=== PATIENT | male | born 1960 | race Caucasian/White ===

== ENCOUNTER 2016-05-31 10:38 | Emergency (ER) | payer MEDICARE, OTHER ==
--- NOTE | 2016-05-31 11:45 | ED ---
General Adult HPI - General Chief complaint: Recheck/Abnormal Lab/Rx Stated complaint: chills for 3 months, autoimmune Time Seen by Provider: 05/31/16 11:15 Source: patient, RN notes reviewed, old records reviewed Mode of arrival: ambulatory Limitations: physical limitation - History of Present Illness Initial comments: This is a 55-year-old male here for evaluation. Patient coming in for evaluation of chronic chills. Not very well. Patient's states he's been feeling cold for about 3 months now. States he just has periods of chills, cold sweats. Patient does have complex medical history related to HIV and it's comorbidities. Patient has not followed up with his infectious disease doctor in about 6 months. Unsure of CD4 counts. Denies recent fevers. He has concern for possible pneumonia. Patient does take multiple medications and hasn 't taken all medications as prescribed - Related Data Home Medications Medication Instructions Recorded Confirmed Baclofen [Lioresal] 20 mg PO TID 05/31/16 05/31/16 Diltiazem HCl [Cardizem LA] 360 mg PO DAILY 05/31/16 05/31/16 Divalproex ER [Depakote ER] 500 mg PO DAILY 05/31/16 05/31/16 Docusate [Colace] 100 mg PO DAILY PRN 05/31/16 05/31/16 Dolutegravir Sodium [Tivicay] 50 mg PO DAILY 05/31/16 05/31/16 Emtricitabine/Tenofovir [Truvada 1 each PO DAILY 05/31/16 05/31/16 200 mg-300 mg Tablet] Loperamide [Imodium] 2 mg PO DIRECTED PRN 05/31/16 05/31/16 Loratadine [Claritin] 10 mg PO DAILY 05/31/16 05/31/16 Meloxicam [Mobic] 7.5 mg PO DAILY 05/31/16 05/31/16 Morphine Sulfate ER [Ms Contin 15 mg PO Q12HR 05/31/16 05/31/16 15Mg] [place]-3/Dha/Epa/Fish Oil [Fish Oil 1 each PO DAILY 05/31/16 05/31/16 500 mg Softgel] Polyethylene Glycol 3350 [Miralax] 17 gm PO DAILY 05/31/16 05/31/16 Quinapril HCl [Accupril] 10 mg PO DAILY 05/31/16 05/31/16 Ranitidine HCl [Zantac] 150 mg PO BID 05/31/16 05/31/16 buPROPion HCL [Wellbutrin SR] 100 mg PO BID 05/31/16 05/31/16 Allergies Allergy/AdvReac Type Severity Reaction Status Date / Time azithromycin Allergy Rash/Hives Verified 05/31/16 10:56 [From Zithromax Z-Simone] Sulfa (Sulfonamide Allergy Rash/Hives Verified 05/31/16 10:55 Antibiotics) Review of Systems ROS Statement: Those systems with pertinent positive or pertinent negative responses have been documented in the HPI. ROS Other: All systems not noted in ROS Statement are negative. Past Medical History Past Medical History: COPD, GERD/Reflux, Hypertension, Osteoarthritis (OA) Additional Past Medical History / Comment(s): HIV/AIDS(1990) back pain, neuropathy,sleep apnea History of Any Multi-Drug Resistant Organisms: None Reported Additional Past Surgical History / Comment(s): neck surgery, throat surgery Past Psychological History: Bipolar, Depression, Panic Disorder Smoking Status: Current every day smoker Past Alcohol Use History: None Reported Past Drug Use History: None Reported General Exam Limitations: physical limitation General appearance: alert, in no apparent distress Head exam: Present: atraumatic, normocephalic, normal inspection Eye exam: Present: normal appearance, PERRL, EOMI. Absent: scleral icterus, conjunctival injection, periorbital swelling ENT exam: Present: normal exam, mucous membranes moist Neck exam: Present: normal inspection. Absent: tenderness, meningismus, lymphadenopathy Respiratory exam: Present: normal lung sounds bilaterally. Absent: respiratory distress, wheezes, rales, rhonchi, stridor Cardiovascular Exam: Present: regular rate, normal rhythm, normal heart sounds. Absent: systolic murmur, diastolic murmur, rubs, gallop, clicks GI/Abdominal exam: Present: soft, normal bowel sounds. Absent: distended, tenderness, guarding, rebound, rigid Extremities exam: Present: normal inspection, full ROM, normal capillary refill. Absent: tenderness, pedal edema, joint swelling, calf tenderness Back exam: Present: normal inspection Neurological exam: Present: alert, oriented X3, CN II-XII intact Psychiatric exam: Present: normal affect, normal mood Skin exam: Present: warm, dry, intact, normal color. Absent: rash Course Vital Signs 05/31/16 10:47 Temperature 97.9 F Pulse Rate 100 Respiratory 18 Rate Blood Pressure 117/92 O2 Sat by Pulse 96 Oximetry - Reevaluation(s) Reevaluation #1: 05/31/16 11:44 Patient's in no acute distress. Medical Decision Making - Medical Decision Making 52 female here with episodic chills, no specific findings frailness on physical exam, x-rays negative for pneumonia. Patient given suggestion to follow up with infectious disease Disposition Clinical Impression: Chills (without fever), Weakness Disposition: HOME SELF-CARE Condition: Good Instructions: Weakness (ED) Referrals: Osmin Morrison MD [Primary Care Provider] - 1-2 days
--- NOTE | 2016-05-31 11:55 | XR ---
EXAMINATION TYPE: XR chest 2V DATE OF EXAM: 05/31/2016 11:50 AM COMPARISON: NONE HISTORY: Cough congestion and chills for 3 months. TECHNIQUE: Frontal and lateral views of the chest are obtained. FINDINGS: Underlying emphysematous change is present. There is no focal air space opacity, pleural ef fusion, or pneumothorax seen. The cardiac silhouette size is within normal limits. The osseous str uctures are somewhat demineralized. Anterior fusion plate lower cervical spine is noted. IMPRESSION: Chronic emphysematous change without acute pulmonary process.
[2016-05-31 12:26] VITALS: BP 120/77; PULSE 72; RESP 16; TEMP 97.5
== END 2016-05-31 12:25 | disposition home or self-care (01) ==
LOC: EC 10:38
DX: R68.83 Chills (without fever) (principal); R53.1 Weakness; B20 Human immunodeficiency virus [HIV] disease; I10 Essential (primary) hypertension; K21.9 Gastro-esophageal reflux disease without esophagitis; Z88.1 Allergy status to other antibiotic agents; Z88.2 Allergy status to sulfonamides; M19.90 Unspecified osteoarthritis, unspecified site; F17.200 Nicotine dependence, unspecified, uncomplicated; F31.9 Bipolar disorder, unspecified; F41.0 Panic disorder [episodic paroxysmal anxiety]
CPT/HCPCS: 71020; 99283

== ENCOUNTER → 2016-06-27 | Outpatient (CLI) | payer MEDICARE, OTHER ==
--- NOTE | 2016-06-27 16:08 | CT ---
EXAMINATION TYPE: CT facial bones w con, CT soft tissue neck w con DATE OF EXAM: 06/27/2016 3:53 PM COMPARISON: NONE HISTORY: PT states of lump to left side of cheek area x1 year. CT DLP: 479.8 mGycm Automated exposure control for dose reduction was used. CONTRAST: CT scan of the facial bones is performed with IV Contrast, patient injected with 100 mL of Omnipaque 300. TECHNIQUE: CT scan of the sinuses is performed without contrast, axial images are obtained, coronal r eformatted images are also reviewed. FINDINGS: The paranasal sinuses including the frontal, ethmoid, sphenoid, and maxillary sinuses bila terally are well-aerated without abnormal opacification. Small mucous retention cyst at the base of the right maxillary sinus. The ostiomeatal complex is patent bilaterally on the coronal images. Visualized portion of mastoid air cells show no abnormal opacification. The globes are intact bilate rally. IMPRESSION: Small mucous retention cyst at the base of the right maxillary sinus. No additional abnor mality identified related to the sinuses. EXAMINATION TYPE: CT facial bones w con, CT soft tissue neck w con DATE OF EXAM: 06/27/2016 3:53 PM COMPARISON: NONE HISTORY: PT states of lump to left side of cheek area x1 year. CT DLP: 479.8 mGycm CONTRAST: CT scan of the neck is performed with IV Contrast, patient injected with 100 mL of Omnipaque 300. Contrast enhanced CT of the neck was performed from the skull base through the lung apices. AIRWAY: The supraglottic, glottic, and subglottic portions of the airway appear patent and free of mass. SALIVARY GLANDS: The left parotid gland is slightly atrophic relative to its right-sided counterpart. There is marked dilatation of the parotid Stensen's duct measuring up to 8.5 mm. Dilatation extends from intraglandular branches to the buccal opening. Definite radiopaque calculus is not identified wi th certainty. No obvious mass seen however clinical correlation advised. Right parotid gland is of no rmal size. Submandibular glands are unremarkable. THYROID GLAND: No nodules or masses seen. LYMPH NODES: No adenopathy seen greater than 1cm. LUNG APICES: No nodule or mass is seen. OTHER: Vascular structures are patent. No significant degenerative change of the cervical spine. N o abscess seen. Fluid within the left-sided mastoid air cells. IMPRESSION: There is marked dilatation of the parotid Stensen's duct measuring up to 8.5 mm. Dilatation extends from intraglandular branches to the buccal opening. Definite radiopaque calculus is not identified wi th certainty.
== END | disposition home or self-care (01) ==
LOC: RADCTMAIN 14:48
DX: M27.40 Unspecified cyst of jaw (principal)
CPT/HCPCS: 70487; 70491; Q9967

== ENCOUNTER 2017-04-19 11:57 | Emergency (ER) | payer MEDICARE, OTHER ==
[2017-04-19 12:11] VITALS: BP 137/75; PULSE 91; RESP 18; TEMP 97.8
--- NOTE | 2017-04-19 12:45 | ED ---
ENT HPI - General Chief complaint: Dental/Oral Stated complaint: mouth pain Time Seen by Provider: 04/19/17 12:11 Source: patient, RN notes reviewed Mode of arrival: ambulatory Limitations: no limitations - History of Present Illness Initial comments: This is a 56-year-old male who presents to the emergency department with chief complaint of mouth pain. Patient states that he has been experiencing right lower gum-line pain since yesterday. This morning he awoke and noticed some swelling of the left cheek. Patient states that he has had dental infections in the past has been treated with penicillin. He requests a prescription for antibiotics at this time. Denies abscess or drainage. Denies fever, chills, chest pain, shortness of breath, abdominal pain, nausea or vomiting, constipation or diarrhea, dysuria or hematuria, numbness or tingling, headache or vision changes. - Related Data Home Medications Medication Instructions Recorded Confirmed Baclofen [Lioresal] 20 mg PO TID 05/31/16 05/31/16 Diltiazem HCl [Cardizem LA] 360 mg PO DAILY 05/31/16 05/31/16 Divalproex ER [Depakote ER] 500 mg PO DAILY 05/31/16 05/31/16 Docusate [Colace] 100 mg PO DAILY PRN 05/31/16 05/31/16 Dolutegravir Sodium [Tivicay] 50 mg PO DAILY 05/31/16 05/31/16 Emtricitabine/Tenofovir (Tdf) 1 each PO DAILY 05/31/16 05/31/16 [Truvada 200 mg-300 mg Tablet] Loperamide [Imodium] 2 mg PO DIRECTED PRN 05/31/16 05/31/16 Loratadine [Claritin] 10 mg PO DAILY 05/31/16 05/31/16 Meloxicam [Mobic] 7.5 mg PO DAILY 05/31/16 05/31/16 Morphine Sulfate ER [Ms Contin 15 mg PO Q12HR 05/31/16 05/31/16 15Mg] [place]-3/Dha/Epa/Fish Oil [Fish Oil 1 each PO DAILY 05/31/16 05/31/16 500 mg Softgel] Polyethylene Glycol 3350 [Miralax] 17 gm PO DAILY 05/31/16 05/31/16 Quinapril HCl [Accupril] 10 mg PO DAILY 05/31/16 05/31/16 Ranitidine HCl [Zantac] 150 mg PO BID 05/31/16 05/31/16 buPROPion HCL [Wellbutrin SR] 100 mg PO BID 05/31/16 05/31/16 Previous Rx's Medication Instructions Recorded Amoxicillin 500 mg PO Q8H #30 capsule 05/31/16 Azithromycin [Zithromax] 0 mg PO DIRECTED #6 tab 05/31/16 Penicillin V Potassium [Pen Vee K] 500 mg PO QID 10 Days tab 04/19/17 Allergies Allergy/AdvReac Type Severity Reaction Status Date / Time azithromycin Allergy Rash/Hives Verified 04/19/17 12:11 [From Zithromax Z-Simone] Sulfa (Sulfonamide Allergy Rash/Hives Verified 04/19/17 12:11 Antibiotics) Review of Systems ROS Statement: Those systems with pertinent positive or pertinent negative responses have been documented in the HPI. ROS Other: All systems not noted in ROS Statement are negative. Past Medical History Past Medical History: COPD, GERD/Reflux, Hypertension, Osteoarthritis (OA) Additional Past Medical History / Comment(s): HIV/AIDS(1990) back pain, neuropathy,sleep apnea History of Any Multi-Drug Resistant Organisms: None Reported Additional Past Surgical History / Comment(s): neck surgery, throat surgery Past Psychological History: Bipolar, Depression, Panic Disorder Smoking Status: Current every day smoker Past Alcohol Use History: None Reported Past Drug Use History: None Reported General Exam - General Exam Comments Initial Comments: General: Awake and alert, well-developed; in no apparent distress. HEENT: Head atraumatic, normocephalic. Pupils are equal, round and reactive to light. Extraocular movements intact. Oropharynx moist without erythema or exudate. Very poor dentition with multiple missing and cracked teeth. Right lower gumline tenderness on palpation. Teeth #29 -#32 are missing. Mild swelling noted to right cheek. Neck: Supple. Normal ROM. Cardiovascular: Regular rate and rhythm. No murmurs, rubs or gallops. Chest symmetrical. Respiratory: Lungs clear to auscultation bilaterally. No wheezes, rales or rhonchi. Normal respiratory effort with no use of accessory muscles. Skin: [place], warm and dry without rashes or lesions. Neurological: Alert and oriented x3. CN II-XII grossly intact. Speech is fluent and answers are appropriate. No focal neuro deficits. Psychiatric: Normal mood and affect. No overt signs of depression or anxiety noted. Limitations: no limitations Course Vital Signs 04/19/17 12:09 Temperature 97.8 F Pulse Rate 91 Respiratory 18 Rate Blood Pressure 137/75 O2 Sat by Pulse 96 Oximetry Medical Decision Making - Medical Decision Making This is a 56-year-old male presents emergency Department with chief complaint of dental pain. States that there is tenderness on right lower gumline since yesterday. Patient states a history of dental infections which he has been treated for with penicillin. Requests antibiotics at this time. Patient has poor dentition and missing multiple teeth. No masses or areas of fluctuance noted. Patient will be discharged home with a prescription for penicillin VK. He is strongly advised to follow-up with the dentist. Patient is in agreement voices understanding. All questions were answered. Disposition Clinical Impression: Dental infection Disposition: HOME SELF-CARE Condition: Good Instructions: Dental Abscess (ED) Additional Instructions: Please take medications as prescribed. Please follow up with a dentist as soon as possible. Please follow up with primary care provider within 1-2 days. Return to emergency department if symptoms should worsen or any concerns arise. Prescriptions: Penicillin V Potassium [Pen Vee K] 500 mg PO QID 10 Days tab Referrals: Sweetie Sin MD [Primary Care Provider] - 1-2 days Time of Disposition: 12:54
== END 2017-04-19 13:03 | disposition home or self-care (01) ==
LOC: EC 11:57
DX: K04.7 Periapical abscess without sinus (principal); K21.9 Gastro-esophageal reflux disease without esophagitis; I10 Essential (primary) hypertension; F31.9 Bipolar disorder, unspecified; F17.200 Nicotine dependence, unspecified, uncomplicated; Z21 Asymptomatic human immunodeficiency virus [HIV] infection status; Z88.1 Allergy status to other antibiotic agents; Z88.2 Allergy status to sulfonamides; Z79.891 Long term (current) use of opiate analgesic; Z79.1 Long term (current) use of non-steroidal anti-inflammatories (NSAID); Z79.899 Other long term (current) drug therapy
CPT/HCPCS: 99282

== ENCOUNTER → 2017-12-22 | Outpatient (CLI) | payer MEDICARE, OTHER ==
--- NOTE | 2017-12-22 17:40 | US ---
EXAMINATION TYPE: US venous doppler duplex LE DATE OF EXAM: 12/22/2017 5:06 PM COMPARISON: NONE CLINICAL HISTORY: M79.661 Pain right leg, M79.662 Pain left leg. SIDE PERFORMED: Bilateral TECHNIQUE: The lower extremity deep venous system is examined utilizing real time linear array sonog bridget with graded compression, doppler sonography and color-flow sonography. VESSELS IMAGED: External Iliac Vein (EIV)-not seen on left Common Femoral Vein Deep Femoral Vein Greater Saphenous Vein * Femoral Vein Popliteal Vein Small Saphenous Vein * Proximal Calf Veins (* superficial vessels) Technically difficult study, extensive swelling, patient unable to move legs to help examiner. Patien t moving left leg involuntary during exam. Right Leg: Negative for DVT Left Leg: Negative for DVT Grayscale, color doppler, spectral doppler imaging performed of the deep veins of the lower extremiti es. There is normal flow, compressibility, vascular waveforms. IMPRESSION: Exam is slightly limited due to patient positioning, however no sonographic evidence of deep venous thrombosis of either lower extremity is identified.
== END | disposition home or self-care (01) ==
LOC: RADUSMAIN 16:11
PROVIDERS: ATTEND Internal Medicine
DX: R22.43 Localized swelling, mass and lump, lower limb, bilateral (principal)
CPT/HCPCS: 93970

== ENCOUNTER 2018-09-01 14:54 | Inpatient (IN) | payer MEDICARE, OTHER ==
[2018-09-01] MEDS ORDERED: IPRATROPIUM-ALBUTEROL 3 ML NEB INHALATION STA (15:45)
--- NOTE | 2018-09-01 15:48 | ED ---
General Adult HPI - General Chief complaint: Shortness of Breath Stated complaint: SHEEBA Time Seen by Provider: 09/01/18 15:24 Source: patient, RN notes reviewed Mode of arrival: ambulatory Limitations: physical limitation - History of Present Illness Initial comments: Patient is a pleasant 37-year-old male presenting to the emergency Department with complaints of difficulty breathing. Patient was trying to exert himself to get his taxes done. Patient became short of breath. Patient states he had to stop so he wasn't short of breath. Patient does have a history of similar symptoms previously associated with COPD. Patient states it took around 20 minutes for him to start feeling better. Patient states his breathing is mostly better at this time. Patient states he does still smoke. Patient denies any chest discomfort. No leg pain or leg swelling. - Related Data Home Medications Medication Instructions Recorded Confirmed Baclofen [Lioresal] 20 mg PO TID 05/31/16 05/31/16 Diltiazem HCl [Cardizem LA] 360 mg PO DAILY 05/31/16 05/31/16 Divalproex ER [Depakote ER] 500 mg PO DAILY 05/31/16 05/31/16 Docusate [Colace] 100 mg PO DAILY PRN 05/31/16 05/31/16 Dolutegravir Sodium [Tivicay] 50 mg PO DAILY 05/31/16 05/31/16 Emtricitabine/Tenofovir (Tdf) 1 each PO DAILY 05/31/16 05/31/16 [Truvada 200 mg-300 mg Tablet] Loperamide [Imodium] 2 mg PO DIRECTED PRN 05/31/16 05/31/16 Loratadine [Claritin] 10 mg PO DAILY 05/31/16 05/31/16 Meloxicam [Mobic] 7.5 mg PO DAILY 05/31/16 05/31/16 Morphine Sulfate ER [Ms Contin 15 mg PO Q12HR 05/31/16 05/31/16 15Mg] [place]-3/Dha/Epa/Fish Oil [Fish Oil 1 each PO DAILY 05/31/16 05/31/16 500 mg Softgel] Polyethylene Glycol 3350 [Miralax] 17 gm PO DAILY 05/31/16 05/31/16 Quinapril HCl [Accupril] 10 mg PO DAILY 05/31/16 05/31/16 Ranitidine HCl [Zantac] 150 mg PO BID 05/31/16 05/31/16 buPROPion HCL [Wellbutrin SR] 100 mg PO BID 05/31/16 05/31/16 Previous Rx's Medication Instructions Recorded Amoxicillin 500 mg PO Q8H #30 capsule 05/31/16 Azithromycin [Zithromax] 0 mg PO DIRECTED #6 tab 05/31/16 Penicillin V Potassium [Pen Vee K] 500 mg PO QID 10 Days tab 04/19/17 Allergies Allergy/AdvReac Type Severity Reaction Status Date / Time azithromycin Allergy Rash/Hives Verified 04/19/17 12:11 [From Zithromax Z-Simone] Sulfa (Sulfonamide Allergy Rash/Hives Verified 04/19/17 12:11 Antibiotics) Review of Systems ROS Statement: Those systems with pertinent positive or pertinent negative responses have been documented in the HPI. ROS Other: All systems not noted in ROS Statement are negative. Constitutional: Denies: fever Eyes: Denies: eye pain ENT: Denies: ear pain Respiratory: Reports: cough, dyspnea Cardiovascular: Denies: chest pain Endocrine: Denies: fatigue Gastrointestinal: Denies: abdominal pain Genitourinary: Denies: dysuria Musculoskeletal: Denies: back pain Skin: Denies: rash Neurological: Denies: weakness Past Medical History Past Medical History: COPD, GERD/Reflux, Hypertension, Osteoarthritis (OA) Additional Past Medical History / Comment(s): HIV/AIDS(1990) back pain, neuropathy,sleep apnea History of Any Multi-Drug Resistant Organisms: None Reported Additional Past Surgical History / Comment(s): neck surgery, throat surgery Past Psychological History: Bipolar, Depression, Panic Disorder Smoking Status: Current every day smoker Past Alcohol Use History: None Reported Past Drug Use History: None Reported General Exam Limitations: physical limitation General appearance: alert, in no apparent distress Head exam: Present: atraumatic Eye exam: Present: normal appearance ENT exam: Present: mucous membranes dry (Patient states this is chronic) Neck exam: Present: normal inspection Respiratory exam: Present: wheezes, decreased breath sounds, prolonged expira tory Cardiovascular Exam: Present: regular rate, normal rhythm GI/Abdominal exam: Present: soft. Absent: tenderness Extremities exam: Present: normal inspection. Absent: calf tenderness Neurological exam: Present: alert Psychiatric exam: Present: normal affect, normal mood Skin exam: Present: normal color Course Vital Signs 09/01/18 09/01/18 09/01/18 15:03 15:21 15:30 Temperature 98.2 F Pulse Rate 96 89 Respiratory 22 11 L Rate Blood Pressure 129/75 121/78 O2 Sat by Pulse 90 L 91 L 91 L Oximetry 09/01/18 09/01/18 09/01/18 15:40 15:50 16:00 Temperature Pulse Rate 90 93 Respiratory 17 19 Rate Blood Pressure 128/81 128/81 128/81 O2 Sat by Pulse 92 L Oximetry 09/01/18 09/01/18 09/01/18 16:20 16:23 16:30 Temperature Pulse Rate 80 84 84 Respiratory 23 16 Rate Blood Pressure O2 Sat by Pulse 96 Oximetry 09/01/18 09/01/18 16:32 16:40 Temperature Pulse Rate 82 73 Respiratory 10 L Rate Blood Pressure 116/85 O2 Sat by Pulse 91 L Oximetry - Reevaluation(s) Reevaluation #1: 09/01/18 15:46 I discussed smoking cessation for greater than 3 minutes. The risks of smoking were discussed with the patient including but not limited to wrist of cancer, stroke, coronary artery disease, and COPD. Also discussed with the patient were multiple methods of quitting smoking. Lastly, we discussed the financial cost of smoking. 09/01/18 17:08 There is concern for possible sepsis diagnosed at 1708. Blood culture and lactic acid and IV antibiotics have all been ordered. EKG Findings - EKG Comments: EKG Findings:: Appearance of sinus rhythm with a rate of 74. There also appears to be some A-V block. QRS 94. QT 388. QTC 4:30. Normal axis. Normal QRS. No acute ST change. Medical Decision Making - Medical Decision Making Patient reevaluated and resting comfortably in bed. Patient slightly improved. updated on results and plan. Case was discussed in detail with Dr. Courtney broderick, who will admit his patient with consult with Dr. Choe. - Lab Data Result diagrams: 09/01/18 15:33 09/01/18 15:33 Lab Results 09/01/18 09/01/18 09/01/18 Range/Units 15:33 15:33 15:33 WBC 10.9 H (3.8-10.6) k/uL RBC 5.19 (4.30-5.90) m/uL Hgb 16.0 (13.0-17.5) gm/dL Hct 46.8 (39.0-53.0) % MCV 90.2 (80.0-100.0) fL MCH 30.9 (25.0-35.0) pg MCHC 34.2 (31.0-37.0) g/dL RDW 14.2 (11.5-15.5) % Plt Count 312 (150-450) k/uL Neutrophils % 79 % Lymphocytes % 11 % Monocytes % 6 % Eosinophils % 3 % Basophils % 0 % Neutrophils # 8.6 H (1.3-7.7) k/uL Lymphocytes # 1.2 (1.0-4.8) k/uL Monocytes # 0.7 (0-1.0) k/uL Eosinophils # 0.3 (0-0.7) k/uL Basophils # 0.0 (0-0.2) k/uL PT (9.0-12.0) sec INR (<1.2) APTT (22.0-30.0) sec Sodium 137 (137-145) mmol/L Potassium 3.7 (3.5-5.1) mmol/L Chloride 99 (98-107) mmol/L Carbon Dioxide 27 (22-30) mmol/L Anion Gap 11 mmol/L BUN 14 (9-20) mg/dL Creatinine 1.05 (0.66-1.25) mg/dL Est GFR (CKD-EPI)AfAm >90 (>60 ml/min/1.73 sqM) Est GFR (CKD-EPI)NonAf 80 (>60 ml/min/1.73 sqM) Glucose 101 H (74-99) mg/dL Calcium 9.9 (8.4-10.2) mg/dL Total Bilirubin 0.5 (0.2-1.3) mg/dL AST 52 (17-59) U/L ALT 79 H (21-72) U/L Alkaline Phosphatase 59 (38-126) U/L Creatine Kinase 220 H (55-170) U/L Troponin I (0.000-0.034) ng/mL NT-Pro-B Natriuret Pep 103 pg/mL Total Protein 7.2 (6.3-8.2) g/dL Albumin 4.2 (3.5-5.0) g/dL 09/01/18 09/01/18 Range/Units 15:33 15:33 WBC (3.8-10.6) k/uL RBC (4.30-5.90) m/uL Hgb (13.0-17.5) gm/dL Hct (39.0-53.0) % MCV (80.0-100.0) fL MCH (25.0-35.0) pg MCHC (31.0-37.0) g/dL RDW (11.5-15.5) % Plt Count (150-450) k/uL Neutrophils % % Lymphocytes % % Monocytes % % Eosinophils % % Basophils % % Neutrophils # (1.3-7.7) k/uL Lymphocytes # (1.0-4.8) k/uL Monocytes # (0-1.0) k/uL Eosinophils # (0-0.7) k/uL Basophils # (0-0.2) k/uL PT 10.2 (9.0-12.0) sec INR 0.9 (<1.2) APTT 22.8 (22.0-30.0) sec Sodium (137-145) mmol/L Potassium (3.5-5.1) mmol/L Chloride (98-107) mmol/L Carbon Dioxide (22-30) mmol/L Anion Gap mmol/L BUN (9-20) mg/dL Creatinine (0.66-1.25) mg/dL Est GFR (CKD-EPI)AfAm (>60 ml/min/1.73 sqM) Est GFR (CKD-EPI)NonAf (>60 ml/min/1.73 sqM) Glucose (74-99) mg/dL Calcium (8.4-10.2) mg/dL Total Bilirubin (0.2-1.3) mg/dL AST (17-59) U/L ALT (21-72) U/L Alkaline Phosphatase (38-126) U/L Creatine Kinase (55-170) U/L Troponin I <0.012 (0.000-0.034) ng/mL NT-Pro-B Natriuret Pep pg/mL Total Protein (6.3-8.2) g/dL Albumin (3.5-5.0) g/dL - Radiology Data Radiology results: image reviewed (Chest x-ray does show some interstitial changes. Possible new infiltrate left base.) Critical Care Time Critical Care Time: Yes Total Critical Care Time: 32 Disposition Clinical Impression: Acute exacerbation of chronic obstructive pulmonary disease (COPD), Pneumonia, Sepsis Disposition: ADMITTED IP TO THIS HOSP Is patient prescribed a controlled substance at d/c from ED?: No Referrals: Daniela Rojo MD [Primary Care Provider] - 1-2 days Decision Time: 17:09
[2018-09-01 15:56] LABS: Basophils % (A) 0 %; Eosinophils # (A) 0.3 k/uL (0-0.7); Eosinophils % (A) 3 %; HCT 46.8 % (39.0-53.0); Lymphocytes # (A) 1.2 k/uL (1.0-4.8); Lymphocytes % (A) 11 %; MCH 30.9 pg (25.0-35.0); MCHC 34.2 g/dL (31.0-37.0); MCV 90.2 fL (80.0-100.0); Monocytes # (A) 0.7 k/uL (0-1.0); Monocytes % (A) 6 %; Neutrophils # (A) 8.6 k/uL (1.3-7.7); Neutrophils % (A) 79 %; Platelet Count 312 k/uL (150-450); RBC 5.19 m/uL (4.30-5.90); RDW 14.2 % (11.5-15.5); WBC 10.9 k/uL (3.8-10.6)
--- NOTE | 2018-09-01 16:17 | XR ---
EXAMINATION TYPE: XR chest 2V DATE OF EXAM: 09/01/2018 COMPARISON: Chest x-ray May 31, 2016. HISTORY: Dyspnea. TECHNIQUE: Frontal and lateral views of the chest are obtained. FINDINGS: There is chronic emphysematous change with new central vascular congestion. There is new l ateral focal left basilar opacity. The cardiac silhouette size is more prominent and now mildly enlar ged. No pleural effusion or pneumothorax is evident bilaterally. Anterior fusion plate lower cervic al spine is noted. IMPRESSION: Suspect CHF exacerbation as there is new mild cardiomegaly with mild to moderate central vascular congestion. Correlate for developing acute infiltrate lateral left lung base. Consider prog ress study
[2018-09-01 16:20] LABS: INR 0.9 (<1.2); Partial Thromboplastin Time 22.8 sec (22.0-30.0); Prothrombin Time 10.2 sec (9.0-12.0)
[2018-09-01 16:22] LABS: ALT 79 U/L (21-72); AST 52 U/L (17-59); Albumin 4.2 g/dL (3.5-5.0); Alkaline Phosphatase 59 U/L (38-126); Anion Gap 11 mmol/L; Blood Urea Nitrogen 14 mg/dL (9-20); Calcium 9.9 mg/dL (8.4-10.2); Carbon Dioxide 27 mmol/L (22-30); Chloride 99 mmol/L (98-107); Creatine Kinase 220 U/L (55-170); Glucose 101 mg/dL (74-99); Potassium 3.7 mmol/L (3.5-5.1); Sodium 137 mmol/L (137-145); Total Bilirubin 0.5 mg/dL (0.2-1.3); Total Protein 7.2 g/dL (6.3-8.2)
[2018-09-01] MEDS ORDERED: LEVOFLOXACIN 750MG-D5W PMX 750 MG in DEXTROSE/WATER 1 150ML.BAG IVPB STA (17:05)
[2018-09-01] MEDS ORDERED: PNEUMONIA PROTOCOL UTILIZED 1 EACH MISC PO PRN (17:05)
[2018-09-01] MEDS ORDERED: IPRATROPIUM-ALBUTEROL 3 ML NEB INHALATION PRN (17:05)
[2018-09-01] MEDS ORDERED: methylPREDNISolone SOD SUCCI 125 MG/2 ML VIAL IV STA (17:05)
[2018-09-01] MEDS ORDERED: HYDROcodone/APAP 5-325MG 1 EACH TAB PO STA (17:09)
[2018-09-01] MEDS: SODIUM CHLORIDE 0.9% 1,000 ML IV SCH (18:00)
[2018-09-01 20:00] LABS: Glucose,Whole Blood 156 mg/dL (75-99)
[2018-09-01] MEDS: IPRATROPIUM-ALBUTEROL 3 ML NEB INHALATION SCH (20:07)
[2018-09-01] MEDS: BACLOFEN 10 MG TAB PO SCH (22:24)
[2018-09-01] MEDS: GABAPENTIN 300 MG CAP PO SCH (22:24)
[2018-09-01] MEDS: traZODone HCL 50 MG TAB PO SCH (22:24)
[2018-09-02] MEDS: HYDROcodone/APAP 7.5-325MG 1 EACH TAB PO SCH ×4 (00:36→21:46)
[2018-09-02] MEDS: methylPREDNISolone SOD SUCCI 125 MG/2 ML VIAL IV SCH ×4 (01:55→17:39)
[2018-09-02] MEDS: LEVOTHYROXINE 25 MCG TAB PO SCH (06:09)
[2018-09-02 06:55] LABS: Glucose,Whole Blood 151 mg/dL (75-99)
[2018-09-02] MEDS ORDERED: DILTIAZEM CD 180 MG CAP.ER.24H PO SCH (09:00)
[2018-09-02] MEDS: IPRATROPIUM-ALBUTEROL 3 ML NEB INHALATION SCH ×4 (09:34→20:01)
[2018-09-02] MEDS: buPROPion XL 300 MG TAB.ER.24H PO SCH (09:36)
[2018-09-02] MEDS: CITALOPRAM HYDROBROMIDE 20 MG TAB PO SCH (09:36)
[2018-09-02] MEDS: LISINOPRIL 10 MG TAB PO SCH (09:36)
[2018-09-02] MEDS: BACLOFEN 10 MG TAB PO SCH ×3 (09:38→17:42)
[2018-09-02] MEDS: TIVICAY 50 MG PO SCH (09:47)
[2018-09-02] MEDS: DESCOVY (Emtricitabine/Tenofov Alafenam) 200-25 Mg Tablet PO SCH (09:47)
[2018-09-02] MEDS: INTELENCE 200 MG PO SCH ×2 (09:47→21:56)
[2018-09-02 10:02] LABS: Basophils % (A) 0 %; Eosinophils % (A) 0 %; HCT 48.4 % (39.0-53.0); HGB 15.8 gm/dL (13.0-17.5); Lymphocytes # (A) 0.6 k/uL (1.0-4.8); Lymphocytes % (A) 5 %; MCH 30.5 pg (25.0-35.0); MCHC 32.6 g/dL (31.0-37.0); MCV 93.6 fL (80.0-100.0); Mean Platelet Volume 6.5; Monocytes # (A) 0.2 k/uL (0-1.0); Monocytes % (A) 2 %; Neutrophils # (A) 10.9 k/uL (1.3-7.7); Neutrophils % (A) 93 %; Platelet Count 306 k/uL (150-450); RBC 5.17 m/uL (4.30-5.90); WBC 11.7 k/uL (3.8-10.6)
--- NOTE | 2018-09-02 10:03 | P.CONS ---
History of Present Illness - Reason for Consult Consult date: 09/02/18 HIV - History of Present Illness This is a 57-year-old male patient follows with Dr. Morrison for HIV. He is currently on Descovy, Intelence, Tivicay. Patient states that he takes his medication faithfully and has not missed any doses. He recently had a drop and is waiting for results. He states for the past week he has had trouble with cold and a sinus infection but yesterday when he was getting his taxes done he had a hard time getting to the vehicle and was having difficulty catching his breath which made it much worse. He also had a cough nonproductive. He came into [facility] emergency center for evaluation. He was found be afebrile, white count 10.9, creatinine 1.05. CK was 2020, ALT 79, influenza testing negative. Sputum culture obtained. Chest x-ray reveals CHF exacerbation, developing acute infiltrate lateral left lung. A repeat chest x- ray has been obtained this morning and pending. Cardiology is on consult for regular heartbeat and Dr. Choe for dyspnea. Patient has been started on Levaquin. Review of Systems All systems: negative Constitutional: Reports fatigue, Denies chills, Denies fever, Denies poor appetite Eyes: denies blurred vision, denies pain Ears, nose, mouth and throat: Reports nasal congestion, Reports nasal discharge, Reports post-nasal drip, Reports vertigo, Denies dysphagia, Denies headache, Denies mouth pain, Denies sore throat Cardiovascular: Reports dyspnea on exertion, Reports lightheadedness, Denies chest pain, Denies shortness of breath, Denies syncope Respiratory: Reports cough, Reports dyspnea, Denies cough with sputum, Denies excessive sputum, Denies hemoptysis, Denies home oxygen, Denies wheezing Gastrointestinal: Denies abdominal pain, Denies diarrhea, Denies loss of appetite, Denies nausea, Denies vomiting Genitourinary: Denies dysuria Musculoskeletal: Denies frequent falls, Denies gait dysfunction, Denies myalgias Integumentary: Denies pruritus, Denies rash, Denies wounds Neurological: Denies aphasia, Denies change in mentation, Denies gait dysfunction, Denies numbness, Denies seizures, Denies weakness Psychiatric: Denies anxiety, Denies depression Endocrine: Denies fatigue, Denies weight change Past Medical History Past Medical History: COPD, GERD/Reflux, Hypertension, Osteoarthritis (OA) Additional Past Medical History / Comment(s): HIV/AIDS(1990) back pain, neuropathy,sleep apnea History of Any Multi-Drug Resistant Organisms: None Reported Additional Past Surgical History / Comment(s): neck surgery, throat surgery Past Anesthesia/Blood Transfusion Reactions: No Reported Reaction Past Psychological History: Bipolar, Depression, Panic Disorder Smoking Status: Current every day smoker Past Alcohol Use History: None Reported Additional Past Alcohol Use History / Comment(s): Patient is a smoker of one half to one pack per day for 40 years. He denies any marijuana or street drug use. He drink alcohol very rarely. He is currently on disabilities. Hobbies include going to [employer]. Past Drug Use History: None Reported Medications and Allergies Home Medications Medication Instructions Recorded Confirmed Type Baclofen [Lioresal] 20 mg PO TID 05/31/16 09/01/18 History Diltiazem HCl [Cardizem LA] 360 mg PO DAILY 05/31/16 09/01/18 History Loratadine [Claritin] 10 mg PO DAILY 05/31/16 09/01/18 History Polyethylene Glycol 3350 [Miralax] 17 gm PO DAILY 05/31/16 09/01/18 History Quinapril HCl [Accupril] 10 mg PO DAILY 05/31/16 09/01/18 History Citalopram Hydrobromide [CeleXA] 40 mg PO DAILY 09/01/18 09/01/18 History Dolutegravir Sodium [Tivicay] 50 mg PO DAILY 09/01/18 09/01/18 History Emtricitabine/Tenofov Alafenam 1 tab PO DAILY 09/01/18 09/01/18 History [Descovy 200-25 mg Tablet] Gabapentin [Neurontin] 300 mg PO TID 09/01/18 09/01/18 History HYDROcodone/APAP 7.5-325MG [[place] 1 tab PO TID 09/01/18 09/01/18 History 7.5-325] Hydrochlorothiazide [Hydrodiuril] 25 mg PO DAILY 09/01/18 09/01/18 History Intelence 200mg 200 mg PO PC-BID 09/01/18 09/01/18 History Levothyroxine Sodium [Synthroid] 25 mcg PO DAILY 09/01/18 09/01/18 History buPROPion HCL [Wellbutrin XL] 300 mg PO DAILY 09/01/18 09/01/18 History traZODone HCL 150 mg PO HS 09/01/18 09/01/18 History Allergies Allergy/AdvReac Type Severity Reaction Status Date / Time azithromycin Allergy Rash/Hives Verified 09/01/18 17:14 [From Zithromax Z-Simone] Sulfa (Sulfonamide Allergy Rash/Hives Verified 09/01/18 17:14 Antibiotics) Physical Exam Vitals: Vital Signs Temp Pulse Pulse Resp BP BP Pulse Ox 09/02/18 05:10 97.6 F 81 20 127/76 92 L 09/01/18 22:30 22 09/01/18 20:56 98.4 F 79 20 142/91 93 L 09/01/18 20:16 88 09/01/18 20:09 88 09/01/18 18:07 88 L 09/01/18 18:00 89 15 133/82 09/01/18 17:50 77 28 H 133/82 94 L 09/01/18 17:40 85 18 133/82 95 09/01/18 17:30 87 17 114/85 92 L 09/01/18 17:20 100 18 114/85 09/01/18 17:10 114/85 09/01/18 17:00 70 39 H 116/85 93 L 09/01/18 16:50 77 18 116/85 93 L 09/01/18 16:40 73 10 L 116/85 91 L 09/01/18 16:32 82 09/01/18 16:30 84 16 96 09/01/18 16:23 84 09/01/18 16:20 80 23 09/01/18 16:00 128/81 09/01/18 15:50 93 19 128/81 09/01/18 15:40 90 17 128/81 92 L 09/01/18 15:30 89 11 L 121/78 91 L 09/01/18 15:21 91 L 09/01/18 15:03 98.2 F 96 22 129/75 90 L Intake and Output 09/01/18 09/02/18 09/02/18 22:59 06:59 14:59 Intake Total 190 Output Total 850 600 Balance -660 -600 Intake: Intake, IV Titration 190 Amount Levofloxacin 750Mg-D5w 150 Pmx 750 mg In Dextrose/ Water 1 150ml.bag @ 100 mls/hr IVPB ONCE STA Rx#: [id number] Sodium Chloride 0.9% 1, 40 000 ml @ 20 mls/hr IV . Q24H [facility] Rx#:[id number] Output: Urine 850 600 Other: Voiding Method Toilet # Voids 2 2 Weight 113.398 kg 109.3 kg Gen: This is a morbidly obese 57-year-old male. His resting bed and appears to be comfortable. HEENT: Head is atraumatic, normocephalic. Pupils equal, round. Sclerae is anicteric. NECK: Supple. No JVD. No lymphadenopathy. No thyromegaly. LUNGS: Decreased breath sounds, few scattered wheezes and rhonchi. No intercostal retractions. HEART: Irregular rate and rhythm. No murmur. ABDOMEN: Soft. Bowel sounds are present. No masses. No tenderness. EXTREMITIES: No pedal edema. No calf tenderness. Dorsalis pedis +2 bilaterally. NEUROLOGICAL: Patient is awake, alert and oriented x3. Cranial nerves 2 through 12 are grossly intact. Results Results: Laboratory Results WBC 10.9 k/uL (3.8-10.6) H 09/01/18 15:33 RBC 5.19 m/uL (4.30-5.90) 09/01/18 15:33 Hgb 16.0 gm/dL (13.0-17.5) 09/01/18 15:33 Hct 46.8 % (39.0-53.0) 09/01/18 15:33 MCV 90.2 fL (80.0-100.0) 09/01/18 15:33 MCH 30.9 pg (25.0-35.0) 09/01/18 15:33 MCHC 34.2 g/dL (31.0-37.0) 09/01/18 15:33 RDW 14.2 % (11.5-15.5) 09/01/18 15:33 Plt Count 312 k/uL (150-450) 09/01/18 15:33 Neutrophils % 79 % 09/01/18 15:33 Lymphocytes % 11 % 09/01/18 15:33 Monocytes % 6 % 09/01/18 15:33 Eosinophils % 3 % 09/01/18 15:33 Basophils % 0 % 09/01/18 15:33 Neutrophils # 8.6 k/uL (1.3-7.7) H 09/01/18 15:33 Lymphocytes # 1.2 k/uL (1.0-4.8) 09/01/18 15:33 Monocytes # 0.7 k/uL (0-1.0) 09/01/18 15:33 Eosinophils # 0.3 k/uL (0-0.7) 09/01/18 15:33 Basophils # 0.0 k/uL (0-0.2) 09/01/18 15:33 PT 10.2 sec (9.0-12.0) 09/01/18 15:33 INR 0.9 (<1.2) 09/01/18 15:33 APTT 22.8 sec (22.0-30.0) 09/01/18 15:33 Sodium 137 mmol/L (137-145) 09/01/18 15:33 Potassium 3.7 mmol/L (3.5-5.1) 09/01/18 15:33 Chloride 99 mmol/L (98-107) 09/01/18 15:33 Carbon Dioxide 27 mmol/L (22-30) 09/01/18 15:33 Anion Gap 11 mmol/L 09/01/18 15:33 BUN 14 mg/dL (9-20) 09/01/18 15:33 Creatinine 1.05 mg/dL (0.66-1.25) 09/01/18 15:33 Est GFR (CKD-EPI)AfAm >90 (>60 ml/min/1.73 sqM) 09/01/18 15:33 Est GFR (CKD-EPI)NonAf 80 (>60 ml/min/1.73 sqM) 09/01/18 15:33 Glucose 101 mg/dL (74-99) H 09/01/18 15:33 POC Glucose (mg/dL) 151 mg/dL (75-99) H 09/02/18 06:53 POC Glu Inseamer ID Dominique Miner 09/02/18 06:53 Plasma Lactic Acid Aniceto 1.2 mmol/L (0.7-2.0) 09/01/18 17:41 Calcium 9.9 mg/dL (8.4-10.2) 09/01/18 15:33 Total Bilirubin 0.5 mg/dL (0.2-1.3) 09/01/18 15:33 AST 52 U/L (17-59) 09/01/18 15:33 ALT 79 U/L (21-72) H 09/01/18 15:33 Alkaline Phosphatase 59 U/L (38-126) 09/01/18 15:33 Creatine Kinase 220 U/L (55-170) H 09/01/18 15:33 Troponin I <0.012 ng/mL (0.000-0.034) 09/01/18 15:33 NT-Pro-B Natriuret Pep 103 pg/mL 09/01/18 15:33 Total Protein 7.2 g/dL (6.3-8.2) 09/01/18 15:33 Albumin 4.2 g/dL (3.5-5.0) 09/01/18 15:33 Influenza Type A RNA Not Detected (Not Detectd) 09/01/18 17:41 Influenza Type B (PCR) Not Detected (Not Detectd) 09/01/18 17:41 CBC & Chem 7: 09/01/18 15:33 09/01/18 15:33 Labs: Abnormal Lab Results - Last 24 Hours (Table) 09/01/18 09/01/18 09/01/18 Range/Units 15:33 15:33 19:58 WBC 10.9 H (3.8-10.6) k/uL Neutrophils # 8.6 H (1.3-7.7) k/uL Glucose 101 H (74-99) mg/dL POC Glucose (mg/dL) 156 H (75-99) mg/dL ALT 79 H (21-72) U/L Creatine Kinase 220 H (55-170) U/L 09/02/18 Range/Units 06:53 WBC (3.8-10.6) k/uL Neutrophils # (1.3-7.7) k/uL Glucose (74-99) mg/dL POC Glucose (mg/dL) 151 H (75-99) mg/dL ALT (21-72) U/L Creatine Kinase (55-170) U/L Microbiology - Last 24 Hours (Table) 09/01/18 18:15 Gram Stain - Preliminary Sputum Sputum Culture - Preliminary Assessment and Plan Plan: This is a 57-year-old male patient presented to the hospital with difficulty breathing with 1 week long concern for cold and sinus symptoms. Influenza testing has been negative. Chest x-ray shows possible heart failure or developing infiltrate. Repeat chest x-ray has been obtained. Patient has history of HIV and continues on his medication. Unfortunately, patient does not have anyone to black pickler his medications from home. Patient is managed by Dr. Morrison and recommend follow-up after discharge. Further recommendations as patient progresses. The above dictated assessment and findings were discussed with Dr. Bentley. The impression and plan of care have been directed as dictated. Katalina Brown nurse practitioner acting as scribe for Dr. Bentley.
[2018-09-02] MEDS: GABAPENTIN 300 MG CAP PO SCH ×3 (10:07→21:46)
[2018-09-02] MEDS: LORATADINE 10 MG TAB PO SCH (10:07)
[2018-09-02] MEDS: POLYETHYLENE GLYCOL 3350 17 GM POWD.PACK PO SCH (10:08)
[2018-09-02] MEDS: HYDROCHLOROTHIAZIDE 25 MG TAB PO SCH (10:30)
[2018-09-02 10:32] LABS: ALT 68 U/L (21-72); AST 48 U/L (17-59); Albumin 4.1 g/dL (3.5-5.0); Alkaline Phosphatase 55 U/L (38-126); Blood Urea Nitrogen 15 mg/dL (9-20); Calcium 9.7 mg/dL (8.4-10.2); Chloride 100 mmol/L (98-107); Glucose 184 mg/dL (74-99); Magnesium 1.8 mg/dL (1.6-2.3); Potassium 4.1 mmol/L (3.5-5.1); Sodium 138 mmol/L (137-145); Total Bilirubin 0.4 mg/dL (0.2-1.3); Total Protein 6.9 g/dL (6.3-8.2)
--- NOTE | 2018-09-02 10:39 | P.HPIM ---
History of Present Illness H&P Date: 09/02/18 This is a 57-year-old male patient presented to the hospital with complaints of shortness of breath. Patient reports that he became increasingly short of breath over the past few days. Patient does have a known past medical history of COPD. Additional medical history includes HIV positive diagnosed in 1990, GERD, hypertension, osteoarthritis, bipolar, depression and panic disorder. Patient is also a current every day smoker. Patient reports he smokes 1 pack per day. Chest x-ray completed in ER showing suspect CHF exacerbation as there is new mild cardiomegaly with mild to moderate central vascular congestion correlate for developing acute infiltrate lateral left lung base. EKG showing sinus rhythm with second-degree AV block Mobitz type I. She started on Levaquin IV antibiotic. Patient also started on Solu-Medrol and DuoNeb breathing treatments. Pulmonary services have been consulted. Infectious disease also consulted. Sputum culture ordered. Cardiology services also consulted for irregular heart rhythm. 2-D echo has been ordered. At this time patient is on 5 L nasal cannula. Expiratory wheezing noted on auscultation. Short of breath with activity. Patient denies chest pain. Patient denies nausea vomiting or diarrhea. Patient denies any urinary burning or frequency. Review of Systems Please refer to HPI otherwise unremarkable Past Medical History Past Medical History: COPD, GERD/Reflux, Hypertension, Osteoarthritis (OA) Additional Past Medical History / Comment(s): HIV/AIDS(1990) back pain, neuropathy,sleep apnea History of Any Multi-Drug Resistant Organisms: None Reported Additional Past Surgical History / Comment(s): neck surgery, throat surgery Past Anesthesia/Blood Transfusion Reactions: No Reported Reaction Past Psychological History: Bipolar, Depression, Panic Disorder Smoking Status: Current every day smoker Past Alcohol Use History: None Reported Additional Past Alcohol Use History / Comment(s): Patient is a smoker of one half to one pack per day for 40 years. He denies any marijuana or street drug use. He drink alcohol very rarely. He is currently on disabilities. 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 Past Drug Use History: None Reported Medications and Allergies Home Medications Medication Instructions Recorded Confirmed Type Baclofen [Lioresal] 20 mg PO TID 05/31/16 09/01/18 History Diltiazem HCl [Cardizem LA] 360 mg PO DAILY 05/31/16 09/01/18 History Loratadine [Claritin] 10 mg PO DAILY 05/31/16 09/01/18 History Polyethylene Glycol 3350 [Miralax] 17 gm PO DAILY 05/31/16 09/01/18 History Quinapril HCl [Accupril] 10 mg PO DAILY 05/31/16 09/01/18 History Citalopram Hydrobromide [CeleXA] 40 mg PO DAILY 09/01/18 09/01/18 History Dolutegravir Sodium [Tivicay] 50 mg PO DAILY 09/01/18 09/01/18 History Emtricitabine/Tenofov Alafenam 1 tab PO DAILY 09/01/18 09/01/18 History [Descovy 200-25 mg Tablet] Gabapentin [Neurontin] 300 mg PO TID 09/01/18 09/01/18 History HYDROcodone/APAP 7.5-325MG [[place] 1 tab PO TID 09/01/18 09/01/18 History 7.5-325] Hydrochlorothiazide [Hydrodiuril] 25 mg PO DAILY 09/01/18 09/01/18 History Intelence 200mg 200 mg PO PC-BID 09/01/18 09/01/18 History Levothyroxine Sodium [Synthroid] 25 mcg PO DAILY 09/01/18 09/01/18 History buPROPion HCL [Wellbutrin XL] 300 mg PO DAILY 09/01/18 09/01/18 History traZODone HCL 150 mg PO HS 09/01/18 09/01/18 History Allergies Allergy/AdvReac Type Severity Reaction Status Date / Time azithromycin Allergy Rash/Hives Verified 09/01/18 17:14 [From Zithromax Z-Simone] Sulfa (Sulfonamide Allergy Rash/Hives Verified 09/01/18 17:14 Antibiotics) Physical Exam Vitals: Vital Signs Temp Pulse Pulse Resp BP BP Pulse Ox 09/02/18 09:44 92 09/02/18 09:34 92 09/02/18 05:10 97.6 F 81 20 127/76 92 L 09/01/18 22:30 22 09/01/18 20:56 98.4 F 79 20 142/91 93 L 09/01/18 20:16 88 09/01/18 20:09 88 09/01/18 18:07 88 L 09/01/18 18:00 89 15 133/82 09/01/18 17:50 77 28 H 133/82 94 L 09/01/18 17:40 85 18 133/82 95 09/01/18 17:30 87 17 114/85 92 L 09/01/18 17:20 100 18 114/85 09/01/18 17:10 114/85 09/01/18 17:00 70 39 H 116/85 93 L 09/01/18 16:50 77 18 116/85 93 L 09/01/18 16:40 73 10 L 116/85 91 L 09/01/18 16:32 82 09/01/18 16:30 84 16 96 09/01/18 16:23 84 09/01/18 16:20 80 23 09/01/18 16:00 128/81 09/01/18 15:50 93 19 128/81 09/01/18 15:40 90 17 128/81 92 L 09/01/18 15:30 89 11 L 121/78 91 L 09/01/18 15:21 91 L 09/01/18 15:03 98.2 F 96 22 129/75 90 L Intake and Output 09/01/18 09/02/18 09/02/18 22:59 06:59 14:59 Intake Total 190 Output Total 850 600 Balance -660 -600 Intake: Intake, IV Titration 190 Amount Levofloxacin 750Mg-D5w 150 Pmx 750 mg In Dextrose/ Water 1 150ml.bag @ 100 mls/hr IVPB ONCE STA Rx#: [id number] Sodium Chloride 0.9% 1, 40 000 ml @ 20 mls/hr IV . Q24H [facility] Rx#:[id number] Output: Urine 850 600 Other: Voiding Method Toilet Toilet # Voids 2 2 Weight 113.398 kg 109.3 kg Head normocephalic Neck supple Lungs diminished bilaterally with expiratory wheezing Heart regular rate and rhythm S1-S2, no rub or gallop Abdomen is soft nontender nondistended positive bowel sounds no hepatosplenomegaly Extremities no edema Neuro alert and orientated to 3 Results CBC & Chem 7: 09/02/18 09:18 09/01/18 15:33 Labs: Abnormal Lab Results - Last 24 Hours (Table) 09/01/18 09/01/18 09/01/18 Range/Units 15:33 15:33 19:58 WBC 10.9 H (3.8-10.6) k/uL Neutrophils # 8.6 H (1.3-7.7) k/uL Lymphocytes # (1.0-4.8) k/uL Glucose 101 H (74-99) mg/dL POC Glucose (mg/dL) 156 H (75-99) mg/dL ALT 79 H (21-72) U/L Creatine Kinase 220 H (55-170) U/L 09/02/18 09/02/18 Range/Units 06:53 09:18 WBC 11.7 H (3.8-10.6) k/uL Neutrophils # 10.9 H (1.3-7.7) k/uL Lymphocytes # 0.6 L (1.0-4.8) k/uL Glucose (74-99) mg/dL POC Glucose (mg/dL) 151 H (75-99) mg/dL ALT (21-72) U/L Creatine Kinase (55-170) U/L Microbiology - Last 24 Hours (Table) 09/01/18 18:15 Gram Stain - Preliminary Sputum Sputum Culture - Preliminary Thrombosis Risk Factor Assmnt - Choose All That Apply Each Factor Represents 1 point: Abnormal pulmonary function (COPD), Age 41-60 years, Heart failure (<1month), Obesity (BMI >25), Serious lung disease incl. pneumonia (< 1month) Other Risk Factors: No Other congenital or acquired thrombophilia - If yes, enter type in comment: No Thrombosis Risk Factor Assessment Total Risk Factor Score: 5 Thrombosis Risk Factor Assessment Level: High Risk Assessment and Plan Assessment: 1. Increased shortness breath related to COPD exacerbation and pneumonia. Pulmonary services have been consulted. Chest x-ray completed showing suspect CHF exacerbation as there is new mild cardiomegaly with mild to moderate central vascular congestion. Correlate for developing acute infiltrate left lung base. Pulmonary services have been consulted. Patient started on IV Solu-Medrol and Levaquin. Patient also on DuoNeb breathing treatments. Sputum culture has been ordered. 2. HIV positive. Patient diagnosed in 1990. Infectious disease has been consulted 3. Irregular heart rate. EKG completed showing sinus rhythm with second-degree AV block with orbits type I. Patient currently on cardiac monitoring. Cardiac services have been consulted. 2-D echo ordered 4. Nicotine dependence. Patient educated rate in 3 minutes on smoking cessation. Nicotine patch has been ordered 5. History of COPD. Pulmonary services have been consulted. 6. History of GERD 7. History of essential hypertension 8. History of osteoarthritis 9. History of bipolar depression 10. History of panic disorder DVT prophylaxis heparin. GI prophylaxis Protonix Pulmonary, cardiac and infectious disease consulted Time with Patient: Greater than 30 (Greater than 60% of the total time spent in counseling and coordination of care. I performed an examination of the patient and discussed their management with the Nurse Practitioner. I have reviewed the Nurse Practitioner's notes and agree with the documented findings and plan of care)
--- NOTE | 2018-09-02 10:49 | XR ---
EXAMINATION TYPE: XR chest 2V DATE OF EXAM: 09/02/2018 COMPARISON: Prior chest x-ray 09/01/2018 HISTORY: Pneumonia TECHNIQUE: Frontal and lateral views of the chest are obtained. FINDINGS: Prominent lung volumes, increased retrosternal airspace, flattening the hemidiaphragms agai n noted. There is patchy increased density present in the left lung base. Minimal posterior pleural t hickening noted on the lateral exam. Suspect apical bullous disease on the right. Postop changes are noted in the cervical spine. There is no pleural effusion or pneumothorax seen. The cardiac silhouet te size is within normal limits. The osseous structures are intact. IMPRESSION: Left lower lobe atelectasis versus pneumonia. There may be a small associated effusion.
[2018-09-02 11:13] LABS: Glucose,Whole Blood 138 mg/dL (75-99)
[2018-09-02] MEDS: NICOTINE 14MG/24HR PATCH TRANSDERM SCH (12:03)
[2018-09-02 12:14] LABS: Anion Gap 15 mmol/L; Carbon Dioxide 23 mmol/L (22-30)
--- NOTE | 2018-09-02 14:17 | P.CRDCN ---
History of Present Illness History of present illness: This is a pleasant 57-year-old male past medical history significant for COPD, chronic nicotine dependence, hypertension, HIV, osteoarthritis, bipolar, depression and panic disorder. He denies history of coronary artery disease. Patient is to see him in consultation secondary to an abnormal EKG on admission. He presented to the hospital yesterday with symptoms of shortness of breath and been progressively getting worse over the previous few days. He states about 1-week ago he started taking over the counter medications for sinus congestion and they have not been helping but seem to be making his symptoms worse. He is currently being treated for pneumonia as well as acute exacerbation of COPD. He denies any symptoms of chest discomfort, dizziness or palpitations. He is seen and examined sitting up at the edge of the bed. He is rather dyspneic with conversation. EKG reveals sinus mechanism prolonged [place] interval with blocked APCs suggestive of underlying AV abdoulaye disease. There is no old EKG for comparison. Chest x-ray on admission is suggestive of an exacerbation of heart failure with new mild cardiomegaly and mild to moderate central vascular congestion with a developing acute infiltrate at the left lateral lung base. Repeat this morning reveals left lower lobe atelectasis versus pneumonia with a small associated effusion. Laboratory data reviewed, WBC 11.7, hemoglobin 15.8, platelets 306, sodium 138, potassium 4.1, creatinine 0.94, magnesium 1.8, cardiac enzymes negative 2, and T proBNP 103, TSH 1.0. Current cardiac medications include diltiazem 360 mg daily, hydrochlorothiazide 25 mg daily and Accupril 10 mg daily. At the time of my exam: CONSTITUTIONAL: Denies fever. Denies chills. EYES: Denies blurred vision. Denies vision changes. Denies eye pain. EARS, NOSE, MOUTH & THROAT: Denies headache. Denies sore throat. Denies ear pain. CARDIOVASCULAR: Denies chest pain. Complains of shortness of breath. Denies orthopnea. Denies PND. Denies palpitations. RESPIRATORY: Denies cough. GASTROINTESTINAL: Denies abdominal pain. Denies diarrhea. Denies constipation. Denies nausea. Denies vomiting. MUSCULOSKELETAL: Denies myalgias. INTEGUMENTARY: Denies pruitis. Denies rash. NEUROLOGIC: Denies numbness. Denies tingling. Denies weakness. PSYCHIATRIC: Denies anxiety. Denies depression. ENDOCRINE: Denies fatigue. Denies weight change. Denies polydipsia. Denies polyurina. GENITOURINARY: Denies burning, hematuria or urgency with micturation. HEMATOLOGIC: Denies history of anemia. Denies bleeding. Blood pressure 120/77 heart rate 109 afebrile maintaining oxygen saturation on room air GENERAL: This is a 57-year-old male in no apparent distress at the time of my examination. Morbidly obese. HEENT: Head is atraumatic, normocephalic. Pupils are equal, round. Sclerae anicteric. Conjunctivae are clear. Mucous membranes of the mouth are moist. Neck is supple. There is no jugular venous distention. No carotid bruit is heard. LUNGS: Coarse rhonchi noted throughout with faint expiratory wheezes noted. No rales. No chest wall tenderness is noted on palpation or with deep breathing. HEART: Regular rate and rhythm without murmurs, rubs or gallops. S1 and S2 heard. ABDOMEN: Soft, nontender. Bowel sounds are heard. No organomegaly noted. EXTREMITIES: No evidence of peripheral edema and no calf tenderness noted. VASCULAR: Radial and dorsalis pedis pulses palpated, no evidence of clubbing. NEUROLOGIC: Patient is awake, alert and oriented x3. ASSESSMENT Acute exacerbation of chronic COPD Acute hypoxic respiratory failure Hypertension History of HIV diagnosed in 1990 Chronic nicotine dependence Morbid obesity, BMI 42 PLAN Overall clinically the patient is euvolemic and his shortness of breath is not seem to be related to an acute exacerbation of heart failure. We will obtain a 2-D echocardiogram and Doppler study to assess for possible pulmonary hypertension secondary to his lengthy history of nicotine dependence. TSH is requested and is normal. EKG reveals prolonged. However with blocked APCs suggestive of underlying AV abdoulaye disease. There is no immediate treatment for this abnormality other than monitoring. Recommend discontinuation of diltiazem. Can go up on lisinopril if needed for blood pressure control. Upon discharge follow up with Dr. Pineda. Ongoing medical management of acute exacerbation of COPD and pneumonia. No further cardiac testing required. Smoking cessation recommended. Thank you kindly for this consultation. Nurse Practitioner note has been reviewed, I agree with a documented findings and plan of care. Patient was seen and examined. Past Medical History Past Medical History: COPD, GERD/Reflux, Hypertension, Osteoarthritis (OA) Additional Past Medical History / Comment(s): HIV/AIDS(1990) back pain, n europathy,sleep apnea History of Any Multi-Drug Resistant Organisms: None Reported Additional Past Surgical History / Comment(s): neck surgery, throat surgery Past Anesthesia/Blood Transfusion Reactions: No Reported Reaction Past Psychological History: Bipolar, Depression, Panic Disorder Smoking Status: Current every day smoker Past Alcohol Use History: None Reported Additional Past Alcohol Use History / Comment(s): Patient is a smoker of one half to one pack per day for 40 years. He denies any marijuana or street drug use. He drink alcohol very rarely. He is currently on disabilities. Hobbies include going to [employer]. Past Drug Use History: None Reported Medications and Allergies Home Medications Medication Instructions Recorded Confirmed Type Baclofen [Lioresal] 20 mg PO TID 05/31/16 09/01/18 History Diltiazem HCl [Cardizem LA] 360 mg PO DAILY 05/31/16 09/01/18 History Loratadine [Claritin] 10 mg PO DAILY 05/31/16 09/01/18 History Polyethylene Glycol 3350 [Miralax] 17 gm PO DAILY 05/31/16 09/01/18 History Quinapril HCl [Accupril] 10 mg PO DAILY 05/31/16 09/01/18 History Citalopram Hydrobromide [CeleXA] 40 mg PO DAILY 09/01/18 09/01/18 History Dolutegravir Sodium [Tivicay] 50 mg PO DAILY 09/01/18 09/01/18 History Emtricitabine/Tenofov Alafenam 1 tab PO DAILY 09/01/18 09/01/18 History [Descovy 200-25 mg Tablet] Gabapentin [Neurontin] 300 mg PO TID 09/01/18 09/01/18 History HYDROcodone/APAP 7.5-325MG [Gazelle 1 tab PO TID 09/01/18 09/01/18 History 7.5-325] Hydrochlorothiazide [Hydrodiuril] 25 mg PO DAILY 09/01/18 09/01/18 History Intelence 200mg 200 mg PO PC-BID 09/01/18 09/01/18 History Levothyroxine Sodium [Synthroid] 25 mcg PO DAILY 09/01/18 09/01/18 History buPROPion HCL [Wellbutrin XL] 300 mg PO DAILY 09/01/18 09/01/18 History traZODone HCL 150 mg PO HS 09/01/18 09/01/18 History Allergies Allergy/AdvReac Type Severity Reaction Status Date / Time azithromycin Allergy Rash/Hives Verified 09/01/18 17:14 [From Zithromax Z-Simone] Sulfa (Sulfonamide Allergy Rash/Hives Verified 09/01/18 17:14 Antibiotics) Physical Exam Vitals: Vital Signs Temp Pulse Pulse Resp BP BP Pulse Ox 09/02/18 13:20 104 H 09/02/18 13:08 100 09/02/18 12:01 97.8 F 109 H 20 120/77 90 L 09/02/18 11:01 16 09/02/18 09:44 92 09/02/18 09:34 92 09/02/18 05:10 97.6 F 81 20 127/76 92 L 09/01/18 22:30 22 09/01/18 20:56 98.4 F 79 20 142/91 93 L 09/01/18 20:16 88 09/01/18 20:09 88 09/01/18 18:07 88 L 09/01/18 18:00 89 15 133/82 09/01/18 17:50 77 28 H 133/82 94 L 09/01/18 17:40 85 18 133/82 95 09/01/18 17:30 87 17 114/85 92 L 09/01/18 17:20 100 18 114/85 09/01/18 17:10 114/85 09/01/18 17:00 70 39 H 116/85 93 L 09/01/18 16:50 77 18 116/85 93 L 09/01/18 16:40 73 10 L 116/85 91 L 09/01/18 16:32 82 09/01/18 16:30 84 16 96 09/01/18 16:23 84 09/01/18 16:20 80 23 09/01/18 16:00 128/81 09/01/18 15:50 93 19 128/81 09/01/18 15:40 90 17 128/81 92 L 09/01/18 15:30 89 11 L 121/78 91 L 09/01/18 15:21 91 L 09/01/18 15:03 98.2 F 96 22 129/75 90 L Intake and Output 09/01/18 09/02/18 09/02/18 22:59 06:59 14:59 Intake Total 190 Output Total 850 600 Balance -660 -600 Intake: Intake, IV Titration 190 Amount Levofloxacin 750Mg-D5w 150 Pmx 750 mg In Dextrose/ Water 1 150ml.bag @ 100 mls/hr IVPB ONCE STA Rx#: [id number] Sodium Chloride 0.9% 1, 40 000 ml @ 20 mls/hr IV . Q24H [facility] Rx#:[id number] Output: Urine 850 600 Other: Voiding Method Toilet Toilet # Voids 2 2 Weight 113.398 kg 109.3 kg Results 09/02/18 09:18 09/02/18 09:18 Cardiac Enzymes 09/01/18 09/01/18 09/02/18 Range/Units 15:33 15:33 09:18 AST 52 48 (17-59) U/L Troponin I <0.012 (0.000-0.034) ng/mL 09/02/18 Range/Units 09:18 AST (17-59) U/L Troponin I <0.012 (0.000-0.034) ng/mL Coagulation 09/01/18 Range/Units 15:33 PT 10.2 (9.0-12.0) sec APTT 22.8 (22.0-30.0) sec CBC 09/01/18 09/02/18 Range/Units 15:33 09:18 WBC 10.9 H 11.7 H (3.8-10.6) k/uL RBC 5.19 5.17 (4.30-5.90) m/uL Hgb 16.0 15.8 (13.0-17.5) gm/dL Hct 46.8 48.4 (39.0-53.0) % Plt Count 312 306 (150-450) k/uL Comprehensive Metabolic Panel 09/01/18 09/02/18 Range/Units 15:33 09:18 Sodium 137 138 (137-145) mmol/L Potassium 3.7 4.1 (3.5-5.1) mmol/L Chloride 99 100 (98-107) mmol/L Carbon Dioxide 27 23 (22-30) mmol/L BUN 14 15 (9-20) mg/dL Creatinine 1.05 0.94 (0.66-1.25) mg/dL Glucose 101 H 184 H (74-99) mg/dL Calcium 9.9 9.7 (8.4-10.2) mg/dL AST 52 48 (17-59) U/L ALT 79 H 68 (21-72) U/L Alkaline Phosphatase 59 55 (38-126) U/L Total Protein 7.2 6.9 (6.3-8.2) g/dL Albumin 4.2 4.1 (3.5-5.0) g/dL Current Medications Generic Name Dose Route Start Last Admin Trade Name Freq PRN Reason Stop Dose Admin Hydrocodone Bitart/Acetaminophen 1 each 09/01/18 22:00 09/02/18 09:30 Gazelle 7.5-325 PO 1 each TID IMCHELLE Administration Albuterol/Ipratropium 3 ml 09/01/18 20:00 09/02/18 13:07 Duoneb 0.5 Mg-3 Mg/3 Ml Soln INHALATION 3 ml RT-QID MICHELLE Administration Albuterol/Ipratropium 3 ml 09/01/18 17:05 Duoneb 0.5 Mg-3 Mg/3 Ml Soln INHALATION RT-Q4H PRN shortness of breath Baclofen 20 mg 09/01/18 22:00 09/02/18 10:07 Lioresal PO 10 mg TID MICHELLE Administration Bupropion HCl 300 mg 09/02/18 09:00 09/02/18 09:36 Wellbutrin Xl PO 300 mg DAILY MICHELLE Administration Citalopram Hydrobromide 40 mg 09/02/18 09:00 09/02/18 09:36 Celexa PO 40 mg DAILY MICHELLE Administration Diltiazem HCl 360 mg 09/02/18 09:00 09/02/18 09:36 Cardizem Cd PO 360 mg DAILY MICHELLE Administration Gabapentin 300 mg 09/01/18 22:00 09/02/18 10:07 Neurontin PO 300 mg TID MICHELLE Administration Heparin Sodium (Porcine) 5,000 unit 09/02/18 21:00 Heparin SQ Q12HR MICHELLE Hydrochlorothiazide 25 mg 09/02/18 09:00 09/02/18 10:30 Hydrodiuril PO 25 mg DAILY MICHELLE Administration Sodium Chloride 1,000 mls @ 20 mls/hr 09/01/18 17:15 09/01/18 18:00 Saline 0.9% IV 20 mls/hr .Q24H MICHELLE Administration Levofloxacin 750 mg 09/02/18 18:00 Levaquin PO 09/07/18 18:01 DAILY@1800 MICHELLE Levothyroxine Sodium 25 mcg 09/02/18 06:30 09/02/18 06:09 Synthroid PO 25 mcg 0630 MICHELLE Administration Lisinopril 10 mg 09/02/18 09:00 09/02/18 09:36 Zestril PO 10 mg DAILY MICHELLE Administration Loratadine 10 mg 09/02/18 09:00 09/02/18 10:07 Claritin PO 10 mg DAILY MICHELLE Administration Methylprednisolone Sodium Succinate 60 mg 09/02/18 00:00 09/02/18 12:03 Solu-Medrol IV 60 mg Q6HR MICHELLE Administration Miscellaneous Information 1 each 09/01/18 17:05 Pneumonia Protocol Utilized PO ONCE PRN Per Protocol Nicotine 1 patch 09/02/18 10:27 09/02/18 12:03 Habitrol 14mg/24hr Patch TRANSDERM Not Given DAILY MICHELLE Tivicay ( 50 mg 09/02/18 09:00 09/02/18 09:47 Dolutegravir Sodium) PO Not Given 50 Mg DAILY MICHELLE Descovy ( 1 tab 09/02/18 09:00 09/02/18 09:47 Emtricitabine/ PO Not Given Tenofov Alafenam) DAILY MICHELLE 200-25 Mg Tablet Intelence ( 200 mg 09/02/18 08:30 09/02/18 09:47 Etravirine) 200mg PO Not Given PC-BID MICHELLE Pantoprazole Sodium 40 mg 09/03/18 07:30 Protonix PO AC-BRKFST MICHELLE Polyethylene Glycol 17 gm 09/02/18 09:00 09/02/18 10:08 Miralax PO 17 gm DAILY MICHELLE Administration Trazodone HCl 150 mg 09/01/18 21:45 09/01/18 22:24 Desyrel PO 150 mg HS MICHELLE Administration Intake and Output 09/01/18 09/02/18 09/02/18 22:59 06:59 14:59 Intake Total 190 Output Total 850 600 Balance -660 -600 Intake: Intake, IV Titration 190 Amount Levofloxacin 750Mg-D5w 150 Pmx 750 mg In Dextrose/ Water 1 150ml.bag @ 100 mls/hr IVPB ONCE STA Rx#: [id number] Sodium Chloride 0.9% 1, 40 000 ml @ 20 mls/hr IV . Q24H [facility] Rx#:[id number] Output: Urine 850 600 Other: Voiding Method Toilet Toilet # Voids 2 2 Weight 113.398 kg 109.3 kg 09/02/18 09:18 09/02/18 09:18
--- NOTE | 2018-09-02 15:09 | P.CNPUL ---
History of Present Illness Consult date: 09/02/18 Reason for consult: pneumonia History of present illness: 57-year-old male patient known history of HIV currently on antibiotics active treatment with adequate counts including CD4 count and undetectable viral load based on his most recent evaluation was done with his infectious disease and [place]. The patient is coming in for some increased shortness of breath. He started up by symptoms of upper respiratory tract infection and sinus congestion and drainage and subsequently started having increased dyspnea cough and chest that is so wheezing. His cough was nonproductive. He came into the emergency department and he was found to be afebrile with a white cell count of 10.9. His sputum cultures were obtained. Blood culture obtained. Chest x-ray showed questionable developing infiltrate and left lung base. [facility] that [facility] and the patient was started on broad-spectrum antibiotics. The patient is currently on Levaquin. The patient was also started on IV Solu-Medrol. Clinically the patient is doing much better compared to yesterday. He follow-up chest x-ray from today done earlier this morning shows a left lower lobe atelectasis/pneumonia. There may be a small left-sided pleural effusion. The influenza screen was negative. Vessel blood work and electrodes are all within normal limits. In terms of his previous history, the patient has had only 2 bouts of pneumonias in the past back in the year 1999 and 2011. He also has had previous history of complicated oropharyngeal candidiasis requiring prolonged treatment and ultimately recovers. No history of malignancies. The patient also has history of obstructive sleep apnea and is undergone UPPP. He is not utilizing any form of CPAP therapy at this point in time. Review of Systems Constitutional: Reports chronic pain, Reports weight gain, Denies chills, Denies fever Eyes: denies as per HPI, denies blurred vision, denies bulging eye, denies decreased vision, denies diplopia, denies discharge, denies dry eye, denies irritation, denies itching, denies pain, denies photophobia, denies loss of peripheral vision, denies loss of vision, denies tunnel vision/blind spots Ears: deny: decreased hearing, ear discharge, earache, tinnitus Ears, nose, mouth and throat: Denies headache, Denies sore throat Cardiovascular: Reports decreased exercise tolerance, Reports dyspnea on exertio n Respiratory: Reports cough, Reports dyspnea, Reports wheezing Gastrointestinal: Reports as per HPI Genitourinary: Reports as per HPI Musculoskeletal: Reports gait dysfunction, Reports limitation of motion, Reports low back pain Musculoskeletal: absent: ankle pain, ankle stiffness, ankle swelling Integumentary: Reports as per HPI Neurological: Reports as per HPI Psychiatric: Reports as per HPI Endocrine: Reports as per HPI Hematologic/Lymphatic: Reports as per HPI Allergic/Immunologic: Reports as per HPI Past Medical History Past Medical History: COPD, GERD/Reflux, Hypertension, Osteoarthritis (OA) Additional Past Medical History / Comment(s): HIV/AIDS(1990) back pain, neuropathy,sleep apnea History of Any Multi-Drug Resistant Organisms: None Reported Additional Past Surgical History / Comment(s): neck surgery, throat surgery Past Anesthesia/Blood Transfusion Reactions: No Reported Reaction Past Psychological History: Bipolar, Depression, Panic Disorder Smoking Status: Current every day smoker Past Alcohol Use History: None Reported Additional Past Alcohol Use History / Comment(s): Patient is a smoker of one half to one pack per day for 40 years. He denies any marijuana or street drug use. He drink alcohol very rarely. He is currently on disabilities. Hobbies include going to [employer]. Past Drug Use History: None Reported Medications and Allergies Home Medications Medication Instructions Recorded Confirmed Type Baclofen [Lioresal] 20 mg PO TID 05/31/16 09/01/18 History Diltiazem HCl [Cardizem LA] 360 mg PO DAILY 05/31/16 09/01/18 History Loratadine [Claritin] 10 mg PO DAILY 05/31/16 09/01/18 History Polyethylene Glycol 3350 [Miralax] 17 gm PO DAILY 05/31/16 09/01/18 History Quinapril HCl [Accupril] 10 mg PO DAILY 05/31/16 09/01/18 History Citalopram Hydrobromide [CeleXA] 40 mg PO DAILY 09/01/18 09/01/18 History Dolutegravir Sodium [Tivicay] 50 mg PO DAILY 09/01/18 09/01/18 History Emtricitabine/Tenofov Alafenam 1 tab PO DAILY 09/01/18 09/01/18 History [Descovy 200-25 mg Tablet] Gabapentin [Neurontin] 300 mg PO TID 09/01/18 09/01/18 History HYDROcodone/APAP 7.5-325MG [Hemet 1 tab PO TID 09/01/18 09/01/18 History 7.5-325] Hydrochlorothiazide [Hydrodiuril] 25 mg PO DAILY 09/01/18 09/01/18 History Intelence 200mg 200 mg PO PC-BID 09/01/18 09/01/18 History Levothyroxine Sodium [Synthroid] 25 mcg PO DAILY 09/01/18 09/01/18 History buPROPion HCL [Wellbutrin XL] 300 mg PO DAILY 09/01/18 09/01/18 History traZODone HCL 150 mg PO HS 09/01/18 09/01/18 History Allergies Allergy/AdvReac Type Severity Reaction Status Date / Time azithromycin Allergy Rash/Hives Verified 09/01/18 17:14 [From Zithromax Z-Simone] Sulfa (Sulfonamide Allergy Rash/Hives Verified 09/01/18 17:14 Antibiotics) Physical Exam Vitals: Vital Signs Temp Pulse Pulse Resp BP BP Pulse Ox 09/02/18 13:20 104 H 09/02/18 13:08 100 09/02/18 12:01 97.8 F 109 H 20 120/77 90 L 09/02/18 11:01 16 09/02/18 09:44 92 09/02/18 09:34 92 09/02/18 05:10 97.6 F 81 20 127/76 92 L 09/01/18 22:30 22 09/01/18 20:56 98.4 F 79 20 142/91 93 L 09/01/18 20:16 88 09/01/18 20:09 88 09/01/18 18:07 88 L 09/01/18 18:00 89 15 133/82 09/01/18 17:50 77 28 H 133/82 94 L 09/01/18 17:40 85 18 133/82 95 09/01/18 17:30 87 17 114/85 92 L 09/01/18 17:20 100 18 114/85 09/01/18 17:10 114/85 09/01/18 17:00 70 39 H 116/85 93 L 09/01/18 16:50 77 18 116/85 93 L 09/01/18 16:40 73 10 L 116/85 91 L 09/01/18 16:32 82 04/10/19 16:30 84 16 96 09/01/18 16:23 84 09/01/18 16:20 80 23 09/01/18 16:00 128/81 09/01/18 15:50 93 19 128/81 09/01/18 15:40 90 17 128/81 92 L 09/01/18 15:30 89 11 L 121/78 91 L 09/01/18 15:21 91 L 09/01/18 15:03 98.2 F 96 22 129/75 90 L Intake and Output 09/02/18 09/02/18 09/02/18 06:59 14:59 22:59 Intake Total 600 Output Total 600 Balance 0 Intake: Oral 600 Output: Urine 600 Other: Voiding Method Toilet # Voids 2 3 Weight 109.3 kg Gen. appearance, comfortable likely distress on room air oxygen Head exam was generally normal. There was no scleral icterus or corneal arcus. Mucous membranes were moist. Neck was supple and without jugular venous distension, thyromegaly, or carotid bruits. Carotids were easily palpable bilaterally. There was no adenopathy. The patient is edentulous. He has evidence of previous UPPP in his posterior oropharynx. Lungs sounds are diminished bilaterally along with some few scattered expiratory wheezes. Cardiac exam revealed the PMI to be normally situated and sized. The rhythm was regular and no extrasystoles were noted during several minutes of auscultation. The first and second heart sounds were normal and physiologic splitting of the second heart sound was noted. There were no murmurs, rubs, clicks, or gallops. Abdominal exam revealed normal bowel sounds. The abdomen was soft, non-tender, and without masses, organomegaly, or appreciable enlargement of the abdominal aorta. Patient is obese and the organs cannot be accurately palpated. Extremities revealed pedal edema place and there is no cyanosis or clubbing. The patient has this. See in the length of the legs and has chronic arthritis in lower extremities bilaterally and his difficulties with mobility and movement. Neurologically the patient is awake and alert and there is no focal neurological deficit and the creatinine nerves are intact. Examination of the skin revealed no evidence of significant rashes, suspicious appearing nevi or other concerning lesions. Results - Laboratory Findings CBC and BMP: 09/02/18 09:18 09/02/18 09:18 PT/INR, D-dimer PT 10.2 sec (9.0-12.0) 09/01/18 15:33 INR 0.9 (<1.2) 09/01/18 15:33 Abnormal lab findings: Abnormal Labs 09/01/18 09/01/18 09/01/18 15:33 15:33 19:58 WBC 10.9 H Neutrophils # 8.6 H Lymphocytes # Glucose 101 H POC Glucose (mg/dL) 156 H ALT 79 H Creatine Kinase 220 H 09/02/18 09/02/18 09/02/18 06:53 09:18 09:18 WBC 11.7 H Neutrophils # 10.9 H Lymphocytes # 0.6 L Glucose 184 H POC Glucose (mg/dL) 151 H ALT Creatine Kinase 09/02/18 11:10 WBC Neutrophils # Lymphocytes # Glucose POC Glucose (mg/dL) 138 H ALT Creatine Kinase - Diagnostic Findings Chest x-ray: image reviewed Assessment and Plan Plan: 1 acute shortness of breath secondary to acute left lower lobe pneumonia and COPD exacerbation 2 COPD exacerbation with secondary shortness of breath, improving 3 HIV well treated with adequate CD4 counts 4 COPD 5 hypertension 6 bipolar disorder 7 panic disorder 8 osteoarthritis with difficulty motivating gait due to extensive arthritis involving the hips bilaterally 9 obstructive sleep apnea post UPPP and currently not utilizing any form of CPAP therapy for ELISABETH. Plan Continue Levaquin. Continue IV Solu-Medrol. Continue the DuoNeb about treatm ents around the clock. Clinically improving. Currently on room air oxygen. Echocardiogram is to follow. We'll continue to follow.
[2018-09-02 15:18] LABS: Cholesterol 143 mg/dL (<200); HDL Cholesterol 34 mg/dL (40-60); LDL Cholesterol,Calculated 90 mg/dL (0-99); Triglycerides 94 mg/dL (<150)
[2018-09-02 16:54] LABS: Glucose,Whole Blood 160 mg/dL (75-99)
[2018-09-02] MEDS ORDERED: LEVOFLOXACIN 750 MG TAB PO SCH (18:00)
--- NOTE | 2018-09-02 18:57 | ECHOF ---
Referral Reason:sob MEASUREMENTS -------- HEIGHT: 160.0 cm WEIGHT: 108.9 kg BP: IVSd: 1.3 cm (0.6 - 1.1) LVIDd: 4.5 cm (3.9 - 5.3) LVPWd: 1.4 cm (0.6 - 1.1) IVSs: 1.9 cm LVIDs: 2.8 cm LVPWs: 2.1 cm Ao Diam: 3.5 cm (2.0 - 3.7) MV E Randall: 0.61 m/s MV DecT: 214 ms MV A Randall: 0.90 m/s MV E/A Ratio: 0.68 FINDINGS -------- Sinus rhythm. This was a techncally difficult study with suboptimal views, , Lumason utilized for enhancement of im ages. The left ventricular size is normal. There is mild concentric left ventricular hypertrophy. Overa ll left ventricular systolic function is normal with, an EF between 60 - 65 %. The right ventricle is normal in size. The aortic valve was not well visualized. The mitral valve was not well visualized. The tricuspid valve was not well visualized. Unable to estimate RVSP due to inadequate TR jet spect ral doppler profile. The pulmonic valve was not well visualized. There is no pericardial effusion. CONCLUSIONS -------- 1. This was a techncally difficult study with suboptimal views, , Lumason utilized for enhancement of images. 2. The left ventricular size is normal. 3. There is mild concentric left ventricular hypertrophy. 4. Overall left ventricular systolic function is normal with, an EF between 60 - 65 %. 5. The right ventricle is normal in size. 6. The aortic valve was not well visualized. 7. The mitral valve was not well visualized. 8. The tricuspid valve was not well visualized. 9. Unable to estimate RVSP due to inadequate TR jet spectral doppler profile. 10. The pulmonic valve was not well visualized. 11. There is no pericardial effusion. TOOLROOM CHECKER: Martha Edouard RDCS
[2018-09-02 20:35] LABS: Glucose,Whole Blood 158 mg/dL (75-99)
[2018-09-02] MEDS: SODIUM CHLORIDE 0.9% 1,000 ML IV SCH (21:42)
[2018-09-02] MEDS: HEPARIN SODIUM,PORCINE 5,000 UNIT/ML 1 ML VIAL SQ SCH ×2 (21:47→21:52)
[2018-09-02] MEDS: traZODone HCL 50 MG TAB PO SCH (21:47)
--- NOTE | 2018-09-02 23:24 | P.CON ---
Consult Note - . Consult date: 09/02/18 Assessment/Plan:: This is a 57-year-old male patient follows with Dr. Morrison for HIV. He is currently on Descovy, Intelence, Tivicay. Patient states that he takes his medication faithfully and has not missed any doses. He recently had a drop and is waiting for results. He states for the past week he has had trouble with cold and a sinus infection but yesterday when he was getting his taxes done he had a hard time getting to the vehicle and was having difficulty catching his breath which made it much worse. He also had a cough nonproductive. He came into [facility] emergency center for evaluation. He was found be afebrile, white count 10.9, creatinine 1.05. CK was 2020, ALT 79, influenza testing negative. Sputum culture obtained. Chest x-ray reveals CHF exacerbation, developing acute infiltrate lateral left lung. A repeat chest x- ray has been obtained this morning and pending. Cardiology is on consult for regular heartbeat and Dr. Choe for dyspnea. Patient has been started on Levaquin. Please see the consult note as dictated by nurse practitioner Mrs. Katalina Brown. Patient relates that his been doing well from his HIV. Last CD4 was 648 with undetectable viral load. He will maintain his current regimen of antiviral therapy hopefully somebody from his family can bring it to the hospital by his completing his treatment for his underlying pneumonia and exacerbation of COPD. He started to have some mild improvement of his symptoms with the respiratory treatments and antibiotic therapy. We'll need to have some input from the discharge planners as to the ability to obtain a nebulizer for home speaking complete some nebulized treatments upon his discharge responding well to antibiotic therapy with Levaquin with complete a 5 day course at this time. Also responded to some diuresis for likely some volume overload. I agree with the evaluation, assessment and plan this dictated by nurse practitioner Mrs. Katalina Brown.
[2018-09-03] MEDS: BACLOFEN 10 MG TAB PO SCH ×3 (00:07→15:43)
[2018-09-03] MEDS: methylPREDNISolone SOD SUCCI 125 MG/2 ML VIAL IV SCH ×3 (00:08→12:24)
[2018-09-03] MEDS: LEVOTHYROXINE 25 MCG TAB PO SCH (05:51)
[2018-09-03] MEDS ORDERED: PANTOPRAZOLE 40 MG TABLET PO SCH (07:30)
[2018-09-03] MEDS: HYDROcodone/APAP 7.5-325MG 1 EACH TAB PO SCH ×2 (08:05→15:42)
[2018-09-03] MEDS: GABAPENTIN 300 MG CAP PO SCH ×2 (08:05→15:43)
[2018-09-03] MEDS: LISINOPRIL 10 MG TAB PO SCH (08:07)
[2018-09-03] MEDS: LORATADINE 10 MG TAB PO SCH (08:07)
[2018-09-03] MEDS: HYDROCHLOROTHIAZIDE 25 MG TAB PO SCH (08:10)
[2018-09-03] MEDS: NICOTINE 14MG/24HR PATCH TRANSDERM SCH ×2 (08:11→10:19)
[2018-09-03] MEDS: POLYETHYLENE GLYCOL 3350 17 GM POWD.PACK PO SCH (08:11)
[2018-09-03] MEDS: buPROPion XL 300 MG TAB.ER.24H PO SCH (08:16)
[2018-09-03] MEDS: CITALOPRAM HYDROBROMIDE 20 MG TAB PO SCH (08:47)
[2018-09-03 09:39] LABS: ALT 114 U/L (21-72); AST 209 U/L (17-59); Albumin 4.4 g/dL (3.5-5.0); Alkaline Phosphatase 52 U/L (38-126); Anion Gap 11 mmol/L; Blood Urea Nitrogen 23 mg/dL (9-20); Calcium 9.8 mg/dL (8.4-10.2); Carbon Dioxide 25 mmol/L (22-30); Chloride 100 mmol/L (98-107); Glucose 182 mg/dL (74-99); Potassium 4.3 mmol/L (3.5-5.1); Sodium 136 mmol/L (137-145); Total Bilirubin 0.5 mg/dL (0.2-1.3); Total Protein 7.1 g/dL (6.3-8.2)
[2018-09-03 09:50] LABS: Basophils % (A) 0 %; Eosinophils % (A) 0 %; HCT 47.3 % (39.0-53.0); HGB 15.5 gm/dL (13.0-17.5); Lymphocytes # (A) 0.6 k/uL (1.0-4.8); Lymphocytes % (A) 3 %; MCH 30.2 pg (25.0-35.0); MCHC 32.7 g/dL (31.0-37.0); MCV 92.5 fL (80.0-100.0); Mean Platelet Volume 6.9; Monocytes # (A) 0.7 k/uL (0-1.0); Monocytes % (A) 3 %; Neutrophils # (A) 23.1 k/uL (1.3-7.7); Neutrophils % (A) 94 %; Platelet Count 373 k/uL (150-450); RBC 5.11 m/uL (4.30-5.90); RDW 13.1 % (11.5-15.5); WBC 24.5 k/uL (3.8-10.6)
[2018-09-03] MEDS: TIVICAY 50 MG PO SCH (10:18)
[2018-09-03] MEDS: INTELENCE 200 MG PO SCH (10:18)
[2018-09-03] MEDS: DESCOVY (Emtricitabine/Tenofov Alafenam) 200-25 Mg Tablet PO SCH (10:18)
[2018-09-03] MEDS: HEPARIN SODIUM,PORCINE 5,000 UNIT/ML 1 ML VIAL SQ SCH (10:18)
[2018-09-03] MEDS: IPRATROPIUM-ALBUTEROL 3 ML NEB INHALATION SCH ×3 (10:35→16:42)
--- NOTE | 2018-09-03 14:08 | P.PN ---
Subjective Progress Note Date: 09/03/18 Principal diagnosis: Acute shortness of breath, secondary to acute left lower lobe pneumonia and COPD exacerbation 57-year-old male patient known history of HIV currently on antibiotics active treatment with adequate counts including CD4 count and undetectable viral load based on his most recent evaluation was done with his infectious disease and [place]. The patient is coming in for some increased shortness of breath. He started up by symptoms of upper respiratory tract infection and sinus congestion and drainage and subsequently started having increased dyspnea cough and chest that is so wheezing. His cough was nonproductive. He came into the emergency department and he was found to be afebrile with a white cell count of 10.9. His sputum cultures were obtained. Blood culture obtained. Chest x-ray showed questionable developing infiltrate and left lung base. For that reason, the patient was moved to the hospital and the patient was started on broad-spectrum antibiotics. The patient is currently on Levaquin. The patient was also started on IV Solu-Medrol. Clinically the patient is doing much better compared to yesterday. He follow-up chest x-ray from today done earlier this morning shows a left lower lobe atelectasis/pneumonia. There may be a small left-sided pleural effusion. The influenza screen was negative. Vessel blood work and electrodes are all within normal limits. In terms of his previous history, the patient has had only 2 bouts of pneumonias in the past back in the year 1999 and 2011. He also has had previous history of complicated oropharyngeal candidiasis requiring prolonged treatment and ultimately recovers. No history of malignancies. The patient also has history of obstructive sleep apnea and is undergone UPPP. He is not utilizing any form of CPAP therapy at this point in time. On 09/03/2018 patient seen in follow-up on medical surgical floor. He is up ambulating with his walker in the hallway, tolerating activity quite well, room air pulse ox is 94%, no fever or chills, hemodynamically patient is stable, p atient's meds bronchospastic and dyspneic on today's exam, no significant cough or congestion. Blood and urine culture showed no growth. Patient is on Levaquin abiotic coverage, ID service is following, and patient is on his usual antiviral medications. No acute events overnight, and platelets of chest pain, no hemoptysis. Objective - Vital Signs Vital signs: Vital Signs Temp 97.5 F L 04/12/19 11:42 Pulse 98 09/03/18 11:42 Resp 22 09/03/18 11:42 BP 122/70 09/03/18 11:42 Pulse Ox 94 L 09/03/18 11:42 Intake & Output 09/02/18 09/03/18 09/03/18 18:59 06:59 18:59 Intake Total 600 Output Total 600 0 Balance 0 0 Intake: Oral 600 Output: Urine 600 0 Other: Voiding Method Toilet Toilet Toilet # Voids 3 2 0 - Exam GENERAL EXAM: Alert, active, comfortable in no apparent distress. HEAD: Normocephalic/atraumatic. EYES: Normal reaction of pupils, equal size. Conjunctiva pink, sclera white. NOSE: Clear with pink turbinates. THROAT: No erythema or exudates. NECK: No masses, no JVD, no thyroid enlargement, no adenopathy. CHEST: No chest wall deformity. Symmetrical expansion. LUNGS: Equal air entry with minimal wheezing CVS: Regular rate and rhythm, normal S1 and S2, no gallops, no murmurs, no rubs ABDOMEN: Soft, nontender. No hepatosplenomegaly, normal bowel sounds, no guarding or rigidity. EXTREMITIES: No clubbing, no edema, no cyanosis, 2+ pulses and upper and lower extremities. MUSCULOSKELETAL: Muscle strength and tone normal. SPINE: No scoliosis or deformity SKIN: No rashes CENTRAL NERVOUS SYSTEM: Alert and oriented -3. No focal deficits, tone is normal in all 4 extremities. PSYCHIATRIC: Alert and oriented -3. Appropriate affect. Intact judgment and insight. - Labs CBC & Chem 7: 09/03/18 08:40 09/03/18 08:40 Labs: Abnormal Lab Results - Last 24 Hours (Table) 09/02/18 09/02/18 09/02/18 Range/Units 08:31 16:52 20:33 WBC (3.8-10.6) k/uL Neutrophils # (1.3-7.7) k/uL Lymphocytes # (1.0-4.8) k/uL Sodium (137-145) mmol/L BUN (9-20) mg/dL Glucose (74-99) mg/dL POC Glucose (mg/dL) 160 H 158 H (75-99) mg/dL AST (17-59) U/L ALT (21-72) U/L HDL Cholesterol 34 L (40-60) mg/dL 09/03/18 09/03/18 Range/Units 08:40 08:40 WBC 24.5 H (3.8-10.6) k/uL Neutrophils # 23.1 H (1.3-7.7) k/uL Lymphocytes # 0.6 L (1.0-4.8) k/uL Sodium 136 L (137-145) mmol/L BUN 23 H (9-20) mg/dL Glucose 182 H (74-99) mg/dL POC Glucose (mg/dL) (75-99) mg/dL AST 209 H (17-59) U/L ALT 114 H (21-72) U/L HDL Cholesterol (40-60) mg/dL Microbiology - Last 24 Hours (Table) 09/01/18 18:15 Gram Stain - Final Sputum Sputum Culture - Final 09/01/18 17:41 Blood Culture - Preliminary Blood No Growth after 24 hours Assessment and Plan Plan: 1 acute shortness of breath secondary to acute left lower lobe pneumonia and COPD exacerbation 2 COPD exacerbation with secondary shortness of breath, improving 3 HIV well treated with adequate CD4 counts 4 COPD 5 hypertension 6 bipolar disorder 7 panic disorder 8 osteoarthritis with difficulty motivating gait due to extensive arthritis involving the hips bilaterally 9 obstructive sleep apnea post UPPP and currently not utilizing any form of CPAP therapy for ELISABETH. Plan: Patient is stable for discharge home with antibiotics per ID service recommendation. Doing well, tolerating ambulation, he is on room air, no worsening dyspnea, no cough or congestion. Patient can continue on albuterol inhalers on an as-needed basis, we will see the patient in the office in follow-up. I performed a history & physical examination of the patient and discussed their management with my nurse practitioner, Angela Barksdale. I reviewed the nurse practitioner's note and agree with the documented findings and plan of care. Lung sounds are positive for a few scattered wheezes. The findings and the impression was discussed with the patient. I attest to the documentation by the nurse practitioner. Time with Patient: Less than 30
--- NOTE | 2018-09-03 14:19 | P.DS ---
Providers Date of admission: 09/01/18 17:05 Expected date of discharge: 09/03/18 Attending physician: Daniela Rojo Consults: 09/01/18 17:05 Consult Physician Routine Consulting Provider: Janelle Choe Consult Reason/Comments: dyspnea Do you want consulting provider notified?: Yes 09/01/18 21:40 Consult Physician Routine Consulting Provider: Shade Bentley Consult Reason/Comments: HIV Do you want consulting provider notified?: Yes, Notify in am Consult Physician Urgent Consulting Provider: [facility] Consult Reason/Comments: irregular heart rhythm Do you want consulting provider notified?: Yes Primary care physician: [facility] Course: Discharge diagnosis 1. Increased shortness breath related to COPD exacerbation and acute community-acquired left lower lobe pneumonia. Continue prednisone taper and Levaquin for 7 more days. Patient also will be given a prescription for albuterol inhaler to use as needed. Patient to follow-up with pulmonary service in 1 week. 2. HIV positive. Patient diagnosed in 1990. 3. Irregular heart rate. EKG completed showing sinus rhythm with second-degree AV block with Mobitz type I. patient evaluated by cardiology. They have discontinued the Cardizem. 4. Nicotine dependence. Counseled patient on smoking cessation for greater than 3 minutes 5. History of COPD. 6. History of GERD 7. History of essential hypertension 8. History of osteoarthritis 9. History of bipolar depression 10. History of panic disorder 11. Acute hypoxic respiratory failure secondary to COPD and pneumonia 12. No evidence of CHF exacerbation per cardiology service. Echo shows an EF of 60-65% with mild LVH no evidence of pulmonary hypertension 13. Elevated LFTs at discharge ALT 114 and AST 209. Check hepatitis panel. Agents liver enzymes will be monitored while he does continue his Bernard. We'll have him follow-up in the office in 3 days to have repeat lab work and follow-up on the hepatitis panel results. Hospital course This is a 57-year-old male patient presented to the hospital with complaints of shortness of breath. Patient reports that he became increasingly short of breath over the past few days. Patient does have a known past medical history of COPD. Additional medical history includes HIV positive diagnosed in 1990, GERD, hypertension, osteoarthritis, bipolar, depression and panic disorder. Patient is also a current every day smoker. Patient reports he smokes 1 pack per day. Chest x-ray completed in ER showing suspect CHF exacerbation as there is new mild cardiomegaly with mild to moderate central vascular congestion correlate for developing acute infiltrate lateral left lung base. EKG showing sinus rhythm with second-degree AV block Mobitz type I. She started on Levaquin IV antibiotic. Patient also started on Solu-Medrol and DuoNeb breathing treatments. Pulmonary services have been consulted. Infectious disease also consulted. Sputum culture ordered. Cardiology services also consulted for irregular heart rhythm. 2-D echo has been ordered. At this time patient is on 5 L nasal cannula. Expiratory wheezing noted on auscultation. Short of breath with activity. Patient denies chest pain. Patient denies nausea vomiting or diarrhea. Patient denies any urinary burning or frequency. 09/03/2018 patient treated for pneumonia and COPD exacerbation. Initially started on IV steroids and IV antibiotics. He was switched over to oral antibiotics Levaquin. And will be placed on prednisone taper. Patient is to follow-up with pulmonary service outpatient in 1 week. Patient also be given a prescription for albuterol inhaler as needed. Infectious diseases recommending Levaquin for 7 more days to complete treatment for his pneumonia. Patient also seen evaluated by cardiology during this admission they discontinued the Cardizem. Blood pressures are stable. Patient will follow-up with cardiology in the office in 2 weeks. Patient's breathing has improved he is no longer requiring oxygen. He is medically stable for discharge. Also note that he did have elevated LFTs at discharge. Hepatitis panel has been ordered and follow-up with results in the office in 3 days and also will repeat LFTs at that time. I performed an examination of the patient and discussed their management with the physician Server Software Engineer. I have reviewed the Physician Server Software Engineer's notes and agree with the documented findings and plan of care Patient Condition at Discharge: Stable Plan - Discharge Summary Discharge Rx Participant: No New Discharge Prescriptions: New Levofloxacin [Levaquin] 500 mg PO DAILY #7 tab predniSONE 10 mg PO DIRECTED #30 tab Albuterol Inhaler [Ventolin Hfa Inhaler] 2 puff INHALATION Q6H PRN #1 inhaler PRN Reason: Shortness Of Breath Continue Polyethylene Glycol 3350 [Miralax] 17 gm PO DAILY Loratadine [Claritin] 10 mg PO DAILY Baclofen [Lioresal] 20 mg PO TID Quinapril HCl [Accupril] 10 mg PO DAILY Dolutegravir Sodium [Tivicay] 50 mg PO DAILY Levothyroxine Sodium [Synthroid] 25 mcg PO DAILY HYDROcodone/APAP 7.5-325MG [Bernard 7.5-325] 1 tab PO TID Hydrochlorothiazide [Hydrodiuril] 25 mg PO DAILY Gabapentin [Neurontin] 300 mg PO TID Emtricitabine/Tenofov Alafenam [Descovy 200-25 mg Tablet] 1 tab PO DAILY traZODone HCL 150 mg PO HS Intelence 200mg 200 mg PO PC-BID buPROPion HCL [Wellbutrin XL] 300 mg PO DAILY Discontinued Diltiazem HCl [Cardizem LA] 360 mg PO DAILY Citalopram Hydrobromide [CeleXA] 40 mg PO DAILY Discharge Medication List Baclofen [Lioresal] 20 mg PO TID 05/31/16 [History] Loratadine [Claritin] 10 mg PO DAILY 05/31/16 [History] Polyethylene Glycol 3350 [Miralax] 17 gm PO DAILY 05/31/16 [History] Quinapril HCl [Accupril] 10 mg PO DAILY 05/31/16 [History] Dolutegravir Sodium [Tivicay] 50 mg PO DAILY 09/01/18 [History] Emtricitabine/Tenofov Alafenam [Descovy 200-25 mg Tablet] 1 tab PO DAILY 09/01/18 [History] Gabapentin [Neurontin] 300 mg PO TID 09/01/18 [History] HYDROcodone/APAP 7.5-325MG [Bernard 7.5-325] 1 tab PO TID 09/01/18 [History] Hydrochlorothiazide [Hydrodiuril] 25 mg PO DAILY 09/01/18 [History] Intelence 200mg 200 mg PO PC-BID 09/01/18 [History] Levothyroxine Sodium [Synthroid] 25 mcg PO DAILY 09/01/18 [History] buPROPion HCL [Wellbutrin XL] 300 mg PO DAILY 09/01/18 [History] traZODone HCL 150 mg PO HS 09/01/18 [History] Albuterol Inhaler [Ventolin Hfa Inhaler] 2 puff INHALATION Q6H PRN #1 inhaler 09/03/18 [Rx] Levofloxacin [Levaquin] 500 mg PO DAILY #7 tab 09/03/18 [Rx] predniSONE 10 mg PO DIRECTED #30 tab 09/03/18 [Rx] Follow up Appointment(s)/Referral(s): [facility], [NON-STAFF] - 1 Week Daniela Rojo MD [Primary Care Provider] - 3 Days Marielena Pineda MD [STAFF PHYSICIAN] - 2 Weeks Janelle Choe MD [STAFF PHYSICIAN] - 1 Week Activity/Diet/Wound Care/Special Instructions: Diet: cardiac Activity: as tolerated restart celexa after completing Levaquin Discharge Disposition: HOME SELF-CARE
[2018-09-03 15:57] VITALS: BP 124/79; PULSE 150; RESP 16; TEMP 97.9
[2018-09-03 18:37] LABS: Hepatitis A Antibody IgM Non-Reactive (Non-Reactive); Hepatitis B Core IgM Non-Reactive (Non-Reactive)
--- NOTE | 2018-09-07 09:17 | CDI ---
Documentation Clarification Form Date: 09/03/18 From: Mandy Jackson Phone: If you have a question regarding this query, please contact Barbara Cavanaugh at [phone] between 8am and 5pm. Admit Date: 09/01/2018 5:05:00 PM Patient Name: Jack Luna Visit Number: [id number] Discharge Date: 09/03/2018 5:00:00 PM ATTENTION: The Clinical Documentation Specialists (CDI) and [facility] Coding Staff appreciate your assistance in clarifying documentation. Please respond to the clarification below the line at the bottom and electronically sign. The CDI & [facility] Coding staff will review the response and follow-up if needed. Please note: Queries are made part of the Legal Health Record. If you have any questions, please contact the author of this message via ITS. Honey Lowe PA-C/Dr. Daniela Rojo The patient presented with acute exacerbation of COPD, pneumonia and sepsis per documentation in the ED note. History/Risk Factors: Patient also had some acute respiratory failure and has HIV. Clinical Indicators: Elevated WBC but no fever or chills. WBC: 10.9 Lactic acid: 1.2 Blood cultures: No growth. Vitals signs on admission: T. 98.2, P. 96, R. 22, BP 129/75 Treatment: Antibiotics: IV Levaquin IV Bolus: No bolus given In your professional opinion, please clarify if these findings signify one of the following conditions, whether the condition is POA, and cause, if known: Condition Sepsis ruled out SIRS, without underlying infectious process Sepsis Severe Sepsis Septic Shock Other, please specify Unable to determine sepsis ruled out MTDD
== END 2018-09-03 17:00 | disposition home health service (06) | DRG 974 ==
LOC: EC 14:54 → 3NMEDONC 17:05
PROVIDERS: ADMIT Internal Medicine; ATTEND Internal Medicine
DX: J18.9 Pneumonia, unspecified organism (principal); J96.01 Acute respiratory failure with hypoxia; B20 Human immunodeficiency virus [HIV] disease; J44.1 Chronic obstructive pulmonary disease with (acute) exacerbation; J98.11 Atelectasis; Z68.41 Body mass index [BMI] 40.0-44.9, adult; J44.0 Chronic obstructive pulmonary disease with (acute) lower respiratory infection; E66.01 Morbid (severe) obesity due to excess calories; I44.1 Atrioventricular block, second degree; E87.70 Fluid overload, unspecified; I11.9 Hypertensive heart disease without heart failure; F17.210 Nicotine dependence, cigarettes, uncomplicated; F41.0 Panic disorder [episodic paroxysmal anxiety]; G47.33 Obstructive sleep apnea (adult) (pediatric); K21.9 Gastro-esophageal reflux disease without esophagitis; G62.9 Polyneuropathy, unspecified; M19.90 Unspecified osteoarthritis, unspecified site; F32.9 Major depressive disorder, single episode, unspecified; R74.8 Abnormal levels of other serum enzymes; Z79.890 Hormone replacement therapy; Z88.1 Allergy status to other antibiotic agents; Z88.2 Allergy status to sulfonamides
CPT/HCPCS: 36415; 71046; 80053; 80061; 80074; 82550; 83605; 83735; 83880; 84443; 84484; 85025; 85610; 85730; 87040; 87070; 87205; 87502; 93005; 93306; 94640; 96365; 96366; 96375; 99291

== ENCOUNTER → 2018-09-10 | Outpatient (CLI) | payer MEDICARE, OTHER ==
--- NOTE | 2018-09-11 08:41 | XR ---
EXAMINATION TYPE: XR knee 4V LT DATE OF EXAM: 09/10/2018 COMPARISON: NONE HISTORY: 57-year-old male with chronic left knee pain after multiple falls TECHNIQUE: 4 views FINDINGS: Moderate to severe loss of cartilage and joint space in the lateral compartment with subchondral scle rosis, mild bony remodeling, and marginal spurring. Slight focal 3 mm of articular surface depression of the posterior aspect of the lateral tibial plateau. Additional degenerative spurring in the media l and patellofemoral compartments. Small knee joint effusion. Extensor mechanism appears intact. Figueroa lla remains appropriate situated along the trochlear groove. IMPRESSION: 1. Tricompartmental osteoarthrosis, moderate to severe in the lateral compartment. 2. 3 mm of articular surface depression along the posterior aspect of the lateral tibial plateau may be secondary to chronic degenerative bony remodeling. Subtle insufficiency fracture difficult to excl ude.
== END | disposition home or self-care (01) ==
LOC: RADMRIMAIN 14:53
PROVIDERS: ATTEND Physical Medicine & Rehabilitation
DX: M16.11 Unilateral primary osteoarthritis, right hip (principal)

== ENCOUNTER 2019-03-31 08:51 | Emergency (ER) | payer MEDICARE, OTHER ==
[2019-03-31] MEDS ORDERED: SODIUM CHLORIDE 0.9% 500 ML 500 ML IV STA (09:12)
[2019-03-31] MEDS ORDERED: KETOROLAC 30 MG/ML 1 ML VIAL IVP STA (09:12)
--- NOTE | 2019-03-31 09:39 | ED ---
Allergic Reaction HPI - General Chief complaint: Allergic Reaction Stated complaint: Med reaction Time Seen by Provider: 03/31/19 09:01 Source: patient, RN notes reviewed Mode of arrival: ambulatory Limitations: no limitations - History of Present Illness Initial Comments: This is a 58-year-old male history of COPD who is being treated for a respiratory infection and started Levaquin this morning who states that he had neck tightness which is worse in his usual. He states he is normally a baclofen but has run out. He denies any rash a new shortness of breath likely with speech or any difficulty swallowing no chest tightness. No other modifying factors and doesn't fact that he feels a little bit better and he did earlier. He states he also was on some cough medication and he did not like last night is a koi feel out of it. He does state he has chest x-ray done this morning at this facility. MD Complaint: allergic reaction - Related Data Home Medications Medication Instructions Recorded Confirmed Baclofen [Lioresal] 20 mg PO TID 05/31/16 09/01/18 Loratadine [Claritin] 10 mg PO DAILY 05/31/16 09/01/18 Polyethylene Glycol 3350 [Miralax] 17 gm PO DAILY 05/31/16 09/01/18 Quinapril HCl [Accupril] 10 mg PO DAILY 05/31/16 09/01/18 Dolutegravir Sodium [Tivicay] 50 mg PO DAILY 09/01/18 09/01/18 Emtricitabine/Tenofov Alafenam 1 tab PO DAILY 09/01/18 09/01/18 [Descovy 200-25 mg Tablet] Gabapentin [Neurontin] 300 mg PO TID 09/01/18 09/01/18 HYDROcodone/APAP 7.5-325MG [[place] 1 tab PO TID 09/01/18 09/01/18 7.5-325] Hydrochlorothiazide [Hydrodiuril] 25 mg PO DAILY 09/01/18 09/01/18 Intelence 200mg 200 mg PO PC-BID 09/01/18 09/01/18 Levothyroxine Sodium [Synthroid] 25 mcg PO DAILY 09/01/18 09/01/18 buPROPion HCL [Wellbutrin XL] 300 mg PO DAILY 09/01/18 09/01/18 traZODone HCL 150 mg PO HS 09/01/18 09/01/18 Previous Rx's Medication Instructions Recorded Albuterol Inhaler [Ventolin Hfa 2 puff INHALATION Q6H PRN #1 09/03/18 Inhaler] inhaler Levofloxacin [Levaquin] 500 mg PO DAILY #7 tab 09/03/18 predniSONE 10 mg PO DIRECTED #30 tab 09/03/18 Allergies Allergy/AdvReac Type Severity Reaction Status Date / Time azithromycin Allergy Rash/Hives Verified 03/31/19 08:57 [From Zithromax Z-Simone] Sulfa (Sulfonamide Allergy Rash/Hives Verified 03/31/19 08:57 Antibiotics) Review of Systems ROS Statement: Those systems with pertinent positive or pertinent negative responses have been documented in the HPI. ROS Other: All systems not noted in ROS Statement are negative. Past Medical History Past Medical History: COPD, GERD/Reflux, Hypertension, Osteoarthritis (OA) Additional Past Medical History / Comment(s): HIV/AIDS(1990) back pain, neuropathy,sleep apnea History of Any Multi-Drug Resistant Organisms: None Reported Additional Past Surgical History / Comment(s): neck surgery, throat surgery Past Anesthesia/Blood Transfusion Reactions: No Reported Reaction Past Psychological History: Bipolar, Depression, Panic Disorder Smoking Status: Current every day smoker Past Alcohol Use History: None Reported Past Drug Use History: None Reported General Exam - General Exam Comments Initial Comments: This is a well-developed well-nourished awake alert oriented times 3 male Limitations: no limitations General appearance: alert, anxious Head exam: Present: atraumatic, normocephalic, normal inspection Eye exam: Present: normal appearance, PERRL, EOMI. Absent: scleral icterus, conjunctival injection, periorbital swelling ENT exam: Present: normal exam, mucous membranes moist Neck exam: Present: normal inspection, tenderness (Some mild tenderness palpation over the paraspinous muscles as well as the trapezius muscles. No midline tenderness somewhat restricted range of motion secondary to the discomfort.). Absent: meningismus, lymphadenopathy Respiratory exam: Present: normal lung sounds bilaterally. Absent: respiratory distress, wheezes, rales, rhonchi, stridor Cardiovascular Exam: Present: regular rate, normal rhythm, normal heart sounds. Absent: systolic murmur, diastolic murmur, rubs, gallop, clicks GI/Abdominal exam: Absent: distended, tenderness, guarding, rebound, rigid Extremities exam: Present: normal inspection, full ROM, normal capillary refill. Absent: tenderness, pedal edema, joint swelling, calf tenderness Back exam: Present: normal inspection Neurological exam: Present: alert, oriented X3, CN II-XII intact Psychiatric exam: Present: normal affect, normal mood Skin exam: Present: warm, dry, intact, normal color. Absent: rash Course Vital Signs 03/31/19 03/31/19 08:54 10:57 Temperature 98.1 F Pulse Rate 98 79 Respiratory 20 16 Rate Blood Pressure 140/90 110/84 O2 Sat by Pulse 98 94 L Oximetry - Reevaluation(s) Reevaluation #1: 03/31/19 09:40 I did review the imaging done outpatient this morning shows evidence of bronchitis and emphysema. Medical Decision Making - Medical Decision Making Patient is feeling much improved at this time. His lab work is within normal limits we did discuss changing antibiotics or cough medication he states he did read a continue on with the medication he currently has. The presentation is consistent with muscle spasm. She'll be discharged is follow-up with his doctor and return when necessary - Lab Data Result diagrams: 03/31/19 09:32 Lab Results 03/31/19 Range/Units 09:32 Sodium 138 (137-145) mmol/L Potassium 4.4 (3.5-5.1) mmol/L Chloride 103 (98-107) mmol/L Carbon Dioxide 25 (22-30) mmol/L Anion Gap 10 mmol/L BUN 16 (9-20) mg/dL Creatinine 1.09 (0.66-1.25) mg/dL Est GFR (CKD-EPI)AfAm 87 (>60 ml/min/1.73 sqM) Est GFR (CKD-EPI)NonAf 76 (>60 ml/min/1.73 sqM) Glucose 98 (74-99) mg/dL Calcium 10.1 (8.4-10.2) mg/dL Magnesium 1.8 (1.6-2.3) mg/dL Total Bilirubin 0.3 (0.2-1.3) mg/dL AST 32 (17-59) U/L ALT 43 (21-72) U/L Alkaline Phosphatase 55 (38-126) U/L Total Protein 7.4 (6.3-8.2) g/dL Albumin 4.4 (3.5-5.0) g/dL Disposition Clinical Impression: Myofascial pain, Neck pain Disposition: HOME SELF-CARE Condition: Good Instructions (If sedation given, give patient instructions): Neck Pain (ED), Musculoskeletal Pain (ED) Additional Instructions: Continue with your current medications as we discussed Is patient prescribed a controlled substance at d/c from ED?: No Referrals: Daniela Rojo MD [Primary Care Provider] - 1-2 days
[2019-03-31 09:59] LABS: Albumin 4.4 g/dL (3.5-5.0); Calcium 10.1 mg/dL (8.4-10.2); Magnesium 1.8 mg/dL (1.6-2.3); Potassium 4.4 mmol/L (3.5-5.1); Total Bilirubin 0.3 mg/dL (0.2-1.3); Total Protein 7.4 g/dL (6.3-8.2)
[2019-03-31 12:13] VITALS: BP 140/74; PULSE 78; RESP 19; TEMP 97.9
== END 2019-03-31 12:10 | disposition home or self-care (01) ==
LOC: EC 08:51
DX: M54.2 Cervicalgia (principal); M79.18 Myalgia, other site; I10 Essential (primary) hypertension; F31.9 Bipolar disorder, unspecified; F41.0 Panic disorder [episodic paroxysmal anxiety]; B20 Human immunodeficiency virus [HIV] disease; F17.200 Nicotine dependence, unspecified, uncomplicated; Z79.890 Hormone replacement therapy; Z79.899 Other long term (current) drug therapy; Z88.1 Allergy status to other antibiotic agents; Z88.2 Allergy status to sulfonamides
CPT/HCPCS: 36415; 80053; 83735; 99283; 96374; 96361; J1885

== ENCOUNTER → 2019-03-31 | Outpatient (CLI) | payer MEDICARE, OTHER ==
--- NOTE | 2019-03-31 08:09 | XR ---
EXAMINATION TYPE: XR chest 2V DATE OF EXAM: 03/31/2019 COMPARISON: Prior chest x-ray 09/02/2018, 10/15/2018, CT 06/27/2016 HISTORY: Cough and congestion TECHNIQUE: Frontal and lateral views of the chest are obtained. FINDINGS: Hyperinflation is present, postop changes to the cervical spine are noted. There is increa sed AP diameter of the chest, flattening the hemidiaphragms, retrosternal airspace is prominent. No e vident pneumothorax or pleural effusion. Cardiac mediastinal silhouette, pulmonary vascularity and hi la are stable. Strand-like densities at the lung bases likely reflect scarring. There is bronchial wa ll thickening. IMPRESSION: Correlate for bronchitis, emphysema
== END | disposition home or self-care (01) ==
LOC: RADXRMAIN 07:10
PROVIDERS: ATTEND Internal Medicine
DX: R05 Cough (principal)
CPT/HCPCS: 71046

== ENCOUNTER 2019-06-05 09:58 | Emergency (ER) | payer MEDICARE, OTHER ==
[2019-06-05 10:05] VITALS: TEMP 97.7
[2019-06-05] MEDS ORDERED: SODIUM CHLORIDE 0.9% 500 ML 500 ML IV STA (10:17)
[2019-06-05] MEDS ORDERED: IPRATROPIUM-ALBUTEROL 3 ML NEB INHALATION STA (10:23)
--- NOTE | 2019-06-05 10:23 | ED ---
General Adult HPI - General Chief complaint: Shortness of Breath Stated complaint: Cough Time Seen by Provider: 06/05/19 10:12 Source: patient, RN notes reviewed Mode of arrival: ambulatory Limitations: no limitations - History of Present Illness Initial comments: Social 58-year-old male presents emergency Department chief complaint of cough congestion shortness of breath. Patient states his been sick for last 1 week did see his PCP this week and was not placed any medication. Patient states that he coughed the the other day getting out of shower and he has left lower rib pain. Patient states her stated deep breath. He denies any significant c ardiac history is a daily smoker and admits that he is HIV positive. Patient is on current antivirals. Patient denies any nausea vomiting diarrhea constipation. Patient denies any current headache or dizziness - Related Data Home Medications Medication Instructions Recorded Confirmed Loratadine [Claritin] 10 mg PO DAILY 05/31/16 03/31/19 Polyethylene Glycol 3350 [Miralax] 17 gm PO DAILY 05/31/16 03/31/19 Quinapril HCl [Accupril] 10 mg PO DAILY 05/31/16 03/31/19 Dolutegravir Sodium [Tivicay] 50 mg PO DAILY 09/01/18 03/31/19 Emtricitabine/Tenofov Alafenam 1 tab PO DAILY 09/01/18 03/31/19 [Descovy 200-25 mg Tablet] Gabapentin [Neurontin] 300 mg PO TID 09/01/18 03/31/19 Hydrochlorothiazide [Hydrodiuril] 25 mg PO DAILY 09/01/18 03/31/19 Levothyroxine Sodium [Synthroid] 25 mcg PO DAILY 09/01/18 03/31/19 buPROPion HCL [Wellbutrin XL] 300 mg PO DAILY 09/01/18 03/31/19 traZODone HCL 150 mg PO HS 09/01/18 03/31/19 Albuterol Inhaler [Ventolin Hfa 2 puff INHALATION RT-Q6H PRN 03/31/19 03/31/19 Inhaler] Baclofen [Lioresal] 10 mg PO HS 03/31/19 03/31/19 Citalopram Hydrobromide [CeleXA] 40 mg PO DAILY 03/31/19 03/31/19 Diltiazem HCl [Diltiazem ER] 360 mg PO DAILY 03/31/19 03/31/19 Docusate [Colace] 100 mg PO DAILY 03/31/19 03/31/19 HYDROcodone/APAP 10-325MG [[place] 1 tab PO TID PRN 03/31/19 03/31/19 10-325] Intelence 200mg 200 mg PO BID 03/31/19 03/31/19 Levofloxacin [Levaquin] 500 mg PO DIRECTED 03/31/19 03/31/19 Mupirocin 2% Oint [Bactroban 2% 1 applic TOPICAL DAILY 03/31/19 03/31/19 Oint] Umeclidinium [place] [Incruse 1 puff INHALATION RT-DAILY 03/31/19 03/31/19 Ellipta] Previous Rx's Medication Instructions Recorded Doxycycline Monohydrate [Monodox] 100 mg PO Q12HR #20 cap 06/05/19 predniSONE 50 mg PO DAILY #5 tab 06/05/19 Allergies Allergy/AdvReac Type Severity Reaction Status Date / Time azithromycin Allergy Rash/Hives Verified 06/05/19 10:05 [From Zithromax Z-Simone] Sulfa (Sulfonamide Allergy Rash/Hives Verified 06/05/19 10:05 Antibiotics) Review of Systems ROS Statement: Those systems with pertinent positive or pertinent negative responses have been documented in the HPI. ROS Other: All systems not noted in ROS Statement are negative. Past Medical History Past Medical History: COPD, GERD/Reflux, Hypertension, Osteoarthritis (OA) Additional Past Medical History / Comment(s): HIV/AIDS(1990) back pain, neuropathy,sleep apnea History of Any Multi-Drug Resistant Organisms: None Reported Additional Past Surgical History / Comment(s): neck surgery, throat surgery Past Anesthesia/Blood Transfusion Reactions: No Reported Reaction Past Psychological History: Bipolar, Depression, Panic Disorder Smoking Status: Current every day smoker Past Alcohol Use History: Occasional Past Drug Use History: None Reported General Exam Limitations: no limitations General appearance: alert, in no apparent distress Head exam: Present: atraumatic, normocephalic, normal inspection Eye exam: Present: normal appearance, PERRL, EOMI. Absent: scleral icterus, conjunctival injection, periorbital swelling ENT exam: Present: normal exam, mucous membranes moist Neck exam: Present: normal inspection. Absent: tenderness, meningismus, lymphadenopathy Respiratory exam: Present: decreased breath sounds. Absent: normal lung sounds bilaterally, respiratory distress, wheezes, rales, rhonchi, stridor Cardiovascular Exam: Present: regular rate, normal rhythm, normal heart sounds. Absent: systolic murmur, diastolic murmur, rubs, gallop, clicks GI/Abdominal exam: Present: soft, normal bowel sounds. Absent: distended, tenderness, guarding, rebound, rigid Course Vital Signs 06/05/19 06/05/19 06/05/19 10:00 10:32 10:38 Temperature 97.7 F Pulse Rate 89 76 Respiratory 18 22 22 Rate Blood Pressure 151/79 133/86 O2 Sat by Pulse 94 L 92 L Oximetry 06/05/19 06/05/19 06/05/19 10:53 11:02 11:12 Temperature Pulse Rate 82 82 Respiratory 18 Rate Blood Pressure O2 Sat by Pulse Oximetry 06/05/19 11:47 Temperature Pulse Rate 72 Respiratory 16 Rate Blood Pressure 114/67 O2 Sat by Pulse 94 L Oximetry EKG Findings - EKG Comments: EKG Findings:: EKG performed at 10:38 sinus rhythm with first-degree AV block, rate of 76 HI 224 QRS 84 QT/QTC 382/429 Medical Decision Making - Medical Decision Making Chest x-ray shows no significant abnormality there is mild atelectasis, COPD changes. Lab work is essentially unremarkable this is reproducible chest wall pain. Patient's symptoms are not cardiac in nature. He will be discharged with follow-up with Dr. moncada return parameters were discussed. - Lab Data Result diagrams: 06/05/19 10:53 06/05/19 10:53 Lab Results 06/05/19 06/05/19 06/05/19 Range/Units 10:53 10:53 10:53 WBC 10.1 (3.8-10.6) k/uL RBC 5.19 (4.30-5.90) m/uL Hgb 15.8 (13.0-17.5) gm/dL Hct 46.7 (39.0-53.0) % MCV 90.0 (80.0-100.0) fL MCH 30.5 (25.0-35.0) pg MCHC 33.9 (31.0-37.0) g/dL RDW 13.2 (11.5-15.5) % Plt Count 222 (150-450) k/uL Neutrophils % 77 % Lymphocytes % 14 % Monocytes % 5 % Eosinophils % 2 % Basophils % 1 % Neutrophils # 7.8 H (1.3-7.7) k/uL Lymphocytes # 1.4 (1.0-4.8) k/uL Monocytes # 0.5 (0-1.0) k/uL Eosinophils # 0.2 (0-0.7) k/uL Basophils # 0.1 (0-0.2) k/uL PT 10.4 (9.0-12.0) sec INR 1.0 (<1.2) APTT 25.8 (22.0-30.0) sec D-Dimer 0.28 (<0.60) mg/L FEU Sodium 135 L (137-145) mmol/L Potassium 4.2 (3.5-5.1) mmol/L Chloride 101 (98-107) mmol/L Carbon Dioxide 25 (22-30) mmol/L Anion Gap 9 mmol/L BUN 18 (9-20) mg/dL Creatinine 1.07 (0.66-1.25) mg/dL Est GFR (CKD-EPI)AfAm >90 (>60 ml/min/1.73 sqM) Est GFR (CKD-EPI)NonAf 78 (>60 ml/min/1.73 sqM) Glucose 171 H (74-99) mg/dL Calcium 9.4 (8.4-10.2) mg/dL Total Bilirubin 0.4 (0.2-1.3) mg/dL AST 36 (17-59) U/L ALT 34 (4-49) U/L Alkaline Phosphatase 50 (38-126) U/L Troponin I (0.000-0.034) ng/mL NT-Pro-B Natriuret Pep pg/mL Total Protein 6.8 (6.3-8.2) g/dL Albumin 4.1 (3.5-5.0) g/dL 06/05/19 06/05/19 Range/Units 10:53 10:53 WBC (3.8-10.6) k/uL RBC (4.30-5.90) m/uL Hgb (13.0-17.5) gm/dL Hct (39.0-53.0) % MCV (80.0-100.0) fL MCH (25.0-35.0) pg MCHC (31.0-37.0) g/dL RDW (11.5-15.5) % Plt Count (150-450) k/uL Neutrophils % % Lymphocytes % % Monocytes % % Eosinophils % % Basophils % % Neutrophils # (1.3-7.7) k/uL Lymphocytes # (1.0-4.8) k/uL Monocytes # (0-1.0) k/uL Eosinophils # (0-0.7) k/uL Basophils # (0-0.2) k/uL PT (9.0-12.0) sec INR (<1.2) APTT (22.0-30.0) sec D-Dimer (<0.60) mg/L FEU Sodium (137-145) mmol/L Potassium (3.5-5.1) mmol/L Chloride (98-107) mmol/L Carbon Dioxide (22-30) mmol/L Anion Gap mmol/L BUN (9-20) mg/dL Creatinine (0.66-1.25) mg/dL Est GFR (CKD-EPI)AfAm (>60 ml/min/1.73 sqM) Est GFR (CKD-EPI)NonAf (>60 ml/min/1.73 sqM) Glucose (74-99) mg/dL Calcium (8.4-10.2) mg/dL Total Bilirubin (0.2-1.3) mg/dL AST (17-59) U/L ALT (4-49) U/L Alkaline Phosphatase (38-126) U/L Troponin I <0.012 (0.000-0.034) ng/mL NT-Pro-B Natriuret Pep 60 pg/mL Total Protein (6.3-8.2) g/dL Albumin (3.5-5.0) g/dL Disposition Clinical Impression: Chest wall pain, Acute exacerbation of chronic obstructive pulmonary disease (COPD) Disposition: HOME SELF-CARE Condition: Stable Instructions (If sedation given, give patient instructions): Chronic Bronchitis (ED) Additional Instructions: Please return to the Emergency Department if symptoms worsen or any other concerns. Prescriptions: Doxycycline Monohydrate [Monodox] 100 mg PO Q12HR #20 cap predniSONE 50 mg PO DAILY #5 tab Is patient prescribed a controlled substance at d/c from ED?: No Referrals: Daniela Rojo MD [Primary Care Provider] - 1-2 days Time of Disposition: 12:14
[2019-06-05 11:11] LABS: Basophils # (A) 0.1 k/uL (0-0.2); Basophils % (A) 1 %; Eosinophils # (A) 0.2 k/uL (0-0.7); Eosinophils % (A) 2 %; HCT 46.7 % (39.0-53.0); HGB 15.8 gm/dL (13.0-17.5); Lymphocytes # (A) 1.4 k/uL (1.0-4.8); Lymphocytes % (A) 14 %; MCH 30.5 pg (25.0-35.0); MCHC 33.9 g/dL (31.0-37.0); Mean Platelet Volume 6.7; Monocytes # (A) 0.5 k/uL (0-1.0); Monocytes % (A) 5 %; Neutrophils # (A) 7.8 k/uL (1.3-7.7); Neutrophils % (A) 77 %; Platelet Count 222 k/uL (150-450); RBC 5.19 m/uL (4.30-5.90); RDW 13.2 % (11.5-15.5); WBC 10.1 k/uL (3.8-10.6)
[2019-06-05 11:20] LABS: ALT 34 U/L (4-49); AST 36 U/L (17-59); African American GFR (CKD) >90 (>60 ml/min/1.73 sqM); Albumin 4.1 g/dL (3.5-5.0); Alkaline Phosphatase 50 U/L (38-126); Anion Gap 9 mmol/L; Blood Urea Nitrogen 18 mg/dL (9-20); Calcium 9.4 mg/dL (8.4-10.2); Carbon Dioxide 25 mmol/L (22-30); Chloride 101 mmol/L (98-107); Glucose 171 mg/dL (74-99); Non-African American GFR(CKD) 78 (>60 ml/min/1.73 sqM); Potassium 4.2 mmol/L (3.5-5.1); Sodium 135 mmol/L (137-145); Total Bilirubin 0.4 mg/dL (0.2-1.3); Total Protein 6.8 g/dL (6.3-8.2)
--- NOTE | 2019-06-05 11:31 | XR ---
EXAMINATION TYPE: XR chest 2V DATE OF EXAM: 06/05/2019 HISTORY: difficulty breathing. REFERENCE: Previous study dated 03/31/2019. FINDINGS: There is been a previous ACDF of the lower cervical spine. There is scarring or atelectasis at both lung bases. Lungs otherwise clear. Pleural spaces are clear. The heart is not enlarged. IMPRESSION: BIBASILAR ATELECTASIS VERSUS SCARRING.
[2019-06-05 11:42] LABS: D-Dimer 0.28 mg/L FEU (<0.60); Partial Thromboplastin Time 25.8 sec (22.0-30.0); Prothrombin Time 10.4 sec (9.0-12.0)
[2019-06-05] MEDS ORDERED: ACET/COD 300 MG/30 MG STARTER PACK 6 TAB BTL PO STA (12:14)
[2019-06-05 12:38] VITALS: BP 106/59; PULSE 74; RESP 18
== END 2019-06-05 12:38 | disposition home or self-care (01) ==
LOC: EC 09:58
DX: J44.1 Chronic obstructive pulmonary disease with (acute) exacerbation (principal); J98.11 Atelectasis; I10 Essential (primary) hypertension; B20 Human immunodeficiency virus [HIV] disease; F32.9 Major depressive disorder, single episode, unspecified; F41.0 Panic disorder [episodic paroxysmal anxiety]; F17.200 Nicotine dependence, unspecified, uncomplicated; Z79.890 Hormone replacement therapy; Z79.899 Other long term (current) drug therapy; Z88.1 Allergy status to other antibiotic agents; Z88.2 Allergy status to sulfonamides
CPT/HCPCS: 36415; 71046; 80053; 83880; 84484; 85025; 85379; 85610; 85730; 87040; 93005; 94640; 96360; 99285

== ENCOUNTER 2019-06-09 07:40 | Inpatient (IN) | payer MEDICARE, OTHER ==
[2019-06-09] MEDS ORDERED: IPRATROPIUM-ALBUTEROL 3 ML NEB INHALATION STA (07:59)
[2019-06-09] MEDS ORDERED: methylPREDNISolone SOD SUCCI 125 MG/2 ML VIAL IV STA (07:59)
[2019-06-09] MEDS ORDERED: KETOROLAC 30 MG/ML 1 ML VIAL IVP STA (08:00)
--- NOTE | 2019-06-09 08:03 | ED ---
SOB HPI - General Chief Complaint: Shortness of Breath Stated Complaint: COPD Time Seen by Provider: 06/09/19 07:48 Source: patient, RN notes reviewed Mode of arrival: ambulatory Limitations: no limitations - History of Present Illness Initial Comments: This is a 58-year-old male history of COPD who presents today with complaints of shortness of breath is gotten bad since last night exertional dyspnea and also some left-sided sharp chest pain. He states the pain is worse with movement and deep breathing. He points to his left lateral lower ribs. He is not coughing up any phlegm he denies any overt fevers chills or sweats at this time. No abdominal pain no other modifying factors other than he states it hurts to try to lay down. MD Complaint: shortness of breath, cough, chest pain - Related Data Home Medications Medication Instructions Recorded Confirmed Quinapril HCl [Accupril] 10 mg PO DAILY 05/31/16 06/09/19 Dolutegravir Sodium [Tivicay] 50 mg PO DAILY 09/01/18 06/09/19 Emtricitabine/Tenofov Alafenam 1 tab PO DAILY 09/01/18 06/09/19 [Descovy 200-25 mg Tablet] Gabapentin [Neurontin] 300 mg PO TID 09/01/18 06/09/19 Hydrochlorothiazide [Hydrodiuril] 25 mg PO DAILY 09/01/18 06/09/19 Levothyroxine Sodium [Synthroid] 25 mcg PO DAILY 09/01/18 06/09/19 buPROPion HCL [Wellbutrin XL] 300 mg PO DAILY 09/01/18 06/09/19 traZODone HCL 150 mg PO HS 09/01/18 06/09/19 Albuterol Inhaler [Ventolin Hfa 2 puff INHALATION RT-Q4H PRN 03/31/19 06/09/19 Inhaler] Baclofen [Lioresal] 10 mg PO HS 03/31/19 06/09/19 Citalopram Hydrobromide [CeleXA] 40 mg PO DAILY 03/31/19 06/09/19 Diltiazem HCl [Diltiazem ER] 360 mg PO DAILY 03/31/19 06/09/19 Intelence 200mg 200 mg PO BID 11/07/19 01/16/20 Mupirocin 2% Oint [Bactroban 2% 1 applic TOPICAL DAILY 03/31/19 06/09/19 Oint] Umeclidinium [place] [Incruse 1 puff INHALATION RT-DAILY 03/31/19 06/09/19 Ellipta] Acetaminophen-Codeine 300-30mg 1 tab PO Q6H PRN 06/09/19 06/09/19 [Tylenol w/codeine #3] Ipratropium [place] 0.06%Nasal 1 spray EA NOSTRIL BID 06/09/19 06/09/19 [Atrovent Nasal 0.06%] Previous Rx's Medication Instructions Recorded Doxycycline Monohydrate [Monodox] 100 mg PO Q12HR #20 cap 06/05/19 predniSONE 50 mg PO DAILY #5 tab 06/05/19 Allergies Allergy/AdvReac Type Severity Reaction Status Date / Time azithromycin Allergy Rash/Hives Verified 06/09/19 08:34 [From Zithromax Z-Simone] Sulfa (Sulfonamide Allergy Rash/Hives Verified 06/09/19 08:34 Antibiotics) Review of Systems ROS Statement: Those systems with pertinent positive or pertinent negative responses have been documented in the HPI. ROS Other: All systems not noted in ROS Statement are negative. Past Medical History Past Medical History: COPD, GERD/Reflux, Hypertension, Osteoarthritis (OA) Additional Past Medical History / Comment(s): HIV/AIDS(1990) back pain, neuropathy,sleep apnea History of Any Multi-Drug Resistant Organisms: None Reported Additional Past Surgical History / Comment(s): neck surgery, throat surgery Past Anesthesia/Blood Transfusion Reactions: No Reported Reaction Past Psychological History: Bipolar, Depression, Panic Disorder Smoking Status: Current every day smoker Past Alcohol Use History: Occasional Past Drug Use History: None Reported General Exam - General Exam Comments Initial Comments: This is a well-developed well-nourished awake alert oriented 3 male Limitations: no limitations General appearance: alert, anxious Head exam: Present: atraumatic, normocephalic, normal inspection Eye exam: Present: normal appearance, PERRL, EOMI. Absent: scleral icterus, conjunctival injection, periorbital swelling ENT exam: Present: mucous membranes dry Neck exam: Present: normal inspection. Absent: tenderness, meningismus, lymphadenopathy Respiratory exam: Present: wheezes (Occasional wheeze), chest wall tenderness (Some reproducibility to the pain in the left lateral ribs appears be intercostal muscle. No step-off or crepitation), decreased breath sounds. Absent: respiratory distress, rales, rhonchi, stridor Cardiovascular Exam: Present: normal rhythm, tachycardia, normal heart sounds. Absent: systolic murmur, diastolic murmur, rubs, gallop, clicks GI/Abdominal exam: Present: soft, normal bowel sounds. Absent: distended, tenderness, guarding, rebound, rigid Extremities exam: Present: normal inspection, full ROM, normal capillary refill. Absent: tenderness, pedal edema, joint swelling, calf tenderness Back exam: Present: normal inspection Neurological exam: Present: alert, oriented X3, CN II-XII intact Psychiatric exam: Present: normal affect, normal mood Skin exam: Present: warm, dry, intact, normal color. Absent: rash Course Vital Signs 06/09/19 06/09/19 06/09/19 07:44 08:02 08:18 Temperature 97.8 F Pulse Rate 104 H 101 H Respiratory 20 24 20 Rate Blood Pressure 137/92 O2 Sat by Pulse 91 L Oximetry Medical Decision Making - Medical Decision Making Patient persisted having exertional dyspnea and desaturation with exertion patient be admitted I discuss case with Dr. Rojo. - Lab Data Result diagrams: 06/09/19 08:00 06/09/19 08:00 Lab Results 06/09/19 06/09/19 06/09/19 Range/Units 08:00 08:00 08:00 WBC 20.1 H (3.8-10.6) k/uL RBC 5.45 (4.30-5.90) m/uL Hgb 16.7 (13.0-17.5) gm/dL Hct 49.3 (39.0-53.0) % MCV 90.4 (80.0-100.0) fL MCH 30.7 (25.0-35.0) pg MCHC 34.0 (31.0-37.0) g/dL RDW 13.3 (11.5-15.5) % Plt Count 287 (150-450) k/uL Neutrophils % 76 % Lymphocytes % 13 % Monocytes % 7 % Eosinophils % 2 % Basophils % 1 % Neutrophils # 15.2 H (1.3-7.7) k/uL Lymphocytes # 2.7 (1.0-4.8) k/uL Monocytes # 1.3 H (0-1.0) k/uL Eosinophils # 0.4 (0-0.7) k/uL Basophils # 0.2 (0-0.2) k/uL PT 10.1 (9.0-12.0) sec INR 1.0 (<1.2) APTT 23.7 (22.0-30.0) sec Sodium 136 L (137-145) mmol/L Potassium 4.1 (3.5-5.1) mmol/L Chloride 101 (98-107) mmol/L Carbon Dioxide 26 (22-30) mmol/L Anion Gap 9 mmol/L BUN 22 H (9-20) mg/dL Creatinine 0.93 (0.66-1.25) mg/dL Est GFR (CKD-EPI)AfAm >90 (>60 ml/min/1.73 sqM) Est GFR (CKD-EPI)NonAf >90 (>60 ml/min/1.73 sqM) Glucose 155 H (74-99) mg/dL Calcium 10.0 (8.4-10.2) mg/dL Magnesium 1.8 (1.6-2.3) mg/dL Total Bilirubin 0.5 (0.2-1.3) mg/dL AST 46 (17-59) U/L ALT 53 H (4-49) U/L Alkaline Phosphatase 49 (38-126) U/L Creatine Kinase 483 H (55-170) U/L Troponin I (0.000-0.034) ng/mL NT-Pro-B Natriuret Pep pg/mL Total Protein 7.5 (6.3-8.2) g/dL Albumin 4.5 (3.5-5.0) g/dL 06/09/19 06/09/19 Range/Units 08:00 08:00 WBC (3.8-10.6) k/uL RBC (4.30-5.90) m/uL Hgb (13.0-17.5) gm/dL Hct (39.0-53.0) % MCV (80.0-100.0) fL MCH (25.0-35.0) pg MCHC (31.0-37.0) g/dL RDW (11.5-15.5) % Plt Count (150-450) k/uL Neutrophils % % Lymphocytes % % Monocytes % % Eosinophils % % Basophils % % Neutrophils # (1.3-7.7) k/uL Lymphocytes # (1.0-4.8) k/uL Monocytes # (0-1.0) k/uL Eosinophils # (0-0.7) k/uL Basophils # (0-0.2) k/uL PT (9.0-12.0) sec INR (<1.2) APTT (22.0-30.0) sec Sodium (137-145) mmol/L Potassium (3.5-5.1) mmol/L Chloride (98-107) mmol/L Carbon Dioxide (22-30) mmol/L Anion Gap mmol/L BUN (9-20) mg/dL Creatinine (0.66-1.25) mg/dL Est GFR (CKD-EPI)AfAm (>60 ml/min/1.73 sqM) Est GFR (CKD-EPI)NonAf (>60 ml/min/1.73 sqM) Glucose (74-99) mg/dL Calcium (8.4-10.2) mg/dL Magnesium (1.6-2.3) mg/dL Total Bilirubin (0.2-1.3) mg/dL AST (17-59) U/L ALT (4-49) U/L Alkaline Phosphatase (38-126) U/L Creatine Kinase (55-170) U/L Troponin I <0.012 (0.000-0.034) ng/mL NT-Pro-B Natriuret Pep 102 pg/mL Total Protein (6.3-8.2) g/dL Albumin (3.5-5.0) g/dL - EKG Data -: EKG Interpreted by [facility] EKG shows normal: sinus rhythm (Sinus rhythm of 89. Interval 184 QRS 84 QT since QTC 336/[address]-T wave changes) - Radiology Data Radiology results: report reviewed (Imaging shows evidence of atelectasis no definitive infiltrate however.), image reviewed Disposition Clinical Impression: Acute exacerbation of chronic obstructive pulmonary disease (COPD) Disposition: ADMITTED IP TO THIS HOSP Condition: Fair Referrals: Daniela Rojo MD [Primary Care Provider] - 1-2 days
[2019-06-09 08:20] LABS: Basophils # (A) 0.2 k/uL (0-0.2); Basophils % (A) 1 %; Eosinophils # (A) 0.4 k/uL (0-0.7); Eosinophils % (A) 2 %; HCT 49.3 % (39.0-53.0); HGB 16.7 gm/dL (13.0-17.5); Lymphocytes # (A) 2.7 k/uL (1.0-4.8); Lymphocytes % (A) 13 %; MCH 30.7 pg (25.0-35.0); MCV 90.4 fL (80.0-100.0); Mean Platelet Volume 6.9; Monocytes # (A) 1.3 k/uL (0-1.0); Monocytes % (A) 7 %; Neutrophils # (A) 15.2 k/uL (1.3-7.7); Neutrophils % (A) 76 %; Platelet Count 287 k/uL (150-450); RBC 5.45 m/uL (4.30-5.90); RDW 13.3 % (11.5-15.5); WBC 20.1 k/uL (3.8-10.6)
[2019-06-09 08:23] LABS: ALT 53 U/L (4-49); AST 46 U/L (17-59); African American GFR (CKD) >90 (>60 ml/min/1.73 sqM); Albumin 4.5 g/dL (3.5-5.0); Alkaline Phosphatase 49 U/L (38-126); Anion Gap 9 mmol/L; Blood Urea Nitrogen 22 mg/dL (9-20); Carbon Dioxide 26 mmol/L (22-30); Chloride 101 mmol/L (98-107); Creatine Kinase 483 U/L (55-170); Glucose 155 mg/dL (74-99); Magnesium 1.8 mg/dL (1.6-2.3); Non-African American GFR(CKD) >90 (>60 ml/min/1.73 sqM); Potassium 4.1 mmol/L (3.5-5.1); Sodium 136 mmol/L (137-145); Total Bilirubin 0.5 mg/dL (0.2-1.3); Total Protein 7.5 g/dL (6.3-8.2)
[2019-06-09 08:39] LABS: Partial Thromboplastin Time 23.7 sec (22.0-30.0); Prothrombin Time 10.1 sec (9.0-12.0)
--- NOTE | 2019-06-09 09:09 | XR ---
EXAMINATION TYPE: XR chest 2V DATE OF EXAM: 06/09/2019 COMPARISON: 06/05/2019 HISTORY: Difficulty breathing and left-sided rib pain TECHNIQUE: Frontal and lateral views of the chest are obtained. FINDINGS: Linear bibasilar horizontally oriented platelike subsegmental atelectasis. Pulmonary hyperi nflation and biapical lucency of underlying COPD. With flattening of the diaphragms on the lateral vi ew and increased retrosternal airspace are also seen. There is no focal air space opacity, pleural e ffusion, or pneumothorax seen. The cardiac silhouette size is within normal limits. The osseous st ructures are grossly intact. Cervical fusion and mild multilevel degenerative change of the thoracic spine. IMPRESSION: Bibasilar subsegmental dependent atelectasis is noted on the prior. Underlying COPD. Rib series could be considered for focal left rib pain.
[2019-06-09] MEDS: IPRATROPIUM-ALBUTEROL 3 ML NEB INHALATION SCH ×4 (11:52→20:13)
[2019-06-09] MEDS: SODIUM CHLORIDE 0.9% 1,000 ML IV SCH (12:02)
[2019-06-09] MEDS: methylPREDNISolone SOD SUCCI 125 MG/2 ML VIAL IV SCH ×2 (12:23→17:38)
[2019-06-09] MEDS: INSULIN ASPART (NovoLOG) 100 UNIT/ML VIAL SQ SCH ×3 (13:29→21:21)
--- NOTE | 2019-06-09 14:03 | P.HPIM ---
History of Present Illness H&P Date: 06/09/19 Chief Complaint: Shortness of breath Patient is seen in the emergency department on 06/09/2019 for complaints of shortness of breath and left-sided chest pain. Patient states he was feeling well over the past week and was seen on Thursday [facility] emergency department and released home same day with prescriptions for doxycycline and prednisone. Patient states he has been coughing frequently over the last few days. Patient denies any fever or chills, patient denies nausea vomiting diarrhea. Patient describes chest pain at the left lateral lower chest wall. P atient states he is unable to sleep lying down due to chest pain and shortness of breath. Patient describes pain as occurring with coughing, increased pain with laying on left side, states pain does not radiate anywhere. Patient denies any substernal chest pain, denies any pain radiating to either arm. Patient states he has not tried any other remedies at home for symptom relief. Patient is seen to have an elevated WBC count at 20.1. Patient has a known history of HIV and states that his most recent CD4 levels are greater than 800. Patient has history of COPD, GERD, hypertension, OA, HIV, neuropathy, sleep apnea. Patient is currently on 2 L nasal cannula in the emergency department, w ith oxygen saturation 90-91%. Chest x-ray completed revealing bibasilar subsegmental Dependent Atelectasis with Underlying COPD. Will consult pulmonology, will consult infectious disease for HIV management. Plans will be ordered. Sputum culture ordered. At this time patient is having some shortness of breath intermittent chest pain when laying on left side or with coughing. Patient denies any nausea vomiting or diarrhea. Patient denies any urinary burning or frequency. Review of Systems Please see HPI otherwise unremarkable Past Medical History Past Medical History: COPD, GERD/Reflux, Hypertension, Osteoarthritis (OA) Additional Past Medical History / Comment(s): HIV/AIDS(1990) back pain, ne uropathy,sleep apnea History of Any Multi-Drug Resistant Organisms: None Reported Additional Past Surgical History / Comment(s): neck surgery, throat surgery Past Anesthesia/Blood Transfusion Reactions: No Reported Reaction Past Psychological History: Bipolar, Depression, Panic Disorder Smoking Status: Current every day smoker Past Alcohol Use History: Occasional Past Drug Use History: None Reported - Past Family History Brother(s) Family Medical History: Diabetes Mellitus Father Family Medical History: Cancer Additional Family Medical History / Comment(s): Father of throat cancer. Mother Additional Family Medical History / Comment(s): Mother of a ruptured brain aneurysm. Medications and Allergies Home Medications Medication Instructions Recorded Confirmed Type Quinapril HCl [Accupril] 10 mg PO DAILY 05/31/16 06/09/19 History Dolutegravir Sodium [Tivicay] 50 mg PO DAILY 09/01/18 06/09/19 History Emtricitabine/Tenofov Alafenam 1 tab PO DAILY 09/01/18 06/09/19 History [Descovy 200-25 mg Tablet] Gabapentin [Neurontin] 300 mg PO TID 09/01/18 06/09/19 History Hydrochlorothiazide [Hydrodiuril] 25 mg PO DAILY 09/01/18 06/09/19 History Levothyroxine Sodium [Synthroid] 25 mcg PO DAILY 09/01/18 06/09/19 History buPROPion HCL [Wellbutrin XL] 300 mg PO DAILY 09/01/18 06/09/19 History traZODone HCL 150 mg PO HS 09/01/18 06/09/19 History Albuterol Inhaler [Ventolin Hfa 2 puff INHALATION RT-Q4H PRN 03/31/19 06/09/19 History Inhaler] Baclofen [Lioresal] 10 mg PO HS 03/31/19 06/09/19 History Citalopram Hydrobromide [CeleXA] 40 mg PO DAILY 03/31/19 06/09/19 History Diltiazem HCl [Diltiazem ER] 360 mg PO DAILY 03/31/19 06/09/19 History Intelence 200mg 200 mg PO BID 03/31/19 06/09/19 History Mupirocin 2% Oint [Bactroban 2% 1 applic TOPICAL DAILY 03/31/19 06/09/19 History Oint] Umeclidinium [place] [Incruse 1 puff INHALATION RT-DAILY 03/31/19 06/09/19 History Ellipta] Doxycycline Monohydrate [Monodox] 100 mg PO Q12HR #20 cap 06/05/19 06/09/19 Rx predniSONE 50 mg PO DAILY #5 tab 06/05/19 06/09/19 Rx Acetaminophen-Codeine 300-30mg 1 tab PO Q6H PRN 06/09/19 06/09/19 History [Tylenol w/codeine #3] Ipratropium [place] 0.06%Nasal 1 spray EA NOSTRIL BID 06/09/19 06/09/19 History [Atrovent Nasal 0.06%] Allergies Allergy/AdvReac Type Severity Reaction Status Date / Time azithromycin Allergy Rash/Hives Verified 06/09/19 08:34 [From Zithromax Z-Simone] Sulfa (Sulfonamide Allergy Rash/Hives Verified 06/09/19 08:34 Antibiotics) Physical Exam Vitals: Vital Signs Temp Pulse Resp BP Pulse Ox 06/09/19 08:18 101 H 20 06/09/19 08:02 24 06/09/19 07:44 97.8 F 104 H 20 137/92 91 L Intake and Output 06/08/19 06/09/19 06/09/19 22:59 06:59 14:59 Other: Weight 113.398 kg Head normocephalic Neck supple Lungs diminished in bilateral bases, no wheezing or rales Heart regular rate and rhythm S1-S2, no rub or gallop Abdomen is soft nontender nondistended positive bowel sounds no hepato splenomegaly Extremities no edema Neuro alert and orientated to 3 Results CBC & Chem 7: 06/09/19 08:00 06/09/19 08:00 Labs: Abnormal Lab Results - Last 24 Hours (Table) 06/09/19 06/09/19 Range/Units 08:00 08:00 WBC 20.1 H (3.8-10.6) k/uL Neutrophils # 15.2 H (1.3-7.7) k/uL Monocytes # 1.3 H (0-1.0) k/uL Sodium 136 L (137-145) mmol/L BUN 22 H (9-20) mg/dL Glucose 155 H (74-99) mg/dL ALT 53 H (4-49) U/L Creatine Kinase 483 H (55-170) U/L Assessment and Plan Assessment: 1. Dyspnea related to COPD exacerbation. We'll continue with IV steroids and antibiotics. Pulmonology consultation. We'll rule out influenza. 2. Acute purulent tracheobronchitis. Patient maintained on doxycycline infectious disease will be consulted sputum culture has been ordered 3. History of HIV. Patient taking antivirals, will continue home medication. Will consult infectious disease for management. Patient states most recent CD4 level greater than 800. 4. Chest discomfort likely pleuritic. Serial troponins ordered. D-dimer order ed. Cardiology consult placed cardiac telemetry monitoring 5. History of GERD 6. History of hypertension. Will continue home medications 7. History of nicotine dependence. Patient declined nicotine patch. 8. History of sleep apnea DVT prophylaxis heparin. GI prophylaxis pepcid. Pulmonary, cardiology and infectious disease consulted Continue Solu-Medrol and doxycycline D-dimer, serial troponins and sputum culture ordered
[2019-06-09] MEDS ORDERED: HYDROCHLOROTHIAZIDE 25 MG TAB PO ONE (14:15)
[2019-06-09] MEDS: Acetaminophen-Codeine 300-30mg TAB PO PRN ×2 (14:18→21:20)
[2019-06-09] MEDS: GABAPENTIN 300 MG CAP PO SCH ×2 (14:18→21:22)
[2019-06-09] MEDS ORDERED: RX INFO: IV CONTRAST WAS GIVEN 1 EACH MISC MISCELLANE PRN (15:19)
[2019-06-09 17:08] LABS: Glucose,Whole Blood 214 mg/dL (75-99)
--- NOTE | 2019-06-09 17:31 | CT ---
EXAMINATION TYPE: CT angio chest with contrast and with 3-D reconstruction renderings DATE OF EXAM: 06/09/2019 4:51 PM COMPARISON: Chest radiograph 06/09/2019 HISTORY: Difficulty breathing especially laying down. CT DLP: 836.9 mGycm Automated exposure control for dose reduction was used. CONTRAST: CTA scan of the thorax is performed with IV Contrast, patient injected with 100 mL of Isovu e 370, pulmonary embolism protocol. Three-D reconstructions. FINDINGS: Limitation: There is moderate breathing motion artifact, obscuring detail to a moderate degree. LUNGS AND PLEURAL SPACES: Airways are patent and there is no bronchiectasis. There are widespread prominent emphysematous changes. The bibasilar segmental atelectasis pattern seen on the radiographs is demonstrated on the present st udy as well. There is no pulmonary edema. No pneumothorax or pleural effusion. MEDIASTINUM: There is only mild-moderate enhancement of the pulmonary artery and its branches, and th e breathing motion artifact also limits evaluation. While the study is negative for central or lobar pulmonary emboli, there is a candidate for tiny filling defect within the anterior lobar branch of th e right lower lobe pulmonary artery, seen on axial image 87-90 of 165. The finding is suspicious for tiny nonocclusive pulmonary embolism, but the motion artifact severely limits specificity of this fin ding. The remainder of the segmental branches cannot be well-visualized at all and, therefore, exclusion of segmental pulmonary emboli is not possible at this time. Suggest correlation with pretest clinical probability. There are moderate-marked multifocal coronary calcifications. There is no cardiomegaly or pericardial effusion. No mediastinal or hilar adenopathy. SKELETAL STRUCTURES: No focal findings. Specifically, no CT correlate for focal left rib pain. OTHER: No additional significant abnormality is seen. IMPRESSION: NEGATIVE FOR CENTRAL PULMONARY EMBOLI - BUT PULMONARY ARTERIAL FINDINGS DETAILED ABOVE. Results called to the floor by certified ophthalmic technologist at 5:27 PM.
[2019-06-09] MEDS ORDERED: HEPARIN SODIUM,PORCINE 5,000 UNIT/ML 1 ML VIAL IV PRN (18:13)
--- NOTE | 2019-06-09 18:46 | P.CNPUL ---
History of Present Illness Consult date: 06/09/19 Reason for consult: dyspnea Chief complaint: Dyspnea, left sided sharp chest pain History of present illness: 58-year-old white male patient with history of COPD normally oxygen dependent, hypertension, current smoker, bipolar, depression, HIV well treated, neuropathy and sleep apnea. Patient presented to the emergency department on 06/09/2019 complaints of worsening shortness of breath and sharp left-sided chest pain. Patient was seen in the emergency department over the weekend on Thursday where he was seen for complaints of cough, congestion and shortness of breath. He had been sick for a period of over 1 week, he did see his PCP last week and was not given any medication, patient was also complaining of left lower rib pain which was worse with deep inspiration, patient was placed on doxycycline and predn isone, and discharged home, however his left-sided chest pain Getting worse and patient came into the emergency department for reevaluation 06/09/2019. Chest x-ray showed bibasilar subsegmental dependent atelectasis, underlying COPD. admission blood work showed a white blood cell count of 20.1, hemoglobin of 16.7, electrolytes were unremarkable, B1 is 22 creatinine was 0.93, troponins were negative 2 at less than 0.012, proBNP was 102, influenza screen was negative. D-dimer was 0.34. Patient is short of breath, and his pulse ox is 89-91%, afebrile. His lungs are diminished, but not significantly bronchospastic or congested, patient was continued on doxycycline, breathing treatments, Mucinex, and IV steroids and admitted for further management. He is receiving pain medications for pain control Review of Systems All systems: negative Constitutional: Denies chills, Denies fever Eyes: denies blurred vision, denies pain Ears, nose, mouth and throat: Denies headache, Denies sore throat Cardiovascular: Reports chest pain, Reports edema, Denies shortness of breath Respiratory: Reports dyspnea, Denies cough Gastrointestinal: Denies abdominal pain, Denies diarrhea, Denies nausea, Denies vomiting Musculoskeletal: Denies myalgias Integumentary: Denies pruritus, Denies rash Neurological: Denies numbness, Denies weakness Psychiatric: Denies anxiety, Denies depression Endocrine: Denies fatigue, Denies weight change Past Medical History Past Medical History: COPD, GERD/Reflux, Hypertension, Osteoarthritis (OA) Additional Past Medical History / Comment(s): HIV/AIDS(1990) back pain, neuropathy,sleep apnea History of Any Multi-Drug Resistant Organisms: None Reported Additional Past Surgical History / Comment(s): neck surgery, throat surgery Past Anesthesia/Blood Transfusion Reactions: No Reported Reaction Past Psychological History: Bipolar, Depression, Panic Disorder Smoking Status: Current every day smoker Past Alcohol Use History: Occasional Past Drug Use History: None Reported - Past Family History Brother(s) Family Medical History: Diabetes Mellitus Father Family Medical History: Cancer Additional Family Medical History / Comment(s): Father of throat cancer. Mother Additional Family Medical History / Comment(s): Mother of a ruptured brain aneurysm. Medications and Allergies Home Medications Medication Instructions Recorded Confirmed Type Quinapril HCl [Accupril] 10 mg PO DAILY 05/31/16 06/09/19 History Dolutegravir Sodium [Tivicay] 50 mg PO DAILY 09/01/18 06/09/19 History Emtricitabine/Tenofov Alafenam 1 tab PO DAILY 09/01/18 06/09/19 History [Descovy 200-25 mg Tablet] Gabapentin [Neurontin] 300 mg PO TID 09/01/18 06/09/19 History Hydrochlorothiazide [Hydrodiuril] 25 mg PO DAILY 09/01/18 06/09/19 History Levothyroxine Sodium [Synthroid] 25 mcg PO DAILY 09/01/18 06/09/19 History buPROPion HCL [Wellbutrin XL] 300 mg PO DAILY 09/01/18 06/09/19 History traZODone HCL 150 mg PO HS 09/01/18 06/09/19 History Albuterol Inhaler [Ventolin Hfa 2 puff INHALATION RT-Q4H PRN 03/31/19 06/09/19 History Inhaler] Baclofen [Lioresal] 10 mg PO HS 03/31/19 06/09/19 History Citalopram Hydrobromide [CeleXA] 40 mg PO DAILY 03/31/19 06/09/19 History Diltiazem HCl [Diltiazem ER] 360 mg PO DAILY 03/31/19 06/09/19 History Intelence 200mg 200 mg PO BID 03/31/19 06/09/19 History Mupirocin 2% Oint [Bactroban 2% 1 applic TOPICAL DAILY 03/31/19 06/09/19 History Oint] Umeclidinium [place] [Incruse 1 puff INHALATION RT-DAILY 03/31/19 06/09/19 History Ellipta] Doxycycline Monohydrate [Monodox] 100 mg PO Q12HR #20 cap 06/05/19 06/09/19 Rx predniSONE 50 mg PO DAILY #5 tab 06/05/19 06/09/19 Rx Acetaminophen-Codeine 300-30mg 1 tab PO Q6H PRN 06/09/19 06/09/19 History [Tylenol w/codeine #3] Ipratropium [place] 0.06%Nasal 1 spray EA NOSTRIL BID 06/09/19 06/09/19 History [Atrovent Nasal 0.06%] Allergies Allergy/AdvReac Type Severity Reaction Status Date / Time azithromycin Allergy Rash/Hives Verified 06/09/19 08:34 [From Zithromax Z-Simone] Sulfa (Sulfonamide Allergy Rash/Hives Verified 06/09/19 08:34 Antibiotics) Physical Exam Vitals: Vital Signs Temp Pulse Pulse Resp BP BP Pulse Ox 06/09/19 13:53 94 L 06/09/19 12:35 98.0 F 86 20 139/78 89 L 06/09/19 12:21 76 16 132/74 99 06/09/19 08:18 101 H 20 06/09/19 08:02 24 06/09/19 07:44 97.8 F 104 H 20 137/92 91 L Intake and Output 06/09/19 06/09/19 06/09/19 06:59 14:59 22:59 Intake Total 580 Balance 580 Intake: Oral 580 Other: Voiding Method Toilet # Voids 1 Weight 113.398 kg GENERAL EXAM: Alert, very pleasant, 58-year-old short statured white male on 2 L of oxygen with a pulse ox of 89-91%, tachypneic, but no apparent distress. HEAD: Normocephalic/atraumatic. EYES: Normal reaction of pupils, equal size. Conjunctiva pink, sclera white. NOSE: Clear with pink turbinates. THROAT: No erythema or exudates. NECK: No masses, no JVD, no thyroid enlargement, no adenopathy. CHEST: No chest wall deformity. Symmetrical expansion. LUNGS: diminished air entry with no crackles, wheeze, rhonchi or dullness. CVS: Regular rate and rhythm, normal S1 and S2, no gallops, no murmurs, no rubs ABDOMEN: Soft, nontender. No hepatosplenomegaly, normal bowel sounds, no guar ding or rigidity. EXTREMITIES: No clubbing, mild pretibial and ankle edema, no cyanosis, 2+ pulses and upper and lower extremities. MUSCULOSKELETAL: Muscle strength and tone normal. SPINE: No scoliosis or deformity SKIN: No rashes CENTRAL NERVOUS SYSTEM: Alert and oriented -3. No focal deficits, tone is normal in all 4 extremities. PSYCHIATRIC: Alert and oriented -3. Appropriate affect. Intact judgment and insight. Results - Laboratory Findings CBC and BMP: 06/09/19 08:00 06/09/19 08:00 PT/INR, D-dimer PT 10.1 sec (9.0-12.0) 06/09/19 08:00 INR 1.0 (<1.2) 06/09/19 08:00 D-Dimer 0.34 mg/L FEU (<0.60) 06/09/19 15:08 Abnormal lab findings: Abnormal Labs 06/09/19 06/09/19 06/09/19 08:00 08:00 17:02 WBC 20.1 H Neutrophils # 15.2 H Monocytes # 1.3 H Sodium 136 L BUN 22 H Glucose 155 H POC Glucose (mg/dL) 214 H ALT 53 H Creatine Kinase 483 H - Diagnostic Findings Chest x-ray: report reviewed, image reviewed CT scan - chest: report reviewed, image reviewed Assessment and Plan Plan: Assessment: #1. Acute dyspnea and acute hypoxemic respiratory failure related to acute COPD exacerbation complicated by purulent tracheobronchitis and bibasilar subsegmental dependent atelectasis #2. History of HIV, on anti-viral with adequate CD4 counts #3. Pleuritic chest pain in the left side, d-dimer is negative, 2 sets of cardiac troponins are negative at less than 0.012 #4. History of GERD #5. History of hypertension #6. COPD not oxygen dependent at baseline #7. History of chronic and ongoing nicotine dependence #8. History of sleep apnea #9. Bipolar disorder Plan: CTA chest has been reviewed, no central pulmonary embolisms, however tiny filling defects within the segmental branches could not be excluded but given the negative d-dimer possibility of pulmonary embolism is unlikely. We'll treat the patient for acute COPD exacerbation, continue current antibiotics, IV steroids and nebulized bronchodilators. Treat patient's pleuritic chest pain, 2 sets of troponins have been negative. Chest x-ray has been reviewed showing bibasilar subsegmental dependent atelectasis. We'll continue to follow I performed a history & physical examination of the patient and discussed their management with my nurse practitioner, Angela Barksdale. I reviewed the nurse practitioner's note and agree with the documented findings and plan of care. Lung sounds are positive for diminished breath sounds. The findings and the impression was discussed with the patient. I attest to the documentation by the nurse practitioner. Time with Patient: Greater than 30
[2019-06-09 19:25] LABS: Basophils % (A) 0 %; Eosinophils # (A) 0.1 k/uL (0-0.7); Eosinophils % (A) 0 %; HCT 49.2 % (39.0-53.0); HGB 16.7 gm/dL (13.0-17.5); Lymphocytes # (A) 0.6 k/uL (1.0-4.8); Lymphocytes % (A) 4 %; MCH 31.1 pg (25.0-35.0); MCV 91.4 fL (80.0-100.0); Mean Platelet Volume 6.6; Monocytes # (A) 0.2 k/uL (0-1.0); Monocytes % (A) 2 %; Neutrophils # (A) 13.6 k/uL (1.3-7.7); Neutrophils % (A) 94 %; Platelet Count 287 k/uL (150-450); RBC 5.38 m/uL (4.30-5.90); RDW 13.1 % (11.5-15.5); WBC 14.5 k/uL (3.8-10.6)
[2019-06-09] MEDS: SYMBICORT 160-4.5 MCG INHALER INHALATION SCH (20:13)
[2019-06-09] MEDS: HEPARIN SODIUM,PORCINE 5,000 UNIT/ML 1 ML VIAL SQ SCH (21:02)
[2019-06-09] MEDS: INTELENCE 200 MG PO SCH (21:03)
[2019-06-09 21:05] LABS: Glucose,Whole Blood 226 mg/dL (75-99)
[2019-06-09 21:15] LABS: Partial Thromboplastin Time 23.9 sec (22.0-30.0); Prothrombin Time 10.3 sec (9.0-12.0)
[2019-06-09] MEDS: DOXYCYCLINE 100 MG CAP PO SCH (21:21)
[2019-06-09] MEDS: BACLOFEN 10 MG TAB PO SCH (21:22)
[2019-06-09] MEDS: traZODone HCL 50 MG TAB PO SCH (21:22)
[2019-06-09] MEDS: HEPARIN SOD,PORK IN 0.45% NACL 25,000 UNIT in 0.45% NACL 1 250ML.BAG IV SCH (21:38)
--- NOTE | 2019-06-09 22:56 | P.CONS ---
History of Present Illness - Reason for Consult Consult date: 06/09/19 HIV Requesting physician: Daniela Rojo - Chief Complaint left sided chest pain x few days - History of Present Illness Patient is a 58-year male past medical history significant for COPD also with a history of HIV for the patient follow-up with an ID physician [facility] and is currently on combination of antiretroviral therapy patient mentioned that his HIV viral load is nondetectable and his CD4 count around 850, patient presenting to [facility] ER with chief complaints of left-sided chest pain, apparently the patient presented to the ER on Thursday with complaints of cough congestion and left-sided chest pain patient at that time was told po ssibly blood per muscle and subsequently discharged home however the patient now presented with worsening pain to the left side of the chest described the pain to be sharp almost 10 of 10 in severity with no radiation with associated nausea no vomiting with the symptom had the patient was evaluated by the ER physician on arrival to the ER patient has been afebrile patient did have elevated white c ount 20,000 her repeat is [address] patient did [address] a [address] angiogram suspicious for PE patient has been started on Heparin pulmonary is on the case infectious disease has been consulted for management of his HIV while he is admitted to the hospital. Review of Systems Positive point has been mentioned in HPI rest of the systems are negative Past Medical History Past Medical History: COPD, GERD/Reflux, Hypertension, Osteoarthritis (OA) Additional Past Medical History / Comment(s): HIV/AIDS(1990) back pain, art ropathy,sleep apnea History of Any Multi-Drug Resistant Organisms: None Reported Additional Past Surgical History / Comment(s): neck surgery, throat surgery Past Anesthesia/Blood Transfusion Reactions: No Reported Reaction Past Psychological History: Bipolar, Depression, Panic Disorder Smoking Status: Current every day smoker Past Alcohol Use History: Occasional Past Drug Use History: None Reported - Past Family History Brother(s) Family Medical History: Diabetes Mellitus Father Family Medical History: Cancer Additional Family Medical History / Comment(s): Father of throat cancer. Mother Additional Family Medical History / Comment(s): Mother of a ruptured brain aneurysm. Medications and Allergies Home Medications Medication Instructions Recorded Confirmed Type Quinapril HCl [Accupril] 10 mg PO DAILY 05/31/16 06/09/19 History Dolutegravir Sodium [Tivicay] 50 mg PO DAILY 09/01/18 06/09/19 History Emtricitabine/Tenofov Alafenam 1 tab PO DAILY 09/01/18 06/09/19 History [Descovy 200-25 mg Tablet] Gabapentin [Neurontin] 300 mg PO TID 09/01/18 06/09/19 History Hydrochlorothiazide [Hydrodiuril] 25 mg PO DAILY 09/01/18 06/09/19 History Levothyroxine Sodium [Synthroid] 25 mcg PO DAILY 09/01/18 06/09/19 History buPROPion HCL [Wellbutrin XL] 300 mg PO DAILY 09/01/18 06/09/19 History traZODone HCL 150 mg PO HS 09/01/18 06/09/19 History Albuterol Inhaler [Ventolin Hfa 2 puff INHALATION RT-Q4H PRN 03/31/19 06/09/19 History Inhaler] Baclofen [Lioresal] 10 mg PO HS 03/31/19 06/09/19 History Citalopram Hydrobromide [CeleXA] 40 mg PO DAILY 03/31/19 06/09/19 History Diltiazem HCl [Diltiazem ER] 360 mg PO DAILY 03/31/19 06/09/19 History Intelence 200mg 200 mg PO BID 03/31/19 06/09/19 History Mupirocin 2% Oint [Bactroban 2% 1 applic TOPICAL DAILY 03/31/19 06/09/19 History Oint] Umeclidinium Kerens [Incruse 1 puff INHALATION RT-DAILY 03/31/19 06/09/19 History Ellipta] Doxycycline Monohydrate [Monodox] 100 mg PO Q12HR #20 cap 06/05/19 06/09/19 Rx predniSONE 50 mg PO DAILY #5 tab 06/05/19 06/09/19 Rx Acetaminophen-Codeine 300-30mg 1 tab PO Q6H PRN 06/09/19 06/09/19 History [Tylenol w/codeine #3] Ipratropium Kerens 0.06%Nasal 1 spray EA NOSTRIL BID 06/09/19 06/09/19 History [Atrovent Nasal 0.06%] Allergies Allergy/AdvReac Type Severity Reaction Status Date / Time azithromycin Allergy Rash/Hives Verified 06/09/19 08:34 [From Zithromax Z-Simone] Sulfa (Sulfonamide Allergy Rash/Hives Verified 06/09/19 08:34 Antibiotics) Physical Exam Vitals: Vital Signs Temp Pulse Pulse Resp BP BP Pulse Ox 06/09/19 20:24 80 06/09/19 20:13 82 06/09/19 20:00 85 18 06/09/19 13:53 94 L 06/09/19 12:35 98.0 F 86 20 139/78 89 L 06/09/19 12:21 76 16 132/74 99 06/09/19 08:18 101 H 20 06/09/19 08:02 24 06/09/19 07:44 97.8 F 104 H 20 137/92 91 L Intake and Output 06/09/19 06/09/19 06/09/19 06:59 14:59 22:59 Intake Total 820 Balance 820 Intake: Oral 820 Other: Voiding Method Toilet # Voids 1 Weight 113.398 kg 114 kg GENERAL DESCRIPTION: Middle-aged male lying in bed, no distress. No tachypnea or accessory muscle of respiration use. HEENT: Shows Pallor , no scleral icterus. Oral mucous membrane is dry. NECK: Trachea central, no thyromegaly. LUNGS: Unlabored breathing. Decreased breath sounds at the base. No wheeze or crackle. HEART: S1, S2, regular rate and rhythm. ABDOMEN: Soft, no tenderness , guarding or rigidity EXTREMITIES: No edema of feet. SKIN: No rash, no masses palpable. NEUROLOGICAL: The patient is awake, alert, oriented x3, mood and affect normal. Results CBC & Chem 7: 06/09/19 19:05 06/09/19 08:00 Labs: Abnormal Lab Results - Last 24 Hours (Table) 06/09/19 06/09/19 06/09/19 Range/Units 08:00 08:00 17:02 WBC 20.1 H (3.8-10.6) k/uL Neutrophils # 15.2 H (1.3-7.7) k/uL Lymphocytes # (1.0-4.8) k/uL Monocytes # 1.3 H (0-1.0) k/uL Sodium 136 L (137-145) mmol/L BUN 22 H (9-20) mg/dL Glucose 155 H (74-99) mg/dL POC Glucose (mg/dL) 214 H (75-99) mg/dL ALT 53 H (4-49) U/L Creatine Kinase 483 H (55-170) U/L 06/09/19 06/09/19 Range/Units 19:05 21:04 WBC 14.5 H (3.8-10.6) k/uL Neutrophils # 13.6 H (1.3-7.7) k/uL Lymphocytes # 0.6 L (1.0-4.8) k/uL Monocytes # (0-1.0) k/uL Sodium (137-145) mmol/L BUN (9-20) mg/dL Glucose (74-99) mg/dL POC Glucose (mg/dL) 226 H (75-99) mg/dL ALT (4-49) U/L Creatine Kinase (55-170) U/L Assessment and Plan Assessment: 1-patient with HIV in this patient according to history very well controlled as the patient HIV is undetectable and CD4 count is around 850 patient is currently on combination of Descovy ,Tivicay and Intelence 2-patient with acute left-sided chest pain likely secondary PE clinically not behaving as pneumonia 3-elevated white count possibly pulmonary infarct/PE (1) HIV (human immunodeficiency virus infection) Current Visit: Yes Status: Acute Code(s): B20 - HUMAN IMMUNODEFICIENCY VIRUS [HIV] DISEASE SNOMED Code(s): 86321092 (2) Pulmonary emboli Current Visit: Yes Status: Acute Code(s): I26.99 - OTHER PULMONARY EMBOLISM WITHOUT ACUTE COR PULMONALE SNOMED Code(s): 33432282 Plan: 1-we will continue the patient on his antiretroviral medication in the form of Descovy, Tivicay and Intelence 2-management of underlying PE per pulmonary 3-no evidence of secondary bacterial infection hold on any systemic antibiotic therapy We will follow on clinical condition and cultures to further adjust medication if needed Thank you for this consultation we will follow the patient along with you Time with Patient: Greater than 30
[2019-06-10] MEDS: methylPREDNISolone SOD SUCCI 125 MG/2 ML VIAL IV SCH ×3 (00:18→11:48)
[2019-06-10] MEDS: IPRATROPIUM-ALBUTEROL 3 ML NEB INHALATION SCH ×6 (00:28→19:47)
[2019-06-10] MEDS: Acetaminophen-Codeine 300-30mg TAB PO PRN ×3 (03:48→15:27)
[2019-06-10] MEDS: HEPARIN SOD,PORK IN 0.45% NACL 25,000 UNIT in 0.45% NACL 1 250ML.BAG IV SCH ×2 (05:45→08:31)
[2019-06-10] MEDS: LEVOTHYROXINE 25 MCG TAB PO SCH (05:46)
[2019-06-10 06:22] LABS: Basophils # (A) 0.1 k/uL (0-0.2); Basophils % (A) 0 %; Eosinophils % (A) 0 %; HCT 50.2 % (39.0-53.0); HGB 16.5 gm/dL (13.0-17.5); Lymphocytes # (A) 0.9 k/uL (1.0-4.8); Lymphocytes % (A) 4 %; MCHC 32.9 g/dL (31.0-37.0); MCV 91.4 fL (80.0-100.0); Mean Platelet Volume 6.9; Monocytes # (A) 0.6 k/uL (0-1.0); Monocytes % (A) 3 %; Neutrophils # (A) 20.8 k/uL (1.3-7.7); Neutrophils % (A) 93 %; Platelet Count 303 k/uL (150-450); RBC 5.49 m/uL (4.30-5.90); RDW 13.3 % (11.5-15.5); WBC 22.4 k/uL (3.8-10.6)
[2019-06-10 06:57] LABS: ALT 48 U/L (4-49); AST 44 U/L (17-59); African American GFR (CKD) >90 (>60 ml/min/1.73 sqM); Albumin 4.5 g/dL (3.5-5.0); Alkaline Phosphatase 58 U/L (38-126); Anion Gap 15 mmol/L; Blood Urea Nitrogen 25 mg/dL (9-20); Calcium 9.7 mg/dL (8.4-10.2); Carbon Dioxide 22 mmol/L (22-30); Chloride 99 mmol/L (98-107); Glucose 180 mg/dL (74-99); Non-African American GFR(CKD) >90 (>60 ml/min/1.73 sqM); Potassium 4.2 mmol/L (3.5-5.1); Sodium 136 mmol/L (137-145); Total Bilirubin 0.6 mg/dL (0.2-1.3); Total Protein 7.4 g/dL (6.3-8.2)
[2019-06-10 07:24] LABS: Glucose,Whole Blood 169 mg/dL (75-99)
[2019-06-10] MEDS: INSULIN ASPART (NovoLOG) 100 UNIT/ML VIAL SQ SCH ×4 (07:34→21:26)
[2019-06-10] MEDS: DOXYCYCLINE 100 MG CAP PO SCH ×2 (07:35→21:36)
[2019-06-10] MEDS: buPROPion XL 300 MG TAB.ER.24H PO SCH (07:36)
[2019-06-10] MEDS: GABAPENTIN 300 MG CAP PO SCH ×3 (07:36→21:24)
[2019-06-10] MEDS: CITALOPRAM HYDROBROMIDE 20 MG TAB PO SCH (07:36)
[2019-06-10] MEDS: DILTIAZEM CD 180 MG CAP.ER.24H PO SCH (07:36)
[2019-06-10] MEDS: FAMOTIDINE 20 MG TAB PO SCH (07:36)
[2019-06-10] MEDS: HYDROCHLOROTHIAZIDE 25 MG TAB PO SCH (07:36)
[2019-06-10] MEDS: HEPARIN SODIUM,PORCINE 5,000 UNIT/ML 1 ML VIAL SQ SCH ×2 (07:36→21:26)
[2019-06-10] MEDS: LISINOPRIL 10 MG TAB PO SCH (07:36)
[2019-06-10] MEDS: INTELENCE 200 MG PO SCH ×2 (07:37→21:25)
[2019-06-10] MEDS: TENOFOV ALAFENAM PO SCH (07:37)
[2019-06-10] MEDS: EMTRICITABINE PO SCH (07:37)
[2019-06-10] MEDS: DOLUTEGRAVIR SODIUM 50 MG PO SCH (07:37)
[2019-06-10] MEDS: MUPIROCIN 2% OINT 22 GM TUBE TOPICAL SCH (07:38)
[2019-06-10] MEDS: SODIUM CHLORIDE 0.9% 1,000 ML IV SCH (07:38)
[2019-06-10] MEDS: MORPHINE SULFATE 2 MG/ML SYRINGE IVP PRN ×2 (08:30→21:26)
[2019-06-10] MEDS: SYMBICORT 160-4.5 MCG INHALER INHALATION SCH ×3 (08:41→19:48)
[2019-06-10] MEDS: guaiFENesin 600 MG TABLET.ER PO PRN (09:08)
--- NOTE | 2019-06-10 09:46 | CDI ---
Documentation Clarification Form Date: 06/10/2019 09:21:24 AM From: Laura Enamorado RN, CCDS Admit Date: 06/09/2019 11:35:00 AM Patient Name: Jack Luna Visit Number: [id number] Discharge Date: ATTENTION: The Clinical Documentation Specialists (CDI) and [facility] Coding Staff appreciate your assistance in clarifying documentation. Please respond to the clarification below the line at the bottom and electronically sign. The CDI & [facility] Coding staff will review the response and follow-up if needed. Please note: Queries are made part of the Legal Health Record. If you have any questions, please contact the author of this message via ITS. Dr. Daniela Rojo Conflicting documentation has been found in the medical record: 06/09/19 Pulmonary consult (Dr. Onofre) CTA chest reviewed, no central pulmonary embolism, however tiny filling defects within the segmental branches could not be excluded but given the negative d-dimer possibility of pulmonary embolism is unlikely. Well treat the patient for acute COPD exacerbation. 06/09/19 ID consult (Dr. Agudelo) CT angiogram suspicious for Pulmonary embolism started on heparin. Impression: Pulmonary embolism. History/Risk Factors: COPD, HIV/AIDS, Current every day smoker Clinical Indicators: 58-year-old male present for shortness of breath. CT angiogram notes tiny filling defect within the anterior lobar branch of the right lower lobe pulmonary artery. The findings is suspicious for tiny nonocclusive pulmonary embolism, but the motion artifact severely limits specificity of this finding. Treatment: Monitor O2 Sat's titrate Heparin IV Nebulized bronchodilators Monitor PT/INR In your opinion, what is the most clinically appropriate diagnosis for this patient? Acute Pulmonary embolism ruled out Acute Pulmonary embolism ruled in Other explanation of clinical findings Unable to determine (no explanation for clinical findings) (Last Revision: August 2017) MTDD
[2019-06-10] MEDS ORDERED: MORPHINE SULFATE 4 MG/ML SYRINGE IVP STA (09:51)
--- NOTE | 2019-06-10 10:20 | P.PN ---
Subjective Progress Note Date: 06/10/19 Patient is seen in the emergency department on 06/09/2019 for complaints of shortness of breath and left-sided chest pain. Patient states he was feeling well over the past week and was seen on Thursday [facility] emergency department and released home same day with prescriptions for doxycycline and prednisone. Patient states he has been coughing frequently over the last few days. Patient denies any fever or chills, patient denies nausea vomiting diarrhea. Patient describes chest pain at the left lateral lower chest wall. Patient states he is unable to sleep lying down due to chest pain and shortness of breath. Patient describes pain as occurring with coughing, increased pain with laying on left side, states pain does not radiate anywhere. Patient denies any substernal chest pain, denies any pain radiating to either arm. Patient states he has not tried any other remedies at home for symptom relief. Patient is seen to have an elevated WBC count at 20.1. Patient has a known hist ory of HIV and states that his most recent CD4 levels are greater than 800. Patient has history of COPD, GERD, hypertension, OA, HIV, neuropathy, sleep apnea. Patient is currently on 2 L nasal cannula in the emergency department, with oxygen saturation 90-91%. Chest x-ray completed revealing bibasilar subsegmental Dependent Atelectasis with Underlying COPD. Will consult pulmonology, will consult infectious disease for HIV management. Plans will be ordered. Sputum culture ordered. At this time patient is having some shortness of breath intermittent chest pain when laying on left side or w ith coughing. Patient denies any nausea vomiting or diarrhea. Patient denies any urinary burning or frequency. On 06/10/2019 patient is alert and oriented 3. Patient still complaining of left sided chest pain. CTA was completed and reviewed per pulmonary no signs of pulmonary embolism for pulmonary. Patient also evaluated by cardiology services per cardiology likely pleuritic in nature. D-dimer was negative. Troponins negative. Discussed case with pulmonary nurse practitioner. Will add Toradol for pain control. Continue Solu-Medrol for COPD exacerbation. Objective - Vital Signs Vital signs: Vital Signs Temp 98.2 F 06/10/19 07:00 Pulse 100 06/10/19 08:57 Resp 15 06/10/19 07:00 BP 124/86 01/17/20 07:00 Pulse Ox 90 L 06/10/19 07:00 Intake & Output 06/09/19 06/10/19 06/10/19 18:59 06:59 18:59 Intake Total 580 618.802 111.198 Balance 580 618.802 111.198 Weight 113.398 kg 114 kg Intake: Intake, IV Titration 378.802 111.198 Amount Heparin Sod,Pork in 0.45% 138.802 111.198 NaCl 25,000 unit In 0.45 % NaCl 1 250ml.bag @ 18 UNITS/KG/HR 20.412 mls/hr IV .[id number] MICHELLE Rx#: [id number] Sodium Chloride 0.9% 1, 240 000 ml @ 20 mls/hr IV . Q24H MICHELLE Rx#:[id number] Oral 580 240 Other: Voiding Method Toilet Toilet Toilet # Voids 1 1 - Exam Head normocephalic Neck supple Lungs diminished in bilateral bases, no wheezing or rales Heart regular rate and rhythm S1-S2, no rub or gallop Abdomen is soft nontender nondistended positive bowel sounds no hepatosplenomegaly Extremities no edema Neuro alert and orientated to 3 - Labs CBC & Chem 7: 06/10/19 05:42 06/10/19 05:42 Labs: Abnormal Lab Results - Last 24 Hours (Table) 06/09/19 06/09/19 06/09/19 Range/Units 17:02 19:05 21:04 WBC 14.5 H (3.8-10.6) k/uL Neutrophils # 13.6 H (1.3-7.7) k/uL Lymphocytes # 0.6 L (1.0-4.8) k/uL APTT (22.0-30.0) sec Sodium (137-145) mmol/L BUN (9-20) mg/dL Glucose (74-99) mg/dL POC Glucose (mg/dL) 214 H 226 H (75-99) mg/dL 06/10/19 06/10/19 06/10/19 Range/Units 03:35 05:42 05:42 WBC 22.4 H (3.8-10.6) k/uL Neutrophils # 20.8 H (1.3-7.7) k/uL Lymphocytes # 0.9 L (1.0-4.8) k/uL APTT 64.8 H (22.0-30.0) sec Sodium 136 L (137-145) mmol/L BUN 25 H (9-20) mg/dL Glucose 180 H (74-99) mg/dL POC Glucose (mg/dL) (75-99) mg/dL 06/10/19 06/10/19 Range/Units 05:42 07:09 WBC (3.8-10.6) k/uL Neutrophils # (1.3-7.7) k/uL Lymphocytes # (1.0-4.8) k/uL APTT 69.2 H (22.0-30.0) sec Sodium (137-145) mmol/L BUN (9-20) mg/dL Glucose (74-99) mg/dL POC Glucose (mg/dL) 169 H (75-99) mg/dL Assessment and Plan Assessment: 1. Dyspnea related to COPD exacerbation. We'll continue with IV steroids and antibiotics. pulmonary services are following 2. Acute purulent tracheobronchitis. Patient maintained on doxycycline. Sputum culture has been ordered Mucinex added 3. History of HIV. Patient taking antivirals, will continue home medication. Patient states most recent CD4 level greater than 800. Infectious disease is following 4. Left-sided Chest discomfort likely pleuritic. Troponins negative, d-dimer 0.34. Chest CTA was performed and reviewed per pulmonary. Patient was started on heparin drip per pulmonary pulmonary embolism is unlikely continue treatment for COPD exacerbation. Toradol and morphine per pulmonary and pain control 5. History of GERD 6. History of hypertension. Will continue home medications 7. History of nicotine dependence. Patient declined nicotine patch. 8. History of sleep apnea DVT prophylaxis heparin. GI prophylaxis pepcid. Pulmonary, cardiology and infectious disease consulted Continue Solu-Medrol and doxycycline I performed an examination of the patient and discussed their management with the Nurse Practitioner. I have reviewed the Nurse Practitioner's notes and agree with the documented findings and plan of care
[2019-06-10] MEDS: KETOROLAC 30 MG/ML 1 ML VIAL IVP SCH ×2 (11:49→18:31)
[2019-06-10 11:54] LABS: Glucose,Whole Blood 147 mg/dL (75-99)
--- NOTE | 2019-06-10 13:18 | P.CRDCN ---
History of Present Illness History of present illness: HISTORY OF PRESENTING ILLNESS This is a pleasant 58-year-old male past medical history significant for COPD, hypertension, HIV, chronic nicotine dependence and morbid obesity. 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 We have been asked to see in consultation for chest pain. He states for the last few days he has been experiencing increased shortness of breath and significant coughing. While he was coughing yesterday he felt what he describes as a "pop" on the left side of his chest/trunk region causing significant pain. The pain is exacerbated by coughing and when he tries to take a deep deep breath. No radiation to the arm, back, neck or jaw. He underwent a CTA of his chest that was inconclusive for possible small nonocclusive embolism. He has been seen in consultation by pulmonary and thought to be related to artifact. DIAGNOSTICS EKG reveals sinus mechanism with no acute ST or T-wave abnormalities. Chest xray bibasilar subsegmental dependent atelectasis and underlying COPD. CTA is negative for central large pulmonary embolism however inconclusive with a noted filling defect within the anterior lower branch of the right lower lobe. Laboratory reviewed, to be VC 22.4, hemoglobin 16.5, platelets 303, d-dimer 0.34, sodium 136, potassium 4.2, creatinine 0.92, magnesium 1.8, cardiac enzymes negative 3, and T proBNP 102. Current cardiac medications include hydrochlorothiazide 25 mg daily, diltiazem 360 mg daily and Accupril 10 mg daily. Most recent echocardiogram obtained August 2018 reveals preserved LV systolic function with ejection fraction 60-65%. REVIEW OF SYSTEMS At the time of my exam: CONSTITUTIONAL: Denies fever or chills. CARDIOVASCULAR: Complains of left trunk pleuritic pain and shortness of breath. Denies orthopnea, PND or palpitations. RESPIRATORY: Complains of cough. GASTROINTESTINAL: Denies abdominal pain, diarrhea, constipation, nausea or vomiting. MUSCULOSKELETAL: Denies myalgias. NEUROLOGIC: Denies numbness, tingling or weakness. ENDOCRINE: Denies fatigue, weight change, polydipsia or polyurina. GENITOURINARY: Denies burning, hematuria or urgency with micturation. HEMATOLOGIC: Denies history of anemia or bleeding. PHYSICAL EXAMINATION Blood pressure 124/86 heart rate 100 afebrile and maintaining oxygen saturation on . C nasal cannulaONSTITUTIONAL: No apparent distress. Morbidly obese. HEENT: Head is normocephalic. Pupils are equal, round. Sclerae anicteric. Mucous membranes of the mouth are moist. No JVD. No carotid bruit. CHEST EXAMINATION: scattered rhonchi and faint expiratory wheeze. No rales. No chest wall tenderness is noted on palpation or with deep breathing. HEART EXAMINATION: Regular rate and rhythm. S1, S2 heard. No murmurs, gallops or rub. ABDOMEN: Soft, nontender. Positive bowel sounds. EXTREMITIES: 2+ peripheral pulses, no lower extremity edema and no calf tenderness. NEUROLOGIC EXAMINATION: Patient is awake, alert and oriented x3. ASSESSMENT Chest pain, pleuritic. Secondary to significant coughing and shortness of breath. Acute exacerbation of COPD Tracheobronchitis Hypertension HIV PLAN Pain is atypical for angina, pleuritic in nature secondary to cough. An acute event has been ruled out. Clinically he is euvolemic. Ongoing medical management and evaluation. Repeat EKG requested, no acute changes noted. Thank you kindly for this consultation. Nurse Practitioner note has been reviewed, I agree with a documented findings and plan of care. Patient was seen and examined. Past Medical History Past Medical History: COPD, GERD/Reflux, Hypertension, Osteoarthritis (OA) Additional Past Medical History / Comment(s): HIV/AIDS(1990) back pain, neuropathy,sleep apnea History of Any Multi-Drug Resistant Organisms: None Reported Additional Past Surgical History / Comment(s): neck surgery, throat surgery Past Anesthesia/Blood Transfusion Reactions: No Reported Reaction Past Psychological History: Bipolar, Depression, Panic Disorder Smoking Status: Current every day smoker Past Alcohol Use History: Occasional Past Drug Use History: None Reported - Past Family History Brother(s) Family Medical History: Diabetes Mellitus Father Family Medical History: Cancer Additional Family Medical History / Comment(s): Father of throat cancer. Mother Additional Family Medical History / Comment(s): Mother of a ruptured brain aneurysm. Medications and Allergies Home Medications Medication Instructions Recorded Confirmed Type Quinapril HCl [Accupril] 10 mg PO DAILY 05/31/16 06/09/19 History Dolutegravir Sodium [Tivicay] 50 mg PO DAILY 09/01/18 06/09/19 History Emtricitabine/Tenofov Alafenam 1 tab PO DAILY 09/01/18 06/09/19 History [Descovy 200-25 mg Tablet] Gabapentin [Neurontin] 300 mg PO TID 09/01/18 06/09/19 History Hydrochlorothiazide [Hydrodiuril] 25 mg PO DAILY 09/01/18 06/09/19 History Levothyroxine Sodium [Synthroid] 25 mcg PO DAILY 09/01/18 06/09/19 History buPROPion HCL [Wellbutrin XL] 300 mg PO DAILY 09/01/18 06/09/19 History traZODone HCL 150 mg PO HS 09/01/18 06/09/19 History Albuterol Inhaler [Ventolin Hfa 2 puff INHALATION RT-Q4H PRN 03/31/19 06/09/19 History Inhaler] Baclofen [Lioresal] 10 mg PO HS 03/31/19 06/09/19 History Citalopram Hydrobromide [CeleXA] 40 mg PO DAILY 03/31/19 06/09/19 History Diltiazem HCl [Diltiazem ER] 360 mg PO DAILY 03/31/19 06/09/19 History Intelence 200mg 200 mg PO BID 03/31/19 06/09/19 History Mupirocin 2% Oint [Bactroban 2% 1 applic TOPICAL DAILY 03/31/19 06/09/19 History Oint] Umeclidinium [place] [Incruse 1 puff INHALATION RT-DAILY 03/31/19 06/09/19 His tory Ellipta] Doxycycline Monohydrate [Monodox] 100 mg PO Q12HR #20 cap 06/05/19 06/09/19 Rx predniSONE 50 mg PO DAILY #5 tab 06/05/19 06/09/19 Rx Acetaminophen-Codeine 300-30mg 1 tab PO Q6H PRN 06/09/19 06/09/19 History [Tylenol w/codeine #3] Ipratropium [place] 0.06%Nasal 1 spray EA NOSTRIL BID 06/09/19 06/09/19 History [Atrovent Nasal 0.06%] Allergies Allergy/AdvReac Type Severity Reaction Status Date / Time azithromycin Allergy Rash/Hives Verified 06/09/19 08:34 [From Zithromax Z-Simone] Sulfa (Sulfonamide Allergy Rash/Hives Verified 06/09/19 08:34 Antibiotics) Physical Exam Vitals: Vital Signs Temp Pulse Pulse Resp BP Pulse Ox 06/10/19 08:57 100 06/10/19 08:42 94 06/10/19 07:00 98.2 F 98 15 124/86 90 L 06/10/19 04:24 88 06/10/19 04:14 84 06/10/19 03:58 19 06/10/19 02:21 98.0 F 86 16 162/81 94 L 06/10/19 00:37 80 06/10/19 00:28 94 92 L 06/10/19 00:00 18 06/09/19 20:24 80 06/09/19 20:13 82 06/09/19 20:00 98.4 F 85 18 126/77 91 L 06/09/19 13:53 94 L Intake and Output 06/09/19 06/10/19 06/10/19 22:59 06:59 14:59 Intake Total 820 378.802 111.198 Balance 820 378.802 111.198 Intake: Intake, IV Titration 378.802 111.198 Amount Heparin Sod,Pork in 0.45% 138.802 111.198 NaCl 25,000 unit In 0.45 % NaCl 1 250ml.bag @ 18 UNITS/KG/HR 20.412 mls/hr IV .[id number] [facility] Rx#: [id number] Sodium Chloride 0.9% 1, 240 000 ml @ 20 mls/hr IV . Q24H [facility] Rx#:[id number] Oral 820 Other: Voiding Method Toilet Toilet Toilet # Voids 1 1 Weight 114 kg Results 06/10/19 05:42 06/10/19 05:42 Cardiac Enzymes 06/09/19 06/09/19 06/10/19 Range/Units 15:08 19:05 05:42 AST (17-59) U/L Troponin I <0.012 <0.012 <0.012 (0.000-0.034) ng/mL 06/10/19 Range/Units 05:42 AST 44 (17-59) U/L Troponin I (0.000-0.034) ng/mL Coagulation 06/09/19 06/10/19 06/10/19 Range/Units 19:05 03:35 05:42 PT 10.3 (9.0-12.0) sec APTT 23.9 64.8 H 69.2 H (22.0-30.0) sec CBC 06/09/19 06/10/19 Range/Units 19:05 05:42 WBC 14.5 H 22.4 H (3.8-10.6) k/uL RBC 5.38 5.49 (4.30-5.90) m/uL Hgb 16.7 16.5 (13.0-17.5) gm/dL Hct 49.2 50.2 (39.0-53.0) % Plt Count 287 303 (150-450) k/uL Comprehensive Metabolic Panel 06/10/19 Range/Units 05:42 Sodium 136 L (137-145) mmol/L Potassium 4.2 (3.5-5.1) mmol/L Chloride 99 (98-107) mmol/L Carbon Dioxide 22 (22-30) mmol/L BUN 25 H (9-20) mg/dL Creatinine 0.92 (0.66-1.25) mg/dL Glucose 180 H (74-99) mg/dL Calcium 9.7 (8.4-10.2) mg/dL AST 44 (17-59) U/L ALT 48 (4-49) U/L Alkaline Phosphatase 58 (38-126) U/L Total Protein 7.4 (6.3-8.2) g/dL Albumin 4.5 (3.5-5.0) g/dL Current Medications Generic Name Dose Route Start Last Admin Trade Name Freq PRN Reason Stop Dose Admin Acetaminophen/Codeine Phosphate 1 each 06/09/19 11:36 06/10/19 09:08 Tylenol #3 PO 1 each Q6H PRN Administration MODERATE Pain Albuterol/Ipratropium 3 ml 06/09/19 12:00 06/10/19 08:40 Duoneb 0.5 Mg-3 Mg/3 Ml Soln INHALATION 3 ml RT-Q4H [facility] Administration Baclofen 10 mg 06/09/19 21:00 06/09/19 21:22 Lioresal PO 10 mg HS [facility] Administration Budesonide/Formoterol Fumarate 2 puff 06/09/19 20:00 06/10/19 09:06 Symbicort 160-4.5 Mcg Inhaler INHALATION Not Given RT-BID [facility] Bupropion HCl 300 mg 06/10/19 09:00 06/10/19 07:36 Wellbutrin Xl PO 300 mg DAILY [facility] Administration Citalopram Hydrobromide 40 mg 06/10/19 09:00 06/10/19 07:36 Celexa PO 40 mg DAILY [facility] Administration Diltiazem HCl 360 mg 06/10/19 09:00 06/10/19 07:36 Cardizem Cd PO 360 mg DAILY [facility] Administration Doxycycline Monohydrate 100 mg 06/09/19 21:00 06/10/19 07:35 Vibramycin PO 100 mg Q12HR [facility] Administration Famotidine 20 mg 06/10/19 09:00 06/10/19 07:36 Pepcid PO 20 mg DAILY [facility] Administration Gabapentin 300 mg 06/09/19 16:00 06/10/19 07:36 Neurontin PO 300 mg TID [facility] Administration Guaifenesin 600 mg 06/09/19 12:16 06/10/19 09:08 Mucinex PO 600 mg Q12HR PRN Administration Cough Heparin Sodium (Porcine) 5,000 unit 06/09/19 21:00 06/10/19 07:36 Heparin SQ Not Given Q12HR [facility] Hydrochlorothiazide 25 mg 06/10/19 09:00 06/10/19 07:36 Hydrodiuril PO 25 mg DAILY [facility] Administration Sodium Chloride 1,000 mls @ 20 mls/hr 06/09/19 11:45 06/10/19 07:38 Saline 0.9% IV Not Given .Q24H [facility] Insulin Aspart 0 unit 06/09/19 12:30 06/10/19 11:51 Novolog SQ Not Given ACHS [facility] Protocol Ketorolac Tromethamine 30 mg 06/10/19 12:00 06/10/19 11:49 Toradol IVP 06/14/19 09:47 30 mg Q6HR [facility] Administration Levothyroxine Sodium 25 mcg 06/10/19 06:30 06/10/19 05:46 Synthroid PO 25 mcg DAILY@0630 [facility] Administration Lisinopril 10 mg 06/10/19 09:00 06/10/19 07:36 Zestril PO 10 mg DAILY [facility] Administration Methylprednisolone Sodium Succinate 60 mg 06/09/19 12:00 06/10/19 11:48 Solu-Medrol IV 60 mg Q6HR [facility] Administration Miscellaneous Information 1 each 06/09/19 15:19 Rx Info: Iv Contrast Was Given MISCELLANE 06/11/19 15:19 DAILY PRN Per Protocol Morphine Sulfate 2 mg 06/09/19 14:00 06/10/19 08:30 Morphine Sulfate (Inj) IVP 2 mg Q4H PRN Administration SEVERE Pain/Discomfort Mupirocin 1 applic 06/10/19 09:00 06/10/19 07:38 Bactroban Oint TOPICAL Not Given DAILY [facility] Non-Formulary Medication 200 mg 06/09/19 21:00 06/10/19 07:37 Intelence 200mg PO 200 mg BID [facility] Administration Non-Formulary Medication 1 tab 06/10/19 09:00 06/10/19 07:37 Emtricitabine/Tenofov Alafenam [Descovy 200-25 Mg Tablet] PO 1 tab DAILY [facility] Administration Non-Formulary Medication 50 mg 06/10/19 09:00 06/10/19 07:37 Dolutegravir Sodium [Tivicay] PO 50 mg DAILY [facility] Administration Trazodone HCl 150 mg 06/09/19 21:00 06/09/19 21:22 Desyrel PO 150 mg HS [facility] Administration Intake and Output 06/09/19 06/10/19 06/10/19 22:59 06:59 14:59 Intake Total 820 378.802 111.198 Balance 820 378.802 111.198 Intake: Intake, IV Titration 378.802 111.198 Amount Heparin Sod,Pork in 0.45% 138.802 111.198 NaCl 25,000 unit In 0.45 % NaCl 1 250ml.bag @ 18 UNITS/KG/HR 20.412 mls/hr IV .[id number] [facility] Rx#: [id number] Sodium Chloride 0.9% 1, 240 000 ml @ 20 mls/hr IV . Q24H [facility] Rx#:[id number] Oral 820 Other: Voiding Method Toilet Toilet Toilet # Voids 1 1 Weight 114 kg 06/10/19 05:42 06/10/19 05:42
--- NOTE | 2019-06-10 13:44 | P.PN ---
Subjective Progress Note Date: 06/10/19 Principal diagnosis: 58-year-old white male patient with history of COPD normally oxygen dependent, hypertension, current smoker, bipolar, depression, HIV well treated, neuropathy and sleep apnea. Patient presented to the emergency department on 06/09/2019 complaints of worsening shortness of breath and sharp left-sided chest pain. Patient was seen in the emergency department over the weekend on Thursday where he was seen for complaints of cough, congestion and shortness of breath. He had been sick for a period of over 1 week, he did see his PCP last week and was not given any medication, patient was also complaining of left lower rib pain which was worse with deep inspiration, patient was placed on doxycycline and prednisone, and discharged home, however his left-sided chest pain Getting worse and patient came into the emergency department for reevaluation 06/09/2019. Chest x-ray showed bibasilar subsegmental dependent atelectasis, underlying COPD. admission blood work showed a white blood cell count of 20.1, hemoglobin of 16.7, electrolytes were unremarkable, B1 is 22 creatinine was 0.93, troponins were negative 2 at less than 0.012, proBNP was 102, influenza screen was negative. D-dimer was 0.34. Patient is short of breath, and his pulse ox is 89-91%, afebrile. His lungs are diminished, but not significantly bronchospastic or congested, patient was continued on doxycycline, breathing treatments, Mucinex, and IV steroids and admitted for further management. He is receiving pain medications for pain control On 06/10/2019 patient seen in follow-up on a general medical floor. He is complaining of severe pain in the left chest and he is anxious and short of breath. But lung sounds are not significantly bronchospastic or congested, today's labs have been reviewed showing white blood cell count of 22.4, hemoglobin is 16.5, sodium of 136, the rest of the electrolytes were within normal limits, B1 is 25, creatinine 0.92, troponins were less than 0.012. Patient is on 4 L of oxygen with a pulse ox of 90, afebrile, hemodynamically stable, respirations are shallow related to his left pleuritic chest pain, patient is receiving Tylenol 3 and morphine for breakthrough pain however it appears that his current pain control is ineffective. In addition patient remains on IV steroids, antibiotics and breathing treatments Objective - Vital Signs Vital signs: Vital Signs Temp 98.2 F 06/10/19 07:00 Pulse 106 H 06/10/19 13:29 Resp 15 06/10/19 07:00 BP 124/86 06/10/19 07:00 Pulse Ox 90 L 06/10/19 07:00 Intake & Output 06/09/19 06/10/19 06/10/19 18:59 06:59 18:59 Intake Total 580 618.802 111.198 Balance 580 618.802 111.198 Weight 113.398 kg 114 kg Intake: Intake, IV Titration 378.802 111.198 Amount Heparin Sod,Pork in 0.45% 138.802 111.198 NaCl 25,000 unit In 0.45 % NaCl 1 250ml.bag @ 18 UNITS/KG/HR 20.412 mls/hr IV .[id number] [facility] Rx#: [id number] Sodium Chloride 0.9% 1, 240 000 ml @ 20 mls/hr IV . Q24H [facility] Rx#:[id number] Oral 580 240 Other: Voiding Method Toilet Toilet Toilet # Voids 1 1 - Exam GENERAL EXAM: Alert, very pleasant, 58-year-old short statured white male on 4 L of oxygen with a pulse ox of 89-91%, tachypneic, in moderate to severe distress from left pleuritic chest pain HEAD: Normocephalic/atraumatic. EYES: Normal reaction of pupils, equal size. Conjunctiva pink, sclera white. NOSE: Clear with pink turbinates. THROAT: No erythema or exudates. NECK: No masses, no JVD, no thyroid enlargement, no adenopathy. CHEST: No chest wall deformity. Symmetrical expansion. LUNGS: diminished air entry with no crackles, wheeze, rhonchi or dullness. CVS: Regular rate and rhythm, normal S1 and S2, no gallops, no murmurs, no rubs ABDOMEN: Soft, nontender. No hepatosplenomegaly, normal bowel sounds, no guarding or rigidity. EXTREMITIES: No clubbing, mild pretibial and ankle edema, no cyanosis, 2+ pulses and upper and lower extremities. MUSCULOSKELETAL: Muscle strength and tone normal. SPINE: No scoliosis or deformity SKIN: No rashes CENTRAL NERVOUS SYSTEM: Alert and oriented -3. No focal deficits, tone is normal in all 4 extremities. PSYCHIATRIC: Alert and oriented -3. Appropriate affect. Intact judgment and insight. - Labs CBC & Chem 7: 06/10/19 05:42 06/10/19 05:42 Labs: Abnormal Lab Results - Last 24 Hours (Table) 06/09/19 06/09/19 06/09/19 Range/Units 17:02 19:05 21:04 WBC 14.5 H (3.8-10.6) k/uL Neutrophils # 13.6 H (1.3-7.7) k/uL Lymphocytes # 0.6 L (1.0-4.8) k/uL APTT (22.0-30.0) sec Sodium (137-145) mmol/L BUN (9-20) mg/dL Glucose (74-99) mg/dL POC Glucose (mg/dL) 214 H 226 H (75-99) mg/dL 06/10/19 06/10/19 06/10/19 Range/Units 03:35 05:42 05:42 WBC 22.4 H (3.8-10.6) k/uL Neutrophils # 20.8 H (1.3-7.7) k/uL Lymphocytes # 0.9 L (1.0-4.8) k/uL APTT 64.8 H (22.0-30.0) sec Sodium 136 L (137-145) mmol/L BUN 25 H (9-20) mg/dL Glucose 180 H (74-99) mg/dL POC Glucose (mg/dL) (75-99) mg/dL 06/10/19 06/10/19 06/10/19 Range/Units 05:42 07:09 11:51 WBC (3.8-10.6) k/uL Neutrophils # (1.3-7.7) k/uL Lymphocytes # (1.0-4.8) k/uL APTT 69.2 H (22.0-30.0) sec Sodium (137-145) mmol/L BUN (9-20) mg/dL Glucose (74-99) mg/dL POC Glucose (mg/dL) 169 H 147 H (75-99) mg/dL Assessment and Plan Plan: Assessment: #1. Acute dyspnea and acute hypoxemic respiratory failure related to acute COPD exacerbation and pleuritic chest pain in the left side, chest x-ray showed bibasilar subsegmental dependent atelectasis #2. History of HIV, on anti-viral with adequate CD4 counts #3. Pleuritic chest pain in the left side, d-dimer is negative, 4 sets of cardiac troponins are negative at less than 0.012, acute pulmonary embolism ruled out #4. History of GERD #5. History of hypertension #6. COPD not oxygen dependent at baseline #7. History of chronic and ongoing nicotine dependence #8. History of sleep apnea #9. Bipolar disorder Plan: Pulmonary embolism has been ruled out, heparin drip had can be discontinued, patient however still having severe pleuritic left side chest pain which is exacerbating his dyspnea. We will continue with IV steroids, will add IV Toradol, we'll give the patient one-time dose of 4 mg of morphine and continue with 2 mg of morphine every 4 as needed for breakthrough pain, continue empiric antibiotics, breathing treatments. Will continue to follow I performed a history & physical examination of the patient and discussed their management with my nurse practitioner, Angela Barksdale. I reviewed the nurse practitioner's note and agree with the documented findings and plan of care. Lung sounds are positive for diminished breath sounds. The findings and the impression was discussed with the patient. I attest to the documentation by the nurse practitioner. Time with Patient: Less than 30
--- NOTE | 2019-06-10 16:33 | XR ---
EXAMINATION TYPE: XR ribs LT DATE OF EXAM: 06/10/2019 COMPARISON: Chest x-ray 06/09/2019 HISTORY: Difficulty breathing. Chest pain TECHNIQUE: 5 views. FINDINGS: There is mild blunting left costophrenic angle. There is linear density at the left lung base. I see no displaced rib fracture. IMPRESSION: There are some pleural reaction and atelectasis left lung base increased compared to yest erday. No rib fracture seen.
[2019-06-10 16:47] LABS: Glucose,Whole Blood 168 mg/dL (75-99)
--- NOTE | 2019-06-10 16:49 | P.PN ---
Progress Note - Text Progress Note Date: 06/10/19 For documentation verification, pulmonary embolism was basically practically ruled out based on the fact that the patient had nondiagnostic CT angiogram of the chest, and a negative d-dimer. Again clinically there is no evidence of pulmonary embolism
--- NOTE | 2019-06-10 17:20 | PN ---
PROGRESS NOTE DATE OF SERVICE: 06/10/2019. REASON FOR FOLLOWUP: HIV. INTERVAL HISTORY: The patient is currently afebrile. The patient is still complaining of pain to the left side of his chest, though no worsening. He did have a cough which has been mild with occasional sputum. No nausea, no vomiting. No abdominal pain or diarrhea. PHYSICAL EXAMINATION: Blood pressure 124/86, pulse of 98, temperature 98.2. He is 90% on 4 L nasal cannula. General description is a middle-aged male up in the chair in no distress. RESPIRATORY SYSTEM: Unlabored breathing with decreased breath sounds at the base. No wheeze. HEART: S1, S2. Regular rate and rhythm. ABDOMEN: Soft. No tenderness. LABS: Hemoglobin is 16.5, white count 22.4 with a BUN of 25, creatinine 0.92. DIAGNOSTIC IMPRESSION AND PLAN: 1. Patient admitted to hospital with left-sided chest pain and a question of PE. The patient is being monitored by Pulmonary. Clinical suspicion is low for pneumonia in this patient with no fever and no evidence of any consolidation on the CT angiogram. The patient did have a jump in white count, more likely steroid effect, and he will be monitored closely. 2. Patient with HIV. To continue with his anti-retroviral medication and continue with supportive care. MMODL / IJN: [id number] /
[2019-06-10] MEDS ORDERED: IPRATROPIUM-ALBUTEROL 3 ML NEB INHALATION PRN (20:18)
[2019-06-10 21:19] LABS: Glucose,Whole Blood 102 mg/dL (75-99)
[2019-06-10] MEDS: traZODone HCL 50 MG TAB PO SCH (21:24)
[2019-06-10] MEDS: DIAZEPAM 5 MG TAB PO SCH (21:24)
[2019-06-10] MEDS: BACLOFEN 10 MG TAB PO SCH (21:24)
[2019-06-11] MEDS: methylPREDNISolone SOD SUCCI 40 MG/ML 1 ML VIAL IV SCH ×2 (02:13→07:44)
[2019-06-11] MEDS: KETOROLAC 30 MG/ML 1 ML VIAL IVP SCH ×4 (02:14→17:44)
[2019-06-11] MEDS: Acetaminophen-Codeine 300-30mg TAB PO PRN ×4 (02:17→21:56)
[2019-06-11] MEDS: LEVOTHYROXINE 25 MCG TAB PO SCH (05:59)
[2019-06-11 07:03] LABS: Glucose,Whole Blood 146 mg/dL (75-99)
[2019-06-11] MEDS: IPRATROPIUM-ALBUTEROL 3 ML NEB INHALATION SCH ×4 (07:22→20:48)
[2019-06-11] MEDS: SYMBICORT 160-4.5 MCG INHALER INHALATION SCH ×2 (07:23→20:48)
[2019-06-11 07:25] LABS: Basophils # (A) 0.1 k/uL (0-0.2); Basophils % (A) 0 %; Eosinophils # (A) 0.1 k/uL (0-0.7); Eosinophils % (A) 0 %; HCT 45.6 % (39.0-53.0); HGB 15.4 gm/dL (13.0-17.5); Lymphocytes # (A) 0.6 k/uL (1.0-4.8); Lymphocytes % (A) 2 %; MCH 30.7 pg (25.0-35.0); MCHC 33.7 g/dL (31.0-37.0); Mean Platelet Volume 6.9; Monocytes # (A) 1.2 k/uL (0-1.0); Monocytes % (A) 4 %; Neutrophils # (A) 26.1 k/uL (1.3-7.7); Neutrophils % (A) 92 %; Platelet Count 297 k/uL (150-450); RBC 5.01 m/uL (4.30-5.90); RDW 13.4 % (11.5-15.5); WBC 28.3 k/uL (3.8-10.6)
[2019-06-11 07:28] LABS: Albumin 4.4 g/dL (3.5-5.0); Calcium 9.4 mg/dL (8.4-10.2); Potassium 4.6 mmol/L (3.5-5.1); Total Bilirubin 0.8 mg/dL (0.2-1.3); Total Protein 7.2 g/dL (6.3-8.2)
[2019-06-11] MEDS: INSULIN ASPART (NovoLOG) 100 UNIT/ML VIAL SQ SCH ×4 (07:43→21:29)
[2019-06-11] MEDS: HEPARIN SODIUM,PORCINE 5,000 UNIT/ML 1 ML VIAL SQ SCH ×3 (07:43→21:30)
[2019-06-11] MEDS: CITALOPRAM HYDROBROMIDE 20 MG TAB PO SCH (07:44)
[2019-06-11] MEDS: LISINOPRIL 10 MG TAB PO SCH (07:44)
[2019-06-11] MEDS: GABAPENTIN 300 MG CAP PO SCH ×3 (07:44→20:48)
[2019-06-11] MEDS: buPROPion XL 300 MG TAB.ER.24H PO SCH (07:44)
[2019-06-11] MEDS: FAMOTIDINE 20 MG TAB PO SCH (07:44)
[2019-06-11] MEDS: INTELENCE 200 MG PO SCH ×2 (07:44→21:18)
[2019-06-11] MEDS: HYDROCHLOROTHIAZIDE 25 MG TAB PO SCH (07:44)
[2019-06-11] MEDS: DOXYCYCLINE 100 MG CAP PO SCH ×2 (07:45→21:19)
[2019-06-11] MEDS: DOLUTEGRAVIR SODIUM 50 MG PO SCH (07:45)
[2019-06-11] MEDS: DILTIAZEM CD 180 MG CAP.ER.24H PO SCH (07:45)
[2019-06-11] MEDS: MUPIROCIN 2% OINT 22 GM TUBE TOPICAL SCH (07:56)
[2019-06-11] MEDS: EMTRICITABINE PO SCH (07:58)
[2019-06-11] MEDS: TENOFOV ALAFENAM PO SCH (07:58)
--- NOTE | 2019-06-11 10:40 | P.PN ---
Subjective Progress Note Date: 06/11/19 Patient is seen in the emergency department on 06/09/2019 for complaints of shortness of breath and left-sided chest pain. Patient states he was feeling well over the past week and was seen on Thursday [facility] emergency department and released home same day with prescriptions for doxycycline and prednisone. Patient states he has been coughing frequently over the last few days. Patient denies any fever or chills, patient denies nausea vomiting diarrhea. Patient describes chest pain at the left lateral lower chest wall. Patient states he is unable to sleep lying down due to chest pain and shortness of breath. Patient describes pain as occurring with coughing, increased pain with laying on left side, states pain does not radiate anywhere. Patient denies any substernal chest pain, denies any pain radiating to either arm. Patient states he has not tried any other remedies at home for symptom relief. Patient is seen to have an elevated WBC count at 20.1. Patient has a known hist ory of HIV and states that his most recent CD4 levels are greater than 800. Patient has history of COPD, GERD, hypertension, OA, HIV, neuropathy, sleep apnea. Patient is currently on 2 L nasal cannula in the emergency department, with oxygen saturation 90-91%. Chest x-ray completed revealing bibasilar subsegmental Dependent Atelectasis with Underlying COPD. Will consult pulmonology, will consult infectious disease for HIV management. Plans will be ordered. Sputum culture ordered. At this time patient is having some shortness of breath intermittent chest pain when laying on left side or w ith coughing. Patient denies any nausea vomiting or diarrhea. Patient denies any urinary burning or frequency. On 06/10/2019 patient is alert and oriented 3. Patient still complaining of left sided chest pain. CTA was completed and reviewed per pulmonary no signs of pulmonary embolism for pulmonary. Patient also evaluated by cardiology services per cardiology likely pleuritic in nature. D-dimer was negative. Troponins negative. Discussed case with pulmonary nurse practitioner. Will add Toradol for pain control. Continue Solu-Medrol for COPD exacerbation. On 06/11/2019 patient is alert and oriented X3. Heparin gtt has been d/c per pulmonary. Per nursing staff patient has been refusing heparin sq for DVT prophylaxsis. patient was educated that this is for prevention and important to prevent blood clots while in the hospital. patient verbalized understanding. Patient reports he is still having some shortness of breath. Left sided rib pain with coughing. rib xray negative for fracture. pulmonary, cardiology and ID following.+ Objective - Vital Signs Vital signs: Vital Signs Temp 98.2 F 06/11/19 07:00 Pulse 92 06/11/19 07:38 Resp 18 06/11/19 07:00 BP 125/75 06/11/19 07:00 Pulse Ox 91 L 06/11/19 07:00 Intake & Output 06/10/19 06/11/19 06/11/19 18:59 06:59 18:59 Intake Total 591.198 980 Balance 591.198 980 Intake: Intake, IV Titration 111.198 Amount Heparin Sod,Pork in 0.45% 111.198 NaCl 25,000 unit In 0.45 % NaCl 1 250ml.bag @ 18 UNITS/KG/HR 20.412 mls/hr IV .[id number] [facility] Rx#: [id number] Oral 480 980 Other: Voiding Method Toilet Toilet # Voids 1 2 - Exam Head normocephalic Neck supple Lungs diminished in bilateral bases, no wheezing or rales Heart regular rate and rhythm S1-S2, no rub or gallop Abdomen is soft nontender nondistended positive bowel sounds no hepatosplenomegaly Extremities no edema Neuro alert and orientated to 3 - Labs CBC & Chem 7: 06/11/19 06:42 06/11/19 06:42 Labs: Abnormal Lab Results - Last 24 Hours (Table) 06/10/19 06/10/19 06/10/19 Range/Units 11:51 16:42 21:17 WBC (3.8-10.6) k/uL Neutrophils # (1.3-7.7) k/uL Lymphocytes # (1.0-4.8) k/uL Monocytes # (0-1.0) k/uL Sodium (137-145) mmol/L Chloride (98-107) mmol/L BUN (9-20) mg/dL Creatinine (0.66-1.25) mg/dL Glucose (74-99) mg/dL POC Glucose (mg/dL) 147 H 168 H 102 H (75-99) mg/dL 01/18/20 01/18/20 01/18/20 Range/Units 06:42 06:42 07:01 WBC 28.3 H (3.8-10.6) k/uL Neutrophils # 26.1 H (1.3-7.7) k/uL Lymphocytes # 0.6 L (1.0-4.8) k/uL Monocytes # 1.2 H (0-1.0) k/uL Sodium 134 L (137-145) mmol/L Chloride 97 L (98-107) mmol/L BUN 48 H (9-20) mg/dL Creatinine 1.30 H (0.66-1.25) mg/dL Glucose 150 H (74-99) mg/dL POC Glucose (mg/dL) 146 H (75-99) mg/dL Assessment and Plan Assessment: 1. Dyspnea related to COPD exacerbation. We'll continue with IV steroids and antibiotics. pulmonary services are following 2. Acute purulent tracheobronchitis. Patient maintained on doxycycline. Sputum culture has been ordered Mucinex added 3. History of HIV. Patient taking antivirals, will continue home medication. Patient states most recent CD4 level greater than 800. Infectious disease is following 4. Left-sided Chest discomfort likely pleuritic. Troponins negative, d-dimer 0.34. Chest CTA was performed and reviewed per pulmonary. Patient was started on heparin drip per pulmonary pulmonary embolism is unlikely continue treatment for COPD exacerbation. Toradol and morphine per pulmonary and pain control. heparin gtt d/c per pulmonary. Per cardiology discomfort atypical for chest pain. tele has been d/c troponins negative. 2decho has been ordered. 5. History of GERD 6. History of hypertension. Will continue home medications 7. History of nicotine dependence. Patient declined nicotine patch. 8. History of sleep apnea 9. Acute Kidney Injury. creatinine 1.30. continue to monitor closely. Hydrochlorithiazide currently on hold. NS at 50 DVT prophylaxis heparin. GI prophylaxis pepcid. Pulmonary, cardiology and infectious disease consulted Continue Solu-Medrol and doxycycline I performed an examination of the patient and discussed their management with the Nurse Practitioner. I have reviewed the Nurse Practitioner's notes and agree with the documented findings and plan of care
[2019-06-11 11:29] LABS: ABG Base Excess 1.4 mmol/L; ABG HCO3 26 mmol/L (21-25); ABG Oxygen Saturation 92.7 % (94-97); ABG PCO2 39 mmHg (35-45); ABG PH 7.43 (7.35-7.45); ABG PO2 64 mmHg (83-108); ABG TCO2 27 mmol/L (19-24); Allen Test Performed? Yes
[2019-06-11] MEDS: SODIUM CHLORIDE 0.9% 1,000 ML IV SCH (11:42)
[2019-06-11 11:58] LABS: Glucose,Whole Blood 111 mg/dL (75-99)
--- NOTE | 2019-06-11 13:13 | P.PN ---
Subjective Progress Note Date: 06/11/19 Principal diagnosis: Acute hypoxemic respiratory failure secondary to an acute exacerbation of COPD 58-year-old white male patient with history of COPD normally oxygen dependent, hypertension, current smoker, bipolar, depression, HIV well treated, neuropathy and sleep apnea. Patient presented to the emergency department on 06/09/2019 complaints of worsening shortness of breath and sharp left-sided chest pain. Patient was seen in the emergency department over the weekend on Thursday where he was seen for complaints of cough, congestion and shortness of breath. He had been sick for a period of over 1 week, he did see his PCP last week and was not given any medication, patient was also complaining of left lower rib pain which was worse with deep inspiration, patient was placed on doxycycline and prednisone, and discharged home, however his left-sided chest pain Getting worse and patient came into the emergency department for reevaluation 06/09/2019. Chest x-ray showed bibasilar subsegmental dependent atelectasis, underlying COPD. admission blood work showed a white blood cell count of 20.1, hemoglobin of 16.7, electrolytes were unremarkable, B1 is 22 creatinine was 0.93, troponins were negative 2 at less than 0.012, proBNP was 102, influenza screen was negat hodan. D-dimer was 0.34. Patient is short of breath, and his pulse ox is 89-91%, afebrile. His lungs are diminished, but not significantly bronchospastic or congested, patient was continued on doxycycline, breathing treatments, Mucinex, and IV steroids and admitted for further management. He is receiving pain medications for pain control On 06/10/2019 patient seen in follow-up on a general medical floor. He is complaining of severe pain in the left chest and he is anxious and short of breath. But lung sounds are not significantly bronchospastic or congested, today's labs have been reviewed showing white blood cell count of 22.4, hemoglobin is 16.5, sodium of 136, the rest of the electrolytes were within normal limits, B1 is 25, creatinine 0.92, troponins were less than 0.012. Patient is on 4 L of oxygen with a pulse ox of 90, afebrile, hemodynamically stable, respirations are shallow related to his left pleuritic chest pain, patient is receiving Tylenol 3 and morphine for breakthrough pain however it appears that his current pain control is ineffective. In addition patient rem ains on IV steroids, antibiotics and breathing treatments The patient is seen today 06/11/2019 in follow-up on the regular medical floor. He is currently sitting up at the bedside. Awake and alert in no acute distress. Still having significant shortness of breath with minimal exertion. Still having some ongoing left-sided chest discomfort. Rib series revealed no acute fracture. There is some pleural reaction and atelectasis left lung base. White count 28.3. Hemoglobin 15.4. Sodium 134. Potassium 4.6. Bicarb 24. Creatinine 1.30. Arterial blood gases on 32% FiO2 revealed a pO2 of 64, pCO2 39, pH 7.43. Currently maintaining O2 saturations in the low 90s on 4 L/m per nasal cannula. He's been afebrile. Hemodynamically stable. He is continued on DuoNeb inhalations, Symbicort, doxycycline. Objective - Vital Signs Vital signs: Vital Signs Temp 98.2 F 06/11/19 07:00 Pulse 96 06/11/19 11:44 Resp 18 06/11/19 07:00 BP 125/75 06/11/19 07:00 Pulse Ox 91 L 06/11/19 07:00 Intake & Output 06/10/19 06/11/19 06/11/19 18:59 06:59 18:59 Intake Total 591.198 980 Balance 591.198 980 Intake: Intake, IV Titration 111.198 Amount Heparin Sod,Pork in 0.45% 111.198 NaCl 25,000 unit In 0.45 % NaCl 1 250ml.bag @ 18 UNITS/KG/HR 20.412 mls/hr IV .[id number] [facility] Rx#: [id number] Oral 480 980 Other: Voiding Method Toilet Toilet # Voids 1 2 - Exam GENERAL EXAM: Alert, very pleasant, 58-year-old male patient on 4 L of oxygen with a pulse ox of 91%, left pleuritic chest pain HEAD: Normocephalic/atraumatic. EYES: Normal reaction of pupils, equal size. Conjunctiva pink, sclera white. NOSE: Clear with pink turbinates. THROAT: No erythema or exudates. NECK: No masses, no JVD, no thyroid enlargement, no adenopathy. CHEST: No chest wall deformity. Symmetrical expansion. LUNGS: diminished air entry with crackles in the left base CVS: Regular rate and rhythm, normal S1 and S2, no gallops, no murmurs, no rubs ABDOMEN: Soft, nontender. No hepatosplenomegaly, normal bowel sounds, no guarding or rigidity. EXTREMITIES: No clubbing, mild pretibial and ankle edema, no cyanosis, 2+ pulses and upper and lower extremities. MUSCULOSKELETAL: Muscle strength and tone normal. SPINE: No scoliosis or deformity SKIN: No rashes CENTRAL NERVOUS SYSTEM: No focal deficits, tone is normal in all 4 extremities. PSYCHIATRIC: Alert and oriented -3. Appropriate affect. Intact judgment and insight. - Labs CBC & Chem 7: 06/11/19 06:42 06/11/19 06:42 Labs: Abnormal Lab Results - Last 24 Hours (Table) 06/10/19 06/10/19 06/11/19 Range/Units 16:42 21:17 06:42 WBC 28.3 H (3.8-10.6) k/uL Neutrophils # 26.1 H (1.3-7.7) k/uL Lymphocytes # 0.6 L (1.0-4.8) k/uL Monocytes # 1.2 H (0-1.0) k/uL ABG pO2 (83-108) mmHg ABG HCO3 (21-25) mmol/L ABG Total CO2 (19-24) mmol/L ABG O2 Saturation (94-97) % Sodium (137-145) mmol/L Chloride (98-107) mmol/L BUN (9-20) mg/dL Creatinine (0.66-1.25) mg/dL Glucose (74-99) mg/dL POC Glucose (mg/dL) 168 H 102 H (75-99) mg/dL 06/11/19 06/11/19 06/11/19 Range/Units 06:42 07:01 11:20 WBC (3.8-10.6) k/uL Neutrophils # (1.3-7.7) k/uL Lymphocytes # (1.0-4.8) k/uL Monocytes # (0-1.0) k/uL ABG pO2 64 L (83-108) mmHg ABG HCO3 26 H (21-25) mmol/L ABG Total CO2 27 H (19-24) mmol/L ABG O2 Saturation 92.7 L (94-97) % Sodium 134 L (137-145) mmol/L Chloride 97 L (98-107) mmol/L BUN 48 H (9-20) mg/dL Creatinine 1.30 H (0.66-1.25) mg/dL Glucose 150 H (74-99) mg/dL POC Glucose (mg/dL) 146 H (75-99) mg/dL 06/11/19 Range/Units 11:56 WBC (3.8-10.6) k/uL Neutrophils # (1.3-7.7) k/uL Lymphocytes # (1.0-4.8) k/uL Monocytes # (0-1.0) k/uL ABG pO2 (83-108) mmHg ABG HCO3 (21-25) mmol/L ABG Total CO2 (19-24) mmol/L ABG O2 Saturation (94-97) % Sodium (137-145) mmol/L Chloride (98-107) mmol/L BUN (9-20) mg/dL Creatinine (0.66-1.25) mg/dL Glucose (74-99) mg/dL POC Glucose (mg/dL) 111 H (75-99) mg/dL Assessment and Plan Assessment: #1. Acute dyspnea and acute hypoxemic respiratory failure related to acute COPD exacerbation and pleuritic chest pain in the left side, chest x-ray showed bibasilar subsegmental dependent atelectasis, rib series revealed no acute fracture #2. History of HIV, on anti-viral with adequate CD4 counts #3. Pleuritic chest pain in the left side, d-dimer is negative, 4 sets of cardiac troponins are negative at less than 0.012, acute pulmonary embolism ruled out #4. History of GERD #5. History of hypertension #6. COPD not oxygen dependent at baseline #7. History of chronic and ongoing nicotine dependence #8. History of sleep apnea #9. Bipolar disorder Plan: The patient was seen and evaluated by Dr. Onofre. He is improved today compared to yesterday. We'll continue the current treatment plan. Increase his activity as tolerated. We'll continue to follow. I, the cosigning physician, performed a history & physical examination of the patient. Lungs sounds with crackles in left lung base. Maintaining good O2 saturations in the 90s on 4 L/m per nasal cannula. I discussed the assessment and plan of care with my nurse practitioner, Clementina Márquez. I attest to the above note as dictated by her.
[2019-06-11 16:45] LABS: Glucose,Whole Blood 205 mg/dL (75-99)
[2019-06-11 20:35] LABS: Glucose,Whole Blood 134 mg/dL (75-99)
[2019-06-11] MEDS: DIAZEPAM 5 MG TAB PO SCH (21:20)
[2019-06-11] MEDS: traZODone HCL 50 MG TAB PO SCH (21:20)
[2019-06-11] MEDS: BACLOFEN 10 MG TAB PO SCH (21:20)
--- NOTE | 2019-06-11 23:50 | PN ---
PROGRESS NOTE DATE OF SERVICE: 06/11/2019. REASON FOR FOLLOW UP: HIV. INTERVAL HISTORY: The patient is currently afebrile. The patient's pain to the left lower chest is slightly decreased intensity. He is unable to walk with less shortness of breath. Denies any worsening cough or sputum production. No nausea or vomiting. No abdominal pain. No diarrhea. PHYSICAL EXAMINATION: On examination, blood pressure is 107/48 with a pulse of 89. Temperature 97.6. He is 92% on 2 L nasal cannula. General description is a middle-aged male up in the bed in no distress. Respiratory system: Unlabored breathing. Decreased breath sounds in the bases. No wheeze. Heart S1, S2. Regular rate and rhythm. Abdomen soft, no tenderness. LABS: BUN of 14, creatinine 0.30, white count up to 28,000. DIAGNOSTIC IMPRESSION AND PLAN: 1. Patient admitted to the hospital with left-sided chest pain in this patient who did show concern for PE that has been ruled out. The patient is currently covered with bronchodilator, steroids and doxepin. To continue. 2. Elevated white count more likely due to steroid effect. Hopefully should trend down as steroid has been cut back. 3. Patient with HIV. The patient to continue with his HIV medication. Monitor his clinical course closely. MMODL / IJN: [id number] / JENNIFER
[2019-06-12] MEDS: KETOROLAC 30 MG/ML 1 ML VIAL IVP SCH ×5 (01:27→23:57)
[2019-06-12] MEDS: LEVOTHYROXINE 25 MCG TAB PO SCH (05:51)
[2019-06-12 07:11] LABS: Glucose,Whole Blood 117 mg/dL (75-99)
[2019-06-12 07:29] LABS: Basophils # (A) 0.1 k/uL (0-0.2); Basophils % (A) 1 %; Eosinophils % (A) 0 %; HCT 45.6 % (39.0-53.0); HGB 15.2 gm/dL (13.0-17.5); Lymphocytes # (A) 1.5 k/uL (1.0-4.8); Lymphocytes % (A) 7 %; MCH 30.7 pg (25.0-35.0); MCHC 33.3 g/dL (31.0-37.0); MCV 92.1 fL (80.0-100.0); Mean Platelet Volume 6.8; Monocytes # (A) 1.7 k/uL (0-1.0); Monocytes % (A) 8 %; Neutrophils # (A) 18.4 k/uL (1.3-7.7); Neutrophils % (A) 84 %; Platelet Count 265 k/uL (150-450); RBC 4.95 m/uL (4.30-5.90); RDW 13.4 % (11.5-15.5)
[2019-06-12] MEDS: Acetaminophen-Codeine 300-30mg TAB PO PRN (07:29)
[2019-06-12] MEDS: INSULIN ASPART (NovoLOG) 100 UNIT/ML VIAL SQ SCH ×4 (07:29→20:28)
[2019-06-12] MEDS: buPROPion XL 300 MG TAB.ER.24H PO SCH (07:30)
[2019-06-12] MEDS: FAMOTIDINE 20 MG TAB PO SCH (07:30)
[2019-06-12] MEDS: LISINOPRIL 10 MG TAB PO SCH (07:30)
[2019-06-12] MEDS: GABAPENTIN 300 MG CAP PO SCH ×3 (07:30→20:52)
[2019-06-12] MEDS: DOLUTEGRAVIR SODIUM 50 MG PO SCH (07:30)
[2019-06-12] MEDS: INTELENCE 200 MG PO SCH ×2 (07:30→20:52)
[2019-06-12] MEDS: CITALOPRAM HYDROBROMIDE 20 MG TAB PO SCH (07:30)
[2019-06-12] MEDS: DOXYCYCLINE 100 MG CAP PO SCH ×2 (07:31→20:58)
[2019-06-12] MEDS: EMTRICITABINE PO SCH (07:31)
[2019-06-12] MEDS: DILTIAZEM CD 180 MG CAP.ER.24H PO SCH (07:31)
[2019-06-12] MEDS: TENOFOV ALAFENAM PO SCH (07:31)
[2019-06-12] MEDS: HEPARIN SODIUM,PORCINE 5,000 UNIT/ML 1 ML VIAL SQ SCH ×2 (07:32→20:04)
[2019-06-12 07:47] LABS: Albumin 3.8 g/dL (3.5-5.0); Calcium 9.1 mg/dL (8.4-10.2); Potassium 4.5 mmol/L (3.5-5.1); Total Bilirubin 0.6 mg/dL (0.2-1.3); Total Protein 6.5 g/dL (6.3-8.2)
[2019-06-12] MEDS: MUPIROCIN 2% OINT 22 GM TUBE TOPICAL SCH (08:33)
[2019-06-12] MEDS: IPRATROPIUM-ALBUTEROL 3 ML NEB INHALATION SCH ×4 (08:48→19:08)
[2019-06-12] MEDS: SYMBICORT 160-4.5 MCG INHALER INHALATION SCH ×2 (08:49→19:08)
[2019-06-12 11:40] LABS: Glucose,Whole Blood 110 mg/dL (75-99)
[2019-06-12] MEDS: SODIUM CHLORIDE 0.9% 1,000 ML IV SCH (12:25)
[2019-06-12] MEDS: guaiFENesin 600 MG TABLET.ER PO PRN (12:39)
--- NOTE | 2019-06-12 13:58 | P.PN ---
Subjective Progress Note Date: 06/12/19 Patient is seen in the emergency department on 06/09/2019 for complaints of shortness of breath and left-sided chest pain. Patient states he was feeling well over the past week and was seen on Thursday [facility] emergency department and released home same day with prescriptions for doxycycline and prednisone. Patient states he has been coughing frequently over the last few days. Patient denies any fever or chills, patient denies nausea vomiting diarrhea. Patient describes chest pain at the left lateral lower chest wall. Patient states he is unable to sleep lying down due to chest pain and shortness of breath. Patient describes pain as occurring with coughing, increased pain with laying on left side, states pain does not radiate anywhere. Patient denies any substernal chest pain, denies any pain radiating to either arm. Patient states he has not tried any other remedies at home for symptom relief. Patient is seen to have an elevated WBC count at 20.1. Patient has a known his tory of HIV and states that his most recent CD4 levels are greater than 800. Patient has history of COPD, GERD, hypertension, OA, HIV, neuropathy, sleep apnea. Patient is currently on 2 L nasal cannula in the emergency department, with oxygen saturation 90-91%. Chest x-ray completed revealing bibasilar subsegmental Dependent Atelectasis with Underlying COPD. Will consult pulmonology, will consult infectious disease for HIV management. Plans will be ordered. Sputum culture ordered. At this time patient is having some shortness of breath intermittent chest pain when laying on left side or with coughing. Patient denies any nausea vomiting or diarrhea. Patient denies any urinary burning or frequency. On 06/10/2019 patient is alert and oriented 3. Patient still complaining of left sided chest pain. CTA was completed and reviewed per pulmonary no signs of pulmonary embolism for pulmonary. Patient also evaluated by cardiology services per cardiology likely pleuritic in nature. D-dimer was negative. Troponins negative. Discussed case with pulmonary nurse practitioner. Will add Toradol for pain control. Continue Solu-Medrol for COPD exacerbation. On 06/11/2019 patient is alert and oriented X3. Heparin gtt has been d/c per pulmonary. Per nursing staff patient has been refusing heparin sq for DVT prophylaxsis. patient was educated that this is for prevention and important to prevent blood clots while in the hospital. patient verbalized understanding. Patient reports he is still having some shortness of breath. Left sided rib pain with coughing. rib xray negative for fracture. pulmonary, cardiology and ID following.+ On 06/12/2019 patient was seen and examined on the medical floor he is alert and oriented 3 in no apparent distress he is still complaining of cough and shortness of breath his oxygen is desaturating into the 80 s after walking a few steps otherwise he denies any complaints there is no fever or chills no headache or dizziness no chest pain no nausea or vomiting no abdominal pain no diarrhea no burning with urination no frequency or urgency and no hematuria Objective - Vital Signs Vital signs: Vital Signs Temp 98.3 F 06/12/19 07:00 Pulse 73 06/12/19 08:59 Resp 18 06/12/19 07:00 BP 123/73 06/12/19 07:00 Pulse Ox 89 L 06/12/19 07:00 Intake & Output 06/11/19 06/12/19 06/12/19 18:59 06:59 18:59 Intake Total 1665 Balance 1665 Intake: Oral 1665 Other: # Voids 1 3 # Bowel Movements 0 - Exam In general patient is alert and oriented 3 in no apparent distress Head normocephalic and atraumatic Neck supple no JVD no goiter Lungs diminished in bilateral bases, no wheezing or rales Heart regular rate and rhythm S1-S2, no rub or gallop Abdomen is soft nontender nondistended positive bowel sounds no hepatosplenomegaly Extremities no edema Neuro no gross focal neurological deficit - Labs CBC & Chem 7: 06/12/19 06:43 06/12/19 06:43 Labs: Abnormal Lab Results - Last 24 Hours (Table) 06/11/19 06/11/19 06/12/19 Range/Units 16:41 20:31 06:43 WBC 22.0 H (3.8-10.6) k/uL Neutrophils # 18.4 H (1.3-7.7) k/uL Monocytes # 1.7 H (0-1.0) k/uL Sodium (137-145) mmol/L BUN (9-20) mg/dL Glucose (74-99) mg/dL POC Glucose (mg/dL) 205 H 134 H (75-99) mg/dL 0106/12/19 06/12/19 Range/Units 06:43 07:09 11:37 WBC (3.8-10.6) k/uL Neutrophils # (1.3-7.7) k/uL Monocytes # (0-1.0) k/uL Sodium 134 L (137-145) mmol/L BUN 43 H (9-20) mg/dL Glucose 110 H (74-99) mg/dL POC Glucose (mg/dL) 117 H 110 H (75-99) mg/dL Microbiology - Last 24 Hours (Table) 06/11/19 16:45 Gram Stain - Preliminary Sputum Sputum Culture - Preliminary Assessment and Plan Plan: 1. Dyspnea related to COPD exacerbation. We'll continue with IV steroids and antibiotics. pulmonary services are following 2. Acute purulent tracheobronchitis. Patient maintained on doxycycline. Sputum culture has been ordered Mucinex added 3. History of HIV. Patient taking antivirals, will continue home medication. Patient states most recent CD4 level greater than 800. Infectious disease is following 4. Left-sided Chest discomfort likely pleuritic. Troponins negative, d-dimer 0.34. Chest CTA was performed and reviewed per pulmonary. Patient was started on heparin drip per pulmonary pulmonary embolism is unlikely continue treatment for COPD exacerbation. Toradol and morphine per pulmonary and pain control. heparin gtt d/c per pulmonary. Per cardiology discomfort atypical for chest pain. tele has been d/c troponins negative. 2decho has been ordered. 5. History of GERD 6. History of hypertension. Will continue home medications 7. History of nicotine dependence. Patient declined nicotine patch. 8. History of sleep apnea 9. Acute Kidney Injury. creatinine 1.30. continue to monitor closely. Hydrochlo rithiazide currently on hold. NS at 50 DVT prophylaxis heparin. GI prophylaxis pepcid. Pulmonary, cardiology and infectious disease consulted Continue Solu-Medrol and doxycycline
--- NOTE | 2019-06-12 14:32 | P.PN ---
Subjective Progress Note Date: 06/12/19 Principal diagnosis: Acute hypoxemic respiratory failure secondary to an acute exacerbation of COPD 58-year-old white male patient with history of COPD normally oxygen dependent, hypertension, current smoker, bipolar, depression, HIV well treated, neuropathy and sleep apnea. Patient presented to the emergency department on 06/09/2019 complaints of worsening shortness of breath and sharp left-sided chest pain. Patient was seen in the emergency department over the weekend on Thursday where he was seen for complaints of cough, congestion and shortness of breath. He had been sick for a period of over 1 week, he did see his PCP last week and was not given any medication, patient was also complaining of left lower rib pain which was worse with deep inspiration, patient was placed on doxycycline and prednisone, and discharged home, however his left-sided chest pain Getting worse and patient came into the emergency department for reevaluation 06/09/2019. Chest x-ray showed bibasilar subsegmental dependent atelectasis, underlying COPD. admission blood work showed a white blood cell count of 20.1, hemoglobin of 16.7, electrolytes were unremarkable, B1 is 22 creatinine was 0.93, troponins were negative 2 at less than 0.012, proBNP was 102, influenza screen was negat hodan. D-dimer was 0.34. Patient is short of breath, and his pulse ox is 89-91%, afebrile. His lungs are diminished, but not significantly bronchospastic or congested, patient was continued on doxycycline, breathing treatments, Mucinex, and IV steroids and admitted for further management. He is receiving pain medications for pain control On 06/10/2019 patient seen in follow-up on a general medical floor. He is complaining of severe pain in the left chest and he is anxious and short of breath. But lung sounds are not significantly bronchospastic or congested, today's labs have been reviewed showing white blood cell count of 22.4, hemoglobin is 16.5, sodium of 136, the rest of the electrolytes were within normal limits, B1 is 25, creatinine 0.92, troponins were less than 0.012. Patient is on 4 L of oxygen with a pulse ox of 90, afebrile, hemodynamically stable, respirations are shallow related to his left pleuritic chest pain, patient is receiving Tylenol 3 and morphine for breakthrough pain however it appears that his current pain control is ineffective. In addition patient rem ains on IV steroids, antibiotics and breathing treatments The patient is seen today 06/11/2019 in follow-up on the regular medical floor. He is currently sitting up at the bedside. Awake and alert in no acute distress. Still having significant shortness of breath with minimal exertion. Still having some ongoing left-sided chest discomfort. Rib series revealed no acute fracture. There is some pleural reaction and atelectasis left lung base. White count 28.3. Hemoglobin 15.4. Sodium 134. Potassium 4.6. Bicarb 24. Creatinine 1.30. Arterial blood gases on 32% FiO2 revealed a pO2 of 64, pCO2 39, pH 7.43. Currently maintaining O2 saturations in the low 90s on 4 L/m per nasal cannula. He's been afebrile. Hemodynamically stable. He is continued on DuoNeb inhalations, Symbicort, doxycycline. The patient is seen today 06/12/2019 in follow-up on the regular medical floor. He is currently sitting up in a chair at the bedside. Awake and alert in no acute distress. He's been up ambulating in the hallway, tolerating that well. Maintaining O2 saturations in the 90s on 3 L/m per nasal cannula. 89% on room air today. Afebrile. Hemodynamically stable. Sputum culture pending. White count 22.0. Hemoglobin 15.2. Creatinine 1.21. He is continued on DuoNeb inhalations, Symbicort, doxycycline. Objective - Vital Signs Vital signs: Vital Signs Temp 98.3 F 06/12/19 07:00 Pulse 73 06/12/19 08:59 Resp 18 06/12/19 07:00 BP 123/73 06/12/19 07:00 Pulse Ox 89 L 06/12/19 07:00 Intake & Output 06/11/19 06/12/19 06/12/19 18:59 06:59 18:59 Intake Total 1665 Balance 1665 Intake: Oral 1665 Other: # Voids 1 3 # Bowel Movements 0 - Exam GENERAL EXAM: Alert, very pleasant, 58-year-old male patient on 3 L of oxygen w ith a pulse ox of 92%, left pleuritic chest pain HEAD: Normocephalic/atraumatic. EYES: Normal reaction of pupils, equal size. Conjunctiva pink, sclera white. NOSE: Clear with pink turbinates. THROAT: No erythema or exudates. NECK: No masses, no JVD, no thyroid enlargement, no adenopathy. CHEST: No chest wall deformity. Symmetrical expansion. LUNGS: Diminished air entry with crackles in the left base CVS: Regular rate and rhythm, normal S1 and S2, no gallops, no murmurs, no rubs ABDOMEN: Soft, nontender. No hepatosplenomegaly, normal bowel sounds, no guarding or rigidity. EXTREMITIES: No clubbing, mild pretibial and ankle edema, no cyanosis, 2+ pulses and upper and lower extremities. MUSCULOSKELETAL: Muscle strength and tone normal. SPINE: No scoliosis or deformity SKIN: No rashes CENTRAL NERVOUS SYSTEM: No focal deficits, tone is normal in all 4 extremities. PSYCHIATRIC: Alert and oriented -3. Appropriate affect. Intact judgment and insight. - Labs CBC & Chem 7: 06/12/19 06:43 06/12/19 06:43 Labs: Abnormal Lab Results - Last 24 Hours (Table) 06/11/19 06/11/19 06/12/19 Range/Units 16:41 20:31 06:43 WBC 22.0 H (3.8-10.6) k/uL Neutrophils # 18.4 H (1.3-7.7) k/uL Monocytes # 1.7 H (0-1.0) k/uL Sodium (137-145) mmol/L BUN (9-20) mg/dL Glucose (74-99) mg/dL POC Glucose (mg/dL) 205 H 134 H (75-99) mg/dL 06/12/19 06/12/19 06/12/19 Range/Units 06:43 07:09 11:37 WBC (3.8-10.6) k/uL Neutrophils # (1.3-7.7) k/uL Monocytes # (0-1.0) k/uL Sodium 134 L (137-145) mmol/L BUN 43 H (9-20) mg/dL Glucose 110 H (74-99) mg/dL POC Glucose (mg/dL) 117 H 110 H (75-99) mg/dL Microbiology - Last 24 Hours (Table) 06/11/19 16:45 Gram Stain - Preliminary Sputum Sputum Culture - Preliminary Assessment and Plan Assessment: #1. Acute dyspnea and acute hypoxemic respiratory failure related to acute COPD exacerbation and pleuritic chest pain in the left side, chest x-ray showed bibasilar subsegmental dependent atelectasis, rib series revealed no acute fracture #2. History of HIV, on anti-viral with adequate CD4 counts #3. Pleuritic chest pain in the left side, d-dimer is negative, 4 sets of cardiac troponins are negative at less than 0.012, acute pulmonary embolism ruled out #4. History of GERD #5. History of hypertension #6. COPD not oxygen dependent at baseline #7. History of chronic and ongoing nicotine dependence #8. History of sleep apnea #9. Bipolar disorder Plan: The patient was seen and evaluated by Dr. Onofre. We'll continue the current treatment plan. Probable discharge in the next 24 hours. I, the cosigning physician, performed a history & physical examination of the patient. Lungs sounds with crackles in left lung base. Maintaining good O2 saturations in the 90s on 3 L/m per nasal cannula. I discussed the assessment and plan of care with my nurse practitioner, Clementina Márquez. I attest to the above note as dictated by her.
--- NOTE | 2019-06-12 16:38 | ECHOF ---
Referral Reason:sob/pulm htn MEASUREMENTS -------- HEIGHT: 160.0 cm WEIGHT: 113.9 kg BP: IVSd: 1.2 cm (0.6 - 1.1) LVIDd: 4.2 cm (3.9 - 5.3) LVPWd: 1.3 cm (0.6 - 1.1) IVSs: 1.6 cm LVIDs: 3.5 cm LVPWs: 1.8 cm LA Diam: 4.0 cm (2.7 - 3.8) Ao Diam: 3.6 cm (2.0 - 3.7) MV E Randall: 0.64 m/s MV DecT: 217 ms MV A Randall: 0.92 m/s MV E/A Ratio: 0.70 AV maxP.28 mmHg AV meanP.86 mmHg FINDINGS -------- Sinus rhythm. Morbid Obesity This was a techncally difficult study with suboptimal views, , Lumason utilized for enhancement of im ages. The left ventricular size is normal. There is mild concentric left ventricular hypertrophy. Overa ll left ventricular systolic function is normal with, an EF between 55 - 60 %. The diastolic fillin g pattern is normal for the age of the patient 10.26. The right ventricle is normal in size. The left atrial size is normal. The right atrial size is normal. 5.0mg OF Lumason UTLIZED: 2 OR MORE WALL SEGMENTS NOT VISUALIZED. The aortic valve was not well visualized. There is mild aortic stenosis present. Peak/mean gradie nt across the Aortic Valve is 21.28mmHg / 12.86mmHg. The mitral valve was not well visualized. The tricuspid valve was not well visualized. Unable to estimate RVSP due to inadequate TR jet spect ral doppler profile. The pulmonic valve was not well visualized. The aortic root size is normal. Echo free space represents a pericardial fat pad. CONCLUSIONS -------- 1. Sinus rhythm. 2. Morbid Obesity 3. This was a techncally difficult study with suboptimal views, , Lumason utilized for enhancement of images. 4. The left ventricular size is normal. 5. There is mild concentric left ventricular hypertrophy. 6. Overall left ventricular systolic function is normal with, an EF between 55 - 60 %. 7. The diastolic filling pattern is normal for the age of the patient 10.26 8. The right ventricle is normal in size. 9. The left atrial size is normal. 10. The right atrial size is normal. 11. 5.0mg OF Lumason UTLIZED: 2 OR MORE WALL SEGMENTS NOT VISUALIZED. 12. The aortic valve was not well visualized. 13. There is mild aortic stenosis present. 14. Peak/mean gradient across the Aortic Valve is 21.28mmHg / 12.86mmHg. 15. The mitral valve was not well visualized. 16. The tricuspid valve was not well visualized. 17. Unable to estimate RVSP due to inadequate TR jet spectral doppler profile. 18. The pulmonic valve was not well visualized. 19. The aortic root size is normal. 20. Echo free space represents a pericardial fat pad. ASSET PROTECTION SPECIALIST: Martha Edouard RDCS
[2019-06-12 16:52] LABS: Glucose,Whole Blood 133 mg/dL (75-99)
[2019-06-12 20:23] LABS: Glucose,Whole Blood 90 mg/dL (75-99)
[2019-06-12] MEDS: DIAZEPAM 5 MG TAB PO SCH (20:52)
[2019-06-12] MEDS: BACLOFEN 10 MG TAB PO SCH (20:52)
[2019-06-12] MEDS: traZODone HCL 50 MG TAB PO SCH (20:52)
--- NOTE | 2019-06-12 22:40 | PN ---
PROGRESS NOTE DATE OF SERVICE: 06/12/2019 REASON FOR FOLLOWUP: 1. HIV. 2. Possible tracheobronchitis. INTERVAL HISTORY: The patient is currently afebrile, has been breathing more comfortably. The patient's left sided chest pain has improved. The patient did have a cough and bringing up some sputum but no hemoptysis. No nausea, no vomiting. No abdominal pain. No diarrhea. PHYSICAL EXAMINATION: Blood pressure 119/72 with a pulse of 73. Temperature 97.6. He is 94% on 2 L nasal cannula. General description is a middle-aged male up in the chair in no distress. Respiratory system: Unlabored breathing. Decreased breath sounds at the bases. No wheeze. Heart S1, S2. Regular rate and rhythm. Abdomen soft, no tenderness. LABS: Hemoglobin is 15, white count 22,000. BUN of 43, creatinine is 1.1. Sputum culture currently pending. DIAGNOSTIC IMPRESSION AND PLAN: 1. Patient admitted to the hospital with left-sided chest pain with concern for possible chronic obstructive pulmonary disease exacerbation, tracheobronchitis. X- rays were negative for any pneumonia. The patient with no fever, white count elevated more likely steroid effect currently covered with bronchodilators and steroids. 2. The patient with HIV. Patient is currently covered with [employer], [employer] and [employer] that will be continued. CD4 count was requested. Waiting results. MMODL / IJN: [id number] /
[2019-06-13] MEDS: guaiFENesin 600 MG TABLET.ER PO PRN (03:58)
[2019-06-13] MEDS: Acetaminophen-Codeine 300-30mg TAB PO PRN ×3 (04:01→17:03)
[2019-06-13] MEDS: LEVOTHYROXINE 25 MCG TAB PO SCH (05:26)
[2019-06-13] MEDS: KETOROLAC 30 MG/ML 1 ML VIAL IVP SCH ×2 (05:28→11:35)
[2019-06-13 07:04] LABS: Glucose,Whole Blood 107 mg/dL (75-99)
[2019-06-13] MEDS: INSULIN ASPART (NovoLOG) 100 UNIT/ML VIAL SQ SCH ×4 (07:17→21:12)
[2019-06-13] MEDS: TENOFOV ALAFENAM PO SCH (07:49)
[2019-06-13] MEDS: buPROPion XL 300 MG TAB.ER.24H PO SCH (07:49)
[2019-06-13] MEDS: DOXYCYCLINE 100 MG CAP PO SCH (07:49)
[2019-06-13] MEDS: GABAPENTIN 300 MG CAP PO SCH ×3 (07:49→21:10)
[2019-06-13] MEDS: LISINOPRIL 10 MG TAB PO SCH (07:49)
[2019-06-13] MEDS: DOLUTEGRAVIR SODIUM 50 MG PO SCH (07:49)
[2019-06-13] MEDS: EMTRICITABINE PO SCH (07:49)
[2019-06-13] MEDS: DILTIAZEM CD 180 MG CAP.ER.24H PO SCH (07:49)
[2019-06-13] MEDS: INTELENCE 200 MG PO SCH ×2 (07:49→21:10)
[2019-06-13] MEDS: CITALOPRAM HYDROBROMIDE 20 MG TAB PO SCH (07:50)
[2019-06-13] MEDS: MUPIROCIN 2% OINT 22 GM TUBE TOPICAL SCH (07:50)
[2019-06-13] MEDS: HEPARIN SODIUM,PORCINE 5,000 UNIT/ML 1 ML VIAL SQ SCH ×2 (07:50→21:12)
[2019-06-13] MEDS: FAMOTIDINE 20 MG TAB PO SCH (07:50)
[2019-06-13] MEDS: IPRATROPIUM-ALBUTEROL 3 ML NEB INHALATION SCH ×4 (09:19→20:44)
[2019-06-13] MEDS: SYMBICORT 160-4.5 MCG INHALER INHALATION SCH ×2 (09:19→20:44)
[2019-06-13 09:31] LABS: Basophils # (A) 0.1 k/uL (0-0.2); Basophils % (A) 1 %; Eosinophils # (A) 0.3 k/uL (0-0.7); Eosinophils % (A) 2 %; HCT 50.9 % (39.0-53.0); HGB 16.1 gm/dL (13.0-17.5); Lymphocytes # (A) 2.1 k/uL (1.0-4.8); Lymphocytes % (A) 16 %; MCH 29.9 pg (25.0-35.0); MCHC 31.7 g/dL (31.0-37.0); MCV 94.1 fL (80.0-100.0); Mean Platelet Volume 7.3; Monocytes # (A) 1.2 k/uL (0-1.0); Monocytes % (A) 9 %; Neutrophils % (A) 70 %; Platelet Count 285 k/uL (150-450); RDW 13.5 % (11.5-15.5)
--- NOTE | 2019-06-13 09:34 | P.PN ---
Subjective Progress Note Date: 06/13/19 Patient is seen in the emergency department on 06/09/2019 for complaints of shortness of breath and left-sided chest pain. Patient states he was feeling well over the past week and was seen on Thursday [facility] emergency department and released home same day with prescriptions for doxycycline and prednisone. Patient states he has been coughing frequently over the last few days. Patient denies any fever or chills, patient denies nausea vomiting diarrhea. Patient describes chest pain at the left lateral lower chest wall. Patient states he is unable to sleep lying down due to chest pain and shortness of breath. Patient describes pain as occurring with coughing, increased pain with laying on left side, states pain does not radiate anywhere. Patient denies any substernal chest pain, denies any pain radiating to either arm. Patient states he has not tried any other remedies at home for symptom relief. Patient is seen to have an elevated WBC count at 20.1. Patient has a known hist ory of HIV and states that his most recent CD4 levels are greater than 800. Patient has history of COPD, GERD, hypertension, OA, HIV, neuropathy, sleep apnea. Patient is currently on 2 L nasal cannula in the emergency department, with oxygen saturation 90-91%. Chest x-ray completed revealing bibasilar subsegmental Dependent Atelectasis with Underlying COPD. Will consult pulmonology, will consult infectious disease for HIV management. Plans will be ordered. Sputum culture ordered. At this time patient is having some shortness of breath intermittent chest pain when laying on left side or w ith coughing. Patient denies any nausea vomiting or diarrhea. Patient denies any urinary burning or frequency. On 06/10/2019 patient is alert and oriented 3. Patient still complaining of left sided chest pain. CTA was completed and reviewed per pulmonary no signs of pulmonary embolism for pulmonary. Patient also evaluated by cardiology services per cardiology likely pleuritic in nature. D-dimer was negative. Troponins negative. Discussed case with pulmonary nurse practitioner. Will add Toradol for pain control. Continue Solu-Medrol for COPD exacerbation. On 06/11/2019 patient is alert and oriented X3. Heparin gtt has been d/c per pulmonary. Per nursing staff patient has been refusing heparin sq for DVT prophylaxsis. patient was educated that this is for prevention and important to prevent blood clots while in the hospital. patient verbalized understanding. Patient reports he is still having some shortness of breath. Left sided rib pain with coughing. rib xray negative for fracture. pulmonary, cardiology and ID following. On 06/12/2019 patient was seen and examined on the medical floor he is alert and oriented 3 in no apparent distress he is still complaining of cough and shortness of breath his oxygen is desaturating into the 80 s after walking a few steps otherwise he denies any complaints there is no fever or chills no headache or dizziness no chest pain no nausea or vomiting no abdominal pain no diarrhea no burning with urination no frequency or urgency and no hematuria 06/13/2019 patient is alert and oriented 3. Patient reports slight improvement in regards to shortness of breath. Patient remains on 3 L nasal cannula. Recommend attempting to wean per nursing staff. Patient ambulating encourage increased activity. Patient requesting nicotine patch that he had been declining. Patient educated on the importance of complete smoking cessation up on discharge. IV steroids have been DC'd per pulmonary. We'll continue to monitor patient for an additional 24 hours and attempt to wean oxygen anticipate possible discharge home tomorrow Objective - Vital Signs Vital signs: Vital Signs Temp 97.7 F 06/13/19 07:00 Pulse 82 06/13/19 09:22 Resp 20 06/13/19 07:00 BP 126/87 06/13/19 07:00 Pulse Ox 93 L 06/13/19 09:22 Intake & Output 06/12/19 06/13/19 06/13/19 18:59 06:59 18:59 Other: Voiding Method Toilet Toilet # Voids 2 1 - Exam Head normocephalic Neck supple Lungs diminished in bilateral bases, no wheezing or rales Heart regular rate and rhythm S1-S2, no rub or gallop Abdomen is soft nontender nondistended positive bowel sounds no hepatosplenomegaly Extremities no edema Neuro alert and orientated to 3 - Labs CBC & Chem 7: 06/12/19 06:43 06/12/19 06:43 Labs: Abnormal Lab Results - Last 24 Hours (Table) 06/12/19 06/12/19 06/13/19 Range/Units 11:37 16:50 07:00 POC Glucose (mg/dL) 110 H 133 H 107 H (75-99) mg/dL Microbiology - Last 24 Hours (Table) 06/11/19 16:45 Gram Stain - Final Sputum Sputum Culture - Final Strep agalactiae - (group b) Assessment and Plan Assessment: 1. Dyspnea related to COPD exacerbation. We'll continue with IV steroids and antibiotics. pulmonary services are following 2. Acute purulent tracheobronchitis. Patient maintained on doxycycline. Sputum culture has been ordered Mucinex added 3. History of HIV. Patient taking antivirals, will continue home medication. Patient states most recent CD4 level greater than 800. Infectious disease is following 4. Left-sided Chest discomfort likely pleuritic. Troponins negative, d-dimer 0.34. Chest CTA was performed and reviewed per pulmonary. Patient was started on heparin drip per pulmonary pulmonary embolism is unlikely continue treatment for COPD exacerbation. Toradol and morphine per pulmonary and pain control. heparin gtt d/c per pulmonary. Per cardiology discomfort atypical for chest pain. tele has been d/c troponins negative. 2decho completed showing an EF of 55-60%. Coronary embolism ruled out per pulmonary. Cardiac etiology also ruled out per cardiology services. 5. History of GERD 6. History of hypertension. Will continue home medications 7. History of nicotine dependence. Nicotine patch has been ordered. Patient educated on the importance of complete smoking cessation upon discharge. 8. History of sleep apnea 9. Acute Kidney Injury. creatinine 1.30. continue to monitor closely. Hydrochlorithiazide currently on hold. NS at 50. Creatinine is improving. DVT prophylaxis heparin. GI prophylaxis pepcid. Pulmonary, cardiology and infectious disease consulted Anticipate discharge in the next 24-48 hours Continue to wean oxygen over the next 24 hours I performed an examination of the patient and discussed their management with the Nurse Practitioner. I have reviewed the Nurse Practitioner's notes and agree with the documented findings and plan of care
[2019-06-13 09:51] LABS: Albumin 3.8 g/dL (3.5-5.0); Calcium 8.8 mg/dL (8.4-10.2); Potassium 4.6 mmol/L (3.5-5.1); Total Bilirubin 0.8 mg/dL (0.2-1.3); Total Protein 6.3 g/dL (6.3-8.2)
[2019-06-13] MEDS: SODIUM CHLORIDE 0.9% 1,000 ML IV SCH (10:48)
[2019-06-13] MEDS: NICOTINE 14MG/24HR PATCH TRANSDERM SCH (11:36)
[2019-06-13 11:50] LABS: Glucose,Whole Blood 133 mg/dL (75-99)
--- NOTE | 2019-06-13 15:21 | P.PN ---
Subjective Progress Note Date: 06/13/19 Principal diagnosis: 58-year-old white male patient with history of COPD normally oxygen dependent, hypertension, current smoker, bipolar, depression, HIV well treated, neuropathy and sleep apnea. Patient presented to the emergency department on 06/09/2019 complaints of worsening shortness of breath and sharp left-sided chest pain. Patient was seen in the emergency department over the weekend on Thursday where he was seen for complaints of cough, congestion and shortness of breath. He had been sick for a period of over 1 week, he did see his PCP last week and was not given any medication, patient was also complaining of left lower rib pain which was worse with deep inspiration, patient was placed on doxycycline and prednisone, and discharged home, however his left-sided chest pain Getting worse and patient came into the emergency department for reevaluation 06/09/2019. Chest x-ray showed bibasilar subsegmental dependent atelectasis, underlying COPD. admission blood work showed a white blood cell count of 20.1, hemoglobin of 16.7, electrolytes were unremarkable, B1 is 22 creatinine was 0.93, troponins were negative 2 at less than 0.012, proBNP was 102, influenza screen was negative. D-dimer was 0.34. Patient is short of breath, and his pulse ox is 89-91%, afebrile. His lungs are diminished, but not significantly bronchospastic or congested, patient was continued on doxycycline, breathing treatments, Mucinex, and IV steroids and admitted for further management. He is receiving pain medications for pain control On 06/10/2019 patient seen in follow-up on a general medical floor. He is complaining of severe pain in the left chest and he is anxious and short of breath. But lung sounds are not significantly bronchospastic or congested, today's labs have been reviewed showing white blood cell count of 22.4, hemoglobin is 16.5, sodium of 136, the rest of the electrolytes were within normal limits, B1 is 25, creatinine 0.92, troponins were less than 0.012. Patient is on 4 L of oxygen with a pulse ox of 90, afebrile, hemodynamically stable, respirations are shallow related to his left pleuritic chest pain, patient is receiving Tylenol 3 and morphine for breakthrough pain however it appears that his current pain control is ineffective. In addition patient remains on IV steroids, antibiotics and breathing treatments 58-year-old white male patient with history of COPD normally oxygen dependent, hypertension, current smoker, bipolar, depression, HIV well treated, neuropathy and sleep apnea. Patient presented to the emergency department on 06/09/2019 complaints of worsening shortness of breath and sharp left-sided chest pain. Patient was seen in the emergency department over the weekend on Thursday where he was seen for complaints of cough, congestion and shortness of breath. He had been sick for a period of over 1 week, he did see his PCP last week and was not given any medication, patient was also complaining of left lower rib pain which was worse with deep inspiration, patient was placed on doxycycline and prednisone, and discharged home, however his left-sided chest pain Getting worse and patient came into the emergency department for reevaluation 06/09/2019. Chest x-ray showed bibasilar subsegmental dependent atelectasis, underlying COPD. admission blood work showed a white blood cell count of 20.1, hemoglobin of 16.7, electrolytes were unremarkable, B1 is 22 creatinine was 0.93, troponins were negative 2 at less than 0.012, proBNP was 102, influenza screen was negative. D-dimer was 0.34. Patient is short of breath, and his pulse ox is 89-91%, afebrile. His lungs are diminished, but not significantly bro nchospastic or congested, patient was continued on doxycycline, breathing treatments, Mucinex, and IV steroids and admitted for further management. He is receiving pain medications for pain control On 06/10/2019 patient seen in follow-up on a general medical floor. He is complaining of severe pain in the left chest and he is anxious and short of breath. But lung sounds are not significantly bronchospastic or congested, today's labs have been reviewed showing white blood cell count of 22.4, h emoglobin is 16.5, sodium of 136, the rest of the electrolytes were within normal limits, B1 is 25, creatinine 0.92, troponins were less than 0.012. Patient is on 4 L of oxygen with a pulse ox of 90, afebrile, hemodynamically stable, respirations are shallow related to his left pleuritic chest pain, patient is receiving Tylenol 3 and morphine for breakthrough pain however it appears that his current pain control is ineffective. In addition patient remains on IV steroids, antibiotics and breathing treatments The patient is seen today 06/11/2019 in follow-up on the regular medical floor. He is currently sitting up at the bedside. Awake and alert in no acute distress. Still having significant shortness of breath with minimal exertion. Still having some ongoing left-sided chest discomfort. Rib series revealed no acute fracture. There is some pleural reaction and atelectasis left lung base. White count 28.3. Hemoglobin 15.4. Sodium 134. Potassium 4.6. Bicarb 24. Creatinine 1.30. Arterial blood gases on 32% FiO2 revealed a pO2 of 64, pCO2 39, pH 7.43. Currently maintaining O2 saturations in the low 90s on 4 L/m per nasal cannula. He's been afebrile. Hemodynamically stable. He is continued on DuoNeb inhalations, Symbicort, doxycycline. The patient is seen today 06/12/2019 in follow-up on the regular medical floor. He is currently sitting up in a chair at the bedside. Awake and alert in no acute distress. He's been up ambulating in the hallway, tolerating that well. Maintaining O2 saturations in the 90s on 3 L/m per nasal cannula. 89% on room air today. Afebrile. Hemodynamically stable. Sputum culture pending. White count 22.0. Hemoglobin 15.2. Creatinine 1.21. He is continued on DuoNeb inhalations, Symbicort, doxycycline. On 06/13/2019 patient and in follow-up on general medical floor, he is breathing easier, his left-sided chest pain subsided, although still there especially with episodes of coughing. his pain is much better controlled, he remains on steroids, antibiotics and bronchodilators, is sounding clear on today's exam. Objective - Vital Signs Vital signs: Vital Signs Temp 98.0 F 06/13/19 14:43 Pulse 91 06/13/19 14:43 Resp 15 06/13/19 14:43 BP 127/89 06/13/19 14:43 Pulse Ox 93 L 06/13/19 14:43 Intake & Output 06/12/19 06/13/19 06/13/19 18:59 06:59 18:59 Intake Total 780 Balance 780 Intake: Oral 780 Other: Voiding Method Toilet Toilet # Voids 2 1 2 # Bowel Movements 0 - Exam GENERAL EXAM: Alert, very pleasant, 58-year-old short statured white male on 2 L of oxygen with a pulse ox of 89-91%, in no acute distress from left pleuritic chest pain HEAD: Normocephalic/atraumatic. EYES: Normal reaction of pupils, equal size. Conjunctiva pink, sclera white. NOSE: Clear with pink turbinates. THROAT: No erythema or exudates. NECK: No masses, no JVD, no thyroid enlargement, no adenopathy. CHEST: No chest wall deformity. Symmetrical expansion. LUNGS: diminished air entry with no crackles, wheeze, rhonchi or dullness. CVS: Regular rate and rhythm, normal S1 and S2, no gallops, no murmurs, no rubs ABDOMEN: Soft, nontender. No hepatosplenomegaly, normal bowel sounds, no guarding or rigidity. EXTREMITIES: No clubbing, mild pretibial and ankle edema, no cyanosis, 2+ pulses and upper and lower extremities. MUSCULOSKELETAL: Muscle strength and tone normal. SPINE: No scoliosis or deformity SKIN: No rashes CENTRAL NERVOUS SYSTEM: Alert and oriented -3. No focal deficits, tone is normal in all 4 extremities. PSYCHIATRIC: Alert and oriented -3. Appropriate affect. Intact judgment and insight. - Labs CBC & Chem 7: 06/13/19 06:07 06/13/19 06:07 Labs: Abnormal Lab Results - Last 24 Hours (Table) 06/12/19 06/13/19 06/13/19 Range/Units 16:50 06:07 06:07 WBC 13.0 H (3.8-10.6) k/uL Neutrophils # 9.0 H (1.3-7.7) k/uL Monocytes # 1.2 H (0-1.0) k/uL BUN 36 H (9-20) mg/dL POC Glucose (mg/dL) 133 H (75-99) mg/dL ALT 50 H (4-49) U/L 06/13/19 06/13/19 Range/Units 07:00 11:38 WBC (3.8-10.6) k/uL Neutrophils # (1.3-7.7) k/uL Monocytes # (0-1.0) k/uL BUN (9-20) mg/dL POC Glucose (mg/dL) 107 H 133 H (75-99) mg/dL ALT (4-49) U/L Microbiology - Last 24 Hours (Table) 06/11/19 16:45 Gram Stain - Final Sputum Sputum Culture - Final Strep agalactiae - (group b) Assessment and Plan Plan: Assessment: #1. Acute dyspnea and acute hypoxemic respiratory failure related to acute COPD exacerbation and pleuritic chest pain in the left side, chest x-ray showed bibasilar subsegmental dependent atelectasis #2. History of HIV, on anti-viral with adequate CD4 counts #3. Pleuritic chest pain in the left side, d-dimer is negative, 4 sets of cardiac troponins are negative at less than 0.012, acute pulmonary embolism ruled out #4. History of GERD #5. History of hypertension #6. COPD not oxygen dependent at baseline #7. History of chronic and ongoing nicotine dependence #8. History of sleep apnea #9. Bipolar disorder Plan: from pulmonary perspective patient is much improved, and can be considered for discharge home once cleared by primary care service. Breathing much easier, no rhonchi, no wheezing, wean FiO2, increase activity as tolerated, anticipate further improvement and didn't spend discharge home next 24 hours. I performed a history & physical examination of the patient and discussed their management with my nurse practitioner, Angela Barksdale. I reviewed the nurse practitioner's note and agree with the documented findings and plan of care. Lung sounds are positive for diminished breath sounds. The findings and the impression was discussed with the patient. I attest to the documentation by the nurse practitioner. Time with Patient: Less than 30
--- NOTE | 2019-06-13 16:04 | XR ---
EXAMINATION TYPE: XR chest 2V DATE OF EXAM: 06/13/2019 COMPARISON: Chest x-ray 06/09/2019 HISTORY: Difficulty breathing TECHNIQUE: Frontal and lateral views of the chest are obtained. FINDINGS: There is patchy subsegmental basilar atelectatic change or scarring. No pneumothorax or ev ident effusion. Increased AP diameter chest and flattening of hemidiaphragms. The cardiac silhouette size is within normal limits. The osseous structures are intact. Postop changes in the cervical spi ne. Prominent lung volumes are again seen. IMPRESSION: Probable basilar atelectasis. Emphysema.
[2019-06-13 16:51] LABS: Glucose,Whole Blood 101 mg/dL (75-99)
--- NOTE | 2019-06-13 17:32 | PN ---
PROGRESS NOTE DATE OF SERVICE: 06/13/2019 REASON FOR FOLLOWUP: 1. HIV. 2. Positive sputum culture. INTERVAL HISTORY: The patient is currently afebrile, has been breathing comfortably. Pain to the left- sided chest has decreased in intensity. No nausea, vomiting, abdominal pain or diarrhea. PHYSICAL EXAMINATION: Blood pressure 127/87 with a pulse of 91. Temperature of 98. He is 93% on 3 L nasal cannula. General description is a middle-aged male up in the chair in no distress. RESPIRATORY SYSTEM: Unlabored breathing with decreased breath sounds at the base. No wheeze. HEART: S1, S2. Regular rate and rhythm. ABDOMEN: Soft. No tenderness. LABS: Hemoglobin 16.1, white count 13, BUN of 36, creatinine 1.20. Sputum Streptococcus agalactiae. DIAGNOSTIC IMPRESSION AND PLAN: 1. Patient admitted to hospital with left-sided chest pain. Patient has been ruled out for PE. Rib x-ray was negative for any fracture, either. Patient's culture now positive for Streptococcus agalactiae. Will give a dose of Rocephin 2 grams x1 and check a chest x-ray to see if there is need for any further antibiotic therapy. 2. Human immunodeficiency virus. To continue with his antiretroviral and monitor his clinical course closely. MMODL / IJN: [id number] / MTDD
[2019-06-13 21:09] LABS: Glucose,Whole Blood 124 mg/dL (75-99)
[2019-06-13] MEDS: DIAZEPAM 5 MG TAB PO SCH (21:10)
[2019-06-13] MEDS: BACLOFEN 10 MG TAB PO SCH (21:10)
[2019-06-13] MEDS: traZODone HCL 50 MG TAB PO SCH (21:10)
[2019-06-14] MEDS: LEVOTHYROXINE 25 MCG TAB PO SCH (03:14)
[2019-06-14] MEDS: Acetaminophen-Codeine 300-30mg TAB PO PRN ×2 (03:14→09:14)
[2019-06-14 07:00] LABS: Glucose,Whole Blood 97 mg/dL (75-99)
[2019-06-14] MEDS: INSULIN ASPART (NovoLOG) 100 UNIT/ML VIAL SQ SCH (07:10)
[2019-06-14 07:35] LABS: Basophils # (A) 0.1 k/uL (0-0.2); Basophils % (A) 1 %; Eosinophils # (A) 0.6 k/uL (0-0.7); Eosinophils % (A) 5 %; HCT 47.6 % (39.0-53.0); HGB 15.8 gm/dL (13.0-17.5); Lymphocytes # (A) 1.3 k/uL (1.0-4.8); Lymphocytes % (A) 10 %; MCH 30.9 pg (25.0-35.0); MCHC 33.2 g/dL (31.0-37.0); Mean Platelet Volume 6.6; Monocytes # (A) 0.9 k/uL (0-1.0); Monocytes % (A) 7 %; Neutrophils # (A) 9.8 k/uL (1.3-7.7); Neutrophils % (A) 75 %; Platelet Count 275 k/uL (150-450); RBC 5.12 m/uL (4.30-5.90); RDW 13.3 % (11.5-15.5)
[2019-06-14 07:49] LABS: Albumin 3.6 g/dL (3.5-5.0); Calcium 8.9 mg/dL (8.4-10.2); Potassium 4.8 mmol/L (3.5-5.1); Total Bilirubin 0.7 mg/dL (0.2-1.3); Total Protein 6.3 g/dL (6.3-8.2)
[2019-06-14] MEDS: DOLUTEGRAVIR SODIUM 50 MG PO SCH (07:55)
[2019-06-14] MEDS: EMTRICITABINE PO SCH (07:55)
[2019-06-14] MEDS: GABAPENTIN 300 MG CAP PO SCH (07:55)
[2019-06-14] MEDS: buPROPion XL 300 MG TAB.ER.24H PO SCH (07:55)
[2019-06-14] MEDS: LISINOPRIL 10 MG TAB PO SCH (07:55)
[2019-06-14] MEDS: FAMOTIDINE 20 MG TAB PO SCH (07:55)
[2019-06-14] MEDS: NICOTINE 14MG/24HR PATCH TRANSDERM SCH (07:55)
[2019-06-14] MEDS: TENOFOV ALAFENAM PO SCH (07:55)
[2019-06-14] MEDS: CITALOPRAM HYDROBROMIDE 20 MG TAB PO SCH (07:55)
[2019-06-14] MEDS: MUPIROCIN 2% OINT 22 GM TUBE TOPICAL SCH (07:56)
[2019-06-14] MEDS: INTELENCE 200 MG PO SCH (07:56)
[2019-06-14] MEDS: DILTIAZEM CD 180 MG CAP.ER.24H PO SCH (07:56)
[2019-06-14] MEDS: HEPARIN SODIUM,PORCINE 5,000 UNIT/ML 1 ML VIAL SQ SCH (07:56)
[2019-06-14] MEDS: IPRATROPIUM-ALBUTEROL 3 ML NEB INHALATION SCH (09:38)
[2019-06-14] MEDS: SYMBICORT 160-4.5 MCG INHALER INHALATION SCH (09:38)
[2019-06-14 09:40] VITALS: BP 129/80; RESP 17; TEMP 97.9
[2019-06-14 09:54] VITALS: PULSE 80
--- NOTE | 2019-06-14 10:38 | P.DS ---
Providers Date of admission: 06/09/19 11:35 Expected date of discharge: 06/14/19 Attending physician: Daniela Rojo Consults: 06/09/19 11:49 Consult Physician Routine Consulting Provider: Janelle Choe Consult Reason/Comments: established patient, copd Do you want consulting provider notified?: Yes 06/09/19 13:56 Consult Physician Routine Consulting Provider: Hoda Agudelo Consult Reason/Comments: HIV on anitvirals Do you want consulting provider notified?: Yes 06/09/19 13:57 Consult Physician Routine Consulting Provider: Mina Wallace Consult Reason/Comments: chest pain Do you want consulting provider notified?: Yes Primary care physician: Daniela Alia [facility] Course: discharge diagnosis 1. Dyspnea related to COPD exacerbation. We'll continue with IV steroids and antibiotics. IV steroids have been DC'd. Patient has been cleared for discharge from pulmonary standpoint. Patient will be DC'd home on prednisone taper 2. Acute purulent tracheobronchitis. Patient maintained on doxycycline. Sputum culture has been ordered Mucinex added. Urine culture positive for strep Agalactiae. Repeat chest x-ray completed showing probable basal atelectasis. Emphysema. Discussed case with infectious disease Dr. Agudelo recommend patient be discharged on Ceftin 500 twice a day for 5 days 3. History of HIV. Patient taking antivirals, will continue home medication. Patient states most recent CD4 level greater than 800. Infectious disease is following 4. Left-sided Chest discomfort likely pleuritic. Troponins negative, d-dimer 0.34. Chest CTA was performed and reviewed per pulmonary. Patient was started on heparin drip per pulmonary pulmonary embolism is unlikely continue treatment for COPD exacerbation. Toradol and morphine per pulmonary and pain control. heparin gtt d/c per pulmonary. Per cardiology discomfort atypical for chest pain. tele has been d/c troponins negative. 2decho completed showing an EF of 55-60%. Coronary embolism ruled out per pulmonary. Cardiac etiology also ruled out per cardiology services. 5. History of GERD 6. History of hypertension. Will continue home medications 7. History of nicotine dependence. Nicotine patch has been ordered. Patient educated on the importance of complete smoking cessation upon discharge. Nicotine patch ordered upon discharge 8. History of sleep apnea 9. Acute Kidney Injury. creatinine 1.30. continue to monitor closely. Hydrochlorithiazide currently on hold. NS at 50. Creatinine is improving. Resolved. Hydrochlorothiazide resumed hospital course Patient is seen in the emergency department on 06/09/2019 for complaints of shortness of breath and left-sided chest pain. Patient states he was feeling well over the past week and was seen on Thursday [facility] emergency department and released home same day with prescriptions for doxycycline and prednisone. Patient states he has been coughing frequently over the last few days. Patient denies any fever or chills, patient denies nausea vomiting diarrhea. Patient describes chest pain at the left lateral lower chest wall. Patient states he is unable to sleep lying down due to chest pain and shortness of breath. Patient describes pain as occurring with coughing, increased pain with laying on left side, states pain does not radiate anywhere. Patient denies any substernal chest pain, denies any pain radiating to either arm. Patient states he has not tried any other remedies at home for symptom relief. Patient is seen to have an elevated WBC count at 20.1. Patient has a known history of HIV and states that his most recent CD4 levels are greater than 800. Patient has history of COPD, GERD, hypertension, OA, HIV, neuropathy, sleep apnea. Patient is currently on 2 L nasal cannula in the emergency department, with oxygen saturation 90-91%. Chest x-ray completed revealing bibasilar subsegmental Dependent Atelectasis with Underlying COPD. Will consult pulmonology, will consult infectious disease for HIV management. Plans will be ordered. Sputum culture ordered. At this time patient is having some shortness of breath intermittent chest pain when laying on left side or with coughing. Patient denies any nausea vomiting or diarrhea. Patient denies any urinary burning or frequency. On 06/10/2019 patient is alert and oriented 3. Patient still complaining of left sided chest pain. CTA was completed and reviewed per pulmonary no signs of pulmonary embolism for pulmonary. Patient also evaluated by cardiology services per cardiology likely pleuritic in nature. D-dimer was negative. Troponins negative. Discussed case with pulmonary nurse practitioner. Will add Toradol for pain control. Continue Solu-Medrol for COPD exacerbation. On 06/11/2019 patient is alert and oriented X3. Heparin gtt has been d/c per pulmonary. Per nursing staff patient has been refusing heparin sq for DVT prophylaxsis. patient was educated that this is for prevention and important to prevent blood clots while in the hospital. patient verbalized understanding. Patient reports he is still having some shortness of breath. Left sided rib pain with coughing. rib xray negative for fracture. pulmonary, cardiology and ID following. On 06/12/2019 patient was seen and examined on the medical floor he is alert and oriented 3 in no apparent distress he is still complaining of cough and shortness of breath his oxygen is desaturating into the 80 s after walking a few steps otherwise he denies any complaints there is no fever or chills no headache or dizziness no chest pain no nausea or vomiting no abdominal pain no diarrhea no burning with urination no frequency or urgency and no hematuria 06/13/2019 patient is alert and oriented 3. Patient reports slight improvement in regards to shortness of breath. Patient remains on 3 L nasal cannula. Recommend attempting to wean per nursing staff. Patient ambulating encourage increased activity. Patient requesting nicotine patch that he had been declining. Patient educated on the importance of complete smoking cessation upon discharge. IV steroids have been DC'd per pulmonary. We'll continue to monitor patient for an additional 24 hours and attempt to wean oxygen anticipate possible discharge home tomorrow On 06/14/2019 patient is alert and oriented 3 patient feels much improved and eager to go home. Patient has been on room air ambulating maintaining oxygen saturation. Patient has been cleared for discharge from pulmonary standpoint. Sputum culture reviewed per infectious disease chest x-ray also reviewed. Patient to be DC'd home on Ceftin 500 twice a day for 5 days per ID recommendation. At this time patient denies chest pain or shortness breath. Patient denies nausea vomiting or diarrhea. Patient denies any urinary burning or frequency I performed an examination of the patient and discussed their management with the Nurse Practitioner. I have reviewed the Nurse Practitioner's notes and agree with the documented findings and plan of care Patient Condition at Discharge: Stable Plan - Discharge Summary Discharge Rx Participant: No New Discharge Prescriptions: New Nicotine 14Mg/24Hr Patch [Habitrol] 1 patch TRANSDERM DAILY 30 Days #30 patch guaiFENesin [Mucinex] 600 mg PO Q12HR PRN 7 Days #14 tablet.er PRN Reason: Cough predniSONE 10 mg PO DIRECTED 10 Days #15 tab Cefuroxime Axetil [Ceftin] 500 mg PO BID 5 Days #10 tab predniSONE 10 mg PO DIRECTED 10 Days #15 tab Continue Quinapril HCl [Accupril] 10 mg PO DAILY Dolutegravir Sodium [Tivicay] 50 mg PO DAILY Levothyroxine Sodium [Synthroid] 25 mcg PO DAILY Hydrochlorothiazide [Hydrodiuril] 25 mg PO DAILY Gabapentin [Neurontin] 300 mg PO TID Emtricitabine/Tenofov Alafenam [Descovy 200-25 mg Tablet] 1 tab PO DAILY traZODone HCL 150 mg PO HS buPROPion HCL [Wellbutrin XL] 300 mg PO DAILY Mupirocin 2% Oint [Bactroban 2% Oint] 1 applic TOPICAL DAILY Umeclidinium [place] [Incruse Ellipta] 1 puff INHALATION RT-DAILY Citalopram Hydrobromide [CeleXA] 40 mg PO DAILY Baclofen [Lioresal] 10 mg PO HS Intelence 200mg 200 mg PO BID Diltiazem HCl [Diltiazem 24Hr ER] 360 mg PO DAILY Albuterol Inhaler [Ventolin Hfa Inhaler] 2 puff INHALATION RT-Q4H PRN PRN Reason: Shortness Of Breath Acetaminophen-Codeine 300-30mg [Tylenol w/codeine #3] 1 tab PO Q6H PRN PRN Reason: Pain Ipratropium [place] 0.06%Nasal [Atrovent Nasal 0.06%] 1 spray EA NOSTRIL BID Discontinued Doxycycline Monohydrate [Monodox] 100 mg PO Q12HR #20 cap predniSONE 50 mg PO DAILY #5 tab Discharge Medication List Quinapril HCl [Accupril] 10 mg PO DAILY 05/31/16 [History] Dolutegravir Sodium [Tivicay] 50 mg PO DAILY 09/01/18 [History] Emtricitabine/Tenofov Alafenam [Descovy 200-25 mg Tablet] 1 tab PO DAILY 09/01/18 [History] Gabapentin [Neurontin] 300 mg PO TID 09/01/18 [History] Hydrochlorothiazide [Hydrodiuril] 25 mg PO DAILY 09/01/18 [History] Levothyroxine Sodium [Synthroid] 25 mcg PO DAILY 09/01/18 [History] buPROPion HCL [Wellbutrin XL] 300 mg PO DAILY 09/01/18 [History] traZODone HCL 150 mg PO HS 09/01/18 [History] Albuterol Inhaler [Ventolin Hfa Inhaler] 2 puff INHALATION RT-Q4H PRN 03/31/19 [History] Baclofen [Lioresal] 10 mg PO HS 03/31/19 [History] Citalopram Hydrobromide [CeleXA] 40 mg PO DAILY 03/31/19 [History] Diltiazem HCl [Diltiazem 24Hr ER] 360 mg PO DAILY 03/31/19 [History] Intelence 200mg 200 mg PO BID 03/31/19 [History] Mupirocin 2% Oint [Bactroban 2% Oint] 1 applic TOPICAL DAILY 03/31/19 [History] Umeclidinium [place] [Incruse Ellipta] 1 puff INHALATION RT-DAILY 03/31/19 [History] Acetaminophen-Codeine 300-30mg [Tylenol w/codeine #3] 1 tab PO Q6H PRN 06/09/19 [History] Ipratropium [place] 0.06%Nasal [Atrovent Nasal 0.06%] 1 spray EA NOSTRIL BID 06/09/19 [History] Cefuroxime Axetil [Ceftin] 500 mg PO BID 5 Days #10 tab 06/14/19 [Rx] Nicotine 14Mg/24Hr Patch [Habitrol] 1 patch TRANSDERM DAILY 30 Days #30 patch 06/14/19 [Rx] guaiFENesin [Mucinex] 600 mg PO Q12HR PRN 7 Days #14 tablet.er 06/14/19 [Rx] predniSONE 10 mg PO DIRECTED 10 Days #15 tab 06/14/19 [Rx] predniSONE 10 mg PO DIRECTED 10 Days #15 tab 06/14/19 [Rx] Follow up Appointment(s)/Referral(s): Roni Onofre MD [STAFF PHYSICIAN] - 06/22/19 1:15 pm Daniela Rojo MD [Primary Care Provider] - 06/17/19 10:15 am [facility] Visiting Nurse, [NON-STAFF] - Patient Instructions/Handouts: COPD (Chronic Obstructive Pulmonary Disease) (DC), Chest Wall Pain (ED) Activity/Diet/Wound Care/Special Instructions: activity as tolerated diet heart healthy Discharge Disposition: HOME WITH HOME HEALTH SERVICES
--- NOTE | 2019-06-14 11:43 | P.PN ---
Subjective Progress Note Date: 06/14/19 Principal diagnosis: 58-year-old white male patient with history of COPD normally oxygen dependent, hypertension, current smoker, bipolar, depression, HIV well treated, neuropathy and sleep apnea. Patient presented to the emergency department on 06/09/2019 complaints of worsening shortness of breath and sharp left-sided chest pain. Patient was seen in the emergency department over the weekend on Thursday where he was seen for complaints of cough, congestion and shortness of breath. He had been sick for a period of over 1 week, he did see his PCP last week and was not given any medication, patient was also complaining of left lower rib pain which was worse with deep inspiration, patient was placed on doxycycline and prednisone, and discharged home, however his left-sided chest pain Getting worse and patient came into the emergency department for reevaluation 06/09/2019. Chest x-ray showed bibasilar subsegmental dependent atelectasis, underlying COPD. admission blood work showed a white blood cell count of 20.1, hemoglobin of 16.7, electrolytes were unremarkable, B1 is 22 creatinine was 0.93, troponins were negative 2 at less than 0.012, proBNP was 102, influenza screen was negative. D-dimer was 0.34. Patient is short of breath, and his pulse ox is 89-91%, afebrile. His lungs are diminished, but not significantly bronchospastic or congested, patient was continued on doxycycline, breathing treatments, Mucinex, and IV steroids and admitted for further management. He is receiving pain medications for pain control On 06/10/2019 patient seen in follow-up on a general medical floor. He is complaining of severe pain in the left chest and he is anxious and short of breath. But lung sounds are not significantly bronchospastic or congested, today's labs have been reviewed showing white blood cell count of 22.4, hemoglobin is 16.5, sodium of 136, the rest of the electrolytes were within normal limits, B1 is 25, creatinine 0.92, troponins were less than 0.012. Patient is on 4 L of oxygen with a pulse ox of 90, afebrile, hemodynamically stable, respirations are shallow related to his left pleuritic chest pain, patient is receiving Tylenol 3 and morphine for breakthrough pain however it appears that his current pain control is ineffective. In addition patient remains on IV steroids, antibiotics and breathing treatments 58-year-old white male patient with history of COPD normally oxygen dependent, hypertension, current smoker, bipolar, depression, HIV well treated, neuropathy and sleep apnea. Patient presented to the emergency department on 06/09/2019 complaints of worsening shortness of breath and sharp left-sided chest pain. Patient was seen in the emergency department over the weekend on Thursday where he was seen for complaints of cough, congestion and shortness of breath. He had been sick for a period of over 1 week, he did see his PCP last week and was not given any medication, patient was also complaining of left lower rib pain which was worse with deep inspiration, patient was placed on doxycycline and prednisone, and discharged home, however his left-sided chest pain Getting worse and patient came into the emergency department for reevaluation 06/09/2019. Chest x-ray showed bibasilar subsegmental dependent atelectasis, underlying COPD. admission blood work showed a white blood cell count of 20.1, hemoglobin of 16.7, electrolytes were unremarkable, B1 is 22 creatinine was 0.93, troponins were negative 2 at less than 0.012, proBNP was 102, influenza screen was negative. D-dimer was 0.34. Patient is short of breath, and his pulse ox is 89-91%, afebrile. His lungs are diminished, but not significantly bro nchospastic or congested, patient was continued on doxycycline, breathing treatments, Mucinex, and IV steroids and admitted for further management. He is receiving pain medications for pain control On 06/10/2019 patient seen in follow-up on a general medical floor. He is complaining of severe pain in the left chest and he is anxious and short of breath. But lung sounds are not significantly bronchospastic or congested, today's labs have been reviewed showing white blood cell count of 22.4, h emoglobin is 16.5, sodium of 136, the rest of the electrolytes were within normal limits, B1 is 25, creatinine 0.92, troponins were less than 0.012. Patient is on 4 L of oxygen with a pulse ox of 90, afebrile, hemodynamically stable, respirations are shallow related to his left pleuritic chest pain, patient is receiving Tylenol 3 and morphine for breakthrough pain however it appears that his current pain control is ineffective. In addition patient remains on IV steroids, antibiotics and breathing treatments The patient is seen today 06/11/2019 in follow-up on the regular medical floor. He is currently sitting up at the bedside. Awake and alert in no acute distress. Still having significant shortness of breath with minimal exertion. Still having some ongoing left-sided chest discomfort. Rib series revealed no acute fracture. There is some pleural reaction and atelectasis left lung base. White count 28.3. Hemoglobin 15.4. Sodium 134. Potassium 4.6. Bicarb 24. Creatinine 1.30. Arterial blood gases on 32% FiO2 revealed a pO2 of 64, pCO2 39, pH 7.43. Currently maintaining O2 saturations in the low 90s on 4 L/m per nasal cannula. He's been afebrile. Hemodynamically stable. He is continued on DuoNeb inhalations, Symbicort, doxycycline. The patient is seen today 06/12/2019 in follow-up on the regular medical floor. He is currently sitting up in a chair at the bedside. Awake and alert in no acute distress. He's been up ambulating in the hallway, tolerating that well. Maintaining O2 saturations in the 90s on 3 L/m per nasal cannula. 89% on room air today. Afebrile. Hemodynamically stable. Sputum culture pending. White count 22.0. Hemoglobin 15.2. Creatinine 1.21. He is continued on DuoNeb inhalations, Symbicort, doxycycline. On 06/13/2019 patient and in follow-up on general medical floor, he is breathing easier, his left-sided chest pain subsided, although still there especially with episodes of coughing. his pain is much better controlled, he remains on steroids, antibiotics and bronchodilators, is sounding clear on today's exam. On 06/14/2019 patient seen in follow-up on the general medical floor, she sits up in the chair, in no acute distress, FiO2 is room air, and his pulse ox is 91- 95%, he is tolerating ambulation, his breathing much improved, his left-sided chest pain has significantly subsided, and patient's breathing is very comfortable, lung sounds are clear, diminished, no rhonchi, no wheezing, patient has been treated with Rocephin, IV steroids, nebulized bronchodilators, improved, sputum culture was positive for group B Streptococcus, and patient is being sent home on oral Ceftin. Discharge planning in progress for discharge home today. Objective - Vital Signs Vital signs: Vital Signs Temp 97.9 F 06/14/19 08:25 Pulse 80 06/14/19 09:53 Resp 17 06/14/19 08:25 BP 129/80 06/14/19 08:25 Pulse Ox 95 06/14/19 09:41 Intake & Output 06/13/19 06/14/19 06/14/19 18:59 06:59 18:59 Intake Total 780 Balance 780 Intake: Oral 780 Other: Voiding Method Toilet Toilet # Voids 2 1 # Bowel Movements 0 - Exam GENERAL EXAM: Alert, very pleasant, 58-year-old short statured white male on 2 L of oxygen with a pulse ox of 89-91%, in no acute distress from left pleuritic chest pain HEAD: Normocephalic/atraumatic. EYES: Normal reaction of pupils, equal size. Conjunctiva pink, sclera white. NOSE: Clear with pink turbinates. THROAT: No erythema or exudates. NECK: No masses, no JVD, no thyroid enlargement, no adenopathy. CHEST: No chest wall deformity. Symmetrical expansion. LUNGS: diminished air entry with no crackles, wheeze, rhonchi or dullness. CVS: Regular rate and rhythm, normal S1 and S2, no gallops, no murmurs, no rubs ABDOMEN: Soft, nontender. No hepatosplenomegaly, normal bowel sounds, no guarding or rigidity. EXTREMITIES: No clubbing, mild pretibial and ankle edema, no cyanosis, 2+ pulses and upper and lower extremities. MUSCULOSKELETAL: Muscle strength and tone normal. SPINE: No scoliosis or deformity SKIN: No rashes CENTRAL NERVOUS SYSTEM: Alert and oriented -3. No focal deficits, tone is normal in all 4 extremities. PSYCHIATRIC: Alert and oriented -3. Appropriate affect. Intact judgment and insight. - Labs CBC & Chem 7: 06/14/19 07:02 06/14/19 07:02 Labs: Abnormal Lab Results - Last 24 Hours (Table) 06/13/19 06/13/19 06/13/19 Range/Units 11:38 16:39 20:58 WBC (3.8-10.6) k/uL Neutrophils # (1.3-7.7) k/uL Sodium (137-145) mmol/L BUN (9-20) mg/dL POC Glucose (mg/dL) 133 H 101 H 124 H (75-99) mg/dL 06/14/19 06/14/19 Range/Units 07:02 07:02 WBC 13.0 H (3.8-10.6) k/uL Neutrophils # 9.8 H (1.3-7.7) k/uL Sodium 136 L (137-145) mmol/L BUN 27 H (9-20) mg/dL POC Glucose (mg/dL) (75-99) mg/dL Microbiology - Last 24 Hours (Table) 06/11/19 16:45 Gram Stain - Final Sputum Sputum Culture - Final Strep agalactiae - (group b) Assessment and Plan Plan: Assessment: #1. Acute dyspnea and acute hypoxemic respiratory failure related to acute COPD exacerbation and pleuritic chest pain in the left side, chest x-ray showed bibasilar subsegmental dependent atelectasis #2. History of HIV, on anti-viral with adequate CD4 counts #3. Pleuritic chest pain in the left side, d-dimer is negative, 4 sets of cardiac troponins are negative at less than 0.012, acute pulmonary embolism ruled out #4. History of GERD #5. History of hypertension #6. COPD not oxygen dependent at baseline #7. History of chronic and ongoing nicotine dependence #8. History of sleep apnea #9. Bipolar disorder Plan: Patient continues to improve, he is now on room air, supplemental oxygen has been weaned off, he is tolerating ambulation, vital signs are stable, remains comfortable, patient is being discharge home today on oral Ceftin, prednisone taper, and he can resume his nebulized treatments and maintenance inhalers, follow up with Dr. Choe in the office in one week I performed a history & physical examination of the patient and discussed their management with my nurse practitioner, Angela Barksdale. I reviewed the nurse practitioner's note and agree with the documented findings and plan of care. Lung sounds are positive for diminished breath sounds. The findings and the impression was discussed with the patient. I attest to the documentation by the nurse practitioner. Time with Patient: Less than 30
--- NOTE | 2019-06-14 12:02 | PN ---
PROGRESS NOTE DATE OF SERVICE: 06/14/2019 REASON FOR FOLLOWUP: 1. HIV. 2. Possible pneumonia. INTERVAL HISTORY: The patient is currently afebrile. He was seen on rounds this morning. He has been breathing more comfortably. Left-sided chest pain has decreased. No nausea or vomiting. No Abdominal pain. No diarrhea. PHYSICAL EXAMINATION: Blood pressure 129/80 with a pulse of 80, temperature 97.9. He is 95% on room air. General description is a middle-aged male up in the chair in no distress. RESPIRATORY SYSTEM: Unlabored breathing. Some decreased breath sounds at the bases. No wheeze. HEART: S1, S2. Regular rate and rhythm. ABDOMEN: Soft, no tenderness. LABS: Hemoglobin 16.1 with white count 13. BUN of 27, creatinine 1.08. The patient did have a chest x-ray completed with basal atelectasis and emphysema. DIAGNOSTIC IMPRESSION AND PLAN: 1. Patient admitted to the hospital with left-sided chest pain, possible atelectasis. However, the sputum did grow Streptococcus agalactiae, underlying pneumonia not entirely excluded. He did receive a dose of Rocephin yesterday. Will give a 5-day course of oral Ceftin. 2. HIV. To continue with his antiretroviral regimen in the form of Tivicay and Descovy and Intelence and follow with his ID physician at [facility]. MMODL / IJN: [id number] /
--- NOTE | 2019-06-20 09:29 | CDI ---
Documentation Clarification Form Date: 06/20/19 From: Ileana Mcclellan Phone: If you have a question about this query, please contact Barbara Cavanaugh, Zoning Assistant at [phone] between 8am and 5pm. Admit Date: 06/09/19 Discharge Date: 06/14/19 Patient Name: Jack Luna Visit Number: [id number] ATTENTION: The Clinical Documentation Specialists (CDI) and [facility] Coding Staff appreciate your assistance in clarifying documentation. Please respond to the clarification below the line at the bottom and electronically sign. The CDI & [facility] Coding staff will review the response and follow-up if needed. Please note: Queries are made part of the Legal Health Record. If you have any questions, please contact the author of this message via ITS. Dear Dr. Daniela Rojo, Per DS - Repeat chest x-ray completed showing probable basal atelectasis. Emphysema. Emphysema. COPD exacerbation. History/Risk Factors: AIDS, morbid obesity, HTN, OA, GERD, neuropathy, sleep apnea Significant history of respiratory disorders/disease: COPD Present or past smoker/PPD: smokes Home O2: yes Clinical Indicators: SOB and left sided chest pain. 06/13 CXR: Probable basilar atelectasis. Emphysema. Vital Signs/Pulse Oximetry: T-97.8, P-104, R-24, BP-137/92, O2 Sat-91 Lung and Respiratory Assessment Treatment: Oxygen, IV steroids, nebulizer, antibotics Nebulizers-Duoneb Steroids-IV Solu-MEDROL O2 @ 2 to 4 liters Antibiotics-Vibramycin 10 mg PO Q12HR, IV Rocephin 2 gm IVPB In your professional opinion, can you please clarify if the above findings and treatment signify any of the following? Acute Exacerbation of Chronic Obstructive Pulmonary Disease (COPD) Chronic obstructive pulmonary disease with acute lower respiratory infection Emphysema Other condition, please specify Unable to determine Acute exacerbation of chronic obstructive pulmonary disease MTDD
== END 2019-06-14 11:15 | disposition home health service (06) | DRG 190 ==
LOC: EC 07:40 → 4SSUR 11:35
PROVIDERS: ADMIT Internal Medicine; ATTEND Internal Medicine
DX: J44.0 Chronic obstructive pulmonary disease with (acute) lower respiratory infection (principal); J96.01 Acute respiratory failure with hypoxia; B20 Human immunodeficiency virus [HIV] disease; J98.11 Atelectasis; Z68.41 Body mass index [BMI] 40.0-44.9, adult; N17.9 Acute kidney failure, unspecified; E66.01 Morbid (severe) obesity due to excess calories; J20.9 Acute bronchitis, unspecified; I10 Essential (primary) hypertension; M19.90 Unspecified osteoarthritis, unspecified site; K21.9 Gastro-esophageal reflux disease without esophagitis; G62.9 Polyneuropathy, unspecified; G47.30 Sleep apnea, unspecified; D72.829 Elevated white blood cell count, unspecified; T38.0X5A Adverse effect of glucocorticoids and synthetic analogues, initial encounter; F41.0 Panic disorder [episodic paroxysmal anxiety]; F31.9 Bipolar disorder, unspecified; M54.9 Dorsalgia, unspecified; R26.2 Difficulty in walking, not elsewhere classified; F17.200 Nicotine dependence, unspecified, uncomplicated; Z71.6 Tobacco abuse counseling; Z99.81 Dependence on supplemental oxygen; Z79.890 Hormone replacement therapy; Z79.899 Other long term (current) drug therapy; Z88.1 Allergy status to other antibiotic agents; Z88.2 Allergy status to sulfonamides; Z83.3 Family history of diabetes mellitus; Z80.8 Family history of malignant neoplasm of other organs or systems; Z82.49 Family history of ischemic heart disease and other diseases of the circulatory system
CPT/HCPCS: 36415; 36600; 71046; 71275; 80053; 82550; 82805; 83735; 83880; 84484; 85025; 85379; 85610; 85730; 87070; 87205; 87502; 93005; 93306; 94640; 94760; 96374; 96375; 99285

== ENCOUNTER → 2019-11-01 | Outpatient (CLI) | payer MEDICARE, OTHER ==
--- NOTE | 2019-11-01 15:25 | US ---
EXAMINATION TYPE: US kidneys/renal and bladder DATE OF EXAM: 11/01/2019 COMPARISON: NONE CLINICAL HISTORY: R10.9 Unspecified abdominal pain. Left flank pain EXAM MEASUREMENTS: Right Kidney: 9.0 x 3.6 x 5.2 cm Left Kidney: 11.3 x 4.6 x 4.1 cm Right Kidney: measures small in size when compared to left kidney, no hydronephrosis or masses seen Left Kidney: no hydronephrosis or masses seen Bladder: not fully distended Bilateral Jets seen: no There is no evidence for hydronephrosis at this point in time. No nephrolithiasis is seen. No marlo s are identified. The urinary bladder is anechoic. Bilateral ureteral jets are not seen. IMPRESSION: Asymmetric size of the kidneys incidentally seen with the left kidney larger than the rig ht. No hydronephrosis or nephrolithiasis.
== END | disposition home or self-care (01) ==
LOC: RADUSWWP 14:50
PROVIDERS: ATTEND Internal Medicine
DX: R10.9 Unspecified abdominal pain (principal)
CPT/HCPCS: 76770

== ENCOUNTER → 2020-05-04 | Outpatient (CLI) | payer MEDICARE, OTHER | END | disposition home or self-care (01) | LOC: LABWHC1 16:04 | PROVIDERS: ATTEND Internal Medicine | DX: Z20.828 Contact with and (suspected) exposure to other viral communicable diseases (principal) | CPT/HCPCS: U0003; C9803 ==

== ENCOUNTER 2020-07-17 16:27 | Emergency (ER) | payer MEDICARE, OTHER ==
[2020-07-17 16:33] VITALS: BP 144/88; PULSE 97; RESP 18; TEMP 98.5
[2020-07-17] MEDS ORDERED: HYDROcodone/APAP 10-325MG 1 EACH TAB PO ONE (17:15)
--- NOTE | 2020-07-17 17:20 | ED ---
General Adult HPI - General Chief complaint: Skin/Abscess/Foreign Body Stated complaint: abscess on arm Time Seen by Provider: 07/17/20 17:01 Source: patient, RN notes reviewed, old records reviewed Mode of arrival: ambulatory Limitations: no limitations - History of Present Illness Initial comments: 59-year-old male presenting for evaluation of a chronic cyst and abscess on his left forearm. Patient states he does lean on his walker and has developed is chronic issue over many years. From time to time it becomes inflamed he was started on antibiotics approximately one week ago, Keflex by his primary care physician. He's had no fevers. He is HIV positive. He states this is well controlled and he's had this for 30 years. He states that he did have some drainage and the skin had sloughed off several times over the abscess. - Related Data Home Medications Medication Instructions Recorded Confirmed Quinapril HCl [Accupril] 10 mg PO DAILY 05/31/16 06/09/19 Dolutegravir Sodium [Tivicay] 50 mg PO DAILY 09/01/18 06/09/19 Emtricitabine/Tenofov Alafenam 1 tab PO DAILY 09/01/18 06/09/19 [Descovy 200-25 mg Tablet] Gabapentin [Neurontin] 300 mg PO TID 09/01/18 06/09/19 Levothyroxine Sodium [Synthroid] 25 mcg PO DAILY 09/01/18 06/09/19 buPROPion HCL [Wellbutrin XL] 300 mg PO DAILY 09/01/18 06/09/19 hydroCHLOROthiazide [Hydrodiuril] 25 mg PO DAILY 09/01/18 06/09/19 traZODone HCL 150 mg PO HS 09/01/18 06/09/19 Albuterol Inhaler (Mhu) [Ventolin 2 puff INHALATION RT-Q4H PRN 03/31/19 06/09/19 Hfa Inhaler (Mhu)] Baclofen [Lioresal] 10 mg PO HS 03/31/19 06/09/19 Citalopram Hydrobromide [CeleXA] 40 mg PO DAILY 03/31/19 06/09/19 Diltiazem HCl [Diltiazem HCl 24Hr 360 mg PO DAILY 03/31/19 06/09/19 ER] Intelence 200mg 200 mg PO BID 03/31/19 06/09/19 Mupirocin 2% Oint [Bactroban 2% 1 applic TOPICAL DAILY 03/31/19 06/09/19 Oint] Umeclidinium [place] [Incruse 1 puff INHALATION RT-DAILY 03/31/19 06/09/19 Ellipta] Acetaminophen-Codeine 300-30mg 1 tab PO Q6H PRN 06/09/19 06/09/19 [Tylenol w/codeine #3] Ipratropium [place] 0.06%Nasal 1 spray EA NOSTRIL BID 06/09/19 06/09/19 [Atrovent Nasal 0.06%] Previous Rx's Medication Instructions Recorded Cefuroxime Axetil [Ceftin] 500 mg PO BID 5 Days #10 tab 06/14/19 Nicotine 14Mg/24Hr Patch [Habitrol] 1 patch TRANSDERM DAILY 30 Days 06/14/19 #30 patch guaiFENesin [Mucinex] 600 mg PO Q12HR PRN 7 Days #14 06/14/19 tablet.er predniSONE 10 mg PO DIRECTED 10 Days #15 06/14/19 tab predniSONE 10 mg PO DIRECTED 10 Days #15 06/14/19 tab Doxycycline [Vibramycin] 100 mg PO BID 7 Days #14 capsule 07/17/20 Allergies Allergy/AdvReac Type Severity Reaction Status Date / Time azithromycin Allergy Rash/Hives Verified 07/17/20 16:32 [From Zithromax Z-Simone] Sulfa (Sulfonamide Allergy Rash/Hives Verified 07/17/20 16:32 Antibiotics) Review of Systems ROS Statement: Those systems with pertinent positive or pertinent negative responses have been documented in the HPI. ROS Other: All systems not noted in ROS Statement are negative. Past Medical History Past Medical History: COPD, GERD/Reflux, Hypertension, Osteoarthritis (OA) Additional Past Medical History / Comment(s): HIV/AIDS(1990) back pain, neuropathy,sleep apnea History of Any Multi-Drug Resistant Organisms: None Reported Additional Past Surgical History / Comment(s): neck surgery, throat surgery Past Anesthesia/Blood Transfusion Reactions: No Reported Reaction Past Psychological History: Bipolar, Depression, Panic Disorder Smoking Status: Current every day smoker Past Alcohol Use History: Occasional Past Drug Use History: None Reported - Past Family History Brother(s) Family Medical History: Diabetes Mellitus Father Family Medical History: Cancer Additional Family Medical History / Comment(s): Father of throat cancer. Mother Additional Family Medical History / Comment(s): Mother of a ruptured brain aneurysm. General Exam Limitations: no limitations General appearance: alert, in no apparent distress Head exam: Present: atraumatic, normocephalic Eye exam: Present: normal appearance, PERRL ENT exam: Present: normal exam Neck exam: Present: normal inspection. Absent: tenderness, meningismus Respiratory exam: Present: normal lung sounds bilaterally. Absent: respiratory distress, wheezes Cardiovascular Exam: Present: regular rate, normal rhythm GI/Abdominal exam: Present: soft, distended Extremities exam: Present: other (There is an area of erythema and desquamation on the medial aspect of the forearm with some animal induration and a central fluctuance about 1 cm x 1 cm.) Neurological exam: Present: alert, oriented X3, motor sensory deficit Psychiatric exam: Present: normal affect, normal mood Skin exam: Present: warm, other (Small abscess with surrounding induration) Course Vital Signs 07/17/20 16:29 Temperature 98.5 F Pulse Rate 97 Respiratory 18 Rate Blood Pressure 144/88 O2 Sat by Pulse 95 Oximetry Procedures - [place] Protocol (Time Out) Procedure Performed:: Incision and drainage. Performing Provider: Dennis Briggs Nurse: Jewel Maddox Patient/Legal Cradle Placer has Confirmed: Identity, Site Site Marked: Yes Site Verified With Patient/Guardian: Yes - Incision & Drainage Consent Obtained: verbal consent Indication: Abscess Site: upper extremity Size (cm): 1 I&D Cleaning Method: Chloroprep Sterile Field Used?: Yes Scalpel Used: #11 Needle Aspiration Performed?: No Irrigation Performed?: No I&D Drainage Obtained: Blood Culture Obtained?: No Patient Tolerated Procedure: well Medical Decision Making - Medical Decision Making 59 -year-old male presenting with acute on chronic infection in the left forearm, there is a small area of fluctuance with surrounding induration. Patient is otherwise well-appearing currently on Keflex. He has possibility of a central abscess which is incised with only blood return, no purulent material. Doxycycline will be added as this patient currently has a sulfa ALLERGY and is on Keflex. He will follow with his primary care physician. Disposition Clinical Impression: Cellulitis and abscess of upper arm and forearm Disposition: HOME SELF-CARE Condition: Good Instructions (If sedation given, give patient instructions): Abscess Incision and Drainage (ED), Abscess (ED) Prescriptions: Doxycycline [Vibramycin] 100 mg PO BID 7 Days #14 capsule Is patient prescribed a controlled substance at d/c from ED?: No Referrals: Daniela Rojo MD [Primary Care Provider] - 1-2 days Time of Disposition: 17:20
== END 2020-07-17 17:43 | disposition home or self-care (01) ==
LOC: EC 16:27
DX: L02.414 Cutaneous abscess of left upper limb (principal); L03.114 Cellulitis of left upper limb; F31.9 Bipolar disorder, unspecified; F41.0 Panic disorder [episodic paroxysmal anxiety]; K21.9 Gastro-esophageal reflux disease without esophagitis; I10 Essential (primary) hypertension; M19.90 Unspecified osteoarthritis, unspecified site; J44.9 Chronic obstructive pulmonary disease, unspecified; F17.200 Nicotine dependence, unspecified, uncomplicated; Z79.899 Other long term (current) drug therapy; Z79.51 Long term (current) use of inhaled steroids; Z21 Asymptomatic human immunodeficiency virus [HIV] infection status; Z88.0 Allergy status to penicillin; Z88.2 Allergy status to sulfonamides
CPT/HCPCS: 10060; 99283

== ENCOUNTER 2020-07-21 13:28 | Emergency (ER) | payer MEDICARE, OTHER ==
[2020-07-21 13:41] VITALS: PULSE 85; RESP 18; TEMP 98.5
[2020-07-21] MEDS ORDERED: LIDOCAINE 1% INJ 10MG/ML (20 ML MDV) SQ ONE (13:50)
--- NOTE | 2020-07-21 14:40 | US ---
EXAMINATION TYPE: US extremity nonvasc mass LT DATE OF EXAM: 07/21/2020 COMPARISON: NONE CLINICAL HISTORY: abscess v cyst. Patient has red raised area on left inside forearm from resting on a walker. Drainage was attempted in ER with only blood coming out per patient. A sterile probe cover was used as there is an open inci antwan where drainage was attempted. Scanning was performed over red raised area, there is a 4.6 x 1.3 cm heterogeneous hypervascular area felt to be consistent with abscess. IMPRESSION: Complex area measures 4.6 x 1.3 cm with vascularity. This could be a phlegmon.
[2020-07-21] MEDS ORDERED: HYDROcodone/APAP 5-325MG 1 EACH TAB PO STA (15:06)
--- NOTE | 2020-07-21 15:08 | ED ---
General Adult HPI - General Chief complaint: Skin/Abscess/Foreign Body Stated complaint: abscess on arm Time Seen by Provider: 07/21/20 13:46 Source: patient Mode of arrival: ambulatory Limitations: no limitations - History of Present Illness Initial comments: 59-year-old male with a past medical history of HIV, COPD, hypertension to room 4 possible abscess of the left forearm. Patient states this started about a week ago which point he was put on Keflex by his primary care provider. Patient states he has a cyst here with a callus from using his walker. It states this has been ongoing for years and he did see a surgeon for this who wanted to leave it alone in monitor. Patient states sometimes it will get infected. Patient states he came here 4 days ago and had doxycycline added. Incision and drainage was attempted at that time with only blood return. No purulent drainage. Patient states that if this is improving but he had 2 layers of skin peel off the top of it and wants to make sure the pink skin underneath is normal. He denies fevers. Denies joint pain. He reports his HIV is very controlled with a CD4 greater than 800 and almost undetectable viral load.Patient has no other complaints at this time including shortness of breath, chest pain, abdominal pain, nausea or vomiting, headache, or visual changes. - Related Data Home Medications Medication Instructions Recorded Confirmed Quinapril HCl [Accupril] 10 mg PO DAILY 05/31/16 06/09/19 Dolutegravir Sodium [Tivicay] 50 mg PO DAILY 09/01/18 06/09/19 Emtricitabine/Tenofov Alafenam 1 tab PO DAILY 09/01/18 06/09/19 [Descovy 200-25 mg Tablet] Gabapentin [Neurontin] 300 mg PO TID 09/01/18 06/09/19 Levothyroxine Sodium [Synthroid] 25 mcg PO DAILY 09/01/18 06/09/19 buPROPion HCL [Wellbutrin XL] 300 mg PO DAILY 09/01/18 06/09/19 hydroCHLOROthiazide [Hydrodiuril] 25 mg PO DAILY 09/01/18 06/09/19 traZODone HCL 150 mg PO HS 09/01/18 06/09/19 Albuterol Inhaler (Mhu) [Ventolin 2 puff INHALATION RT-Q4H PRN 03/31/19 06/09/19 Hfa Inhaler (Mhu)] Baclofen [Lioresal] 10 mg PO HS 03/31/19 06/09/19 Citalopram Hydrobromide [CeleXA] 40 mg PO DAILY 03/31/19 06/09/19 Diltiazem HCl [Diltiazem HCl 24Hr 360 mg PO DAILY 03/31/19 06/09/19 ER] Intelence 200mg 200 mg PO BID 03/31/19 06/09/19 Mupirocin 2% Oint [Bactroban 2% 1 applic TOPICAL DAILY 03/31/19 06/09/19 Oint] Umeclidinium [place] [Incruse 1 puff INHALATION RT-DAILY 03/31/19 06/09/19 Ellipta] Acetaminophen-Codeine 300-30mg 1 tab PO Q6H PRN 06/09/19 06/09/19 [Tylenol w/codeine #3] Ipratropium [place] 0.06%Nasal 1 spray EA NOSTRIL BID 06/09/19 06/09/19 [Atrovent Nasal 0.06%] Previous Rx's Medication Instructions Recorded Cefuroxime Axetil [Ceftin] 500 mg PO BID 5 Days #10 tab 06/14/19 Nicotine 14Mg/24Hr Patch [Habitrol] 1 patch TRANSDERM DAILY 30 Days 06/14/19 #30 patch guaiFENesin [Mucinex] 600 mg PO Q12HR PRN 7 Days #14 06/14/19 tablet.er predniSONE 10 mg PO DIRECTED 10 Days #15 06/14/19 tab predniSONE 10 mg PO DIRECTED 10 Days #15 06/14/19 tab Doxycycline [Vibramycin] 100 mg PO BID 7 Days #14 capsule 07/17/20 Allergies Allergy/AdvReac Type Severity Reaction Status Date / Time azithromycin Allergy Rash/Hives Verified 07/21/20 13:41 [From Zithromax Z-Simone] Sulfa (Sulfonamide Allergy Rash/Hives Verified 07/21/20 13:41 Antibiotics) Review of Systems ROS Statement: Those systems with pertinent positive or pertinent negative responses have been documented in the HPI. ROS Other: All systems not noted in ROS Statement are negative. Past Medical History Past Medical History: COPD, GERD/Reflux, Hypertension, Osteoarthritis (OA) Additional Past Medical History / Comment(s): HIV/AIDS(1990) back pain, neuropathy,sleep apnea History of Any Multi-Drug Resistant Organisms: None Reported Additional Past Surgical History / Comment(s): neck surgery, throat surgery Past Anesthesia/Blood Transfusion Reactions: No Reported Reaction Past Psychological History: Bipolar, Depression, Panic Disorder Smoking Status: Current every day smoker Past Alcohol Use History: Occasional Past Drug Use History: None Reported - Past Family History Brother(s) Family Medical History: Diabetes Mellitus Father Family Medical History: Cancer Additional Family Medical History / Comment(s): Father of throat cancer. Mother Additional Family Medical History / Comment(s): Mother of a ruptured brain aneurysm. General Exam Limitations: no limitations General appearance: alert, in no apparent distress Head exam: Present: atraumatic, normocephalic, normal inspection Eye exam: Present: normal appearance, PERRL, EOMI. Absent: scleral icterus, conjunctival injection, periorbital swelling ENT exam: Present: normal exam, mucous membranes moist Neck exam: Present: normal inspection. Absent: tenderness, meningismus, lymphadenopathy Respiratory exam: Present: normal lung sounds bilaterally. Absent: respiratory distress, wheezes, rales, rhonchi, stridor Cardiovascular Exam: Present: regular rate, normal rhythm, normal heart sounds GI/Abdominal exam: Present: soft, normal bowel sounds. Absent: distended, tenderness, guarding, rebound, rigid Extremities exam: Present: other (Patient has a large 7 x 6 cm) Course Vital Signs 07/21/20 07/21/20 13:39 14:41 Temperature 98.5 F Pulse Rate 85 Respiratory 18 18 Rate Blood Pressure 128/79 O2 Sat by Pulse 93 L Oximetry Procedures - Incision & Drainage Consent Obtained: verbal consent Indication: abscess v mass Site: upper extremity Size (cm): 6 Anesthetic Used: lidocaine 1% Amount (mLs): 2 I&D Cleaning Method: Chloroprep Sterile Field Used?: Yes Scalpel Used: #11 I&D Drainage Obtained: Blood Patient Tolerated Procedure: well, no complications Medical Decision Making - Medical Decision Making There is a 5 cm x 4 cm raised area on the left forearm that is fluctuant. There is no streaking or spreading redness. There is some slight erythema overlying this area where the skin had peeled which does appear to be consistent with new growing skin. I did attempt to incise and drain the area without purulent discharge. Formal Ultrasound shows a complex area measuring 4.6 x 1.3 cm with vascularity that could be a phlegmon. As stated patient has had this mass for years. Bedside ultrasound was performed by Dr. Jewell. There was no area pus collection. At this point patient states he does believe it is improving and just wanted to make sure that the new skin was normal looking. Giving improving area, no fevers, well controlled HIV patient we discharged home to continue his antibiotic therapy. He has an appointment with his doctor in 2 days and he will follow-up. If he notices any worsening signs of infection which were discussed he will return to the emergency room. Disposition Clinical Impression: Soft tissue mass Disposition: HOME SELF-CARE Condition: Good Additional Instructions: Continue antibiotics. If you start to have spreading or streaking redness, fevers, or worsening symptoms return to the emergency room. Otherwise follow-up with your doctor at your appointment on Thursday. Is patient prescribed a controlled substance at d/c from ED?: No Referrals: Daniela Rojo MD [Primary Care Provider] - 1-2 days Time of Disposition: 15:12
[2020-07-21 15:23] VITALS: BP 143/81
== END 2020-07-21 15:22 | disposition home or self-care (01) ==
LOC: EC 13:28
DX: R22.32 Localized swelling, mass and lump, left upper limb (principal); J44.9 Chronic obstructive pulmonary disease, unspecified; K21.9 Gastro-esophageal reflux disease without esophagitis; I10 Essential (primary) hypertension; M19.90 Unspecified osteoarthritis, unspecified site; G62.9 Polyneuropathy, unspecified; G47.30 Sleep apnea, unspecified; F31.9 Bipolar disorder, unspecified; F41.0 Panic disorder [episodic paroxysmal anxiety]; F17.200 Nicotine dependence, unspecified, uncomplicated; Z88.0 Allergy status to penicillin; Z88.2 Allergy status to sulfonamides; Z99.89 Dependence on other enabling machines and devices; Z79.890 Hormone replacement therapy; Z79.51 Long term (current) use of inhaled steroids; Z79.899 Other long term (current) drug therapy; Z21 Asymptomatic human immunodeficiency virus [HIV] infection status
CPT/HCPCS: 76882; 99283; 10060; J2001

== ENCOUNTER → 2020-10-23 | Outpatient (CLI) | payer MEDICARE, OTHER ==
--- NOTE | 2020-10-24 07:37 | US ---
EXAMINATION TYPE: US venous doppler duplex LE LT DATE OF EXAM: 10/23/2020 4:58 PM COMPARISON: US 12/04/2017 CLINICAL HISTORY: R22.42 Localized swelling, mass and lump, left low. SIDE PERFORMED: Left TECHNIQUE: The lower extremity deep venous system is examined utilizing real time linear array sonog bridget with graded compression, doppler sonography and color-flow sonography. VESSELS IMAGED: Common Femoral Vein Deep Femoral Vein Greater Saphenous Vein * Femoral Vein Popliteal Vein Small Saphenous Vein * Proximal Calf Veins (* superficial vessels) Left Leg: Negative for DVT IMPRESSION: 1. No evidence of deep venous thrombosis in the left lower extremity veins.
== END | disposition home or self-care (01) ==
LOC: RADUSWWP 16:41
PROVIDERS: ATTEND Internal Medicine
DX: R22.42 Localized swelling, mass and lump, left lower limb (principal)

== ENCOUNTER 2020-11-02 22:13 | Emergency (ER) | payer MEDICARE, OTHER ==
[2020-11-02 22:20] VITALS: RESP 22; TEMP 98
[2020-11-02] MEDS ORDERED: FUROSEMIDE 10 MG/ML 4 ML VIAL IV STA (23:08)
[2020-11-02 23:59] LABS: Basophils # (A) 0.1 k/uL (0-0.2); Basophils % (A) 1 %; Eosinophils # (A) 0.4 k/uL (0-0.7); Eosinophils % (A) 4 %; HCT 45.7 % (39.0-53.0); HGB 14.6 gm/dL (13.0-17.5); Lymphocytes # (A) 1.7 k/uL (1.0-4.8); Lymphocytes % (A) 16 %; MCH 27.6 pg (25.0-35.0); MCHC 32.1 g/dL (31.0-37.0); MCV 86.1 fL (80.0-100.0); Mean Platelet Volume 6.3; Monocytes # (A) 0.7 k/uL (0-1.0); Monocytes % (A) 7 %; Neutrophils # (A) 7.4 k/uL (1.3-7.7); Neutrophils % (A) 71 %; Platelet Count 263 k/uL (150-450); RBC 5.31 m/uL (4.30-5.90); RDW 14.1 % (11.5-15.5); WBC 10.4 k/uL (3.8-10.6)
--- NOTE | 2020-11-03 | XR ---
EXAMINATION TYPE: XR chest 1V DATE OF EXAM: 11/02/2020 COMPARISON: 06/22/2019 HISTORY: Hypoxemia TECHNIQUE: FINDINGS: Heart and mediastinum are normal. There is some linear density at the lung bases. There is no heart failure. There are no hilar masses. The bony thorax appears intact. IMPRESSION: There is some mild subsegmental atelectasis at the lung bases that is increased compared to old exam. No heart failure.
[2020-11-03 00:07] LABS: ALT 32 U/L (4-49); AST 42 U/L (17-59); African American GFR (CKD) >90 (>60 ml/min/1.73 sqM); Alkaline Phosphatase 57 U/L (38-126); Anion Gap 8 mmol/L; Blood Urea Nitrogen 14 mg/dL (9-20); Calcium 9.7 mg/dL (8.4-10.2); Carbon Dioxide 28 mmol/L (22-30); Chloride 98 mmol/L (98-107); Glucose 90 mg/dL (74-99); Non-African American GFR(CKD) >90 (>60 ml/min/1.73 sqM); Potassium 4.4 mmol/L (3.5-5.1); Sodium 134 mmol/L (137-145); Total Bilirubin 0.3 mg/dL (0.2-1.3); Total Protein 6.4 g/dL (6.3-8.2)
--- NOTE | 2020-11-03 00:49 | ED ---
General Adult HPI - General Chief complaint: Extremity Problem,Nontraumatic Stated complaint: Bilateral Leg Swelling Time Seen by Provider: 11/02/20 22:27 Source: patient Mode of arrival: wheelchair Limitations: no limitations - History of Present Illness Initial comments: 60 year-old male patient presents to the emergency department for evaluation of lower extremity edema. Patient states his legs have been swollen for quite some time. Did see his physician at the beginning of this week and was changed from Lasix to another "water pill" he does not recall the name. Also ordered him some compression stocking. States that his calves are tight and painful. Denies any increased shortness of breath or cough. Denies orthopnea. Denies fever or chills. Patient denies any recent rash, cough, chest pain, abdominal pain, nausea, vomiting, diarrhea, constipation, back pain, numbness, tingling, dizziness, weakness, hematuria, dysuria, urinary urgency, urinary frequency, headache, visual changes, or any other complaints. - Related Data Home Medications Medication Instructions Recorded Confirmed Quinapril HCl [Accupril] 10 mg PO DAILY 05/31/16 06/09/19 Dolutegravir Sodium [Tivicay] 50 mg PO DAILY 09/01/18 06/09/19 Emtricitabine/Tenofov Alafenam 1 tab PO DAILY 09/01/18 06/09/19 [Descovy 200-25 mg Tablet] Gabapentin [Neurontin] 300 mg PO TID 09/01/18 06/09/19 Levothyroxine Sodium [Synthroid] 25 mcg PO DAILY 09/01/18 06/09/19 buPROPion HCL [Wellbutrin XL] 300 mg PO DAILY 09/01/18 06/09/19 hydroCHLOROthiazide [Hydrodiuril] 25 mg PO DAILY 09/01/18 06/09/19 traZODone HCL 150 mg PO HS 09/01/18 06/09/19 Albuterol Inhaler (Mhu) [Ventolin 2 puff INHALATION RT-Q4H PRN 03/31/19 06/09/19 Hfa Inhaler (Mhu)] Baclofen [Lioresal] 10 mg PO HS 03/31/19 06/09/19 Citalopram Hydrobromide [CeleXA] 40 mg PO DAILY 03/31/19 06/09/19 Diltiazem HCl [Diltiazem HCl 24Hr 360 mg PO DAILY 03/31/19 06/09/19 ER] Intelence 200mg 200 mg PO BID 03/31/19 06/09/19 Mupirocin 2% Oint [Bactroban 2% 1 applic TOPICAL DAILY 03/31/19 06/09/19 Oint] Umeclidinium [place] [Incruse 1 puff INHALATION RT-DAILY 03/31/19 06/09/19 Ellipta] Acetaminophen-Codeine 300-30mg 1 tab PO Q6H PRN 06/09/19 06/09/19 [Tylenol w/codeine #3] Ipratropium [place] 0.06%Nasal 1 spray EA NOSTRIL BID 06/09/19 06/09/19 [Atrovent Nasal 0.06%] Previous Rx's Medication Instructions Recorded Cefuroxime Axetil [Ceftin] 500 mg PO BID 5 Days #10 tab 06/14/19 Nicotine 14Mg/24Hr Patch [Habitrol] 1 patch TRANSDERM DAILY 30 Days 06/14/19 #30 patch guaiFENesin [Mucinex] 600 mg PO Q12HR PRN 7 Days #14 06/14/19 tablet.er predniSONE 10 mg PO DIRECTED 10 Days #15 06/14/19 tab predniSONE 10 mg PO DIRECTED 10 Days #15 06/14/19 tab Doxycycline [Vibramycin] 100 mg PO BID 7 Days #14 capsule 07/17/20 Allergies Allergy/AdvReac Type Severity Reaction Status Date / Time azithromycin Allergy Rash/Hives Verified 07/21/20 13:41 [From Zithromax Z-Simone] Sulfa (Sulfonamide Allergy Rash/Hives Verified 07/21/20 13:41 Antibiotics) Review of Systems ROS Statement: Those systems with pertinent positive or pertinent negative responses have been documented in the HPI. ROS Other: All systems not noted in ROS Statement are negative. Past Medical History Past Medical History: COPD, GERD/Reflux, Hypertension, Osteoarthritis (OA) Additional Past Medical History / Comment(s): HIV/AIDS(1990) back pain, neuropathy,sleep apnea History of Any Multi-Drug Resistant Organisms: None Reported Additional Past Surgical History / Comment(s): neck surgery, throat surgery Past Anesthesia/Blood Transfusion Reactions: No Reported Reaction Past Psychological History: Bipolar, Depression, Panic Disorder Smoking Status: Current every day smoker Past Alcohol Use History: Occasional Past Drug Use History: None Reported - Past Family History Brother(s) Family Medical History: Diabetes Mellitus Father Family Medical History: Cancer Additional Family Medical History / Comment(s): Father of throat cancer. Mother Additional Family Medical History / Comment(s): Mother of a ruptured brain aneurysm. General Exam Limitations: no limitations General appearance: alert, in no apparent distress, other (This is a well- developed, well-nourished adult male patient in no acute distress. Vital signs upon presentation temperature 98.0 degrees Fahrenheit, pulse 86, respirations 22, blood pressure 135/76, pulse ox 92% on room air.) Eye exam: Present: normal appearance, PERRL, EOMI. Absent: scleral icterus, conjunctival injection, periorbital swelling ENT exam: Present: normal exam, normal oropharynx, mucous membranes moist Respiratory exam: Present: normal lung sounds bilaterally. Absent: respiratory distress, wheezes, rales, rhonchi, stridor Cardiovascular Exam: Present: regular rate, normal rhythm, normal heart sounds. Absent: systolic murmur, diastolic murmur, rubs, gallop, clicks GI/Abdominal exam: Present: soft, normal bowel sounds. Absent: distended, tenderness, guarding, rebound, rigid Extremities exam: Present: full ROM, normal capillary refill, other (Lower extremity edema, pedal edema. Nonpitting. Skin is warm and dry. Cap refill less than 3 seconds. Pedal pulses 2+.). Absent: tenderness, pedal edema, joint swelling, calf tenderness Neurological exam: Present: alert, oriented X3, CN II-XII intact Psychiatric exam: Present: normal affect, normal mood Skin exam: Present: warm, dry, intact, normal color. Absent: rash Course Vital Signs 11/02/20 11/03/20 22:15 01:31 Temperature 98.0 F Pulse Rate 86 72 Respiratory 22 22 Rate Blood Pressure 135/76 117/76 O2 Sat by Pulse 92 L 92 L Oximetry Medical Decision Making - Medical Decision Making 60-year-old male patient presents to the emergency department today for evaluation of lower extremity edema. Physical examination did reveal nonpitting edema to the lower legs and feet. Chest x-ray showed no evidence for heart failure. Labs reviewed and were unremarkable. BNP negative. He is given DELL hose. Given a dose of Lasix here. He'll be discharged from his primary care p [facility] for recheck in 1-2 days. Return parameters were discussed in detail. He verbalizes understanding and agrees with this plan. My attending is Dr. Desai. - Lab Data Result diagrams: 11/02/20 23:43 11/02/20 23:43 Lab Results 11/02/20 11/02/20 11/02/20 Range/Units 23:43 23:43 23:43 WBC 10.4 (3.8-10.6) k/uL RBC 5.31 (4.30-5.90) m/uL Hgb 14.6 (13.0-17.5) gm/dL Hct 45.7 (39.0-53.0) % MCV 86.1 (80.0-100.0) fL MCH 27.6 (25.0-35.0) pg MCHC 32.1 (31.0-37.0) g/dL RDW 14.1 (11.5-15.5) % Plt Count 263 (150-450) k/uL MPV 6.3 Neutrophils % 71 % Lymphocytes % 16 % Monocytes % 7 % Eosinophils % 4 % Basophils % 1 % Neutrophils # 7.4 (1.3-7.7) k/uL Lymphocytes # 1.7 (1.0-4.8) k/uL Monocytes # 0.7 (0-1.0) k/uL Eosinophils # 0.4 (0-0.7) k/uL Basophils # 0.1 (0-0.2) k/uL Sodium 134 L (137-145) mmol/L Potassium 4.4 (3.5-5.1) mmol/L Chloride 98 (98-107) mmol/L Carbon Dioxide 28 (22-30) mmol/L Anion Gap 8 mmol/L BUN 14 (9-20) mg/dL Creatinine 0.92 (0.66-1.25) mg/dL Est GFR (CKD-EPI)AfAm >90 (>60 ml/min/1.73 sqM) Est GFR (CKD-EPI)NonAf >90 (>60 ml/min/1.73 sqM) Glucose 90 (74-99) mg/dL Calcium 9.7 (8.4-10.2) mg/dL Total Bilirubin 0.3 (0.2-1.3) mg/dL AST 42 (17-59) U/L ALT 32 (4-49) U/L Alkaline Phosphatase 57 (38-126) U/L NT-Pro-B Natriuret Pep 277 pg/mL Total Protein 6.4 (6.3-8.2) g/dL Albumin 4.0 (3.5-5.0) g/dL - Radiology Data Radiology results: report reviewed, image reviewed 1 year x-ray of the chest is obtained. Report is reviewed in its entirety. Impression by Dr. Shaffer shows mild subsegmental atelectasis at the lung bases that is increased compared to old exam. No heart failure. Disposition Clinical Impression: Lower leg edema Disposition: HOME SELF-CARE Condition: Good Instructions (If sedation given, give patient instructions): Leg Edema (ED) Additional Instructions: Use Dell hose until your new compression stockings come in. Take off while sleeping. Follow up with your primary care physician for recheck in 1-2 days. Return for any new, worsening, or concerning symptoms. Is patient prescribed a controlled substance at d/c from ED?: No Referrals: Daniela Rojo MD [Primary Care Provider] - 1-2 days Time of Disposition: 00:48
[2020-11-03 01:38] VITALS: BP 117/76; PULSE 72
== END 2020-11-03 01:40 | disposition home or self-care (01) ==
LOC: EC 22:13
DX: R60.0 Localized edema (principal); I10 Essential (primary) hypertension; J44.9 Chronic obstructive pulmonary disease, unspecified; K21.9 Gastro-esophageal reflux disease without esophagitis; F17.200 Nicotine dependence, unspecified, uncomplicated; Z88.2 Allergy status to sulfonamides; Z88.1 Allergy status to other antibiotic agents; Z79.51 Long term (current) use of inhaled steroids; Z79.899 Other long term (current) drug therapy
CPT/HCPCS: 99283; 96374; 36415; 83880; 80053; 85025; 71045; J1940; 99284

== ENCOUNTER 2020-11-22 12:49 | Inpatient (IN) | payer MEDICARE, OTHER ==
[2020-11-22] MEDS ORDERED: SODIUM CHLORIDE 0.9% 1,000 ML IV STA (16:14)
[2020-11-22] MEDS: ENOXAPARIN 40 MG/0.4 ML SYRINGE SQ SCH (16:53)
[2020-11-22 17:20] LABS: Basophils # (A) 0.1 k/uL (0-0.2); Basophils % (A) 1 %; Eosinophils # (A) 0.4 k/uL (0-0.7); Eosinophils % (A) 3 %; HCT 50.7 % (39.0-53.0); HGB 16.1 gm/dL (13.0-17.5); Lymphocytes # (A) 1.9 k/uL (1.0-4.8); Lymphocytes % (A) 15 %; MCH 26.6 pg (25.0-35.0); MCHC 31.8 g/dL (31.0-37.0); MCV 83.7 fL (80.0-100.0); Mean Platelet Volume 6.2; Monocytes # (A) 0.8 k/uL (0-1.0); Monocytes % (A) 6 %; Neutrophils # (A) 9.1 k/uL (1.3-7.7); Neutrophils % (A) 72 %; Platelet Count 272 k/uL (150-450); RBC 6.05 m/uL (4.30-5.90); RDW 13.8 % (11.5-15.5); WBC 12.6 k/uL (3.8-10.6)
[2020-11-22 17:27] LABS: ALT 29 U/L (4-49); AST 37 U/L (17-59); African American GFR (CKD) >90 (>60 ml/min/1.73 sqM); Albumin 4.4 g/dL (3.5-5.0); Albumin/Globulin Ratio 1.6; Alkaline Phosphatase 67 U/L (38-126); Anion Gap 10 mmol/L; Blood Urea Nitrogen 15 mg/dL (9-20); Carbon Dioxide 27 mmol/L (22-30); Chloride 99 mmol/L (98-107); Globulin 2.8 g/dL; Glucose 89 mg/dL (74-99); Non-African American GFR(CKD) 89 (>60 ml/min/1.73 sqM); Potassium 4.5 mmol/L (3.5-5.1); Sodium 136 mmol/L (137-145); Total Bilirubin 0.3 mg/dL (0.2-1.3); Total Protein 7.2 g/dL (6.3-8.2)
[2020-11-22] MEDS: HYDROcodone/APAP 10-325MG 1 EACH TAB PO PRN (18:49)
[2020-11-22] MEDS ORDERED: ALBUTEROL NEBULIZED 2.5 MG/3 ML INHALATION PRN (21:06)
[2020-11-22] MEDS: NICOTINE 14MG/24HR PATCH TRANSDERM SCH (21:34)
[2020-11-22] MEDS: BACLOFEN 10 MG TAB PO SCH (21:34)
[2020-11-22] MEDS: traZODone HCL 50 MG TAB PO SCH (21:34)
[2020-11-22] MEDS: GABAPENTIN 400 MG CAP PO SCH (21:35)
[2020-11-22] MEDS: INTELENCE 200 MG PO SCH (23:33)
[2020-11-22] MEDS: IPRATROPIUM BROMIDE 0.06% NASAL SPRAY (15 ML) EA NOSTRIL SCH (23:33)
[2020-11-22 23:36] LABS: Glucose,Whole Blood 87 mg/dL (75-99)
[2020-11-22 23:59] LABS: Hemoglobin A1C 6.4 % (4.0-6.0)
[2020-11-23] MEDS: IPRATROPIUM BROMIDE 0.06% NASAL SPRAY (15 ML) EA NOSTRIL SCH ×6 (01:31→21:26)
[2020-11-23] MEDS: HYDROcodone/APAP 10-325MG 1 EACH TAB PO PRN ×4 (02:37→20:19)
[2020-11-23 05:48] LABS: Basophils # (A) 0.1 k/uL (0-0.2); Basophils % (A) 1 %; Eosinophils # (A) 0.4 k/uL (0-0.7); Eosinophils % (A) 4 %; HCT 43.5 % (39.0-53.0); HGB 14.9 gm/dL (13.0-17.5); Hypochromasia Slight; Lymphocytes # (A) 1.2 k/uL (1.0-4.8); Lymphocytes % (A) 12 %; MCH 29.2 pg (25.0-35.0); MCHC 34.2 g/dL (31.0-37.0); MCV 85.6 fL (80.0-100.0); Mean Platelet Volume 6.3; Monocytes # (A) 0.7 k/uL (0-1.0); Monocytes % (A) 7 %; Neutrophils # (A) 7.3 k/uL (1.3-7.7); Neutrophils % (A) 74 %; Platelet Count 249 k/uL (150-450); RBC 5.08 m/uL (4.30-5.90); WBC 9.9 k/uL (3.8-10.6)
[2020-11-23] MEDS: LEVOTHYROXINE 25 MCG TAB PO SCH (06:21)
[2020-11-23] MEDS: LORATADINE 10 MG TAB PO SCH (08:02)
[2020-11-23] MEDS: lisinopriL 10 MG TAB PO SCH (08:02)
[2020-11-23] MEDS: BACLOFEN 10 MG TAB PO SCH ×3 (08:02→21:28)
[2020-11-23] MEDS: CITALOPRAM HYDROBROMIDE 20 MG TAB PO SCH (08:03)
[2020-11-23] MEDS: DILTIAZEM CD 180 MG CAP.ER.24H PO SCH (08:03)
[2020-11-23] MEDS: GABAPENTIN 400 MG CAP PO SCH ×3 (08:03→21:29)
[2020-11-23] MEDS: ENOXAPARIN 40 MG/0.4 ML SYRINGE SQ SCH ×2 (08:03→08:21)
[2020-11-23] MEDS: TRIAMTERENE-HCTZ 37.5-25MG 1 EACH TAB PO SCH (08:03)
[2020-11-23] MEDS: DOLUTEGRAVIR SODIUM 50 MG PO SCH (08:04)
[2020-11-23] MEDS: INTELENCE 200 MG PO SCH ×2 (08:04→20:22)
[2020-11-23] MEDS: NON FORMULARY DRUG (Emtricitabine/Tenofov Alafenam [Descovy 200-25 Mg Tablet] 1 EACH Table PO SCH (08:05)
[2020-11-23] MEDS: buPROPion XL 300 MG TAB.ER.24H PO SCH (08:05)
[2020-11-23] MEDS: MUPIROCIN 2% OINT 22 GM TUBE TOPICAL SCH (08:05)
[2020-11-23] MEDS: PANTOPRAZOLE 40 MG TABLET PO SCH (08:09)
[2020-11-23] MEDS: IPRATROPIUM 0.5 MG/2.5 ML NEBU INHALATION SCH ×4 (08:13→19:38)
[2020-11-23] MEDS: NICOTINE 14MG/24HR PATCH TRANSDERM SCH (08:19)
[2020-11-23] MEDS ORDERED: PANTOPRAZOLE 40 MG TABLET PO SCH (09:00)
[2020-11-23 10:48] LABS: African American GFR (CKD) 95.7 (60.0-200.0); Albumin/Globulin Ratio 1.82 (1.60-3.17); Anion Gap 4.8 mmol/L (4.00-12.00); Carbon Dioxide 28.2 mmol/L (21.6-31.8); Globulin 2.2 g/dL (1.6-3.3); Non-African American GFR(CKD) 82.6 (60.0-200.0); Potassium 4.5 mmol/L (3.5-5.5); Total Bilirubin 0.4 mg/dL (0.3-1.2); Total Protein 6.2 g/dL (6.2-8.2)
--- NOTE | 2020-11-23 11:07 | P.HPIM ---
History of Present Illness H&P Date: 11/23/20 Jack Luna, is a 60-year-old male who presented to the office with bilateral lower extremity swelling erythema and tenderness right lower extremity worse than the left, he was treated as outpatient with oral Keflex 500 mg every 6 hours for 10 days he returned to the office with minimal improvement he was then admitted directly to [facility] medical floor he was started on IV antibiotics, infectious disease consultation was requested. On presentation to the hospital vital examination reveals a temperature of 98.1 pulse 98 respiration 21 blood pressure 109/72 pulse ox 94% on room air, laboratory data revealed a white blood count of 12.6 hemoglobin 16.1 platelet count 272 sodium 136 potassium 4.5 chloride 99 CO2 27 BUN 15 creatinine 0.94 A1c was 6.4 AST and ALT are within normal limits. On review of systems Patient is alert and oriented x 3 in no distress, he is complaining of back pain and complaining of bilateral lower extremity pain otherwise he denies any complaints there is no fever or chills no headache or dizziness no chest pain no shortness of breath no palpitation no cough no nausea or vomiting no abdominal pain no diarrhea no blood in the stools no burning with urination no frequency or urgency and no hematuria, there is no weakness or numbness in any of the extremities no change in vision speech or gait. His past medical history is significant for history of hypertension, history of hyperlipidemia, history of hypothyroidism, history of COPD, history of HIV AIDS positive, history of depression with anxiety disorder, history of borderline diabetes mellitus, and history of tobacco abuse. Past Medical History Past Medical History: COPD, GERD/Reflux, Hypertension, Osteoarthritis (OA) Additional Past Medical History / Comment(s): HIV/AIDS(1990) back pain, neuropathy,sleep apnea History of Any Multi-Drug Resistant Organisms: None Reported Additional Past Surgical History / Comment(s): neck surgery, throat surgery Past Anesthesia/Blood Transfusion Reactions: No Reported Reaction Past Psychological History: Bipolar, Depression, Panic Disorder Additional Psychological History / Comment(s): Pt resides alone in an apartment. He uses a walker to ambulate. He is disabled. He drives. Smoking Status: Current every day smoker Past Alcohol Use History: Occasional Additional Past Alcohol Use History / Comment(s): Pt started smoking in 1976 and is about a ppd smoker. He occasionally drinks alcohol-black Tugende radha. Past Drug Use History: None Reported - Past Family History Brother(s) Family Medical History: Diabetes Mellitus Father Family Medical History: Cancer Additional Family Medical History / Comment(s): Father of throat cancer. Mother Additional Family Medical History / Comment(s): Mother of a ruptured brain aneurysm. Medications and Allergies Home Medications Medication Instructions Recorded Confirmed Type Quinapril HCl [Accupril] 10 mg PO DAILY 05/31/16 11/22/20 History Dolutegravir Sodium [Tivicay] 50 mg PO DAILY 09/01/18 11/22/20 History Emtricitabine/Tenofov Alafenam 1 tab PO DAILY 09/01/18 11/22/20 History [Descovy 200-25 mg Tablet] Levothyroxine Sodium [Synthroid] 25 mcg PO DAILY 09/01/18 11/22/20 History buPROPion HCL [Wellbutrin XL] 300 mg PO DAILY 09/01/18 11/22/20 History traZODone HCL 150 mg PO HS 09/01/18 11/22/20 History Citalopram Hydrobromide [CeleXA] 40 mg PO DAILY 03/31/19 11/22/20 History Diltiazem HCl [Diltiazem HCl 24Hr 360 mg PO DAILY 03/31/19 11/22/20 History ER] Intelence 200mg 200 mg PO BID 03/31/19 11/22/20 History Mupirocin 2% Oint [Bactroban 2% 1 applic TOPICAL DAILY 03/31/19 11/22/20 History Oint] Umeclidinium [place] [Incruse 1 puff INHALATION RT-DAILY 03/31/19 11/22/20 History Ellipta] Ipratropium [place] 0.06%Nasal 1 spray EA NOSTRIL Q4H 06/09/19 11/22/20 History [Atrovent Nasal 0.06%] Albuterol Inhaler [Ventolin Hfa 2 puff INHALATION RT-QID PRN 11/22/20 11/22/20 History Inhaler] Baclofen [Lioresal] 20 mg PO TID 11/22/20 11/22/20 History Cephalexin [Keflex] 500 mg PO Q6H 11/22/20 11/22/20 History Cetirizine HCl [Zyrtec] 10 mg PO DAILY 11/22/20 11/22/20 History Gabapentin 800 mg PO TID 11/22/20 11/22/20 History HYDROcodone/APAP 10-325MG [[place] 1 tab PO QID PRN 11/22/20 11/22/20 History 10-325] Pantoprazole Sodium [Protonix] 40 mg PO DAILY 11/22/20 11/22/20 History Triamterene/Hydrochlorothiazid 1 tab PO DAILY 11/22/20 11/22/20 History [Triamterene-Hctz 37.5-25 mg Tb] Allergies Allergy/AdvReac Type Severity Reaction Status Date / Time azithromycin Allergy Rash/Hives Verified 11/22/20 18:13 [From Zithromax Z-Simone] Sulfa (Sulfonamide Allergy Rash/Hives Verified 11/22/20 18:13 Antibiotics) Physical Exam Vitals: Vital Signs Temp Pulse Resp BP Pulse Ox 11/23/20 04:50 97.7 F 59 L 20 120/74 89 L 11/22/20 20:00 97.4 F L 88 16 136/76 92 L 11/22/20 16:41 98 21 11/22/20 14:56 98.1 F 98 21 109/72 94 L Intake and Output 11/22/20 11/23/20 11/23/20 22:59 06:59 14:59 Intake Total 240 Balance 240 Intake: Oral 240 Other: Voiding Method Toilet # Voids 3 In general patient is alert and oriented x 3 in no distress HEENT head normocephalic and atraumatic Neck is supple no JVD no goiter no lymphadenopathy no carotid bruit Chest examination is clear to auscultation no crackles no wheezing Cardiac exam reveals regular heart sounds S1 and S2 no gallops no murmurs Abdomen is soft nontender no organomegaly with normal bowel sounds Extremity exam reveals bilateral lower extremity pretibial edema with erythema and tenderness right worse than left extending from the ankle all the way to below the knee Neurological examination reveals no gross focal deficits Results CBC & Chem 7: 11/23/20 04:56 11/23/20 04:56 Labs: Abnormal Lab Results - Last 24 Hours (Table) 11/22/20 11/22/20 11/22/20 Range/Units 17:05 17:05 17:05 WBC 12.6 H (3.8-10.6) k/uL RBC 6.05 H (4.30-5.90) m/uL Neutrophils # 9.1 H (1.3-7.7) k/uL Sodium 136 L (137-145) mmol/L Glucose (70-110) mg/dL Hemoglobin A1c 6.4 H (4.0-6.0) % 11/23/20 Range/Units 04:56 WBC (3.8-10.6) k/uL RBC (4.30-5.90) m/uL Neutrophils # (1.3-7.7) k/uL Sodium (137-145) mmol/L Glucose 144 H (70-110) mg/dL Hemoglobin A1c (4.0-6.0) % Thrombosis Risk Factor Assmnt - Choose All That Apply Each Factor Represents 1 point: Age 41-60 years Thrombosis Risk Factor Assessment Total Risk Factor Score: 1 Thrombosis Risk Factor Assessment Level: Low Risk Assessment and Plan Plan: 1. Bilateral lower extremity cellulitis, failed outpatient therapy with oral antibiotics 2. Underlying history of positive HIV 3. Underlying history of borderline diabetes mellitus, hemoglobin A1c on presentation 6.4 4. Underlying history of COPD 5. Underlying history of hypertension 6. Underlying history of hypothyroidism 7. Underlying history of hyperlipidemia 8. Continued history of tobacco abuse At this time patient is admitted to medical floor, he was started on IV antibiotics cefazolin 1 g every 8 hours Infectious disease consultation was requested Home medications reviewed and reordered. Patient was counseled in length in regards to smoking cessation he was started on nicotine patch Will follow closely
--- NOTE | 2020-11-23 11:48 | XR ---
EXAMINATION TYPE: XR chest 1V portable DATE OF EXAM: 11/23/2020 COMPARISON: Shortness of breath HISTORY: 11/02/2020 TECHNIQUE: Single frontal view of the chest is obtained. FINDINGS: Hyperinflation compatible COPD and there is postoperative change Cervical line. Heart size is prominent there is bibasilar subsegmental consolidation. Technique limit s the exam. Biapical pleural thickening with no obvious pneumothorax. No sizable pleural effusion. IMPRESSION: 1. COPD with bibasilar atelectasis versus infiltrate.
--- NOTE | 2020-11-23 13:07 | US ---
EXAMINATION TYPE: US venous doppler duplex LE BI DATE OF EXAM: 11/23/2020 11:43 AM COMPARISON: 10/23/2020 CLINICAL HISTORY: LE Swelling . Exam done portable. SIDE PERFORMED: Bilateral TECHNIQUE: The lower extremity deep venous system is examined utilizing real time linear array sonog bridget with graded compression, doppler sonography and color-flow sonography. VESSELS IMAGED: Common Femoral Vein Deep Femoral Vein Greater Saphenous Vein * Femoral Vein Popliteal Vein Small Saphenous Vein * Proximal Calf Veins (* superficial vessels) Right Leg: Appears negative for DVT Left Leg: Appears negative for DVT IMPRESSION: Grayscale, color doppler, spectral doppler imaging performed of the deep veins of the lo wer extremities. There is normal flow, compressibility, vascular waveforms.
[2020-11-23] MEDS ORDERED: CALCIUM CARBONATE 500 MG CHEWABLE PO PRN (16:10)
--- NOTE | 2020-11-23 17:15 | CONS ---
CONSULTATION DATE OF SERVICE: 11/23/2020 REASON FOR CONSULTATION: Bilateral lower extremity cellulitis. HISTORY OF PRESENT ILLNESS: The patient is a 60-year-old male with a past medical history significant for bilateral lower extremity venostasis dermatitis and history of recurrent cellulitis. The patient has been apparently treated in outpatient setting for right lower extremity cellulitis with oral Keflex without any improvement. The patient seemed to have increasing swelling and redness to the right leg, more than left leg. He has been complaining of pain to the right leg to be more of a burning in nature, intensity about 5 to 6/10 no radiation. The patient is currently does not have any open wound or any drainage. With these symptoms, the patient was evaluated by his primary care physician and the patient was admitted to the hospital. On admission to the hospital, the patient was afebrile. The patient did have white count of 12.6, creatinine was normal. The patient has been started on cefazolin 1 g every 8 hours and admitted to the hospital. Infectious Disease was consulted for further management of antibiotic therapy. The patient did have chest x-ray with COPD with bibasilar atelectasis versus infiltrate and the patient did have a lower extremity Doppler that has been negative for DVT. REVIEW OF SYSTEMS: Positive points have been mentioned in HPI. Rest of systems are negative. PAST MEDICAL HISTORY: COPD, gastroesophageal reflux disease, hypertension, osteoarthritis, HIV/AIDS, bipolar depression, panic disorder. PAST SURGICAL HISTORY: Neck surgery. SOCIAL HISTORY: Positive for smoking. Occasionally drinks. No drug use. FAMILY HISTORY: Father with history of throat cancer. Mother from ruptured brain aneurysm. ALLERGIES TO: SULFA AND AZITHROMYCIN. MEDICATIONS: The patient is currently on Mos[place], Ventolin, baclofen, Wellbutrin, cefazolin 1 g q.8 hours and Celexa, Cardizem, Lovenox, Neurontin, Zestril, Claritin, the patient is Descovy TVK. PHYSICAL EXAMINATION: On examination blood pressure 115/72 with a pulse of 73, temperature 98. He is 98% on room air. GENERAL DESCRIPTION: The patient is a middle-aged male up in the chair in no distress. No tachypnea or accessory muscles of respiration use. HEENT: Examination shows no pallor or scleral icterus. Oral mucous membranes dry. NECK: Trachea central. No thyromegaly. LUNGS unlabored breathing. Clear to auscultation with no wheeze or crackles. HEART: S1, S2. Regular rate and rhythm. ABDOMEN: Soft, no tenderness. Right lower extremity did have diffuse swelling and redness. Slightly warm to touch. No open wound or any drainage. NEUROLOGICAL: Patient is awake, alert, and oriented times three. Mood and affect normal. LABS: Hemoglobin is 14.8, white count 12.6 with left shift. BUN of 15, creatinine 0.94. Liver enzymes are normal. Electrolytes are normal. DIAGNOSTIC IMPRESSION AND PLAN: 1. Patient with acute right lower extremity cellulitis and some component of cellulitis of the left leg failing outpatient oral Keflex therapy with diffuse swelling and redness likely source is streptococcal disease. Clinically doubt MRSA or any gram-negative infection. 2. Patient with HIV/AIDS. PLAN: 1. We will increase the dose of cefazolin 2 grams q.8 hours. 2. We will continue the patient on his Descovy and TVK and check a CD4 count. 3. We will follow on clinical condition and further adjust medication if needed. Thank you for this consultation. Will follow this patient along with you. MMODL / IJN: [id number] /
[2020-11-23] MEDS: traZODone HCL 50 MG TAB PO SCH (22:45)
[2020-11-24] MEDS: IPRATROPIUM BROMIDE 0.06% NASAL SPRAY (15 ML) EA NOSTRIL SCH ×6 (03:40→23:52)
[2020-11-24] MEDS: HYDROcodone/APAP 10-325MG 1 EACH TAB PO PRN ×4 (03:44→21:34)
[2020-11-24 04:01] LABS: Basophils # (A) 0.1 k/uL (0-0.2); Basophils % (A) 1 %; Eosinophils # (A) 0.5 k/uL (0-0.7); Eosinophils % (A) 5 %; HCT 45.6 % (39.0-53.0); Lymphocytes # (A) 1.4 k/uL (1.0-4.8); Lymphocytes % (A) 15 %; MCH 28.1 pg (25.0-35.0); Mean Platelet Volume 6.2; Monocytes # (A) 0.8 k/uL (0-1.0); Monocytes % (A) 9 %; Neutrophils # (A) 6.2 k/uL (1.3-7.7); Neutrophils % (A) 67 %; Platelet Count 260 k/uL (150-450); RBC 5.36 m/uL (4.30-5.90); RDW 13.7 % (11.5-15.5); WBC 9.2 k/uL (3.8-10.6)
[2020-11-24] MEDS: LEVOTHYROXINE 25 MCG TAB PO SCH (05:44)
[2020-11-24] MEDS: IPRATROPIUM 0.5 MG/2.5 ML NEBU INHALATION SCH ×4 (07:26→20:25)
[2020-11-24] MEDS: ENOXAPARIN 40 MG/0.4 ML SYRINGE SQ SCH (07:43)
[2020-11-24] MEDS: GABAPENTIN 400 MG CAP PO SCH ×3 (07:44→21:34)
[2020-11-24] MEDS: CITALOPRAM HYDROBROMIDE 20 MG TAB PO SCH ×2 (07:44→07:49)
[2020-11-24] MEDS: DILTIAZEM CD 180 MG CAP.ER.24H PO SCH (07:44)
[2020-11-24] MEDS: PANTOPRAZOLE 40 MG TABLET PO SCH (07:45)
[2020-11-24] MEDS: TRIAMTERENE-HCTZ 37.5-25MG 1 EACH TAB PO SCH (07:45)
[2020-11-24] MEDS: lisinopriL 10 MG TAB PO SCH (07:45)
[2020-11-24] MEDS: buPROPion XL 300 MG TAB.ER.24H PO SCH (07:45)
[2020-11-24] MEDS: BACLOFEN 10 MG TAB PO SCH ×3 (07:45→21:34)
[2020-11-24] MEDS: NICOTINE 14MG/24HR PATCH TRANSDERM SCH (07:45)
[2020-11-24] MEDS: LORATADINE 10 MG TAB PO SCH (07:45)
[2020-11-24] MEDS: DOLUTEGRAVIR SODIUM 50 MG PO SCH (07:46)
[2020-11-24] MEDS: MUPIROCIN 2% OINT 22 GM TUBE TOPICAL SCH (07:46)
[2020-11-24] MEDS: NON FORMULARY DRUG (Emtricitabine/Tenofov Alafenam [Descovy 200-25 Mg Tablet] 1 EACH Table PO SCH (07:46)
[2020-11-24] MEDS: INTELENCE 200 MG PO SCH ×2 (07:47→21:35)
[2020-11-24 10:13] LABS: African American GFR (CKD) 85.3 (60.0-200.0); Albumin/Globulin Ratio 1.74 (1.60-3.17); Anion Gap 7.3 mmol/L (4.00-12.00); BUN/Creat Ratio 14.55 Ratio (12.00-20.00); Calcium 9.5 mg/dL (8.7-10.3); Carbon Dioxide 28.7 mmol/L (21.6-31.8); Globulin 2.3 g/dL (1.6-3.3); Non-African American GFR(CKD) 73.6 (60.0-200.0); Potassium 4.7 mmol/L (3.5-5.5); Total Bilirubin 0.3 mg/dL (0.3-1.2); Total Protein 6.3 g/dL (6.2-8.2)
--- NOTE | 2020-11-24 13:51 | P.PN ---
Subjective Progress Note Date: 11/24/20 Jack Luna, is a 60-year-old male who presented to the office with bilateral lower extremity swelling erythema and tenderness right lower extremity worse than the left, he was treated as outpatient with oral Keflex 500 mg every 6 hours for 10 days he returned to the office with minimal improvement he was then admitted directly to [facility] medical floor he was started on IV antibiotics, infectious disease consultation was requested. On presentation to the hospital vital examination reveals a temperature of 98.1 pulse 98 respiration 21 blood pressure 109/72 pulse ox 94% on room air, laboratory data revealed a white blood count of 12.6 hemoglobin 16.1 platelet count 272 sodium 136 potassium 4.5 chloride 99 CO2 27 BUN 15 creatinine 0.94 A1c was 6.4 AST and ALT are within normal limits. On review of systems Patient is alert and oriented x 3 in no distress, he is complaining of back pain and complaining of bilateral lower extremity pain otherwise he denies any complaints there is no fever or chills no headache or dizziness no chest pain no shortness of breath no palpitation no cough no nausea or vomiting no abdominal pain no diarrhea no blood in the stools no burning with urination no frequency or urgency and no hematuria, there is no weakness or numbness in any of the extremities no change in vision speech or gait. His past medical history is significant for history of hypertension, history of hyperlipidemia, history of hypothyroidism, history of COPD, history of HIV AIDS positive, history of depression with anxiety disorder, history of borderline diabetes mellitus, and history of tobacco abuse. On 11/24/2020 Patient was seen and examined on the medical floor, he is alert and oriented x 3 in no distress, he denies any complaints there is no fever or chills no headache or dizziness no chest pain no shortness of breath no palpitation no cough no nausea or vomiting no abdominal pain no diarrhea no blood in the stools no burning with urination no frequency or urgency and no hematuria, there is no weakness or numbness in any of the extremities no change in vision speech or gait. Bilateral lower extremity erythema and swelling improving, bilateral lower extremity Doppler was negative for DVT. Patient was evaluated by infectious disease Dr. Agudelo and he increased dose of cefazolin to 2 g IV every 8 hours will continue with same regimen will recheck in a.m., patient is improving gradually Objective - Vital Signs Vital signs: Vital Signs Temp 98.2 F 11/24/20 05:00 Pulse 68 11/24/20 10:50 Resp 16 11/24/20 05:00 BP 118/62 11/24/20 05:00 Pulse Ox 92 L 11/24/20 05:00 Intake & Output 11/23/20 11/24/20 11/24/20 18:59 06:59 18:59 Intake Total 640 240 Balance 640 240 Intake: Intake, IV Titration 50 Amount ceFAZolin 2 gm In Sodium 50 Chloride 0.9% 50 ml @ 100 mls/hr IVPB Q8HR [facility] Rx# :[id number] Oral 590 240 Other: Voiding Method Toilet # Voids 2 2 - Exam In general patient is alert and oriented x 3 in no distress HEENT head normocephalic and atraumatic Neck is supple no JVD no goiter no lymphadenopathy no carotid bruit Chest examination is clear to auscultation no crackles no wheezing Cardiac exam reveals regular heart sounds S1 and S2 no gallops no murmurs Abdomen is soft nontender no organomegaly with normal bowel sounds Extremity exam reveals bilateral lower extremity pretibial edema with erythema and tenderness right worse than left extending from the ankle all the way to below the knee Neurological examination reveals no gross focal deficits - Labs CBC & Chem 7: 11/24/20 03:20 11/24/20 03:20 Labs: Abnormal Lab Results - Last 24 Hours (Table) 11/24/20 Range/Units 03:20 Glucose 127 H (70-110) mg/dL Microbiology - Last 24 Hours (Table) 11/22/20 17:05 Blood Culture - Preliminary Blood No Growth after 24 hours Assessment and Plan Plan: 1. Bilateral lower extremity cellulitis, failed outpatient therapy with oral antibiotics 2. Underlying history of positive HIV 3. Underlying history of borderline diabetes mellitus, hemoglobin A1c on presentation 6.4 4. Underlying history of COPD 5. Underlying history of hypertension 6. Underlying history of hypothyroidism 7. Underlying history of hyperlipidemia 8. Continued history of tobacco abuse At this time patient is admitted to medical floor, he was started on IV antibiotics cefazolin 1 g every 8 hours Infectious disease consultation was requested Home medications reviewed and reordered. Patient was counseled in length in regards to smoking cessation he was started on nicotine patch Will follow closely
[2020-11-24] MEDS: polyethylene glycoL 3350 17 GM POWD.PACK PO SCH (21:34)
[2020-11-24] MEDS: traZODone HCL 50 MG TAB PO SCH (22:52)
[2020-11-25] MEDS: IPRATROPIUM BROMIDE 0.06% NASAL SPRAY (15 ML) EA NOSTRIL SCH ×5 (03:20→20:45)
[2020-11-25] MEDS: LEVOTHYROXINE 25 MCG TAB PO SCH (05:47)
[2020-11-25 06:07] LABS: Basophils # (A) 0.1 k/uL (0-0.2); Basophils % (A) 1 %; Eosinophils # (A) 0.3 k/uL (0-0.7); Eosinophils % (A) 3 %; HCT 44.6 % (39.0-53.0); Lymphocytes # (A) 1.2 k/uL (1.0-4.8); Lymphocytes % (A) 12 %; MCH 28.1 pg (25.0-35.0); MCHC 33.6 g/dL (31.0-37.0); MCV 83.6 fL (80.0-100.0); Mean Platelet Volume 6.2; Monocytes # (A) 0.8 k/uL (0-1.0); Monocytes % (A) 8 %; Neutrophils # (A) 7.7 k/uL (1.3-7.7); Neutrophils % (A) 74 %; Platelet Count 265 k/uL (150-450); RBC 5.34 m/uL (4.30-5.90); RDW 13.5 % (11.5-15.5); WBC 10.4 k/uL (3.8-10.6)
[2020-11-25] MEDS: IPRATROPIUM 0.5 MG/2.5 ML NEBU INHALATION SCH ×5 (07:22→19:23)
[2020-11-25] MEDS: GABAPENTIN 400 MG CAP PO SCH ×3 (07:26→21:08)
[2020-11-25] MEDS: polyethylene glycoL 3350 17 GM POWD.PACK PO SCH (07:26)
[2020-11-25] MEDS: ENOXAPARIN 40 MG/0.4 ML SYRINGE SQ SCH (07:26)
[2020-11-25] MEDS: buPROPion XL 300 MG TAB.ER.24H PO SCH (07:27)
[2020-11-25] MEDS: lisinopriL 10 MG TAB PO SCH (07:27)
[2020-11-25] MEDS: TRIAMTERENE-HCTZ 37.5-25MG 1 EACH TAB PO SCH (07:27)
[2020-11-25] MEDS: PANTOPRAZOLE 40 MG TABLET PO SCH (07:27)
[2020-11-25] MEDS: DILTIAZEM CD 180 MG CAP.ER.24H PO SCH (07:27)
[2020-11-25] MEDS: CITALOPRAM HYDROBROMIDE 20 MG TAB PO SCH (07:27)
[2020-11-25] MEDS: BACLOFEN 10 MG TAB PO SCH ×3 (07:27→21:08)
[2020-11-25] MEDS: NON FORMULARY DRUG (Emtricitabine/Tenofov Alafenam [Descovy 200-25 Mg Tablet] 1 EACH Table PO SCH (07:28)
[2020-11-25] MEDS: LORATADINE 10 MG TAB PO SCH (07:28)
[2020-11-25] MEDS: INTELENCE 200 MG PO SCH ×2 (07:28→21:09)
[2020-11-25] MEDS: DOLUTEGRAVIR SODIUM 50 MG PO SCH (07:29)
[2020-11-25] MEDS: NICOTINE 14MG/24HR PATCH TRANSDERM SCH (07:29)
[2020-11-25] MEDS: MUPIROCIN 2% OINT 22 GM TUBE TOPICAL SCH (07:29)
[2020-11-25] MEDS: HYDROcodone/APAP 10-325MG 1 EACH TAB PO PRN ×3 (07:29→21:09)
--- NOTE | 2020-11-25 07:58 | PN ---
PROGRESS NOTE DATE OF SERVICE: 11/24/2020 REASON FOR FOLLOWUP: 1. Bilateral lower extremity cellulitis, right greater than left. 2. HIV. INTERVAL HISTORY: Patient is afebrile. The patient is breathing comfortably. Denies any chest pain, cough, abdominal pain, or any worsening pain to the lower extremity. PHYSICAL EXAMINATION: Blood pressure 126/78 with a pulse of 77, temperature 97.9. He is 91% on room air. General description is a middle-aged male lying in in no distress. Respiratory system: Unlabored breathing, clear to auscultation anteriorly. Heart S1, S2. Regular rate and rhythm. Abdomen is soft, no tenderness. Right lower extremity swelling has decreased. LABS: Hemoglobin is 15, white count 9.2, BUN of 16, creatinine is 1.1. Blood culture has been negative. DIAGNOSTIC IMPRESSION AND PLAN: 1. Patient with bilateral lower extremity cellulitis, right greater than left. Overall responding to Zosyn to continue to finish therapy with oral Keflex. 2. Patient with HIV, however, the patient is currently on Tivicay, Descovy and Intelence to continue. The patient will need a CD4 count, viral load in outpatient setting and close outpatient followup. MMODL / IJN: [id number] /
--- NOTE | 2020-11-25 09:12 | P.PN ---
Subjective Progress Note Date: 11/25/20 Jack Luna, is a 60-year-old male who presented to the office with bilateral lower extremity swelling erythema and tenderness right lower extremity worse than the left, he was treated as outpatient with oral Keflex 500 mg every 6 hours for 10 days he returned to the office with minimal improvement he was then admitted directly to [facility] medical floor he was started on IV antibiotics, infectious disease consultation was requested. On presentation to the hospital vital examination reveals a temperature of 98.1 pulse 98 respiration 21 blood pressure 109/72 pulse ox 94% on room air, laboratory data revealed a white blood count of 12.6 hemoglobin 16.1 platelet count 272 sodium 136 potassium 4.5 chloride 99 CO2 27 BUN 15 creatinine 0.94 A1c was 6.4 AST and ALT are within normal limits. On review of systems Patient is alert and oriented x 3 in no distress, he is complaining of back pain and complaining of bilateral lower extremity pain otherwise he denies any complaints there is no fever or chills no headache or dizziness no chest pain no shortness of breath no palpitation no cough no nausea or vomiting no abdominal pain no diarrhea no blood in the stools no burning with urination no frequency or urgency and no hematuria, there is no weakness or numbness in any of the extremities no change in vision speech or gait. His past medical history is significant for history of hypertension, history of hyperlipidemia, history of hypothyroidism, history of COPD, history of HIV AIDS positive, history of depression with anxiety disorder, history of borderline diabetes mellitus, and history of tobacco abuse. On 11/24/2020 Patient was seen and examined on the medical floor, he is alert and oriented x 3 in no distress, he denies any complaints there is no fever or chills no headache or dizziness no chest pain no shortness of breath no palpitation no cough no nausea or vomiting no abdominal pain no diarrhea no blood in the stools no burning with urination no frequency or urgency and no hematuria, there is no weakness or numbness in any of the extremities no change in vision speech or gait. Bilateral lower extremity erythema and swelling improving, bilateral lower extremity Doppler was negative for DVT. Patient was evaluated by infectious disease Dr. Agudelo and he increased dose of cefazolin to 2 g IV every 8 hours will continue with same regimen will recheck in a.m., patient is improving gradually On 11/25/2020 patient is alert and oriented times. Patient remains on Cefazolin 2 g every 8 hours. Left leg improving. Right leg slightly improved. Temp 98.7 blood pressure 134/90 heart rate 93. At this time patient denies chest pain or shortness of breath. Patient denies nausea vomiting or diarrhea. Patient denies any urinary burning or frequency Objective - Vital Signs Vital signs: Vital Signs Temp 98.7 F 11/25/20 05:00 Pulse 93 11/25/20 07:25 Resp 20 11/25/20 05:00 BP 134/90 11/25/20 07:25 Pulse Ox 91 L 11/25/20 05:00 Intake & Output 11/24/20 11/25/20 11/25/20 18:59 06:59 18:59 Intake Total 1780 640 Output Total 400 Balance 1380 640 Intake: Intake, IV Titration 100 50 Amount ceFAZolin 2 gm In Sodium 100 50 Chloride 0.9% 50 ml @ 100 mls/hr IVPB Q8HR [facility] Rx# :[id number] Oral 1680 590 Output: Urine 400 Other: Voiding Method Toilet # Voids 3 - Exam In general patient is alert and oriented x 3 in no distress HEENT head normocephalic and atraumatic Neck is supple no JVD no goiter no lymphadenopathy no carotid bruit Chest examination is clear to auscultation no crackles no wheezing Cardiac exam reveals regular heart sounds S1 and S2 no gallops no murmurs Abdomen is soft nontender no organomegaly with normal bowel sounds Extremity exam reveals bilateral lower extremity pretibial edema with erythema and tenderness right worse than left extending from the ankle all the way to below the knee Neurological examination reveals no gross focal deficits - Labs CBC & Chem 7: 11/25/20 05:45 11/24/20 03:20 Labs: Abnormal Lab Results - Last 24 Hours (Table) 11/24/20 Range/Units 03:20 Glucose 127 H (70-110) mg/dL Microbiology - Last 24 Hours (Table) 11/22/20 17:05 Blood Culture - Preliminary Blood No Growth after 48 hours Assessment and Plan Plan: 1. Bilateral lower extremity cellulitis, failed outpatient therapy with oral antibiotics 2. Underlying history of positive HIV 3. Underlying history of borderline diabetes mellitus, hemoglobin A1c on pr esentation 6.4 4. Underlying history of COPD 5. Underlying history of hypertension 6. Underlying history of hypothyroidism 7. Underlying history of hyperlipidemia 8. Continued history of tobacco abuse At this time patient is admitted to medical floor, he was started on IV antibiotics cefazolin 1 g every 8 hours Infectious disease service following Home medications reviewed and reordered. Patient was counseled in length in regards to smoking cessation he was started on nicotine patch Will follow closely
[2020-11-25 09:44] LABS: African American GFR (CKD) 95.7 (60.0-200.0); Albumin 4.1 g/dL (3.80-4.90); Albumin/Globulin Ratio 1.86 (1.60-3.17); Anion Gap 7.5 mmol/L (4.00-12.00); Calcium 9.2 mg/dL (8.7-10.3); Carbon Dioxide 28.5 mmol/L (21.6-31.8); Globulin 2.2 g/dL (1.6-3.3); Non-African American GFR(CKD) 82.6 (60.0-200.0); Potassium 4.4 mmol/L (3.5-5.5); Total Bilirubin 0.4 mg/dL (0.3-1.2); Total Protein 6.3 g/dL (6.2-8.2)
--- NOTE | 2020-11-25 18:47 | PN ---
PROGRESS NOTE DATE OF SERVICE: 11/25/2020 REASON FOR FOLLOWUP: 1. Right lower extremity cellulitis. 2. HIV. INTERVAL HISTORY: The patient is afebrile. The patient is breathing comfortably. Denies having any chest pain, shortness of breath or cough. No abdominal pain or any worsening pain to the lower extremity. PHYSICAL EXAMINATION: Blood pressure is 115/70 with a pulse of 84, temperature 98.3, he is 92% on room air. General description is a middle-aged male lying in in no distress. Respiratory system: Unlabored breathing, clear to auscultation anteriorly. Heart S1, S2. Regular rate and rhythm. Abdomen is soft, no tenderness. Lower extremity swelling and redness has improved. No drainage. LABS: Hemoglobin is 15, white count 10.4, BUN of 14, creatinine 1.0. DIAGNOSTIC IMPRESSION AND PLAN: 1. Patient with bilateral lower extremity cellulitis, right greater than left. Overall improvement on cefazolin. Change to oral Keflex. 2. Patient with HIV for with the patient is currently covered Timax, Truvada and Intelence to continue. Further workup in outpatient setting. MMODL / IJN: [id number] /
[2020-11-25] MEDS: traZODone HCL 50 MG TAB PO SCH (22:23)
[2020-11-26] MEDS: IPRATROPIUM BROMIDE 0.06% NASAL SPRAY (15 ML) EA NOSTRIL SCH ×3 (03:01→07:46)
[2020-11-26 06:08] LABS: Basophils % (A) 0 %; Eosinophils # (A) 0.3 k/uL (0-0.7); Eosinophils % (A) 3 %; HCT 45.6 % (39.0-53.0); Lymphocytes # (A) 1.4 k/uL (1.0-4.8); Lymphocytes % (A) 15 %; MCH 27.7 pg (25.0-35.0); MCHC 32.8 g/dL (31.0-37.0); MCV 84.5 fL (80.0-100.0); Mean Platelet Volume 6.7; Monocytes # (A) 0.8 k/uL (0-1.0); Monocytes % (A) 9 %; Neutrophils # (A) 6.6 k/uL (1.3-7.7); Neutrophils % (A) 71 %; Platelet Count 242 k/uL (150-450); RDW 13.7 % (11.5-15.5); WBC 9.3 k/uL (3.8-10.6)
[2020-11-26] MEDS: LEVOTHYROXINE 25 MCG TAB PO SCH (06:13)
[2020-11-26] MEDS: HYDROcodone/APAP 10-325MG 1 EACH TAB PO PRN ×2 (06:24→12:37)
[2020-11-26] MEDS: IPRATROPIUM 0.5 MG/2.5 ML NEBU INHALATION SCH ×2 (07:28→11:14)
[2020-11-26] MEDS: PANTOPRAZOLE 40 MG TABLET PO SCH (07:38)
[2020-11-26] MEDS: lisinopriL 10 MG TAB PO SCH (07:38)
[2020-11-26] MEDS: buPROPion XL 300 MG TAB.ER.24H PO SCH (07:38)
[2020-11-26] MEDS: GABAPENTIN 400 MG CAP PO SCH (07:38)
[2020-11-26] MEDS: DILTIAZEM CD 180 MG CAP.ER.24H PO SCH (07:39)
[2020-11-26] MEDS: TRIAMTERENE-HCTZ 37.5-25MG 1 EACH TAB PO SCH (07:39)
[2020-11-26] MEDS: polyethylene glycoL 3350 17 GM POWD.PACK PO SCH (07:39)
[2020-11-26] MEDS: LORATADINE 10 MG TAB PO SCH (07:39)
[2020-11-26] MEDS: BACLOFEN 10 MG TAB PO SCH (07:39)
[2020-11-26] MEDS: DOLUTEGRAVIR SODIUM 50 MG PO SCH (07:42)
[2020-11-26] MEDS: INTELENCE 200 MG PO SCH (07:43)
[2020-11-26] MEDS: NON FORMULARY DRUG (Emtricitabine/Tenofov Alafenam [Descovy 200-25 Mg Tablet] 1 EACH Table PO SCH (07:44)
[2020-11-26] MEDS: NICOTINE 14MG/24HR PATCH TRANSDERM SCH (07:45)
[2020-11-26] MEDS: ENOXAPARIN 40 MG/0.4 ML SYRINGE SQ SCH (07:45)
[2020-11-26] MEDS: MUPIROCIN 2% OINT 22 GM TUBE TOPICAL SCH (07:45)
[2020-11-26] MEDS ORDERED: guaiFENesin 600 MG TABLET.ER PO SCH (09:00)
[2020-11-26 09:23] LABS: African American GFR (CKD) 76.8 (60.0-200.0); Albumin 4.2 g/dL (3.80-4.90); Albumin/Globulin Ratio 1.75 (1.60-3.17); Anion Gap 7.8 mmol/L (4.00-12.00); BUN/Creat Ratio 12.5 Ratio (12.00-20.00); Calcium 9.6 mg/dL (8.7-10.3); Carbon Dioxide 27.2 mmol/L (21.6-31.8); Globulin 2.4 g/dL (1.6-3.3); Non-African American GFR(CKD) 66.3 (60.0-200.0); Potassium 4.4 mmol/L (3.5-5.5); Total Bilirubin 0.3 mg/dL (0.3-1.2); Total Protein 6.6 g/dL (6.2-8.2)
[2020-11-26] MEDS ORDERED: HYDROcodone/APAP 10-325MG 1 EACH TAB PO PRN (13:06)
[2020-11-26] MEDS ORDERED: CEPHALEXIN 500 MG CAP PO SCH (13:15)
[2020-11-26 13:46] VITALS: BP 98/64; PULSE 79; RESP 18; TEMP 97.7
--- NOTE | 2020-11-26 13:49 | P.DS ---
Providers Date of admission: 11/22/20 14:16 Expected date of discharge: 11/26/20 Attending physician: Daniela Rojo Consults: 11/22/20 16:15 Consult Physician Routine Consulting Provider: Hoda Agudelo Consult Reason/Comments: bilateral LE cellulitis failed outpatient therapy Do you want consulting provider notified?: Yes Primary care physician: Daniela Rojo [facility] Course: Diagnosis on discharge: 1. Bilateral lower extremity cellulitis, failed outpatient therapy with oral antibiotics 2. Underlying history of positive HIV 3. Underlying history of borderline diabetes mellitus, hemoglobin A1c on presentation 6.4 4. Underlying history of COPD 5. Underlying history of hypertension 6. Underlying history of hypothyroidism 7. Underlying history of hyperlipidemia 8. Continued history of tobacco abuse Hospital course: Jack Luna, is a 60-year-old male who presented to the office with bilateral lower extremity swelling erythema and tenderness right lower extremity worse than the left, he was treated as outpatient with oral Keflex 500 mg every 6 hours for 10 days he returned to the office with minimal improvement he was then admitted directly to [facility] medical floor he was started on IV antibiotics, infectious disease consultation was requested. On presentation to the hospital vital examination reveals a temperature of 98.1 pulse 98 respiration 21 blood pressure 109/72 pulse ox 94% on room air, laboratory data revealed a white blood count of 12.6 hemoglobin 16.1 platelet count 272 sodium 136 potassium 4.5 chloride 99 CO2 27 BUN 15 creatinine 0.94 A1c was 6.4 AST and ALT are within normal limits. On review of systems Patient is alert and oriented x 3 in no distress, he is complaining of back pain and complaining of bilateral lower extremity pain otherwise he denies any complaints there is no fever or chills no headache or dizziness no chest pain no shortness of breath no palpitation no cough no nausea or vomiting no abdominal pain no diarrhea no blood in the stools no burning with urination no frequency or urgency and no hematuria, there is no weakness or numbness in any of the extremities no change in vision speech or gait. His past medical history is significant for history of hypertension, history of hyperlipidemia, history of hypothyroidism, history of COPD, history of HIV AIDS positive, history of depression with anxiety disorder, history of borderline diabetes mellitus, and history of tobacco abuse. On 11/24/2020 Patient was seen and examined on the medical floor, he is alert and oriented x 3 in no distress, he denies any complaints there is no fever or chills no headache or dizziness no chest pain no shortness of breath no palpitation no cough no nausea or vomiting no abdominal pain no diarrhea no blood in the stools no burning with urination no frequency or urgency and no hematuria, there is no weakness or numbness in any of the extremities no change in vision speech or gait. Bilateral lower extremity erythema and swelling improving, bilateral lower extremity Doppler was negative for DVT. Patient was evaluated by infectious disease Dr. Agudelo and he increased dose of cefazolin to 2 g IV every 8 hours will continue with same regimen will recheck in a.m., patient is improving gradually On 11/25/2020 patient is alert and oriented times. Patient remains on Cefazolin 2 g every 8 hours. Left leg improving. Right leg slightly improved. Temp 98.7 blood pressure 134/90 heart rate 93. At this time patient denies chest pain or shortness of breath. Patient denies nausea vomiting or diarrhea. Patient denies any urinary burning or frequency On 11/26/2020 Patient was seen and examined on the medical floor, he is alert an d oriented x 3 in no distress, he denies any complaints there is no fever or chills no headache or dizziness no chest pain no shortness of breath no palpitation no cough no nausea or vomiting no abdominal pain no diarrhea no blood in the stools no burning with urination no frequency or urgency and no hematuria, there is no weakness or numbness in any of the extremities no change in vision speech or gait. Lower extremity erythema and swelling improved significantly. At this time will discharge patient to home today Will resume oral Keflex 500 mg every 6 hours will follow up in the office in 2-3 days Plan - Discharge Summary New Discharge Prescriptions: New polyethylene glycoL 3350 [Miralax] 17 gm PO DAILY powd.pack Nicotine 14Mg/24Hr Patch [Habitrol] 1 patch TRANSDERM DAILY patch guaiFENesin [Mucinex] 600 mg PO DAILY tablet.er Continue Quinapril HCl [Accupril] 10 mg PO DAILY Dolutegravir Sodium [Tivicay] 50 mg PO DAILY Levothyroxine Sodium [Synthroid] 25 mcg PO DAILY Emtricitabine/Tenofov Alafenam [Descovy 200-25 mg Tablet] 1 tab PO DAILY traZODone HCL 150 mg PO HS buPROPion HCL [Wellbutrin XL] 300 mg PO DAILY Mupirocin 2% Oint [Bactroban 2% Oint] 1 applic TOPICAL DAILY Umeclidinium [place] [Incruse Ellipta] 1 puff INHALATION RT-DAILY Citalopram Hydrobromide [CeleXA] 40 mg PO DAILY Intelence 200mg 200 mg PO BID Diltiazem HCl [Diltiazem HCl 24Hr ER] 360 mg PO DAILY Ipratropium [place] 0.06%Nasal [Atrovent Nasal 0.06%] 1 spray EA NOSTRIL Q4H Pantoprazole Sodium [Protonix] 40 mg PO DAILY HYDROcodone/APAP 10-325MG [[place] 10-325] 1 tab PO QID PRN PRN Reason: Pain Gabapentin 800 mg PO TID Cetirizine HCl [Zyrtec] 10 mg PO DAILY Baclofen [Lioresal] 20 mg PO TID Triamterene/Hydrochlorothiazid [Triamterene-Hctz 37.5-25 mg Tb] 1 tab PO DAILY Albuterol Inhaler [Ventolin Hfa Inhaler] 2 puff INHALATION RT-QID PRN PRN Reason: Shortness Of Breath Cephalexin [Keflex] 500 mg PO Q6H Discharge Medication List Quinapril HCl [Accupril] 10 mg PO DAILY 05/31/16 [History] Dolutegravir Sodium [Tivicay] 50 mg PO DAILY 09/01/18 [History] Emtricitabine/Tenofov Alafenam [Descovy 200-25 mg Tablet] 1 tab PO DAILY 09/01/18 [History] Levothyroxine Sodium [Synthroid] 25 mcg PO DAILY 09/01/18 [History] buPROPion HCL [Wellbutrin XL] 300 mg PO DAILY 09/01/18 [History] traZODone HCL 150 mg PO HS 09/01/18 [History] Citalopram Hydrobromide [CeleXA] 40 mg PO DAILY 03/31/19 [History] Diltiazem HCl [Diltiazem HCl 24Hr ER] 360 mg PO DAILY 03/31/19 [History] Intelence 200mg 200 mg PO BID 03/31/19 [History] Mupirocin 2% Oint [Bactroban 2% Oint] 1 applic TOPICAL DAILY 03/31/19 [History] Umeclidinium [place] [Incruse Ellipta] 1 puff INHALATION RT-DAILY 03/31/19 [History] Ipratropium [place] 0.06%Nasal [Atrovent Nasal 0.06%] 1 spray EA NOSTRIL Q4H 06/09/19 [History] Albuterol Inhaler [Ventolin Hfa Inhaler] 2 puff INHALATION RT-QID PRN 11/22/20 [History] Baclofen [Lioresal] 20 mg PO TID 11/22/20 [History] Cephalexin [Keflex] 500 mg PO Q6H 11/22/20 [History] Cetirizine HCl [Zyrtec] 10 mg PO DAILY 11/22/20 [History] Gabapentin 800 mg PO TID 11/22/20 [History] HYDROcodone/APAP 10-325MG [[place] 10-325] 1 tab PO QID PRN 11/22/20 [History] Pantoprazole Sodium [Protonix] 40 mg PO DAILY 11/22/20 [History] Triamterene/Hydrochlorothiazid [Triamterene-Hctz 37.5-25 mg Tb] 1 tab PO DAILY 11/22/20 [History] Nicotine 14Mg/24Hr Patch [Habitrol] 1 patch TRANSDERM DAILY patch 11/26/20 [Rx] guaiFENesin [Mucinex] 600 mg PO DAILY tablet.er 11/26/20 [Rx] polyethylene glycoL 3350 [Miralax] 17 gm PO DAILY powd.pack 11/26/20 [Rx] Patient Instructions/Handouts: Cellulitis (DC), HIV Infection (DC)
--- NOTE | 2020-11-26 15:37 | PN ---
PROGRESS NOTE DATE OF SERVICE: 11/26/2020. REASON FOR FOLLOWUP: Bilateral lower extremity cellulitis. INTERVAL HISTORY: The patient is afebrile. The patient is breathing comfortably, denies any chest pain or cough. No pain in the lower extremity. PHYSICAL EXAMINATION: Blood pressure 98/64, pulse of 79, temperature is 97.75, pulse 90 percent on room air. DESCRIPTION: Patient is a middle-aged male up in the chair in no distress. RESPIRATORY SYSTEM: Unlabored breathing, decreased BS, no wheeze. HEART: S1, S2. ABDOMEN: Regular abdomen. LEGS: Legs are currently no significant swelling, redness or drainage. LABS: Hemoglobin is 15.4, white count 9.2, BUN of 15, creatinine 1.2. DIAGNOSTIC IMPRESSION AND PLAN: 1. Patient with bilateral lower extremity cellulitis, right greater than left. Overall improvement with cefazolin, finish therapy with oral Keflex. 2. Patient HIV. Continue with Natalia Beckman. Will have going CD4 count and follow as an outpatient. Close outpatient followup. MMODL / IJN: [id number] /
== END 2020-11-26 15:03 | disposition home or self-care (01) | DRG 603 ==
LOC: 5NMEDONC 14:16
PROVIDERS: ADMIT Internal Medicine; ATTEND Internal Medicine
DX: L03.116 Cellulitis of left lower limb (principal); B20 Human immunodeficiency virus [HIV] disease; L03.115 Cellulitis of right lower limb; E03.9 Hypothyroidism, unspecified; E78.5 Hyperlipidemia, unspecified; J44.9 Chronic obstructive pulmonary disease, unspecified; F17.210 Nicotine dependence, cigarettes, uncomplicated; F32.9 Major depressive disorder, single episode, unspecified; F41.0 Panic disorder [episodic paroxysmal anxiety]; I10 Essential (primary) hypertension; Z20.822 Contact with and (suspected) exposure to COVID-19; Z79.890 Hormone replacement therapy; Z79.899 Other long term (current) drug therapy; Z88.1 Allergy status to other antibiotic agents; Z88.2 Allergy status to sulfonamides
CPT/HCPCS: 71045; 80053; 83036; 85025; 87040; 93005; 93970; 94640

== ENCOUNTER 2021-01-07 11:12 | Emergency (ER) | payer MEDICARE, OTHER ==
[2021-01-07 11:19] VITALS: BP 127/83; PULSE 95; RESP 20; TEMP 98
--- NOTE | 2021-01-07 12:04 | CT ---
EXAMINATION TYPE: CT brain wo con DATE OF EXAM: 01/07/2021 COMPARISON: None HISTORY: fall, hit head CT DLP: 1070.[address] of the brain was performed. The ventricles, basal cisterns and sulci overlying the cerebral convexities demonstrate mild enlargem ent. There is no evidence for intracranial hemorrhage or sulcal effacement. There is decreased attenuation about the periventricular white matter and deep white matter of both c erebral hemispheres, compatible with chronic small vessel ischemia. Differential diagnosis does inclu de demyelination. No mass effects are seen.No midline shift. Osseous calvarium is intact. Small occipital scalp hematoma. If symptoms persist consider MRI. IMPRESSION: 1. Age related atrophic and chronic small vessel ischemic change without acute intracranial process s een at this time.
--- NOTE | 2021-01-07 12:14 | ED ---
Fall HPI - General Chief Complaint: Fall Stated Complaint: Fall, head injury Time Seen by Provider: 01/07/21 11:20 Source: patient Mode of arrival: wheelchair Limitations: no limitations - History of Present Illness Initial Comments: This is a 52-year-old male presents emergency Department with chief complaint of a head injury. Patient states he was sitting on a bench states he fell over striking his forehead. Patient states he did not stop his fall with his hands. Patient states she felt dazed no loss conscious. Denies any neck pain no back pain. Patient states it is not taking any blood thinners including aspirin and Plavix. Patient offers no other complaints. - Related Data Home Medications Medication Instructions Recorded Confirmed Quinapril HCl [Accupril] 10 mg PO DAILY 05/31/16 11/22/20 Dolutegravir Sodium [Tivicay] 50 mg PO DAILY 09/01/18 11/22/20 Emtricitabine/Tenofov Alafenam 1 tab PO DAILY 09/01/18 11/22/20 [Descovy 200-25 mg Tablet] Levothyroxine Sodium [Synthroid] 25 mcg PO DAILY 09/01/18 11/22/20 buPROPion HCL [Wellbutrin XL] 300 mg PO DAILY 09/01/18 11/22/20 traZODone HCL 150 mg PO HS 09/01/18 11/22/20 Citalopram Hydrobromide [CeleXA] 40 mg PO DAILY 03/31/19 11/22/20 Diltiazem HCl [Diltiazem HCl 24Hr 360 mg PO DAILY 03/31/19 11/22/20 ER] Intelence 200mg 200 mg PO BID 03/31/19 11/22/20 Mupirocin 2% Oint [Bactroban 2% 1 applic TOPICAL DAILY 03/31/19 11/22/20 Oint] Umeclidinium [place] [Incruse 1 puff INHALATION RT-DAILY 03/31/19 11/22/20 Ellipta] Ipratropium [place] 0.06%Nasal 1 spray EA NOSTRIL Q4H 06/09/19 11/22/20 [Atrovent Nasal 0.06%] Albuterol Inhaler [Ventolin Hfa 2 puff INHALATION RT-QID PRN 11/22/20 11/22/20 Inhaler] Baclofen [Lioresal] 20 mg PO TID 11/22/20 11/22/20 Cephalexin [Keflex] 500 mg PO Q6H 11/22/20 11/22/20 Cetirizine HCl [Zyrtec] 10 mg PO DAILY 11/22/20 11/22/20 Gabapentin 800 mg PO TID 11/22/20 11/22/20 HYDROcodone/APAP 10-325MG [[place] 1 tab PO QID PRN 11/22/20 11/22/20 10-325] Pantoprazole Sodium [Protonix] 40 mg PO DAILY 11/22/20 11/22/20 Triamterene/Hydrochlorothiazid 1 tab PO DAILY 11/22/20 11/22/20 [Triamterene-Hctz 37.5-25 mg Tb] Previous Rx's Medication Instructions Recorded Nicotine 14Mg/24Hr Patch [Habitrol] 1 patch TRANSDERM DAILY patch 11/26/20 guaiFENesin [Mucinex] 600 mg PO DAILY tablet.er 11/26/20 polyethylene glycoL 3350 [Miralax] 17 gm PO DAILY powd.pack 11/26/20 Allergies Allergy/AdvReac Type Severity Reaction Status Date / Time azithromycin Allergy Rash/Hives Verified 11/22/20 18:13 [From Zithromax Z-Simone] Sulfa (Sulfonamide Allergy Rash/Hives Verified 11/22/20 18:13 Antibiotics) Review of Systems ROS Statement: Those systems with pertinent positive or pertinent negative responses have been documented in the HPI. ROS Other: All systems not noted in ROS Statement are negative. Past Medical History Past Medical History: COPD, GERD/Reflux, Hypertension, Osteoarthritis (OA) Additional Past Medical History / Comment(s): HIV/AIDS(1990) back pain, neuropathy,sleep apnea History of Any Multi-Drug Resistant Organisms: None Reported Additional Past Surgical History / Comment(s): neck surgery, throat surgery Past Anesthesia/Blood Transfusion Reactions: No Reported Reaction Past Psychological History: Bipolar, Depression, Panic Disorder Smoking Status: Current every day smoker Past Alcohol Use History: Occasional Past Drug Use History: None Reported - Past Family History Brother(s) Family Medical History: Diabetes Mellitus Father Family Medical History: Cancer Additional Family Medical History / Comment(s): Father of throat cancer. Mother Additional Family Medical History / Comment(s): Mother of a ruptured brain aneurysm. General Exam Limitations: physical limitation General appearance: alert, in no apparent distress Head exam: Present: atraumatic, normocephalic, normal inspection Eye exam: Present: normal appearance, PERRL, EOMI. Absent: scleral icterus, conjunctival injection, periorbital swelling ENT exam: Present: normal exam, mucous membranes moist Neck exam: Present: normal inspection, full ROM. Absent: tenderness, meningismus, lymphadenopathy Respiratory exam: Present: normal lung sounds bilaterally. Absent: respiratory distress, wheezes, rales, rhonchi, stridor Cardiovascular Exam: Present: regular rate, normal rhythm, normal heart sounds. Absent: systolic murmur, diastolic murmur, rubs, gallop, clicks Neurological exam: Present: alert, oriented X3, CN II-XII intact, reflexes normal. Absent: motor sensory deficit Course Vital Signs 01/07/21 11:17 Temperature 98 F Pulse Rate 95 Respiratory 20 Rate Blood Pressure 127/83 O2 Sat by Pulse 93 L Oximetry Medical Decision Making - Medical Decision Making CT is unremarkable. Patient has a contusion discharged in stable condition. Re turn parameters discussed. Disposition Clinical Impression: Fall, Contusion of head Disposition: HOME SELF-CARE Condition: Stable Instructions (If sedation given, give patient instructions): Head Injury (ED) Additional Instructions: Please return to the Emergency Department if symptoms worsen or any other concerns. Is patient prescribed a controlled substance at d/c from ED?: No Referrals: Daniela Rojo MD [Primary Care Provider] - 1-2 days Time of Disposition: 12:14
== END 2021-01-07 12:36 | disposition home or self-care (01) ==
LOC: EC 11:12
DX: S00.93XA Contusion of unspecified part of head, initial encounter (principal); J44.9 Chronic obstructive pulmonary disease, unspecified; I10 Essential (primary) hypertension; K21.9 Gastro-esophageal reflux disease without esophagitis; F17.200 Nicotine dependence, unspecified, uncomplicated; Z21 Asymptomatic human immunodeficiency virus [HIV] infection status; Z88.2 Allergy status to sulfonamides; Z88.1 Allergy status to other antibiotic agents; Z79.899 Other long term (current) drug therapy; W08.XXXA Fall from other furniture, initial encounter
CPT/HCPCS: 70450; 99283

== ENCOUNTER 2021-02-11 18:09 | Emergency (ER) | payer MEDICARE, OTHER ==
[2021-02-11 19:18] VITALS: BP 155/84; PULSE 85; RESP 18; TEMP 97.9
--- NOTE | 2021-02-11 20:36 | XR ---
EXAMINATION TYPE: XR Hip Bilateral and AP pelvis DATE OF EXAM: 02/11/2021 COMPARISON: NONE HISTORY: Pain status post fall. TECHNIQUE: A single AP view of the pelvis is obtained. Two views of the bilateral hip are obtained. FINDINGS: There is no acute fracture or dislocation of the bilateral hips. There is end-stage osteoar thritis of the right hip with superimposed osteonecrosis and moderate femoral head collapse. There is mild facet arthritis of the left hip. IMPRESSION: No acute fracture of the pelvis/hips. End-stage osteoarthritis of the right hip with superimposed osteonecrosis.
--- NOTE | 2021-02-11 20:38 | XR ---
RESULT: HISTORY: pain TECHNIQUE: 3 views of the lumbar spine were obtained. COMPARISON: None. FINDINGS: There is no acute fracture or subluxation. The vertebral body heights are grossly maintained. There i s moderate L3-S1 spondylosis. No significant spondylolisthesis. IMPRESSION: Degenerative changes without acute osseous abnormality.
--- NOTE | 2021-02-11 20:59 | ED ---
Extremity Problem HPI - General Chief complaint: Extremity Problem,Nontraumatic Stated complaint: R hip pain Source: patient, RN notes reviewed Mode of arrival: ambulatory Limitations: no limitations - History of Present Illness Initial comments: Patient is a 60-year-old male that presents to emergency department complaining of right hip pain. He notes that he did seen with dog trainer surgeon on Thursday and was told to his right hip his heart rhythmic and needs it replaced. He was told that he needs to lose weight and quit smoking in ordered to the surgery. He notes that he is under pain contract and cannot take any prescriptions out of the ER. He just wanted symptom medic control at this time. Patient was otherwise a well-appearing 60-year-old male. He denied any chest pain shortness breath headache nausea vomiting diarrhea comes patient fever fatigue chills. - Related Data Home Medications Medication Instructions Recorded Confirmed Quinapril HCl [Accupril] 10 mg PO DAILY 05/31/16 01/07/21 Dolutegravir Sodium [Tivicay] 50 mg PO DAILY 09/01/18 01/07/21 Emtricitabine/Tenofov Alafenam 1 tab PO DAILY 09/01/18 01/07/21 [Descovy 200-25 mg Tablet] Levothyroxine Sodium [Synthroid] 25 mcg PO DAILY 09/01/18 01/07/21 buPROPion HCL [Wellbutrin XL] 300 mg PO DAILY 09/01/18 01/07/21 traZODone HCL 150 mg PO HS 09/01/18 01/07/21 Citalopram Hydrobromide [CeleXA] 40 mg PO DAILY 03/31/19 01/07/21 Diltiazem HCl [Diltiazem HCl 24Hr 360 mg PO DAILY 03/31/19 01/07/21 ER] Intelence 200mg 200 mg PO BID 03/31/19 01/07/21 Mupirocin 2% Oint [Bactroban 2% 1 applic TOPICAL DAILY 03/31/19 01/07/21 Oint] Umeclidinium [place] [Incruse 1 puff INHALATION RT-DAILY 03/31/19 01/07/21 Ellipta] Ipratropium [place] 0.06%Nasal 1 spray EA NOSTRIL Q4H 06/09/19 01/07/21 [Atrovent Nasal 0.06%] Albuterol Inhaler [Ventolin Hfa 2 puff INHALATION RT-QID PRN 11/22/20 01/07/21 Inhaler] Baclofen [Lioresal] 20 mg PO TID 11/22/20 01/07/21 Cephalexin [Keflex] 500 mg PO Q6H 11/22/20 01/07/21 Cetirizine HCl [Zyrtec] 10 mg PO DAILY 11/22/20 01/07/21 Gabapentin 800 mg PO TID 11/22/20 01/07/21 HYDROcodone/APAP 10-325MG [Page 1 tab PO QID PRN 11/22/20 01/07/21 10-325] Pantoprazole Sodium [Protonix] 40 mg PO DAILY 11/22/20 01/07/21 Triamterene/Hydrochlorothiazid 1 tab PO DAILY 11/22/20 01/07/21 [Triamterene-Hctz 37.5-25 mg Tb] Previous Rx's Medication Instructions Recorded Nicotine 14Mg/24Hr Patch [Habitrol] 1 patch TRANSDERM DAILY patch 11/26/20 guaiFENesin [Mucinex] 600 mg PO DAILY tablet.er 11/26/20 polyethylene glycoL 3350 [Miralax] 17 gm PO DAILY powd.pack 11/26/20 Allergies Allergy/AdvReac Type Severity Reaction Status Date / Time azithromycin Allergy Rash/Hives Verified 01/07/21 12:24 [From Zithromax Z-Simone] Sulfa (Sulfonamide Allergy Rash/Hives Verified 01/07/21 12:24 Antibiotics) Review of Systems ROS Statement: Those systems with pertinent positive or pertinent negative responses have been documented in the HPI. ROS Other: All systems not noted in ROS Statement are negative. Past Medical History Past Medical History: COPD, GERD/Reflux, Hypertension, Osteoarthritis (OA) Additional Past Medical History / Comment(s): HIV/AIDS(1990) back pain, neuropathy,sleep apnea History of Any Multi-Drug Resistant Organisms: None Reported Additional Past Surgical History / Comment(s): neck surgery, throat surgery Past Anesthesia/Blood Transfusion Reactions: No Reported Reaction Past Psychological History: Bipolar, Depression, Panic Disorder Smoking Status: Current every day smoker Past Alcohol Use History: Occasional Past Drug Use History: None Reported - Past Family History Brother(s) Family Medical History: Diabetes Mellitus Father Family Medical History: Cancer Additional Family Medical History / Comment(s): Father of throat cancer. Mother Additional Family Medical History / Comment(s): Mother of a ruptured brain aneurysm. General Exam Limitations: no limitations, physical limitation (Patient uses a wheeled walker) General appearance: alert, in no apparent distress, obese Head exam: Present: atraumatic, normocephalic, normal inspection Eye exam: Present: normal appearance, PERRL, EOMI. Absent: scleral icterus, conjunctival injection, periorbital swelling Neck exam: Present: normal inspection Respiratory exam: Present: normal lung sounds bilaterally. Absent: respiratory distress, wheezes, rales, rhonchi, stridor Cardiovascular Exam: Present: regular rate, normal rhythm, normal heart sounds. Absent: systolic murmur, diastolic murmur, rubs, gallop, clicks Extremities exam: Present: normal inspection, full ROM, normal capillary refill. Absent: tenderness, pedal edema, joint swelling, calf tenderness Neurological exam: Present: alert, oriented X3 Psychiatric exam: Present: normal affect, normal mood Skin exam: Present: warm, dry, intact, normal color. Absent: rash Course Vital Signs 02/11/21 19:13 Temperature 97.9 F Pulse Rate 85 Respiratory 18 Rate Blood Pressure 155/84 O2 Sat by Pulse 96 Oximetry Medical Decision Making - Medical Decision Making 60-year-old male complaining of right hip and lower back pain. X-ray of the low back in bilateral hips and pelvis ordered. 1 mg of Dilaudid ordered for pain control. X-ray lumbar spine negative for any acute process. X-ray the right hip shows end-stage osteoarthritis with osteonecrosis. Patient does follow-up with orthopedic surgeon was informed he needs to quit smoking ordered to hip placement. Case discussed with Dr. Chow, patient can discharge home. - Radiology Data Radiology results: report reviewed, image reviewed X-ray lumbar spine: Degenerative changes without acute osseous abnormality. X-ray of bilateral hips and pelvis: No acute fracture of the pelvis hips. End-stage osteoarthritis the right hip with superimposed osteonecrosis. Disposition Clinical Impression: Right hip pain, Osteoarthritis of right hip, Osteonecrosis of right hip Disposition: HOME SELF-CARE Condition: Stable Instructions (If sedation given, give patient instructions): Osteoarthritis (ED) Additional Instructions: Please return to the Emergency Department if symptoms worsen or any other concerns. Follow-up with orthopedic surgeon as planned. Take at home pain medications as prescribed. Is patient prescribed a controlled substance at d/c from ED?: No Referrals: Daniela Rojo MD [Primary Care Provider] - 1-2 days Time of Disposition: 21:09
[2021-02-11] MEDS ORDERED: HYDROmorphone 1 MG/ML 1 ML SYRINGE IM STA (21:05)
== END 2021-02-11 21:28 | disposition home or self-care (01) ==
LOC: EC 18:09
DX: M16.11 Unilateral primary osteoarthritis, right hip (principal); M87.9 Osteonecrosis, unspecified; J44.9 Chronic obstructive pulmonary disease, unspecified; I10 Essential (primary) hypertension; K21.9 Gastro-esophageal reflux disease without esophagitis; F17.200 Nicotine dependence, unspecified, uncomplicated; Z88.1 Allergy status to other antibiotic agents; Z88.2 Allergy status to sulfonamides; Z21 Asymptomatic human immunodeficiency virus [HIV] infection status; Z79.899 Other long term (current) drug therapy; Z79.51 Long term (current) use of inhaled steroids
CPT/HCPCS: 72100; 73521; 99284; 96372; J1170

== ENCOUNTER 2021-05-10 12:31 | Emergency (ER) | payer MEDICARE, OTHER ==
--- NOTE | 2021-05-10 17:31 | ED ---
General Adult HPI - General Chief complaint: Extremity Problem,Nontraumatic Stated complaint: Pain in Lt arm Time Seen by Provider: 05/10/21 16:13 Source: patient Mode of arrival: ambulatory Limitations: no limitations - History of Present Illness Initial comments: 60-year-old male with a past medical history of COPD, GERD, hypertension presents to the emergency room for a chief complaint of left arm pain. Patient states yesterday he started to have left arm pain. Patient states that sometimes it is a sharp pain and sometimes it is a burning pain. States it seems to come from his shoulder. He states that it does feel tight when lifting his arm above his head. However patient is concerned it is his heart. States he has a family history of heart attacks. He does not have any chest pain or shortness of breath nausea or diaphoresis. However he would like to be checked for his heart.Patient has no other complaints at this time including shortness of breath, chest pain, abdominal pain, nausea or vomiting, headache, or visual changes. - Related Data Home Medications Medication Instructions Recorded Confirmed Quinapril HCl [Accupril] 10 mg PO DAILY 05/31/16 05/10/21 Dolutegravir Sodium [Tivicay] 50 mg PO DAILY 09/01/18 05/10/21 Emtricitabine/Tenofov Alafenam 1 tab PO DAILY 09/01/18 05/10/21 [Descovy 200-25 mg Tablet] Levothyroxine Sodium [Synthroid] 25 mcg PO DAILY 09/01/18 05/10/21 traZODone HCL 150 mg PO HS 09/01/18 05/10/21 Citalopram Hydrobromide [CeleXA] 40 mg PO DAILY 03/31/19 05/10/21 Diltiazem HCl [Diltiazem HCl 24Hr 360 mg PO DAILY 03/31/19 05/10/21 ER] Intelence 200mg 200 mg PO BID 03/31/19 05/10/21 Umeclidinium [place] [Incruse 1 puff INHALATION RT-DAILY 03/31/19 05/10/21 Ellipta] Ipratropium [place] 0.06%Nasal 1 spray EA NOSTRIL BID PRN 06/09/19 05/10/21 [Atrovent Nasal 0.06%] Albuterol Inhaler [Ventolin Hfa 2 puff INHALATION RT-QID PRN 11/22/20 05/10/21 Inhaler] Baclofen [Lioresal] 20 mg PO TID 11/22/20 05/10/21 Cephalexin [Keflex] 500 mg PO BID 11/22/20 05/10/21 Cetirizine HCl [Zyrtec] 10 mg PO DAILY 11/22/20 05/10/21 Gabapentin 800 mg PO TID 11/22/20 05/10/21 Triamterene/Hydrochlorothiazid 1 tab PO DAILY 11/22/20 05/10/21 [Triamterene-Hctz 37.5-25 mg Tb] Morphine Sulfate Ir [MSIR] 15 mg PO QID 05/10/21 05/10/21 Allergies Allergy/AdvReac Type Severity Reaction Status Date / Time azithromycin Allergy Rash/Hives Verified 05/10/21 18:23 [From Zithromax Z-Simone] Sulfa (Sulfonamide Allergy Rash/Hives Verified 05/10/21 18:23 Antibiotics) Review of Systems ROS Statement: Those systems with pertinent positive or pertinent negative responses have been documented in the HPI. ROS Other: All systems not noted in ROS Statement are negative. Past Medical History Past Medical History: COPD, GERD/Reflux, Hypertension, Osteoarthritis (OA) Additional Past Medical History / Comment(s): HIV/AIDS(1990) back pain, neuropathy,sleep apnea History of Any Multi-Drug Resistant Organisms: None Reported Additional Past Surgical History / Comment(s): neck surgery, throat surgery Past Anesthesia/Blood Transfusion Reactions: No Reported Reaction Past Psychological History: Bipolar, Depression, Panic Disorder Smoking Status: Current every day smoker Past Alcohol Use History: Occasional Past Drug Use History: None Reported - Past Family History Brother(s) Family Medical History: Diabetes Mellitus Father Family Medical History: Cancer Additional Family Medical History / Comment(s): Father of throat cancer. Mother Additional Family Medical History / Comment(s): Mother of a ruptured brain aneurysm. General Exam Limitations: no limitations General appearance: alert, in no apparent distress Head exam: Present: atraumatic Eye exam: Present: normal appearance, PERRL, EOMI. Absent: scleral icterus, conjunctival injection ENT exam: Present: normal exam, mucous membranes moist Neck exam: Present: normal inspection, full ROM. Absent: tenderness Respiratory exam: Present: normal lung sounds bilaterally. Absent: respiratory distress, wheezes Cardiovascular Exam: Present: regular rate, normal rhythm, normal heart sounds GI/Abdominal exam: Present: soft, normal bowel sounds. Absent: distended, tenderness Extremities exam: Present: full ROM (Full range of motion of the arm however patient does have some tightness with full abduction of the left arm.), normal capillary refill (Capillary refill less than 2 seconds left upper extremity. Ra dial pulse 2+.), other (Sensation intact left arm. Program Planner strength 5 out of 5.). Absent: tenderness, joint swelling Neurological exam: Present: alert Course Vital Signs 05/10/21 13:53 Temperature 98.1 F Pulse Rate 82 Respiratory 16 Rate Blood Pressure 116/76 O2 Sat by Pulse 95 Oximetry EKG Findings - EKG Comments: EKG Findings:: Normal sinus rhythm, ventricular rate 77, MO interval 204, QTC 420 Medical Decision Making - Medical Decision Making vitals are stable. Patient presents for left arm pain that does sound radicular in nature with shooting pain and burning pain extending down the arm from the shoulder. Neurovascular status intact. EKG nonischemic. Patient is concerned it could be his heart. He does not have any other associated symptoms such as chest pain, shortness of breath, nausea, diaphoresis. However we did do some blood work. CBC CMP unremarkable. Troponin is negative. His pain has been ongoing for over 24 hours we would expect this to be accurate. X-ray was obtained which did show some persistent streaky opacities in the lung bases that may represent pulmonary vascular congestion. Patient does not have any other symptoms of heart failure such as shortness of breath or peripheral edema. I reviewed his chest x-ray from previous and is unremarkable. Patient can be discharged to follow-up with primary care. - Lab Data Result diagrams: 05/10/21 18:32 05/10/21 18:32 Lab Results 05/10/21 05/10/21 05/10/21 Range/Units 18:32 18:32 18:32 WBC 12.2 H (3.8-10.6) k/uL RBC 5.54 (4.30-5.90) m/uL Hgb 17.0 (13.0-17.5) gm/dL Hct 51.0 (39.0-53.0) % MCV 92.0 (80.0-100.0) fL MCH 30.6 (25.0-35.0) pg MCHC 33.3 (31.0-37.0) g/dL RDW 15.1 (11.5-15.5) % Plt Count 218 (150-450) k/uL MPV 6.9 Neutrophils % 77 % Lymphocytes % 13 % Monocytes % 8 % Eosinophils % 1 % Basophils % 0 % Neutrophils # 9.4 H (1.3-7.7) k/uL Lymphocytes # 1.6 (1.0-4.8) k/uL Monocytes # 0.9 (0-1.0) k/uL Eosinophils # 0.1 (0-0.7) k/uL Basophils # 0.0 (0-0.2) k/uL PT 10.4 (9.0-12.0) sec INR 1.0 (<1.2) APTT 24.4 (22.0-30.0) sec Sodium 133 L (137-145) mmol/L Potassium 4.5 (3.5-5.1) mmol/L Chloride 97 L (98-107) mmol/L Carbon Dioxide 27 (22-30) mmol/L Anion Gap 9 mmol/L BUN 18 (9-20) mg/dL Creatinine 0.97 (0.66-1.25) mg/dL Est GFR (CKD-EPI)AfAm >90 (>60 ml/min/1.73 sqM) Est GFR (CKD-EPI)NonAf 86 (>60 ml/min/1.73 sqM) Glucose 100 H (74-99) mg/dL Calcium 9.6 (8.4-10.2) mg/dL Magnesium 2.0 (1.6-2.3) mg/dL Total Bilirubin 0.3 (0.2-1.3) mg/dL AST 32 (17-59) U/L ALT 34 (4-49) U/L Alkaline Phosphatase 68 (38-126) U/L Troponin I (0.000-0.034) ng/mL Total Protein 6.9 (6.3-8.2) g/dL Albumin 4.2 (3.5-5.0) g/dL 05/10/ Range/Units 18:32 WBC (3.8-10.6) k/uL RBC (4.30-5.90) m/uL Hgb (13.0-17.5) gm/dL Hct (39.0-53.0) % MCV (80.0-100.0) fL MCH (25.0-35.0) pg MCHC (31.0-37.0) g/dL RDW (11.5-15.5) % Plt Count (150-450) k/uL MPV Neutrophils % % Lymphocytes % % Monocytes % % Eosinophils % % Basophils % % Neutrophils # (1.3-7.7) k/uL Lymphocytes # (1.0-4.8) k/uL Monocytes # (0-1.0) k/uL Eosinophils # (0-0.7) k/uL Basophils # (0-0.2) k/uL PT (9.0-12.0) sec INR (<1.2) APTT (22.0-30.0) sec Sodium (137-145) mmol/L Potassium (3.5-5.1) mmol/L Chloride (98-107) mmol/L Carbon Dioxide (22-30) mmol/L Anion Gap mmol/L BUN (9-20) mg/dL Creatinine (0.66-1.25) mg/dL Est GFR (CKD-EPI)AfAm (>60 ml/min/1.73 sqM) Est GFR (CKD-EPI)NonAf (>60 ml/min/1.73 sqM) Glucose (74-99) mg/dL Calcium (8.4-10.2) mg/dL Magnesium (1.6-2.3) mg/dL Total Bilirubin (0.2-1.3) mg/dL AST (17-59) U/L ALT (4-49) U/L Alkaline Phosphatase (38-126) U/L Troponin I <0.012 (0.000-0.034) ng/mL Total Protein (6.3-8.2) g/dL Albumin (3.5-5.0) g/dL Disposition Clinical Impression: Arm pain, left Disposition: HOME SELF-CARE Condition: Good Instructions (If sedation given, give patient instructions): Arm Pain (ED) Additional Instructions: Please follow-up with your doctor in one to 2 days. Return to the emergency room for any worsening symptoms. Is patient prescribed a controlled substance at d/c from ED?: No Referrals: Daniela Rojo MD [Primary Care Provider] - 1-2 days Time of Disposition: 19:22
--- NOTE | 2021-05-10 18:24 | XR ---
EXAMINATION TYPE: XR chest 2V DATE OF EXAM: 05/10/2021 5:30 PM COMPARISON:Chest radiographs from 11/23/2020 CLINICAL INDICATION:Male, 60 years old with history of Chest Pain; TECHNIQUE: Frontal and lateral views of the chest. FINDINGS: Lungs/Pleura: Basilar streaky atelectasis changes are noted. There is no evidence of pleural effusion , focal consolidation, or pneumothorax. Pulmonary vascularity: Pulmonary vascular congestion. Heart/mediastinum: Cardiomediastinal silhouette is prominent in size. Visualized fixation hardware i n the lower cervical spine. Musculoskeletal: No acute osseous pathology. IMPRESSION: Persistent streaky easy opacities in the lung bases a represent pulmonary vascular congestion from co ngestive heart failure correlate with some BNP.
[2021-05-10 18:49] LABS: ALT 34 U/L (4-49); AST 32 U/L (17-59); African American GFR (CKD) >90 (>60 ml/min/1.73 sqM); Albumin 4.2 g/dL (3.5-5.0); Alkaline Phosphatase 68 U/L (38-126); Anion Gap 9 mmol/L; Blood Urea Nitrogen 18 mg/dL (9-20); Calcium 9.6 mg/dL (8.4-10.2); Carbon Dioxide 27 mmol/L (22-30); Chloride 97 mmol/L (98-107); Glucose 100 mg/dL (74-99); Non-African American GFR(CKD) 86 (>60 ml/min/1.73 sqM); Potassium 4.5 mmol/L (3.5-5.1); Sodium 133 mmol/L (137-145); Total Bilirubin 0.3 mg/dL (0.2-1.3); Total Protein 6.9 g/dL (6.3-8.2)
[2021-05-10 18:50] LABS: Partial Thromboplastin Time 24.4 sec (22.0-30.0); Prothrombin Time 10.4 sec (9.0-12.0)
[2021-05-10 18:54] LABS: Basophils % (A) 0 %; Eosinophils # (A) 0.1 k/uL (0-0.7); Eosinophils % (A) 1 %; Lymphocytes # (A) 1.6 k/uL (1.0-4.8); Lymphocytes % (A) 13 %; MCH 30.6 pg (25.0-35.0); MCHC 33.3 g/dL (31.0-37.0); Mean Platelet Volume 6.9; Monocytes # (A) 0.9 k/uL (0-1.0); Monocytes % (A) 8 %; Neutrophils # (A) 9.4 k/uL (1.3-7.7); Neutrophils % (A) 77 %; Platelet Count 218 k/uL (150-450); RBC 5.54 m/uL (4.30-5.90); RDW 15.1 % (11.5-15.5); WBC 12.2 k/uL (3.8-10.6)
[2021-05-10 19:35] VITALS: BP 117/80; PULSE 80; RESP 18; TEMP 98.2
== END 2021-05-10 19:35 | disposition home or self-care (01) ==
LOC: EC 12:31
DX: M79.602 Pain in left arm (principal); F17.200 Nicotine dependence, unspecified, uncomplicated; J44.9 Chronic obstructive pulmonary disease, unspecified; I10 Essential (primary) hypertension; B20 Human immunodeficiency virus [HIV] disease; K21.9 Gastro-esophageal reflux disease without esophagitis; M19.90 Unspecified osteoarthritis, unspecified site; Z88.1 Allergy status to other antibiotic agents; Z88.2 Allergy status to sulfonamides; Z79.899 Other long term (current) drug therapy; Z79.51 Long term (current) use of inhaled steroids
CPT/HCPCS: 36415; 71046; 80053; 83735; 84484; 85025; 85610; 85730; 93005; 99284

== ENCOUNTER 2021-10-23 19:05 | Inpatient (IN) | payer MEDICARE, OTHER ==
[2021-10-23 19:43] LABS: Basophils # (A) 0.1 k/uL (0-0.2); Basophils % (A) 0 %; Eosinophils # (A) 0.5 k/uL (0-0.7); Eosinophils % (A) 4 %; HCT 52.4 % (39.0-53.0); HGB 16.5 gm/dL (13.0-17.5); Lymphocytes # (A) 2.2 k/uL (1.0-4.8); Lymphocytes % (A) 17 %; MCH 28.1 pg (25.0-35.0); MCHC 31.4 g/dL (31.0-37.0); MCV 89.4 fL (80.0-100.0); Mean Platelet Volume 6.7; Monocytes # (A) 0.9 k/uL (0-1.0); Monocytes % (A) 7 %; Neutrophils # (A) 9.4 k/uL (1.3-7.7); Neutrophils % (A) 71 %; Platelet Count 258 k/uL (150-450); RBC 5.86 m/uL (4.30-5.90); WBC 13.3 k/uL (3.8-10.6)
[2021-10-23 19:50] LABS: Partial Thromboplastin Time 26.5 sec (22.0-30.0); Prothrombin Time 10.5 sec (9.0-12.0)
[2021-10-23 19:54] LABS: ALT 27 U/L (4-49); AST 34 U/L (17-59); African American GFR (CKD) >90 (>60 ml/min/1.73 sqM); Albumin 4.4 g/dL (3.5-5.0); Alkaline Phosphatase 64 U/L (38-126); Anion Gap 7 mmol/L; Blood Urea Nitrogen 17 mg/dL (9-20); Calcium 9.8 mg/dL (8.4-10.2); Carbon Dioxide 28 mmol/L (22-30); Chloride 96 mmol/L (98-107); Glucose 101 mg/dL (74-99); Magnesium 1.8 mg/dL (1.6-2.3); Non-African American GFR(CKD) 85 (>60 ml/min/1.73 sqM); Potassium 4.2 mmol/L (3.5-5.1); Sodium 131 mmol/L (137-145); Total Bilirubin 0.3 mg/dL (0.2-1.3); Total Protein 7.2 g/dL (6.3-8.2)
--- NOTE | 2021-10-23 22:17 | ED ---
Chest Pain HPI - General Chief Complaint: Chest Pain Stated Complaint: Chest pain Time Seen by Provider: 10/23/21 20:12 Source: patient, RN notes reviewed Mode of arrival: wheelchair Limitations: no limitations - History of Present Illness Initial Comments: (-year-old male presents with complaints of retrosternal chest pain earlier today. It did last for a period of time. He states it was pressure-like in lasted somewhere between 5 and 6 PM tonight. It somewhat different than previous presentations he does state he did have a stress test recently which apparently was unremarkable. He is a smoker however he also has a strong family history of cardiac disease he currently is pain-free denies any other complaints at this time MD Complaint: chest pain - Related Data Home Medications Medication Instructions Recorded Confirmed Quinapril HCl [Accupril] 10 mg PO DAILY 05/31/16 10/23/21 Emtricitabine/Tenofov Alafenam 1 tab PO HS 09/01/18 10/23/21 [Descovy 200-25 mg Tablet] Levothyroxine Sodium [Synthroid] 25 mcg PO DAILY 09/01/18 10/23/21 traZODone HCL 150 mg PO HS 09/01/18 10/23/21 Citalopram Hydrobromide [CeleXA] 40 mg PO DAILY 03/31/19 10/23/21 Diltiazem HCl [Diltiazem HCl 24Hr 360 mg PO DAILY 03/31/19 10/23/21 ER] Intelence 200mg 200 mg PO BID 03/31/19 10/23/21 Baclofen [Lioresal] 20 mg PO QID 11/22/20 10/23/21 Cetirizine HCl [Zyrtec] 10 mg PO DAILY 11/22/20 10/23/21 Gabapentin 800 mg PO TID 11/22/20 10/23/21 Triamterene/Hydrochlorothiazid 1 tab PO DAILY 11/22/20 10/23/21 [Triamterene-Hctz 37.5-25 mg Tb] Morphine Sulfate Ir [MSIR] 15 mg PO QID 05/10/21 10/23/21 Dolutegravir Sodium [Tivicay] 50 mg PO HS 08/14/21 10/23/21 Ipratropium [place] 0.06%Nasal 2 spray EA NOSTRIL BID 08/14/21 10/23/21 [Atrovent Nasal 0.06%] Mupirocin 2% Oint [Bactroban 2% 1 applic TOPICAL BID PRN 08/14/21 10/23/21 Oint] Cephalexin [Keflex] 500 mg PO Q6H 10/23/21 10/23/21 Docusate Sodium [Dok] 100 mg PO DAILY 10/23/21 10/23/21 Phentermine HCl [Adipex-P] 37.5 mg PO DAILY 10/23/21 10/23/21 buPROPion XL [Wellbutrin XL] 300 mg PO DAILY 10/23/21 10/23/21 Allergies Allergy/AdvReac Type Severity Reaction Status Date / Time azithromycin Allergy Rash/Hives Verified 10/23/21 19:15 [From Zithromax Z-Simone] Sulfa (Sulfonamide Allergy Rash/Hives Verified 10/23/21 19:15 Antibiotics) Review of Systems ROS Statement: Those systems with pertinent positive or pertinent negative responses have been documented in the HPI. ROS Other: All systems not noted in ROS Statement are negative. EKG Findings - EKG Results: EKG: interpreted by ERMD, sinus rhythm (Sinus rhythm first-degree AV block rate 89. Interval to 12 QRS duration 92 QT since QTC 341/387 and complete right bundle-branch block pattern) Past Medical History Past Medical History: COPD, GERD/Reflux, Hypertension, Osteoarthritis (OA) Additional Past Medical History / Comment(s): HIV/AIDS(1990) back pain, neuropathy,sleep apnea History of Any Multi-Drug Resistant Organisms: None Reported Additional Past Surgical History / Comment(s): neck surgery, throat surgery Past Anesthesia/Blood Transfusion Reactions: No Reported Reaction Past Psychological History: Bipolar, Depression, Panic Disorder Smoking Status: Current every day smoker Past Alcohol Use History: Occasional Past Drug Use History: None Reported - Past Family History Brother(s) Family Medical History: Diabetes Mellitus Father Family Medical History: Cancer Additional Family Medical History / Comment(s): Father of throat cancer. Mother Additional Family Medical History / Comment(s): Mother of a ruptured brain aneurysm. General Exam - General Exam Comments Initial Comments: Well-developed well-nourished awake alert oriented 6 male Limitations: no limitations General appearance: alert, in no apparent distress Head exam: Present: atraumatic, normocephalic, normal inspection Eye exam: Present: normal appearance, PERRL, EOMI. Absent: scleral icterus, conjunctival injection, periorbital swelling ENT exam: Present: normal exam, mucous membranes moist Neck exam: Present: normal inspection, full ROM, other ([place]its). Absent: tenderness, meningismus, lymphadenopathy Respiratory exam: Present: normal lung sounds bilaterally. Absent: respiratory distress, wheezes, rales, rhonchi, stridor Cardiovascular Exam: Present: regular rate, normal rhythm, normal heart sounds. Absent: systolic murmur, diastolic murmur, rubs, gallop, clicks GI/Abdominal exam: Present: soft, normal bowel sounds. Absent: distended, tenderness, guarding, rebound, rigid Extremities exam: Present: normal inspection, full ROM, normal capillary refill. Absent: tenderness, pedal edema, joint swelling, calf tenderness Back exam: Present: normal inspection Neurological exam: Present: alert, oriented X3, CN II-XII intact Psychiatric exam: Present: normal affect, normal mood Skin exam: Present: warm, dry, intact, normal color. Absent: rash Course Vital Signs 10/23/21 10/23/21 19:10 20:36 Temperature 98 F 97.9 F Pulse Rate 94 90 Respiratory 20 20 Rate Blood Pressure 143/91 144/105 O2 Sat by Pulse 94 L 93 L Oximetry Chest Pain MDM - MDM Imaging reviewed no definitive acute findings. I did discuss findings the p atient and with Dr. Rojo. Patient will be admitted with cardiology consultation. Disposition Clinical Impression: Unstable angina pectoris, Chest pain, Smoker Disposition: ADMITTED IP TO THIS [facility] Condition: Fair Referrals: Daniela Rojo MD [Primary Care Provider] - 1-2 days Decision Date: 10/23/21 Decision Time: 22:00
[2021-10-23] MEDS ORDERED: NITROGLYCERIN SL TABS 0.4 MG TAB SUBLINGUAL PRN (22:20)
[2021-10-23] MEDS ORDERED: HEPARIN SODIUM 1,000 UN/ML (10ML VL) IV ONE (22:20)
--- NOTE | 2021-10-23 22:31 | XR ---
EXAMINATION TYPE: XR chest 2V DATE OF EXAM: 10/23/2021 9:27 PM COMPARISON: Multiple radiographs, with the most recent on 08/14/2021. TECHNIQUE: XR chest 2V Frontal and lateral views of the chest. CLINICAL INDICATION:Male, 61 years old with history of Chest Pain; FINDINGS: Lungs/Pleura: Bibasilar atelectasis not significantly changed from prior.. No evidence for pneumothor ax pleural effusion or focal consolidation. Pulmonary vascularity: Unremarkable. Heart/mediastinum: Cardiomediastinal silhouette is enlarged and stable. Musculoskeletal: No acute osseous pathology. There is fixation hardware in the lower cervical spine. IMPRESSION: No change from priors most recent 08/14/2021.
[2021-10-23] MEDS: HEPARIN SOD,PORK IN 0.45% NACL 25,000 UNIT in 0.45% NACL 1 250ML.BAG IV SCH (23:06)
[2021-10-23] MEDS: SODIUM CHLORIDE 0.9% 1,000 ML IV SCH (23:14)
[2021-10-23] MEDS ORDERED: MORPHINE SULFATE 4 MG/ML SYRINGE IVP STA (23:21)
[2021-10-24] MEDS: NITROGLYCERIN OINT 1 INCH/GM PACKET TOPICAL SCH ×2 (00:12→05:36)
[2021-10-24] MEDS: traZODone HCL 50 MG TAB PO SCH ×2 (00:37→21:05)
[2021-10-24] MEDS: LEVOTHYROXINE 25 MCG TAB PO SCH (05:36)
[2021-10-24] MEDS: DOCUSATE 100 MG CAP PO SCH (07:36)
[2021-10-24] MEDS: TRIAMTERENE-HCTZ 37.5-25MG 1 EACH TAB PO SCH (07:37)
[2021-10-24] MEDS: LORATADINE 10 MG TAB PO SCH (07:37)
[2021-10-24] MEDS: GABAPENTIN 400 MG CAP PO SCH ×3 (07:37→21:06)
[2021-10-24] MEDS: CITALOPRAM HYDROBROMIDE 20 MG TAB PO SCH (07:37)
[2021-10-24] MEDS: buPROPion XL 300 MG TAB.ER.24H PO SCH (07:38)
[2021-10-24] MEDS: lisinopriL 10 MG TAB PO SCH (07:38)
[2021-10-24] MEDS: BACLOFEN 10 MG TAB PO SCH ×4 (07:38→21:06)
[2021-10-24] MEDS: MORPHINE SULFATE IR 15 MG TABLET PO SCH ×4 (07:40→21:06)
[2021-10-24] MEDS: NON FORMULARY DRUG (Phentermine Hcl [Adipex-P] 37.5 MG Tablet) PO SCH (07:44)
[2021-10-24] MEDS ORDERED: HEPARIN SODIUM 1,000 UN/ML (10ML VL) IVP STA (07:50)
[2021-10-24] MEDS: DILTIAZEM CD 180 MG CAP.ER.24H PO SCH (08:12)
[2021-10-24] MEDS ORDERED: ASPIRIN 325 MG TAB PO STA (08:18)
[2021-10-24] MEDS ORDERED: NITROGLYCERIN SL TABS 0.4 MG TAB SUBLINGUAL PRN (08:18)
[2021-10-24] MEDS ORDERED: ATORVASTATIN 80 MG TAB PO STA (08:18)
[2021-10-24] MEDS: IPRATROPIUM BROMIDE 0.06% NASAL SPRAY (15 ML) EA NOSTRIL SCH ×2 (08:59→21:19)
[2021-10-24] MEDS ORDERED: INTELENCE 200 MG PO SCH (09:00)
[2021-10-24] MEDS ORDERED: ASPIRIN 325 MG TAB PO SCH (09:00)
[2021-10-24] MEDS ORDERED: VERAPAMIL 2.5 MG/ML 2 ML AMP ONE (09:04)
[2021-10-24 09:10] LABS: Chol/HDL Ratio 3.08 Ratio; LDL Cholesterol,Calculated 67.5 mg/dL (0.0-131.0)
[2021-10-24] MEDS ORDERED: IV FLUID CONTINUATION 1,000 ML IV ONE (09:15)
[2021-10-24] MEDS ORDERED: fentaNYL (PF) 50 MCG/ML 2 ML AMP ONE (09:16)
[2021-10-24] MEDS ORDERED: fentaNYL (PF) 50 MCG/ML 2 ML AMP IV ONE (09:31)
[2021-10-24] MEDS ORDERED: MIDAZOLAM 2 MG/2 ML VIAL IV ONE (09:32)
[2021-10-24] MEDS ORDERED: LIDOCAINE 1% PF 10 MG/ML (5 ML AMP) SQ ONE (09:32)
[2021-10-24] MEDS ORDERED: VERAPAMIL SYRINGE (5 MG/10 ML) INTRAARTER ONE (09:33)
[2021-10-24] MEDS ORDERED: IOPAMIDOL-370 125ML BTL INJ ONE (09:43)
--- NOTE | 2021-10-24 09:58 | P.CRDCN ---
History of Present Illness History of present illness: HISTORY OF PRESENT ILLNESS: This is a 61-year-old male with a past medical history significant for hypertension, HIV, anxiety, depression, and hypothyroidism. Patient follows in the office with Dr. Pineda. We have been asked to see the patient in consultation for chest pain. Patient examined at the bedside. Patient states yesterday he was sitting down eating when he began having a burning sensation in his chest. He states the pain radiated into his left arm. He reports it felt like a heavy pressure on his chest which she states is improved this morning. He denied having any shortness of breath. He reports feeling diaphoretic. He denies any nausea or vomiting. The patient does report worsening pain with chest wall palpation. He has a current smoker and smokes 1 pack per day. The patient reports a family history of coronary artery disease and states his dad had a heart attack in his 50s. He also reports his brother has suffered a heart attack. * EKG reveals sinus mechanism with no signs of acute ischemia * Chest xray bibasilar atelectasis not significant changed from prior. No evidence of pneumothorax, pleural effusion, or focal consolidation. * Laboratory data: WBC 13.3. Hemoglobin 16.5. Platelet count 258. Sodium 131. Potassium 4.2. BUN 17. Creatinine 0.98. Magnesium 1.9. Troponin negative 3. * Current home cardiac medications include Trimterene-hctz 37.5-25mg daily, quinapril 10 mg daily, Cardizem 360 mg daily * Most recent echocardiogram obtained in July 2021 revealed ejection fraction 50-55% with moderate LVH * Patient underwent dobutamine stress test and July 2021 which was negative for ischemia REVIEW OF SYSTEMS: At the time of my exam: CONSTITUTIONAL: Denies fever or chills. HEENT: Denies blurred vision, vision changes, or eye pain. Denies hemoptysis CARDIOVASCULAR: Denies chest pain. Denies orthopnea. Denies PND. Denies palpitations RESPIRATORY: Denies shortness of breath. GASTROINTESTINAL: Denies abdominal pain. Denies nausea or vomiting. HEMATOLOGIC: Denies bleeding disorders. GENITOURINARY: Denies any blood in urine. SKIN: Denies pruitis. Denies rash. PHYSICAL EXAM: VITAL SIGNS: Reviewed. GENERAL: Well-developed in no acute distress. HEENT: Head is normocephalic. Pupils are equal, round. Sclerae anicteric. Mucous membranes of the mouth are moist. Neck supple. No JVD or thyromegaly LUNGS: Respirations even and unlabored. Lungs essentially clear to auscultation bilaterally. HEART: Regular rate and rhythm. S1 and S2 heard. ABDOMEN: Soft. Nondistended. Nontender. EXTREMITIES: Normal range of motion. No clubbing or cyanosis. Peripheral pulses intact. 1+ bilateral lower extremity edema NEUROLOGIC: Awake and alert. Oriented x 3. ASSESSMENT: Chest pain Hypertension HIV Anxiety Depression Nicotine dependence Family history of premature coronary artery disease PLAN: Obtain 2D echo to assess cardiac structure and function Continue IV heparin Resume home cardiac medications Patient to undergo cardiac cath today with Dr. Solomon Further recommendations pending patient course Nurse practitioner note has been reviewed by physician. Signing provider agrees with the documented findings, assessment, and plan of care. Past Medical History Past Medical History: COPD, GERD/Reflux, Hypertension, Osteoarthritis (OA) Additional Past Medical History / Comment(s): HIV/AIDS(1990) back pain, ne uropathy,sleep apnea History of Any Multi-Drug Resistant Organisms: None Reported Additional Past Surgical History / Comment(s): neck surgery, throat surgery Past Anesthesia/Blood Transfusion Reactions: No Reported Reaction Past Psychological History: Bipolar, Depression, Panic Disorder Additional Psychological History / Comment(s): Pt resides alone in an apartment. He uses a walker to ambulate. He is disabled. He drives. Smoking Status: Current every day smoker Past Alcohol Use History: Occasional Additional Past Alcohol Use History / Comment(s): Pt started smoking in 1976 and is about a ppd smoker. He occasionally drinks alcohol-black Sojeansy. Past Drug Use History: None Reported - Past Family History Brother(s) Family Medical History: Diabetes Mellitus Father Family Medical History: Cancer Additional Family Medical History / Comment(s): Father of throat cancer. Mother Additional Family Medical History / Comment(s): Mother of a ruptured brain aneurysm. Medications and Allergies Home Medications Medication Instructions Recorded Confirmed Type Quinapril HCl [Accupril] 10 mg PO DAILY 05/31/16 10/23/21 History Emtricitabine/Tenofov Alafenam 1 tab PO HS 09/01/18 10/23/21 History [Descovy 200-25 mg Tablet] Levothyroxine Sodium [Synthroid] 25 mcg PO DAILY 09/01/18 10/23/21 History traZODone HCL 150 mg PO HS 09/01/18 10/23/21 History Citalopram Hydrobromide [CeleXA] 40 mg PO DAILY 03/31/19 10/23/21 History Diltiazem HCl [Diltiazem HCl 24Hr 360 mg PO DAILY 03/31/19 10/23/21 History ER] Intelence 200mg 200 mg PO BID 03/31/19 10/23/21 History Baclofen [Lioresal] 20 mg PO QID 11/22/20 10/23/21 History Cetirizine HCl [Zyrtec] 10 mg PO DAILY 11/22/20 10/23/21 History Gabapentin 800 mg PO TID 11/22/20 10/23/21 History Triamterene/Hydrochlorothiazid 1 tab PO DAILY 11/22/20 10/23/21 History [Triamterene-Hctz 37.5-25 mg Tb] Morphine Sulfate Ir [MSIR] 15 mg PO QID 05/10/21 10/23/21 History Dolutegravir Sodium [Tivicay] 50 mg PO HS 08/14/21 10/23/21 History Ipratropium [place] 0.06%Nasal 2 spray EA NOSTRIL BID 08/14/21 10/23/21 History [Atrovent Nasal 0.06%] Mupirocin 2% Oint [Bactroban 2% 1 applic TOPICAL BID PRN 08/14/21 10/23/21 History Oint] Cephalexin [Keflex] 500 mg PO Q6H 10/23/21 10/23/21 History Docusate Sodium [Dok] 100 mg PO DAILY 10/23/21 10/23/21 History Phentermine HCl [Adipex-P] 37.5 mg PO DAILY 10/23/21 10/23/21 History buPROPion XL [Wellbutrin XL] 300 mg PO DAILY 10/23/21 10/23/21 History Allergies Allergy/AdvReac Type Severity Reaction Status Date / Time azithromycin Allergy Rash/Hives Verified 10/23/21 19:15 [From Zithromax Z-Simone] Sulfa (Sulfonamide Allergy Rash/Hives Verified 10/23/21 19:15 Antibiotics) Physical Exam Vitals: Vital Signs Temp Pulse Pulse Resp BP BP Pulse Ox 10/24/21 07:32 97.6 F 90 18 118/74 94 L 10/24/21 00:06 97.6 F 87 21 148/92 93 L 10/23/21 23:02 75 14 114/81 90 L 10/23/21 20:36 97.9 F 90 20 144/105 93 L 10/23/21 19:10 98 F 94 20 143/91 94 L Intake and Output 10/23/21 10/24/21 10/24/21 22:59 06:59 14:59 Intake Total 203.898 Balance 203.898 Intake: IV 100 Intake, IV Titration 103.898 Amount Heparin Sod,Pork in 0.45% 103.898 NaCl 25,000 unit In 0.45 % NaCl 1 250ml.bag @ 8. 8185 UNITS/KG/HR 10 mls/ hr IV .Q24H [facility] Rx#: [id number] Other: Voiding Method Toilet # Voids 2 Weight 113.398 kg Results 10/23/21 19:18 10/23/21 19:18 Cardiac Enzymes 10/23/21 10/23/21 10/23/21 Range/Units 19:18 19:18 23:11 AST 34 (17-59) U/L Troponin I 0.016 0.024 (0.000-0.034) ng/mL 10/24/21 Range/Units 01:25 AST (17-59) U/L Troponin I 0.015 (0.000-0.034) ng/mL Coagulation 10/23/21 10/24/21 Range/Units 19:18 06:18 PT 10.5 (9.0-12.0) sec APTT 26.5 28.8 (22.0-30.0) sec Lipids 10/24/21 Range/Units 06:18 Triglycerides 135.00 (0.00-149.00) mg/dL Cholesterol 140.00 (0.00-200.00) mg/dL HDL Cholesterol 45.50 (40.00-60.00) mg/dL Cholesterol/HDL Ratio 3.08 Ratio CBC 10/23/21 Range/Units 19:18 WBC 13.3 H (3.8-10.6) k/uL RBC 5.86 (4.30-5.90) m/uL Hgb 16.5 (13.0-17.5) gm/dL Hct 52.4 (39.0-53.0) % Plt Count 258 (150-450) k/uL Comprehensive Metabolic Panel 10/23/21 Range/Units 19:18 Sodium 131 L (137-145) mmol/L Potassium 4.2 (3.5-5.1) mmol/L Chloride 96 L (98-107) mmol/L Carbon Dioxide 28 (22-30) mmol/L BUN 17 (9-20) mg/dL Creatinine 0.98 (0.66-1.25) mg/dL Glucose 101 H (74-99) mg/dL Calcium 9.8 (8.4-10.2) mg/dL AST 34 (17-59) U/L ALT 27 (4-49) U/L Alkaline Phosphatase 64 (38-126) U/L Total Protein 7.2 (6.3-8.2) g/dL Albumin 4.4 (3.5-5.0) g/dL Current Medications Generic Name Dose Route Start Last Admin Trade Name Freq PRN Reason Stop Dose Admin Alprazolam 0.25 mg 10/24/21 08:18 Alprazolam 0.25 Mg Tab PO Q6HR PRN Mild Anxiety Alprazolam 0.5 mg 10/24/21 08:18 Alprazolam 0.5 Mg Tab PO Q6HR PRN Moderate Anxiety Aspirin 81 mg 10/25/21 09:00 Aspirin 81 Mg PO DAILY MICHELLE Baclofen 20 mg 10/24/21 09:00 10/24/21 07:38 Baclofen 10 Mg Tab PO 20 mg QID MICHELLE Administration Bupropion HCl 300 mg 10/24/21 09:00 10/24/21 07:38 Bupropion Xl 300 Mg Tab.Er.24h PO 300 mg DAILY MICHELLE Administration Citalopram Hydrobromide 40 mg 10/24/21 09:00 10/24/21 07:37 Citalopram Hydrobromide 20 Mg Tab PO 40 mg DAILY MICHELLE Administration Diltiazem HCl 360 mg 10/24/21 09:00 10/24/21 08:12 Diltiazem Cd 180 Mg Cap.Er.24h PO 360 mg DAILY MICHELLE Administration Docusate Sodium 100 mg 10/24/21 09:00 10/24/21 07:36 Docusate 100 Mg Cap PO 100 mg DAILY MICHELLE Administration Gabapentin 800 mg 10/24/21 09:00 10/24/21 07:37 Gabapentin 400 Mg Cap PO 800 mg TID MICHELLE Administration Sodium Chloride 1,000 mls @ 20 mls/hr 10/23/21 22:30 10/23/21 23:14 Saline 0.9% IV 20 mls/hr .Q24H MICHELLE Administration Heparin Sodium/Sodium Chloride 250 mls @ 10 mls/hr 10/23/21 22:30 10/24/21 09:10 25,000 unit/ Sodium Chloride IV 0 units/kg/hr .Q24H MICHELLE 0 mls/hr Titration Protocol 8.8185 UNITS/KG/HR Heparin Sodium (Porcine) 10, 1,001 mls @ 999 mls/hr 10/25/21 07:00 000 unit/ Sodium Chloride IRRIGATION 10/25/21 23:00 ONCE PRN INTRA-OP Heparin Sodium (Porcine) 2,500 250.5 mls @ 250 mls/hr 10/25/21 07:00 unit/ Sodium Chloride IRRIGATION 10/25/21 23:00 ONCE PRN INTRA-OP Ipratropium [place] 2 spray 10/24/21 09:00 10/24/21 08:59 Ipratropium [place] 0.06% Nasal [place] (15 Ml) EA NOSTRIL Not Given BID [facility] Levothyroxine Sodium 25 mcg 10/24/21 06:30 10/24/21 05:36 Levothyroxine 25 Mcg Tab PO 25 mcg DAILY@0630 MICHELLE Administration Lisinopril 10 mg 10/24/21 09:00 10/24/21 07:38 Lisinopril 10 Mg Tab PO 10 mg DAILY MICHELLE Administration Loratadine 10 mg 10/24/21 09:00 10/24/21 07:37 Loratadine 10 Mg Tab PO 10 mg DAILY MICHELLE Administration Morphine Sulfate 15 mg 10/24/21 09:00 10/24/21 07:40 Morphine Sulfate Ir 15 Mg Tablet PO 15 mg QID MICHELLE Administration Nitroglycerin 1 inch 10/24/21 00:00 10/24/21 05:36 Nitroglycerin Oint 1 Inch/Gm Packet TOPICAL Not Given Q6HR MICHELLE Nitroglycerin 0.4 mg 10/24/21 08:18 Nitroglycerin Sl Tabs 0.4 Mg Tab SUBLINGUAL Q5M PRN Chest Pain Non-Formulary Medication 50 mg 10/24/21 21:00 Dolutegravir Sodium [Tivicay] PO HS MICHELLE Non-Formulary Medication 37.5 mg 10/24/21 09:00 10/24/21 07:44 Phentermine Hcl [Adipex-P] PO Not Given DAILY MICHELLE Non-Formulary Medication 1 tab 10/24/21 21:00 Emtricitabine/Tenofov Alafenam [Descovy 200-25 Mg Tablet] PO HS MICHELLE Non-Formulary Medication 200 mg 10/24/21 09:00 10/24/21 07:44 Intelence 200mg PO Not Given BID MICHELLE Trazodone HCl 150 mg 10/24/21 00:29 10/24/21 00:37 Trazodone Hcl 50 Mg Tab PO 150 mg HS MICHELLE Administration Triamterene/Hydrochlorothiazide 1 each 10/24/21 09:00 10/24/21 07:37 Triamterene-Hctz 37.5-25mg 1 Each Tab PO 1 each DAILY MICHELLE Administration Intake and Output 10/23/21 10/24/21 10/24/21 22:59 06:59 14:59 Intake Total 203.898 Balance 203.898 Intake: IV 100 Intake, IV Titration 103.898 Amount Heparin Sod,Pork in 0.45% 103.898 NaCl 25,000 unit In 0.45 % NaCl 1 250ml.bag @ 8. 8185 UNITS/KG/HR 10 mls/ hr IV .Q24H [facility] Rx#: [id number] Other: Voiding Method Toilet # Voids 2 Weight 113.398 kg 10/23/21 19:18 10/23/21 19:18
--- NOTE | 2021-10-24 10:26 | P.CARDCATH ---
Description of Procedure: PROCEDURES PERFORMED: Left heart catheterization, bilateral coronary angiography INDICATION: Unstable angina CONSENT:I have discussed the risks, benefits and alternative therapies for the above-mentioned procedure and for both sedation/analgesia as well as necessary blood product administration, if indicated, as they pertain to this patient. The patient has indicated understanding and acceptance of the risks and procedures discussed. PROCEDURE: After the risks, benefits and alternatives of the above mentioned procedure explained in detail with the patient, informed consent was obtained. Patient was taken to the catheterization lab and prepped and draped in usual fashion. 1% lidocaine was used to anesthetize the right radial artery. A 6- Uzbek sheath was placed in the right radial artery using modified Seldinger technique. Left coronary angiography was performed with a 5-Uzbek JL 3.5 catheter and right coronary angiography was performed with a 5-Uzbek JR5 catheter in various views. A 5-Uzbek FR5 catheter was inserted into the left ventricle and pressure measurements were obtained. The right radial sheath was removed and a TR band was placed with hemostasis achieved. The patient tolerated the procedure well. Patient was transported back to the post catheterization holding area in stable condition. Conscious Sedation: Patient was monitored under the direct supervision of vision of myself for conscious sedation using Versed and fentanyl for a total duration of 13 minutes HEMODYNAMICS: Ao: 122/97 LV: 118/7, LVEDP 26mmHg SELECTIVE CORONARY ARTERIOGRAPHY: LEFT MAIN: The left main is a large caliber vessel which bifurcates into the LAD and circumflex. There is a distal left main 85% stenosis. LEFT ANTERIOR DESCENDING CORONARY ARTERY: LAD is a large caliber vessel which wraps around to the apex. There is proximal LAD 20-30% stenosis and otherwise mild luminal irregularities. There are [id number] collaterals. LEFT CIRCUMFLEX CORONARY ARTERY: Left circumflex is a moderate caliber vessel. The circumflex gives off a high OM 1 without significant stenosis and then the circumflex gives off a small to moderate caliber OM 2 with more proximal circumflex 40-50% stenosis just after OM1. RIGHT CORONARY ARTERY: The right coronary artery is a large caliber vessel which gives off a PDA and PLV branch and is the dominant vessel. There is 100% proximal RCA stenosis. FINAL IMPRESSION: 1. CAD as described above including 85% distal left main stenosis, proximal LAD 20-30% stenosis, proximal circumflex 40-50% stenosisand 100% RCA stenosis with [id number] collaterals 2. Elevated left sided filling pressures PLAN: 1. Aggressive risk factor modification per most recent ACC/AHA guidelines. 2. Optimize heart failure regimen as able, diuresis patient. 3. CABG evaluation. Patient currently appears stable however if has any signs of decompensation may need support device.
[2021-10-24] MEDS: MORPHINE SULFATE 4 MG/ML SYRINGE IVP PRN (10:47)
[2021-10-24] MEDS: FUROSEMIDE 10 MG/ML 4 ML VIAL IV SCH ×2 (10:55→21:14)
[2021-10-24] MEDS: NITROGLYCERIN-D5W PMX 50 MG in DEXTROSE/WATER 1 250ML.BAG IV SCH (11:03)
[2021-10-24 13:11] LABS: ALT 29 U/L (4-49); AST 35 U/L (17-59); African American GFR (CKD) >90 (>60 ml/min/1.73 sqM); Albumin 4.4 g/dL (3.5-5.0); Alkaline Phosphatase 69 U/L (38-126); Anion Gap 9 mmol/L; Blood Urea Nitrogen 15 mg/dL (9-20); Calcium 9.5 mg/dL (8.4-10.2); Carbon Dioxide 27 mmol/L (22-30); Chloride 99 mmol/L (98-107); Glucose 100 mg/dL (74-99); Magnesium 1.9 mg/dL (1.6-2.3); Non-African American GFR(CKD) >90 (>60 ml/min/1.73 sqM); Potassium 4.1 mmol/L (3.5-5.1); Sodium 135 mmol/L (137-145); Total Bilirubin 0.5 mg/dL (0.2-1.3); Total Protein 7.4 g/dL (6.3-8.2)
[2021-10-24 13:24] LABS: Basophils # (A) 0.2 k/uL (0-0.2); Basophils % (A) 2 %; Eosinophils # (A) 0.3 k/uL (0-0.7); Eosinophils % (A) 3 %; HGB 17.6 gm/dL (13.0-17.5); Lymphocytes % (A) 18 %; MCH 28.8 pg (25.0-35.0); MCHC 31.7 g/dL (31.0-37.0); MCV 90.8 fL (80.0-100.0); Mean Platelet Volume 7.2; Monocytes # (A) 0.9 k/uL (0-1.0); Monocytes % (A) 8 %; Neutrophils # (A) 7.4 k/uL (1.3-7.7); Neutrophils % (A) 68 %; Platelet Count 269 k/uL (150-450); RBC 6.13 m/uL (4.30-5.90); RDW 13.1 % (11.5-15.5); WBC 10.9 k/uL (3.8-10.6)
[2021-10-24 13:35] LABS: HCT 55.6 % (39.0-53.0)
--- NOTE | 2021-10-24 15:00 | P.GSCN ---
History of Present Illness Consult date: 10/24/21 Reason for Consult: Coronary artery disease with left main disease Requesting physician: Richard Solomon History of present illness: This is a 61-year-old gentleman who follows on an outpatient basis with Dr. Rojo for primary care. He has a previous medical history of hypertension, hypothyroid, HIV positive, anxiety/depression, current tobacco dependence, and significant family history of premature coronary artery disease. He presented to [facility] emergency room yesterday with complaints of retrosternal chest pain which radiated down his left arm associated with some diaphoresis. Denied any shortness of breath. Troponins were negative 3. EKG showed sinus rhythm with no ischemic changes. Chest x-ray demonstrated no acute process. The patient did recently have a dobutamine stress test in July 2021 which was negative for ischemia. Due to the patient's presenting symptoms and his history he was admitted for evaluation and treatment with recommendations made for heart catheterization. Heart catheterization was completed today and demonstrated distal left main stenosis 85%, proximal RCA stenosis 100%, proximal LAD 20-30% stenosis, proximal circumflex stenosis 40-50% with elevated left sided filling pressures. Consultation was placed to Dr. Chance from cardiothoracic surgery for surgical revascularization recommendations. Review of Systems Review of systems was completed and was negative except as noted - Cardiovascular Reports as per HPI, Reports chest pain Past Medical History Past Medical History: COPD, GERD/Reflux, Hypertension, Osteoarthritis (OA) Additional Past Medical History / Comment(s): HIV/AIDS(1990) back pain, neuropathy,sleep apnea History of Any Multi-Drug Resistant Organisms: None Reported Additional Past Surgical History / Comment(s): neck surgery, throat surgery Past Anesthesia/Blood Transfusion Reactions: No Reported Reaction Past Psychological History: Bipolar, Depression, Panic Disorder Additional Psychological History / Comment(s): Pt resides alone in an apartment. He uses a walker to ambulate. He is disabled. He drives. Smoking Status: Current every day smoker Past Alcohol Use History: Occasional Additional Past Alcohol Use History / Comment(s): Pt started smoking in 1976 and is about a ppd smoker. He occasionally drinks alcohol-black carver radha. Past Drug Use History: None Reported - Past Family History Brother(s) Family Medical History: Diabetes Mellitus, Myocardial Infarction (ID) Father Family Medical History: Cancer, Myocardial Infarction (ID) Additional Family Medical History / Comment(s): Father of throat cancer. Father had myocardial infarction in his 50s Mother Additional Family Medical History / Comment(s): Mother of a ruptured brain aneurysm. Medications and Allergies Home Medications Medication Instructions Recorded Confirmed Type Quinapril HCl [Accupril] 10 mg PO DAILY 05/31/16 10/23/21 History Emtricitabine/Tenofov Alafenam 1 tab PO HS 09/01/18 10/23/21 History [Descovy 200-25 mg Tablet] Levothyroxine Sodium [Synthroid] 25 mcg PO DAILY 09/01/18 10/23/21 History traZODone HCL 150 mg PO HS 09/01/18 10/23/21 History Citalopram Hydrobromide [CeleXA] 40 mg PO DAILY 03/31/19 10/23/21 History Diltiazem HCl [Diltiazem HCl 24Hr 360 mg PO DAILY 03/31/19 10/23/21 History ER] Intelence 200mg 200 mg PO BID 03/31/19 10/23/21 History Baclofen [Lioresal] 20 mg PO QID 11/22/20 10/23/21 History Cetirizine HCl [Zyrtec] 10 mg PO DAILY 11/22/20 10/23/21 History Gabapentin 800 mg PO TID 11/22/20 10/23/21 History Triamterene/Hydrochlorothiazid 1 tab PO DAILY 11/22/20 10/23/21 History [Triamterene-Hctz 37.5-25 mg Tb] Morphine Sulfate Ir [MSIR] 15 mg PO QID 05/10/21 10/23/21 History Dolutegravir Sodium [Tivicay] 50 mg PO HS 08/14/21 10/23/21 History Ipratropium [place] 0.06%Nasal 2 spray EA NOSTRIL BID 08/14/21 10/23/21 History [Atrovent Nasal 0.06%] Mupirocin 2% Oint [Bactroban 2% 1 applic TOPICAL BID PRN 08/14/21 10/23/21 History Oint] Cephalexin [Keflex] 500 mg PO Q6H 10/23/21 10/23/21 History Docusate Sodium [Dok] 100 mg PO DAILY 10/23/21 10/23/21 History Phentermine HCl [Adipex-P] 37.5 mg PO DAILY 10/23/21 10/23/21 History buPROPion XL [Wellbutrin XL] 300 mg PO DAILY 10/23/21 10/23/21 History Allergies Allergy/AdvReac Type Severity Reaction Status Date / Time azithromycin Allergy Rash/Hives Verified 10/23/21 19:15 [From Zithromax Z-Simone] Sulfa (Sulfonamide Allergy Rash/Hives Verified 10/23/21 19:15 Antibiotics) Surgical - Exam Vital Signs Temp Pulse Resp BP Pulse Ox 98 F 94 20 143/91 94 L 10/23/21 19:10 10/23/21 19:10 10/23/21 19:10 10/23/21 19:10 10/23/21 19:10 CONSTITUTIONAL: Awake and alert, appears comfortable, cooperative, well- developed, well-nourished, no pain, no acute distress EYES: Pupils equal, round, reactive to light, normal ocular movement ENT: Moist mucous membranes without oral lesions present NECK: No masses, no bruits, trachea midline RESPIRATORY: Lungs sounds clear to auscultation bilaterally. Respirations even, nonlabored. Currently on 3 L nasal cannula with oxygen saturation 92%. Strong cough. CARDIOVASCULAR: S1, S2 present. Regular rate and rhythm, sinus rhythm on telemetry. Palpable peripheral pulses bilaterally. Trace bilateral lower extremity edema present. No calf pain or tenderness noted. GASTROINTESTINAL: Abdomen soft, nontender, nondistended without masses or organomegaly noted. There is no rebound or guarding present. Active bowel sounds present 4 quadrants. GENITOURINARY: Deferred INTEGUMENTARY: Skin is warm and dry with evidence of good perfusion. NEUROLOGIC: Cranial nerves II through XII intact, normal coordination, no obvious motor or sensory deficits, speech is normal MUSKULOSKELETAL: Able to move all extremities, strength equal bilaterally, normal posture PSYCHIATRIC: Alert and oriented to person place and time, appropriate affect, intact judgment and insight Results - Labs 10/28/21 07:59 10/28/21 07:59 Abnormal Lab Results - Last 24 Hours (Table) 10/23/21 10/23/21 10/24/21 Range/Units 19:18 19:18 12:25 WBC 13.3 H 10.9 H (3.8-10.6) k/uL RBC 6.13 H (4.30-5.90) m/uL Hgb 17.6 H (13.0-17.5) gm/dL Hct 55.6 H (39.0-53.0) % Neutrophils # 9.4 H (1.3-7.7) k/uL Sodium 131 L (137-145) mmol/L Chloride 96 L (98-107) mmol/L Glucose 101 H (74-99) mg/dL 10/24/21 Range/Units 12:25 WBC (3.8-10.6) k/uL RBC (4.30-5.90) m/uL Hgb (13.0-17.5) gm/dL Hct (39.0-53.0) % Neutrophils # (1.3-7.7) k/uL Sodium 135 L (137-145) mmol/L Chloride (98-107) mmol/L Glucose 100 H (74-99) mg/dL Diabetes panel 10/23/21 10/24/21 10/24/21 Range/Units 19:18 06:18 12:25 Sodium 131 L 135 L (137-145) mmol/L Potassium 4.2 4.1 (3.5-5.1) mmol/L Chloride 96 L 99 (98-107) mmol/L Carbon Dioxide 28 27 (22-30) mmol/L BUN 17 15 (9-20) mg/dL Creatinine 0.98 0.91 (0.66-1.25) mg/dL Glucose 101 H 100 H (74-99) mg/dL Calcium 9.8 9.5 (8.4-10.2) mg/dL AST 34 35 (17-59) U/L ALT 27 29 (4-49) U/L Alkaline Phosphatase 64 69 (38-126) U/L Total Protein 7.2 7.4 (6.3-8.2) g/dL Albumin 4.4 4.4 (3.5-5.0) g/dL Triglycerides 135.00 (0.00-149.00) mg/dL HDL Cholesterol 45.50 (40.00-60.00) mg/dL Thyroid panel 10/24/21 Range/Units 12:25 TSH 2.060 (0.465-4.680) mIU/L Calcium panel 10/23/21 10/24/21 Range/Units 19:18 12:25 Calcium 9.8 9.5 (8.4-10.2) mg/dL Albumin 4.4 4.4 (3.5-5.0) g/dL Pituitary panel 10/23/21 10/24/21 Range/Units 19:18 12:25 Sodium 131 L 135 L (137-145) mmol/L Potassium 4.2 4.1 (3.5-5.1) mmol/L Chloride 96 L 99 (98-107) mmol/L Carbon Dioxide 28 27 (22-30) mmol/L BUN 17 15 (9-20) mg/dL Creatinine 0.98 0.91 (0.66-1.25) mg/dL Glucose 101 H 100 H (74-99) mg/dL Calcium 9.8 9.5 (8.4-10.2) mg/dL TSH 2.060 (0.465-4.680) mIU/L Adrenal panel 10/23/21 10/24/21 Range/Units 19:18 12:25 Sodium 131 L 135 L (137-145) mmol/L Potassium 4.2 4.1 (3.5-5.1) mmol/L Chloride 96 L 99 (98-107) mmol/L Carbon Dioxide 28 27 (22-30) mmol/L BUN 17 15 (9-20) mg/dL Creatinine 0.98 0.91 (0.66-1.25) mg/dL Glucose 101 H 100 H (74-99) mg/dL Calcium 9.8 9.5 (8.4-10.2) mg/dL Total Bilirubin 0.3 0.5 (0.2-1.3) mg/dL AST 34 35 (17-59) U/L ALT 27 29 (4-49) U/L Alkaline Phosphatase 64 69 (38-126) U/L Total Protein 7.2 7.4 (6.3-8.2) g/dL Albumin 4.4 4.4 (3.5-5.0) g/dL - Imaging Chest x-ray: image reviewed EKG: image reviewed Additional studies: Heart catheterization films were reviewed with Dr. Chance Assessment and Plan Assessment: 1. Coronary artery disease with left main disease 2. History of hypertension 3. Hypothyroid 4. HIV positive 5. Anxiety/depression 6. Current tobacco dependence 7. Significant family history of premature coronary artery disease Plan: The patient was seen and examined on the cardiac stepdown unit with Dr. Chance. Chart/diagnostics were reviewed. Preoperative testing was initiated. The p radha's pulmonary function test revealed severe obstructive lung disease. The patient would be considered very high risk for surgical revascularization. This was discussed between Dr. Chance and Dr. Solomon. At this time we would recommend continuing current medical treatment. The patient may be better suited for left main stenting and this will be discussed with the patient by Dr. Solomon. Patient is encouraged to quit smoking. More recommendations to follow. Thank you Dr. Solomon for this consult. We will follow along with you. I have personally seen and examined the patient, performed the documentation and the assessment and plan as written. Number of minutes spent on the visit: 30. TOSHIA Eid
--- NOTE | 2021-10-24 18:33 | P.HPIM ---
History of Present Illness H&P Date: 10/24/21 Chief Complaint: Chest pain Jack Luna, is a 61-year-old male who presented to [facility] emergency room with a chief complaint of chest pain He was evaluated in the emergency room vital examination on presentation revealed a temperature of 98 pulse 94 respiration 20 blood pressure 143/91 pulse ox 94% on room air Laboratory data revealed a white blood count of 13.3 IMO globin 16.5 platelet count 258 sodium 131 potassium 4.2 chloride 96 CO2 28 BUN 17 creatinine 0.98 troponin level was 0.0-4 Testing in the emergency room revealed EKG done in the emergency room revealed sinus rhythm with first-degree AV block and incomplete right bundle branch block, chest x-ray done in the emergency room revealed evidence of cardiomegaly otherwise no abnormality seen. Patient was admitted to medical floor for further evaluation and treatment, cardiology consultation was requested. Past medical history is significant for history of hypertension, history of COPD, history of osteoarthritis, history of HIV AIDS syndrome diagnosed in 1990 maintained on medications through infectious disease in [place], history of peripheral neuropathy, history of obstructive sleep apnea, history of degenerative disc disease, history of bipolar disorder, history of recurrent bi lateral lower extremity cellulitis and history of tobacco use Past Medical History Past Medical History: COPD, GERD/Reflux, Hypertension, Osteoarthritis (OA) Additional Past Medical History / Comment(s): HIV/AIDS(1990) back pain, neur opathy,sleep apnea History of Any Multi-Drug Resistant Organisms: None Reported Additional Past Surgical History / Comment(s): neck surgery, throat surgery Past Anesthesia/Blood Transfusion Reactions: No Reported Reaction Past Psychological History: Bipolar, Depression, Panic Disorder Additional Psychological History / Comment(s): Pt resides alone in an apartment. He uses a walker to ambulate. He is disabled. He drives. Smoking Status: Current every day smoker Past Alcohol Use History: Occasional Additional Past Alcohol Use History / Comment(s): Pt started smoking in 1976 and is about a ppd smoker. He occasionally drinks alcohol-black carver radha. Past Drug Use History: None Reported - Past Family History Brother(s) Family Medical History: Diabetes Mellitus Father Family Medical History: Cancer Additional Family Medical History / Comment(s): Father of throat cancer. Mother Additional Family Medical History / Comment(s): Mother of a ruptured brain aneurysm. Medications and Allergies Home Medications Medication Instructions Recorded Confirmed Type Quinapril HCl [Accupril] 10 mg PO DAILY 05/31/16 10/23/21 History Emtricitabine/Tenofov Alafenam 1 tab PO HS 09/01/18 10/23/21 History [Descovy 200-25 mg Tablet] Levothyroxine Sodium [Synthroid] 25 mcg PO DAILY 09/01/18 10/23/21 History traZODone HCL 150 mg PO HS 09/01/18 10/23/21 History Citalopram Hydrobromide [CeleXA] 40 mg PO DAILY 03/31/19 10/23/21 History Diltiazem HCl [Diltiazem HCl 24Hr 360 mg PO DAILY 03/31/19 10/23/21 History ER] Intelence 200mg 200 mg PO BID 03/31/19 10/23/21 History Baclofen [Lioresal] 20 mg PO QID 11/22/20 10/23/21 History Cetirizine HCl [Zyrtec] 10 mg PO DAILY 11/22/20 10/23/21 History Gabapentin 800 mg PO TID 11/22/20 10/23/21 History Triamterene/Hydrochlorothiazid 1 tab PO DAILY 11/22/20 10/23/21 History [Triamterene-Hctz 37.5-25 mg Tb] Morphine Sulfate Ir [MSIR] 15 mg PO QID 05/10/21 10/23/21 History Dolutegravir Sodium [Tivicay] 50 mg PO HS 08/14/21 10/23/21 History Ipratropium [place] 0.06%Nasal 2 spray EA NOSTRIL BID 08/14/21 10/23/21 History [Atrovent Nasal 0.06%] Mupirocin 2% Oint [Bactroban 2% 1 applic TOPICAL BID PRN 08/14/21 10/23/21 History Oint] Cephalexin [Keflex] 500 mg PO Q6H 10/23/21 10/23/21 History Docusate Sodium [Dok] 100 mg PO DAILY 10/23/21 10/23/21 History Phentermine HCl [Adipex-P] 37.5 mg PO DAILY 10/23/21 10/23/21 History buPROPion XL [Wellbutrin XL] 300 mg PO DAILY 10/23/21 10/23/21 History Allergies Allergy/AdvReac Type Severity Reaction Status Date / Time azithromycin Allergy Rash/Hives Verified 10/23/21 19:15 [From Zithromax Z-Simone] Sulfa (Sulfonamide Allergy Rash/Hives Verified 10/23/21 19:15 Antibiotics) Physical Exam Vitals: Vital Signs Temp Pulse Pulse Resp BP BP Pulse Ox 10/24/21 07:32 97.6 F 90 18 118/74 94 L 10/24/21 00:06 97.6 F 87 21 148/92 93 L 10/23/21 23:02 75 14 114/81 90 L 10/23/21 20:36 97.9 F 90 20 144/105 93 L 10/23/21 19:10 98 F 94 20 143/91 94 L Intake and Output 10/23/21 10/24/21 10/24/21 22:59 06:59 14:59 Intake Total 203.898 Balance 203.898 Intake: IV 100 Intake, IV Titration 103.898 Amount Heparin Sod,Pork in 0.45% 103.898 NaCl 25,000 unit In 0.45 % NaCl 1 250ml.bag @ 8. 8185 UNITS/KG/HR 10 mls/ hr IV .Q24H [facility] Rx#: [id number] Other: Voiding Method Toilet # Voids 2 Weight 113.398 kg In general patient is alert and oriented x 3 in no distress HEENT head normocephalic and atraumatic Neck is supple no JVD no goiter no lymphadenopathy no carotid bruit Chest examination is clear to auscultation no crackles no wheezing Cardiac exam reveals regular heart sounds S1 and S2 no gallops no murmurs Abdomen is soft nontender no organomegaly with normal bowel sounds Extremity exam reveals no edema no cyanosis or clubbing Neurological examination reveals no gross focal deficits Results CBC & Chem 7: 10/24/21 12:25 10/24/21 12:25 Labs: Abnormal Lab Results - Last 24 Hours (Table) 10/23/21 10/23/21 Range/Units 19:18 19:18 WBC 13.3 H (3.8-10.6) k/uL Neutrophils # 9.4 H (1.3-7.7) k/uL Sodium 131 L (137-145) mmol/L Chloride 96 L (98-107) mmol/L Glucose 101 H (74-99) mg/dL Thrombosis Risk Factor Assmnt - Choose All That Apply Each Factor Represents 1 point: Age 41-60 years, Obesity (BMI >25) Thrombosis Risk Factor Assessment Total Risk Factor Score: 2 Thrombosis Risk Factor Assessment Level: Low Risk Assessment and Plan Plan: Episode of chest pain patient is admitted to telemetry floor cardiology consultation requested serial EKG and cardiac enzymes ordered Underlying history of hypertension Underlying history of COPD Underlying history of HIV AIDS syndrome Underlying history of osteoarthritis Underlying history of degenerative disc disease Underlying history of bipolar disorder Underlying history of anxiety with panic disorder Underlying history of continued tobacco use At this time patient is admitted to telemetry floor Home medications reviewed and reordered Cardiology consultation requested Patient was counseled in length in regard to smoking cessation
[2021-10-24 18:34] LABS: Hepatitis A Antibody IgM Nonreactive (Nonreactive); Hepatitis B Core IgM Nonreactive (Nonreactive); Hepatitis B Surface Antigen Nonreactive (Nonreactive); Hepatitis C IgG Antibody Nonreactive (Nonreactive)
[2021-10-24 18:42] LABS: Appearance,Urine Clear (Clear); Bilirubin,Urine Negative (Negative); Blood,Urine Negative (Negative); Color,Urine Yellow; Glucose,Urine (UA) Negative (Negative); Ketones,Urine Negative (Negative); Leukocyte Esterase,Urine Negative (Negative); Nitrite,Urine Negative (Negative); PH, Urine 6.5 (5.0-8.0); Protein,Urine Negative (Negative); Specific Gravity,Urine 1.018 (1.001-1.035); Urobilinogen,Urine <2.0 mg/dL (<2.0)
[2021-10-24] MEDS ORDERED: DOLUTEGRAVIR SODIUM 50 MG PO SCH (21:00)
[2021-10-24] MEDS ORDERED: NON FORMULARY DRUG (Emtricitabine/Tenofov Alafenam [Descovy 200-25 Mg Tablet] 1 EACH Table PO SCH (21:00)
[2021-10-24] MEDS ORDERED: traZODone HCL 50 MG TAB PO SCH (21:00)
[2021-10-24] MEDS: HEPARIN SOD,PORK IN 0.45% NACL 25,000 UNIT in 0.45% NACL 1 250ML.BAG IV SCH (21:07)
[2021-10-24] MEDS: Emtricitabine/Tenofov Alafenam [Descovy 200-25 Mg Tablet] PO SCH (21:09)
[2021-10-24] MEDS: INTELENCE 200 MG PO SCH (21:09)
[2021-10-24] MEDS: ACETAMINOPHEN TAB 325 MG TAB PO PRN (21:11)
[2021-10-24] MEDS: SODIUM CHLORIDE 0.9% 1,000 ML IV SCH (22:51)
[2021-10-25] MEDS: ALPRAZolam 0.25 MG TAB PO PRN (00:52)
[2021-10-25] MEDS: LEVOTHYROXINE 25 MCG TAB PO SCH (05:57)
[2021-10-25] MEDS ORDERED: HEPARIN SODIUM,PORCINE 2,500 UNIT in SODIUM CHLORIDE 0.9% 250 ML IRRIGATION PRN (07:00)
[2021-10-25] MEDS ORDERED: HEPARIN SODIUM,PORCINE 10,000 UNIT in SODIUM CHLORIDE 0.9% 1,000 ML IRRIGATION PRN (07:00)
[2021-10-25] MEDS: MORPHINE SULFATE 4 MG/ML SYRINGE IVP PRN ×2 (08:30→16:41)
[2021-10-25] MEDS: BACLOFEN 10 MG TAB PO SCH ×4 (09:21→20:48)
[2021-10-25] MEDS: TRIAMTERENE-HCTZ 37.5-25MG 1 EACH TAB PO SCH (09:22)
[2021-10-25] MEDS: buPROPion XL 300 MG TAB.ER.24H PO SCH (09:22)
[2021-10-25] MEDS: DOCUSATE 100 MG CAP PO SCH (09:22)
[2021-10-25] MEDS: ASPIRIN 81 MG PO SCH (09:22)
[2021-10-25] MEDS: DILTIAZEM CD 180 MG CAP.ER.24H PO SCH (09:22)
[2021-10-25] MEDS: MORPHINE SULFATE IR 15 MG TABLET PO SCH ×3 (09:22→17:27)
[2021-10-25] MEDS: GABAPENTIN 400 MG CAP PO SCH ×3 (09:23→20:48)
[2021-10-25] MEDS: LORATADINE 10 MG TAB PO SCH (09:23)
[2021-10-25] MEDS: FUROSEMIDE 10 MG/ML 4 ML VIAL IV SCH ×2 (09:23→20:48)
[2021-10-25] MEDS: lisinopriL 10 MG TAB PO SCH (09:23)
[2021-10-25] MEDS: CITALOPRAM HYDROBROMIDE 20 MG TAB PO SCH (09:23)
[2021-10-25] MEDS: INTELENCE 200 MG PO SCH ×2 (09:24→20:49)
[2021-10-25] MEDS: IPRATROPIUM BROMIDE 0.06% NASAL SPRAY (15 ML) EA NOSTRIL SCH ×2 (09:26→20:49)
[2021-10-25 09:39] LABS: Basophils % (A) 0 %; Eosinophils # (A) 0.2 k/uL (0-0.7); Eosinophils % (A) 2 %; HCT 51.2 % (39.0-53.0); HGB 16.3 gm/dL (13.0-17.5); Lymphocytes # (A) 1.2 k/uL (1.0-4.8); Lymphocytes % (A) 11 %; MCH 28.8 pg (25.0-35.0); MCHC 31.9 g/dL (31.0-37.0); MCV 90.5 fL (80.0-100.0); Mean Platelet Volume 6.7; Monocytes # (A) 0.6 k/uL (0-1.0); Monocytes % (A) 6 %; Neutrophils % (A) 78 %; Platelet Count 254 k/uL (150-450); RBC 5.66 m/uL (4.30-5.90); RDW 13.6 % (11.5-15.5); WBC 10.2 k/uL (3.8-10.6)
[2021-10-25 09:58] LABS: ALT 26 U/L (4-49); AST 29 U/L (17-59); African American GFR (CKD) >90 (>60 ml/min/1.73 sqM); Albumin 4.1 g/dL (3.5-5.0); Alkaline Phosphatase 69 U/L (38-126); Anion Gap 7 mmol/L; Blood Urea Nitrogen 15 mg/dL (9-20); Carbon Dioxide 28 mmol/L (22-30); Chloride 102 mmol/L (98-107); Glucose 104 mg/dL (74-99); Non-African American GFR(CKD) 86 (>60 ml/min/1.73 sqM); Potassium 4.3 mmol/L (3.5-5.1); Sodium 137 mmol/L (137-145); Total Bilirubin 0.5 mg/dL (0.2-1.3); Total Protein 6.8 g/dL (6.3-8.2)
--- NOTE | 2021-10-25 10:00 | P.PN ---
Subjective Progress Note Date: 10/25/21 Jack Luna, is a 61-year-old male who presented to [facility] emergency room with a chief complaint of chest pain He was evaluated in the emergency room vital examination on presentation r evealed a temperature of 98 pulse 94 respiration 20 blood pressure 143/91 pulse ox 94% on room air Laboratory data revealed a white blood count of 13.3 IMO globin 16.5 platelet count 258 sodium 131 potassium 4.2 chloride 96 CO2 28 BUN 17 creatinine 0.98 troponin level was 0.0-4 Testing in the emergency room revealed EKG done in the emergency room revealed sinus rhythm with first-degree AV block and incomplete right bundle branch block, chest x-ray done in the emergency room revealed evidence of cardiomegaly otherwise no abnormality seen. Patient was admitted to medical floor for further evaluation and treatment, cardiology consultation was requested. Past medical history is significant for history of hypertension, history of COPD, history of osteoarthritis, history of HIV AIDS syndrome diagnosed in 1990 maintained on medications through infectious disease in [place], history of peripheral neuropathy, history of obstructive sleep apnea, history of degenerative disc disease, history of bipolar disorder, history of recurrent bilateral lower extremity cellulitis and history of tobacco use On 10/25/2021 patient is alert and oriented 3. Patient is status post cardiac catheterization which patient was found to have multivessel disease including 85% distal left main stenosis, proximal LAD 20-30% stenosis proximal circumflex 40-55% stenosis and 100% RCA stenosis with [id number] collaterals. Patient was evaluated by cardiothoracic surgery but appears that the plan at this time is to proceed with catheterization and stent. Patient remains on IV heparin drip. At this time patient denies chest pain or shortness of breath. Patient denies nausea vomiting or diarrhea. Patient denies any urinary burning or frequency Objective - Vital Signs Vital signs: Vital Signs Temp 98.4 F 10/25/21 04:00 Pulse 71 10/25/21 04:00 Resp 18 10/25/21 04:00 BP 112/56 10/25/21 04:00 Pulse Ox 91 L 10/25/21 04:00 FiO2 Intake & Output 10/24/21 10/25/21 10/25/21 18:59 06:59 18:59 Intake Total 203.898 77.167 Output Total 750 1925 Balance -546.102 -1847.833 Weight 110.2 kg Intake: IV 100 Intake, IV Titration 103.898 77.167 Amount Heparin Sod,Pork in 0.45% 103.898 77.167 NaCl 25,000 unit In 0.45 % NaCl 1 250ml.bag @ 8. 8185 UNITS/KG/HR 10 mls/ hr IV .Q24H [facility] Rx#: [id number] Output: Urine 750 1925 Other: Voiding Method Urinal Urinal # Voids 1 1 - Exam In general patient is alert and oriented x 3 in no distress HEENT head normocephalic and atraumatic Neck is supple no JVD no goiter no lymphadenopathy no carotid bruit Chest examination is clear to auscultation no crackles no wheezing Cardiac exam reveals regular heart sounds S1 and S2 no gallops no murmurs Abdomen is soft nontender no organomegaly with normal bowel sounds Extremity exam reveals no edema no cyanosis or clubbing Neurological examination reveals no gross focal deficits - Labs CBC & Chem 7: 10/25/21 09:24 10/24/21 12:25 Labs: Abnormal Lab Results - Last 24 Hours (Table) 10/24/21 10/24/21 10/24/21 Range/Units 12:25 12:25 12:25 WBC 10.9 H (3.8-10.6) k/uL RBC 6.13 H (4.30-5.90) m/uL Hgb 17.6 H (13.0-17.5) gm/dL Hct 55.6 H (39.0-53.0) % Neutrophils # (1.3-7.7) k/uL APTT (22.0-30.0) sec Sodium 135 L (137-145) mmol/L Glucose 100 H (74-99) mg/dL Hemoglobin A1c 6.2 H (0.0-6.0) % 10/24/21 10/25/21 10/25/21 Range/Units 15:01 09:24 09:24 WBC (3.8-10.6) k/uL RBC (4.30-5.90) m/uL Hgb (13.0-17.5) gm/dL Hct (39.0-53.0) % Neutrophils # 8.0 H (1.3-7.7) k/uL APTT 20.3 L 30.1 H (22.0-30.0) sec Sodium (137-145) mmol/L Glucose (74-99) mg/dL Hemoglobin A1c (0.0-6.0) % Assessment and Plan Plan: Coronary artery disease with multivessel involvement. Post catheterization which was found to have left main stenosis of 85%, proximal RCA stenosis 100%, proximal LAD 20-30% stenosis patient was evaluated cardiothoracic surgery. Tentative plans for cardiac catheterization with stent placement Underlying history of hypertension Underlying history of COPD Underlying history of HIV AIDS syndrome Underlying history of osteoarthritis Underlying history of degenerative disc disease Underlying history of bipolar disorder Underlying history of anxiety with panic disorder Underlying history of continued tobacco use Patient remains on IV heparin drip Patient remains on IV Lasix Cardiology and cardiothoracic surgery are following Tentative plans for repeat cardiac catheterization with stent placement Labs have been ordered
[2021-10-25] MEDS: NON FORMULARY DRUG (Phentermine Hcl [Adipex-P] 37.5 MG Tablet) PO SCH (10:44)
[2021-10-25] MEDS ORDERED: HEPARIN SODIUM 1,000 UN/ML (10ML VL) IV ONE (10:56)
[2021-10-25] MEDS ORDERED: CLOPIDOGREL 75 MG TAB PO STA (12:12)
--- NOTE | 2021-10-25 13:18 | P.PN ---
Subjective This is a 61-year-old male with a past medical history significant for hypertension, HIV, anxiety, depression, and hypothyroidism. Patient follows in the office with Dr. Pineda. We have been asked to see the patient in consultation for chest pain. Patient presented to the ER with chest pain with radiation down his left arm and associated diaphoresis concerning for unstable angina. Most recent echocardiogram obtained in July 2021 revealed ejection fraction 50- 55% with moderate LVH Patient underwent cardiac catheterization with Dr. Solomon in 10/24/2021 which revealed Coronary artery disease including 85% distal left main stenosis, pr oximal LAD 20-30% stenosis, proximal circumflex 40-50% stenosis and 100% RCA stenosis with [id number] collaterals. Elevated Left sided filling pressures. Patient was evaluated by cardiothoracic surgery. Per CT surgery patient will be considered very high risk for surgical revascularization. This was discussed between Dr. Chance and Dr. Solomon. At this time they recommend continuing current medical treatment and better suited for left main stenting. 10/25/2021 Patient seen and examined at bedside, no acute distress. This chest pain is resolved. He denies any shortness of breath. However, was hypoxic overnight 86% on room air, oxygen increased to 4L nasal cannula. She is currently maintained on IV Lasix 40 mg twice a day. Patient with 2.6L urine output over the past 24 hours. Decrease in weight noted. Vital signs are stable. He is also maintained on aspirin 81 mg daily, atorvastatin 40 mg nightly, Plavix 75 mg daily, IV heparin, IV nitroglycerin PHYSICAL EXAM: VITAL SIGNS: Reviewed. GENERAL: In no acute distress HEENT: Head is normocephalic. Pupils are equal, round. Sclerae anicteric. Mucous membranes of the mouth are moist. Neck supple. No JVD LUNGS: Respirations even and unlabored. Lungs diminished bilaterally to auscultation bilaterally. HEART: Regular rate and rhythm. S1 and S2 heard. ABDOMEN: Soft. Nondistended. Nontender. EXTREMITIES: Normal range of motion. No clubbing or cyanosis. Peripheral pulses intact. 1+ bilateral lower extremity edema NEUROLOGIC: Awake and alert. Oriented x 3. ASSESSMENT: Unstable angina Coronary artery disease 85% distal left main stenosis, proximal LAD 20-30% stenosis, proximal circumflex 40-50% stenosis and 100% RCA stenosis with [id number] collaterals Elevated Left sided filling pressures Hypertension HIV Anxiety Depression Nicotine dependence Family history of premature coronary artery disease PLAN: Continue IV heparin Continue IV Nitro Obtain 2D echocardiogram Continue IV Lasix 40mg BID for additional 24 hours Continue dual antiplatelet therapy with aspirin and plavix Continue statin and lisinopril Monitor I/Os, daily weights Monitor renal function and electrolytes NPO after midnight for possible PCI tomorrow with Dr. Solomon. Further recommendations pending patient course Nurse practitioner note has been reviewed by physician. Signing provider agrees with the documented findings, assessment, and plan of care. Objective - Vital Signs Vital signs: Vital Signs Temp 98.4 F 10/25/21 04:00 Pulse 71 10/25/21 04:00 Resp 18 10/25/21 04:00 BP 112/56 10/25/21 04:00 Pulse Ox 91 L 10/25/21 04:00 FiO2 Intake & Output 10/24/21 10/25/21 10/25/21 18:59 06:59 18:59 Intake Total 203.898 77.167 83.105 Output Total 750 1925 Balance -546.102 -1847.833 83.105 Weight 110.2 kg Intake: IV 100 Intake, IV Titration 103.898 77.167 83.105 Amount Heparin Sod,Pork in 0.45% 103.898 77.167 83.105 NaCl 25,000 unit In 0.45 % NaCl 1 250ml.bag @ 8. 8185 UNITS/KG/HR 10 mls/ hr IV .Q24H [facility] Rx#: [id number] Output: Urine 750 1925 Other: Voiding Method Urinal Urinal # Voids 1 1 - Labs CBC & Chem 7: 10/25/21 09:24 10/25/21 09:24 Labs: Abnormal Lab Results - Last 24 Hours (Table) 10/24/21 10/24/21 10/24/21 Range/Units 12:25 12:25 12:25 WBC 10.9 H (3.8-10.6) k/uL RBC 6.13 H (4.30-5.90) m/uL Hgb 17.6 H (13.0-17.5) gm/dL Hct 55.6 H (39.0-53.0) % Neutrophils # (1.3-7.7) k/uL APTT (22.0-30.0) sec Sodium 135 L (137-145) mmol/L Glucose 100 H (74-99) mg/dL Hemoglobin A1c 6.2 H (0.0-6.0) % 10/24/21 10/25/21 10/25/21 Range/Units 15:01 09:24 09:24 WBC (3.8-10.6) k/uL RBC (4.30-5.90) m/uL Hgb (13.0-17.5) gm/dL Hct (39.0-53.0) % Neutrophils # 8.0 H (1.3-7.7) k/uL APTT 20.3 L 30.1 H (22.0-30.0) sec Sodium (137-145) mmol/L Glucose (74-99) mg/dL Hemoglobin A1c (0.0-6.0) % 10/25/21 Range/Units 09:24 WBC (3.8-10.6) k/uL RBC (4.30-5.90) m/uL Hgb (13.0-17.5) gm/dL Hct (39.0-53.0) % Neutrophils # (1.3-7.7) k/uL APTT (22.0-30.0) sec Sodium (137-145) mmol/L Glucose 104 H (74-99) mg/dL Hemoglobin A1c (0.0-6.0) %
--- NOTE | 2021-10-25 13:28 | P.PN ---
Subjective Progress Note Date: 10/25/21 Principal diagnosis: Coronary artery disease with left main disease. Past medical history significant for hypertension, hypothyroid, HIV positive, anxiety/depression, current tobacco dependence, and significant family history of premature coronary artery disease. The patient was seen and examined in follow-up today 10/25/2021 at his bedside on the cardiac stepdown unit. Currently he is lying in bed, is awake, alert, oriented 3 and is in no acute apparent distress. Currently denies any complaints of chest pain or shortness of breath. He remains on a heparin drip managed by cardiology. The heart catheterization was reviewed by Dr. Jack Chance from cardiothoracic surgery yesterday, treatment options were discussed between Dr. Chance and Dr. Solomon from cardiology. It was decided that the patient would be considered a very high risk for surgical revascularization candidate and will be scheduled for a high-risk PCI to the left main coronary artery. Objective - Vital Signs Vital signs: Vital Signs Temp 98.4 F 10/25/21 04:00 Pulse 71 10/25/21 04:00 Resp 18 10/25/21 04:00 BP 112/56 10/25/21 04:00 Pulse Ox 91 L 10/25/21 04:00 FiO2 Intake & Output 10/24/21 10/25/21 10/25/21 18:59 06:59 18:59 Intake Total 203.898 77.167 83.105 Output Total 750 1925 Balance -546.102 -1847.833 83.105 Weight 110.2 kg Intake: IV 100 Intake, IV Titration 103.898 77.167 83.105 Amount Heparin Sod,Pork in 0.45% 103.898 77.167 83.105 NaCl 25,000 unit In 0.45 % NaCl 1 250ml.bag @ 8. 8185 UNITS/KG/HR 10 mls/ hr IV .Q24H [facility] Rx#: [id number] Output: Urine 750 1925 Other: Voiding Method Urinal Urinal # Voids 1 1 - Exam CONSTITUTIONAL: Awake and alert, appears comfortable, cooperative, well- developed, well-nourished, no pain, no acute distress EYES: Pupils equal, round, reactive to light, normal ocular movement ENT: Moist mucous membranes without oral lesions present NECK: No masses, no bruits, trachea midline RESPIRATORY: Lungs sounds clear to auscultation bilaterally. Respirations even, nonlabored. Currently on 2 L nasal cannula with oxygen saturation 92%. Strong cough. CARDIOVASCULAR: S1, S2 present. Regular rate and rhythm, sinus rhythm on telemetry. Palpable peripheral pulses bilaterally. Trace bilateral lower extremity edema present. No calf pain or tenderness noted. GASTROINTESTINAL: Abdomen soft, nontender, nondistended without masses or organomegaly noted. There is no rebound or guarding present. Active bowel sounds present 4 quadrants. GENITOURINARY: Deferred INTEGUMENTARY: Skin is warm and dry with evidence of good perfusion. NEUROLOGIC: Cranial nerves II through XII intact, normal coordination, no obvious motor or sensory deficits, speech is normal MUSKULOSKELETAL: Able to move all extremities, strength equal bilaterally, normal posture PSYCHIATRIC: Alert and oriented to person place and time, appropriate affect, intact judgment and insight - Allied health notes Allied health notes reviewed: nursing - Labs CBC & Chem 7: 10/25/21 09:24 10/25/21 09:24 Labs: Abnormal Lab Results - Last 24 Hours (Table) 10/24/21 10/24/21 10/24/21 Range/Units 12:25 12:25 12:25 WBC 10.9 H (3.8-10.6) k/uL RBC 6.13 H (4.30-5.90) m/uL Hgb 17.6 H (13.0-17.5) gm/dL Hct 55.6 H (39.0-53.0) % Neutrophils # (1.3-7.7) k/uL APTT (22.0-30.0) sec Sodium 135 L (137-145) mmol/L Glucose 100 H (74-99) mg/dL Hemoglobin A1c 6.2 H (0.0-6.0) % 10/24/21 10/25/21 10/25/21 Range/Units 15:01 09:24 09:24 WBC (3.8-10.6) k/uL RBC (4.30-5.90) m/uL Hgb (13.0-17.5) gm/dL Hct (39.0-53.0) % Neutrophils # 8.0 H (1.3-7.7) k/uL APTT 20.3 L 30.1 H (22.0-30.0) sec Sodium (137-145) mmol/L Glucose (74-99) mg/dL Hemoglobin A1c (0.0-6.0) % 10/25/21 Range/Units 09:24 WBC (3.8-10.6) k/uL RBC (4.30-5.90) m/uL Hgb (13.0-17.5) gm/dL Hct (39.0-53.0) % Neutrophils # (1.3-7.7) k/uL APTT (22.0-30.0) sec Sodium (137-145) mmol/L Glucose 104 H (74-99) mg/dL Hemoglobin A1c (0.0-6.0) % Assessment and Plan Assessment: 1. Coronary artery disease with left main disease 2. History of hypertension 3. Hypothyroid 4. HIV positive 5. Anxiety/depression 6. Current tobacco dependence 7. Significant family history of premature coronary artery disease Plan: 1. Continue to encourage use of his incentive spirometry 10 times every hour while awake. 2. Counseling was completed with the patient on the importance of smoking ce ssation. 3. Continue current medical therapy with aspirin, statin and beta agustín. 4. The patient will be scheduled for PCI of the left main to completed by Dr. Solomon. 5. We will continue to follow the patient on a as needed basis. Please feel free to call for any further questions. Time with Patient: Greater than 30
[2021-10-25] MEDS: HEPARIN SOD,PORK IN 0.45% NACL 25,000 UNIT in 0.45% NACL 1 250ML.BAG IV SCH (16:39)
[2021-10-25] MEDS: NITROGLYCERIN-D5W PMX 50 MG in DEXTROSE/WATER 1 250ML.BAG IV SCH (16:40)
--- NOTE | 2021-10-25 18:24 | CA ---
Transthoracic Echo Report Name: Jack Luna Age: 61 Gender: M : 1960 Exam Date: 10/24/2021 14:04 Exam Location: [facility] Ht (in): 63 Wt (lb): 250 Ordering Physician: Shu Salamanca Attending/Referring Phys: Chemistry Quality Control Technician Irina Cordova RDCS Procedure CPT: Indications: unstable angina Cardiac Hx: Technical Quality: Technically difficult study Contrast 1: Lumason Total Dose (mL): 4 Contrast 2: Total Dose (mL): MEASUREMENTS (Male / Female) Normal Values 2D ECHO LA Volume 42.6 cm??? 18 - 58 / 22 - 52 cm??? DOPPLER LVOT Peak Velocity 119.9 cm/s LVOT Peak Gradient 5.7 mmHg MV Area PHT 3.1 cm??? Mitral E Point Velocity 77.8 cm/s Mitral A Point Velocity 103.6 cm/s Mitral E to A Ratio 0.8 MV Deceleration Time 243.6 ms TR Peak Velocity 123.6 cm/s TR Peak Gradient 6.1 mmHg Right Ventricular Systolic Press 11.1 mmHg FINDINGS Left Ventricle Limited views. Normal left ventricular systolic function with no obvious regional wall motion abnormalities. Left ventricular ejection fraction is estimated at 55 %. Right Ventricle Normal right ventricular size and function. Right ventricular systolic pressure within normal limits. Right Atrium Normal right atrial size. Left Atrium Normal left atrial size. Mitral Valve Mitral valve not well visualized. No mitral stenosis. Mild mitral regurgitation. Aortic Valve No aortic valve stenosis or regurgitation. Tricuspid Valve Tricuspid valve not well visualized. Mild tricuspid regurgitation. Pulmonic Valve Pulmonic valve not well visualized. Pericardium No pericardial effusion. Aorta Aortic root and proximal ascending aorta not well visualized. CONCLUSIONS Normal left ventricular ejection fraction 55% Mild mitral regurgitation Mild tricuspid regurgitation No pericardial effusion Previewed by: Dr. Richard Solomon DO (Electronically Signed) Final Date: 25 October 2021 18:23
[2021-10-25] MEDS: traZODone HCL 50 MG TAB PO SCH (20:48)
[2021-10-25] MEDS: ATORVASTATIN 40 MG TAB PO SCH (20:49)
[2021-10-25] MEDS: Emtricitabine/Tenofov Alafenam [Descovy 200-25 Mg Tablet] PO SCH (21:00)
--- NOTE | 2021-10-25 22:40 | P.CONS ---
History of Present Illness - Reason for Consult Consult date: 10/25/21 - History of Present Illness Patient is a 61-year male with a past medical history significant for HIV for the patient follow-up with ID physician in [place] however the patient mention he has not seen the physician in almost a year and a half, patient has been taking his medication that is descovery and Tivicay however did mention he do occasionally misses medication, patient presenting to the ER on 10/23/2021 for evaluation of chest pain which has been mostly in the left side of the chest and some radiation to the left arm describing to be more of a sharp in nature almost 7 out of 10 no radiation did have some shortness of breath with it patient on presentation to the hospital was afebrile he did have elevated white count of 13.3 which has subsequently normalized kidney function has been normal liver en zymes are normal urine has been negative patient is status post cardiac cath with evidence of multivessel disease and CT surgery has been consulted, infectious disease was consulted because of his HIV status and management Past Medical History Past Medical History: COPD, GERD/Reflux, Hypertension, Osteoarthritis (OA) Additional Past Medical History / Comment(s): HIV/AIDS(1990) back pain, neuropathy,sleep apnea History of Any Multi-Drug Resistant Organisms: None Reported Additional Past Surgical History / Comment(s): neck surgery, throat surgery Past Anesthesia/Blood Transfusion Reactions: No Reported Reaction Past Psychological History: Bipolar, Depression, Panic Disorder Additional Psychological History / Comment(s): Pt resides alone in an apartment. He uses a walker to ambulate. He is disabled. He drives. Smoking Status: Current every day smoker Past Alcohol Use History: Occasional Additional Past Alcohol Use History / Comment(s): Pt started smoking in 1976 and is about a ppd smoker. He occasionally drinks alcohol-black [employer] radha. Past Drug Use History: None Reported - Past Family History Brother(s) Family Medical History: Diabetes Mellitus Father Family Medical History: Cancer Additional Family Medical History / Comment(s): Father of throat cancer. Mother Additional Family Medical History / Comment(s): Mother of a ruptured brain aneurysm. Medications and Allergies Home Medications Medication Instructions Recorded Confirmed Type Quinapril HCl [Accupril] 10 mg PO DAILY 05/31/16 10/23/21 History Emtricitabine/Tenofov Alafenam 1 tab PO HS 09/01/18 10/23/21 History [Descovy 200-25 mg Tablet] Levothyroxine Sodium [Synthroid] 25 mcg PO DAILY 09/01/18 10/23/21 History traZODone HCL 150 mg PO HS 09/01/18 10/23/21 History Citalopram Hydrobromide [CeleXA] 40 mg PO DAILY 03/31/19 10/23/21 History Diltiazem HCl [Diltiazem HCl 24Hr 360 mg PO DAILY 03/31/19 10/23/21 History ER] Intelence 200mg 200 mg PO BID 03/31/19 10/23/21 History Baclofen [Lioresal] 20 mg PO QID 11/22/20 10/23/21 History Cetirizine HCl [Zyrtec] 10 mg PO DAILY 11/22/20 10/23/21 History Gabapentin 800 mg PO TID 11/22/20 10/23/21 History Triamterene/Hydrochlorothiazid 1 tab PO DAILY 11/22/20 10/23/21 History [Triamterene-Hctz 37.5-25 mg Tb] Morphine Sulfate Ir [MSIR] 15 mg PO QID 05/10/21 10/23/21 History Dolutegravir Sodium [Tivicay] 50 mg PO HS 08/14/21 10/23/21 History Ipratropium [place] 0.06%Nasal 2 spray EA NOSTRIL BID 08/14/21 10/23/21 History [Atrovent Nasal 0.06%] Mupirocin 2% Oint [Bactroban 2% 1 applic TOPICAL BID PRN 08/14/21 10/23/21 Hist ory Oint] Cephalexin [Keflex] 500 mg PO Q6H 10/23/21 10/23/21 History Docusate Sodium [Dok] 100 mg PO DAILY 10/23/21 10/23/21 History Phentermine HCl [Adipex-P] 37.5 mg PO DAILY 10/23/21 10/23/21 History buPROPion XL [Wellbutrin XL] 300 mg PO DAILY 10/23/21 10/23/21 History Allergies Allergy/AdvReac Type Severity Reaction Status Date / Time azithromycin Allergy Rash/Hives Verified 10/23/21 19:15 [From Zithromax Z-Simone] Sulfa (Sulfonamide Allergy Rash/Hives Verified 10/23/21 19:15 Antibiotics) Physical Exam Vitals: Vital Signs Temp Pulse Pulse Resp BP Pulse Ox 10/25/21 04:00 98.4 F 71 18 112/56 91 L 10/25/21 00:00 98.1 F 79 18 97/52 86 L 10/24/21 23:00 92 L 10/24/21 20:00 97.8 F 92 92 18 110/66 93 L 10/24/21 16:00 97.6 F 90 18 107/68 92 L 10/24/21 13:58 72 16 Intake and Output 10/24/21 10/25/21 10/25/21 22:59 06:59 14:59 Intake Total 0 77.167 83.105 Output Total 500 1425 Balance -500 -1347.833 83.105 Intake: Intake, IV Titration 0 77.167 83.105 Amount Heparin Sod,Pork in 0.45% 0 77.167 83.105 NaCl 25,000 unit In 0.45 % NaCl 1 250ml.bag @ 8. 8185 UNITS/KG/HR 10 mls/ hr IV .Q24H [facility] Rx#: [id number] Output: Urine 500 1425 Other: Voiding Method Urinal # Voids 1 1 Weight 110.2 kg Results CBC & Chem 7: 10/25/21 09:24 10/25/21 09:24 Labs: Abnormal Lab Results - Last 24 Hours (Table) 10/24/21 10/24/21 10/24/21 Range/Units 12:25 12:25 12:25 WBC 10.9 H (3.8-10.6) k/uL RBC 6.13 H (4.30-5.90) m/uL Hgb 17.6 H (13.0-17.5) gm/dL Hct 55.6 H (39.0-53.0) % Neutrophils # (1.3-7.7) k/uL APTT (22.0-30.0) sec Sodium 135 L (137-145) mmol/L Glucose 100 H (74-99) mg/dL Hemoglobin A1c 6.2 H (0.0-6.0) % 10/24/21 10/25/21 10/25/21 Range/Units 15:01 09:24 09:24 WBC (3.8-10.6) k/uL RBC (4.30-5.90) m/uL Hgb (13.0-17.5) gm/dL Hct (39.0-53.0) % Neutrophils # 8.0 H (1.3-7.7) k/uL APTT 20.3 L 30.1 H (22.0-30.0) sec Sodium (137-145) mmol/L Glucose (74-99) mg/dL Hemoglobin A1c (0.0-6.0) % 10/25/21 Range/Units 09:24 WBC (3.8-10.6) k/uL RBC (4.30-5.90) m/uL Hgb (13.0-17.5) gm/dL Hct (39.0-53.0) % Neutrophils # (1.3-7.7) k/uL APTT (22.0-30.0) sec Sodium (137-145) mmol/L Glucose 104 H (74-99) mg/dL Hemoglobin A1c (0.0-6.0) % Assessment and Plan Plan: 1patient with HIV for many years for the patient has been following in [facility] with an ID physician however has not seen a physician in more than 18 months now and the patient mention did not have any blood work done, patient a dmitted to hospital with chest pain and has been diagnosed with multivessel disease. 2we will try to obtain his genotype and will check CD4 count and viral load. 3follow-up continue with the [facility]. We will follow on clinical condition and cultures to further adjust medication if needed Thank you for this consultation will follow this patient along with you Time with Patient: Greater than 30
[2021-10-26] MEDS: MORPHINE SULFATE IR 15 MG TABLET PO SCH ×5 (03:54→21:07)
[2021-10-26 04:57] LABS: Glucose,Whole Blood 114 mg/dL (75-99)
[2021-10-26] MEDS: LEVOTHYROXINE 25 MCG TAB PO SCH (05:44)
[2021-10-26] MEDS ORDERED: ATORVASTATIN 80 MG TAB PO STA (08:51)
[2021-10-26] MEDS ORDERED: ASPIRIN 325 MG TAB PO STA (08:51)
[2021-10-26] MEDS: ASPIRIN 81 MG PO SCH (08:57)
[2021-10-26] MEDS: CLOPIDOGREL 75 MG TAB PO SCH (09:03)
[2021-10-26] MEDS ORDERED: IV FLUID CONTINUATION 700 ML IV ONE (09:43)
[2021-10-26] MEDS ORDERED: fentaNYL (PF) 50 MCG/ML 2 ML AMP ONE ×2 (09:45→10:54)
[2021-10-26] MEDS ORDERED: MIDAZOLAM 2 MG/2 ML VIAL IV ONE ×2 (09:48)
[2021-10-26] MEDS: fentaNYL (PF) 50 MCG/ML 2 ML AMP IV ONE ×2 (09:48→10:40)
--- NOTE | 2021-10-26 10:03 | P.PN ---
Progress Note - Text Patient's case discussed with surgeons. Patient was felt to be very high surgical risk given multiple medical morbidities as well as pulmonary function status. Discussed findings with patient and options including high risk PCI with Impella protected PCI of the left main. Risks and benefits discussed and patient is agreeable to PCI. PCI to be performed today. Further recommendations to follow.
[2021-10-26] MEDS ORDERED: LIDOCAINE 1% INJ 10MG/ML (30 ML VIAL-PF) SQ ONE ×3 (10:16→10:31)
[2021-10-26] MEDS: NITROGLYCERIN-D5W PMX 50 MG in DEXTROSE/WATER 1 250ML.BAG IV SCH (10:32)
[2021-10-26] MEDS ORDERED: KETAMINE 10 MG/ML 20 ML VIAL ONE (10:54)
[2021-10-26] MEDS ORDERED: MIDAZOLAM 2 MG/2 ML VIAL ONE (10:54)
[2021-10-26] MEDS ORDERED: HYDROmorphone (PF) 1 MG/ML ONE (10:54)
[2021-10-26] MEDS ORDERED: PROTAMINE SULFATE 10 MG/ML 5 ML VIAL IV ONE (10:54)
[2021-10-26] MEDS ORDERED: SODIUM CHLORIDE 0.9% 1,000 ML IV ONE (11:00)
[2021-10-26] MEDS ORDERED: HEPARIN SODIUM 1,000 UN/ML (10ML VL) ONE (11:12)
[2021-10-26] MEDS: HEPARIN SODIUM 1,000 UN/ML (10ML VL) IV ONE ×4 (11:13→11:56)
[2021-10-26] MEDS ORDERED: IOPAMIDOL-370 125ML BTL INJ ONE (12:36)
[2021-10-26] MEDS ORDERED: VERAPAMIL 2.5 MG/ML 2 ML AMP ONE (13:35)
[2021-10-26] MEDS ORDERED: VERAPAMIL SYRINGE (5 MG/10 ML) INTRAARTER ONE (13:37)
--- NOTE | 2021-10-26 13:56 | P.PN ---
Subjective Progress Note Date: 10/26/21 Jack Luna, is a 61-year-old male who presented to [facility] emergency room with a chief complaint of chest pain He was evaluated in the emergency room vital examination on presentation r evealed a temperature of 98 pulse 94 respiration 20 blood pressure 143/91 pulse ox 94% on room air Laboratory data revealed a white blood count of 13.3 IMO globin 16.5 platelet count 258 sodium 131 potassium 4.2 chloride 96 CO2 28 BUN 17 creatinine 0.98 troponin level was 0.0-4 Testing in the emergency room revealed EKG done in the emergency room revealed sinus rhythm with first-degree AV block and incomplete right bundle branch block, chest x-ray done in the emergency room revealed evidence of cardiomegaly otherwise no abnormality seen. Patient was admitted to medical floor for further evaluation and treatment, cardiology consultation was requested. Past medical history is significant for history of hypertension, history of COPD, history of osteoarthritis, history of HIV AIDS syndrome diagnosed in 1990 maintained on medications through infectious disease in [place], history of peripheral neuropathy, history of obstructive sleep apnea, history of degenerative disc disease, history of bipolar disorder, history of recurrent bilateral lower extremity cellulitis and history of tobacco use On 10/25/2021 patient is alert and oriented 3. Patient is status post cardiac catheterization which patient was found to have multivessel disease including 85% distal left main stenosis, proximal LAD 20-30% stenosis proximal circumflex 40-55% stenosis and 100% RCA stenosis with uidf-ax-duokn collaterals. Patient was evaluated by cardiothoracic surgery but appears that the plan at this time i s to proceed with catheterization and stent. Patient remains on IV heparin drip. At this time patient denies chest pain or shortness of breath. Patient denies nausea vomiting or diarrhea. Patient denies any urinary burning or frequency. On 10/26/2021 patient was seen and examined in the ICU he is alert and oriented in no apparent distress, last night he had episodes of worsening shortness of breath, he was transferred to intensive care unit, pulmonary consultation was requested, this morning he was evaluated by cardiology, and decision was made to proceed with high risk PCI Impella protected, input from Dr. Agudelo infectious disease reviewed will continue to follow closely Objective - Vital Signs Vital signs: Vital Signs Temp 98.7 F 10/26/21 03:14 Pulse 77 10/26/21 08:19 Resp 15 10/26/21 08:30 BP 119/68 10/26/21 08:19 Pulse Ox 94 L 10/26/21 08:30 FiO2 Intake & Output 10/25/21 10/26/21 10/26/21 18:59 06:59 18:59 Intake Total 957.425 650 Balance 957.425 650 Weight 110.2 kg Intake: IV 650 Intake, IV Titration 237.425 Amount Heparin Sod,Pork in 0.45% 193.000 NaCl 25,000 unit In 0.45 % NaCl 1 250ml.bag @ 8. 8185 UNITS/KG/HR 10 mls/ hr IV .Q24H [facility] Rx#: [id number] Nitroglycerin-D5w Pmx 50 44.425 mg In Dextrose/Water 1 250ml.bag @ 5 MCG/MIN 1.5 mls/hr IV .Q24H [facility] Rx#: [id number] Oral 720 Other: Voiding Method Urinal Toilet Urinal Urinal - Exam In general patient is alert and oriented x 3 in no distress HEENT head normocephalic and atraumatic Neck is supple no JVD no goiter no lymphadenopathy no carotid bruit Chest examination is clear to auscultation no crackles no wheezing Cardiac exam reveals regular heart sounds S1 and S2 no gallops no murmurs Abdomen is soft nontender no organomegaly with normal bowel sounds Extremity exam reveals no edema no cyanosis or clubbing Neurological examination reveals no gross focal deficits - Labs CBC & Chem 7: 10/25/21 09:24 10/25/21 09:24 Labs: Abnormal Lab Results - Last 24 Hours (Table) 10/25/21 10/26/21 Range/Units 17:05 04:53 APTT 53.5 H (22.0-30.0) sec POC Glucose (mg/dL) 114 H (75-99) mg/dL Assessment and Plan Plan: Coronary artery disease with multivessel involvement. Post catheterization which was found to have left main stenosis of 85%, proximal RCA stenosis 100%, proximal LAD 20-30% stenosis patient was evaluated cardiothoracic surgery. Tentative plans for cardiac catheterization with stent placement Underlying history of hypertension Underlying history of COPD Underlying history of HIV AIDS syndrome Underlying history of osteoarthritis Underlying history of degenerative disc disease Underlying history of bipolar disorder Underlying history of anxiety with panic disorder Underlying history of continued tobacco use Patient remains on IV heparin drip Patient remains on IV Lasix Cardiology and cardiothoracic surgery are following Tentative plans for repeat cardiac catheterization with stent placement Labs have been ordered
[2021-10-26] MEDS ORDERED: IOPAMIDOL-370 100ML BTL INJ ONE (14:00)
[2021-10-26 15:13] LABS: Glucose,Whole Blood 88 mg/dL (75-99)
[2021-10-26] MEDS: BACLOFEN 10 MG TAB PO SCH ×4 (15:31→21:06)
[2021-10-26] MEDS: SODIUM CHLORIDE 0.9% 1,000 ML IV SCH (15:31)
[2021-10-26] MEDS: CITALOPRAM HYDROBROMIDE 20 MG TAB PO SCH (15:31)
[2021-10-26] MEDS: buPROPion XL 300 MG TAB.ER.24H PO SCH (15:31)
[2021-10-26] MEDS: DOCUSATE 100 MG CAP PO SCH (15:32)
[2021-10-26] MEDS: DILTIAZEM CD 180 MG CAP.ER.24H PO SCH (15:32)
[2021-10-26] MEDS: GABAPENTIN 400 MG CAP PO SCH ×3 (15:32→21:06)
[2021-10-26] MEDS: INTELENCE 200 MG PO SCH ×2 (15:32→22:29)
[2021-10-26] MEDS: IPRATROPIUM BROMIDE 0.06% NASAL SPRAY (15 ML) EA NOSTRIL SCH ×2 (15:32→22:28)
[2021-10-26] MEDS: lisinopriL 10 MG TAB PO SCH (15:32)
[2021-10-26] MEDS: LORATADINE 10 MG TAB PO SCH (15:32)
[2021-10-26] MEDS: FUROSEMIDE 10 MG/ML 4 ML VIAL IV SCH (15:32)
[2021-10-26] MEDS: NON FORMULARY DRUG (Phentermine Hcl [Adipex-P] 37.5 MG Tablet) PO SCH (15:32)
[2021-10-26] MEDS: TRIAMTERENE-HCTZ 37.5-25MG 1 EACH TAB PO SCH (15:33)
[2021-10-26] MEDS: SODIUM CHLORIDE 0.9% 1,000 ML in EMPTY BAG 1 BAG IV SCH ×2 (15:33→17:50)
--- NOTE | 2021-10-26 15:38 | P.CNPUL ---
History of Present Illness Consult date: 10/26/21 Requesting physician: Daniela Rojo Reason for consult: other (Critical care management) Chief complaint: chest pain History of present illness: This is a 61-year-old male patient with a history of hypertension, anxiety/depression, gastroesophageal reflux disease, hypothyroidism, chronic obstructive pulmonary disease with chronic and ongoing tobacco dependence and HIV diagnosed in 1990. he presented here to the emergency room on 10/23/2021 with complaints of chest pain. On October 24 he had undergone cardiac catheterization that revealed 85% distal left main stenosis, proximal LAD 20-37% stenosis, proximal circumflex 40-50% stenosis and 100% RCA stenosis with left to right collaterals. Echocardiogram revealed preserved left ventricular systolic function with ejection fraction of 55%. Mild mitral regurgitation. FEV1 value 1.33 L or 48% of predicted. He was seen and evaluated by cardiothoracic surgery who considered the patient very high risk for surgical revascularization. Today the patient was taken back to the [facility] to undergo Impella protected PCI of the left main. He is seen in consultation in the ICU shortly upon return from the [facility]. He is somewhat sedated. Maintaining O2 saturations in the 90s on 6L simple mask. He does have a FemStop to the left groin, peripheral pulses are palpable. Currently in sinus rhythm. Review of Systems REVIEW OF SYSTEMS: CONSTITUTIONAL: Denies any recent significant weight loss or weight gain. EYES: Denies change in vision. EARS, NOSE, MOUTH, THROAT: Denies headaches, denies sore throat. CARDIOVASCULAR: Positive for chest pain, no palpitations or syncopal episodes. RESPIRATORY: Denies shortness of breath, cough, congestion or hemoptysis. GASTROINTESTINAL: Denies change in appetite, denies abdominal pain GENITOURINARY: Denies hematuria, denies infections. MUSKULOSKELETAL: Denies pain, denies swelling. INTEGUMENTARY: Denies rash, denies eczema. NEUROLOGICAL: Denies recent memory loss, no recent seizure activity. PSYCHIATRIC: Denies anxiety, denies depression. HEMATOLOGIC/LYMPHATIC: Denies anemia, denies enlarged lymph nodes. Past Medical History Past Medical History: COPD, GERD/Reflux, Hypertension, Osteoarthritis (OA) Additional Past Medical History / Comment(s): HIV/AIDS(1990) back pain, neuropathy,sleep apnea History of Any Multi-Drug Resistant Organisms: None Reported Additional Past Surgical History / Comment(s): neck surgery, throat surgery Past Anesthesia/Blood Transfusion Reactions: No Reported Reaction Past Psychological History: Bipolar, Depression, Panic Disorder Additional Psychological History / Comment(s): Pt resides alone in an apartment. He uses a walker to ambulate. He is disabled. He drives. Smoking Status: Current every day smoker Past Alcohol Use History: Occasional Additional Past Alcohol Use History / Comment(s): Pt started smoking in 1976 and is about a ppd smoker. He occasionally drinks alcohol-[place]. Past Drug Use History: None Reported - Past Family History Brother(s) Family Medical History: Diabetes Mellitus Father Family Medical History: Cancer Additional Family Medical History / Comment(s): Father of throat cancer. Mother Additional Family Medical History / Comment(s): Mother of a ruptured brain aneurysm. Medications and Allergies Home Medications Medication Instructions Recorded Confirmed Type Quinapril HCl [Accupril] 10 mg PO DAILY 05/31/16 10/23/21 History Emtricitabine/Tenofov Alafenam 1 tab PO HS 09/01/18 10/23/21 History [Descovy 200-25 mg Tablet] Levothyroxine Sodium [Synthroid] 25 mcg PO DAILY 09/01/18 10/23/21 History traZODone HCL 150 mg PO HS 09/01/18 10/23/21 History Citalopram Hydrobromide [CeleXA] 40 mg PO DAILY 03/31/19 10/23/21 History Diltiazem HCl [Diltiazem HCl 24Hr 360 mg PO DAILY 03/31/19 10/23/21 History ER] Intelence 200mg 200 mg PO BID 03/31/19 10/23/21 History Baclofen [Lioresal] 20 mg PO QID 11/22/20 10/23/21 History Cetirizine HCl [Zyrtec] 10 mg PO DAILY 11/22/20 10/23/21 History Gabapentin 800 mg PO TID 11/22/20 10/23/21 History Triamterene/Hydrochlorothiazid 1 tab PO DAILY 11/22/20 10/23/21 History [Triamterene-Hctz 37.5-25 mg Tb] Morphine Sulfate Ir [MSIR] 15 mg PO QID 05/10/21 10/23/21 History Dolutegravir Sodium [Tivicay] 50 mg PO HS 08/14/21 10/23/21 History Ipratropium [place] 0.06%Nasal 2 spray EA NOSTRIL BID 08/14/21 10/23/21 History [Atrovent Nasal 0.06%] Mupirocin 2% Oint [Bactroban 2% 1 applic TOPICAL BID PRN 08/14/21 10/23/21 History Oint] Cephalexin [Keflex] 500 mg PO Q6H 10/23/21 10/23/21 History Docusate Sodium [Dok] 100 mg PO DAILY 10/23/21 10/23/21 History Phentermine HCl [Adipex-P] 37.5 mg PO DAILY 10/23/21 10/23/21 History buPROPion XL [Wellbutrin XL] 300 mg PO DAILY 10/23/21 10/23/21 History Allergies Allergy/AdvReac Type Severity Reaction Status Date / Time azithromycin Allergy Rash/Hives Verified 10/23/21 19:15 [From Zithromax Z-Simone] Sulfa (Sulfonamide Allergy Rash/Hives Verified 10/23/21 19:15 Antibiotics) Physical Exam Vitals: Vital Signs Temp Pulse Pulse Resp BP Pulse Ox 10/26/21 08:30 15 94 L 10/26/21 08:19 77 119/68 94 L 10/26/21 08:00 77 24 10/26/21 03:14 98.7 F 83 18 101/62 93 L 10/26/21 02:00 98.7 F 83 18 101/62 93 L 10/26/21 00:00 98.1 F 87 18 95/54 90 L 10/25/21 23:00 89 L 10/25/21 20:00 97.8 F 82 82 20 101/68 89 L 10/25/21 16:00 97.6 F 88 18 113/70 92 L Intake and Output 10/26/21 10/26/21 10/26/21 06:59 14:59 22:59 Intake Total 650 Balance 650 Intake: IV 650 Other: Voiding Method Urinal Weight 110.2 kg GENERAL EXAM: Sedate, 61-year-old male patient, comfortable in no apparent distress. HEAD: Normocephalic. EYES: Normal reaction of pupils, equal size. NOSE: Clear with pink turbinates. THROAT: No erythema or exudates. NECK: No masses, no JVD. CHEST: No chest wall deformity. LUNGS: Equal air entry with no crackles, wheeze, rhonchi or dullness. CVS: S1 and S2 normal with no audible murmur, regular rhythm. ABDOMEN: No hepatosplenomegaly, normal bowel sounds, no guarding or rigidity. SPINE: No scoliosis or deformity SKIN: No rashes CENTRAL NERVOUS SYSTEM: No focal deficits, tone is normal in all 4 extremities. EXTREMITIES: Left FemoStop in place.There is no peripheral edema. No clubbing, no cyanosis. Peripheral pulses are intact. Results - Laboratory Findings CBC and BMP: 10/25/21 09:24 10/25/21 09:24 PT/INR, D-dimer PT 10.5 sec (9.0-12.0) 10/23/21 19:18 INR 1.0 (<1.2) 10/23/21 19:18 Abnormal lab findings: Abnormal Labs 10/23/21 10/23/21 10/24/21 19:18 19:18 12:25 WBC 13.3 H 10.9 H RBC 6.13 H Hgb 17.6 H Hct 55.6 H Neutrophils # 9.4 H APTT Sodium 131 L Chloride 96 L Glucose 101 H POC Glucose (mg/dL) Hemoglobin A1c 10/24/21 10/24/21 10/24/21 12:25 12:25 15:01 WBC RBC Hgb Hct Neutrophils # APTT 20.3 L Sodium 135 L Chloride Glucose 100 H POC Glucose (mg/dL) Hemoglobin A1c 6.2 H 10/25/21 10/25/21 10/25/21 09:24 09:24 09:24 WBC RBC Hgb Hct Neutrophils # 8.0 H APTT 30.1 H Sodium Chloride Glucose 104 H POC Glucose (mg/dL) Hemoglobin A1c 10/25/21 10/26/21 17:05 04:53 WBC RBC Hgb Hct Neutrophils # APTT 53.5 H Sodium Chloride Glucose POC Glucose (mg/dL) 114 H Hemoglobin A1c - Diagnostic Findings Chest x-ray: image reviewed Assessment and Plan Assessment: Coronary artery disease including left main stenosis. Status post Impella protected PCI. Detailed report pending. Chronic and ongoing tobacco dependence Chronic obstructive pulmonary disease with an FEV1 value 1.33 L or 48% of predicted History of HIV History of anxiety/depression History of hypertension Hypothyroidism Obesity Plan: The patient was seen and evaluated Chest x-ray, labs and medications reviewed Titrate the FiO2 as tolerated Educate regarding the importance of complete smoking cessation Continue to monitor closely in the ICU We will continue to follow and make further recommendations based on his clinical status I have personally seen and examined the patient, performed the documentation and the assessment and plan as written. Number of minutes spent on the visit: 20.
[2021-10-26] MEDS: MORPHINE SULFATE 4 MG/ML SYRINGE IVP PRN ×2 (15:46→20:31)
[2021-10-26 16:45] LABS: Basophils # (A) 0.1 k/uL (0-0.2); Basophils % (A) 1 %; Eosinophils # (A) 0.2 k/uL (0-0.7); Eosinophils % (A) 2 %; HCT 48.4 % (39.0-53.0); HGB 14.9 gm/dL (13.0-17.5); Lymphocytes # (A) 1.6 k/uL (1.0-4.8); Lymphocytes % (A) 12 %; MCH 28.2 pg (25.0-35.0); MCHC 30.8 g/dL (31.0-37.0); MCV 91.5 fL (80.0-100.0); Monocytes # (A) 0.8 k/uL (0-1.0); Monocytes % (A) 6 %; Neutrophils # (A) 10.4 k/uL (1.3-7.7); Neutrophils % (A) 78 %; Platelet Count 211 k/uL (150-450); RBC 5.29 m/uL (4.30-5.90); RDW 13.1 % (11.5-15.5); WBC 13.4 k/uL (3.8-10.6)
[2021-10-26 16:55] LABS: ALT 27 U/L (4-49); African American GFR (CKD) >90 (>60 ml/min/1.73 sqM); Albumin 3.7 g/dL (3.5-5.0); Anion Gap 5 mmol/L; Blood Urea Nitrogen 17 mg/dL (9-20); Calcium 8.8 mg/dL (8.4-10.2); Carbon Dioxide 26 mmol/L (22-30); Chloride 102 mmol/L (98-107); Glucose 87 mg/dL (74-99); Non-African American GFR(CKD) 81 (>60 ml/min/1.73 sqM); Sodium 133 mmol/L (137-145); Total Bilirubin 0.9 mg/dL (0.2-1.3); Total Protein 6.4 g/dL (6.3-8.2)
[2021-10-26 16:58] LABS: AST 53 U/L (17-59); Potassium 4.1 mmol/L (3.5-5.1)
[2021-10-26 16:59] LABS: Alkaline Phosphatase 54 U/L (38-126)
[2021-10-26] MEDS ORDERED: ATROPINE SULFATE 0.1 MG/ML 10ML SYRINGE IV PRN (19:15)
[2021-10-26] MEDS ORDERED: NITROGLYCERIN SL TABS 0.4 MG TAB SUBLINGUAL PRN (19:15)
[2021-10-26] MEDS ORDERED: RX INFO: IV CONTRAST WAS GIVEN 1 EACH MISC MISCELLANE PRN (19:15)
[2021-10-26] MEDS ORDERED: MAG HYDROX/AL HYDROX/SIMETH 30 ML CUP PO PRN (19:15)
[2021-10-26] MEDS ORDERED: ZOLPIDEM 5 MG TAB PO PRN (19:15)
[2021-10-26] MEDS: METOPROLOL SUCCINATE (ER) 25 MG TAB.ER.24H PO SCH (21:06)
[2021-10-26] MEDS: ATORVASTATIN 40 MG TAB PO SCH (21:07)
--- NOTE | 2021-10-26 21:35 | P.PRCINT ---
Percutaneous Coronary Int. - Percutaneous Coronary Intervention Percutaneous Coronary Intervention: PROCEDURES PERFORMED: Left coronary angiography, PCI distal left main with a 5.0 x 12mm Xience KAYLIN with Impella CP support, balloon angioplasty circumflex with a 2.5 x 12mm balloon, rotational atherectomy left main, balloon tamponade of left femoral access site secondary to failed Perclose, IVUS left main INDICATION: Unstable angina, left main 85% stenosis felt to be very high risk for CABG CONSENT:I have discussed the risks, benefits and alternative therapies for the above-mentioned procedure and for both sedation/analgesia as well as necessary blood product administration, if indicated, as they pertain to this patient. The patient has indicated understanding and acceptance of the risks and procedures discussed. PROCEDURE: After the risks, benefits and alternatives of the above mentioned procedure explained in detail with the patient, informed consent was obtained. Patient was deemed to be high risk for surgery and therefore discussed options of complex high risk PCI with Impella support and patient was agreeable. Patient was taken to the catheterization lab and prepped and draped in usual fashion. 1% lidocaine was used to anesthetize the right femoral area. Patient had severe issues extending his hips despite anesthesia helping with sedation and high degrees of sedation with fluoroscopy showing severe arthritis. This created difficulty obtaining access in the right femoral artery. The right femoral artery appeared to dive somewhat deeper at the level of the common femoral artery under ultrasound. We accessed the right femoral artery using ultrasound guidance and micropuncture however angiography was micropuncture showed access in the SFA and therefore the micropuncture was removed and pressure was held. The right femoral artery did not appear to be ideal and therefore changed to left femoral approach. Using ultrasound guidance and micropuncture, a 6FR sheath was placed. 2 preclose Percloses were placed at the 10 Oclock and 2 Oclock position. Next, an 8Fr sheath was placed and the stiff 0.035 Impella wire was advanced. Over this wire, a 14Fr long Impella sheath was placed. Next a 6Fr pigtail catheter was advanced into the LV and the pigtail was exchanged for the Impella CP device over a 0.018 wire. Heparin had been given for ACT > 250. The Impella CP was turned on. Single access was performed by puncturing the Impella sheath with a micropuncture and exchanging for a 6Fr sheath. Next a 6Fr CLS 3.5 guide was used to engage the left main. A 0.014 Viper wire was advanced into the distal LAD. Rotational atherectomy was performed of the left main into the LAD with the CSI device for 3 runs at low speed and 3 runs at high speed. Next balloon angioplasty was performed of the left main with a 4.0 x 12mm NC balloon. Next IVUS of the left main into the LAD was performed which showed a reference proximal left main of 5.0 x 5.5mm. There was diffuse mild to moderate proximal LAD 30-40% stenosis noted on IVUS however decision was made to perform T mitzy nting of the left main. Therefore a 5.0 x 12mm Xience KAYLIN was placed in the left main in T stenting fashion. There was increased radiation noted secondary to extreme angles noted to open up bifurcation, body habitus. Repeat IVUS was performed which showed excellent stent apposition, at 5.0 mm, no dissection. There was some plaque shifting into the ostium of the circumflex producing a 80% stenosis however on IVUS it did not appear the stent struts covered any of the circumflex ostium. Therefore a 90 degree microcatheter and a Filder XT wire were used to wire into the circumflex with some difficulty given extreme angulation. Next balloon angioplasty was performed of the ostium of the circumflex with a 2.5 x 12mm balloon. Preintervention there was 85-90% left main stenosis with HORACE 3 flow. Post intervention there was HORACE 3 flow, 0% stenosis and no dissection. Pre balloon angioplasty of the left circumflex, there was HORACE 3 flow and 80% stenosis and post intervention there was < 30% stenosis and HORACE 3 flow. The wires were removed and final angiograms were performed. The Impella was decreased and removed from the LV then turned off and removed from the sheath. Next the 6Fr sheath was removed from the Impella sheath. The Impella sheath was removed with manual pressure while Perclose was deployed. One of the 2 percloses was not able to be advanced onto the arteriotomy despite a number of attempts, and when cutting the second Perclose, this became dislodged. We attempted to advance an 8Fr Angioseal however this did not provide adequate seal with still significant bleeding and therefore this was not deployed. Instead a 3rd Perclose was attempted to be advanced and deployed while keeping a second 0.035 wire in position. This also failed with vessel appearing to have calcified plaque preventing adequate Perclose. Therefore the 14Fr sheath was reinserted temporarily and the decision was made to perform a balloon tamponade. Therefore the right radial site was prepped and 1% Lidocaine was injected in the right radial site. A 6Fr sheath was placed in the right radial artery. A stiff glide wire in a FR 4 was advanced into the right iliac artery. The iliac artery was occlusive with the [address] and therefore required briefly removing the 14Fr sheath and advancing the 0.035 stiff glide into the distal SFA. Next balloon tamponade of the left femoral artery was performed with a 8.0 x 80mm balloon after the 14Fr sheath was performed for approximately 20 mins. Angiography was performed through the balloon showing hemostatsis achieved and uninhibited flow with no dissection. The balloon was removed. The right radial sheath was removed and a TR band was placed with hemostasis achieved. The patient tolerated the procedure well. Approximately 300cc of blood loss throughout the procedure. Patient was transported back to the post catheterization holding area in stable condition. Conscious Sedation: was supplied by anesthesia secondary to patient being unable to be positioned appropriately during diagnsotic procedure. HEMODYNAMICS: Ao: 123/105 SELECTIVE CORONARY ARTERIOGRAPHY: LEFT MAIN: The left main is a large caliber vessel which bifurcates into the LAD and circumflex. There is a distal left main 85-90% stenosis. LEFT ANTERIOR DESCENDING CORONARY ARTERY: LAD is a large caliber vessel which wraps around to the apex. There is proximal LAD 30% stenosis and otherwise mild luminal irregularities. There are [id number] collaterals. LEFT CIRCUMFLEX CORONARY ARTERY: Left circumflex is a moderate caliber vessel. There is proximal circumflex 40-50% stenosis. The circumflex gives off a high OM 1 without significant stenosis and then the circumflex gives off a small to moderate caliber OM 2 with more proximal circumflex 40-50% stenosis just after OM1. RIGHT CORONARY ARTERY: The right coronary artery was not imaged however known to be 100% proximal RCA stenosis. FINAL IMPRESSION: 1. CAD as described above including 85-90% distal left main stenosis, s/p complex high risk, Impella CP protected, rotational atherectomy, PCI of left main with 5.0 x 12mm Xience KAYLIN with balloon angioplasty circumflex with 2.5 x 12mm balloon 2. Known residual 100% RCA stenosis PLAN: 1. Aggressive risk factor modification per most recent ACC/AHA guidelines. 2. Continue dual antiplatelets for 12 months with aspirin and Plavix. 3. May consider TOP LIFT COMPRESSOR PCI RCA pending patient's clinical course.
[2021-10-26] MEDS: Emtricitabine/Tenofov Alafenam [Descovy 200-25 Mg Tablet] PO SCH (22:27)
[2021-10-26] MEDS: traZODone HCL 50 MG TAB PO SCH (22:27)
[2021-10-27] MEDS: MORPHINE SULFATE 4 MG/ML SYRINGE IVP PRN ×2 (04:21→11:24)
[2021-10-27] MEDS: SODIUM CHLORIDE 0.9% 1,000 ML IV SCH (04:21)
[2021-10-27] MEDS: LEVOTHYROXINE 25 MCG TAB PO SCH (06:03)
[2021-10-27] MEDS: ACETAMINOPHEN TAB 325 MG TAB PO PRN (06:33)
--- NOTE | 2021-10-27 06:45 | XR ---
EXAMINATION TYPE: XR chest 1V portable DATE OF EXAM: 10/27/2021 COMPARISON: 11/11/2021 HISTORY: Chest pain TECHNIQUE: Single frontal view of the chest is obtained. FINDINGS: There is been interval development of small right pleural effusion and a small focal opaci ty in the left costophrenic angle. There are diffuse mild interstitial densities which appear to be likely chronic in nature. The heart size is normal. There is no pneumothorax. The osseous structures are intact. IMPRESSION: Findings consistent with interval development of acute cardiopulmonary disease with a small right ple ural effusion and left lower lobe infiltrate. IMPRESSION: No acute process.
[2021-10-27 06:48] LABS: Basophils % (A) 0 %; Eosinophils # (A) 0.2 k/uL (0-0.7); Eosinophils % (A) 1 %; HCT 44.5 % (39.0-53.0); HGB 14.4 gm/dL (13.0-17.5); Lymphocytes # (A) 1.1 k/uL (1.0-4.8); Lymphocytes % (A) 9 %; MCH 29.3 pg (25.0-35.0); MCHC 32.3 g/dL (31.0-37.0); MCV 90.8 fL (80.0-100.0); Mean Platelet Volume 6.8; Monocytes # (A) 0.9 k/uL (0-1.0); Monocytes % (A) 7 %; Neutrophils # (A) 9.7 k/uL (1.3-7.7); Neutrophils % (A) 80 %; Platelet Count 229 k/uL (150-450); RDW 13.7 % (11.5-15.5); WBC 12.2 k/uL (3.8-10.6)
[2021-10-27 06:56] LABS: ALT 34 U/L (4-49); AST 89 U/L (17-59); African American GFR (CKD) >90 (>60 ml/min/1.73 sqM); Albumin 3.4 g/dL (3.5-5.0); Alkaline Phosphatase 51 U/L (38-126); Anion Gap 2 mmol/L; Blood Urea Nitrogen 13 mg/dL (9-20); Calcium 8.7 mg/dL (8.4-10.2); Carbon Dioxide 29 mmol/L (22-30); Chloride 102 mmol/L (98-107); Glucose 131 mg/dL (74-99); Non-African American GFR(CKD) 78 (>60 ml/min/1.73 sqM); Potassium 4.5 mmol/L (3.5-5.1); Sodium 133 mmol/L (137-145); Total Bilirubin 0.6 mg/dL (0.2-1.3); Total Protein 5.9 g/dL (6.3-8.2)
[2021-10-27] MEDS ORDERED: HEPARIN SODIUM,PORCINE 10,000 UNIT in SODIUM CHLORIDE 0.9% 1,000 ML IRRIGATION PRN (07:00)
[2021-10-27] MEDS ORDERED: HEPARIN SODIUM,PORCINE 2,500 UNIT in SODIUM CHLORIDE 0.9% 250 ML IRRIGATION PRN (07:00)
[2021-10-27] MEDS: TRIAMTERENE-HCTZ 37.5-25MG 1 EACH TAB PO SCH (08:17)
[2021-10-27] MEDS: METOPROLOL SUCCINATE (ER) 25 MG TAB.ER.24H PO SCH (08:17)
[2021-10-27] MEDS: LORATADINE 10 MG TAB PO SCH (08:17)
[2021-10-27] MEDS: ASPIRIN 81 MG PO SCH (08:17)
[2021-10-27] MEDS: CLOPIDOGREL 75 MG TAB PO SCH (08:17)
[2021-10-27] MEDS: DOCUSATE 100 MG CAP PO SCH (08:17)
[2021-10-27] MEDS: lisinopriL 10 MG TAB PO SCH (08:17)
[2021-10-27] MEDS: CITALOPRAM HYDROBROMIDE 20 MG TAB PO SCH (08:17)
[2021-10-27] MEDS: buPROPion XL 300 MG TAB.ER.24H PO SCH (08:18)
[2021-10-27] MEDS: GABAPENTIN 400 MG CAP PO SCH ×3 (08:18→20:57)
[2021-10-27] MEDS: FUROSEMIDE 10 MG/ML 4 ML VIAL IV SCH (08:18)
[2021-10-27] MEDS: BACLOFEN 10 MG TAB PO SCH ×4 (08:18→20:57)
[2021-10-27] MEDS: DILTIAZEM CD 180 MG CAP.ER.24H PO SCH (08:18)
[2021-10-27] MEDS: MORPHINE SULFATE IR 15 MG TABLET PO SCH ×4 (08:19→20:57)
[2021-10-27] MEDS: IPRATROPIUM BROMIDE 0.06% NASAL SPRAY (15 ML) EA NOSTRIL SCH ×2 (08:19→20:57)
[2021-10-27] MEDS: NON FORMULARY DRUG (Phentermine Hcl [Adipex-P] 37.5 MG Tablet) PO SCH (08:20)
[2021-10-27] MEDS: INTELENCE 200 MG PO SCH ×2 (08:39→20:58)
[2021-10-27] MEDS ORDERED: DEXTROSE 5% IN WATER 1,000 ML IV SCH (10:00)
--- NOTE | 2021-10-27 10:24 | P.PN ---
Subjective Progress Note Date: 10/27/21 Jack Luna, is a 61-year-old male who presented to [facility] emergency room with a chief complaint of chest pain He was evaluated in the emergency room vital examination on presentation r evealed a temperature of 98 pulse 94 respiration 20 blood pressure 143/91 pulse ox 94% on room air Laboratory data revealed a white blood count of 13.3 IMO globin 16.5 platelet count 258 sodium 131 potassium 4.2 chloride 96 CO2 28 BUN 17 creatinine 0.98 troponin level was 0.0-4 Testing in the emergency room revealed EKG done in the emergency room revealed sinus rhythm with first-degree AV block and incomplete right bundle branch block, chest x-ray done in the emergency room revealed evidence of cardiomegaly otherwise no abnormality seen. Patient was admitted to medical floor for further evaluation and treatment, cardiology consultation was requested. Past medical history is significant for history of hypertension, history of COPD, history of osteoarthritis, history of HIV AIDS syndrome diagnosed in 1990 maintained on medications through infectious disease in [place], history of peripheral neuropathy, history of obstructive sleep apnea, history of degenerative disc disease, history of bipolar disorder, history of recurrent bilateral lower extremity cellulitis and history of tobacco use On 10/25/2021 patient is alert and oriented 3. Patient is status post cardiac catheterization which patient was found to have multivessel disease including 85% distal left main stenosis, proximal LAD 20-30% stenosis proximal circumflex 40-55% stenosis and 100% RCA stenosis with [id number] collaterals. Patient was evaluated by cardiothoracic surgery but appears that the plan at this time i s to proceed with catheterization and stent. Patient remains on IV heparin drip. At this time patient denies chest pain or shortness of breath. Patient denies nausea vomiting or diarrhea. Patient denies any urinary burning or frequency. On 10/26/2021 patient was seen and examined in the ICU he is alert and oriented in no apparent distress, last night he had episodes of worsening shortness of breath, he was transferred to intensive care unit, pulmonary consultation was requested, this morning he was evaluated by cardiology, and decision was made to proceed with high risk PCI Impella protected, input from Dr. Agudelo infectious disease reviewed will continue to follow closely. On 10/27/2021 patient was seen and examined in the ICU he is alert and oriented 3 in no apparent distress he is sitting up in a chair he denies any new episodes of chest pain he is still having shortness of breath with any activity he is maintained on high flow oxygen at 12 L/m otherwise he denies any complain ts there is no fever or chills no headache or dizziness no chest pain no cough no nausea or vomiting no abdominal pain no diarrhea and no urinary symptoms. Chest x-ray today reveals left lower lobe infiltrate and right small pleural effusion. Objective - Vital Signs Vital signs: Vital Signs Temp 98 F 10/27/21 04:00 Pulse 90 10/27/21 07:00 Resp 13 10/27/21 07:00 BP 95/82 10/27/21 07:00 Pulse Ox 92 L 10/27/21 07:00 FiO2 50 10/27/21 00:25 Intake & Output 10/26/21 10/27/21 10/27/21 18:59 06:59 18:59 Intake Total 1675 680 20 Output Total 1435 915 45 Balance 240 -235 -25 Weight 110.2 kg 118.1 kg Intake: IV 1675 680 20 Sodium Chloride 0.9% 1, 225 680 20 000 ml In Empty Bag 1 bag @ 1 ML/KG/HR 110.2 mls/ hr IV .Q9H5M [facility] Rx#: [id number] Output: Urine 1435 915 45 Other: Voiding Method Indwelling Catheter Indwelling Catheter - Exam In general patient is alert and oriented x 3 in no distress HEENT head normocephalic and atraumatic Neck is supple no JVD no goiter no lymphadenopathy no carotid bruit Chest examination is clear to auscultation no crackles no wheezing Cardiac exam reveals regular heart sounds S1 and S2 no gallops no murmurs Abdomen is soft nontender no organomegaly with normal bowel sounds Extremity exam reveals no edema no cyanosis or clubbing Neurological examination reveals no gross focal deficits - Labs CBC & Chem 7: 10/27/21 05:56 10/27/21 05:56 Labs: Abnormal Lab Results - Last 24 Hours (Table) 10/26/21 10/26/21 10/27/21 Range/Units 16:20 16:20 05:56 WBC 13.4 H 12.2 H (3.8-10.6) k/uL MCHC 30.8 L (31.0-37.0) g/dL Neutrophils # 10.4 H 9.7 H (1.3-7.7) k/uL Sodium 133 L (137-145) mmol/L Glucose (74-99) mg/dL AST (17-59) U/L Total Protein (6.3-8.2) g/dL Albumin (3.5-5.0) g/dL 10/27/21 Range/Units 05:56 WBC (3.8-10.6) k/uL MCHC (31.0-37.0) g/dL Neutrophils # (1.3-7.7) k/uL Sodium 133 L (137-145) mmol/L Glucose 131 H (74-99) mg/dL AST 89 H (17-59) U/L Total Protein 5.9 L (6.3-8.2) g/dL Albumin 3.4 L (3.5-5.0) g/dL Assessment and Plan Plan: Coronary artery disease with multivessel involvement. Post catheterization which was found to have left main stenosis of 85%, proximal RCA stenosis 100%, proximal LAD 20-30% stenosis patient was evaluated cardiothoracic surgery. Patient underwent Impella protected, rotational atherectomy, of the left main yesterday Underlying history of hypertension Underlying history of COPD Underlying history of HIV AIDS syndrome Underlying history of osteoarthritis Underlying history of degenerative disc disease Underlying history of bipolar disorder Underlying history of anxiety with panic disorder Underlying history of continued tobacco use Patient remains on IV heparin drip Patient remains on IV Lasix Cardiology and cardiothoracic surgery are following Pulmonary critical care following Labs have been ordered
[2021-10-27] MEDS: NITROGLYCERIN-D5W PMX 50 MG in DEXTROSE/WATER 1 250ML.BAG IV SCH (11:03)
[2021-10-27] MEDS: SODIUM CHLORIDE 0.9% 500 ML 500 ML IV SCH (11:04)
--- NOTE | 2021-10-27 12:19 | P.PN ---
Subjective Progress Note Date: 10/27/21 This is a 61-year-old gentleman with history of HIV who was admitted to the hospital with chest pain and had a cardiac catheterization. He also has underlying pulmonary disease. He was felt to be a poor candidate for surgical intervention. Patient underwent stent placement of the left main with embolus support and also angioplasty of the circumflex done by Dr. Solomon. So far. Patient has been doing well. He sitting up in the chair. Denies any chest pain or shortness of breath. His groin on both sides seemed to be soft without any hematoma. He doesn't complain of any significant pains. Lungs show scattered rhonchi. Heart is regular. Patient could be moved to telemetry unit and increase activity as tolerated. He is on IV pro oxygen is also on IV Lasix. Objective - Vital Signs Vital signs: Vital Signs Temp 98.2 F 10/27/21 08:00 Pulse 76 10/27/21 11:00 Resp 16 10/27/21 11:00 BP 122/85 10/27/21 11:00 Pulse Ox 91 L 10/27/21 11:00 FiO2 50 10/27/21 00:25 Intake & Output 10/26/21 10/27/21 10/27/21 18:59 06:59 18:59 Intake Total 1675 680 158.875 Output Total 8885 234 8968 Balance 240 -235 -1386.125 Weight 110.2 kg 118.1 kg Intake: IV 1675 680 100 Sodium Chloride 0.9% 1, 225 680 100 000 ml In Empty Bag 1 bag @ 1 ML/KG/HR 110.2 mls/ hr IV .Q9H5M [facility] Rx#: [id number] Intake, IV Titration 58.875 Amount Nitroglycerin-D5w Pmx 50 58.875 mg In Dextrose/Water 1 250ml.bag @ 5 MCG/MIN 1.5 mls/hr IV .Q24H [facility] Rx#: [id number] Output: Urine 1519 636 6590 Other: Voiding Method Indwelling Catheter Indwelling Catheter Indwelling Catheter - Exam GENERAL EXAM: Patient is alert and oriented and doesn't appear to be in any acute distress, sitting up in the chair HEENT: Normocephalic. Normal reaction of pupils, equal size, normal range of extraocular motion. No erythema or exudates in the throat. NECK: No masses, no nuchal rigidity. CHEST: No chest wall deformity. LUNGS: Equal air entry with no crackles or wheeze. HEART: S1 and S2 normal with no audible mumurs or gallops. Regular rhythm, femorals equal on both sides.. ABDOMEN: No hepatosplenomegaly, normal bowel sounds, no guarding or rigidity. SKIN: No rashes CENTRAL NERVOUS SYSTEM: No focal deficits. EXTREMITIES: Mild edema - Labs CBC & Chem 7: 10/27/21 05:56 10/27/21 05:56 Labs: Abnormal Lab Results - Last 24 Hours (Table) 10/26/21 10/26/21 10/27/21 Range/Units 16:20 16:20 05:56 WBC 13.4 H 12.2 H (3.8-10.6) k/uL MCHC 30.8 L (31.0-37.0) g/dL Neutrophils # 10.4 H 9.7 H (1.3-7.7) k/uL Sodium 133 L (137-145) mmol/L Glucose (74-99) mg/dL AST (17-59) U/L Total Protein (6.3-8.2) g/dL Albumin (3.5-5.0) g/dL 10/27/21 Range/Units 05:56 WBC (3.8-10.6) k/uL MCHC (31.0-37.0) g/dL Neutrophils # (1.3-7.7) k/uL Sodium 133 L (137-145) mmol/L Glucose 131 H (74-99) mg/dL AST 89 H (17-59) U/L Total Protein 5.9 L (6.3-8.2) g/dL Albumin 3.4 L (3.5-5.0) g/dL Assessment and Plan (1) Left main coronary artery disease Current Visit: Yes Status: Acute Code(s): I25.10 - ATHSCL HEART DISEASE OF [place] CORONARY ARTERY W/O ANG PCTRS SNOMED Code(s): 749468235 (2) Acute exacerbation of chronic obstructive pulmonary disease (COPD) Current Visit: No Status: Acute Code(s): J44.1 - CHRONIC OBSTRUCTIVE PULMONARY DISEASE W (ACUTE) EXACERBATION SNOMED Code(s): 690882768 (3) HIV (human immunodeficiency virus infection) Current Visit: No Status: Acute Code(s): B20 - HUMAN IMMUNODEFICIENCY VIRUS [HIV] DISEASE SNOMED Code(s): 82692808 Plan: Patient is status post stent placement of the left main and angioplasty of the circumflex. Patient seemed to be clinically stable. Groin is soft without any hematoma. Patient could be transferred to telemetry unit and increase activity as tolerated
--- NOTE | 2021-10-27 13:14 | P.PN ---
Subjective Progress Note Date: 10/27/21 This is a 61-year-old male patient with a history of hypertension, anxiety/depression, gastroesophageal reflux disease, hypothyroidism, chronic obstructive pulmonary disease with chronic and ongoing tobacco dependence and HIV diagnosed in 1990. he presented here to the emergency room on 10/23/2021 with complaints of chest pain. On October 24 he had undergone cardiac catheterization that revealed 85% distal left main stenosis, proximal LAD 20-37% stenosis, proximal circumflex 40-50% stenosis and 100% RCA stenosis with left to right collaterals. Echocardiogram revealed preserved left ventricular systolic function with ejection fraction of 55%. Mild mitral regurgitation. FEV1 value 1.33 L or 48% of predicted. He was seen and evaluated by cardiothoracic surgery who considered the patient very high risk for surgical revascularization. Today the patient was taken back to the [facility] to undergo Impella protected PCI of the left main. He is seen in consultation in the ICU shortly upon return from [facility]. He is somewhat sedated. Maintaining O2 saturations in the 90s on 6L simple mask. He does have a FemStop to the left groin, peripheral pulses are palpable. Currently in sinus rhythm. The patient is seen today 10/27/2021 in follow-up in the intensive care unit. He is awake and alert in no acute distress. Currently sitting up in a chair at the bedside. Today's postoperative day #1 of an Impella-assisted PCI/stenting of the LAD. He also had a PTBA of the the circumflex artery, rotational atherectomy of the left main, balloon tamponade of the left femoral access site secondary to failed Perclose. Then stop has since been removed. Bilateral groins are stable. Pedal pulses are palpable. No chest pain or palpitations. No worsening shortness of breath, cough or congestion. He is requiring 12 L high flow nasal cannula to maintain O2 saturations in the low 90s. Today's ches t x-ray reveals no acute pulmonary process. White count 12.2. Hemoglobin 14.4. Platelet count 229. Sodium 133. Potassium 4.5. BUN 13. Creatinine 1.05. Glucose 131. AST 89. ALT 34. He is continued on IV diuretics. Currently in a +957 mL balance. Objective - Vital Signs Vital signs: Vital Signs Temp 98.2 F 10/27/21 12:00 Pulse 80 10/27/21 13:00 Resp 17 10/27/21 13:00 BP 105/73 10/27/21 13:00 Pulse Ox 90 L 10/27/21 13:00 FiO2 50 10/27/21 00:25 Intake & Output 10/26/21 10/27/21 10/27/21 18:59 06:59 18:59 Intake Total 1675 680 178.875 Output Total 9026 073 9401 Balance 240 -235 -2141.125 Weight 110.2 kg 118.1 kg Intake: IV 1675 680 120 Sodium Chloride 0.9% 1, 225 680 120 000 ml In Empty Bag 1 bag @ 1 ML/KG/HR 110.2 mls/ hr IV .Q9H5M [facility] Rx#: [id number] Intake, IV Titration 58.875 Amount Nitroglycerin-D5w Pmx 50 58.875 mg In Dextrose/Water 1 250ml.bag @ 5 MCG/MIN 1.5 mls/hr IV .Q24H [facility] Rx#: [id number] Output: Urine 7553 [id number] 0165 Other: Voiding Method Indwelling Catheter Indwelling Catheter Indwelling Catheter - Exam GENERAL EXAM: Awake, alert pleasant 61-year-old male patient, on 12 L high flow nasal cannula, sitting up in a chair at the bedside, comfortable in no apparent distress. HEAD: Normocephalic. EYES: Normal reaction of pupils, equal size. NOSE: Clear with pink turbinates. THROAT: No erythema or exudates. NECK: No masses, no JVD. CHEST: No chest wall deformity. LUNGS: Equal air entry with no crackles, wheeze, rhonchi or dullness. CVS: S1 and S2 normal with no audible murmur, regular rhythm. ABDOMEN: No hepatosplenomegaly, normal bowel sounds, no guarding or rigidity. SPINE: No scoliosis or deformity SKIN: No rashes CENTRAL NERVOUS SYSTEM: No focal deficits, tone is normal in all 4 extremities. EXTREMITIES: There is no peripheral edema. No clubbing, no cyanosis. Peripheral pulses are intact. - Labs CBC & Chem 7: 10/27/21 05:56 10/27/21 05:56 Labs: Abnormal Lab Results - Last 24 Hours (Table) 10/26/21 10/26/21 10/27/21 Range/Units 16:20 16:20 05:56 WBC 13.4 H 12.2 H (3.8-10.6) k/uL MCHC 30.8 L (31.0-37.0) g/dL Neutrophils # 10.4 H 9.7 H (1.3-7.7) k/uL Sodium 133 L (137-145) mmol/L Glucose (74-99) mg/dL AST (17-59) U/L Total Protein (6.3-8.2) g/dL Albumin (3.5-5.0) g/dL 10/27/21 Range/Units 05:56 WBC (3.8-10.6) k/uL MCHC (31.0-37.0) g/dL Neutrophils # (1.3-7.7) k/uL Sodium 133 L (137-145) mmol/L Glucose 131 H (74-99) mg/dL AST 89 H (17-59) U/L Total Protein 5.9 L (6.3-8.2) g/dL Albumin 3.4 L (3.5-5.0) g/dL Assessment and Plan Assessment: Coronary artery disease including left main stenosis. Status post Impella protected PCI with stenting to the left main, rotational atherectomy left main, PTBA to the circumflex, balloon to have been out of the left femoral access site secondary to failed Perclose performed on 10/26/2021 Acute hypoxemic respiratory failure secondary to suspected acute COPD exacerbation Chronic and ongoing tobacco dependence Chronic obstructive pulmonary disease with an FEV1 value 1.33 L or 48% of predicted History of HIV History of anxiety/depression History of hypertension Hypothyroidism Obesity Plan: The patient was seen and evaluated Chest x-ray, labs and medications reviewed The patient is requiring 12 L high flow nasal cannula Add DuoNeb inhalations, Pulmicort and Perforomist inhalations Titrate the FiO2 as tolerated Educate regarding the importance of complete smoking cessation We will continue to follow I have personally seen and examined the patient, performed the documentation and the assessment and plan as written. Number of minutes spent on the visit: 10.
[2021-10-27] MEDS: IPRATROPIUM-ALBUTEROL 3 ML NEB INHALATION SCH ×2 (16:30→21:04)
[2021-10-27] MEDS: ATORVASTATIN 40 MG TAB PO SCH (20:57)
[2021-10-27] MEDS: traZODone HCL 50 MG TAB PO SCH (20:57)
[2021-10-27] MEDS: Emtricitabine/Tenofov Alafenam [Descovy 200-25 Mg Tablet] PO SCH (20:58)
[2021-10-27] MEDS: BUDESONIDE 1 MG/2 ML NEBU INHALATION SCH (21:04)
[2021-10-27] MEDS: FORMOTEROL FUMARATE 20 MCG/2 ML NEBU INHALATION SCH (21:04)
[2021-10-28] MEDS: MORPHINE SULFATE 4 MG/ML SYRINGE IVP PRN ×3 (05:55→22:54)
[2021-10-28] MEDS: LEVOTHYROXINE 25 MCG TAB PO SCH (05:57)
[2021-10-28] MEDS: ACETAMINOPHEN TAB 325 MG TAB PO PRN ×2 (06:34→16:59)
--- NOTE | 2021-10-28 07:46 | P.PN ---
Subjective Progress Note Date: 10/27/21 Principal diagnosis: HIV Patient is a 61-year-old male with a past medical history significant for HIV for many years for which the patient to follow with ID physician do mock presented to the hospital with chest pain has been diagnosed with multivessel disease and the patient is status post percutaneous cardiac intervention completed on 10/26/2021. On today's evaluation that is 10/27/2021, the patient denies having any fever or any chills, patient denies having any chest pain shortness of breath or cough no abdominal pain no diarrhea Objective - Vital Signs Vital signs: Vital Signs Temp 98.2 F 10/27/21 12:00 Pulse 80 10/27/21 13:00 Resp 17 10/27/21 13:00 BP 105/73 10/27/21 13:00 Pulse Ox 90 L 10/27/21 13:00 FiO2 50 10/27/21 00:25 Intake & Output 10/26/21 10/27/21 10/27/21 18:59 06:59 18:59 Intake Total 1675 680 178.875 Output Total 8861 958 0400 Balance 240 -235 -2141.125 Weight 110.2 kg 118.1 kg Intake: IV 1675 680 120 Sodium Chloride 0.9% 1, 225 680 120 000 ml In Empty Bag 1 bag @ 1 ML/KG/HR 110.2 mls/ hr IV .Q9H5M [facility] Rx#: [id number] Intake, IV Titration 58.875 Amount Nitroglycerin-D5w Pmx 50 58.875 mg In Dextrose/Water 1 250ml.bag @ 5 MCG/MIN 1.5 mls/hr IV .Q24H [facility] Rx#: [id number] Output: Urine 2845 260 4942 Other: Voiding Method Indwelling Catheter Indwelling Catheter Indwelling Catheter - Exam GENERAL DESCRIPTION: Middle-age male up in the chair in no distress RESPIRATORY SYSTEM: Unlabored breathing , decreased breath sounds at bases HEART: S1 S2 regular rate and rhythm , ABDOMEN: Soft , no tenderness EXTREMITIES: No edema feet - Labs CBC & Chem 7: 10/27/21 05:56 10/27/21 05:56 Labs: Abnormal Lab Results - Last 24 Hours (Table) 10/26/21 10/26/21 10/27/21 Range/Units 16:20 16:20 05:56 WBC 13.4 H 12.2 H (3.8-10.6) k/uL MCHC 30.8 L (31.0-37.0) g/dL Neutrophils # 10.4 H 9.7 H (1.3-7.7) k/uL Sodium 133 L (137-145) mmol/L Glucose (74-99) mg/dL AST (17-59) U/L Total Protein (6.3-8.2) g/dL Albumin (3.5-5.0) g/dL 10/27/21 Range/Units 05:56 WBC (3.8-10.6) k/uL MCHC (31.0-37.0) g/dL Neutrophils # (1.3-7.7) k/uL Sodium 133 L (137-145) mmol/L Glucose 131 H (74-99) mg/dL AST 89 H (17-59) U/L Total Protein 5.9 L (6.3-8.2) g/dL Albumin 3.4 L (3.5-5.0) g/dL Assessment and Plan (1) HIV (human immunodeficiency virus infection) Current Visit: No Status: Acute Code(s): B20 - HUMAN IMMUNODEFICIENCY VIRUS [HIV] DISEASE SNOMED Code(s): 13953244 Plan: 1patient with HIV for many years for the patient has been following in [facility] with an ID physician however has not seen a physician in more than 18 months now and the patient mention did not have any blood work done, patient admitted to hospital with chest pain and has been diagnosed with multivessel disease. 2we will try to obtain his genotype of his ID physician and waiting for CD4 count and viral load. 3patient to continue with the [facility]. Time with Patient: Less than 30
[2021-10-28 08:09] LABS: Basophils % (A) 0 %; Eosinophils # (A) 0.4 k/uL (0-0.7); Eosinophils % (A) 3 %; HCT 45.7 % (39.0-53.0); HGB 13.6 gm/dL (13.0-17.5); Lymphocytes # (A) 1.3 k/uL (1.0-4.8); Lymphocytes % (A) 10 %; MCH 27.7 pg (25.0-35.0); MCHC 29.7 g/dL (31.0-37.0); MCV 93.3 fL (80.0-100.0); Mean Platelet Volume 7.8; Monocytes # (A) 0.7 k/uL (0-1.0); Monocytes % (A) 6 %; Neutrophils % (A) 79 %; Platelet Count 196 k/uL (150-450); RBC 4.89 m/uL (4.30-5.90); RDW 13.1 % (11.5-15.5); WBC 12.6 k/uL (3.8-10.6)
[2021-10-28] MEDS: BACLOFEN 10 MG TAB PO SCH ×4 (08:29→21:02)
[2021-10-28] MEDS: LORATADINE 10 MG TAB PO SCH (08:30)
[2021-10-28] MEDS: lisinopriL 10 MG TAB PO SCH (08:30)
[2021-10-28] MEDS: CITALOPRAM HYDROBROMIDE 20 MG TAB PO SCH (08:30)
[2021-10-28] MEDS: ASPIRIN 81 MG PO SCH (08:30)
[2021-10-28] MEDS: DOCUSATE 100 MG CAP PO SCH (08:30)
[2021-10-28] MEDS: CLOPIDOGREL 75 MG TAB PO SCH (08:30)
[2021-10-28] MEDS: GABAPENTIN 400 MG CAP PO SCH ×3 (08:30→21:03)
[2021-10-28] MEDS: MORPHINE SULFATE IR 15 MG TABLET PO SCH ×4 (08:30→21:01)
[2021-10-28] MEDS: METOPROLOL SUCCINATE (ER) 25 MG TAB.ER.24H PO SCH (08:30)
[2021-10-28] MEDS: FUROSEMIDE 10 MG/ML 4 ML VIAL IV SCH (08:31)
[2021-10-28] MEDS: buPROPion XL 300 MG TAB.ER.24H PO SCH (08:31)
[2021-10-28] MEDS: DILTIAZEM CD 180 MG CAP.ER.24H PO SCH (08:31)
[2021-10-28] MEDS: TRIAMTERENE-HCTZ 37.5-25MG 1 EACH TAB PO SCH (08:31)
[2021-10-28] MEDS: INTELENCE 200 MG PO SCH ×2 (08:31→20:07)
[2021-10-28] MEDS: IPRATROPIUM BROMIDE 0.06% NASAL SPRAY (15 ML) EA NOSTRIL SCH ×2 (08:31→21:03)
[2021-10-28 08:35] LABS: ALT 41 U/L (4-49); AST 81 U/L (17-59); African American GFR (CKD) >90 (>60 ml/min/1.73 sqM); Albumin 3.4 g/dL (3.5-5.0); Alkaline Phosphatase 54 U/L (38-126); Anion Gap 3 mmol/L; Blood Urea Nitrogen 13 mg/dL (9-20); Calcium 8.8 mg/dL (8.4-10.2); Carbon Dioxide 30 mmol/L (22-30); Chloride 98 mmol/L (98-107); Glucose 173 mg/dL (74-99); Non-African American GFR(CKD) 90 (>60 ml/min/1.73 sqM); Potassium 4.5 mmol/L (3.5-5.1); Sodium 131 mmol/L (137-145); Total Bilirubin 0.4 mg/dL (0.2-1.3); Total Protein 5.9 g/dL (6.3-8.2)
[2021-10-28] MEDS: IPRATROPIUM-ALBUTEROL 3 ML NEB INHALATION SCH ×4 (08:50→19:45)
[2021-10-28] MEDS: FORMOTEROL FUMARATE 20 MCG/2 ML NEBU INHALATION SCH ×2 (08:50→19:56)
[2021-10-28] MEDS: BUDESONIDE 1 MG/2 ML NEBU INHALATION SCH ×2 (08:50→19:45)
--- NOTE | 2021-10-28 08:53 | XR ---
EXAMINATION TYPE: XR chest 1V portable DATE OF EXAM: 10/28/2021 COMPARISON: 10/27/2021 HISTORY: Shortness of breath TECHNIQUE: Single frontal view of the chest is obtained. FINDINGS: Exam limited by positioning and reduced inspiration. Bilateral infiltrates are stable. Hea rt size stable. No obvious pneumothorax. Small bilateral pleural effusions. Hypertrophic change of th e spine. IMPRESSION: Stable bilateral infiltrates.
--- NOTE | 2021-10-28 09:13 | P.PN ---
Subjective Progress Note Date: 10/28/21 The patient is a 61-year-old male who is currently admitted to the hospital with chest pain. The patient underwent stenting of the distal left main and balloon angioplasty of the circumflex with Impella support on 10/26/2021. Echocardiogram revealed preserved LV function. The patient recovered from his procedure well, however over the last 24 hours has required more oxygen support. The patient does have a history of COPD. Nursing staff states overnight they needed to use BiPAP and he is now on 14 L high flow nasal cannula. He continues to void well and is tolerating his cardiac medications. The patient denies any chest pain or chest pressure. He is currently not labored in his breathing. He denies any heart racing or fluttering. GENERAL: Well-appearing, well-nourished and in no acute distress. NECK: Supple without JVD or thyromegaly. LUNGS: Breath sounds are severely diminished to auscultation bilaterally. Respiration equal and unlabored. No wheezes, rales or rhonchi. HEART: Regular rate and rhythm without murmurs, rubs or gallops. S1 and S2 heard. EXTREMITIES: Normal range of motion, no edema. No clubbing or cyanosis. Peripheral pulses intact and strong. VITALS: Blood pressure 90/52, pulse 80, respiratory rate 12, SpO2 88% on 14 L high flow nasal cannula TELEMETRY: Sinus mechanism overnight LABS: WBC 12.6, hemoglobin 13.6, hematocrit 45.7, platelet 196, sodium 131, potassium 4.5, BUN 13, creatinine 0.93, AST 81, ALT 41 IMPRESSION: Coronary artery disease, status post stenting of left main and PTBA of circumflex Acute exacerbation of COPD Hypertension, currently hypotensive History of HIV PLAN: Transition to oral furosemide Increased oxygen requirements to be addressed by pulmonology No further recommendations at this I am dictating on behalf of Dr Franklin Kennedy's history/physical and assessment/plan. Objective - Vital Signs Vital signs: Vital Signs Temp 98.1 F 10/28/21 08:00 Pulse 77 10/28/21 09:02 Resp 12 10/28/21 08:00 BP 90/52 10/28/21 08:00 Pulse Ox 88 L 10/28/21 08:51 FiO2 14 10/28/21 08:00 Intake & Output 10/27/21 10/28/2110/28/22 18:59 06:59 18:59 Intake Total 278.875 240 Output Total 3745 1100 300 Balance -3466.125 -1100 -60 Weight 114.7 kg Intake: IV 220 Sodium Chloride 0.9% 1, 220 000 ml In Empty Bag 1 bag @ 1 ML/KG/HR 110.2 mls/ hr IV .Q9H5M [facility] Rx#: [id number] Intake, IV Titration 58.875 Amount Nitroglycerin-D5w Pmx 50 58.875 mg In Dextrose/Water 1 250ml.bag @ 5 MCG/MIN 1.5 mls/hr IV .Q24H [facility] Rx#: [id number] Oral 240 Output: Urine 3745 1100 300 Other: Voiding Method Indwelling Catheter Indwelling Catheter Indwelling Catheter - Labs CBC & Chem 7: 10/28/21 07:59 10/28/21 07:59 Labs: Abnormal Lab Results - Last 24 Hours (Table) 10/28/21 10/28/21 Range/Units 07:59 07:59 WBC 12.6 H (3.8-10.6) k/uL MCHC 29.7 L (31.0-37.0) g/dL Neutrophils # 10.0 H (1.3-7.7) k/uL Sodium 131 L (137-145) mmol/L Glucose 173 H (74-99) mg/dL AST 81 H (17-59) U/L Total Protein 5.9 L (6.3-8.2) g/dL Albumin 3.4 L (3.5-5.0) g/dL
[2021-10-28] MEDS: SODIUM CHLORIDE 0.9% 500 ML 500 ML IV SCH (10:15)
[2021-10-28] MEDS: NON FORMULARY DRUG (Phentermine Hcl [Adipex-P] 37.5 MG Tablet) PO SCH (10:15)
--- NOTE | 2021-10-28 11:24 | CT ---
EXAMINATION TYPE: CT angio chest DATE OF EXAM: 10/28/2021 COMPARISON: CT dated 06/09/2019 HISTORY: Hypoxemia CT DLP: 854.9 mGy.cm. Automated Exposure Control for Dose Reduction was Utilized. TECHNIQUE AND CONTRAST: CTA scan of the thorax is performed with IV Contrast, patient injected with 100 mL of Isovue 300, pul [facility] angiogram protocol. MIP Images are created on an independent workstation and reviewed. FINDINGS: Pulmonary embolism is seen within the medial segmental pulmonary artery of the right lower lobe. No o ther definite pulmonary emboli seen in the pulmonary trunk, main pulmonary arteries, lobar, segmental and proximal subsegmental pulmonary arteries. The pulmonary trunk measures up to 4.1 cm. No gross ca rdiomegaly or gross signs of right cardiac strain. Suspected coronary arterial calcifications. Moderate to severe COPD changes. 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 Associated infection or recurrent aspiration cannot be exc luded. Milder similar changes are seen in the right lower lobe, lingula and middle lobe. Patent trach ea and main bronchi. No sizable pleural or pericardial effusion. Soft tissue thickening along the lef t hilum, nonspecific. No pathologically enlarged lymph nodes in the chest. Left upper pole renal hypodensities, suboptimall y assessed by this CT scan and could represent renal cysts. Fatty infiltration of the visualized port ion of the pancreas. Fecal loading of the visualized portion of the colon. Chronic nonhealed slightly displaced and malaligned fractures of the posterior aspects of the left ribs. Degenerative changes o f the thoracic spine. IMPRESSION: Right lower lobe medial segmental pulmonary embolism as described above. No major or central pulmonar y embolism. Markedly dilated pulmonary artery measuring up to 4.1 cm, please correlate with echocardiographic res ults. Further cardiothoracic surgery consultation can be considered. Other findings as described monica whalen.
[2021-10-28 11:31] VITALS: BMI 44.8
[2021-10-28 14:17] LABS: T4/T8 Ratio (CD4:CD8) 0.9 (1.0-3.7)
--- NOTE | 2021-10-28 15:10 | P.PN ---
Subjective Progress Note Date: 10/28/21 On 10/28/2021, the patient is being seen for a follow-up. 61-year-old male patient with known history of COPD, previous HIV from 1990, hypertension, acid reflux, hypothyroidism and chronic anxiety/depression. The patient also has a underlying coronary artery disease and the patient had an emboli-assisted PCI and stenting of the LAD. The patient also had acute CVA of the circumflex vessel and atherectomy of the left main. For now, the patient is doing well. Since yesterday on over the past 24-48 hours, there is a progressive increase in the patient's oxygen requirement and earlier today the patient was up to 15 L of oxygen by nasal cannula with a pulse ox of 90-91%. On examination, the patient had significant diminished breath sounds bilaterally. The puncture sites have been stable and there is no evidence of any bleeding or hematoma formation. The patient adequate pedal pulses lower extremity is bilaterally. No major respiratory distress at this point in time. The patient is free of any chest pain. The blood work showing a white second of 12.6 and hemoglobin 15.6 and a platelet count of 196. Rezulin electrodes are all within normal limits. The patient received a dose of Lasix today 40 mg IV push and the fluid balance is negative at least 4.6 L as the patient diurese aggressively following a Lasix dose. Ordered a CT angiogram to evaluate the ongoing hypoxemia. Objective - Vital Signs Vital signs: Vital Signs Temp 98.1 F 10/28/21 08:00 Pulse 78 10/28/21 09:11 Resp 12 10/28/21 08:00 BP 90/52 10/28/21 08:00 Pulse Ox 88 L 10/28/21 08:51 FiO2 14 10/28/21 08:00 Intake & Output 10/27/21 10/28/21 10/28/21 18:59 06:59 18:59 Intake Total 278.875 240 Output Total 3745 1100 300 Balance -3466.125 -1100 -60 Weight 114.7 kg Intake: IV 220 Sodium Chloride 0.9% 1, 220 000 ml In Empty Bag 1 bag @ 1 ML/KG/HR 110.2 mls/ hr IV .Q9H5M [facility] Rx#: [id number] Intake, IV Titration 58.875 Amount Nitroglycerin-D5w Pmx 50 58.875 mg In Dextrose/Water 1 250ml.bag @ 5 MCG/MIN 1.5 mls/hr IV .Q24H [facility] Rx#: [id number] Oral 240 Output: Urine 3745 1100 300 Other: Voiding Method Indwelling Catheter Indwelling Catheter Indwelling Catheter - Exam GENERAL EXAM: Awake, alert pleasant 61-year-old male patient, on 15 L high flow nasal cannula, sitting up in a chair at the bedside, comfortable in no apparent distress. HEAD: Normocephalic. EYES: Normal reaction of pupils, equal size. NOSE: Clear with pink turbinates. THROAT: No erythema or exudates. NECK: No masses, no JVD. CHEST: No chest wall deformity. LUNGS: Equal air entry with no crackles, wheeze, rhonchi or dullness. CVS: S1 and S2 normal with no audible murmur, regular rhythm. ABDOMEN: No hepatosplenomegaly, normal bowel sounds, no guarding or rigidity. SPINE: No scoliosis or deformity SKIN: No rashes CENTRAL NERVOUS SYSTEM: No focal deficits, tone is normal in all 4 extremities. EXTREMITIES: There is no peripheral edema. No clubbing, no cyanosis. Peripheral pulses are intact. - Labs CBC & Chem 7: 10/28/21 07:59 10/28/21 07:59 Labs: Abnormal Lab Results - Last 24 Hours (Table) 10/28/21 10/28/21 Range/Units 07:59 07:59 WBC 12.6 H (3.8-10.6) k/uL MCHC 29.7 L (31.0-37.0) g/dL Neutrophils # 10.0 H (1.3-7.7) k/uL Sodium 131 L (137-145) mmol/L Glucose 173 H (74-99) mg/dL AST 81 H (17-59) U/L Total Protein 5.9 L (6.3-8.2) g/dL Albumin 3.4 L (3.5-5.0) g/dL Assessment and Plan Plan: Coronary artery disease including left main stenosis. Status post Impella protected PCI with stenting to the left main, rotational atherectomy left main, PTBA to the circumflex, balloon to have been out of the left femoral access site secondary to failed Perclose performed on 10/26/2021, subsequent intervention without other Perclose and from stop with control of the puncture sites.. The patient has a normal echocardiogram with normal LV function, no valvular heart disease or pulmonary hypertension. The patient is free of any chest pain, was being diuresed with IV Lasix with an excellent negative fluid balance and currently is on oral Lasix in addition to his aspirin, Plavix, beta blockers in the form of metoprolol XL 25 mg by mouth daily, and Zestril. Acute hypoxemic respiratory failure secondary to suspected acute COPD exacerbation overnight, the patient was in a BiPAP at a pressure of 12/5 cm of water. Currently off the BiPAP and the patient is currently on oxygen at 14 L with a pulse ox of 89%. Shortness of breath secondary to above Chronic and ongoing tobacco dependence, chest x-ray from today shows stable bilateral pleural effusions, no acute abnormalities Chronic obstructive pulmonary disease with an FEV1 value 1.33 L or 48% of predicted History of HIV History of anxiety/depression History of hypertension Hypothyroidism Obesity Plan: Give the patient IV Lasix 40 mg IV push and this was followed with excellent diuresis Proceed with a CT angiogram to evaluate for pulmonary embolism The patient is known to have moderate to severe emphysema Keep the oxygen at 15 L high flow and gradually wean it off to maintain a saturation above 90% Continue bronchodilators Continue the rest of the cardiac medications Keep the patient ICU I will review the CT angiogram and make further recommendations based on his progress.
--- NOTE | 2021-10-28 17:13 | P.PN ---
Subjective Progress Note Date: 10/28/21 Jack Luna, is a 61-year-old male who presented to [facility] emergency room with a chief complaint of chest pain He was evaluated in the emergency room vital examination on presentation r evealed a temperature of 98 pulse 94 respiration 20 blood pressure 143/91 pulse ox 94% on room air Laboratory data revealed a white blood count of 13.3 IMO globin 16.5 platelet count 258 sodium 131 potassium 4.2 chloride 96 CO2 28 BUN 17 creatinine 0.98 troponin level was 0.0-4 Testing in the emergency room revealed EKG done in the emergency room revealed sinus rhythm with first-degree AV block and incomplete right bundle branch block, chest x-ray done in the emergency room revealed evidence of cardiomegaly otherwise no abnormality seen. Patient was admitted to medical floor for further evaluation and treatment, cardiology consultation was requested. Past medical history is significant for history of hypertension, history of COPD, history of osteoarthritis, history of HIV AIDS syndrome diagnosed in 1990 maintained on medications through infectious disease in [place], history of peripheral neuropathy, history of obstructive sleep apnea, history of degenerative disc disease, history of bipolar disorder, history of recurrent bilateral lower extremity cellulitis and history of tobacco use On 10/25/2021 patient is alert and oriented 3. Patient is status post cardiac catheterization which patient was found to have multivessel disease including 85% distal left main stenosis, proximal LAD 20-30% stenosis proximal circumflex 40-55% stenosis and 100% RCA stenosis with [id number] collaterals. Patient was evaluated by cardiothoracic surgery but appears that the plan at this time i s to proceed with catheterization and stent. Patient remains on IV heparin drip. At this time patient denies chest pain or shortness of breath. Patient denies nausea vomiting or diarrhea. Patient denies any urinary burning or frequency. On 10/26/2021 patient was seen and examined in the ICU he is alert and oriented in no apparent distress, last night he had episodes of worsening shortness of breath, he was transferred to intensive care unit, pulmonary consultation was requested, this morning he was evaluated by cardiology, and decision was made to proceed with high risk PCI Impella protected, input from Dr. Agudelo infectious disease reviewed will continue to follow closely. On 10/27/2021 patient was seen and examined in the ICU he is alert and oriented 3 in no apparent distress he is sitting up in a chair he denies any new episodes of chest pain he is still having shortness of breath with any activity he is maintained on high flow oxygen at 12 L/m otherwise he denies any complain ts there is no fever or chills no headache or dizziness no chest pain no cough no nausea or vomiting no abdominal pain no diarrhea and no urinary symptoms. Chest x-ray today reveals left lower lobe infiltrate and right small pleural effusion. On 10/28/2021 patient was seen and examined in the ICU he is alert and oriented 3 in no apparent distress, he is still requiring high flow oxygen at 15 L/m, his O2 sat duration is 88%, he was evaluated by pulmonary, and cardiology, CT angiogram of the chest was done and revealed right lower lobe medial segmental pulmonary embolism, and evidence of markedly dilated pulmonary artery measuring up to 4.1 cm. Patient was started on oral Xarelto 15 mg twice daily. Cardiology pulmonary and cardiothoracic surgery are following. Objective - Vital Signs Vital signs: Vital Signs Temp 98.2 F 10/28/21 12:00 Pulse 76 10/28/21 12:00 Resp 9 L 10/28/21 12:00 BP 105/64 10/28/21 12:00 Pulse Ox 89 L 10/28/21 12:00 FiO2 14 10/28/21 08:00 Intake & Output 10/27/21 10/28/21 10/28/21 18:59 06:59 18:59 Intake Total 278.875 240 Output Total 3745 1100 1300 Balance -3466.125 -1100 -1060 Weight 114.7 kg 114.7 kg Intake: IV 220 Sodium Chloride 0.9% 1, 220 000 ml In Empty Bag 1 bag @ 1 ML/KG/HR 110.2 mls/ hr IV .Q9H5M [facility] Rx#: [id number] Intake, IV Titration 58.875 Amount Nitroglycerin-D5w Pmx 50 58.875 mg In Dextrose/Water 1 250ml.bag @ 5 MCG/MIN 1.5 mls/hr IV .Q24H [facility] Rx#: [id number] Oral 240 Output: Urine 3745 1100 1300 Other: Voiding Method Indwelling Catheter Indwelling Catheter Indwelling Catheter - Exam In general patient is alert and oriented x 3 in no distress HEENT head normocephalic and atraumatic Neck is supple no JVD no goiter no lymphadenopathy no carotid bruit Chest examination is clear to auscultation no crackles no wheezing Cardiac exam reveals regular heart sounds S1 and S2 no gallops no murmurs Abdomen is soft nontender no organomegaly with normal bowel sounds Extremity exam reveals no edema no cyanosis or clubbing Neurological examination reveals no gross focal deficits - Labs CBC & Chem 7: 10/28/21 07:59 10/28/21 07:59 Labs: Abnormal Lab Results - Last 24 Hours (Table) 10/28/21 10/28/21 Range/Units 07:59 07:59 WBC 12.6 H (3.8-10.6) k/uL MCHC 29.7 L (31.0-37.0) g/dL Neutrophils # 10.0 H (1.3-7.7) k/uL Sodium 131 L (137-145) mmol/L Glucose 173 H (74-99) mg/dL AST 81 H (17-59) U/L Total Protein 5.9 L (6.3-8.2) g/dL Albumin 3.4 L (3.5-5.0) g/dL Assessment and Plan Plan: Coronary artery disease with multivessel involvement. Post catheterization which was found to have left main stenosis of 85%, proximal RCA stenosis 100%, proximal LAD 20-30% stenosis patient was evaluated cardiothoracic surgery. Patient underwent Impella protected, rotational atherectomy, of the left main yesterday Underlying history of hypertension Underlying history of COPD Underlying history of HIV AIDS syndrome Underlying history of osteoarthritis Underlying history of degenerative disc disease Underlying history of bipolar disorder Underlying history of anxiety with panic disorder Underlying history of continued tobacco use Patient remains on IV heparin drip Patient remains on IV Lasix Cardiology and cardiothoracic surgery are following Pulmonary critical care following Labs have been ordered
[2021-10-28] MEDS: Emtricitabine/Tenofov Alafenam [Descovy 200-25 Mg Tablet] PO SCH (20:07)
[2021-10-28] MEDS: ALPRAZolam 0.25 MG TAB PO PRN (20:07)
[2021-10-28] MEDS: ATORVASTATIN 40 MG TAB PO SCH (20:08)
[2021-10-28] MEDS: RIVAROXABAN 15 MG TAB PO SCH (20:08)
[2021-10-29] MEDS: traZODone HCL 50 MG TAB PO SCH ×2 (00:55→22:54)
[2021-10-29 01:00] LABS: African American GFR (CKD) >90 (>60 ml/min/1.73 sqM); Anion Gap 4 mmol/L; Blood Urea Nitrogen 18 mg/dL (9-20); Calcium 8.8 mg/dL (8.4-10.2); Carbon Dioxide 32 mmol/L (22-30); Chloride 92 mmol/L (98-107); Glucose 111 mg/dL (74-99); Magnesium 1.8 mg/dL (1.6-2.3); Non-African American GFR(CKD) 86 (>60 ml/min/1.73 sqM); Phosphorus 3.5 mg/dL (2.5-4.5); Potassium 4.2 mmol/L (3.5-5.1); Sodium 128 mmol/L (137-145)
[2021-10-29] MEDS: METOPROLOL SUCCINATE (ER) 25 MG TAB.ER.24H PO SCH ×2 (01:24→09:09)
[2021-10-29] MEDS: LEVOTHYROXINE 25 MCG TAB PO SCH (06:22)
[2021-10-29] MEDS: FORMOTEROL FUMARATE 20 MCG/2 ML NEBU INHALATION SCH ×2 (08:26→19:43)
[2021-10-29] MEDS: IPRATROPIUM-ALBUTEROL 3 ML NEB INHALATION SCH ×4 (08:26→19:23)
[2021-10-29] MEDS: BUDESONIDE 1 MG/2 ML NEBU INHALATION SCH ×2 (08:26→19:23)
--- NOTE | 2021-10-29 08:40 | P.PN ---
Subjective Progress Note Date: 10/29/21 On 10/28/2021, the patient is being seen for a follow-up. 61-year-old male patient with known history of COPD, previous HIV from 1990, hypertension, acid reflux, hypothyroidism and chronic anxiety/depression. The patient also has a underlying coronary artery disease and the patient had an emboli-assisted PCI and stenting of the LAD. The patient also had acute CVA of the circumflex vessel and atherectomy of the left main. For now, the patient is doing well. Since yesterday on over the past 24-48 hours, there is a progressive increase in the patient's oxygen requirement and earlier today the patient was up to 15 L of oxygen by nasal cannula with a pulse ox of 90-91%. On examination, the patient had significant diminished breath sounds bilaterally. The puncture sites have been stable and there is no evidence of any bleeding or hematoma formation. The patient adequate pedal pulses lower extremity is bilaterally. No major respiratory distress at this point in time. The patient is free of any chest pain. The blood work showing a white second of 12.6 and hemoglobin 15.6 and a platelet count of 196. Rezulin electrodes are all within normal limits. The patient received a dose of Lasix today 40 mg IV push and the fluid balance is negative at least 4.6 L as the patient diurese aggressively following a Lasix dose. Ordered a CT angiogram to evaluate the ongoing hypoxemia. 10/29/20212021, the patient is being seen for a follow-up. As part of further investigation for his ongoing hypoxemia, the patient underwent a CT angiogram of the chest. I was not convinced that the patient had a pulmonary embolism. Nevertheless, based on the radiologist's report, there is a segmental filling defect on the right upper lobe and based on that the patient was started on anticoagulation with Xarelto. Is currently receiving Xarelto 15 mg twice a day. The same time, the CAT scan showed extensive bilateral emphysematous changes and some atelectasis in lung bases which probably is one of the main contributing factors for his ongoing hypoxemia along with a component of fluid. He was given diuretics yesterday Lasix 40 mg IV and his overall fluid balance is been -3 L over the past 24 hours. The patient continues to produce excellent amount of urine output. He remains on 15 L of O2 nasal cannula. He has a Overton catheter in place. He continues to have adequate diuresis. In terms of his labs, there are still pending from this morning. Sodium level that we have is at 128, BUN is at 18 with a creatinine of 0.9 and a serum bicarb is at 32. The patient is awake and alert. He has been COPD. He has previous history of HIV. He has hypertension, acid reflux, hypothyroidism and chronic anxiety/depression. He is also obese. The pro calcitonin level is at 1.13 Objective - Vital Signs Vital signs: Vital Signs Temp 98.1 F 10/29/21 04:00 Pulse 71 10/29/21 08:27 Resp 14 10/29/21 08:27 BP 94/59 10/29/21 07:00 Pulse Ox 91 L 10/29/21 08:27 FiO2 65 10/29/21 05:00 Intake & Output 10/28/21 10/29/21 10/29/21 18:59 06:59 18:59 Intake Total 780 200 500 Output Total 2175 1810 120 Balance -1395 -1610 380 Weight 114.7 kg 115.5 kg Intake: Oral 780 200 500 Output: Urine 2175 1810 120 Other: Voiding Method Indwelling Catheter Indwelling Catheter # Voids 125 - Exam GENERAL EXAM: Awake, alert pleasant 61-year-old male patient, on 15 L high flow nasal cannula, sitting up in a chair at the bedside, comfortable in no apparent distress. HEAD: Normocephalic. EYES: Normal reaction of pupils, equal size. NOSE: Clear with pink turbinates. THROAT: No erythema or exudates. NECK: No masses, no JVD. CHEST: No chest wall deformity. LUNGS: Equal air entry with no crackles, wheeze, rhonchi or dullness. CVS: S1 and S2 normal with no audible murmur, regular rhythm. ABDOMEN: No hepatosplenomegaly, normal bowel sounds, no guarding or rigidity. SPINE: No scoliosis or deformity SKIN: No rashes CENTRAL NERVOUS SYSTEM: No focal deficits, tone is normal in all 4 extremities. EXTREMITIES: There is no peripheral edema. No clubbing, no cyanosis. Peripheral pulses are intact. - Labs CBC & Chem 7: 10/28/21 07:59 10/29/21 00:06 Labs: Abnormal Lab Results - Last 24 Hours (Table) 06/08/1310/28/21 10/28/21 Range/Units 17:05 07:59 07:59 Sodium 131 L (137-145) mmol/L Chloride (98-107) mmol/L Carbon Dioxide (22-30) mmol/L Glucose 173 H (74-99) mg/dL AST 81 H (17-59) U/L Total Protein 5.9 L (6.3-8.2) g/dL Albumin 3.4 L (3.5-5.0) g/dL Procalcitonin 1.13 H (0.02-0.09) ng/mL T-Suppressor Cells 1196 H (190-832) cell/ul CD4/CD8 Ratio 0.9 L (1.0-3.7) % CD8 Suppressor 46 H (9-37) % 10/29/21 Range/Units 00:06 Sodium 128 L (137-145) mmol/L Chloride 92 L (98-107) mmol/L Carbon Dioxide 32 H (22-30) mmol/L Glucose 111 H (74-99) mg/dL AST (17-59) U/L Total Protein (6.3-8.2) g/dL Albumin (3.5-5.0) g/dL Procalcitonin (0.02-0.09) ng/mL T-Suppressor Cells (190-832) cell/ul CD4/CD8 Ratio (1.0-3.7) % CD8 Suppressor (9-37) % Assessment and Plan Plan: Coronary artery disease including left main stenosis. Status post Impella prote cted PCI with stenting to the left main, rotational atherectomy left main, PTBA to the circumflex, balloon to have been out of the left femoral access site secondary to failed Perclose performed on 10/26/2021, subsequent intervention without other Perclose and from stop with control of the puncture sites.. The patient has a normal echocardiogram with normal LV function, no valvular heart disease or pulmonary hypertension. The patient is free of any chest pain, was being diuresed with IV Lasix with an excellent negative fluid balance and currently is on oral Lasix in addition to his aspirin, Plavix, beta blockers in the form of metoprolol XL 25 mg by mouth daily, and Zestril. Acute hypoxemic respiratory failure secondary to suspected acute COPD exacerbation overnight, the patient was in a BiPAP at a pressure of 12/5 cm of water. Currently off the BiPAP and the patient is currently on oxygen at 15 L with a pulse ox of 89%. No convincing evidence of pulmonary embolism. Based on the radiologist's report that showed segmental filling defect in the right lower lobe, the patient was started on Xarelto. The patient is also being treated for COPD exacerbation and he is being gradually diuresed. He remains on 15 L of oxygen by nasal cannula Shortness of breath secondary to above Chronic and ongoing tobacco dependence, chest x-ray from today shows stable bilateral pleural effusions, no acute abnormalities Chronic obstructive pulmonary disease with an FEV1 value 1.33 L or 48% of predicted History of HIV History of anxiety/depression History of hypertension Hypothyroidism Obesity Plan: Give the patient IV Lasix 40 mg IV daily Continue anticoagulation with Xarelto 50 mg twice a day for 3 weeks and following that 20 mg by mouth daily Start the patient IV Solu-Medrol to optimize COPD Continue bronchodilators Results of the CTA of the chest was noted The patient is still on 15 L of oxygen by nasal cannula, we'll gradually wean Continue BiPAP overnight Incentive spirometer Mucinex DM I was made aware that the patient did not use oxygen prior to him being admitted to the hospital. Repeat pro calcitonin level as there is no convincing evidence of pneumonia. Pu t him also on Levaquin as an empiric antibiotic coverage. Zmt Operator on the case and we'll continue to follow make further recommendations based on his progress.
[2021-10-29 08:53] LABS: Basophils # (A) 0.1 k/uL (0-0.2); Basophils % (A) 0 %; Eosinophils # (A) 0.4 k/uL (0-0.7); Eosinophils % (A) 2 %; Lymphocytes % (A) 7 %; MCH 29.6 pg (25.0-35.0); MCHC 32.6 g/dL (31.0-37.0); MCV 91.1 fL (80.0-100.0); Mean Platelet Volume 6.9; Monocytes # (A) 0.9 k/uL (0-1.0); Monocytes % (A) 6 %; Neutrophils # (A) 12.1 k/uL (1.3-7.7); Neutrophils % (A) 82 %; Platelet Count 220 k/uL (150-450); RBC 4.72 m/uL (4.30-5.90); RDW 13.6 % (11.5-15.5); WBC 14.6 k/uL (3.8-10.6)
[2021-10-29] MEDS: CLOPIDOGREL 75 MG TAB PO SCH (09:09)
[2021-10-29] MEDS: LORATADINE 10 MG TAB PO SCH (09:09)
[2021-10-29] MEDS: GABAPENTIN 400 MG CAP PO SCH ×3 (09:09→22:01)
[2021-10-29] MEDS: MORPHINE SULFATE IR 15 MG TABLET PO SCH ×4 (09:09→22:00)
[2021-10-29] MEDS: BACLOFEN 10 MG TAB PO SCH ×4 (09:09→22:00)
[2021-10-29] MEDS: methylPREDNISolone SOD SUCCI 125 MG/2 ML VIAL IV SCH ×3 (09:10→20:16)
[2021-10-29] MEDS: RIVAROXABAN 15 MG TAB PO SCH ×2 (09:10→20:13)
[2021-10-29] MEDS: DOCUSATE 100 MG CAP PO SCH (09:10)
[2021-10-29] MEDS: ASPIRIN 81 MG PO SCH (09:10)
[2021-10-29] MEDS: FUROSEMIDE 40 MG TAB PO SCH (09:10)
[2021-10-29] MEDS: CITALOPRAM HYDROBROMIDE 20 MG TAB PO SCH (09:10)
[2021-10-29] MEDS: buPROPion XL 300 MG TAB.ER.24H PO SCH (09:11)
[2021-10-29] MEDS: NON FORMULARY DRUG (Phentermine Hcl [Adipex-P] 37.5 MG Tablet) PO SCH (09:12)
[2021-10-29 09:14] LABS: ALT 53 U/L (4-49); AST 88 U/L (17-59); African American GFR (CKD) >90 (>60 ml/min/1.73 sqM); Albumin 3.8 g/dL (3.5-5.0); Alkaline Phosphatase 53 U/L (38-126); Anion Gap 6 mmol/L; Blood Urea Nitrogen 17 mg/dL (9-20); Calcium 8.9 mg/dL (8.4-10.2); Carbon Dioxide 31 mmol/L (22-30); Chloride 93 mmol/L (98-107); Glucose 134 mg/dL (74-99); Magnesium 1.8 mg/dL (1.6-2.3); Non-African American GFR(CKD) >90 (>60 ml/min/1.73 sqM); Potassium 4.5 mmol/L (3.5-5.1); Sodium 130 mmol/L (137-145); Total Bilirubin 0.5 mg/dL (0.2-1.3); Total Protein 6.4 g/dL (6.3-8.2)
--- NOTE | 2021-10-29 09:15 | P.PN ---
Subjective Progress Note Date: 10/29/21 The patient is a 61-year-old male who is currently admitted to the hospital with chest pain. The patient underwent stenting of the distal left main and balloon angioplasty of the circumflex with Impella support on 10/26/2021. Echocardiogram revealed preserved LV function. The patient recovered from his procedure well, however over the last 48 hours has required more oxygen support. Computed tomography scan of the chest performed yesterday did show possible pulmonary embolism, however this is questionable per pulmonology. Likely severe COPD exacerbation. He was started on anticoagulation. Today he is more hypotensive. The patient denies any chest pain or chest pressure. He is currently not labored in his breathing. He denies any heart racing or fluttering. GENERAL: Well-appearing, well-nourished and in no acute distress. NECK: Supple without JVD or thyromegaly. LUNGS: Breath sounds are severely diminished to auscultation bilaterally. Respiration equal and unlabored. No wheezes, rales or rhonchi. HEART: Regular rate and rhythm without murmurs, rubs or gallops. S1 and S2 heard. EXTREMITIES: Normal range of motion, no edema. No clubbing or cyanosis. Peripheral pulses intact and strong. VITALS: Blood pressure 107/65, pulse 72, respiratory rate 16, SpO2 92% on 15 L high flow nasal cannula TELEMETRY: Sinus mechanism overnight LABS: WBC 14.6, hemoglobin 14.0, hematocrit 43.0, platelet 220, sodium 128, potassium 4.2, BUN 18, creatinine 0.97 IMPRESSION: Coronary artery disease, status post stenting of left main and PTBA of circumflex Acute exacerbation of COPD Pulmonary embolism, on novel anticoagulation Hypotension, discontinue Dyazide and Cardizem Hyponatremia, discontinue Dyazide History of HIV PLAN: Discontinue Cardizem and Dyazide Continue metoprolol in the morning and lisinopril in the evening Continue low-dose furosemide Continue to monitor electrolytes Further recommendations to be based on clinical course I am dictating on behalf of Dr Franklin Kennedy's history/physical and assessment/plan. Objective - Vital Signs Vital signs: Vital Signs Temp 98.2 F 10/29/21 08:00 Pulse 72 10/29/21 09:00 Resp 16 10/29/21 09:00 BP 107/65 06/07/22 09:00 Pulse Ox 92 L 10/29/21 09:00 FiO2 65 10/29/21 05:00 Intake & Output 10/28/21 10/29/21 10/29/21 18:59 06:59 18:59 Intake Total 780 200 750 Output Total 2175 1810 350 Balance -1395 -1610 400 Weight 114.7 kg 115.5 kg Intake: Oral 780 200 750 Output: Urine 2175 1810 350 Other: Voiding Method Indwelling Catheter Indwelling Catheter # Voids 125 - Labs CBC & Chem 7: 10/29/21 08:21 10/29/21 00:06 Labs: Abnormal Lab Results - Last 24 Hours (Table) 10/25/21 10/28/21 10/29/21 Range/Units 17:05 07:59 00:06 WBC (3.8-10.6) k/uL Neutrophils # (1.3-7.7) k/uL Sodium 128 L (137-145) mmol/L Chloride 92 L (98-107) mmol/L Carbon Dioxide 32 H (22-30) mmol/L Glucose 111 H (74-99) mg/dL Procalcitonin 1.13 H (0.02-0.09) ng/mL T-Suppressor Cells 1196 H (190-832) cell/ul CD4/CD8 Ratio 0.9 L (1.0-3.7) % CD8 Suppressor 46 H (9-37) % 10/29/21 Range/Units 08:21 WBC 14.6 H (3.8-10.6) k/uL Neutrophils # 12.1 H (1.3-7.7) k/uL Sodium (137-145) mmol/L Chloride (98-107) mmol/L Carbon Dioxide (22-30) mmol/L Glucose (74-99) mg/dL Procalcitonin (0.02-0.09) ng/mL T-Suppressor Cells (190-832) cell/ul CD4/CD8 Ratio (1.0-3.7) % CD8 Suppressor (9-37) %
[2021-10-29] MEDS: IPRATROPIUM BROMIDE 0.06% NASAL SPRAY (15 ML) EA NOSTRIL SCH ×2 (09:31→20:19)
[2021-10-29] MEDS: INTELENCE 200 MG PO SCH ×2 (09:31→20:16)
[2021-10-29] MEDS: guaiFENesin-DM 600/30MG 1 EACH TAB.ER.12H PO SCH ×2 (11:12→20:14)
[2021-10-29] MEDS: LEVOFLOXACIN 500 MG TAB PO SCH (11:12)
[2021-10-29] MEDS: ACETAMINOPHEN TAB 325 MG TAB PO PRN (16:30)
[2021-10-29] MEDS ORDERED: Magnesium Replacement Protocol 1 EACH MISC MISCELLANE PRN (16:37)
[2021-10-29] MEDS: MAGNESIUM SULFATE-D5W PMX 1 GM in DEXTROSE/WATER 1 100ML.BAG IVPB SCH ×2 (17:05→18:21)
--- NOTE | 2021-10-29 17:23 | P.PN ---
Subjective Progress Note Date: 10/29/21 Jack Luna, is a 61-year-old male who presented to [facility] emergency room with a chief complaint of chest pain He was evaluated in the emergency room vital examination on presentation r evealed a temperature of 98 pulse 94 respiration 20 blood pressure 143/91 pulse ox 94% on room air Laboratory data revealed a white blood count of 13.3 IMO globin 16.5 platelet count 258 sodium 131 potassium 4.2 chloride 96 CO2 28 BUN 17 creatinine 0.98 troponin level was 0.0-4 Testing in the emergency room revealed EKG done in the emergency room revealed sinus rhythm with first-degree AV block and incomplete right bundle branch block, chest x-ray done in the emergency room revealed evidence of cardiomegaly otherwise no abnormality seen. Patient was admitted to medical floor for further evaluation and treatment, cardiology consultation was requested. Past medical history is significant for history of hypertension, history of COPD, history of osteoarthritis, history of HIV AIDS syndrome diagnosed in 1990 maintained on medications through infectious disease in [place], history of peripheral neuropathy, history of obstructive sleep apnea, history of degenerative disc disease, history of bipolar disorder, history of recurrent bilateral lower extremity cellulitis and history of tobacco use On 10/25/2021 patient is alert and oriented 3. Patient is status post cardiac catheterization which patient was found to have multivessel disease including 85% distal left main stenosis, proximal LAD 20-30% stenosis proximal circumflex 40-55% stenosis and 100% RCA stenosis with [id number] collaterals. Patient was evaluated by cardiothoracic surgery but appears that the plan at this time i s to proceed with catheterization and stent. Patient remains on IV heparin drip. At this time patient denies chest pain or shortness of breath. Patient denies nausea vomiting or diarrhea. Patient denies any urinary burning or frequency. On 10/26/2021 patient was seen and examined in the ICU he is alert and oriented in no apparent distress, last night he had episodes of worsening shortness of breath, he was transferred to intensive care unit, pulmonary consultation was requested, this morning he was evaluated by cardiology, and decision was made to proceed with high risk PCI Impella protected, input from Dr. Agudelo infectious disease reviewed will continue to follow closely. On 10/27/2021 patient was seen and examined in the ICU he is alert and oriented 3 in no apparent distress he is sitting up in a chair he denies any new episodes of chest pain he is still having shortness of breath with any activity he is maintained on high flow oxygen at 12 L/m otherwise he denies any complain ts there is no fever or chills no headache or dizziness no chest pain no cough no nausea or vomiting no abdominal pain no diarrhea and no urinary symptoms. Chest x-ray today reveals left lower lobe infiltrate and right small pleural effusion. On 10/28/2021 patient was seen and examined in the ICU he is alert and oriented 3 in no apparent distress, he is still requiring high flow oxygen at 15 L/m, his O2 sat duration is 88%, he was evaluated by pulmonary, and cardiology, CT angiogram of the chest was done and revealed right lower lobe medial segmental pulmonary embolism, and evidence of markedly dilated pulmonary artery measuring up to 4.1 cm. Patient was started on oral Xarelto 15 mg twice daily. Cardiology pulmonary and cardiothoracic surgery are following. On 10/29/2021 patient was seen and examined in the ICU he is alert and oriented in no apparent distress, he is still maintained on oxygen via high flow cannula at 15 L his pulse ox is 91% temperature 98.4 pulse 76 respiration 11 blood pressure 113/78 laboratory data reveals a white blood count of 14.6 hemoglobin 14.0 platelet count 220 sodium 1:30 potassium 4.5 chloride 93 CO2 31 BUN 17 creatinine 0.86 Objective - Vital Signs Vital signs: Vital Signs Temp 98.2 F 10/29/21 08:00 Pulse 72 10/29/21 09:00 Resp 16 10/29/21 09:00 BP 107/65 10/29/21 09:00 Pulse Ox 92 L 10/29/21 09:00 FiO2 65 10/29/21 05:00 Intake & Output 10/28/21 10/29/21 10/29/21 18:59 06:59 18:59 Intake Total 780 200 750 Output Total 2175 1810 350 Balance -1395 -1610 400 Weight 114.7 kg 115.5 kg Intake: Oral 780 200 750 Output: Urine 2175 1810 350 Other: Voiding Method Indwelling Catheter Indwelling Catheter # Voids 125 - Exam In general patient is alert and oriented x 3 in no distress HEENT head normocephalic and atraumatic Neck is supple no JVD no goiter no lymphadenopathy no carotid bruit Chest examination is clear to auscultation no crackles no wheezing Cardiac exam reveals regular heart sounds S1 and S2 no gallops no murmurs Abdomen is soft nontender no organomegaly with normal bowel sounds Extremity exam reveals no edema no cyanosis or clubbing Neurological examination reveals no gross focal deficits - Labs CBC & Chem 7: 10/29/21 08:21 10/29/21 08:21 Labs: Abnormal Lab Results - Last 24 Hours (Table) 10/25/21 10/28/21 10/29/21 Range/Units 17:05 07:59 00:06 WBC (3.8-10.6) k/uL Neutrophils # (1.3-7.7) k/uL Sodium 128 L (137-145) mmol/L Chloride 92 L (98-107) mmol/L Carbon Dioxide 32 H (22-30) mmol/L Glucose 111 H (74-99) mg/dL AST (17-59) U/L ALT (4-49) U/L Procalcitonin 1.13 H (0.02-0.09) ng/mL T-Suppressor Cells 1196 H (190-832) cell/ul CD4/CD8 Ratio 0.9 L (1.0-3.7) % CD8 Suppressor 46 H (9-37) % 10/29/21 10/29/21 Range/Units 08:21 08:21 WBC 14.6 H (3.8-10.6) k/uL Neutrophils # 12.1 H (1.3-7.7) k/uL Sodium 130 L (137-145) mmol/L Chloride 93 L (98-107) mmol/L Carbon Dioxide 31 H (22-30) mmol/L Glucose 134 H (74-99) mg/dL AST 88 H (17-59) U/L ALT 53 H (4-49) U/L Procalcitonin (0.02-0.09) ng/mL T-Suppressor Cells (190-832) cell/ul CD4/CD8 Ratio (1.0-3.7) % CD8 Suppressor (9-37) % Assessment and Plan Plan: Coronary artery disease with multivessel involvement. Post catheterization which was found to have left main stenosis of 85%, proximal RCA stenosis 100%, proximal LAD 20-30% stenosis patient was evaluated cardiothoracic surgery. Patient underwent Impella protected, rotational atherectomy, of the left main yesterday Underlying history of hypertension Underlying history of COPD Underlying history of HIV AIDS syndrome Underlying history of osteoarthritis Underlying history of degenerative disc disease Underlying history of bipolar disorder Underlying history of anxiety with panic disorder Underlying history of continued tobacco use Patient remains on Xarelt 15 mg bid Patient remains on Lasix, lisinopril, Plavix, and metoprolol Cardiology and cardiothoracic surgery are following Pulmonary critical care following Labs have been ordered
[2021-10-29] MEDS: ATORVASTATIN 40 MG TAB PO SCH (20:13)
[2021-10-29] MEDS: lisinopriL 10 MG TAB PO SCH (20:14)
[2021-10-29] MEDS: Emtricitabine/Tenofov Alafenam [Descovy 200-25 Mg Tablet] PO SCH (20:16)
[2021-10-29] MEDS: MORPHINE SULFATE 4 MG/ML SYRINGE IVP PRN (20:19)
[2021-10-29 21:05] LABS: Glucose,Whole Blood 253 mg/dL (75-99)
[2021-10-29] MEDS: INSULIN ASPART (NovoLOG) 100 UNIT/ML VIAL SQ SCH (21:09)
[2021-10-29] MEDS: SODIUM CHLORIDE 0.9% 500 ML 500 ML IV SCH (22:01)
[2021-10-29] MEDS: ALPRAZolam 0.25 MG TAB PO PRN (23:30)
[2021-10-30] MEDS: methylPREDNISolone SOD SUCCI 125 MG/2 ML VIAL IV SCH ×4 (04:00→21:33)
[2021-10-30] MEDS: LEVOTHYROXINE 25 MCG TAB PO SCH (06:09)
[2021-10-30 06:45] LABS: Glucose,Whole Blood 173 mg/dL (75-99)
[2021-10-30] MEDS: INSULIN ASPART (NovoLOG) 100 UNIT/ML VIAL SQ SCH ×4 (06:54→21:29)
[2021-10-30 07:33] LABS: Basophils % (A) 0 %; Eosinophils % (A) 0 %; HCT 44.9 % (39.0-53.0); HGB 13.9 gm/dL (13.0-17.5); Lymphocytes # (A) 0.5 k/uL (1.0-4.8); Lymphocytes % (A) 3 %; MCH 28.6 pg (25.0-35.0); MCHC 30.9 g/dL (31.0-37.0); MCV 92.4 fL (80.0-100.0); Monocytes # (A) 0.4 k/uL (0-1.0); Monocytes % (A) 2 %; Neutrophils # (A) 15.6 k/uL (1.3-7.7); Neutrophils % (A) 94 %; Platelet Count 274 k/uL (150-450); RBC 4.86 m/uL (4.30-5.90); WBC 16.5 k/uL (3.8-10.6)
[2021-10-30 07:54] LABS: African American GFR (CKD) >90 (>60 ml/min/1.73 sqM); Anion Gap 6 mmol/L; Blood Urea Nitrogen 15 mg/dL (9-20); Carbon Dioxide 30 mmol/L (22-30); Chloride 96 mmol/L (98-107); Glucose 165 mg/dL (74-99); Magnesium 2.2 mg/dL (1.6-2.3); Non-African American GFR(CKD) >90 (>60 ml/min/1.73 sqM); Potassium 4.5 mmol/L (3.5-5.1); Sodium 132 mmol/L (137-145)
[2021-10-30] MEDS: IPRATROPIUM-ALBUTEROL 3 ML NEB INHALATION SCH ×4 (07:58→21:48)
[2021-10-30] MEDS: BUDESONIDE 1 MG/2 ML NEBU INHALATION SCH ×2 (07:59→21:48)
[2021-10-30] MEDS: FORMOTEROL FUMARATE 20 MCG/2 ML NEBU INHALATION SCH ×2 (07:59→21:48)
[2021-10-30] MEDS: BACLOFEN 10 MG TAB PO SCH ×4 (08:59→21:57)
[2021-10-30] MEDS: ASPIRIN 81 MG PO SCH (08:59)
[2021-10-30] MEDS: MORPHINE SULFATE IR 15 MG TABLET PO SCH ×4 (09:00→21:57)
[2021-10-30] MEDS: CLOPIDOGREL 75 MG TAB PO SCH (09:00)
[2021-10-30] MEDS: LORATADINE 10 MG TAB PO SCH (09:00)
[2021-10-30] MEDS: CITALOPRAM HYDROBROMIDE 20 MG TAB PO SCH (09:00)
[2021-10-30] MEDS: buPROPion XL 300 MG TAB.ER.24H PO SCH (09:00)
[2021-10-30] MEDS: DOCUSATE 100 MG CAP PO SCH (09:00)
[2021-10-30] MEDS: GABAPENTIN 400 MG CAP PO SCH ×3 (09:00→21:57)
[2021-10-30] MEDS: LEVOFLOXACIN 500 MG TAB PO SCH (09:01)
[2021-10-30] MEDS: RIVAROXABAN 15 MG TAB PO SCH ×2 (09:01→21:33)
[2021-10-30] MEDS: FUROSEMIDE 40 MG TAB PO SCH (09:02)
[2021-10-30] MEDS: METOPROLOL SUCCINATE (ER) 25 MG TAB.ER.24H PO SCH (09:02)
[2021-10-30] MEDS: guaiFENesin-DM 600/30MG 1 EACH TAB.ER.12H PO SCH ×2 (09:02→21:29)
--- NOTE | 2021-10-30 09:05 | XR ---
EXAMINATION TYPE: XR chest 1V portable DATE OF EXAM: 10/30/2021 COMPARISON: NONE HISTORY: Shortness of breath TECHNIQUE: Single frontal view of the chest is obtained. FINDINGS: Exam limited by positioning and reduced inspiration. Bilateral infiltrates are stable. Hea rt size stable. No obvious pneumothorax. Small bilateral pleural effusions. Hypertrophic change of th e spine. IMPRESSION: Stable bilateral infiltrates.
--- NOTE | 2021-10-30 09:07 | P.PN ---
Subjective Progress Note Date: 10/30/21 On 10/28/2021, the patient is being seen for a follow-up. 61-year-old male patient with known history of COPD, previous HIV from 1990, hypertension, acid reflux, hypothyroidism and chronic anxiety/depression. The patient also has a underlying coronary artery disease and the patient had an emboli-assisted PCI and stenting of the LAD. The patient also had acute CVA of the circumflex vessel and atherectomy of the left main. For now, the patient is doing well. Since yesterday on over the past 24-48 hours, there is a progressive increase in the patient's oxygen requirement and earlier today the patient was up to 15 L of oxygen by nasal cannula with a pulse ox of 90-91%. On examination, the patient had significant diminished breath sounds bilaterally. The puncture sites have been stable and there is no evidence of any bleeding or hematoma formation. The patient adequate pedal pulses lower extremity is bilaterally. No major respiratory distress at this point in time. The patient is free of any chest pain. The blood work showing a white second of 12.6 and hemoglobin 15.6 and a platelet count of 196. Rezulin electrodes are all within normal limits. The patient received a dose of Lasix today 40 mg IV push and the fluid balance is negative at least 4.6 L as the patient diurese aggressively following a Lasix dose. Ordered a CT angiogram to evaluate the ongoing hypoxemia. 10/29/20212021, the patient is being seen for a follow-up. As part of further investigation for his ongoing hypoxemia, the patient underwent a CT angiogram of the chest. I was not convinced that the patient had a pulmonary embolism. Nevertheless, based on the radiologist's report, there is a segmental filling defect on the right upper lobe and based on that the patient was started on anticoagulation with Xarelto. Is currently receiving Xarelto 15 mg twice a day. The same time, the CAT scan showed extensive bilateral emphysematous changes and some atelectasis in lung bases which probably is one of the main contributing factors for his ongoing hypoxemia along with a component of fluid. He was given diuretics yesterday Lasix 40 mg IV and his overall fluid balance is been -3 L over the past 24 hours. The patient continues to produce excellent amount of urine output. He remains on 15 L of O2 nasal cannula. He has a Overton catheter in place. He continues to have adequate diuresis. In terms of his labs, there are still pending from this morning. Sodium level that we have is at 128, BUN is at 18 with a creatinine of 0.9 and a serum bicarb is at 32. The patient is awake and alert. He has been COPD. He has previous history of HIV. He has hypertension, acid reflux, hypothyroidism and chronic anxiety/depression. He is also obese. The pro calcitonin level is at 1.13 10/30/2021, the patient remains hypoxic and is currently at 15 L nasal cannula with a pulse ox of 80%. At the same time, the patient is utilizing a BiPAP overnight at a pressure of 12/5 cm of water. We'll continue to diurese this patient. He remains on IV Lasix. Fluid balance has been -3.7 L over the past 24 hours. The patient as such as demonstrated excellent diuresis. CT abdomen chest was done. There was a segmental filling defects in the right upper lobe pulmonary artery branch and the patient is currently on Xarelto. Nevertheless, the clot burden is very small and does not explain the patient's ongoing hypoxemia. He does have underlying COPD which is advanced. He also has a component of fluid overload. The chest x-ray from today shows effusion/consolidation of the left lung base. Upper lobes are relatively clear. The patient denies having any chest pain. No altered mentation. His pro calcitonin level was at 1.13 and the patient was started on empiric antibiotic coverage with Levaquin. Meanwhile, the patient remains on Levaquin as an empiric antibiotic coverage, he is also on bronchodilators and IV Solu-Medrol. He is tolerating his diet. No other significant events otherwise for now. White cell count today's at 16.5. Hemoglobin is stable at 13.9. Electrolytes are stable and sodium is at 132, BUN is at 15 with a creatinine of 0.8, serum bicarb is at 30. Troponin level is at 0.021. Objective - Vital Signs Vital signs: Vital Signs Temp 97.1 F L 10/30/21 04:00 Pulse 77 10/30/21 08:17 Resp 11 L 10/30/21 08:00 BP 115/73 10/30/21 08:00 Pulse Ox 92 L 10/30/21 08:00 FiO2 80 10/30/21 08:00 Intake & Output 10/29/21 10/30/21 10/30/21 18:59 06:59 18:59 Intake Total 1360 905 20 Output Total 2930 3080 110 Balance -7684 -9585 -90 Weight 116.2 kg Intake: IV 200 240 20 Magnesium Sulfate-D5w Pmx 200 1 gm In Dextrose/Water 1 100ml.bag @ 100 mls/hr IVPB Q1H [facility] Rx#: [id number] Sodium Chloride 0.9% 500 240 20 ml 500 ml @ 20 mls/hr IV .Q24H [facility] Rx#:[id number] Intake, IV Titration 40 Amount Sodium Chloride 0.9% 1, 20 000 ml @ 0 mls/hr IV .[facility] Rx#:[id number] Sodium Chloride 0.9% 500 20 ml 500 ml @ 20 mls/hr IV .Q24H [facility] Rx#:[id number] Oral 1120 425 Tube Feeding 240 Output: Urine 2930 3080 110 Other: Voiding Method Indwelling Catheter Indwelling Catheter - Exam GENERAL EXAM: Awake, alert pleasant 61-year-old male patient, on 13 L high flow nasal cannula, sitting up in a chair at the bedside, comfortable in no apparent distress. HEAD: Normocephalic. EYES: Normal reaction of pupils, equal size. NOSE: Clear with pink turbinates. THROAT: No erythema or exudates. NECK: No masses, no JVD. CHEST: No chest wall deformity. LUNGS: Equal air entry with no crackles, wheeze, rhonchi or dullness. CVS: S1 and S2 normal with no audible murmur, regular rhythm. ABDOMEN: No hepatosplenomegaly, normal bowel sounds, no guarding or rigidity. SPINE: No scoliosis or deformity SKIN: No rashes CENTRAL NERVOUS SYSTEM: No focal deficits, tone is normal in all 4 extremities. EXTREMITIES: There is no peripheral edema. No clubbing, no cyanosis. P eripheral pulses are intact. - Labs CBC & Chem 7: 10/30/21 06:46 10/30/21 06:46 Labs: Abnormal Lab Results - Last 24 Hours (Table) 10/29/21 10/29/21 10/30/21 Range/Units 08:21 21:04 06:44 WBC (3.8-10.6) k/uL MCHC (31.0-37.0) g/dL Neutrophils # (1.3-7.7) k/uL Lymphocytes # (1.0-4.8) k/uL Sodium 130 L (137-145) mmol/L Chloride 93 L (98-107) mmol/L Carbon Dioxide 31 H (22-30) mmol/L Glucose 134 H (74-99) mg/dL POC Glucose (mg/dL) 253 H 173 H (75-99) mg/dL AST 88 H (17-59) U/L ALT 53 H (4-49) U/L 10/30/21 10/30/21 Range/Units 06:46 06:46 WBC 16.5 H (3.8-10.6) k/uL MCHC 30.9 L (31.0-37.0) g/dL Neutrophils # 15.6 H (1.3-7.7) k/uL Lymphocytes # 0.5 L (1.0-4.8) k/uL Sodium 132 L (137-145) mmol/L Chloride 96 L (98-107) mmol/L Carbon Dioxide (22-30) mmol/L Glucose 165 H (74-99) mg/dL POC Glucose (mg/dL) (75-99) mg/dL AST (17-59) U/L ALT (4-49) U/L Assessment and Plan Plan: Coronary artery disease including left main stenosis. Status post Impella protected PCI with stenting to the left main, rotational atherectomy left main, PTBA to the circumflex, balloon to have been out of the left femoral access site secondary to failed Perclose performed on 10/26/2021, subsequent intervention without other Perclose and from stop with control of the puncture sites.. The patient has a normal echocardiogram with normal LV function, no valvular heart disease or pulmonary hypertension. The patient is free of any chest pain, was being diuresed with IV Lasix with an excellent negative fluid balance and currently is on oral Lasix in addition to his aspirin, Plavix, beta blockers in the form of metoprolol XL 25 mg by mouth daily, and Zestril. Acute hypoxemic respiratory failure secondary to suspected acute COPD exacerbat ion overnight, the patient was in a BiPAP at a pressure of 12/5 cm of water. Currently off the BiPAP and the patient is currently on oxygen at 13 L with a pulse ox of 89%. No convincing evidence of pulmonary embolism. Based on the radiologist's report that showed segmental filling defect in the right lower lobe, the patient was started on Xarelto. The patient is also being treated for COPD exacerbation and he is being gradually diuresed. Shortness of breath secondary to above Chronic and ongoing tobacco dependence, chest x-ray from today shows stable bilateral pleural effusions, no acute abnormalities Chronic obstructive pulmonary disease with an FEV1 value 1.33 L or 48% of predicted History of HIV History of anxiety/depression History of hypertension Hypothyroidism Obesity Plan: Give the patient IV Lasix 40 mg IV twice a day. The patient continues to diurese effectively. We'll optimize his volume status and hopefully this will improve his oxygenation. He remains on 13 L of O2 nasal cannula Continue anticoagulation with Xarelto 15 mg twice a day for 3 weeks and following that 20 mg by mouth daily Continue the patient IV Solu-Medrol to optimize COPD Continue bronchodilators Results of the CTA of the chest was noted The patient is still on 13 L of oxygen by nasal cannula, we'll gradually wean Continue BiPAP overnight at a pressure of 12/5 cm of water Incentive spirometer Mucinex DM I was made aware that the patient did not use oxygen prior to him being admitted to the hospital. Repeat pro calcitonin level as there is no convincing evidence of pneumonia. Continue Levaquin as an empiric antibiotic coverage. Chest x-ray from today was noted Regulatory Leader on the case and we'll continue to follow make further recommendations based on his progress.
--- NOTE | 2021-10-30 09:38 | CDI ---
Documentation Clarification Form Date: 10/30/2021 08:49:32 AM From: Laura Enamorado RN, CCDS Admit Date: 10/25/2021 01:40:00 PM Patient Name: Jack Luna Visit Number: [id number] Discharge Date: ATTENTION: The Clinical Documentation Specialists (CDI) and [facility] Coding Staff appreciate your assistance in clarifying documentation. Please respond to the clarification below the line at the bottom and electronically sign. The CDI & [facility] Coding staff will review the response and follow-up if needed. Please note: Queries are made part of the Legal Health Record. If you have any questions, please contact the author of this message via ITS. Dr. Richard Solomon Right lower lobe medial segmental pulmonary embolism is documented in the cardiology progress note on 10/29/21 and patient had a Left coronary angiography, PCI KAYLIN x2, with Impella CP support, balloon angioplasty circumflex, rational artherectomy left main, balloon tamponade of left femoral access site secondary to failure of Perclose, IVUS left main. Additional clarification is requested regarding the relationship, if any, that exists between the diagnosis and the procedure. Patients Admitting Diagnosis: Unstable angina Post-Operative Diagnosis: CAD, including 85-95 % distal left main stenosis Procedure performed: Left coronary angiography, PCI distal left main with a 5.0 x 12mm Xience KAYLIN with Impella CP support, balloon angioplasty circumflex with a 2.5 x 12mm balloon, rotational atherectomy left main, balloon tamponade of left femoral access site secondary to failed Perclose, IVUS left main History/Risk Factors: CAD, COPD, Hypertension HIV Clinical Indicators: [id number] admitted with chest pain. 10/24/21 left heart catheterization found coronary artery disease including 85 % distal left main stenosis, proximal LAD 20-30 % stenosis proximal circumflex 40-50% stenosis and 100 % RCA stenosis with left-to right collaterals. On 10/26 he had stenting of left main and PTBA of circumflex. 10/28 He had progressive increase in oxygen requirement and was up to 15/L of oxygen by NC with pulse ox of 90-91 %. 10/28 CTA: Right lower lobe medial segmental pulmonary embolism Treatment: ICU/Telemetry monitoring Monitor O2 Sat's (titrate), continue bronchodilators per orders, Incentive spirometer Xarelto 15 PO bid 10/28 - What relationship, if any, exists between the diagnosis of pulmonary embolism and the procedure? [ ] Pulmonary embolism is a complication of the procedure [ ] Pulmonary embolism an expected outcome of the surgical procedure [ ] Pulmonary embolism is related to patients co-morbid condition(s) of [insert co-morbid ds] & not a complication of the procedure [ X ] Other please specify _Pulmonary embolism in no way is associated with left heart catheterization and PCI. ___ [ ] Unable to determine (Template Last Revised: July 2020) MTDD
[2021-10-30] MEDS: INTELENCE 200 MG PO SCH ×2 (09:46→21:56)
[2021-10-30] MEDS: NON FORMULARY DRUG (Phentermine Hcl [Adipex-P] 37.5 MG Tablet) PO SCH (10:15)
[2021-10-30] MEDS: MORPHINE SULFATE 4 MG/ML SYRINGE IVP PRN ×3 (10:24→22:59)
--- NOTE | 2021-10-30 10:25 | P.PN ---
Subjective Principal diagnosis: Patient is sleeping Blood pressure is a lot better than yesterday after stopping diltiazem and Dyazide He remains on IV Lasix 40 every 12 hourly He is also on lisinopril 10 mg daily in the evening Metoprolol succinate 25 mg in the morning On examination breath sounds are significantly reduced bilaterally with bi lateral rhonchi Blood pressure 124/76. His mercury and pulse rate 95-100 minutes a minute Plan Reevaluate tomorrow and consideration for increasing the dose of beta blockers and backing off on Lasix His BUN and creatinine remained stable but his sodium is low and white count is elevated Objective - Vital Signs Vital signs: Vital Signs Temp 98.2 F 10/30/21 09:00 Pulse 95 10/30/21 10:00 Resp 13 10/30/21 10:00 BP 119/80 10/30/21 10:00 Pulse Ox 94 L 10/30/21 10:00 FiO2 80 10/30/21 08:00 Intake & Output 10/29/21 10/30/21 10/30/21 18:59 06:59 18:59 Intake Total 1360 905 20 Output Total 2930 3080 275 Balance -3270 -2178 -106 Weight 116.2 kg Intake: IV 200 240 20 Magnesium Sulfate-D5w Pmx 200 1 gm In Dextrose/Water 1 100ml.bag @ 100 mls/hr IVPB Q1H [facility] Rx#: [id number] Sodium Chloride 0.9% 500 240 20 ml 500 ml @ 20 mls/hr IV .Q24H [facility] Rx#:[id number] Intake, IV Titration 40 Amount Sodium Chloride 0.9% 1, 20 000 ml @ 0 mls/hr IV .[facility] Rx#:[id number] Sodium Chloride 0.9% 500 20 ml 500 ml @ 20 mls/hr IV .Q24H [facility] Rx#:[id number] Oral 1120 425 Tube Feeding 240 Output: Urine 2930 3080 275 Other: Voiding Method Indwelling Catheter Indwelling Catheter - Labs CBC & Chem 7: 10/30/21 06:46 10/30/21 06:46 Labs: Abnormal Lab Results - Last 24 Hours (Table) 10/29/21 10/30/21 10/30/21 Range/Units 21:04 06:44 06:46 WBC (3.8-10.6) k/uL MCHC (31.0-37.0) g/dL Neutrophils # (1.3-7.7) k/uL Lymphocytes # (1.0-4.8) k/uL Sodium 132 L (137-145) mmol/L Chloride 96 L (98-107) mmol/L Glucose 165 H (74-99) mg/dL POC Glucose (mg/dL) 253 H 173 H (75-99) mg/dL 10/30/21 Range/Units 06:46 WBC 16.5 H (3.8-10.6) k/uL MCHC 30.9 L (31.0-37.0) g/dL Neutrophils # 15.6 H (1.3-7.7) k/uL Lymphocytes # 0.5 L (1.0-4.8) k/uL Sodium (137-145) mmol/L Chloride (98-107) mmol/L Glucose (74-99) mg/dL POC Glucose (mg/dL) (75-99) mg/dL
[2021-10-30 11:21] LABS: Glucose,Whole Blood 272 mg/dL (75-99)
[2021-10-30] MEDS: FUROSEMIDE 10 MG/ML 4 ML VIAL IV SCH ×2 (11:31→21:32)
--- NOTE | 2021-10-30 11:42 | P.PN ---
Subjective Progress Note Date: 10/30/21 Jack Luna, is a 61-year-old male who presented to [facility] emergency room with a chief complaint of chest pain He was evaluated in the emergency room vital examination on presentation r evealed a temperature of 98 pulse 94 respiration 20 blood pressure 143/91 pulse ox 94% on room air Laboratory data revealed a white blood count of 13.3 IMO globin 16.5 platelet count 258 sodium 131 potassium 4.2 chloride 96 CO2 28 BUN 17 creatinine 0.98 troponin level was 0.0-4 Testing in the emergency room revealed EKG done in the emergency room revealed sinus rhythm with first-degree AV block and incomplete right bundle branch block, chest x-ray done in the emergency room revealed evidence of cardiomegaly otherwise no abnormality seen. Patient was admitted to medical floor for further evaluation and treatment, cardiology consultation was requested. Past medical history is significant for history of hypertension, history of COPD, history of osteoarthritis, history of HIV AIDS syndrome diagnosed in 1990 maintained on medications through infectious disease in [place], history of peripheral neuropathy, history of obstructive sleep apnea, history of degenerative disc disease, history of bipolar disorder, history of recurrent bilateral lower extremity cellulitis and history of tobacco use On 10/25/2021 patient is alert and oriented 3. Patient is status post cardiac catheterization which patient was found to have multivessel disease including 85% distal left main stenosis, proximal LAD 20-30% stenosis proximal circumflex 40-55% stenosis and 100% RCA stenosis with [id number] collaterals. Patient was evaluated by cardiothoracic surgery but appears that the plan at this time i s to proceed with catheterization and stent. Patient remains on IV heparin drip. At this time patient denies chest pain or shortness of breath. Patient denies nausea vomiting or diarrhea. Patient denies any urinary burning or frequency. On 10/26/2021 patient was seen and examined in the ICU he is alert and oriented in no apparent distress, last night he had episodes of worsening shortness of breath, he was transferred to intensive care unit, pulmonary consultation was requested, this morning he was evaluated by cardiology, and decision was made to proceed with high risk PCI Impella protected, input from Dr. Agudelo infectious disease reviewed will continue to follow closely. On 10/27/2021 patient was seen and examined in the ICU he is alert and oriented 3 in no apparent distress he is sitting up in a chair he denies any new episodes of chest pain he is still having shortness of breath with any activity he is maintained on high flow oxygen at 12 L/m otherwise he denies any complain ts there is no fever or chills no headache or dizziness no chest pain no cough no nausea or vomiting no abdominal pain no diarrhea and no urinary symptoms. Chest x-ray today reveals left lower lobe infiltrate and right small pleural effusion. On 10/28/2021 patient was seen and examined in the ICU he is alert and oriented 3 in no apparent distress, he is still requiring high flow oxygen at 15 L/m, his O2 sat duration is 88%, he was evaluated by pulmonary, and cardiology, CT angiogram of the chest was done and revealed right lower lobe medial segmental pulmonary embolism, and evidence of markedly dilated pulmonary artery measuring up to 4.1 cm. Patient was started on oral Xarelto 15 mg twice daily. Cardiology pulmonary and cardiothoracic surgery are following. On 10/29/2021 patient was seen and examined in the ICU he is alert and oriented in no apparent distress, he is still maintained on oxygen via high flow cannula at 15 L his pulse ox is 91% temperature 98.4 pulse 76 respiration 11 blood pressure 113/78 laboratory data reveals a white blood count of 14.6 hemoglobin 14.0 platelet count 220 sodium 1:30 potassium 4.5 chloride 93 CO2 31 BUN 17 creatinine 0.86 On 10/30/2021 patient is alert and oriented remains in the intensive care unit oxygen demand to 6 L. Patient remains on IV steroids and Levaquin. Current vitals temp 98.2, heart rate 94, blood pressure 108/58 and oxygen saturation 94% on high flow 6 L critical care and cardiology services are following. Objective - Vital Signs Vital signs: Vital Signs Temp 98.2 F 10/30/21 09:00 Pulse 93 10/30/21 11:27 Resp 31 H 10/30/21 11:00 BP 108/58 10/30/21 11:00 Pulse Ox 94 L 10/30/21 11:00 FiO2 80 10/30/21 08:00 Intake & Output 10/29/21 10/30/21 10/30/21 18:59 06:59 18:59 Intake Total 1360 905 20 Output Total 2930 3080 350 Balance -1570 -5465 -003 Weight 116.2 kg Intake: IV 200 240 20 Magnesium Sulfate-D5w Pmx 200 1 gm In Dextrose/Water 1 100ml.bag @ 100 mls/hr IVPB Q1H [facility] Rx#: [id number] Sodium Chloride 0.9% 500 240 20 ml 500 ml @ 20 mls/hr IV .Q24H [facility] Rx#:[id number] Intake, IV Titration 40 Amount Sodium Chloride 0.9% 1, 20 000 ml @ 0 mls/hr IV .[facility] Rx#:[id number] Sodium Chloride 0.9% 500 20 ml 500 ml @ 20 mls/hr IV .Q24H [facility] Rx#:[id number] Oral 1120 425 Tube Feeding 240 Output: Urine 2930 3080 350 Other: Voiding Method Indwelling Catheter Indwelling Catheter Indwelling Catheter - Exam In general patient is alert and oriented x 3 in no distress HEENT head normocephalic and atraumatic Neck is supple no JVD no goiter no lymphadenopathy no carotid bruit Chest examination is clear to auscultation no crackles no wheezing Cardiac exam reveals regular heart sounds S1 and S2 no gallops no murmurs Abdomen is soft nontender no organomegaly with normal bowel sounds Extremity exam reveals no edema no cyanosis or clubbing Neurological examination reveals no gross focal deficits - Labs CBC & Chem 7: 10/30/21 06:46 10/30/21 06:46 Labs: Abnormal Lab Results - Last 24 Hours (Table) 10/29/21 10/30/21 10/30/21 Range/Units 21:04 06:44 06:46 WBC (3.8-10.6) k/uL MCHC (31.0-37.0) g/dL Neutrophils # (1.3-7.7) k/uL Lymphocytes # (1.0-4.8) k/uL Sodium 132 L (137-145) mmol/L Chloride 96 L (98-107) mmol/L Glucose 165 H (74-99) mg/dL POC Glucose (mg/dL) 253 H 173 H (75-99) mg/dL 10/30/21 10/30/21 Range/Units 06:46 11:19 WBC 16.5 H (3.8-10.6) k/uL MCHC 30.9 L (31.0-37.0) g/dL Neutrophils # 15.6 H (1.3-7.7) k/uL Lymphocytes # 0.5 L (1.0-4.8) k/uL Sodium (137-145) mmol/L Chloride (98-107) mmol/L Glucose (74-99) mg/dL POC Glucose (mg/dL) 272 H (75-99) mg/dL Assessment and Plan Plan: Coronary artery disease with multivessel involvement. Post catheterization w hich was found to have left main stenosis of 85%, proximal RCA stenosis 100%, proximal LAD 20-30% stenosis patient was evaluated cardiothoracic surgery. Patient underwent Impella protected, rotational atherectomy, of the left main yesterday Acute hypoxemia and respiratory failure secondary to acute COPD exacerbation Underlying history of hypertension Underlying history of COPD Underlying history of HIV AIDS syndrome Underlying history of osteoarthritis Underlying history of degenerative disc disease Underlying history of bipolar disorder Underlying history of anxiety with panic disorder Underlying history of continued tobacco use Patient remains in the intensive care unit Patient remains on Xarelto 15 mg bid Cardiology and pulmonary services are following Smaintained on IV steroids and antibiotic remains on IV Lasix Repeat labs ordered
[2021-10-30] MEDS: ACETAMINOPHEN TAB 325 MG TAB PO PRN (15:04)
[2021-10-30 16:26] LABS: Glucose,Whole Blood 133 mg/dL (75-99)
[2021-10-30] MEDS: IPRATROPIUM BROMIDE 0.06% NASAL SPRAY (15 ML) EA NOSTRIL SCH (21:00)
[2021-10-30 21:14] LABS: Glucose,Whole Blood 171 mg/dL (75-99)
[2021-10-30] MEDS: ATORVASTATIN 40 MG TAB PO SCH (21:31)
[2021-10-30] MEDS: Emtricitabine/Tenofov Alafenam [Descovy 200-25 Mg Tablet] PO SCH (21:31)
[2021-10-30] MEDS: lisinopriL 10 MG TAB PO SCH (21:33)
[2021-10-30] MEDS: traZODone HCL 50 MG TAB PO SCH (21:57)
[2021-10-30] MEDS: ALPRAZolam 0.25 MG TAB PO PRN (22:58)
[2021-10-31] MEDS: methylPREDNISolone SOD SUCCI 125 MG/2 ML VIAL IV SCH ×2 (02:57→15:34)
[2021-10-31] MEDS: MORPHINE SULFATE 4 MG/ML SYRINGE IVP PRN (04:13)
[2021-10-31] MEDS: BACLOFEN 10 MG TAB PO SCH ×4 (06:20→21:58)
[2021-10-31] MEDS: MORPHINE SULFATE IR 15 MG TABLET PO SCH ×4 (06:21→21:58)
[2021-10-31] MEDS: LEVOTHYROXINE 25 MCG TAB PO SCH (06:58)
[2021-10-31 07:02] LABS: Glucose,Whole Blood 149 mg/dL (75-99)
[2021-10-31] MEDS: INSULIN ASPART (NovoLOG) 100 UNIT/ML VIAL SQ SCH ×4 (07:12→20:58)
[2021-10-31] MEDS: BUDESONIDE 1 MG/2 ML NEBU INHALATION SCH ×2 (07:33→20:03)
[2021-10-31] MEDS: FORMOTEROL FUMARATE 20 MCG/2 ML NEBU INHALATION SCH ×2 (07:34→20:03)
[2021-10-31] MEDS: IPRATROPIUM-ALBUTEROL 3 ML NEB INHALATION SCH ×4 (07:34→20:03)
[2021-10-31] MEDS: SODIUM CHLORIDE 0.9% 500 ML 500 ML IV SCH ×2 (08:23→09:35)
[2021-10-31] MEDS: IPRATROPIUM BROMIDE 0.06% NASAL SPRAY (15 ML) EA NOSTRIL SCH ×3 (08:23→20:47)
--- NOTE | 2021-10-31 09:14 | P.PN ---
Subjective Progress Note Date: 10/31/21 The patient is a 61-year-old male who is currently admitted to the hospital with chest pain. The patient underwent stenting of the distal left main and balloon angioplasty of the circumflex with Impella support on 10/26/2021. Echocardiogram revealed preserved LV function. The patient recovered from his procedure well, however developed severe COPD exacerbation thereafter. Computed tomography scan of the chest showed possible pulmonary embolism, however this is questionable per pulmonology. Blood pressure medications have been adjusted for hypotension. The patient denies any chest pain or chest pressure. He is currently not labored in his breathing. He denies any heart racing or fluttering. GENERAL: Well-appearing, well-nourished and in no acute distress. NECK: Supple without JVD or thyromegaly. LUNGS: Breath sounds are severely diminished to auscultation bilaterally. Respiration equal and unlabored. No wheezes, rales or rhonchi. HEART: Regular rate and rhythm without murmurs, rubs or gallops. S1 and S2 heard. EXTREMITIES: Normal range of motion, no edema. No clubbing or cyanosis. Peripheral pulses intact and strong. VITALS: Blood pressure 111/70, pulse 79, SpO2 97% on 7 L high flow TELEMETRY: Sinus mechanism overnight IMPRESSION: Coronary artery disease, status post stenting of left main and PTBA of circumflex Acute exacerbation of COPD Pulmonary embolism, on novel anticoagulation Hypotension, improved Hyponatremia, discontinue Dyazide History of HIV PLAN: Consider transitioning back to oral Lasix, which is currently being managed by pulmonology. No further recommendations per cardiology I am dictating on behalf of Dr Franklin Kennedy's history/physical and assessmen t/plan. Objective - Vital Signs Vital signs: Vital Signs Temp 98.0 F 10/31/21 00:00 Pulse 81 10/31/21 07:58 Resp 12 10/31/21 06:00 BP 111/70 10/31/21 06:00 Pulse Ox 97 10/31/21 07:36 FiO2 50 10/31/21 00:26 Intake & Output 10/30/21 10/31/21 10/31/21 18:59 06:59 18:59 Intake Total 640 720 Output Total 9160 8223 250 Balance -1020 -3105 -250 Weight 116.2 kg Intake: IV 20 Sodium Chloride 0.9% 500 20 ml 500 ml @ 20 mls/hr IV .Q24H [facility] Rx#:[id number] Oral 620 720 Output: Urine 1660 3825 250 Other: Voiding Method Indwelling Catheter Indwelling Catheter - Labs CBC & Chem 7: 10/30/21 06:46 10/30/21 06:46 Labs: Abnormal Lab Results - Last 24 Hours (Table) 10/30/21 10/30/21 10/30/21 Range/Units 11:19 16:25 21:12 POC Glucose (mg/dL) 272 H 133 H 171 H (75-99) mg/dL 10/31/21 Range/Units 07:00 POC Glucose (mg/dL) 149 H (75-99) mg/dL
--- NOTE | 2021-10-31 09:34 | P.PN ---
Subjective Progress Note Date: 10/31/21 On 10/28/2021, the patient is being seen for a follow-up. 61-year-old male patient with known history of COPD, previous HIV from 1990, hypertension, acid reflux, hypothyroidism and chronic anxiety/depression. The patient also has a underlying coronary artery disease and the patient had an emboli-assisted PCI and stenting of the LAD. The patient also had acute CVA of the circumflex vessel and atherectomy of the left main. For now, the patient is doing well. Since yesterday on over the past 24-48 hours, there is a progressive increase in the patient's oxygen requirement and earlier today the patient was up to 15 L of oxygen by nasal cannula with a pulse ox of 90-91%. On examination, the patient had significant diminished breath sounds bilaterally. The puncture sites have been stable and there is no evidence of any bleeding or hematoma formation. The patient adequate pedal pulses lower extremity is bilaterally. No major respiratory distress at this point in time. The patient is free of any chest pain. The blood work showing a white second of 12.6 and hemoglobin 15.6 and a platelet count of 196. Rezulin electrodes are all within normal limits. The patient received a dose of Lasix today 40 mg IV push and the fluid balance is negative at least 4.6 L as the patient diurese aggressively following a Lasix dose. Ordered a CT angiogram to evaluate the ongoing hypoxemia. 10/29/20212021, the patient is being seen for a follow-up. As part of further investigation for his ongoing hypoxemia, the patient underwent a CT angiogram of the chest. I was not convinced that the patient had a pulmonary embolism. Nevertheless, based on the radiologist's report, there is a segmental filling defect on the right upper lobe and based on that the patient was started on anticoagulation with Xarelto. Is currently receiving Xarelto 15 mg twice a day. The same time, the CAT scan showed extensive bilateral emphysematous changes and some atelectasis in lung bases which probably is one of the main contributing factors for his ongoing hypoxemia along with a component of fluid. He was given diuretics yesterday Lasix 40 mg IV and his overall fluid balance is been -3 L over the past 24 hours. The patient continues to produce excellent amount of urine output. He remains on 15 L of O2 nasal cannula. He has a Overton catheter in place. He continues to have adequate diuresis. In terms of his labs, there are still pending from this morning. Sodium level that we have is at 128, BUN is at 18 with a creatinine of 0.9 and a serum bicarb is at 32. The patient is awake and alert. He has been COPD. He has previous history of HIV. He has hypertension, acid reflux, hypothyroidism and chronic anxiety/depression. He is also obese. The pro calcitonin level is at 1.13 10/30/2021, the patient remains hypoxic and is currently at 15 L nasal cannula with a pulse ox of 80%. At the same time, the patient is utilizing a BiPAP overnight at a pressure of 12/5 cm of water. We'll continue to diurese this patient. He remains on IV Lasix. Fluid balance has been -3.7 L over the past 24 hours. The patient as such as demonstrated excellent diuresis. CT abdomen chest was done. There was a segmental filling defects in the right upper lobe pulmonary artery branch and the patient is currently on Xarelto. Nevertheless, the clot burden is very small and does not explain the patient's ongoing hypoxemia. He does have underlying COPD which is advanced. He also has a component of fluid overload. The chest x-ray from today shows effusion/consolidation of the left lung base. Upper lobes are relatively clear. The patient denies having any chest pain. No altered mentation. His pro calcitonin level was at 1.13 and the patient was started on empiric antibiotic coverage with Levaquin. Meanwhile, the patient remains on Levaquin as an empiric antibiotic coverage, he is also on bronchodilators and IV Solu-Medrol. He is tolerating his diet. No other significant events otherwise for now. White cell count today's at 16.5. Hemoglobin is stable at 13.9. Electrolytes are stable and sodium is at 132, BUN is at 15 with a creatinine of 0.8, serum bicarb is at 30. Troponin level is at 0.021. 10/31/2021, the patient's oxidation is gradually improving. He was weaned off significantly and he got the appointment was on room air oxygen. Overnight, he became hypoxic again and he was placed on oxygen and currently is on 4 L O2 nasal cannula with a pulse ox of 94%. He has been diuresed aggressively with IV Lasix. The patient's fluid balance is -4.1 L for today and 3.7 L 40 yesterday. Overall, his diabetes more than 12 L which led to improvement in his oxygenation. At the same time, he has advanced COPD and aortic questionable pulmonary embolism for which she was started on Xarelto. The clot burden was extremely small. His pro calcitonin level was also slightly elevated at 1.13 and was started on Levaquin. His electrolytes for today are still pending for now. Labs need to be repeated. Meanwhile, in terms of diuretics, the patient is on Lasix 40 mg IV every 12 hours. He is resting comfortably in bed. He is utilizing the BiPAP at a pressure of 12/5 cm of water with an FiO2 of 50% overnight. He is on IV Solu-Medrol. He is on bronchodilators. No fever. No altered mentation. No other significant events otherwise for now. Objective - Vital Signs Vital signs: Vital Signs Temp 98.0 F 10/31/21 00:00 Pulse 81 10/31/21 07:58 Resp 12 10/31/21 06:00 BP 111/70 10/31/21 06:00 Pulse Ox 97 10/31/21 07:36 FiO2 50 10/31/21 00:26 Intake & Output 10/30/21 10/31/21 10/31/21 18:59 06:59 18:59 Intake Total 640 720 Output Total 1660 3825 450 Balance -1027 -7931 -809 Weight 116.2 kg Intake: IV 20 Sodium Chloride 0.9% 500 20 ml 500 ml @ 20 mls/hr IV .Q24H [facility] Rx#:[id number] Oral 620 720 Output: Urine 1660 3825 450 Other: Voiding Method Indwelling Catheter Indwelling Catheter - Exam GENERAL EXAM: Awake, alert pleasant 61-year-old male patient, on 4 L high flow nasal cannula, sitting up in a chair at the bedside, comfortable in no apparent distress. HEAD: Normocephalic. EYES: Normal reaction of pupils, equal size. NOSE: Clear with pink turbinates. THROAT: No erythema or exudates. NECK: No masses, no JVD. CHEST: No chest wall deformity. LUNGS: Equal air entry with no crackles, wheeze, rhonchi or dullness. CVS: S1 and S2 normal with no audible murmur, regular rhythm. ABDOMEN: No hepatosplenomegaly, normal bowel sounds, no guarding or rigidity. SPINE: No scoliosis or deformity SKIN: No rashes CENTRAL NERVOUS SYSTEM: No focal deficits, tone is normal in all 4 extremities. EXTREMITIES: There is no peripheral edema. No clubbing, no cyanosis. Peripheral pulses are intact. - Labs CBC & Chem 7: 10/30/21 06:46 10/30/21 06:46 Labs: Abnormal Lab Results - Last 24 Hours (Table) 10/30/21 10/30/21 10/30/21 Range/Units 11:19 16:25 21:12 POC Glucose (mg/dL) 272 H 133 H 171 H (75-99) mg/dL 10/31/21 Range/Units 07:00 POC Glucose (mg/dL) 149 H (75-99) mg/dL Assessment and Plan Plan: Coronary artery disease including left main stenosis. Status post Impella protected PCI with stenting to the left main, rotational atherectomy left main, PTBA to the circumflex, balloon to have been out of the left femoral access site secondary to failed Perclose performed on 10/26/2021, subsequent intervention without other Perclose and from stop with control of the puncture sites.. The patient has a normal echocardiogram with normal LV function, no valvular heart disease or pulmonary hypertension. The patient is free of any chest pain, was being diuresed with IV Lasix with an excellent negative fluid balance and currently is on oral Lasix in addition to his aspirin, Plavix, beta blockers in the form of metoprolol XL 25 mg by mouth daily, and Zestril. Acute hypoxemic respiratory failure secondary to suspected acute COPD exacerbation overnight, the patient was in a BiPAP at a pressure of 12/5 cm of water. Currently off the BiPAP and the patient is currently on oxygen at 4 L No convincing evidence of pulmonary embolism. Based on the radiologist's report that showed segmental filling defect in the right lower lobe, the patient was started on Xarelto. The patient is also being treated for COPD exacerbation and he is being gradually diuresed. The patient has improved significantly in terms of his oxygenation. We are the process of weaning down the FiO2 further. He may need long-term O2 therapy as the patient may potentially be chronic hypoxic on outpatient basis. Shortness of breath secondary to above Chronic and ongoing tobacco dependence, chest x-ray from today shows stable bilateral pleural effusions, no acute abnormalities Chronic obstructive pulmonary disease with an FEV1 value 1.33 L or 48% of predicted History of HIV History of anxiety/depression History of hypertension Hypothyroidism Obesity Plan: Repeat blood work and electrodes from today Continue IV Lasix for another 24 hours Diabetes Solu-Medrol and put the patient on prednisone burst taper Wean down the FiO2 further currently on 4 L BiPAP overnight Continue Xarelto Empiric antibiotic coverage with Levaquin Repeat pro calcitonin level as there is no convincing evidence of pneumonia. Continue Levaquin as an empiric antibiotic coverage. we'll continue to follow make further recommendations based on his progress.
[2021-10-31 10:04] LABS: ALT 65 U/L (4-49); AST 59 U/L (17-59); African American GFR (CKD) >90 (>60 ml/min/1.73 sqM); Albumin 3.8 g/dL (3.5-5.0); Alkaline Phosphatase 57 U/L (38-126); Anion Gap 7 mmol/L; Blood Urea Nitrogen 23 mg/dL (9-20); Carbon Dioxide 30 mmol/L (22-30); Chloride 92 mmol/L (98-107); Glucose 177 mg/dL (74-99); Non-African American GFR(CKD) >90 (>60 ml/min/1.73 sqM); Potassium 4.4 mmol/L (3.5-5.1); Sodium 129 mmol/L (137-145); Total Bilirubin 0.4 mg/dL (0.2-1.3); Total Protein 6.5 g/dL (6.3-8.2)
[2021-10-31] MEDS: buPROPion XL 300 MG TAB.ER.24H PO SCH (10:10)
[2021-10-31] MEDS: ASPIRIN 81 MG PO SCH (10:10)
[2021-10-31] MEDS: CITALOPRAM HYDROBROMIDE 20 MG TAB PO SCH (10:11)
[2021-10-31] MEDS: GABAPENTIN 400 MG CAP PO SCH ×3 (10:11→21:57)
[2021-10-31] MEDS: FUROSEMIDE 10 MG/ML 4 ML VIAL IV SCH ×2 (10:11→20:38)
[2021-10-31] MEDS: guaiFENesin-DM 600/30MG 1 EACH TAB.ER.12H PO SCH ×2 (10:11→20:44)
[2021-10-31] MEDS: CLOPIDOGREL 75 MG TAB PO SCH (10:11)
[2021-10-31] MEDS: DOCUSATE 100 MG CAP PO SCH (10:11)
[2021-10-31] MEDS: INTELENCE 200 MG PO SCH ×2 (10:12→20:47)
[2021-10-31] MEDS: LEVOFLOXACIN 500 MG TAB PO SCH (10:13)
[2021-10-31] MEDS: RIVAROXABAN 15 MG TAB PO SCH ×2 (10:13→20:44)
[2021-10-31] MEDS: LORATADINE 10 MG TAB PO SCH (10:13)
[2021-10-31] MEDS: NON FORMULARY DRUG (Phentermine Hcl [Adipex-P] 37.5 MG Tablet) PO SCH (10:16)
[2021-10-31 10:55] LABS: Basophils # (A) 0.1 k/uL (0-0.2); Basophils % (A) 0 %; Eosinophils % (A) 0 %; HCT 44.5 % (39.0-53.0); HGB 14.1 gm/dL (13.0-17.5); Lymphocytes # (A) 0.5 k/uL (1.0-4.8); Lymphocytes % (A) 3 %; MCH 28.9 pg (25.0-35.0); MCHC 31.7 g/dL (31.0-37.0); Mean Platelet Volume 7.6; Monocytes # (A) 0.9 k/uL (0-1.0); Monocytes % (A) 4 %; Neutrophils # (A) 18.6 k/uL (1.3-7.7); Neutrophils % (A) 92 %; Platelet Count 260 k/uL (150-450); RBC 4.89 m/uL (4.30-5.90); RDW 13.2 % (11.5-15.5); WBC 20.1 k/uL (3.8-10.6)
[2021-10-31 11:40] LABS: Glucose,Whole Blood 143 mg/dL (75-99)
[2021-10-31] MEDS: ACETAMINOPHEN TAB 325 MG TAB PO PRN (14:10)
[2021-10-31] MEDS: lisinopriL 10 MG TAB PO SCH ×3 (15:34→20:44)
[2021-10-31] MEDS: HEPARIN SOD,PORK IN 0.45% NACL 25,000 UNIT in 0.45% NACL 1 250ML.BAG IV SCH (15:35)
[2021-10-31 16:43] LABS: Glucose,Whole Blood 105 mg/dL (75-99)
--- NOTE | 2021-10-31 16:52 | P.PN ---
Subjective Progress Note Date: 10/31/21 Jack Luna, is a 61-year-old male who presented to [facility] emergency room with a chief complaint of chest pain He was evaluated in the emergency room vital examination on presentation r evealed a temperature of 98 pulse 94 respiration 20 blood pressure 143/91 pulse ox 94% on room air Laboratory data revealed a white blood count of 13.3 IMO globin 16.5 platelet count 258 sodium 131 potassium 4.2 chloride 96 CO2 28 BUN 17 creatinine 0.98 troponin level was 0.0-4 Testing in the emergency room revealed EKG done in the emergency room revealed sinus rhythm with first-degree AV block and incomplete right bundle branch block, chest x-ray done in the emergency room revealed evidence of cardiomegaly otherwise no abnormality seen. Patient was admitted to medical floor for further evaluation and treatment, cardiology consultation was requested. Past medical history is significant for history of hypertension, history of COPD, history of osteoarthritis, history of HIV AIDS syndrome diagnosed in 1990 maintained on medications through infectious disease in [place], history of peripheral neuropathy, history of obstructive sleep apnea, history of degenerative disc disease, history of bipolar disorder, history of recurrent bilateral lower extremity cellulitis and history of tobacco use On 10/25/2021 patient is alert and oriented 3. Patient is status post cardiac catheterization which patient was found to have multivessel disease including 85% distal left main stenosis, proximal LAD 20-30% stenosis proximal circumflex 40-55% stenosis and 100% RCA stenosis with [id number] collaterals. Patient was evaluated by cardiothoracic surgery but appears that the plan at this time i s to proceed with catheterization and stent. Patient remains on IV heparin drip. At this time patient denies chest pain or shortness of breath. Patient denies nausea vomiting or diarrhea. Patient denies any urinary burning or frequency. On 10/26/2021 patient was seen and examined in the ICU he is alert and oriented in no apparent distress, last night he had episodes of worsening shortness of breath, he was transferred to intensive care unit, pulmonary consultation was requested, this morning he was evaluated by cardiology, and decision was made to proceed with high risk PCI Impella protected, input from Dr. Agduelo infectious disease reviewed will continue to follow closely. On 10/27/2021 patient was seen and examined in the ICU he is alert and oriented 3 in no apparent distress he is sitting up in a chair he denies any new episodes of chest pain he is still having shortness of breath with any activity he is maintained on high flow oxygen at 12 L/m otherwise he denies any complain ts there is no fever or chills no headache or dizziness no chest pain no cough no nausea or vomiting no abdominal pain no diarrhea and no urinary symptoms. Chest x-ray today reveals left lower lobe infiltrate and right small pleural effusion. On 10/28/2021 patient was seen and examined in the ICU he is alert and oriented 3 in no apparent distress, he is still requiring high flow oxygen at 15 L/m, his O2 sat duration is 88%, he was evaluated by pulmonary, and cardiology, CT angiogram of the chest was done and revealed right lower lobe medial segmental pulmonary embolism, and evidence of markedly dilated pulmonary artery measuring up to 4.1 cm. Patient was started on oral Xarelto 15 mg twice daily. Cardiology pulmonary and cardiothoracic surgery are following. On 10/29/2021 patient was seen and examined in the ICU he is alert and oriented in no apparent distress, he is still maintained on oxygen via high flow cannula at 15 L his pulse ox is 91% temperature 98.4 pulse 76 respiration 11 blood pressure 113/78 laboratory data reveals a white blood count of 14.6 hemoglobin 14.0 platelet count 220 sodium 1:30 potassium 4.5 chloride 93 CO2 31 BUN 17 creatinine 0.86 On 10/30/2021 patient is alert and oriented remains in the intensive care unit oxygen demand to 6 L. Patient remains on IV steroids and Levaquin. Current vitals temp 98.2, heart rate 94, blood pressure 108/58 and oxygen saturation 94% on high flow 6 L critical care and cardiology services are following. On 10/31/2021 patient was seen and examined in the ICU he is alert and oriented 3 in no apparent distress he is sitting up in a chair, vital examination reveals a temperature of 97.6 pulse 79 respiration 12 blood pressure 137/87 pulse ox 94% on 2 L nasal cannula, white blood count is 20.1 hemoglobin 14.1 mary kate telet count 260 sodium 129 potassium 4.4 chloride 92 CO2 30 BUN 23 creatinine 0.78 clinically patient is improving he will be transferred out of ICU he is maintained on DuoNeb updraft 4 times daily scheduled, he is also maintained on prednisone 40 mg daily, Xarelto 15 mg twice a day, and Lasix 40 mg IV twice daily, will continue to follow closely Objective - Vital Signs Vital signs: Vital Signs Temp 98.5 F 10/31/21 08:00 Pulse 79 10/31/21 15:27 Resp 10 L 10/31/21 14:00 BP 137/87 10/31/21 14:00 Pulse Ox 97 10/31/21 15:16 FiO2 50 10/31/21 00:26 Intake & Output 10/30/21 10/31/21 10/31/21 18:59 06:59 18:59 Intake Total 640 720 360 Output Total 1660 3825 1350 Balance -1020 -3105 -990 Weight 116.2 kg Intake: IV 20 Sodium Chloride 0.9% 500 20 ml 500 ml @ 20 mls/hr IV .Q24H [facility] Rx#:[id number] Oral 620 720 360 Output: Urine 1660 3825 1350 Other: Voiding Method Indwelling Catheter Indwelling Catheter Indwelling Catheter - Exam In general patient is alert and oriented x 3 in no distress HEENT head normocephalic and atraumatic Neck is supple no JVD no goiter no lymphadenopathy no carotid bruit Chest examination is clear to auscultation no crackles no wheezing Cardiac exam reveals regular heart sounds S1 and S2 no gallops no murmurs Abdomen is soft nontender no organomegaly with normal bowel sounds Extremity exam reveals no edema no cyanosis or clubbing Neurological examination reveals no gross focal deficits - Labs CBC & Chem 7: 10/31/21 09:32 10/31/21 09:32 Labs: Abnormal Lab Results - Last 24 Hours (Table) 10/30/21 10/31/21 10/31/21 Range/Units 21:12 07:00 09:32 WBC 20.1 H (3.8-10.6) k/uL Neutrophils # 18.6 H (1.3-7.7) k/uL Lymphocytes # 0.5 L (1.0-4.8) k/uL Sodium (137-145) mmol/L Chloride (98-107) mmol/L BUN (9-20) mg/dL Glucose (74-99) mg/dL POC Glucose (mg/dL) 171 H 149 H (75-99) mg/dL ALT (4-49) U/L 10/31/21 10/31/21 10/31/21 Range/Units 09:32 11:38 16:31 WBC (3.8-10.6) k/uL Neutrophils # (1.3-7.7) k/uL Lymphocytes # (1.0-4.8) k/uL Sodium 129 L (137-145) mmol/L Chloride 92 L (98-107) mmol/L BUN 23 H (9-20) mg/dL Glucose 177 H (74-99) mg/dL POC Glucose (mg/dL) 143 H 105 H (75-99) mg/dL ALT 65 H (4-49) U/L Assessment and Plan Plan: Coronary artery disease with multivessel involvement. Post catheterization which was found to have left main stenosis of 85%, proximal RCA stenosis 100%, proximal LAD 20-30% stenosis patient was evaluated cardiothoracic surgery. Patient underwent Impella protected, rotational atherectomy, of the left main yesterday Acute hypoxemia and respiratory failure secondary to acute COPD exacerbation Underlying history of hypertension Underlying history of COPD Underlying history of HIV AIDS syndrome Underlying history of osteoarthritis Underlying history of degenerative disc disease Underlying history of bipolar disorder Underlying history of anxiety with panic disorder Underlying history of continued tobacco use Patient remains in the intensive care unit Patient remains on Xarelto 15 mg bid Cardiology and pulmonary services are following Smaintained on IV steroids and antibiotic remains on IV Lasix Repeat labs ordered
[2021-10-31] MEDS: traZODone HCL 50 MG TAB PO SCH (20:44)
[2021-10-31] MEDS: ATORVASTATIN 40 MG TAB PO SCH (20:44)
[2021-10-31] MEDS: Emtricitabine/Tenofov Alafenam [Descovy 200-25 Mg Tablet] PO SCH (20:45)
[2021-10-31 21:07] LABS: Glucose,Whole Blood 159 mg/dL (75-99)
--- NOTE | 2021-10-31 22:28 | P.PN ---
Subjective Progress Note Date: 10/28/21 Principal diagnosis: HIV Patient is a 61-year-old male with a past medical history significant for HIV for many years for which the patient to follow with ID physician do mock presented to the hospital with chest pain has been diagnosed with multivessel disease and the patient is status post percutaneous cardiac intervention completed on 10/26/2021. On today's evaluation that is 10/28/2021, the patient remains to be afebrile, patient denies having any chest pain he is breathing more comfortably did have occasional cough no abdominal pain no diarrhea Objective - Vital Signs Vital signs: Vital Signs Temp 98.2 F 10/28/21 12:00 Pulse 76 10/28/21 12:00 Resp 9 L 10/28/21 12:00 BP 105/64 10/28/21 12:00 Pulse Ox 89 L 10/28/21 12:00 FiO2 14 10/28/21 08:00 Intake & Output 10/27/21 10/28/21 10/28/21 18:59 06:59 18:59 Intake Total 278.875 240 Output Total 3745 1100 1300 Balance -3466.125 -1100 -1060 Weight 114.7 kg 114.7 kg Intake: IV 220 Sodium Chloride 0.9% 1, 220 000 ml In Empty Bag 1 bag @ 1 ML/KG/HR 110.2 mls/ hr IV .Q9H5M [facility] Rx#: [id number] Intake, IV Titration 58.875 Amount Nitroglycerin-D5w Pmx 50 58.875 mg In Dextrose/Water 1 250ml.bag @ 5 MCG/MIN 1.5 mls/hr IV .Q24H [facility] Rx#: [id number] Oral 240 Output: Urine 3745 1100 1300 Other: Voiding Method Indwelling Catheter Indwelling Catheter Indwelling Catheter - Exam GENERAL DESCRIPTION: Middle-age male up in the chair in no distress RESPIRATORY SYSTEM: Unlabored breathing , decreased breath sounds at bases HEART: S1 S2 regular rate and rhythm , ABDOMEN: Soft , no tenderness EXTREMITIES: No edema feet - Labs CBC & Chem 7: 10/31/21 09:32 10/31/21 09:32 Labs: Abnormal Lab Results - Last 24 Hours (Table) 10/28/21 10/28/21 Range/Units 07:59 07:59 WBC 12.6 H (3.8-10.6) k/uL MCHC 29.7 L (31.0-37.0) g/dL Neutrophils # 10.0 H (1.3-7.7) k/uL Sodium 131 L (137-145) mmol/L Glucose 173 H (74-99) mg/dL AST 81 H (17-59) U/L Total Protein 5.9 L (6.3-8.2) g/dL Albumin 3.4 L (3.5-5.0) g/dL Assessment and Plan (1) HIV (human immunodeficiency virus infection) Current Visit: No Status: Acute Code(s): B20 - HUMAN IMMUNODEFICIENCY VIRUS [HIV] DISEASE SNOMED Code(s): 49704617 Plan: 1patient with HIV for many years for the patient has been following in [facility] with an ID physician however has not seen a physician in more than 18 m [facility] now and the patient mention did not have any blood work done, patient admitted to hospital with chest pain and has been diagnosed with multivessel disease. 2we will try to obtain his genotype of his ID physician and waiting for CD4 count and viral load.patient to continue with the Karuna and Natalia. 3-leukocytosis is more likely steroid effect and will be monitored closely Time with Patient: Less than 30
--- NOTE | 2021-10-31 22:29 | P.PN ---
Subjective Progress Note Date: 10/29/21 Principal diagnosis: HIV Patient is a 61-year-old male with a past medical history significant for HIV for many years for which the patient to follow with ID physician do mock presented to the hospital with chest pain has been diagnosed with multivessel disease and the patient is status post percutaneous cardiac intervention completed on 10/26/2021. On today's evaluation that is 10/29/2021, the patient denies any fever or chills, patient denies having any chest pain, the patient is breathing more comfortably did have occasional cough no abdominal pain no diarrhea Objective - Vital Signs Vital signs: Vital Signs Temp 98.2 F 10/29/21 08:00 Pulse 77 10/29/21 11:56 Resp 12 10/29/21 11:56 BP 121/73 10/29/21 11:00 Pulse Ox 93 L 10/29/21 11:00 FiO2 65 10/29/21 05:00 Intake & Output 10/28/21 10/29/21 10/29/21 18:59 06:59 18:59 Intake Total 780 200 750 Output Total 2175 1810 775 Balance -1395 -1610 -25 Weight 114.7 kg 115.5 kg Intake: Oral 780 200 750 Output: Urine 2175 1810 775 Other: Voiding Method Indwelling Catheter Indwelling Catheter Indwelling Catheter # Voids 125 - Exam GENERAL DESCRIPTION: Middle-age male up in the chair in no distress RESPIRATORY SYSTEM: Unlabored breathing , decreased breath sounds at bases HEART: S1 S2 regular rate and rhythm , ABDOMEN: Soft , no tenderness EXTREMITIES: No edema feet - Labs CBC & Chem 7: 10/31/21 09:32 10/31/21 09:32 Labs: Abnormal Lab Results - Last 24 Hours (Table) 10/25/21 10/28/21 10/29/21 Range/Units 17:05 07:59 00:06 WBC (3.8-10.6) k/uL Neutrophils # (1.3-7.7) k/uL Sodium 128 L (137-145) mmol/L Chloride 92 L (98-107) mmol/L Carbon Dioxide 32 H (22-30) mmol/L Glucose 111 H (74-99) mg/dL AST (17-59) U/L ALT (4-49) U/L Procalcitonin 1.13 H (0.02-0.09) ng/mL T-Suppressor Cells 1196 H (190-832) cell/ul CD4/CD8 Ratio 0.9 L (1.0-3.7) % CD8 Suppressor 46 H (9-37) % 10/29/21 10/29/21 Range/Units 08:21 08:21 WBC 14.6 H (3.8-10.6) k/uL Neutrophils # 12.1 H (1.3-7.7) k/uL Sodium 130 L (137-145) mmol/L Chloride 93 L (98-107) mmol/L Carbon Dioxide 31 H (22-30) mmol/L Glucose 134 H (74-99) mg/dL AST 88 H (17-59) U/L ALT 53 H (4-49) U/L Procalcitonin (0.02-0.09) ng/mL T-Suppressor Cells (190-832) cell/ul CD4/CD8 Ratio (1.0-3.7) % CD8 Suppressor (9-37) % Assessment and Plan (1) HIV (human immunodeficiency virus infection) Current Visit: No Status: Acute Code(s): B20 - HUMAN IMMUNODEFICIENCY VIRUS [HIV] DISEASE SNOMED Code(s): 70660904 Plan: 1patient with HIV for many years for the patient has been following in [facility] with an ID physician however has not seen a physician in more than 18 months now and the patient mention did not have any blood work done, patient admitted to hospital with chest pain and has been diagnosed with multivessel disease. 2as for his HIV,patient to continue with the Karuna and Natalia. Genotype could not be obtained from his ID physician 3-leukocytosis is more likely steroid effect , clinically not behaving as Pneumonia and will be monitored closely Time with Patient: Less than 30
--- NOTE | 2021-10-31 22:30 | P.PN ---
Subjective Progress Note Date: 10/30/21 Principal diagnosis: HIV Patient is a 61-year-old male with a past medical history significant for HIV for many years for which the patient to follow with ID physician do mock presented to the hospital with chest pain has been diagnosed with multivessel disease and the patient is status post percutaneous cardiac intervention completed on 10/26/2021. On today's evaluation that is 10/30/2021, the patient remains to be afebrile, patient denies having any chest pain, the patient is breathing more comfortably on nasal cannula oxygen, the patient did have occasional cough no abdominal pain no diarrhea Objective - Vital Signs Vital signs: Vital Signs Temp 97.9 F 10/30/21 12:00 Pulse 98 10/30/21 14:00 Resp 15 10/30/21 14:00 BP 113/71 10/30/21 14:00 Pulse Ox 91 L 10/30/21 14:00 FiO2 80 10/30/21 08:00 Intake & Output 10/29/21 10/30/21 10/30/21 18:59 06:59 18:59 Intake Total 1360 905 520 Output Total 2930 3080 980 Balance -1570 -2175 -460 Weight 116.2 kg Intake: IV 200 240 20 Magnesium Sulfate-D5w Pmx 200 1 gm In Dextrose/Water 1 100ml.bag @ 100 mls/hr IVPB Q1H [facility] Rx#: [id number] Sodium Chloride 0.9% 500 240 20 ml 500 ml @ 20 mls/hr IV .Q24H [facility] Rx#:[id number] Intake, IV Titration 40 Amount Sodium Chloride 0.9% 1, 20 000 ml @ 0 mls/hr IV .[facility] Rx#:[id number] Sodium Chloride 0.9% 500 20 ml 500 ml @ 20 mls/hr IV .Q24H [facility] Rx#:[id number] Oral 1120 425 500 Tube Feeding 240 Output: Urine 2930 3080 980 Other: Voiding Method Indwelling Catheter Indwelling Catheter Indwelling Catheter - Exam GENERAL DESCRIPTION: Middle-age male up in the chair in no distress RESPIRATORY SYSTEM: Unlabored breathing , decreased breath sounds at bases HEART: S1 S2 regular rate and rhythm , ABDOMEN: Soft , no tenderness EXTREMITIES: No edema feet - Labs CBC & Chem 7: 10/31/21 09:32 10/31/21 09:32 Labs: Abnormal Lab Results - Last 24 Hours (Table) 10/29/21 10/30/21 10/30/21 Range/Units 21:04 06:44 06:46 WBC (3.8-10.6) k/uL MCHC (31.0-37.0) g/dL Neutrophils # (1.3-7.7) k/uL Lymphocytes # (1.0-4.8) k/uL Sodium 132 L (137-145) mmol/L Chloride 96 L (98-107) mmol/L Glucose 165 H (74-99) mg/dL POC Glucose (mg/dL) 253 H 173 H (75-99) mg/dL 10/30/21 10/30/21 Range/Units 06:46 11:19 WBC 16.5 H (3.8-10.6) k/uL MCHC 30.9 L (31.0-37.0) g/dL Neutrophils # 15.6 H (1.3-7.7) k/uL Lymphocytes # 0.5 L (1.0-4.8) k/uL Sodium (137-145) mmol/L Chloride (98-107) mmol/L Glucose (74-99) mg/dL POC Glucose (mg/dL) 272 H (75-99) mg/dL Assessment and Plan (1) HIV (human immunodeficiency virus infection) Current Visit: No Status: Acute Code(s): B20 - HUMAN IMMUNODEFICIENCY VIRUS [HIV] DISEASE SNOMED Code(s): 86077343 Plan: 1patient with HIV for many years for the patient has been following in [facility] with an ID physician however has not seen a physician in more than 18 months now and the patient mention did not have any blood work done, patient admitted to hospital with chest pain and has been diagnosed with multivessel disease. 2as for his HIV which is well-controlled has patient CT of the white count is more than 1000,patient to continue with the Tivicay and Descovy. 3-leukocytosis is more likely steroid effect , clinically not behaving as Pneumonia Time with Patient: Less than 30
--- NOTE | 2021-10-31 22:32 | P.PN ---
Subjective Progress Note Date: 10/31/21 Principal diagnosis: HIV Patient is a 61-year-old male with a past medical history significant for HIV for many years for which the patient to follow with ID physician do mock presented to the hospital with chest pain has been diagnosed with multivessel disease and the patient is status post percutaneous cardiac intervention completed on 10/26/2021. On today's evaluation that is 10/31/2021, the patient denies any fever or chills, patient denies chest pain he is breathing more comfortably on nasal cannula oxygen, the patient did have occasional cough no abdominal pain no diarrhea Objective - Vital Signs Vital signs: Vital Signs Temp 98.5 F 10/31/21 08:00 Pulse 75 10/31/21 10:00 Resp 15 10/31/21 10:00 BP 116/71 10/31/21 10:00 Pulse Ox 93 L 10/31/21 10:00 FiO2 50 10/31/21 00:26 Intake & Output 10/30/21 10/31/21 10/31/21 18:59 06:59 18:59 Intake Total 640 720 360 Output Total 1660 3825 1350 Balance -1020 -3105 -990 Weight 116.2 kg Intake: IV 20 Sodium Chloride 0.9% 500 20 ml 500 ml @ 20 mls/hr IV .Q24H [facility] Rx#:[id number] Oral 620 720 360 Output: Urine 1660 3825 1350 Other: Voiding Method Indwelling Catheter Indwelling Catheter Indwelling Catheter - Exam GENERAL DESCRIPTION: Middle-age male up in the chair in no distress RESPIRATORY SYSTEM: Unlabored breathing , decreased breath sounds at bases HEART: S1 S2 regular rate and rhythm , ABDOMEN: Soft , no tenderness EXTREMITIES: No edema feet - Labs CBC & Chem 7: 10/31/21 09:32 10/31/21 09:32 Labs: Abnormal Lab Results - Last 24 Hours (Table) 10/30/21 10/30/21 10/31/21 Range/Units 16:25 21:12 07:00 WBC (3.8-10.6) k/uL Neutrophils # (1.3-7.7) k/uL Lymphocytes # (1.0-4.8) k/uL Sodium (137-145) mmol/L Chloride (98-107) mmol/L BUN (9-20) mg/dL Glucose (74-99) mg/dL POC Glucose (mg/dL) 133 H 171 H 149 H (75-99) mg/dL ALT (4-49) U/L 10/31/21 10/31/21 10/31/21 Range/Units 09:32 09:32 11:38 WBC 20.1 H (3.8-10.6) k/uL Neutrophils # 18.6 H (1.3-7.7) k/uL Lymphocytes # 0.5 L (1.0-4.8) k/uL Sodium 129 L (137-145) mmol/L Chloride 92 L (98-107) mmol/L BUN 23 H (9-20) mg/dL Glucose 177 H (74-99) mg/dL POC Glucose (mg/dL) 143 H (75-99) mg/dL ALT 65 H (4-49) U/L Assessment and Plan (1) HIV (human immunodeficiency virus infection) Current Visit: No Status: Acute Code(s): B20 - HUMAN IMMUNODEFICIENCY VIRUS [HIV] DISEASE SNOMED Code(s): 19365101 Plan: 1patient with HIV for many years for the patient has been following in [facility] with an ID physician however has not seen a physician in more than 18 months now and the patient mention did not have any blood work done, patient admitted to hospital with chest pain and has been diagnosed with multivessel disease. 2the patient HIV is well-controlled has patient CD4 count is more than 1000,patient to continue with the Tivicay and Descovy. 3-leukocytosis is more likely steroid effect , and will trend down as the Solu- Medrol has been discontinued
[2021-11-01] MEDS: ACETAMINOPHEN TAB 325 MG TAB PO PRN (04:54)
[2021-11-01 06:26] LABS: Glucose,Whole Blood 91 mg/dL (75-99)
[2021-11-01] MEDS: INSULIN ASPART (NovoLOG) 100 UNIT/ML VIAL SQ SCH ×3 (07:05→18:42)
[2021-11-01] MEDS: LEVOTHYROXINE 25 MCG TAB PO SCH (07:10)
[2021-11-01] MEDS: BUDESONIDE 1 MG/2 ML NEBU INHALATION SCH ×2 (08:24→20:29)
[2021-11-01] MEDS: IPRATROPIUM-ALBUTEROL 3 ML NEB INHALATION SCH ×4 (08:24→20:29)
[2021-11-01] MEDS: FORMOTEROL FUMARATE 20 MCG/2 ML NEBU INHALATION SCH ×2 (08:24→20:29)
--- NOTE | 2021-11-01 10:00 | P.PN ---
Subjective Progress Note Date: 11/01/21 Jack Luna, is a 61-year-old male who presented to [facility] emergency room with a chief complaint of chest pain He was evaluated in the emergency room vital examination on presentation r evealed a temperature of 98 pulse 94 respiration 20 blood pressure 143/91 pulse ox 94% on room air Laboratory data revealed a white blood count of 13.3 IMO globin 16.5 platelet count 258 sodium 131 potassium 4.2 chloride 96 CO2 28 BUN 17 creatinine 0.98 troponin level was 0.0-4 Testing in the emergency room revealed EKG done in the emergency room revealed sinus rhythm with first-degree AV block and incomplete right bundle branch block, chest x-ray done in the emergency room revealed evidence of cardiomegaly otherwise no abnormality seen. Patient was admitted to medical floor for further evaluation and treatment, cardiology consultation was requested. Past medical history is significant for history of hypertension, history of COPD, history of osteoarthritis, history of HIV AIDS syndrome diagnosed in 1990 maintained on medications through infectious disease in [place], history of peripheral neuropathy, history of obstructive sleep apnea, history of degenerative disc disease, history of bipolar disorder, history of recurrent bilateral lower extremity cellulitis and history of tobacco use On 10/25/2021 patient is alert and oriented 3. Patient is status post cardiac catheterization which patient was found to have multivessel disease including 85% distal left main stenosis, proximal LAD 20-30% stenosis proximal circumflex 40-55% stenosis and 100% RCA stenosis with [id number] collaterals. Patient was evaluated by cardiothoracic surgery but appears that the plan at this time i s to proceed with catheterization and stent. Patient remains on IV heparin drip. At this time patient denies chest pain or shortness of breath. Patient denies nausea vomiting or diarrhea. Patient denies any urinary burning or frequency. On 10/26/2021 patient was seen and examined in the ICU he is alert and oriented in no apparent distress, last night he had episodes of worsening shortness of breath, he was transferred to intensive care unit, pulmonary consultation was requested, this morning he was evaluated by cardiology, and decision was made to proceed with high risk PCI Impella protected, input from Dr. Agudelo infectious disease reviewed will continue to follow closely. On 10/27/2021 patient was seen and examined in the ICU he is alert and oriented 3 in no apparent distress he is sitting up in a chair he denies any new episodes of chest pain he is still having shortness of breath with any activity he is maintained on high flow oxygen at 12 L/m otherwise he denies any complain ts there is no fever or chills no headache or dizziness no chest pain no cough no nausea or vomiting no abdominal pain no diarrhea and no urinary symptoms. Chest x-ray today reveals left lower lobe infiltrate and right small pleural effusion. On 10/28/2021 patient was seen and examined in the ICU he is alert and oriented 3 in no apparent distress, he is still requiring high flow oxygen at 15 L/m, his O2 sat duration is 88%, he was evaluated by pulmonary, and cardiology, CT angiogram of the chest was done and revealed right lower lobe medial segmental pulmonary embolism, and evidence of markedly dilated pulmonary artery measuring up to 4.1 cm. Patient was started on oral Xarelto 15 mg twice daily. Cardiology pulmonary and cardiothoracic surgery are following. On 10/29/2021 patient was seen and examined in the ICU he is alert and oriented in no apparent distress, he is still maintained on oxygen via high flow cannula at 15 L his pulse ox is 91% temperature 98.4 pulse 76 respiration 11 blood pressure 113/78 laboratory data reveals a white blood count of 14.6 hemoglobin 14.0 platelet count 220 sodium 1:30 potassium 4.5 chloride 93 CO2 31 BUN 17 creatinine 0.86 On 10/30/2021 patient is alert and oriented remains in the intensive care unit oxygen demand to 6 L. Patient remains on IV steroids and Levaquin. Current vitals temp 98.2, heart rate 94, blood pressure 108/58 and oxygen saturation 94% on high flow 6 L critical care and cardiology services are following. On 10/31/2021 patient was seen and examined in the ICU he is alert and oriented 3 in no apparent distress he is sitting up in a chair, vital examination reveals a temperature of 97.6 pulse 79 respiration 12 blood pressure 137/87 pulse ox 94% on 2 L nasal cannula, white blood count is 20.1 hemoglobin 14.1 mary kate telet count 260 sodium 129 potassium 4.4 chloride 92 CO2 30 BUN 23 creatinine 0.78 clinically patient is improving he will be transferred out of ICU he is maintained on DuoNeb updraft 4 times daily scheduled, he is also maintained on prednisone 40 mg daily, Xarelto 15 mg twice a day, and Lasix 40 mg IV twice daily, will continue to follow closely On 11/01/2021 patient has been moved out of the intensive care unit currently resting on stepdown unit. Patient is alert and oriented 3 requesting pain medication. Patient remains on IV Lasix. Patient has been transitioned to oral steroids. Patient currently on 2 L. Patient complaining chronic pain. Patient denies chest pain. Patient denies nausea vomiting or diarrhea. Patient denies any urinary burning or frequency Objective - Vital Signs Vital signs: Vital Signs Temp 97.7 F 11/01/21 04:45 Pulse 66 11/01/21 04:45 Resp 20 11/01/21 04:45 BP 94/58 11/01/21 04:45 Pulse Ox 91 L 11/01/21 04:45 FiO2 50 10/31/21 00:26 Intake & Output 10/31/21 11/01/21 11/01/21 18:59 06:59 18:59 Intake Total 860 360 240 Output Total 2350 1500 Balance -1490 -1140 240 Intake: Oral 860 360 240 Output: Urine 2350 1500 Other: Voiding Method Indwelling Catheter Indwelling Catheter - Exam In general patient is alert and oriented x 3 in no distress HEENT head normocephalic and atraumatic Neck is supple no JVD no goiter no lymphadenopathy no carotid bruit Chest examination is clear to auscultation no crackles no wheezing Cardiac exam reveals regular heart sounds S1 and S2 no gallops no murmurs Abdomen is soft nontender no organomegaly with normal bowel sounds Extremity exam reveals no edema no cyanosis or clubbing Neurological examination reveals no gross focal deficits - Labs CBC & Chem 7: 10/31/21 09:32 10/31/21 09:32 Labs: Abnormal Lab Results - Last 24 Hours (Table) 10/31/21 10/31/21 10/31/21 Range/Units 09:32 09:32 11:38 WBC 20.1 H (3.8-10.6) k/uL Neutrophils # 18.6 H (1.3-7.7) k/uL Lymphocytes # 0.5 L (1.0-4.8) k/uL Sodium 129 L (137-145) mmol/L Chloride 92 L (98-107) mmol/L BUN 23 H (9-20) mg/dL Glucose 177 H (74-99) mg/dL POC Glucose (mg/dL) 143 H (75-99) mg/dL ALT 65 H (4-49) U/L 10/31/21 10/31/21 Range/Units 16:31 20:54 WBC (3.8-10.6) k/uL Neutrophils # (1.3-7.7) k/uL Lymphocytes # (1.0-4.8) k/uL Sodium (137-145) mmol/L Chloride (98-107) mmol/L BUN (9-20) mg/dL Glucose (74-99) mg/dL POC Glucose (mg/dL) 105 H 159 H (75-99) mg/dL ALT (4-49) U/L Assessment and Plan Plan: Coronary artery disease with multivessel involvement. Post catheterization which was found to have left main stenosis of 85%, proximal RCA stenosis 100%, proximal LAD 20-30% stenosis patient was evaluated cardiothoracic surgery. Pat ient underwent Impella protected, rotational atherectomy, of the left main yesterday Acute hypoxemia and respiratory failure secondary to acute COPD exacerbation Underlying history of hypertension Underlying history of COPD Underlying history of HIV AIDS syndrome Underlying history of osteoarthritis Underlying history of degenerative disc disease Underlying history of bipolar disorder Underlying history of anxiety with panic disorder Underlying history of continued tobacco use Patient has moved out of the intensive care unit Patient remains on Xarelto 15 mg bid Cardiology and pulmonary services are following Patient has been transitioned to by mouth steroids remains on IV Lasix Repeat labs ordered
[2021-11-01] MEDS: RIVAROXABAN 15 MG TAB PO SCH ×2 (10:49→21:21)
[2021-11-01] MEDS: guaiFENesin-DM 600/30MG 1 EACH TAB.ER.12H PO SCH ×2 (10:49→21:20)
[2021-11-01] MEDS: CLOPIDOGREL 75 MG TAB PO SCH (10:49)
[2021-11-01] MEDS: BACLOFEN 10 MG TAB PO SCH ×4 (10:49→22:22)
[2021-11-01] MEDS: GABAPENTIN 400 MG CAP PO SCH ×3 (10:50→22:23)
[2021-11-01] MEDS: ALPRAZolam 0.5 MG TAB PO PRN ×2 (10:50→18:40)
[2021-11-01] MEDS: ASPIRIN 81 MG PO SCH (10:50)
[2021-11-01] MEDS: LORATADINE 10 MG TAB PO SCH ×2 (10:50→10:51)
[2021-11-01] MEDS: LEVOFLOXACIN 500 MG TAB PO SCH (10:50)
[2021-11-01] MEDS: CITALOPRAM HYDROBROMIDE 20 MG TAB PO SCH (10:51)
[2021-11-01] MEDS: DOCUSATE 100 MG CAP PO SCH (10:51)
[2021-11-01] MEDS: buPROPion XL 300 MG TAB.ER.24H PO SCH (10:51)
[2021-11-01] MEDS: predniSONE 20 MG TAB PO SCH (10:52)
[2021-11-01] MEDS: MORPHINE SULFATE IR 15 MG TABLET PO SCH ×4 (10:52→22:22)
[2021-11-01] MEDS: METOPROLOL SUCCINATE (ER) 25 MG TAB.ER.24H PO SCH (10:52)
[2021-11-01] MEDS: SODIUM CHLORIDE 0.9% 500 ML 500 ML IV SCH (10:53)
[2021-11-01] MEDS: FUROSEMIDE 10 MG/ML 4 ML VIAL IV SCH (10:56)
[2021-11-01] MEDS: INTELENCE 200 MG PO SCH ×2 (10:56→21:22)
[2021-11-01] MEDS: IPRATROPIUM BROMIDE 0.06% NASAL SPRAY (15 ML) EA NOSTRIL SCH ×2 (10:57→21:23)
[2021-11-01] MEDS: NON FORMULARY DRUG (Phentermine Hcl [Adipex-P] 37.5 MG Tablet) PO SCH (11:00)
[2021-11-01 11:54] LABS: Glucose,Whole Blood 99 mg/dL (75-99)
[2021-11-01 12:32] LABS: Basophils # (A) 0.1 k/uL (0-0.2); Basophils % (A) 1 %; Eosinophils # (A) 0.1 k/uL (0-0.7); Eosinophils % (A) 1 %; HCT 48.5 % (39.0-53.0); HGB 15.6 gm/dL (13.0-17.5); Lymphocytes # (A) 1.9 k/uL (1.0-4.8); Lymphocytes % (A) 13 %; MCH 29.2 pg (25.0-35.0); MCHC 32.2 g/dL (31.0-37.0); MCV 90.5 fL (80.0-100.0); Mean Platelet Volume 6.9; Monocytes # (A) 1.4 k/uL (0-1.0); Monocytes % (A) 9 %; Neutrophils # (A) 10.6 k/uL (1.3-7.7); Neutrophils % (A) 73 %; Platelet Count 346 k/uL (150-450); RBC 5.36 m/uL (4.30-5.90); RDW 13.8 % (11.5-15.5); WBC 14.4 k/uL (3.8-10.6)
--- NOTE | 2021-11-01 12:37 | CONS ---
CONSULTATION DATE OF SERVICE: 10/24/21 I have seen, examined, and agree with the midlevel's findings. I met with this patient for 45 minutes during this consultation. ILEANA / PAMELA: [id number] / [phone]
--- NOTE | 2021-11-01 12:47 | P.PN ---
Subjective Progress Note Date: 11/01/21 On 10/28/2021, the patient is being seen for a follow-up. 61-year-old male patient with known history of COPD, previous HIV from 1990, hypertension, acid reflux, hypothyroidism and chronic anxiety/depression. The patient also has a underlying coronary artery disease and the patient had an emboli-assisted PCI and stenting of the LAD. The patient also had acute CVA of the circumflex vessel and atherectomy of the left main. For now, the patient is doing well. Since yesterday on over the past 24-48 hours, there is a progressive increase in the patient's oxygen requirement and earlier today the patient was up to 15 L of oxygen by nasal cannula with a pulse ox of 90-91%. On examination, the patient had significant diminished breath sounds bilaterally. The puncture sites have been stable and there is no evidence of any bleeding or hematoma formation. The patient adequate pedal pulses lower extremity is bilaterally. No major respiratory distress at this point in time. The patient is free of any chest pain. The blood work showing a white second of 12.6 and hemoglobin 15.6 and a platelet count of 196. Rezulin electrodes are all within normal limits. The patient received a dose of Lasix today 40 mg IV push and the fluid balance is negative at least 4.6 L as the patient diurese aggressively following a Lasix dose. Ordered a CT angiogram to evaluate the ongoing hypoxemia. 10/29/20212021, the patient is being seen for a follow-up. As part of further investigation for his ongoing hypoxemia, the patient underwent a CT angiogram of the chest. I was not convinced that the patient had a pulmonary embolism. Nevertheless, based on the radiologist's report, there is a segmental filling defect on the right upper lobe and based on that the patient was started on anticoagulation with Xarelto. Is currently receiving Xarelto 15 mg twice a day. The same time, the CAT scan showed extensive bilateral emphysematous changes and some atelectasis in lung bases which probably is one of the main contributing factors for his ongoing hypoxemia along with a component of fluid. He was given diuretics yesterday Lasix 40 mg IV and his overall fluid balance is been -3 L over the past 24 hours. The patient continues to produce excellent amount of urine output. He remains on 15 L of O2 nasal cannula. He has a Overton catheter in place. He continues to have adequate diuresis. In terms of his labs, there are still pending from this morning. Sodium level that we have is at 128, BUN is at 18 with a creatinine of 0.9 and a serum bicarb is at 32. The patient is awake and alert. He has been COPD. He has previous history of HIV. He has hypertension, acid reflux, hypothyroidism and chronic anxiety/depression. He is also obese. The pro calcitonin level is at 1.13 10/30/2021, the patient remains hypoxic and is currently at 15 L nasal cannula with a pulse ox of 80%. At the same time, the patient is utilizing a BiPAP overnight at a pressure of 12/5 cm of water. We'll continue to diurese this patient. He remains on IV Lasix. Fluid balance has been -3.7 L over the past 24 hours. The patient as such as demonstrated excellent diuresis. CT abdomen chest was done. There was a segmental filling defects in the right upper lobe pulmonary artery branch and the patient is currently on Xarelto. Nevertheless, the clot burden is very small and does not explain the patient's ongoing hypoxemia. He does have underlying COPD which is advanced. He also has a component of fluid overload. The chest x-ray from today shows effusion/consolidation of the left lung base. Upper lobes are relatively clear. The patient denies having any chest pain. No altered mentation. His pro calcitonin level was at 1.13 and the patient was started on empiric antibiotic coverage with Levaquin. Meanwhile, the patient remains on Levaquin as an empiric antibiotic coverage, he is also on bronchodilators and IV Solu-Medrol. He is tolerating his diet. No other significant events otherwise for now. White cell count today's at 16.5. Hemoglobin is stable at 13.9. Electrolytes are stable and sodium is at 132, BUN is at 15 with a creatinine of 0.8, serum bicarb is at 30. Troponin level is at 0.021. 10/31/2021, the patient's oxidation is gradually improving. He was weaned off significantly and he got the appointment was on room air oxygen. Overnight, he became hypoxic again and he was placed on oxygen and currently is on 4 L O2 nasal cannula with a pulse ox of 94%. He has been diuresed aggressively with IV Lasix. The patient's fluid balance is -4.1 L for today and 3.7 L 40 yesterday. Overall, his diabetes more than 12 L which led to improvement in his oxygenation. At the same time, he has advanced COPD and aortic questionable pulmonary embolism for which she was started on Xarelto. The clot burden was extremely small. His pro calcitonin level was also slightly elevated at 1.13 and was started on Levaquin. His electrolytes for today are still pending for now. Labs need to be repeated. Meanwhile, in terms of diuretics, the patient is on Lasix 40 mg IV every 12 hours. He is resting comfortably in bed. He is utilizing the BiPAP at a pressure of 12/5 cm of water with an FiO2 of 50% overnight. He is on IV Solu-Medrol. He is on bronchodilators. No fever. No altered mentation. No other significant events otherwise for now. then 2021, the patient is down to 2 L of oxygen by nasal cannula. the patient got transferred out of the intensive care unit. His COPD is optimize and the patient diuresed adequately with IV Lasix 40 mg every 12 hours. the fluid balance for now remains negative another 4.1 L 4 yesterday and 2.6 L since early this morning. Weight is down. Brester status is stable. The patient remains on bronchodilators. Is on a prednisone burst taper. the white cell count is 14.4 with a hemoglobin of 15.6. no angina. He is being evaluated by cardiothoracic surgery also. his pro-calcitonin level has dropped down to 0.03 and the patient was covered empirically with Levaquin. Objective - Vital Signs Vital signs: Vital Signs Temp 97.7 F 11/01/21 04:45 Pulse 66 11/01/21 11:37 Resp 20 11/01/21 04:45 BP 94/58 11/01/21 04:45 Pulse Ox 91 L 11/01/21 04:45 FiO2 50 10/31/21 00:26 Intake & Output 10/31/21 11/01/21 11/01/21 18:59 06:59 18:59 Intake Total 860 360 240 Output Total 2350 1500 Balance -1490 -1140 240 Intake: Oral 860 360 240 Output: Urine 2350 1500 Other: Voiding Method Indwelling Catheter Indwelling Catheter - Exam GENERAL EXAM: Awake, alert pleasant 61-year-old male patient, on 2 L high flow nasal cannula, sitting up in a chair at the bedside, comfortable in no apparent distress. HEAD: Normocephalic. EYES: Normal reaction of pupils, equal size. NOSE: Clear with pink turbinates. THROAT: No erythema or exudates. NECK: No masses, no JVD. CHEST: No chest wall deformity. LUNGS: Equal air entry with no crackles, wheeze, rhonchi or dullness. CVS: S1 and S2 normal with no audible murmur, regular rhythm. ABDOMEN: No hepatosplenomegaly, normal bowel sounds, no guarding or rigidity. SPINE: No scoliosis or deformity SKIN: No rashes CENTRAL NERVOUS SYSTEM: No focal deficits, tone is normal in all 4 extremities. EXTREMITIES: There is no peripheral edema. No clubbing, no cyanosis. Peripheral pulses are intact. - Labs CBC & Chem 7: 11/01/21 11:22 10/31/21 09:32 Labs: Abnormal Lab Results - Last 24 Hours (Table) 10/31/21 10/31/21 11/01/21 Range/Units 16:31 20:54 11:22 WBC 14.4 H (3.8-10.6) k/uL Neutrophils # 10.6 H (1.3-7.7) k/uL Monocytes # 1.4 H (0-1.0) k/uL POC Glucose (mg/dL) 105 H 159 H (75-99) mg/dL Assessment and Plan Plan: Coronary artery disease including left main stenosis. Status post Impella protected PCI with stenting to the left main, rotational atherectomy left main, PTBA to the circumflex, balloon to have been out of the left femoral access site secondary to failed Perclose performed on 10/26/2021, subsequent intervention without other Perclose and from stop with control of the puncture sites.. The patient has a normal echocardiogram with normal LV function, no valvular heart disease or pulmonary hypertension. The patient is free of any chest pain, was being diuresed with IV Lasix with an excellent negative fluid balance and curr ently is on oral Lasix in addition to his aspirin, Plavix, beta blockers in the form of metoprolol XL 25 mg by mouth daily, and Zestril. the patient will be further seen by cardiothoracic surgery Re: Triple-vessel disease. Awaiting the consultation. Acute hypoxemic respiratory failure secondary to suspected acute COPD exacerbation overnight, and fluid overload and the patient is improved and the patient is currently down to 2 L of oxygen by nasal cannula. Shortness of breath secondary to above Chronic and ongoing tobacco dependence, chest x-ray from today shows stable bilateral pleural effusions, no acute abnormalities Chronic obstructive pulmonary disease with an FEV1 value 1.33 L or 48% of predicted History of HIV History of anxiety/depression History of hypertension Hypothyroidism Obesity Plan: Continue Lasix and switch this patient oral Lasix 40 mg twice a day Continue prednisone burst taper The patient has been weaned down to 2 L of O2 nasal cannula Complete a total of 7 days of Levaquin and the patient's pro-calcitonin level is normalized Continue Xarelto Awaiting recommendations from cardiothoracic surgery , I believe he is a high risk for any surgical intervention at this point in time due to hiis advanced lung disease evaluate this patient for home O2 by checking the pulse ox at rest and during activity on room air and provide him a concentrated as needed He does have a home nebulizer. We'll continue to follow
[2021-11-01 12:59] LABS: Albumin 3.8 g/dL (3.5-5.0); Calcium 8.9 mg/dL (8.4-10.2); Potassium 4.2 mmol/L (3.5-5.1); Total Bilirubin 0.4 mg/dL (0.2-1.3); Total Protein 6.4 g/dL (6.3-8.2)
--- NOTE | 2021-11-01 13:24 | P.PN ---
Subjective This is a 61-year-old male with a past medical history significant for hypertension, HIV, anxiety, depression, and hypothyroidism. Patient follows in the office with Dr. Pineda. We have been asked to see the patient in consultation for chest pain. Patient presented to the ER with chest pain with radiation down his left arm and associated diaphoresis concerning for unstable angina. Most recent echocardiogram obtained in July 2021 revealed ejection fraction 50- 55% with moderate LVH Patient underwent cardiac catheterization with Dr. Solomon in 10/24/2021 which revealed Coronary artery disease including 85% distal left main stenosis, pr oximal LAD 20-30% stenosis, proximal circumflex 40-50% stenosis and 100% RCA stenosis with [id number] collaterals. Elevated Left sided filling pressures. Patient was evaluated by cardiothoracic surgery. Per CT surgery patient will be considered very high risk for surgical revascularization. This was discussed between Dr. Chance and Dr. Solomon. At this time they recommend continuing current medical treatment and better suited for left main stenting. 10/26/2021- The patient underwent stenting of the distal left main and balloon angioplasty of the circumflex with Impella support 11/01/2021 Patient seen and examined at bedside, no acute distress. Transferred out of the ICU yesterday. Sitting up at the edge of the bed. He denies any shortness of breath or chest pain. She is currently maintained on IV Lasix 40 mg twice a day. Patient with negative 4L fluid balance over the past 24 hours. Decrease in weight noted. Hypotensive today. Transitioned to PO Lasix 40mg BID He is also maintained on aspirin 81 mg daily, atorvastatin 40 mg nightly, Plavix 75 mg daily, PO Lasix 40 mg twice a day, lisinopril 10 mg daily, metoprolol succinate 25 mg daily, Xarelto 15 mg twice a day Lasix, sodium 131, potassium 4.2, BUN 29, serum creatinine 1.1 PHYSICAL EXAM: VITAL SIGNS: Reviewed. GENERAL: In no acute distress HEENT: Head is normocephalic. Pupils are equal, round. Sclerae anicteric. Mucous membranes of the mouth are moist. Neck supple. No JVD LUNGS: Respirations even and unlabored. Lungs diminished bilaterally to auscultation bilaterally. HEART: Regular rate and rhythm. S1 and S2 heard. ABDOMEN: Soft. Nondistended. Nontender. EXTREMITIES: Normal range of motion. No clubbing or cyanosis. Peripheral pulses intact. 1+ bilateral lower extremity edema NEUROLOGIC: Awake and alert. Oriented x 3. ASSESSMENT: Unstable angina Coronary artery disease 85% distal left main stenosis, proximal LAD 20-30% stenosis, proximal circumflex 40-50% stenosis and 100% RCA stenosis with [id number] collaterals Status post stenting of the distal left main and balloon angioplasty of the circumflex with Impella support on 10/26/2021 Elevated Left sided filling pressures Pulmonary Embolism- CT scan of the chest 10/28/2021 showed possible pulmonary embolism, patient started on Xarelto Hypertension HIV Anxiety Depression Nicotine dependence Family history of premature coronary artery disease PLAN: Agree with transition to PO Lasix Continue dual antiplatelet therapy with aspirin and plavix Continue statin and lisinopril and beta agustín Monitor renal function and electrolytes Patient started on Xarelto for pulmonary embolism Further recommendations pending patient course Nurse practitioner note has been reviewed by physician. Signing provider agrees with the documented findings, assessment, and plan of care. Objective - Vital Signs Vital signs: Vital Signs Temp 97.7 F 11/01/21 04:45 Pulse 66 11/01/21 11:37 Resp 20 11/01/21 04:45 BP 94/58 11/01/21 04:45 Pulse Ox 91 L 11/01/21 04:45 FiO2 50 10/31/21 00:26 Intake & Output 10/31/21 11/01/21 11/01/21 18:59 06:59 18:59 Intake Total 860 360 240 Output Total 2350 1500 1350 Balance -1490 -1140 -1110 Intake: Oral 860 360 240 Output: Urine 2350 1500 1350 Other: Voiding Method Indwelling Catheter Indwelling Catheter - Labs CBC & Chem 7: 11/01/21 11:22 11/01/21 11:22 Labs: Abnormal Lab Results - Last 24 Hours (Table) 10/31/21 10/31/21 11/01/21 Range/Units 16:31 20:54 11:22 WBC (3.8-10.6) k/uL Neutrophils # (1.3-7.7) k/uL Monocytes # (0-1.0) k/uL Sodium 131 L (137-145) mmol/L Chloride 95 L (98-107) mmol/L BUN 29 H (9-20) mg/dL Glucose 61 L (74-99) mg/dL POC Glucose (mg/dL) 105 H 159 H (75-99) mg/dL ALT 72 H (4-49) U/L 11/01/21 Range/Units 11:22 WBC 14.4 H (3.8-10.6) k/uL Neutrophils # 10.6 H (1.3-7.7) k/uL Monocytes # 1.4 H (0-1.0) k/uL Sodium (137-145) mmol/L Chloride (98-107) mmol/L BUN (9-20) mg/dL Glucose (74-99) mg/dL POC Glucose (mg/dL) (75-99) mg/dL ALT (4-49) U/L
[2021-11-01 16:38] LABS: Glucose,Whole Blood 92 mg/dL (75-99)
[2021-11-01] MEDS: FUROSEMIDE 40 MG TAB PO SCH (18:46)
--- NOTE | 2021-11-01 20:07 | P.PN ---
Subjective Progress Note Date: 11/01/21 Principal diagnosis: HIV Patient is a 61-year-old male with a past medical history significant for HIV for many years for which the patient to follow with ID physician do mock presented to the hospital with chest pain has been diagnosed with multivessel disease and the patient is status post percutaneous cardiac intervention completed on 10/26/2021. On today's evaluation that is 11/01/2021, the patient remains to be afebrile, patient denies chest pain, the patient is breathing more comfortably on nasal cannula oxygen, the patient did have occasional cough but no sputum production, no abdominal pain no diarrhea Objective - Vital Signs Vital signs: Vital Signs Temp 97.7 F 11/01/21 04:45 Pulse 66 11/01/21 11:37 Resp 20 11/01/21 04:45 BP 94/58 11/01/21 04:45 Pulse Ox 91 L 11/01/21 04:45 FiO2 50 10/31/21 00:26 Intake & Output 10/31/21 11/01/21 11/01/21 18:59 06:59 18:59 Intake Total 860 360 240 Output Total 2350 1500 Balance -1490 -1140 240 Intake: Oral 860 360 240 Output: Urine 2350 1500 Other: Voiding Method Indwelling Catheter Indwelling Catheter - Exam GENERAL DESCRIPTION: Middle-age male up in the chair in no distress RESPIRATORY SYSTEM: Unlabored breathing , decreased breath sounds at bases HEART: S1 S2 regular rate and rhythm , ABDOMEN: Soft , no tenderness EXTREMITIES: No edema feet - Labs CBC & Chem 7: 11/01/21 11:22 11/01/21 11:22 Labs: Abnormal Lab Results - Last 24 Hours (Table) 10/31/21 10/31/21 11/01/21 Range/Units 16:31 20:54 11:22 WBC 14.4 H (3.8-10.6) k/uL Neutrophils # 10.6 H (1.3-7.7) k/uL Monocytes # 1.4 H (0-1.0) k/uL POC Glucose (mg/dL) 105 H 159 H (75-99) mg/dL Assessment and Plan (1) HIV (human immunodeficiency virus infection) Current Visit: No Status: Acute Code(s): B20 - HUMAN IMMUNODEFICIENCY VIRUS [HIV] DISEASE SNOMED Code(s): 14263597 Plan: 1patient with HIV for many years for the patient has been following in [facility] with an ID physician however has not seen a physician in more than 18 months now and the patient mention did not have any blood work done, patient admitted to hospital with chest pain and has been diagnosed with multivessel disease. 2the patient HIV is well-controlled has patient CD4 count is more than 1000 however viral load is still pending,patient to continue with the Karuna and Natalia. 3-leukocytosis is more likely steroid effect , and will be monitored closely Time with Patient: Less than 30
[2021-11-01] MEDS: ATORVASTATIN 40 MG TAB PO SCH (21:20)
[2021-11-01] MEDS: lisinopriL 10 MG TAB PO SCH (21:21)
[2021-11-01] MEDS: Emtricitabine/Tenofov Alafenam [Descovy 200-25 Mg Tablet] PO SCH (21:22)
[2021-11-01] MEDS: traZODone HCL 50 MG TAB PO SCH (22:22)
[2021-11-02] MEDS: LEVOTHYROXINE 25 MCG TAB PO SCH (05:49)
[2021-11-02] MEDS: BUDESONIDE 1 MG/2 ML NEBU INHALATION SCH ×2 (08:35→19:30)
[2021-11-02] MEDS: IPRATROPIUM-ALBUTEROL 3 ML NEB INHALATION SCH ×4 (08:35→19:30)
[2021-11-02] MEDS: FORMOTEROL FUMARATE 20 MCG/2 ML NEBU INHALATION SCH ×2 (08:35→19:30)
[2021-11-02] MEDS: predniSONE 20 MG TAB PO SCH (09:36)
[2021-11-02] MEDS: FUROSEMIDE 40 MG TAB PO SCH ×2 (09:36→15:56)
[2021-11-02] MEDS: ASPIRIN 81 MG PO SCH (09:36)
[2021-11-02] MEDS: CITALOPRAM HYDROBROMIDE 20 MG TAB PO SCH (09:36)
[2021-11-02] MEDS: DOCUSATE 100 MG CAP PO SCH (09:36)
[2021-11-02] MEDS: CLOPIDOGREL 75 MG TAB PO SCH (09:36)
[2021-11-02] MEDS: RIVAROXABAN 15 MG TAB PO SCH ×2 (09:36→20:32)
[2021-11-02] MEDS: BACLOFEN 10 MG TAB PO SCH ×4 (09:36→22:22)
[2021-11-02] MEDS: GABAPENTIN 400 MG CAP PO SCH ×3 (09:36→22:22)
[2021-11-02] MEDS: METOPROLOL SUCCINATE (ER) 25 MG TAB.ER.24H PO SCH (09:36)
[2021-11-02] MEDS: buPROPion XL 300 MG TAB.ER.24H PO SCH (09:36)
[2021-11-02] MEDS: LEVOFLOXACIN 500 MG TAB PO SCH (09:37)
[2021-11-02] MEDS: guaiFENesin-DM 600/30MG 1 EACH TAB.ER.12H PO SCH ×2 (09:37→20:33)
[2021-11-02] MEDS: MORPHINE SULFATE IR 15 MG TABLET PO SCH ×4 (09:37→22:22)
[2021-11-02] MEDS: LORATADINE 10 MG TAB PO SCH ×2 (09:37→09:42)
[2021-11-02] MEDS: SODIUM CHLORIDE 0.9% 500 ML 500 ML IV SCH (09:38)
[2021-11-02] MEDS: INTELENCE 200 MG PO SCH ×2 (09:39→20:34)
[2021-11-02] MEDS: NON FORMULARY DRUG (Phentermine Hcl [Adipex-P] 37.5 MG Tablet) PO SCH (09:39)
[2021-11-02 11:23] LABS: Basophils % (A) 0 %; Eosinophils # (A) 0.2 k/uL (0-0.7); Eosinophils % (A) 2 %; HCT 48.3 % (39.0-53.0); HGB 15.4 gm/dL (13.0-17.5); Lymphocytes # (A) 1.7 k/uL (1.0-4.8); Lymphocytes % (A) 12 %; MCH 29.1 pg (25.0-35.0); MCV 91.1 fL (80.0-100.0); Monocytes # (A) 1.2 k/uL (0-1.0); Monocytes % (A) 8 %; Neutrophils % (A) 76 %; Platelet Count 337 k/uL (150-450); RDW 13.9 % (11.5-15.5); WBC 14.6 k/uL (3.8-10.6)
[2021-11-02 11:26] LABS: ALT 59 U/L (4-49); AST 38 U/L (17-59); African American GFR (CKD) >90 (>60 ml/min/1.73 sqM); Albumin 3.9 g/dL (3.5-5.0); Alkaline Phosphatase 54 U/L (38-126); Anion Gap 6 mmol/L; Blood Urea Nitrogen 24 mg/dL (9-20); Calcium 8.9 mg/dL (8.4-10.2); Carbon Dioxide 32 mmol/L (22-30); Chloride 95 mmol/L (98-107); Glucose 109 mg/dL (74-99); Non-African American GFR(CKD) 79 (>60 ml/min/1.73 sqM); Potassium 3.7 mmol/L (3.5-5.1); Sodium 133 mmol/L (137-145); Total Bilirubin 0.4 mg/dL (0.2-1.3); Total Protein 6.6 g/dL (6.3-8.2)
[2021-11-02] MEDS: IPRATROPIUM BROMIDE 0.06% NASAL SPRAY (15 ML) EA NOSTRIL SCH ×2 (11:26→20:35)
--- NOTE | 2021-11-02 11:58 | P.PN ---
Subjective Progress Note Date: 11/02/21 Jack Luna, is a 61-year-old male who presented to [facility] emergency room with a chief complaint of chest pain He was evaluated in the emergency room vital examination on presentation r evealed a temperature of 98 pulse 94 respiration 20 blood pressure 143/91 pulse ox 94% on room air Laboratory data revealed a white blood count of 13.3 IMO globin 16.5 platelet count 258 sodium 131 potassium 4.2 chloride 96 CO2 28 BUN 17 creatinine 0.98 troponin level was 0.0-4 Testing in the emergency room revealed EKG done in the emergency room revealed sinus rhythm with first-degree AV block and incomplete right bundle branch block, chest x-ray done in the emergency room revealed evidence of cardiomegaly otherwise no abnormality seen. Patient was admitted to medical floor for further evaluation and treatment, cardiology consultation was requested. Past medical history is significant for history of hypertension, history of COPD, history of osteoarthritis, history of HIV AIDS syndrome diagnosed in 1990 maintained on medications through infectious disease in [place], history of peripheral neuropathy, history of obstructive sleep apnea, history of degenerative disc disease, history of bipolar disorder, history of recurrent bilateral lower extremity cellulitis and history of tobacco use On 10/25/2021 patient is alert and oriented 3. Patient is status post cardiac catheterization which patient was found to have multivessel disease including 85% distal left main stenosis, proximal LAD 20-30% stenosis proximal circumflex 40-55% stenosis and 100% RCA stenosis with [id number] collaterals. Patient was evaluated by cardiothoracic surgery but appears that the plan at this time i s to proceed with catheterization and stent. Patient remains on IV heparin drip. At this time patient denies chest pain or shortness of breath. Patient denies nausea vomiting or diarrhea. Patient denies any urinary burning or frequency. On 10/26/2021 patient was seen and examined in the ICU he is alert and oriented in no apparent distress, last night he had episodes of worsening shortness of breath, he was transferred to intensive care unit, pulmonary consultation was requested, this morning he was evaluated by cardiology, and decision was made to proceed with high risk PCI Impella protected, input from Dr. Agudelo infectious disease reviewed will continue to follow closely. On 10/27/2021 patient was seen and examined in the ICU he is alert and oriented 3 in no apparent distress he is sitting up in a chair he denies any new episodes of chest pain he is still having shortness of breath with any activity he is maintained on high flow oxygen at 12 L/m otherwise he denies any complain ts there is no fever or chills no headache or dizziness no chest pain no cough no nausea or vomiting no abdominal pain no diarrhea and no urinary symptoms. Chest x-ray today reveals left lower lobe infiltrate and right small pleural effusion. On 10/28/2021 patient was seen and examined in the ICU he is alert and oriented 3 in no apparent distress, he is still requiring high flow oxygen at 15 L/m, his O2 sat duration is 88%, he was evaluated by pulmonary, and cardiology, CT angiogram of the chest was done and revealed right lower lobe medial segmental pulmonary embolism, and evidence of markedly dilated pulmonary artery measuring up to 4.1 cm. Patient was started on oral Xarelto 15 mg twice daily. Cardiology pulmonary and cardiothoracic surgery are following. On 10/29/2021 patient was seen and examined in the ICU he is alert and oriented in no apparent distress, he is still maintained on oxygen via high flow cannula at 15 L his pulse ox is 91% temperature 98.4 pulse 76 respiration 11 blood pressure 113/78 laboratory data reveals a white blood count of 14.6 hemoglobin 14.0 platelet count 220 sodium 1:30 potassium 4.5 chloride 93 CO2 31 BUN 17 creatinine 0.86 On 10/30/2021 patient is alert and oriented remains in the intensive care unit oxygen demand to 6 L. Patient remains on IV steroids and Levaquin. Current vitals temp 98.2, heart rate 94, blood pressure 108/58 and oxygen saturation 94% on high flow 6 L critical care and cardiology services are following. On 10/31/2021 patient was seen and examined in the ICU he is alert and oriented 3 in no apparent distress he is sitting up in a chair, vital examination reveals a temperature of 97.6 pulse 79 respiration 12 blood pressure 137/87 pulse ox 94% on 2 L nasal cannula, white blood count is 20.1 hemoglobin 14.1 mary kate telet count 260 sodium 129 potassium 4.4 chloride 92 CO2 30 BUN 23 creatinine 0.78 clinically patient is improving he will be transferred out of ICU he is maintained on DuoNeb updraft 4 times daily scheduled, he is also maintained on prednisone 40 mg daily, Xarelto 15 mg twice a day, and Lasix 40 mg IV twice daily, will continue to follow closely On 11/01/2021 patient has been moved out of the intensive care unit currently resting on stepdown unit. Patient is alert and oriented 3 requesting pain medication. Patient remains on IV Lasix. Patient has been transitioned to oral steroids. Patient currently on 2 L. Patient complaining chronic pain. Patient denies chest pain. Patient denies nausea vomiting or diarrhea. Patient denies any urinary burning or frequency. On 11/02/2021 patient was seen and examined on the telemetry floor he is alert and oriented in no apparent distress his shortness of breath is improving his oxygen requirement decreasing, he is complaining of constipation otherwise he denies any complaints at this time. Objective - Vital Signs Vital signs: Vital Signs Temp 98.1 F 11/02/21 09:23 Pulse 89 11/02/21 09:23 Resp 18 11/02/21 09:23 BP 111/67 11/02/21 09:23 Pulse Ox 90 L 11/02/21 09:23 FiO2 50 10/31/21 00:26 Intake & Output 11/01/21 11/02/21 11/02/21 18:59 06:59 18:59 Intake Total 1000 1460 300 Output Total 3500 1800 1600 Balance -2500 -340 -1300 Intake: IV 20 20 Invasive Line 7 20 20 Oral 980 1440 300 Output: Urine 3500 1800 1600 Other: Voiding Method Indwelling Catheter Urinal - Exam In general patient is alert and oriented x 3 in no distress HEENT head normocephalic and atraumatic Neck is supple no JVD no goiter no lymphadenopathy no carotid bruit Chest examination is clear to auscultation no crackles no wheezing Cardiac exam reveals regular heart sounds S1 and S2 no gallops no murmurs Abdomen is soft nontender no organomegaly with normal bowel sounds Extremity exam reveals no edema no cyanosis or clubbing Neurological examination reveals no gross focal deficits - Labs CBC & Chem 7: 11/02/21 10:24 11/02/21 10:24 Labs: Abnormal Lab Results - Last 24 Hours (Table) 11/01/21 11/01/21 11/02/21 Range/Units 11:22 11:22 10:24 WBC 14.4 H (3.8-10.6) k/uL Neutrophils # 10.6 H (1.3-7.7) k/uL Monocytes # 1.4 H (0-1.0) k/uL Sodium 131 L 133 L (137-145) mmol/L Chloride 95 L 95 L (98-107) mmol/L Carbon Dioxide 32 H (22-30) mmol/L BUN 29 H 24 H (9-20) mg/dL Glucose 61 L 109 H (74-99) mg/dL ALT 72 H 59 H (4-49) U/L 11/02/21 Range/Units 10:24 WBC 14.6 H (3.8-10.6) k/uL Neutrophils # 11.0 H (1.3-7.7) k/uL Monocytes # 1.2 H (0-1.0) k/uL Sodium (137-145) mmol/L Chloride (98-107) mmol/L Carbon Dioxide (22-30) mmol/L BUN (9-20) mg/dL Glucose (74-99) mg/dL ALT (4-49) U/L Assessment and Plan Plan: Coronary artery disease with multivessel involvement. Post catheterization which was found to have left main stenosis of 85%, proximal RCA stenosis 100%, proximal LAD 20-30% stenosis patient was evaluated cardiothoracic surgery. Patient underwent Impella protected, rotational atherectomy, of the left main yesterday Acute hypoxemia and respiratory failure secondary to acute COPD exacerbation Underlying history of hypertension Underlying history of COPD Underlying history of HIV AIDS syndrome Underlying history of osteoarthritis Underlying history of degenerative disc disease Underlying history of bipolar disorder Underlying history of anxiety with panic disorder Underlying history of continued tobacco use Patient has moved out of the intensive care unit Patient remains on Xarelto 15 mg bid Cardiology and pulmonary services are following Patient has been transitioned to by mouth steroids remains on IV Lasix Repeat labs ordered
--- NOTE | 2021-11-02 12:11 | P.PN ---
Subjective Progress Note Date: 11/02/21 On 10/28/2021, the patient is being seen for a follow-up. 61-year-old male patient with known history of COPD, previous HIV from 1990, hypertension, acid reflux, hypothyroidism and chronic anxiety/depression. The patient also has a underlying coronary artery disease and the patient had an emboli-assisted PCI and stenting of the LAD. The patient also had acute CVA of the circumflex vessel and atherectomy of the left main. For now, the patient is doing well. Since yesterday on over the past 24-48 hours, there is a progressive increase in the patient's oxygen requirement and earlier today the patient was up to 15 L of oxygen by nasal cannula with a pulse ox of 90-91%. On examination, the patient had significant diminished breath sounds bilaterally. The puncture sites have been stable and there is no evidence of any bleeding or hematoma formation. The patient adequate pedal pulses lower extremity is bilaterally. No major respiratory distress at this point in time. The patient is free of any chest pain. The blood work showing a white second of 12.6 and hemoglobin 15.6 and a platelet count of 196. Rezulin electrodes are all within normal limits. The patient received a dose of Lasix today 40 mg IV push and the fluid balance is negative at least 4.6 L as the patient diurese aggressively following a Lasix dose. Ordered a CT angiogram to evaluate the ongoing hypoxemia. 10/29/20212021, the patient is being seen for a follow-up. As part of further investigation for his ongoing hypoxemia, the patient underwent a CT angiogram of the chest. I was not convinced that the patient had a pulmonary embolism. Nevertheless, based on the radiologist's report, there is a segmental filling defect on the right upper lobe and based on that the patient was started on anticoagulation with Xarelto. Is currently receiving Xarelto 15 mg twice a day. The same time, the CAT scan showed extensive bilateral emphysematous changes and some atelectasis in lung bases which probably is one of the main contributing factors for his ongoing hypoxemia along with a component of fluid. He was given diuretics yesterday Lasix 40 mg IV and his overall fluid balance is been -3 L over the past 24 hours. The patient continues to produce excellent amount of urine output. He remains on 15 L of O2 nasal cannula. He has a Overton catheter in place. He continues to have adequate diuresis. In terms of his labs, there are still pending from this morning. Sodium level that we have is at 128, BUN is at 18 with a creatinine of 0.9 and a serum bicarb is at 32. The patient is awake and alert. He has been COPD. He has previous history of HIV. He has hypertension, acid reflux, hypothyroidism and chronic anxiety/depression. He is also obese. The pro calcitonin level is at 1.13 10/30/2021, the patient remains hypoxic and is currently at 15 L nasal cannula with a pulse ox of 80%. At the same time, the patient is utilizing a BiPAP overnight at a pressure of 12/5 cm of water. We'll continue to diurese this patient. He remains on IV Lasix. Fluid balance has been -3.7 L over the past 24 hours. The patient as such as demonstrated excellent diuresis. CT abdomen chest was done. There was a segmental filling defects in the right upper lobe pulmonary artery branch and the patient is currently on Xarelto. Nevertheless, the clot burden is very small and does not explain the patient's ongoing hypoxemia. He does have underlying COPD which is advanced. He also has a component of fluid overload. The chest x-ray from today shows effusion/consolidation of the left lung base. Upper lobes are relatively clear. The patient denies having any chest pain. No altered mentation. His pro calcitonin level was at 1.13 and the patient was started on empiric antibiotic coverage with Levaquin. Meanwhile, the patient remains on Levaquin as an empiric antibiotic coverage, he is also on bronchodilators and IV Solu-Medrol. He is tolerating his diet. No other significant events otherwise for now. White cell count today's at 16.5. Hemoglobin is stable at 13.9. Electrolytes are stable and sodium is at 132, BUN is at 15 with a creatinine of 0.8, serum bicarb is at 30. Troponin level is at 0.021. 10/31/2021, the patient's oxidation is gradually improving. He was weaned off significantly and he got the appointment was on room air oxygen. Overnight, he became hypoxic again and he was placed on oxygen and currently is on 4 L O2 nasal cannula with a pulse ox of 94%. He has been diuresed aggressively with IV Lasix. The patient's fluid balance is -4.1 L for today and 3.7 L 40 yesterday. Overall, his diabetes more than 12 L which led to improvement in his oxygenation. At the same time, he has advanced COPD and aortic questionable pulmonary embolism for which she was started on Xarelto. The clot burden was extremely small. His pro calcitonin level was also slightly elevated at 1.13 and was started on Levaquin. His electrolytes for today are still pending for now. Labs need to be repeated. Meanwhile, in terms of diuretics, the patient is on Lasix 40 mg IV every 12 hours. He is resting comfortably in bed. He is utilizing the BiPAP at a pressure of 12/5 cm of water with an FiO2 of 50% overnight. He is on IV Solu-Medrol. He is on bronchodilators. No fever. No altered mentation. No other significant events otherwise for now. then 2021, the patient is down to 2 L of oxygen by nasal cannula. the patient got transferred out of the intensive care unit. His COPD is optimize and the patient diuresed adequately with IV Lasix 40 mg every 12 hours. the fluid balance for now remains negative another 4.1 L 4 yesterday and 2.6 L since early this morning. Weight is down. Brester status is stable. The patient remains on bronchodilators. Is on a prednisone burst taper. the white cell count is 14.4 with a hemoglobin of 15.6. no angina. He is being evaluated by cardiothoracic surgery also. his pro-calcitonin level has dropped down to 0.03 and the patient was covered empirically with Levaquin. 11/02/2021, the patient on room air oxygen. Diurese adequately and the patient is a negative fluid balance of another 2.6 L 4 yesterday and 2.8 L for today. No respiratory difficulties for now. The BUN Is a 24 with a creatinine of 1.04. Sodium level is at 133. White cell count is 14.6. The patient is on DuoNeb neb treatments around the clock. The patient is completing a prednisone burst taper. He is also on long-term antibiotic ventilation with Xarelto. No altered mentation. No chest pain. Objective - Vital Signs Vital signs: Vital Signs Temp 98.1 F 11/02/21 09:23 Pulse 89 06/11/22 09:23 Resp 18 11/02/21 09:23 BP 111/67 11/02/21 09:23 Pulse Ox 90 L 11/02/21 09:23 FiO2 50 10/31/21 00:26 Intake & Output 11/01/21 11/02/21 11/02/21 18:59 06:59 18:59 Intake Total 1000 1460 300 Output Total 3500 1800 1600 Balance -2500 -340 -1300 Intake: IV 20 20 Invasive Line 7 20 20 Oral 980 1440 300 Output: Urine 3500 1800 1600 Other: Voiding Method Indwelling Catheter Urinal - Exam GENERAL EXAM: Awake, alert pleasant 61-year-old male patient, on room air oxygen, sitting up in a chair at the bedside, comfortable in no apparent distress. HEAD: Normocephalic. EYES: Normal reaction of pupils, equal size. NOSE: Clear with pink turbinates. THROAT: No erythema or exudates. NECK: No masses, no JVD. CHEST: No chest wall deformity. LUNGS: Equal air entry with no crackles, wheeze, rhonchi or dullness. CVS: S1 and S2 normal with no audible murmur, regular rhythm. ABDOMEN: No hepatosplenomegaly, normal bowel sounds, no guarding or rigidity. SPINE: No scoliosis or deformity SKIN: No rashes CENTRAL NERVOUS SYSTEM: No focal deficits, tone is normal in all 4 extremities. EXTREMITIES: There is no peripheral edema. No clubbing, no cyanosis. Peripheral pulses are intact. - Labs CBC & Chem 7: 11/02/21 10:24 11/02/21 10:24 Labs: Abnormal Lab Results - Last 24 Hours (Table) 11/01/21 11/01/21 Range/Units 11:22 11:22 WBC 14.4 H (3.8-10.6) k/uL Neutrophils # 10.6 H (1.3-7.7) k/uL Monocytes # 1.4 H (0-1.0) k/uL Sodium 131 L (137-145) mmol/L Chloride 95 L (98-107) mmol/L BUN 29 H (9-20) mg/dL Glucose 61 L (74-99) mg/dL ALT 72 H (4-49) U/L Assessment and Plan Plan: Coronary artery disease including left main stenosis. Status post Impella protected PCI with stenting to the left main, rotational atherectomy left main, PTBA to the circumflex, balloon to have been out of the left femoral access site secondary to failed Perclose performed on 10/26/2021, subsequent intervention without other Perclose and from stop with control of the puncture sites.. The patient has a normal echocardiogram with normal LV function, no valvular heart disease or pulmonary hypertension. The patient is free of any chest pain, was being diuresed with IV Lasix with an excellent negative fluid balance and currently is on oral Lasix in addition to his aspirin, Plavix, beta blockers in the form of metoprolol XL 25 mg by mouth daily, and Zestril. the patient will be further seen by cardiothoracic surgery Re: Triple-vessel disease. The patient will be seen also by cardiothoracic surgery. Not a great candidate for cardiac revascularization surgery. Acute hypoxemic respiratory failure secondary to suspected acute COPD exacerbation overnight, and fluid overload and the patient is improved and the patient is currently down to 2 L of oxygen by nasal cannula. Shortness of breath secondary to above Chronic and ongoing tobacco dependence, chest x-ray from today shows stable bi lateral pleural effusions, no acute abnormalities Chronic obstructive pulmonary disease with an FEV1 value 1.33 L or 48% of predicted History of HIV History of anxiety/depression History of hypertension Hypothyroidism Obesity Plan: The patient's oxygenation is improved and his COPD status is optimized Continue Lasix, currently on by mouth Lasix 40 mg twice a day Continue prednisone burst taper Continue articulation with Xarelto Completed the course of Levaquin and the pro-calcitonin level has normalized Arrange home nebulizer and home O2 if the patient qualifies Cardiothoracic consultation regarding his underlying CAD.
[2021-11-02] MEDS: MORPHINE SULFATE 4 MG/ML SYRINGE IVP PRN (13:57)
[2021-11-02] MEDS: LACTULOSE 20 GM/30 ML CUP PO SCH ×4 (15:56→22:21)
[2021-11-02] MEDS: ATORVASTATIN 40 MG TAB PO SCH (20:32)
[2021-11-02] MEDS: lisinopriL 10 MG TAB PO SCH (20:32)
[2021-11-02] MEDS: Emtricitabine/Tenofov Alafenam [Descovy 200-25 Mg Tablet] PO SCH (20:34)
--- NOTE | 2021-11-02 20:35 | P.PN ---
Subjective Progress Note Date: 11/02/21 Principal diagnosis: HIV Patient is a 61-year-old male with a past medical history significant for HIV for many years for which the patient to follow with ID physician do mock presented to the hospital with chest pain has been diagnosed with multivessel disease and the patient is status post percutaneous cardiac intervention completed on 10/26/2021. On today's evaluation that is 11/02/2021, the patient denies any fever or chills, patient denies chest pain, the patient is breathing comfortably on room air, the patient did have occasional cough but no sputum production, no abdominal pain no diarrhea Objective - Vital Signs Vital signs: Vital Signs Temp 98.1 F 11/02/21 09:23 Pulse 78 11/02/21 12:02 Resp 18 11/02/21 09:23 BP 111/67 11/02/21 09:23 Pulse Ox 90 L 11/02/21 09:23 FiO2 50 10/31/21 00:26 Intake & Output 11/01/21 11/02/21 11/02/21 18:59 06:59 18:59 Intake Total 1000 1460 310 Output Total 3500 1800 1600 Balance -2500 340 -8940 Intake: IV 20 20 10 Invasive Line 7 20 20 10 Oral 980 1440 300 Output: Urine 3500 1800 1600 Other: Voiding Method Indwelling Catheter Urinal Urinal - Exam GENERAL DESCRIPTION: Middle-age male up in the chair in no distress RESPIRATORY SYSTEM: Unlabored breathing , decreased breath sounds at bases HEART: S1 S2 regular rate and rhythm , ABDOMEN: Soft , no tenderness EXTREMITIES: No edema feet - Labs CBC & Chem 7: 11/02/21 10:24 11/02/21 10:24 Labs: Abnormal Lab Results - Last 24 Hours (Table) 11/02/21 11/02/21 Range/Units 10:24 10:24 WBC 14.6 H (3.8-10.6) k/uL Neutrophils # 11.0 H (1.3-7.7) k/uL Monocytes # 1.2 H (0-1.0) k/uL Sodium 133 L (137-145) mmol/L Chloride 95 L (98-107) mmol/L Carbon Dioxide 32 H (22-30) mmol/L BUN 24 H (9-20) mg/dL Glucose 109 H (74-99) mg/dL ALT 59 H (4-49) U/L Assessment and Plan (1) HIV (human immunodeficiency virus infection) Current Visit: No Status: Acute Code(s): B20 - HUMAN IMMUNODEFICIENCY VIRUS [HIV] DISEASE SNOMED Code(s): 21080829 Plan: 1patient with HIV for many years for the patient has been following in [facility] with an [facility] physician however has not seen a physician in more than 18 months now and the patient mention did not have any blood work done, patient admitted to hospital with chest pain and has been diagnosed with multivessel disease. 2the patient HIV is well-controlled has patient CD4 count is more than 1000 however viral load remains to be pending as of 11/02/2021,patient to continue with the Karuna and Natalia. 3-leukocytosis is more likely steroid effect and will be monitored closely Time with Patient: Less than 30
[2021-11-02] MEDS: traZODone HCL 50 MG TAB PO SCH (22:22)
[2021-11-03] MEDS: LEVOTHYROXINE 25 MCG TAB PO SCH (05:53)
[2021-11-03] MEDS: ACETAMINOPHEN TAB 325 MG TAB PO PRN ×2 (05:55→13:16)
[2021-11-03 08:10] LABS: ALT 59 U/L (4-49); AST 39 U/L (17-59); African American GFR (CKD) >90 (>60 ml/min/1.73 sqM); Albumin 3.8 g/dL (3.5-5.0); Alkaline Phosphatase 50 U/L (38-126); Anion Gap 9 mmol/L; Blood Urea Nitrogen 18 mg/dL (9-20); Calcium 8.8 mg/dL (8.4-10.2); Carbon Dioxide 25 mmol/L (22-30); Chloride 98 mmol/L (98-107); Glucose 93 mg/dL (74-99); Non-African American GFR(CKD) 87 (>60 ml/min/1.73 sqM); Potassium 4.2 mmol/L (3.5-5.1); Sodium 132 mmol/L (137-145); Total Bilirubin 0.4 mg/dL (0.2-1.3); Total Protein 6.3 g/dL (6.3-8.2)
[2021-11-03 08:14] LABS: Basophils % (A) 0 %; Eosinophils # (A) 0.3 k/uL (0-0.7); Eosinophils % (A) 2 %; HCT 45.3 % (39.0-53.0); HGB 14.7 gm/dL (13.0-17.5); Lymphocytes # (A) 2.3 k/uL (1.0-4.8); Lymphocytes % (A) 16 %; MCH 29.1 pg (25.0-35.0); MCHC 32.5 g/dL (31.0-37.0); MCV 89.7 fL (80.0-100.0); Mean Platelet Volume 6.7; Monocytes # (A) 0.9 k/uL (0-1.0); Monocytes % (A) 7 %; Neutrophils # (A) 10.1 k/uL (1.3-7.7); Neutrophils % (A) 72 %; Platelet Count 329 k/uL (150-450); RBC 5.06 m/uL (4.30-5.90); RDW 13.7 % (11.5-15.5)
[2021-11-03] MEDS: IPRATROPIUM-ALBUTEROL 3 ML NEB INHALATION SCH ×5 (09:31→19:54)
[2021-11-03] MEDS: BUDESONIDE 1 MG/2 ML NEBU INHALATION SCH ×2 (09:31→19:54)
[2021-11-03] MEDS: FORMOTEROL FUMARATE 20 MCG/2 ML NEBU INHALATION SCH ×2 (09:31→19:54)
--- NOTE | 2021-11-03 10:05 | P.PN ---
Subjective Progress Note Date: 11/03/21 Jack Luna, is a 61-year-old male who presented to [facility] emergency room with a chief complaint of chest pain He was evaluated in the emergency room vital examination on presentation r evealed a temperature of 98 pulse 94 respiration 20 blood pressure 143/91 pulse ox 94% on room air Laboratory data revealed a white blood count of 13.3 IMO globin 16.5 platelet count 258 sodium 131 potassium 4.2 chloride 96 CO2 28 BUN 17 creatinine 0.98 troponin level was 0.0-4 Testing in the emergency room revealed EKG done in the emergency room revealed sinus rhythm with first-degree AV block and incomplete right bundle branch block, chest x-ray done in the emergency room revealed evidence of cardiomegaly otherwise no abnormality seen. Patient was admitted to medical floor for further evaluation and treatment, cardiology consultation was requested. Past medical history is significant for history of hypertension, history of COPD, history of osteoarthritis, history of HIV AIDS syndrome diagnosed in 1990 maintained on medications through infectious disease in [place], history of peripheral neuropathy, history of obstructive sleep apnea, history of degenerative disc disease, history of bipolar disorder, history of recurrent bilateral lower extremity cellulitis and history of tobacco use On 10/25/2021 patient is alert and oriented 3. Patient is status post cardiac catheterization which patient was found to have multivessel disease including 85% distal left main stenosis, proximal LAD 20-30% stenosis proximal circumflex 40-55% stenosis and 100% RCA stenosis with [id number] collaterals. Patient was evaluated by cardiothoracic surgery but appears that the plan at this time i s to proceed with catheterization and stent. Patient remains on IV heparin drip. At this time patient denies chest pain or shortness of breath. Patient denies nausea vomiting or diarrhea. Patient denies any urinary burning or frequency. On 10/26/2021 patient was seen and examined in the ICU he is alert and oriented in no apparent distress, last night he had episodes of worsening shortness of breath, he was transferred to intensive care unit, pulmonary consultation was requested, this morning he was evaluated by cardiology, and decision was made to proceed with high risk PCI Impella protected, input from Dr. Agudelo infectious disease reviewed will continue to follow closely. On 10/27/2021 patient was seen and examined in the ICU he is alert and oriented 3 in no apparent distress he is sitting up in a chair he denies any new episodes of chest pain he is still having shortness of breath with any activity he is maintained on high flow oxygen at 12 L/m otherwise he denies any complain ts there is no fever or chills no headache or dizziness no chest pain no cough no nausea or vomiting no abdominal pain no diarrhea and no urinary symptoms. Chest x-ray today reveals left lower lobe infiltrate and right small pleural effusion. On 10/28/2021 patient was seen and examined in the ICU he is alert and oriented 3 in no apparent distress, he is still requiring high flow oxygen at 15 L/m, his O2 sat duration is 88%, he was evaluated by pulmonary, and cardiology, CT angiogram of the chest was done and revealed right lower lobe medial segmental pulmonary embolism, and evidence of markedly dilated pulmonary artery measuring up to 4.1 cm. Patient was started on oral Xarelto 15 mg twice daily. Cardiology pulmonary and cardiothoracic surgery are following. On 10/29/2021 patient was seen and examined in the ICU he is alert and oriented in no apparent distress, he is still maintained on oxygen via high flow cannula at 15 L his pulse ox is 91% temperature 98.4 pulse 76 respiration 11 blood pressure 113/78 laboratory data reveals a white blood count of 14.6 hemoglobin 14.0 platelet count 220 sodium 1:30 potassium 4.5 chloride 93 CO2 31 BUN 17 creatinine 0.86 On 10/30/2021 patient is alert and oriented remains in the intensive care unit oxygen demand to 6 L. Patient remains on IV steroids and Levaquin. Current vitals temp 98.2, heart rate 94, blood pressure 108/58 and oxygen saturation 94% on high flow 6 L critical care and cardiology services are following. On 10/31/2021 patient was seen and examined in the ICU he is alert and oriented 3 in no apparent distress he is sitting up in a chair, vital examination reveals a temperature of 97.6 pulse 79 respiration 12 blood pressure 137/87 pulse ox 94% on 2 L nasal cannula, white blood count is 20.1 hemoglobin 14.1 mary kate telet count 260 sodium 129 potassium 4.4 chloride 92 CO2 30 BUN 23 creatinine 0.78 clinically patient is improving he will be transferred out of ICU he is maintained on DuoNeb updraft 4 times daily scheduled, he is also maintained on prednisone 40 mg daily, Xarelto 15 mg twice a day, and Lasix 40 mg IV twice daily, will continue to follow closely On 11/01/2021 patient has been moved out of the intensive care unit currently resting on stepdown unit. Patient is alert and oriented 3 requesting pain medication. Patient remains on IV Lasix. Patient has been transitioned to oral steroids. Patient currently on 2 L. Patient complaining chronic pain. Patient denies chest pain. Patient denies nausea vomiting or diarrhea. Patient denies any urinary burning or frequency. On 11/02/2021 patient was seen and examined on the telemetry floor he is alert and oriented in no apparent distress his shortness of breath is improving his oxygen requirement decreasing, he is complaining of constipation otherwise he denies any complaints at this time. On 11/03/2021 patient is alert and oriented 3. Patient has been transitioned to by mouth Lasix. Current vital signs temp 97.9, heart rate 83, respiratory rate 20, blood pressure 126/83 with pulse of 94% on room air Objective - Vital Signs Vital signs: Vital Signs Temp 97.9 F 11/03/21 04:00 Pulse 82 11/03/21 09:32 Resp 20 11/03/21 04:00 BP 126/83 11/03/21 04:00 Pulse Ox 94 L 11/03/21 04:00 FiO2 50 10/31/21 00:26 Intake & Output 11/02/21 11/03/21 11/03/21 18:59 06:59 18:59 Intake Total 3330 500 Output Total 2850 3775 Balance 480 -3275 Intake: IV 30 20 Invasive Line 7 20 Invasive Line 8 10 20 Oral 3300 480 Output: Urine 2850 3775 Other: Voiding Method Urinal Urinal - Exam In general patient is alert and oriented x 3 in no distress HEENT head normocephalic and atraumatic Neck is supple no JVD no goiter no lymphadenopathy no carotid bruit Chest examination is clear to auscultation no crackles no wheezing Cardiac exam reveals regular heart sounds S1 and S2 no gallops no murmurs Abdomen is soft nontender no organomegaly with normal bowel sounds Extremity exam reveals no edema no cyanosis or clubbing Neurological examination reveals no gross focal deficits - Labs CBC & Chem 7: 11/03/21 06:58 11/03/21 06:58 Labs: Abnormal Lab Results - Last 24 Hours (Table) 11/02/21 11/02/21 11/03/21 Range/Units 10:24 10:24 06:58 WBC 14.6 H (3.8-10.6) k/uL Neutrophils # 11.0 H (1.3-7.7) k/uL Monocytes # 1.2 H (0-1.0) k/uL Sodium 133 L 132 L (137-145) mmol/L Chloride 95 L (98-107) mmol/L Carbon Dioxide 32 H (22-30) mmol/L BUN 24 H (9-20) mg/dL Glucose 109 H (74-99) mg/dL ALT 59 H 59 H (4-49) U/L 11/03/21 Range/Units 06:58 WBC 14.0 H (3.8-10.6) k/uL Neutrophils # 10.1 H (1.3-7.7) k/uL Monocytes # (0-1.0) k/uL Sodium (137-145) mmol/L Chloride (98-107) mmol/L Carbon Dioxide (22-30) mmol/L BUN (9-20) mg/dL Glucose (74-99) mg/dL ALT (4-49) U/L Assessment and Plan Plan: Coronary artery disease with multivessel involvement. Post catheterization which was found to have left main stenosis of 85%, proximal RCA stenosis 100%, proximal LAD 20-30% stenosis patient was evaluated cardiothoracic surgery. Pat ient underwent Impella protected, rotational atherectomy, of the left main yesterday Acute hypoxemia and respiratory failure secondary to acute COPD exacerbation Underlying history of hypertension Underlying history of COPD Underlying history of HIV AIDS syndrome Underlying history of osteoarthritis Underlying history of degenerative disc disease Underlying history of bipolar disorder Underlying history of anxiety with panic disorder Underlying history of continued tobacco use Patient has moved out of the intensive care unit Patient remains on Xarelto 15 mg bid Cardiology and pulmonary services are following Patient has been transitioned to by mouth steroids Patient has been transitioned to by mouth Lasix Repeat labs ordered
[2021-11-03] MEDS: MORPHINE SULFATE IR 15 MG TABLET PO SCH ×4 (10:06→21:41)
[2021-11-03] MEDS: CLOPIDOGREL 75 MG TAB PO SCH (10:06)
[2021-11-03] MEDS: LEVOFLOXACIN 500 MG TAB PO SCH (10:06)
[2021-11-03] MEDS: DOCUSATE 100 MG CAP PO SCH (10:06)
[2021-11-03] MEDS: ASPIRIN 81 MG PO SCH (10:06)
[2021-11-03] MEDS: GABAPENTIN 400 MG CAP PO SCH ×3 (10:06→21:41)
[2021-11-03] MEDS: buPROPion XL 300 MG TAB.ER.24H PO SCH (10:06)
[2021-11-03] MEDS: FUROSEMIDE 40 MG TAB PO SCH ×2 (10:06→15:35)
[2021-11-03] MEDS: CITALOPRAM HYDROBROMIDE 20 MG TAB PO SCH (10:07)
[2021-11-03] MEDS: RIVAROXABAN 15 MG TAB PO SCH ×2 (10:07→21:41)
[2021-11-03] MEDS: METOPROLOL SUCCINATE (ER) 25 MG TAB.ER.24H PO SCH (10:07)
[2021-11-03] MEDS: BACLOFEN 10 MG TAB PO SCH ×4 (10:07→21:41)
[2021-11-03] MEDS: LACTULOSE 20 GM/30 ML CUP PO SCH ×3 (10:07→21:41)
[2021-11-03] MEDS: LORATADINE 10 MG TAB PO SCH (10:07)
[2021-11-03] MEDS: predniSONE 20 MG TAB PO SCH (10:07)
[2021-11-03] MEDS: guaiFENesin-DM 600/30MG 1 EACH TAB.ER.12H PO SCH ×2 (10:08→21:40)
[2021-11-03] MEDS: SODIUM CHLORIDE 0.9% 500 ML 500 ML IV SCH (10:37)
[2021-11-03] MEDS: INTELENCE 200 MG PO SCH ×2 (10:37→21:44)
[2021-11-03] MEDS: IPRATROPIUM BROMIDE 0.06% NASAL SPRAY (15 ML) EA NOSTRIL SCH (10:37)
[2021-11-03] MEDS: NON FORMULARY DRUG (Phentermine Hcl [Adipex-P] 37.5 MG Tablet) PO SCH (10:37)
--- NOTE | 2021-11-03 13:08 | P.PN ---
Subjective Progress Note Date: 11/03/21 On 10/28/2021, the patient is being seen for a follow-up. 61-year-old male patient with known history of COPD, previous HIV from 1990, hypertension, acid reflux, hypothyroidism and chronic anxiety/depression. The patient also has a underlying coronary artery disease and the patient had an emboli-assisted PCI and stenting of the LAD. The patient also had acute CVA of the circumflex vessel and atherectomy of the left main. For now, the patient is doing well. Since yesterday on over the past 24-48 hours, there is a progressive increase in the patient's oxygen requirement and earlier today the patient was up to 15 L of oxygen by nasal cannula with a pulse ox of 90-91%. On examination, the patient had significant diminished breath sounds bilaterally. The puncture sites have been stable and there is no evidence of any bleeding or hematoma formation. The patient adequate pedal pulses lower extremity is bilaterally. No major respiratory distress at this point in time. The patient is free of any chest pain. The blood work showing a white second of 12.6 and hemoglobin 15.6 and a platelet count of 196. Rezulin electrodes are all within normal limits. The patient received a dose of Lasix today 40 mg IV push and the fluid balance is negative at least 4.6 L as the patient diurese aggressively following a Lasix dose. Ordered a CT angiogram to evaluate the ongoing hypoxemia. 10/29/20212021, the patient is being seen for a follow-up. As part of further investigation for his ongoing hypoxemia, the patient underwent a CT angiogram of the chest. I was not convinced that the patient had a pulmonary embolism. Nevertheless, based on the radiologist's report, there is a segmental filling defect on the right upper lobe and based on that the patient was started on anticoagulation with Xarelto. Is currently receiving Xarelto 15 mg twice a day. The same time, the CAT scan showed extensive bilateral emphysematous changes and some atelectasis in lung bases which probably is one of the main contributing factors for his ongoing hypoxemia along with a component of fluid. He was given diuretics yesterday Lasix 40 mg IV and his overall fluid balance is been -3 L over the past 24 hours. The patient continues to produce excellent amount of urine output. He remains on 15 L of O2 nasal cannula. He has a Overton catheter in place. He continues to have adequate diuresis. In terms of his labs, there are still pending from this morning. Sodium level that we have is at 128, BUN is at 18 with a creatinine of 0.9 and a serum bicarb is at 32. The patient is awake and alert. He has been COPD. He has previous history of HIV. He has hypertension, acid reflux, hypothyroidism and chronic anxiety/depression. He is also obese. The pro calcitonin level is at 1.13 10/30/2021, the patient remains hypoxic and is currently at 15 L nasal cannula with a pulse ox of 80%. At the same time, the patient is utilizing a BiPAP overnight at a pressure of 12/5 cm of water. We'll continue to diurese this patient. He remains on IV Lasix. Fluid balance has been -3.7 L over the past 24 hours. The patient as such as demonstrated excellent diuresis. CT abdomen chest was done. There was a segmental filling defects in the right upper lobe pulmonary artery branch and the patient is currently on Xarelto. Nevertheless, the clot burden is very small and does not explain the patient's ongoing hypoxemia. He does have underlying COPD which is advanced. He also has a component of fluid overload. The chest x-ray from today shows effusion/consolidation of the left lung base. Upper lobes are relatively clear. The patient denies having any chest pain. No altered mentation. His pro calcitonin level was at 1.13 and the patient was started on empiric antibiotic coverage with Levaquin. Meanwhile, the patient remains on Levaquin as an empiric antibiotic coverage, he is also on bronchodilators and IV Solu-Medrol. He is tolerating his diet. No other significant events otherwise for now. White cell count today's at 16.5. Hemoglobin is stable at 13.9. Electrolytes are stable and sodium is at 132, BUN is at 15 with a creatinine of 0.8, serum bicarb is at 30. Troponin level is at 0.021. 10/31/2021, the patient's oxidation is gradually improving. He was weaned off significantly and he got the appointment was on room air oxygen. Overnight, he became hypoxic again and he was placed on oxygen and currently is on 4 L O2 nasal cannula with a pulse ox of 94%. He has been diuresed aggressively with IV Lasix. The patient's fluid balance is -4.1 L for today and 3.7 L 40 yesterday. Overall, his diabetes more than 12 L which led to improvement in his oxygenation. At the same time, he has advanced COPD and aortic questionable pulmonary embolism for which she was started on Xarelto. The clot burden was extremely small. His pro calcitonin level was also slightly elevated at 1.13 and was started on Levaquin. His electrolytes for today are still pending for now. Labs need to be repeated. Meanwhile, in terms of diuretics, the patient is on Lasix 40 mg IV every 12 hours. He is resting comfortably in bed. He is utilizing the BiPAP at a pressure of 12/5 cm of water with an FiO2 of 50% overnight. He is on IV Solu-Medrol. He is on bronchodilators. No fever. No altered mentation. No other significant events otherwise for now. then 2021, the patient is down to 2 L of oxygen by nasal cannula. the patient got transferred out of the intensive care unit. His COPD is optimize and the patient diuresed adequately with IV Lasix 40 mg every 12 hours. the fluid balance for now remains negative another 4.1 L 4 yesterday and 2.6 L since early this morning. Weight is down. Brester status is stable. The patient remains on bronchodilators. Is on a prednisone burst taper. the white cell count is 14.4 with a hemoglobin of 15.6. no angina. He is being evaluated by cardiothoracic surgery also. his pro-calcitonin level has dropped down to 0.03 and the patient was covered empirically with Levaquin. 11/02/2021, the patient on room air oxygen. Diurese adequately and the patient is a negative fluid balance of another 2.6 L 4 yesterday and 2.8 L for today. No respiratory difficulties for now. The BUN Is a 24 with a creatinine of 1.04. Sodium level is at 133. White cell count is 14.6. The patient is on DuoNeb neb treatments around the clock. The patient is completing a prednisone burst taper. He is also on long-term antibiotic ventilation with Xarelto. No altered mentation. No chest pain. 11/03/2021, no complaints and the patient remains on room air oxygen. Patient is on a prednisone burst taper. The patient is also on oral Lasix 4 mg twice a day. No fever. No chills. No chest pain. He is on aspirin. He is on Plavix. He is on long-term and to coagulation with Xarelto. He remains on metoprolol 25 mg XL 1 tablet a day. Labs from today shows sodium level of 132, BUN of 18 creatinine of 0.9 and a white cell count of 14. Objective - Vital Signs Vital signs: Vital Signs Temp 97.9 F 11/03/21 04:00 Pulse 82 11/03/21 09:45 Resp 20 11/03/21 04:00 BP 126/83 11/03/21 04:00 Pulse Ox 94 L 11/03/21 04:00 FiO2 50 10/31/21 00:26 Intake & Output 11/02/21 11/03/21 11/03/21 18:59 06:59 18:59 Intake Total 3330 500 Output Total 2850 3775 Balance 480 -3275 Intake: IV 30 20 Invasive Line 7 20 Invasive Line 8 10 20 Oral 3300 480 Output: Urine 2850 3775 Other: Voiding Method Urinal Urinal - Exam GENERAL EXAM: Awake, alert pleasant 61-year-old male patient, on room air oxygen, sitting up in a chair at the bedside, comfortable in no apparent distress. HEAD: Normocephalic. EYES: Normal reaction of pupils, equal size. NOSE: Clear with pink turbinates. THROAT: No erythema or exudates. NECK: No masses, no JVD. CHEST: No chest wall deformity. LUNGS: Equal air entry with no crackles, wheeze, rhonchi or dullness. CVS: S1 and S2 normal with no audible murmur, regular rhythm. ABDOMEN: No hepatosplenomegaly, normal bowel sounds, no guarding or rigidity. SPINE: No scoliosis or deformity SKIN: No rashes CENTRAL NERVOUS SYSTEM: No focal deficits, tone is normal in all 4 extremities. EXTREMITIES: There is no peripheral edema. No clubbing, no cyanosis. Peripheral pulses are intact. - Labs CBC & Chem 7: 11/03/21 06:58 11/03/21 06:58 Labs: Abnormal Lab Results - Last 24 Hours (Table) 11/03/21 11/03/21 Range/Units 06:58 06:58 WBC 14.0 H (3.8-10.6) k/uL Neutrophils # 10.1 H (1.3-7.7) k/uL Sodium 132 L (137-145) mmol/L ALT 59 H (4-49) U/L Assessment and Plan Plan: Coronary artery disease including left main stenosis. Status post Impella protected PCI with stenting to the left main, rotational atherectomy left main, PTBA to the circumflex, balloon to have been out of the left femoral access site secondary to failed Perclose performed on 10/26/2021, subsequent intervention without other Perclose and from stop with control of the puncture sites.. The patient has a normal echocardiogram with normal LV function, no valvular heart disease or pulmonary hypertension. The patient is free of any chest pain, was being diuresed with IV Lasix with an excellent negative fluid balance and currently is on oral Lasix in addition to his aspirin, Plavix, beta blockers in the form of metoprolol XL 25 mg by mouth daily, and Zestril. the patient will be further seen by cardiothoracic surgery Re: Triple-vessel disease. The patient will be seen also by cardiothoracic surgery. Not a great candidate for cardiac revascularization surgery. Acute hypoxemic respiratory failure secondary to suspected acute COPD exacerbation overnight, and fluid overload and the patient is improved and the patient is currently down to 2 L of oxygen by nasal cannula. Shortness of breath secondary to above Chronic and ongoing tobacco dependence, chest x-ray from today shows stable bilateral pleural effusions, no acute abnormalities Chronic obstructive pulmonary disease with an FEV1 value 1.33 L or 48% of predicted History of HIV History of anxiety/depression History of hypertension Hypothyroidism Obesity Plan: Condition remains stable No active pulmonary issues The patient's oxygenation is improved and his COPD status is optimized Continue Lasix, currently on by mouth Lasix 40 mg twice a day Continue prednisone burst taper Continue articulation with Xarelto Completed the course of Levaquin and the pro-calcitonin level has normalized Arrange home nebulizer and home O2 if the patient qualifies Cardiothoracic consultation regarding his underlying CAD. Pulmonary critical care services we'll sign off the case.
[2021-11-03] MEDS: traZODone HCL 50 MG TAB PO SCH (21:41)
[2021-11-03] MEDS: lisinopriL 10 MG TAB PO SCH (21:41)
[2021-11-03] MEDS: ATORVASTATIN 40 MG TAB PO SCH (21:41)
[2021-11-03] MEDS: Emtricitabine/Tenofov Alafenam [Descovy 200-25 Mg Tablet] PO SCH (21:44)
[2021-11-04] MEDS: IPRATROPIUM BROMIDE 0.06% NASAL SPRAY (15 ML) EA NOSTRIL SCH ×2 (04:13→09:19)
[2021-11-04] MEDS: LEVOTHYROXINE 25 MCG TAB PO SCH (06:01)
[2021-11-04] MEDS: ACETAMINOPHEN TAB 325 MG TAB PO PRN ×2 (06:01→15:17)
[2021-11-04 06:42] LABS: Basophils # (A) 0.1 k/uL (0-0.2); Basophils % (A) 0 %; Eosinophils # (A) 0.4 k/uL (0-0.7); Eosinophils % (A) 3 %; HCT 46.2 % (39.0-53.0); HGB 14.7 gm/dL (13.0-17.5); Lymphocytes # (A) 2.2 k/uL (1.0-4.8); Lymphocytes % (A) 14 %; MCH 29.2 pg (25.0-35.0); MCHC 31.7 g/dL (31.0-37.0); MCV 91.9 fL (80.0-100.0); Mean Platelet Volume 6.7; Monocytes # (A) 0.9 k/uL (0-1.0); Monocytes % (A) 6 %; Neutrophils # (A) 11.5 k/uL (1.3-7.7); Neutrophils % (A) 75 %; Platelet Count 336 k/uL (150-450); RBC 5.03 m/uL (4.30-5.90); RDW 13.4 % (11.5-15.5); WBC 15.4 k/uL (3.8-10.6)
[2021-11-04 07:14] LABS: AST 34 U/L (17-59); African American GFR (CKD) >90 (>60 ml/min/1.73 sqM); Total Bilirubin 0.6 mg/dL (0.2-1.3)
[2021-11-04 07:51] LABS: ALT 54 U/L (4-49); Albumin 3.8 g/dL (3.5-5.0); Alkaline Phosphatase 56 U/L (38-126); Anion Gap 7 mmol/L; Blood Urea Nitrogen 17 mg/dL (9-20); Carbon Dioxide 27 mmol/L (22-30); Chloride 98 mmol/L (98-107); Glucose 92 mg/dL (74-99); Non-African American GFR(CKD) 80 (>60 ml/min/1.73 sqM); Potassium 3.8 mmol/L (3.5-5.1); Sodium 132 mmol/L (137-145); Total Protein 6.4 g/dL (6.3-8.2)
[2021-11-04] MEDS: BUDESONIDE 1 MG/2 ML NEBU INHALATION SCH (08:34)
[2021-11-04] MEDS: IPRATROPIUM-ALBUTEROL 3 ML NEB INHALATION SCH ×4 (08:35→16:17)
[2021-11-04] MEDS: FORMOTEROL FUMARATE 20 MCG/2 ML NEBU INHALATION SCH (08:35)
[2021-11-04] MEDS: CITALOPRAM HYDROBROMIDE 20 MG TAB PO SCH (09:13)
[2021-11-04] MEDS: ASPIRIN 81 MG PO SCH (09:13)
[2021-11-04] MEDS: LACTULOSE 20 GM/30 ML CUP PO SCH ×2 (09:13→17:09)
[2021-11-04] MEDS: predniSONE 20 MG TAB PO SCH (09:13)
[2021-11-04] MEDS: GABAPENTIN 400 MG CAP PO SCH ×2 (09:13→17:08)
[2021-11-04] MEDS: BACLOFEN 10 MG TAB PO SCH ×3 (09:13→17:08)
[2021-11-04] MEDS: CLOPIDOGREL 75 MG TAB PO SCH (09:14)
[2021-11-04] MEDS: LORATADINE 10 MG TAB PO SCH (09:14)
[2021-11-04] MEDS: FUROSEMIDE 40 MG TAB PO SCH ×2 (09:14→17:08)
[2021-11-04] MEDS: LEVOFLOXACIN 500 MG TAB PO SCH (09:14)
[2021-11-04] MEDS: DOCUSATE 100 MG CAP PO SCH (09:14)
[2021-11-04] MEDS: RIVAROXABAN 15 MG TAB PO SCH (09:14)
[2021-11-04] MEDS: METOPROLOL SUCCINATE (ER) 25 MG TAB.ER.24H PO SCH (09:14)
[2021-11-04] MEDS: MORPHINE SULFATE IR 15 MG TABLET PO SCH ×3 (09:14→17:08)
[2021-11-04] MEDS: guaiFENesin-DM 600/30MG 1 EACH TAB.ER.12H PO SCH (09:15)
[2021-11-04] MEDS: buPROPion XL 300 MG TAB.ER.24H PO SCH (09:15)
[2021-11-04] MEDS: INTELENCE 200 MG PO SCH (09:15)
[2021-11-04] MEDS: NON FORMULARY DRUG (Phentermine Hcl [Adipex-P] 37.5 MG Tablet) PO SCH (09:19)
[2021-11-04] MEDS: SODIUM CHLORIDE 0.9% 500 ML 500 ML IV SCH (11:18)
[2021-11-04 12:30] VITALS: BP 124/77
--- NOTE | 2021-11-04 12:35 | P.PN ---
Subjective Progress Note Date: 11/04/21 HISTORY OF PRESENT ILLNESS: This is a 61-year-old male with a past medical history significant for hypertension, HIV, anxiety, depression, and hypothyroidism. Patient follows in the office with Dr. Pineda. We have been asked to see the patient in consultation for chest pain. Patient examined at the bedside. Patient states yesterday he was sitting down eating when he began having a burning sensation in his chest. He states the pain radiated into his left arm. He reports it felt like a heavy pressure on his chest which she states is improved this morning. He denied having any shortness of breath. He reports feeling diaphoretic. He denies any nausea or vomiting. The patient does report worsening pain with chest wall palpation. He has a current smoker and smokes 1 pack per day. The patient reports a family history of coronary artery disease and states his dad had a heart attack in his 50s. He also reports his brother has suffered a heart attack. * EKG reveals sinus mechanism with no signs of acute ischemia * Chest xray bibasilar atelectasis not significant changed from prior. No evidence of pneumothorax, pleural effusion, or focal consolidation. * Laboratory data: WBC 13.3. Hemoglobin 16.5. Platelet count 258. Sodium 131. Potassium 4.2. BUN 17. Creatinine 0.98. Magnesium 1.9. Troponin negative 3. * Current home cardiac medications include Trimterene-hctz 37.5-25mg daily, quinapril 10 mg daily, Cardizem 360 mg daily * Most recent echocardiogram obtained in July 2021 revealed ejection fraction 50-55% with moderate LVH * Patient underwent dobutamine stress test and July 2021 which was negative for ischemia 11/04/2021 Patient examined this morning at the bedside. He is s/p cardiac cath with Dr. Solomon with stenting to the distal left main. Patient denies chest pain or pressure. Denies SOB. Vital signs stable. PHYSICAL EXAM: VITAL SIGNS: Reviewed. GENERAL: Well-developed in no acute distress. HEENT: Head is normocephalic. Pupils are equal, round. Sclerae anicteric. Mucous membranes of the mouth are moist. Neck supple. No JVD or thyromegaly LUNGS: Respirations even and unlabored. Lungs essentially clear to auscultation bilaterally. HEART: Regular rate and rhythm. S1 and S2 heard. ABDOMEN: Soft. Nondistended. Nontender. EXTREMITIES: Normal range of motion. No clubbing or cyanosis. Peripheral pulses intact. 1+ bilateral lower extremity edema NEUROLOGIC: Awake and alert. Oriented x 3. ASSESSMENT: Chest pain Coronary artery disease 85% distal left main stenosis, proximal LAD 20-30% stenosis, proximal circumflex 40-50% stenosis and 100% RCA stenosis with [id number] collaterals Status post stenting of the distal left main and balloon angioplasty of the circumflex with Impella support on 10/26/2021 Elevated Left sided filling pressures Pulmonary Embolism- CT scan of the chest 10/28/2021 showed possible pulmonary embolism, patient started on Xarelto Hypertension HIV Anxiety Depression Nicotine dependence Family history of premature coronary artery disease PLAN: Continue current cardiac medications Patient is stable from a cardiac standpoint Patient to follow up in the office on an outpatient basis Nurse practitioner note has been reviewed by physician. Signing provider agrees with the documented findings, assessment, and plan of care. Objective - Vital Signs Vital signs: Vital Signs Temp 98.0 F 11/04/21 08:00 Pulse 70 11/04/21 08:00 Resp 18 11/04/21 08:00 BP 124/78 11/04/21 08:00 Pulse Ox 97 11/04/21 08:00 FiO2 50 10/31/21 00:26 Intake & Output 11/03/21 11/04/21 11/04/21 18:59 06:59 18:59 Intake Total 1078 720 Output Total 1700 1350 Balance -622 -630 Weight 115.6 kg Intake: Oral 1078 720 Output: Urine 1700 1350 Other: Voiding Method Urinal Urinal Urinal # Voids 1 # Bowel Movements 1 - Labs CBC & Chem 7: 11/04/21 06:21 11/04/21 06:21 Labs: Abnormal Lab Results - Last 24 Hours (Table) 11/04/21 11/04/21 Range/Units 06:21 06:21 WBC 15.4 H (3.8-10.6) k/uL Neutrophils # 11.5 H (1.3-7.7) k/uL Sodium 132 L (137-145) mmol/L ALT 54 H (4-49) U/L
--- NOTE | 2021-11-04 14:57 | P.PN ---
Subjective Progress Note Date: 11/04/21 Principal diagnosis: Status post impella protected atherectomy of the left main Jack Luna, is a 61-year-old male who presented to [facility] emergency room with a chief complaint of chest pain He was evaluated in the emergency room vital examination on presentation revealed a temperature of 98 pulse 94 respiration 20 blood pressure 143/91 pulse ox 94% on room air Laboratory data revealed a white blood count of 13.3 IMO globin 16.5 platelet count 258 sodium 131 potassium 4.2 chloride 96 CO2 28 BUN 17 creatinine 0.98 troponin level was 0.0-4 Testing in the emergency room revealed EKG done in the emergency room revealed sinus rhythm with first-degree AV block and incomplete right bundle branch block, chest x-ray done in the emergency room revealed evidence of cardiomegaly otherwise no abnormality seen. Patient was admitted to medical floor for further evaluation and treatment, cardiology consultation was requested. Past medical history is significant for history of hypertension, history of COPD, history of osteoarthritis, history of HIV AIDS syndrome diagnosed in 1990 maintained on medications through infectious disease in [place], history of peripheral neuropathy, history of obstructive sleep apnea, history of degenerative disc disease, history of bipolar disorder, history of recurrent bilateral lower extremity cellulitis and history of tobacco use On 10/31/2021 patient was seen and examined in the ICU he is alert and oriented 3 in no apparent distress he is sitting up in a chair, vital examination reveals a temperature of 97.6 pulse 79 respiration 12 blood pressure 137/87 pulse ox 94% on 2 L nasal cannula, white blood count is 20.1 hemoglobin 14.1 platelet count 260 sodium 129 potassium 4.4 chloride 92 CO2 30 BUN 23 creatinine 0.78 clinically patient is improving he will be transferred out of ICU he is maintained on DuoNeb updraft 4 times daily scheduled, he is also maintained on prednisone 40 mg daily, Xarelto 15 mg twice a day, and Lasix 40 mg IV twice daily, will continue to follow closely On 11/01/2021 patient has been moved out of the intensive care unit currently resting on stepdown unit. Patient is alert and oriented 3 requesting pain medication. Patient remains on IV Lasix. Patient has been transitioned to oral steroids. Patient currently on 2 L. Patient complaining chronic pain. Patient denies chest pain. Patient denies nausea vomiting or diarrhea. Patient denies any urinary burning or frequency. On 11/02/2021 patient was seen and examined on the telemetry floor he is alert and oriented in no apparent distress his shortness of breath is improving his oxygen requirement decreasing, he is complaining of constipation otherwise he denies any complaints at this time. On 11/03/2021 patient is alert and oriented 3. Patient has been transitioned to by mouth Lasix. Current vital signs temp 97.9, heart rate 83, respiratory rate 20, blood pressure 126/83 with pulse of 94% on room air Reevaluated today on 11/04/2021, patient is doing great, asymptomatic, patient is being considered for discharge home, and he is cleared by cardiology, pulmonary- barron, no cough no wheezing no shortness of breath, patient is on room air. O2 saturations 97% Objective - Vital Signs Vital signs: Vital Signs Temp 97.7 F 11/04/21 12:29 Pulse 79 11/04/21 12:55 Resp 18 11/04/21 14:00 BP 124/77 11/04/21 12:29 Pulse Ox 97 11/04/21 12:29 FiO2 50 10/31/21 00:26 Intake & Output 11/03/21 11/04/21 11/04/21 18:59 06:59 18:59 Intake Total 1078 720 Output Total 1700 1350 Balance -622 -630 Weight 115.6 kg Intake: Oral 1078 720 Output: Urine 1700 1350 Other: Voiding Method Urinal Urinal Urinal # Voids 1 # Bowel Movements 1 - Exam Physical Exam: Revealed a 61-year-old white male obese in no distress. Head: Atraumatic, normocephalic. HEENT:[Neck is supple.] [No neck masses.] [No thyromegaly.] [No JVD.] Chest: [Clear throughout, no crackles, no rhonchi, no wheezes.] Cardiac Exam: [Normal S1 and S2, no S3 gallop, no murmur.] Abdomen: [Soft, nontender, no megaly, no rebound, no guarding, normal bowel sounds.] Extremities: [No clubbing, no edema, no cyanosis.] Neurological Exam: [No focal neurologic deficit.] - Labs CBC & Chem 7: 11/04/21 06:21 11/04/21 06:21 Labs: Abnormal Lab Results - Last 24 Hours (Table) 11/04/21 11/04/21 Range/Units 06:21 06:21 WBC 15.4 H (3.8-10.6) k/uL Neutrophils # 11.5 H (1.3-7.7) k/uL Sodium 132 L (137-145) mmol/L ALT 54 H (4-49) U/L Assessment and Plan Assessment: Coronary artery disease with multivessel involvement. Post catheterization which was found to have left main stenosis of 85%, proximal RCA stenosis 100%, proximal LAD 20-30% stenosis patient was evaluated cardiothoracic surgery. Patient underwent Impella protected, rotational atherectomy, of the left main yesterday Acute hypoxemia and respiratory failure secondary to acute COPD exacerbation Underlying history of hypertension Underlying history of COPD Underlying history of HIV AIDS syndrome Recommendation: Agree with the present treatment plan, Continue Xarelto 15 mg twice a day Agree with discharge planning if cleared by other consultants Follow-up with Dr. Choe on outpatient basis Time with Patient: Less than 30
--- NOTE | 2021-11-04 17:03 | P.DS ---
Providers Date of admission: 10/25/21 13:40 Expected date of discharge: 11/04/21 Attending physician: Daniela Rojo Consults: 10/23/21 22:20 Consult Physician Urgent Consulting Provider: Zahra Miller Consult Reason/Comments: Chest pain Do you want consulting provider notified?: Yes, Notify in am 10/24/21 11:30 Consult Physician Routine Consulting Provider: Nate Wilkins Consult Reason/Comments: triple vessel disease Do you want consulting provider notified?: Already Contacted 10/24/21 18:26 Consult Physician Routine Consulting Provider: Hoda Agudelo Consult Reason/Comments: HIV positive Do you want consulting provider notified?: Yes 10/26/21 06:40 Consult Physician Routine Consulting Provider: Dennis Felix Consult Reason/Comments: SOB Do you want consulting provider notified?: Yes, Notify in am 10/26/21 19:16 Consult Physician Routine Consulting Provider: [facility] Consult Reason/Comments: Post Interventional patient Do you want consulting provider notified?: Already Contacted Primary care physician: Daniela Rojo [facility] Course: Diagnosis on discharge: Coronary artery disease with multivessel involvement. Post catheterization which was found to have left main stenosis of 85%, proximal RCA stenosis 100%, proximal LAD 20-30% stenosis patient was evaluated cardiothoracic surgery. Patient underwent Impella protected, rotational atherectomy, of the left main yesterday Acute hypoxemia and respiratory failure secondary to acute COPD exacerbation Underlying history of hypertension Underlying history of COPD Underlying history of HIV AIDS syndrome Underlying history of osteoarthritis Underlying history of degenerative disc disease Underlying history of bipolar disorder Underlying history of anxiety with panic disorder Underlying history of continued tobacco use Hospital course: Jack Luna, is a 61-year-old male who presented to [facility] emergency room with a chief complaint of chest pain He was evaluated in the emergency room vital examination on presentation revealed a temperature of 98 pulse 94 respiration 20 blood pressure 143/91 pulse ox 94% on room air Laboratory data revealed a white blood count of 13.3 IMO globin 16.5 platelet count 258 sodium 131 potassium 4.2 chloride 96 CO2 28 BUN 17 creatinine 0.98 troponin level was 0.0-4 Testing in the emergency room revealed EKG done in the emergency room revealed sinus rhythm with first-degree AV block and incomplete right bundle branch block, chest x-ray done in the emergency room revealed evidence of cardiomegaly otherwise no abnormality seen. Patient was admitted to medical floor for further evaluation and treatment, cardiology consultation was requested. Past medical history is significant for history of hypertension, history of COPD, history of osteoarthritis, history of HIV AIDS syndrome diagnosed in 1990 maintained on medications through infectious disease in [place], history of peripheral neuropathy, history of obstructive sleep apnea, history of degenerative disc disease, history of bipolar disorder, history of recurrent bilateral lower extremity cellulitis and history of tobacco use On 10/25/2021 patient is alert and oriented 3. Patient is status post cardiac catheterization which patient was found to have multivessel disease including 85% distal left main stenosis, proximal LAD 20-30% stenosis proximal circumflex 40-55% stenosis and 100% RCA stenosis with [id number] collaterals. Patient was evaluated by cardiothoracic surgery but appears that the plan at this time is to proceed with catheterization and stent. Patient remains on IV heparin drip. At this time patient denies chest pain or shortness of breath. Patient denies nausea vomiting or diarrhea. Patient denies any urinary burning or frequency. On 10/26/2021 patient was seen and examined in the ICU he is alert and oriented in no apparent distress, last night he had episodes of worsening shortness of breath, he was transferred to intensive care unit, pulmonary consultation was requested, this morning he was evaluated by cardiology, and decision was made to proceed with high risk PCI Impella protected, input from Dr. Agudelo infectious disease reviewed will continue to follow closely. On 10/27/2021 patient was seen and examined in the ICU he is alert and oriented 3 in no apparent distress he is sitting up in a chair he denies any new episodes of chest pain he is still having shortness of breath with any activity he is maintained on high flow oxygen at 12 L/m otherwise he denies any complaints there is no fever or chills no headache or dizziness no chest pain no cough no nausea or vomiting no abdominal pain no diarrhea and no urinary symptoms. Chest x-ray today reveals left lower lobe infiltrate and right small pleural effusion. On 10/28/2021 patient was seen and examined in the ICU he is alert and oriented 3 in no apparent distress, he is still requiring high flow oxygen at 15 L/m, his O2 sat duration is 88%, he was evaluated by pulmonary, and cardiology, CT angiogram of the chest was done and revealed right lower lobe medial segmental pulmonary embolism, and evidence of markedly dilated pulmonary artery measuring up to 4.1 cm. Patient was started on oral Xarelto 15 mg twice daily. Cardiology pulmonary and cardiothoracic surgery are following. On 10/29/2021 patient was seen and examined in the ICU he is alert and oriented in no apparent distress, he is still maintained on oxygen via high flow cannula at 15 L his pulse ox is 91% temperature 98.4 pulse 76 respiration 11 blood pressure 113/78 laboratory data reveals a white blood count of 14.6 hemoglobin 14.0 platelet count 220 sodium 1:30 potassium 4.5 chloride 93 CO2 31 BUN 17 creatinine 0.86 On 10/30/2021 patient is alert and oriented remains in the intensive care unit oxygen demand to 6 L. Patient remains on IV steroids and Levaquin. Current vitals temp 98.2, heart rate 94, blood pressure 108/58 and oxygen saturation 94% on high flow 6 L critical care and cardiology services are following. On 10/31/2021 patient was seen and examined in the ICU he is alert and oriented 3 in no apparent distress he is sitting up in a chair, vital examination reveals a temperature of 97.6 pulse 79 respiration 12 blood pressure 137/87 pulse ox 94% on 2 L nasal cannula, white blood count is 20.1 hemoglobin 14.1 platelet count 260 sodium 129 potassium 4.4 chloride 92 CO2 30 BUN 23 creatinine 0.78 clinically patient is improving he will be transferred out of ICU he is maintained on DuoNeb updraft 4 times daily scheduled, he is also maintained on prednisone 40 mg daily, Xarelto 15 mg twice a day, and Lasix 40 mg IV twice daily, will continue to follow closely On 11/01/2021 patient has been moved out of the intensive care unit currently resting on stepdown unit. Patient is alert and oriented 3 requesting pain medication. Patient remains on IV Lasix. Patient has been transitioned to oral steroids. Patient currently on 2 L. Patient complaining chronic pain. Patient denies chest pain. Patient denies nausea vomiting or diarrhea. Patient denies any urinary burning or frequency. On 11/02/2021 patient was seen and examined on the telemetry floor he is alert and oriented in no apparent distress his shortness of breath is improving his oxygen requirement decreasing, he is complaining of constipation otherwise he denies any complaints at this time. On 11/03/2021 patient is alert and oriented 3. Patient has been transitioned to by mouth Lasix. Current vital signs temp 97.9, heart rate 83, respiratory rate 20, blood pressure 126/83 with pulse of 94% on room air On 11/04/2021 patient was seen and examined on the telemetry floor he is alert and oriented 3 in no apparent distress, he denies any chest pain or shortness of breath at this time, vital examination reveals a temperature of 98 pulse 70 respiration 18 blood pressure 124/78 pulse ox 97% on room air, laboratory data reveals a white blood count of 15.4 hemoglobin 14.7 platelet count 336 sodium 132 potassium 3.8 chloride 98 BUN 17 creatinine 1.03 Patient was cleared by cardiology and pulmonary to be discharged home, he was given prescriptions for Plavix, Xarelto, aspirin, Toprol-XL, Lipitor, DuoNeb and Pulmicort, he was counseled in length regarding taking medications regularly, he will be followed in our office in 2-3 days, he would also be followed by cardiology and pulmonary in 1-2 weeks Patient Condition at Discharge: Fair Plan - Discharge Summary New Discharge Prescriptions: New Aspirin 81 mg PO DAILY tab predniSONE [Deltasone] 40 mg PO DAILY tab Furosemide [Lasix] 40 mg PO BID@0900,1600 tab Atorvastatin [Lipitor] 40 mg PO HS tab Nitroglycerin Sl Tabs [Nitrostat] 0.4 mg SUBLINGUAL Q5M PRN tab PRN Reason: Chest Pain Clopidogrel [Plavix] 75 mg PO DAILY tab Rivaroxaban [Xarelto] 15 mg PO BID tab Ipratropium-Albuterol Nebulize [Duoneb 0.5 mg-3 mg/3 ml Soln] 3 ml INHALATION RT-QID each Budesonide [Pulmicort] 1 mg INHALATION RT-BID ml Metoprolol Succinate (ER) [Toprol XL] 25 mg PO DAILY tab Continue Quinapril HCl [Accupril] 10 mg PO DAILY Levothyroxine Sodium [Synthroid] 25 mcg PO DAILY Emtricitabine/Tenofov Alafenam [Descovy 200-25 mg Tablet] 1 tab PO HS traZODone HCL 150 mg PO HS Citalopram Hydrobromide [CeleXA] 40 mg PO DAILY Intelence 200mg 200 mg PO BID Diltiazem HCl [Diltiazem HCl 24Hr ER] 360 mg PO DAILY Gabapentin 800 mg PO TID Cetirizine HCl [Zyrtec] 10 mg PO DAILY Baclofen [Lioresal] 20 mg PO QID buPROPion XL [Wellbutrin XL] 300 mg PO DAILY Morphine Sulfate Ir [MSIR] 15 mg PO QID Dolutegravir Sodium [Tivicay] 50 mg PO HS Ipratropium [place] 0.06%Nasal [Atrovent Nasal 0.06%] 2 spray EA NOSTRIL BID Phentermine HCl [Adipex-P] 37.5 mg PO DAILY Docusate Sodium [Dok] 100 mg PO DAILY Discontinued Triamterene/Hydrochlorothiazid [Triamterene-Hctz 37.5-25 mg Tb] 1 tab PO DAILY Mupirocin 2% Oint [Bactroban 2% Oint] 1 applic TOPICAL BID PRN PRN Reason: Skin Irritation Cephalexin [Keflex] 500 mg PO Q6H Discharge Medication List Quinapril HCl [Accupril] 10 mg PO DAILY 05/31/16 [History] Emtricitabine/Tenofov Alafenam [Descovy 200-25 mg Tablet] 1 tab PO HS 09/01/18 [History] Levothyroxine Sodium [Synthroid] 25 mcg PO DAILY 09/01/18 [History] traZODone HCL 150 mg PO HS 09/01/18 [History] Citalopram Hydrobromide [CeleXA] 40 mg PO DAILY 03/31/19 [History] Diltiazem HCl [Diltiazem HCl 24Hr ER] 360 mg PO DAILY 03/31/19 [History] Intelence 200mg 200 mg PO BID 03/31/19 [History] Baclofen [Lioresal] 20 mg PO QID 11/22/20 [History] Cetirizine HCl [Zyrtec] 10 mg PO DAILY 11/22/20 [History] Gabapentin 800 mg PO TID 11/22/20 [History] Morphine Sulfate Ir [MSIR] 15 mg PO QID 05/10/21 [History] Dolutegravir Sodium [Tivicay] 50 mg PO HS 08/14/21 [History] Ipratropium [place] 0.06%Nasal [Atrovent Nasal 0.06%] 2 spray EA NOSTRIL BID 08/14/21 [History] Docusate Sodium [Dok] 100 mg PO DAILY 10/23/21 [History] Phentermine HCl [Adipex-P] 37.5 mg PO DAILY 10/23/21 [History] buPROPion XL [Wellbutrin XL] 300 mg PO DAILY 10/23/21 [History] Aspirin 81 mg PO DAILY tab 11/04/21 [Rx] Atorvastatin [Lipitor] 40 mg PO HS tab 11/04/21 [Rx] Budesonide [Pulmicort] 1 mg INHALATION RT-BID ml 11/04/21 [Rx] Clopidogrel [Plavix] 75 mg PO DAILY tab 11/04/21 [Rx] Furosemide [Lasix] 40 mg PO BID@0900,1600 tab 11/04/21 [Rx] Ipratropium-Albuterol Nebulize [Duoneb 0.5 mg-3 mg/3 ml Soln] 3 ml INHALATION RT-QID each 11/04/21 [Rx] Metoprolol Succinate (ER) [Toprol XL] 25 mg PO DAILY tab 11/04/21 [Rx] Nitroglycerin Sl Tabs [Nitrostat] 0.4 mg SUBLINGUAL Q5M PRN tab 11/04/21 [Rx] Rivaroxaban [Xarelto] 15 mg PO BID tab 11/04/21 [Rx] predniSONE [Deltasone] 40 mg PO DAILY tab 11/04/21 [Rx] Follow up Appointment(s)/Referral(s): Richard Solomon DO [STAFF PHYSICIAN] - 1 Week Daniela Rojo MD [Primary Care Provider] - 1-2 days Janelle Choe MD [STAFF PHYSICIAN] - 1 Week
[2021-11-04 17:41] VITALS: PULSE 70; RESP 16; TEMP 97.8
== END 2021-11-04 18:55 | disposition home or self-care (01) | DRG 216 ==
LOC: EC 19:05 → 6NMEDSUR 22:20 → 3SCARD 10-24 09:53 → OBSVTOIN 10-25 13:40 → 2SICU 10-26 09:11 → 3SCARD 11-01 04:56
PROVIDERS: ADMIT Internal Medicine; ATTEND Internal Medicine
PROC: B2111ZZ Fluoroscopy of Multiple Coronary Arteries using Low Osmolar Contrast (ICD-10-PCS; 2021-10-24)
PROC: 4A023N7 Measurement of Cardiac Sampling and Pressure, Left Heart, Percutaneous Approach (ICD-10-PCS; 2021-10-24)
PROC: 02HA3RJ Insertion of Short-term External Heart Assist System into Heart, Intraoperative, Percutaneous Approach (ICD-10-PCS; principal; 2021-10-26 09:30)
PROC: 027034Z Dilation of Coronary Artery, One Artery with Drug-eluting Intraluminal Device, Percutaneous Approach (ICD-10-PCS; principal; 2021-10-26 09:30)
PROC: 02703ZZ Dilation of Coronary Artery, One Artery, Percutaneous Approach (ICD-10-PCS; principal; 2021-10-26 09:30)
PROC: 5A0221D Assistance with Cardiac Output using Impeller Pump, Continuous (ICD-10-PCS; principal; 2021-10-26 09:30)
PROC: 4A023N7 Measurement of Cardiac Sampling and Pressure, Left Heart, Percutaneous Approach (ICD-10-PCS; principal; 2021-10-26 09:30)
PROC: 02C03ZZ Extirpation of Matter from Coronary Artery, One Artery, Percutaneous Approach (ICD-10-PCS; principal; 2021-10-26 09:30)
PROC: B2111ZZ Fluoroscopy of Multiple Coronary Arteries using Low Osmolar Contrast (ICD-10-PCS; principal; 2021-10-26 09:30)
PROC: B241ZZ3 Ultrasonography of Multiple Coronary Arteries, Intravascular (ICD-10-PCS; principal; 2021-10-26 09:30)
DX: I25.110 Atherosclerotic heart disease of native coronary artery with unstable angina pectoris (principal); J96.01 Acute respiratory failure with hypoxia; I26.99 Other pulmonary embolism without acute cor pulmonale; J44.1 Chronic obstructive pulmonary disease with (acute) exacerbation; J98.11 Atelectasis; B20 Human immunodeficiency virus [HIV] disease; Z68.42 Body mass index [BMI] 45.0-49.9, adult; E87.1 Hypo-osmolality and hyponatremia; I44.0 Atrioventricular block, first degree; I45.10 Unspecified right bundle-branch block; K21.9 Gastro-esophageal reflux disease without esophagitis; I11.9 Hypertensive heart disease without heart failure; M19.90 Unspecified osteoarthritis, unspecified site; E03.9 Hypothyroidism, unspecified; T46.1X5A Adverse effect of calcium-channel blockers, initial encounter; E11.42 Type 2 diabetes mellitus with diabetic polyneuropathy; E66.9 Obesity, unspecified; E87.70 Fluid overload, unspecified; F17.210 Nicotine dependence, cigarettes, uncomplicated; F41.0 Panic disorder [episodic paroxysmal anxiety]; F31.9 Bipolar disorder, unspecified; G89.29 Other chronic pain; Z79.02 Long term (current) use of antithrombotics/antiplatelets; Z79.82 Long term (current) use of aspirin; Z79.890 Hormone replacement therapy; Z79.899 Other long term (current) drug therapy; Z80.0 Family history of malignant neoplasm of digestive organs; Z82.49 Family history of ischemic heart disease and other diseases of the circulatory system; Z83.3 Family history of diabetes mellitus; Z95.5 Presence of coronary angioplasty implant and graft; Z60.2 Problems related to living alone; Z88.1 Allergy status to other antibiotic agents; Z88.2 Allergy status to sulfonamides
CPT/HCPCS: 36415; 71045; 71046; 71275; 80048; 80053; 80061; 80074; 81003; 83036; 83735; 83880; 84100; 84145; 84443; 84484; 85025; 85610; 85730; 86360; 93005; 93306; 93458; 94150; 94640; 94660; 96365; 96375; 99285

== ENCOUNTER → 2022-01-06 | Outpatient (CLI) | payer MEDICARE, OTHER ==
[2022-01-06 19:38] LABS: HCT 48.8 % (39.6-50.0); HGB 15.6 g/dL (13.0-17.0); MCH 27.4 pg (27.0-32.0); MCV 85.8 fL (80.0-97.0); Mean Platelet Volume 9.8 fL (9.5-12.2); NRBC Per 100 WBC 0 /100 WBCS (0.0-0.0); Platelet Count 272 X 10*3/uL (140-440); RBC 5.69 X 10*6/uL (4.40-5.60); RDW 14.4 % (11.5-14.5); WBC 11.12 X 10*3/uL (4.50-10.00)
[2022-01-06 20:00] LABS: African American GFR (CKD) 87.6 (60.0-200.0); Albumin 4.3 g/dL (3.8-4.9); Anion Gap 11.1 mmol/L (10.00-18.00); BUN/Creat Ratio 18.88 Ratio (12.00-20.00); Blood Urea Nitrogen 20.2 mg/dL (9.0-27.0); Calcium 9.9 mg/dL (8.7-10.3); Carbon Dioxide 28.6 mmol/L (20.0-27.5); Potassium 4.3 mmol/L (3.5-5.5)
[2022-01-06 20:51] LABS: Non-African American GFR(CKD) 75.6 (60.0-200.0); Phosphorus 4.5 mg/dL (2.4-5.1)
== END | disposition home or self-care (01) ==
LOC: LABWHC1 12:29
PROVIDERS: ATTEND Internal Medicine
DX: I25.10 Atherosclerotic heart disease of native coronary artery without angina pectoris (principal)
CPT/HCPCS: 36415; 80069; 85027

== ENCOUNTER 2022-01-07 10:32 | Observation (INO) | payer MEDICARE, OTHER ==
[2022-01-02 12:01] VITALS: BMI 44.2
[~2022-01-07 10:32] MED LIST: ALPRAZolam 0.25 MG TAB PO PRN; ALPRAZolam 0.5 MG TAB PO PRN; ASPIRIN 325 MG TAB PO ONE; ATORVASTATIN 80 MG TAB PO ONE; HEPARIN SODIUM,PORCINE 10,000 UNIT in SODIUM CHLORIDE 0.9% 1,000 ML IRRIGATION PRN; HEPARIN SODIUM,PORCINE 2,500 UNIT in SODIUM CHLORIDE 0.9% 250 ML IRRIGATION PRN; NITROGLYCERIN SL TABS 0.4 MG TAB SUBLINGUAL PRN
[2022-01-07] MEDS ORDERED: SODIUM CHLORIDE 0.9% 1,000 ML IV ONE (10:59)
[2022-01-07 11:16] LABS: Basophils # (A) 0.1 k/uL (0-0.2); Basophils % (A) 1 %; Eosinophils # (A) 0.4 k/uL (0-0.7); Eosinophils % (A) 4 %; HCT 48.9 % (39.0-53.0); HGB 15.9 gm/dL (13.0-17.5); Hypochromasia Slight; Lymphocytes # (A) 1.8 k/uL (1.0-4.8); Lymphocytes % (A) 16 %; MCH 28.5 pg (25.0-35.0); MCHC 32.5 g/dL (31.0-37.0); MCV 87.8 fL (80.0-100.0); Mean Platelet Volume 7.1; Monocytes # (A) 0.7 k/uL (0-1.0); Monocytes % (A) 6 %; Neutrophils # (A) 7.8 k/uL (1.3-7.7); Neutrophils % (A) 70 %; Platelet Count 256 k/uL (150-450); RBC 5.57 m/uL (4.30-5.90); RDW 14.4 % (11.5-15.5); WBC 11.1 k/uL (3.8-10.6)
[2022-01-07 11:27] LABS: African American GFR (CKD) >90 (>60 ml/min/1.73 sqM); Anion Gap 9 mmol/L; Blood Urea Nitrogen 18 mg/dL (9-20); Calcium 9.5 mg/dL (8.4-10.2); Carbon Dioxide 26 mmol/L (22-30); Chloride 102 mmol/L (98-107); Glucose 99 mg/dL (74-99); Non-African American GFR(CKD) 90 (>60 ml/min/1.73 sqM); Potassium 4.5 mmol/L (3.5-5.1); Sodium 137 mmol/L (137-145)
[2022-01-07] MEDS ORDERED: fentaNYL (PF) 50 MCG/ML 2 ML AMP ONE ×2 (12:32→14:10)
[2022-01-07] MEDS ORDERED: HEPARIN SODIUM 1,000 UN/ML (10ML VL) ONE (12:32)
[2022-01-07] MEDS ORDERED: VERAPAMIL 2.5 MG/ML 2 ML AMP ONE (12:32)
[2022-01-07] MEDS ORDERED: LIDOCAINE 1% INJ 10MG/ML (20 ML MDV) SQ ONE ×2 (13:10→13:17)
[2022-01-07] MEDS: fentaNYL (PF) 50 MCG/ML 2 ML AMP IV ONE ×2 (13:12→14:06)
[2022-01-07] MEDS ORDERED: MIDAZOLAM 2 MG/2 ML VIAL IV ONE ×2 (13:13→13:23)
[2022-01-07] MEDS ORDERED: fentaNYL (PF) 50 MCG/ML 2 ML AMP IV ONE (13:22)
[2022-01-07] MEDS ORDERED: HEPARIN SODIUM 1,000 UN/ML (10ML VL) IV ONE (13:50)
[2022-01-07] MEDS: HEPARIN SODIUM 1,000 UN/ML (10ML VL) IV ONE ×2 (14:06→14:28)
[2022-01-07] MEDS ORDERED: HYDROmorphone (PF) 1 MG/ML ONE (14:10)
[2022-01-07] MEDS ORDERED: PROPOFOL 10 MG/ML 20 ML VIAL IV ONE (14:10)
[2022-01-07] MEDS ORDERED: KETAMINE 10 MG/ML 20 ML VIAL ONE (14:10)
[2022-01-07] MEDS ORDERED: MIDAZOLAM 2 MG/2 ML VIAL ONE (14:10)
[2022-01-07] MEDS ORDERED: IOPAMIDOL-370 125ML BTL INJ ONE ×2 (15:21→15:47)
[2022-01-07 15:58] VITALS: RESP 18
[2022-01-07] MEDS: SODIUM CHLORIDE 0.9% 1,000 ML in EMPTY BAG 1 BAG IV SCH ×2 (16:17→16:18)
[2022-01-07] MEDS ORDERED: HYDROmorphone 1 MG/ML 1 ML SYRINGE IVP STA (16:39)
[2022-01-07] MEDS: BACLOFEN 10 MG TAB PO SCH (20:37)
[2022-01-07] MEDS: GABAPENTIN 400 MG CAP PO SCH (20:37)
[2022-01-07] MEDS: HYDROmorphone 1 MG/ML 1 ML SYRINGE IVP PRN (20:38)
[2022-01-07] MEDS ORDERED: traZODone HCL 50 MG TAB PO SCH (21:00)
[2022-01-08] MEDS: HYDROmorphone 1 MG/ML 1 ML SYRINGE IVP PRN ×3 (00:56→15:15)
--- NOTE | 2022-01-08 03:15 | P.CARDCATH ---
Description of Procedure: PROCEDURES PERFORMED: Bilateral coronary angiography, attempted PCI COMMUNITY DEVELOPMENT DIRECTOR RCA INDICATION: Coronary artery disease with continued chest pain, [place] Heart Association class 3-4 symptoms CONSENT:I have discussed the risks, benefits and alternative therapies for the above-mentioned procedure and for both sedation/analgesia as well as necessary blood product administration, if indicated, as they pertain to this patient. The patient has indicated understanding and acceptance of the risks and procedures discussed. PROCEDURE: After the risks, benefits and alternatives of the above mentioned procedure explained in detail with the patient, informed consent was obtained. Patient was taken to the catheterization lab and prepped and draped in usual fashion. 1% lidocaine was used to anesthetize the right radial artery. Unable to successfully place right radial sheath and therefore the left radial artery was used. Using modified Seldinger technique a left 6-[place]izen [place] sheath was placed. An 8-[place] sheath was placed in the left femoral artery using modified Seldinger technique given patient had severe knee pain and unable to fully extend his leg. Patient complaining of pain throughout the procedure with inability to lie still and therefore anesthesia was called to help with sedation. A 6-[place] 4 diagnostic catheter was used to engage the left main. An 8-[place] 0.75 guide was used to engage the RCA. A 0.014 fielder XT A wire in a Corsair in a 6 Fr Guideliner was initially attempted to be advanced. The COMMUNITY DEVELOPMENT DIRECTOR was at a severe proximally 90 bend with difficulty engaging the nub. A commercial pilot 200 as well as a Aretha 2 wire was additionally use. Multiple attempts were made at antegrade axis with retrograde injections showing wire was not intraluminal. Given prolonged procedure time, contrast and radiation as well as patient's difficulty lying flat, further attempts were abandoned and the procedure was finished. There were no great septal collaterals to go retrograde. Consideration of future attempts antegrade. The wire was pulled. A left femoral angiogram showed anatomy adequately for closure and therefore a 8-[place]izen [place] Angio-Seal was placed with hemostasis achieved. The left radial sheath was removed and a TR band was placed with hemostasis achieved. The patient tolerated the procedure well. Patient was transported back to the post catheterization holding area in stable condition. Conscious Sedation: Patient was monitored under the direct supervision of myself for conscious sedation using Versed and fentanyl for a total duration of 148 minutes HEMODYNAMICS: Aorta: 134/78 SELECTIVE CORONARY ARTERIOGRAPHY: LEFT MAIN: The left main is a large caliber vessel which bifurcates into the LAD and circumflex. There is a distal left main stent which is widely patent. LEFT ANTERIOR DESCENDING CORONARY ARTERY: LAD is a large caliber vessel which wraps around to the apex. There is proximal LAD 30% stenosis and otherwise mild luminal irregularities. There are [id number] collaterals. LEFT CIRCUMFLEX CORONARY ARTERY: Left circumflex is a moderate caliber vessel. There is proximal circumflex 40-50% stenosis. The circumflex gives off a high OM 1 without significant stenosis and then the circumflex gives off a small to moderate caliber OM 2 with more proximal circumflex 40-50% stenosis just after OM1. RIGHT CORONARY ARTERY: The right coronary artery has a 100% proximal RCA stenosis. FINAL IMPRESSION: 1. CAD as described above including 100% proximal RCA COMMUNITY DEVELOPMENT DIRECTOR, 40-50% circumflex, LAD 30% stenosis, patent left main stent 2. Unsuccessful attempted PCI COMMUNITY DEVELOPMENT DIRECTOR RCA PLAN: 1. Aggressive risk factor modification per most recent ACC/AHA guidelines. 2. Patient without adequate collaterals for possible retrograde attempt. Consider ringing patient back for further attempted antegrade or medical therapy. Patient with severe hip pain and would likely require anesthesia for repeat attempt at intervention.
[2022-01-08] MEDS: SODIUM CHLORIDE 0.9% 1,000 ML in EMPTY BAG 1 BAG IV SCH ×2 (05:17→09:31)
[2022-01-08] MEDS ORDERED: LEVOTHYROXINE 25 MCG TAB PO SCH (06:30)
[2022-01-08] MEDS ORDERED: RIVAROXABAN 20 MG TAB PO SCH (09:00)
[2022-01-08] MEDS ORDERED: CITALOPRAM HYDROBROMIDE 20 MG TAB PO SCH (09:00)
[2022-01-08] MEDS ORDERED: CLOPIDOGREL 75 MG TAB PO SCH (09:00)
[2022-01-08] MEDS ORDERED: buPROPion XL 300 MG TAB.ER.24H PO SCH (09:00)
[2022-01-08] MEDS ORDERED: ASPIRIN 81 MG PO SCH (09:00)
[2022-01-08] MEDS ORDERED: METOPROLOL SUCCINATE (ER) 25 MG TAB.ER.24H PO SCH (09:00)
[2022-01-08] MEDS: GABAPENTIN 400 MG CAP PO SCH ×2 (09:27→16:34)
[2022-01-08] MEDS: BACLOFEN 10 MG TAB PO SCH (09:28)
--- NOTE | 2022-01-08 11:59 | P.DS ---
Providers Date of admission: 01/08/22 08:18 Attending physician: Richard Solomon DO Primary care physician: [facility]: This is a 61-year-old male who underwent cardiac catheterization with Dr. Solomon yesterday. Patient was found to have coronary artery disease including 100% proximal RCA are 4-year-old, 40-50% circumflex, 30% LAD stenosis, and patent left main stent. PCI of the FUR NAILER RCA was attempted but was unsuccessful. Medical management has been recommended. Discussed possibility of bringing patient back for an additional attempted PCI but would likely require general anesthesia as patient has severe hip pain. At this time, the patient denies any chest pain or pressure. He denies any shortness of breath. Vital signs are stable. The patient may be discharged home this afternoon with close outpatient follow-up. Discharge diagnosis #1 coronary artery disease #2 unsuccessful attempted PCI FUR NAILER RCA Nurse practitioner note has been reviewed by physician. Signing provider agrees with the documented findings, assessment, and plan of care. Plan - Discharge Summary Discharge Rx Participant: No New Discharge Prescriptions: No Action Levothyroxine Sodium [Synthroid] 25 mcg PO DAILY Emtricitabine/Tenofov Alafenam [Descovy 200-25 mg Tablet] 1 tab PO HS traZODone HCL 150 mg PO HS Citalopram Hydrobromide [CeleXA] 40 mg PO DAILY Gabapentin 800 mg PO TID Cetirizine HCl [Zyrtec] 10 mg PO DAILY Baclofen [Lioresal] 20 mg PO QID buPROPion XL [Wellbutrin XL] 300 mg PO DAILY Aspirin 81 mg PO DAILY tab Furosemide [Lasix] 40 mg PO BID@0900,1600 tab Atorvastatin [Lipitor] 40 mg PO HS tab Nitroglycerin Sl Tabs [Nitrostat] 0.4 mg SUBLINGUAL Q5M PRN tab PRN Reason: Chest Pain Clopidogrel [Plavix] 75 mg PO DAILY tab Morphine Sulfate Ir [MSIR] 15 mg PO QID Dolutegravir Sodium [Tivicay] 50 mg PO HS Ipratropium [place] 0.06%Nasal [Atrovent Nasal 0.06%] 2 spray EA NOSTRIL BID Phentermine HCl [Adipex-P] 37.5 mg PO DAILY Docusate Sodium [Dok] 100 mg PO DAILY Ipratropium-Albuterol Nebulize [Duoneb 0.5 mg-3 mg/3 ml Soln] 3 ml INHALATION RT-QID each Budesonide [Pulmicort] 1 mg INHALATION RT-BID ml Metoprolol Succinate (ER) [Toprol XL] 25 mg PO DAILY tab Rivaroxaban [Xarelto] 20 mg PO DAILY Etravirine 200 mg PO BID Discharge Medication List Emtricitabine/Tenofov Alafenam [Descovy 200-25 mg Tablet] 1 tab PO HS 09/01/18 [History] Levothyroxine Sodium [Synthroid] 25 mcg PO DAILY 09/01/18 [History] traZODone HCL 150 mg PO HS 09/01/18 [History] Citalopram Hydrobromide [CeleXA] 40 mg PO DAILY 03/31/19 [History] Baclofen [Lioresal] 20 mg PO QID 11/22/20 [History] Cetirizine HCl [Zyrtec] 10 mg PO DAILY 11/22/20 [History] Gabapentin 800 mg PO TID 11/22/20 [History] Morphine Sulfate Ir [MSIR] 15 mg PO QID 05/10/21 [History] Dolutegravir Sodium [Tivicay] 50 mg PO HS 08/14/21 [History] Ipratropium [place] 0.06%Nasal [Atrovent Nasal 0.06%] 2 spray EA NOSTRIL BID 08/14/21 [History] Docusate Sodium [Dok] 100 mg PO DAILY 10/23/21 [History] Phentermine HCl [Adipex-P] 37.5 mg PO DAILY 10/23/21 [History] buPROPion XL [Wellbutrin XL] 300 mg PO DAILY 10/23/21 [History] Aspirin 81 mg PO DAILY tab 11/04/21 [Rx] Atorvastatin [Lipitor] 40 mg PO HS tab 11/04/21 [Rx] Budesonide [Pulmicort] 1 mg INHALATION RT-BID ml 11/04/21 [Rx] Clopidogrel [Plavix] 75 mg PO DAILY tab 11/04/21 [Rx] Furosemide [Lasix] 40 mg PO BID@0900,1600 tab 11/04/21 [Rx] Ipratropium-Albuterol Nebulize [Duoneb 0.5 mg-3 mg/3 ml Soln] 3 ml INHALATION RT-QID each 11/04/21 [Rx] Metoprolol Succinate (ER) [Toprol XL] 25 mg PO DAILY tab 11/04/21 [Rx] Nitroglycerin Sl Tabs [Nitrostat] 0.4 mg SUBLINGUAL Q5M PRN tab 11/04/21 [Rx] Etravirine 200 mg PO BID 01/02/22 [History] Rivaroxaban [Xarelto] 20 mg PO DAILY 01/02/22 [History] Follow up Appointment(s)/Referral(s): Richard Solomon DO [STAFF PHYSICIAN] - 01/16/22 11:15 am Patient Instructions/Handouts: Coronary Intravascular Stent Placement (GEN), Procedural Sedation (ED), Left Heart Catheterization (DC)
[2022-01-08 15:15] VITALS: BP 128/75; PULSE 84; TEMP 97.3
[2022-01-08] MEDS ORDERED: ATORVASTATIN 40 MG TAB PO SCH (21:00)
== END 2022-01-08 17:11 | disposition home or self-care (01) ==
LOC: CATHCVL 10:32 → 3SCARD 15:30 → CATHCVL 01-08 08:18 → 3SCARD 01-08 08:18
PROVIDERS: ADMIT Internal Medicine; ATTEND Internal Medicine
DX: I25.10 Atherosclerotic heart disease of native coronary artery without angina pectoris (principal); I25.82 Chronic total occlusion of coronary artery; Z20.822 Contact with and (suspected) exposure to COVID-19
CPT/HCPCS: 96376; 96374; 80048; 85025; 87635; 93460; G0378; C9607; C1769 ×8; C1760; C1894 ×2; C1887 ×3; C1751; J2250; J2001; J3010; J1644; J1170 ×2; J2704; Q9967

== ENCOUNTER → 2023-03-17 | Outpatient (CLI) | payer MEDICARE, OTHER ==
--- NOTE | 2023-03-17 16:20 | BD ---
EXAMINATION TYPE: Axial Bone Density DATE OF EXAM: 03/17/2023 CLINICAL HISTORY: 62 years old Male. ICD-10 CODE: M85.88 OTH DISRD OF BONE DENSITY AND STRUCTURE, OT Height: 63 Weight: 205 FRAX RISK QUESTIONS: Alcohol (3 or more units per day): no Family History (Parent hip fracture): no Glucocorticoids (More than 3mos): no (Ex: prednisone, prednisolone, methylprednisolone, dexamethasone, and hydrocortisone). History of Fracture in Adulthood: no Secondary Osteoporosis: 1. Type 1 Diabetes: no 2. Hyperthyroidism: no 3. Menopause before 45: n/a 4. Malnutrition: no 5. Chronic liver disease: no Rheumatoid Arthritis: no Current Tobacco Use: yes RISK FACTORS HISTORY OF: Surgery to Spine/Hip(right/left)/Wrist (right/left): cspine Family History of Osteoporosis: yes Lost more than 2 inches in height since high school: yes Additional History: EXAM MEASUREMENTS: Bone mineral densitometry was performed using the [employer] System. Bone mineral density as measured about the Lumbar spine is: ----- L1-L4(G/cm2): 1.041 T Score Values are as follows: ----- L1: -1.9 ----- L2: -0.6 ----- L3: -1.5 ----- L4: -1.1 ----- L1-L4: -1.2 Z Score Values are as follows: ----- L1: -2.3 ----- L2: -1.1 ----- L3: -2.0 ----- L4: -1.6 ----- L1-L4: -1.6 Bone mineral density : baseline Bone mineral density about the R Wrist (g/cm2): 0.688 T Score values are as follows: -----Dist. R+U: -0.1 -----Prox. R+U: -2.3 -----Radius total: -0.9 Z Score values are as follows: -----Dist. R+U: 0.3 -----Prox. R+U: -1.9 -----Radius total: -0.5 Bone mineral density : baseline IMPRESSION: Osteopenia (T Score between -2.5 and -1). There is slightly increased risk of fracture and the patient may be considered for treatment. Re-Screen 2-5 years. NOTE: T-SCORE=SD OF THE YOUNG ADULT MEAN.
== END | disposition home or self-care (01) ==
LOC: RADBDWWP 15:15
PROVIDERS: ATTEND Internal Medicine
DX: M85.89 Other specified disorders of bone density and structure, multiple sites (principal)
CPT/HCPCS: 77080

== ENCOUNTER → 2023-07-08 | Outpatient (CLI) | payer MEDICARE, OTHER ==
--- NOTE | 2023-07-08 19:42 | XR ---
EXAMINATION TYPE: XR shoulder complete LT DATE OF EXAM: 07/08/2023 7:24 PM CLINICAL INDICATION:Male, 62 years old with history of M542, M2512, [id number], [id number], M5450, [id number], M2 5561; [facility] COMPARISON: None TECHNIQUE: XR shoulder complete LT; examined in AP, internally rotated and scapular Y projections. FINDINGS: No evidence of acute osseous pathology, joint dislocation, or soft tissue swelling. The remaining po rtions of the visualized chest are unremarkable. Mild degeneration changes of the left acromion, dis royce clavicle with osteophyte formation. There is osteophyte formation of the glenoid and humeral head . There is joint space narrowing of glenohumeral joint IMPRESSION: No acute osseous pathology. Mild shoulder osteoarthrosis.
--- NOTE | 2023-07-08 19:43 | XR ---
EXAMINATION TYPE: XR cervical spine limited DATE OF EXAM: 07/08/2023 7:24 PM CLINICAL INDICATION:Male, 62 years old with history of M542, M2512, [id number], [id number], M5450, [id number], M2 5561; [facility] COMPARISON: None TECHNIQUE: The cervical spine was imaged in frontal, lateral, and odontoid. FINDINGS: Fixation changes noted in the cervical spine which appear intact. The osseous structures show normal alignment without evidence of an acute fracture. There are osteoph ytes noted throughout the cervical spine on the anterior and lateral aspects of the vertebral bodies. The intervertebral disk spaces are narrowed at multiple levels Pedicles are intact. Soft tissues ar e within normal limits. The odontoid appears intact. IMPRESSION: 1. No fracture or dislocation. 2. Mild to moderate degenerative disc disease changes of the cervical spine.
--- NOTE | 2023-07-08 19:45 | XR ---
EXAMINATION TYPE: XR Hip Bilateral Complete DATE OF EXAM: 07/08/2023 7:24 PM CLINICAL INDICATION:Male, 62 years old with history of M542, M2512, [id number], [id number], M5450, [id number], M2 5561; [facility] COMPARISON: None. TECHNIQUE: XR Hip Bilateral Complete; hip was examined in the frontal and lateral projections and a A P pelvis. FINDINGS: Deformity to the right acetabulum and right proximal femur with erosion changes. The femora l head is nearly completely eroded away. No acute fracture visualized. There is subluxation of the ri ght hip superiorly. The left hip also demonstrates degeneration changes with osteophyte formation and mild joint space te aring. No evidence of fracture. IMPRESSION: 1. No evidence for acute process. 2. Severe end-stage hip osteoarthrosis with deformity of the acetabulum and femur. 3. Mild left hip osteoarthrosis.
--- NOTE | 2023-07-08 19:46 | XR ---
EXAMINATION TYPE: XR lumbar spine 2 or 3V DATE OF EXAM: 07/08/2023 7:24 PM CLINICAL INDICATION:Male, 62 years old with history of M542, M2512, [id number], [id number], M5450, [id number], M2 5561; [facility] COMPARISON: 02/11/2021. TECHNIQUE: XR lumbar spine 2 or 3V - Frontal, lateral and coned in L5-S1 lateral views of the spine. FINDINGS: No evidence of any acute osseous pathology. No evidence of loss of vertebral body height i s seen. There is grade 1 anterolisthesis of L4 and L5 alignment of the lumbar vertebral bodies. Mild scattered disc space narrowing. Multilevel marginal osteophyte formation throughout the visualized sp ine. There is facet joint arthropathy throughout the spine. Scattered at least mild neural foraminal stenosis. Atherosclerosis of the arterial vasculature. IMPRESSION: 1. No acute fracture. 2. Moderate to severe multilevel disc degeneration. 3. Grade 1 and 2 of these L4 and L5.
--- NOTE | 2023-07-08 19:48 | XR ---
EXAMINATION TYPE: XR knee 4V bilateral DATE OF EXAM: 07/08/2023 7:24 PM CLINICAL INDICATION:Male, 62 years old with history of M542, M2512, [id number], [id number], M5450, [id number], M2 5561; [facility] COMPARISON: 09/10/2018 TECHNIQUE: XR knee 4V bilateral; examined in Frontal, lateral and oblique projections. FINDINGS: The is without evidence for fracture or significant degeneration changes. There is atherosclerosis of the arterial vasculature of the right lower extremity. The left knee demonstrate severe end-stage degeneration changes most pronounced in the lateral compar tment. No evidence of fracture. Severe osteophyte formation changes are present in all 3 compartments with suspected fabella and/or joint body posteriorly. IMPRESSION: 1. No acute osseous pathology. 2. End-stage left knee osteoarthrosis. 3. Mild right knee osteoarthrosis.
== END | disposition home or self-care (01) ==
LOC: RADXRMAIN 18:20
PROVIDERS: ATTEND Psychiatry & Neurology Neurology
DX: M54.2 Cervicalgia (principal); M25.512 Pain in left shoulder; M25.552 Pain in left hip; M25.551 Pain in right hip; M54.50 Low back pain, unspecified; M25.562 Pain in left knee; M25.561 Pain in right knee
CPT/HCPCS: 72040; 72100; 73521

== ENCOUNTER 2024-04-06 17:35 | Inpatient (IN) | payer MEDICARE, OTHER ==
[2024-04-06 17:43] LABS: Glucose,Whole Blood 128 mg/dL (70-110)
[2024-04-06] MEDS: SODIUM CHLORIDE 0.9% 1,000 ML IV ONE ×2 (17:58→23:40)
[2024-04-06 18:05] LABS: ABG Base Excess -15.9 mmol/L; ABG HCO3 17 mmol/L (21-25); ABG Oxygen Saturation 98.3 % (94-97); ABG PO2 179 mmHg (83-108); ABG TCO2 20 mmol/L (19-24); Allen Test Performed? Yes
[2024-04-06 18:11] LABS: ABG PCO2 75 mmHg (35-45); ABG PH 6.97 (7.35-7.45)
[2024-04-06 18:12] LABS: Basophils # (A) 0.1 k/uL (0-0.2); Basophils % (A) 1 %; Eosinophils # (A) 0.4 k/uL (0-0.7); Eosinophils % (A) 2 %; HCT 49.6 % (39.0-53.0); HGB 15.4 gm/dL (13.0-17.5); Hypochromasia Marked; Lymphocytes # (A) 3.9 k/uL (1.0-4.8); Lymphocytes % (A) 19 %; MCH 29.2 pg (25.0-35.0); MCV 94.4 fL (80.0-100.0); Mean Platelet Volume 7.4; Monocytes # (A) 1.5 k/uL (0-1.0); Monocytes % (A) 7 %; Neutrophils # (A) 14.1 k/uL (1.3-7.7); Neutrophils % (A) 69 %; Platelet Count 208 k/uL (150-450); RBC 5.25 m/uL (4.30-5.90); RDW 13.9 % (11.5-15.5); WBC 20.3 k/uL (3.8-10.6)
--- NOTE | 2024-04-06 18:18 | XR ---
EXAMINATION TYPE: XR chest 1V portable DATE OF EXAM: 04/06/2024 5:56 PM COMPARISON: Chest radiographs from 10/30/2021. CLINICAL INDICATION: Male, 63 years old with history of intubation; [facility] TECHNIQUE: XR chest 1V portable Frontal view of the chest. FINDINGS: Lungs/Pleura: There is no evidence of pleural effusion, focal consolidation, or pneumothorax. Pulmonary vascularity: Pulmonary vascular congestion. Heart/mediastinum: Cardiomediastinal silhouette is enlarged. Musculoskeletal: No acute osseous pathology. Other findings: None Lines/Tubes: Endotracheal tube with distal tip 5.0 cm above the [place]. Nasogastric tube with side-port projecting over the distal esophagus. IMPRESSION: 1. Nasogastric tube side-port in the distal esophagus consider advancement of 12 cm for optimal plac ement. 2. Endotracheal tube felt to be in satisfactory position. 3. Cardiomegaly. 4. Pulmonary edema. [facility], , 04/06/2024 6:16 PM
[2024-04-06 18:21] LABS: INR 1.1 (<1.2)
[2024-04-06 18:23] LABS: Appearance,Urine Cloudy (Clear); Bacteria,Urine Occasional /hpf; Bilirubin,Urine Negative (Negative); Blood,Urine Large (Negative); Color,Urine Light Yellow; Glucose,Urine (UA) Negative (Negative); Ketones,Urine 1+ (Negative); Leukocyte Esterase,Urine Negative (Negative); Mucus,Urine Few /hpf; Nitrite,Urine Negative (Negative); PH, Urine 5.5 (5.0-8.0); Protein,Urine 2+ (Negative); RBC,Urine 10 /hpf (0-5); Specific Gravity,Urine 1.015 (1.001-1.035); Squamous Epithelial Cell,Urine 1 /hpf (0-4); Urobilinogen,Urine <2.0 mg/dL (<2.0); WBC,Urine 16 /hpf (0-5)
[2024-04-06 18:28] LABS: AST 113 U/L (17-59); Acetaminophen <10.0 ug/mL; African American GFR (CKD) 72 (>60 ml/min/1.73 sqM); Albumin 4.6 g/dL (3.5-5.0); Alcohol <10 mg/dL; Alkaline Phosphatase 81 U/L (38-126); Anion Gap 17 mmol/L; Blood Urea Nitrogen 25 mg/dL (9-20); Calcium 9.2 mg/dL (8.4-10.2); Carbon Dioxide 17 mmol/L (22-30); Chloride 111 mmol/L (98-107); Creatine Kinase 620 U/L (55-170); Glucose 126 mg/dL (74-99); Lipase 86 U/L (23-300); Non-African American GFR(CKD) 62 (>60 ml/min/1.73 sqM); Potassium 3.3 mmol/L (3.5-5.1); Sodium 145 mmol/L (137-145)
[2024-04-06 18:37] LABS: ALT 66 U/L (4-49)
[2024-04-06 18:45] LABS: Amphetamine Screen,Urine Detected (NotDetected); Barbiturate Screen,Urine Not Detected (NotDetected); Benzodiazepines Screen,Urine Not Detected (NotDetected); Cocaine Screen,Urine Not Detected (NotDetected); Methadone Screen, Urine Not Detected (NotDetected); Opiate Screen,Urine Detected (NotDetected); Oxycodone Screen, Urine Not Detected (NotDetected); Phencyclidine Screen,Urine Not Detected (NotDetected); Tricyclic Antidepressant,Urine Not Detected (NotDetected); Urn Cannabinoid Scrn Not Detected (NotDetected)
--- NOTE | 2024-04-06 19:12 | CT ---
EXAMINATION TYPE: CT brain cspine wo con DATE OF EXAM: 04/06/2024 6:45 PM COMPARISON: None. CLINICAL INDICATION: Male, 63 years old with history of ams; AMS. Post Cardiac arrest. TECHNIQUE: Brain: Multiple axial CT images of the brain were obtained without IV contrast. Cspine: Axial CT images from the skull base to the inferior aspect of T2 we obtained without intraven ous contrast. Coronal and sagittal reformatted images were also reviewed. . CT DLP: 1621.3 mGycm, Automated exposure control for dose reduction was used. FINDINGS: Brain: Extra-axial spaces: Large high density extra axial fluid collection measuring up to 2.6 cm there is c ross filling of the basilar cisterns with early herniation through the brain stem. Component of subar achnoid hemorrhage may also be present some of the images. No definitive intraventricular hemorrhage visualized. Cerebral parenchyma: No acute intraparenchymal hemorrhage . The shay-white junction is well differen tiated. Cerebellum: Unremarkable. Mass effect: Rightward midline shift of 2.4 cm. Intracranial vasculature: unremarkable Soft tissues: Normal. Calvarium/osseous structures: No depressed skull fracture. Paranasal sinuses and mastoid air cells: Clear. Visualized orbits: Orbital contents are intact. Cervical spine: Fracture: No spinal fracture. Posterior left rib one fracture and lateral right rib one fractures.. Osseous structures: Multilevel degenerative disc disease changes with endplate spurring and disc oste ophyte complex's. Fixation hardware at C5-C6 and C7 hardware appears intact. Vertebral alignment: Within normal limits. Spinal canal/Neural Foramina: No evidence of significant spinal canal narrowing. No evidence for sign ificant neural foraminal stenosis. Neck soft tissues: Prevertebral soft tissues are within normal limits. Other: The airway is patent. The lung apices are clear. Support tubes identified in the esophagus and trachea. IMPRESSION: 1. Left acute subdural hemorrhage with subfalcine herniation and suspected earlier tonsillar herniat ion. 2. No evidence of cervical spine fracture. 3. Mild multilevel degenerative disc disease. 4. Posterior left and lateral right rib fractures.. Findings communicated to Dr. Lisa Jewell DO on 04/06/2024 7:[address] Dennis Dunn. [facility], Workstation: [id number], 04/06/2024 7:09 PM
[2024-04-06] MEDS: MIDAZOLAM 1 MG/ML 5 ML VIAL IV STA (19:26)
[2024-04-06] MEDS ORDERED: MORPHINE SULFATE 2 MG/ML SYRINGE IV PRN (20:24)
--- NOTE | 2024-04-06 20:25 | ED ---
General Adult HPI - General Chief complaint: Cardiac Arrest/CPR Stated complaint: Cardiac Arrest Time Seen by Provider: 04/06/24 17:40 Source: EMS Mode of arrival: EMS - History of Present Illness Initial comments: 63-year-old male with past medical history of HIV, COPD on chronic pain medications who presents emergency department as a cardiac arrest. The neighbor had seen the patient around noon and thought that he was acting off. She went back to his house around 5 PM and found him down on the ground. She started CPR and called EMS. Arrived on scene first and gave the patient intranasal Narcan. EMS arrived and found the patient to be in asystole. EMS did complete 2 rounds of CPR and gave 2 epinephrines. Patient went into PEA and then to a normal sinus rhythm. The neighbor is concerned that the patient takes too much of his pain medications. There was no external signs of trauma. Patient arrives intubated with a 7-1/2 ET tube, 23 cm nurse at the lip. No recent illnesses. Spoke with brother who talked to the patient yesterday. Remainder of HPI is limited because the patient's current condition - Related Data Home Medications Medication Instructions Recorded Confirmed Emtricitabine/Tenofov Alafenam 1 tab PO HS 09/01/18 01/07/22 [Descovy 200-25 mg Tablet] Levothyroxine Sodium [Synthroid] 25 mcg PO DAILY 09/01/18 01/07/22 traZODone HCL 150 mg PO HS 09/01/18 01/07/22 Citalopram Hydrobromide [CeleXA] 40 mg PO DAILY 03/31/19 01/07/22 Baclofen [Lioresal] 20 mg PO QID 11/22/20 01/07/22 Cetirizine HCl [Zyrtec] 10 mg PO DAILY 11/22/20 01/07/22 Gabapentin 800 mg PO TID 11/22/20 01/07/22 Morphine Sulfate Ir [MSIR] 15 mg PO QID 05/10/21 01/07/22 Dolutegravir Sodium [Tivicay] 50 mg PO HS 08/14/21 01/07/22 Ipratropium [place] Line 0.06%Nasal 2 spray EA NOSTRIL BID 08/14/21 01/07/22 [Atrovent Nasal 0.06%] Docusate Sodium [Dok] 100 mg PO DAILY 10/23/21 01/02/22 Phentermine HCl [Adipex-P] 37.5 mg PO DAILY 10/23/21 01/07/22 buPROPion XL [Wellbutrin XL] 300 mg PO DAILY 10/23/21 01/07/22 Etravirine 200 mg PO BID 01/02/22 01/07/22 Rivaroxaban [Xarelto] 20 mg PO DAILY 01/02/22 01/07/22 Previous Rx's Medication Instructions Recorded Aspirin 81 mg PO DAILY tab 11/04/21 Atorvastatin [Lipitor] 40 mg PO HS tab 11/04/21 Budesonide [Pulmicort] 1 mg INHALATION RT-BID ml 11/04/21 Clopidogrel [Plavix] 75 mg PO DAILY tab 11/04/21 Furosemide [Lasix] 40 mg PO BID@0900,1600 tab 11/04/21 Ipratropium-Albuterol Nebulize 3 ml INHALATION RT-QID each 11/04/21 [Duoneb 0.5 mg-3 mg/3 ml Soln] Metoprolol Succinate (ER) [Toprol 25 mg PO DAILY tab 11/04/21 XL] Nitroglycerin Sl Tabs [Nitrostat] 0.4 mg SUBLINGUAL Q5M PRN tab 11/04/21 Allergies Allergy/AdvReac Type Severity Reaction Status Date / Time azithromycin Allergy Rash/Hives Verified 04/06/24 17:43 [From Zithromax Z-Simone] Sulfa (Sulfonamide Allergy Rash/Hives Verified 04/06/24 17:43 Antibiotics) Review of Systems ROS Statement: Those systems with pertinent positive or pertinent negative responses have been documented in the HPI. ROS Other: All systems not noted in ROS Statement are negative. Past Medical History Past Medical History: COPD, GERD/Reflux, Hypertension, Osteoarthritis (OA), Slee p Apnea/CPAP/BIPAP Additional Past Medical History / Comment(s): HIV/AIDS(1990) back pain, neuropathy,sleep apnea, ARTHRITIS History of Any Multi-Drug Resistant Organisms: None Reported Past Surgical History: Heart Catheterization With Stent Additional Past Surgical History / Comment(s): neck surgery, throat surgery, Past Anesthesia/Blood Transfusion Reactions: No Reported Reaction Date of Last Stent Placement:: 10/2021 Past Psychological History: Bipolar, Depression, Panic Disorder Smoking Status: Current every day smoker - Past Family History Brother(s) Family Medical History: Diabetes Mellitus Father Family Medical History: Cancer Additional Family Medical History / Comment(s): Father of throat cancer. Mother Additional Family Medical History / Comment(s): Mother of a ruptured brain aneurysm. Course Vital Signs 04/06/24 04/06/24 04/06/24 17:38 17:40 17:52 Temperature Pulse Rate 110 H Respiratory 18 Rate Blood Pressure 158/70 O2 Sat by Pulse 100 Oximetry Fraction of 100 100 Inspired Oxygen (FIO2) 04/06/24 04/06/24 04/06/24 17:57 18:09 18:12 Temperature 95.2 F L Pulse Rate 118 H 112 H Respiratory 14 20 Rate Blood Pressure 155/80 163/80 O2 Sat by Pulse 99 97 Oximetry Fraction of 60 Inspired Oxygen (FIO2) 04/06/24 04/06/24 04/06/24 18:24 18:44 18:57 Temperature 94.5 F L 94.3 F L Pulse Rate 105 H 98 98 Respiratory 20 20 20 Rate Blood Pressure 137/68 157/86 123/83 O2 Sat by Pulse 100 100 94 L Oximetry Fraction of Inspired Oxygen (FIO2) 04/06/24 04/06/24 04/06/24 19:27 19:45 19:57 Temperature Pulse Rate 99 105 H Respiratory 20 18 Rate Blood Pressure 120/82 151/101 O2 Sat by Pulse 94 L 94 L Oximetry Fraction of 60 Inspired Oxygen (FIO2) 04/06/24 20:20 Temperature Pulse Rate 115 H Respiratory 20 Rate Blood Pressure 174/118 O2 Sat by Pulse 94 L Oximetry Fraction of Inspired Oxygen (FIO2) Procedures - Napoleon Protocol (Time Out) Nurse: Kathy Mg Medical Decision Making - Medical Decision Making Was pt. sent in by a medical professional or institution (, PA, HARDENING MACHINE OPERATOR, urgent care, hospital, or correction...) When possible be specific @ -[No] Did you speak to anyone other than the patient for history (EMS, parent, family, police, friend...)? What history was obtained from this source @ -[No] Did you review nursing and triage notes (agree or disagree)? Why? @ -[I reviewed and agree with nursing and triage notes] Were old charts reviewed (outside hosp., previous admission, EMS record, old EKG, old radiological studies, urgent care reports/EKG's, correction records)? Report findings @ -[No old charts were reviewed] Differential Diagnosis (chest pain, altered mental status, abdominal pain women, abdominal pain men, vaginal bleeding, weakness, fever, dyspnea, syncope, headache, dizziness, GI bleed, back pain, seizure, CVA, palpatations, mental health, musculoskeletal)? @ -[not applicable] EKG interpreted by me (3pts min.). @ -Yes and demonstrates a sinus rhythm with a rate of 111. P QRS 164. QTc of 463. No acute ST segment elevations or depressions. right bundle branch block. X-rays interpreted by me (1pt min.). @ -[None done] CT interpreted by me (1pt min.). @ -[None done] U/S interpreted by me (1pt. min.). @ -[None done] What testing was considered but not performed or refused? (CT, X-rays, U/S, lab s)? Why? @ -[None] What meds were considered but not given or refused? Why? @ -[None] Did you discuss the management of the patient with other professionals (professionals i.e. , PA, HARDENING MACHINE OPERATOR, lab, RT, psych nurse, outreach and education social worker, water treatment plant operator, teacher, armed security officer, correctional case records supervisor)? Give summary @ -[No] Was smoking cessation discussed for >3mins.? @ -[No] Was critical care preformed (if so, how long)? @ -[No] Were there social determinants of health that impacted care today? How? (Homelessness, low income, unemployed, alcoholism, drug addiction, transportation, low edu. Level, literacy, decrease access to med. care, custodial, rehab)? @ -[No] Was there de-escalation of care discussed even if they declined (Discuss DNR or withdrawal of care, Hospice)? DNR status @ -[No] What co-morbidities impacted this encounter? (DM, HTN, Smoking, COPD, CAD, Cancer, CVA, ARF, Chemo, Hep., AIDS, mental health diagnosis, sleep apnea, morbid obesity)? @ -[None] Was patient admitted / discharged? Hospital course, mention meds given and route, prescriptions, significant lab abnormalities, going to OR and other pertinent info. @ -[hospital course] Undiagnosed new problem with uncertain prognosis? @ -[No] Drug Therapy requiring intensive monitoring for toxicity (Heparin, Nitro, Insulin, Cardizem)? @ -[No] Were any procedures done? @ -[No] Diagnosis/symptom? @ -[default] Acute, or Chronic, or Acute on Chronic? @ -[default] Uncomplicated (without systemic symptoms) or Complicated (systemic symptoms)? @ -[default] Side effects of treatment? @ -[No] Exacerbation, Progression, or Severe Exacerbation? @ -[No] Poses a threat to life or bodily function? How? (Chest pain, [place], [place], pneumonia, PE, COPD, DKA, ARF, appy, cholecystitis, CVA, Diverticulitis, Homicidal, Suicidal, threat to staff... and all critical care pts) @ -[No] - Lab Data Result diagrams: 04/06/24 17:49 04/06/24 17:49 Lab Results 04/06/24 04/06/24 04/06/24 Range/Units 17:41 17:49 17:49 WBC 20.3 H (3.8-10.6) k/uL RBC 5.25 (4.30-5.90) m/uL Hgb 15.4 (13.0-17.5) gm/dL Hct 49.6 (39.0-53.0) % MCV 94.4 (80.0-100.0) fL MCH 29.2 (25.0-35.0) pg MCHC 31.0 (31.0-37.0) g/dL RDW 13.9 (11.5-15.5) % Plt Count 208 (150-450) k/uL MPV 7.4 Neutrophils % 69 % Lymphocytes % 19 % Monocytes % 7 % Eosinophils % 2 % Basophils % 1 % Neutrophils # 14.1 H (1.3-7.7) k/uL Lymphocytes # 3.9 (1.0-4.8) k/uL Monocytes # 1.5 H (0-1.0) k/uL Eosinophils # 0.4 (0-0.7) k/uL Basophils # 0.1 (0-0.2) k/uL Hypochromasia Marked PT 12.0 (10.0-12.5) sec INR 1.1 (<1.2) APTT 25.0 (22.0-30.0) sec Sample Site ABG pH (7.35-7.45) ABG pCO2 (35-45) mmHg ABG pO2 (83-108) mmHg ABG HCO3 (21-25) mmol/L ABG Total CO2 (19-24) mmol/L ABG O2 Saturation (94-97) % ABG Base Excess mmol/L Jung Test Hemoglobin (13.0-17.5) gm/dL FiO2 % Sodium (137-145) mmol/L Potassium (3.5-5.1) mmol/L Chloride (98-107) mmol/L Carbon Dioxide (22-30) mmol/L Anion Gap mmol/L BUN (9-20) mg/dL Creatinine (0.66-1.25) mg/dL Est GFR (CKD-EPI)AfAm (>60 ml/min/1.73 sqM) Est GFR (CKD-EPI)NonAf (>60 ml/min/1.73 sqM) Glucose (74-99) mg/dL POC Glucose (mg/dL) 128 H (70-110) mg/dL POC Glu Fish Bait Picker ID Blake Anamika Plasma Lactic Acid Aniceto (0.7-2.0) mmol/L Calcium (8.4-10.2) mg/dL Total Bilirubin (0.2-1.3) mg/dL AST (17-59) U/L ALT (4-49) U/L Alkaline Phosphatase (38-126) U/L Ammonia (<30) umol/L Creatine Kinase (55-170) U/L Troponin I (0.000-0.034) ng/mL Total Protein (6.3-8.2) g/dL Albumin (3.5-5.0) g/dL Lipase (23-300) U/L Urine Color Urine Appearance (Clear) Urine pH (5.0-8.0) Ur Specific [place] (1.001-1.035) Urine Protein (Negative) Urine Glucose (UA) (Negative) Urine Ketones (Negative) Urine Blood (Negative) Urine Nitrite (Negative) Urine Bilirubin (Negative) Urine Urobilinogen (<2.0) mg/dL Ur Leukocyte Esterase (Negative) Urine RBC (0-5) /hpf Urine WBC (0-5) /hpf Ur Squamous Epith Cells (0-4) /hpf Urine Bacteria (None) /hpf Urine Mucus (None) /hpf Urine Opiates Screen (NotDetected) Ur Oxycodone Screen (NotDetected) Urine Methadone Screen (NotDetected) Acetaminophen ug/mL Ur Barbiturates Screen (NotDetected) U Tricyclic Antidepress (NotDetected) Ur Phencyclidine Scrn (NotDetected) Ur Amphetamines Screen (NotDetected) U Methamphetamines Scrn (NotDetected) U Benzodiazepines Scrn (NotDetected) Urine Cocaine Screen (NotDetected) U Marijuana (THC) Screen (NotDetected) Serum Alcohol mg/dL 04/06/24 04/06/24 04/06/24 Range/Units 17:49 17:49 17:49 WBC (3.8-10.6) k/uL RBC (4.30-5.90) m/uL Hgb (13.0-17.5) gm/dL Hct (39.0-53.0) % MCV (80.0-100.0) fL MCH (25.0-35.0) pg MCHC (31.0-37.0) g/dL RDW (11.5-15.5) % Plt Count (150-450) k/uL MPV Neutrophils % % Lymphocytes % % Monocytes % % Eosinophils % % Basophils % % Neutrophils # (1.3-7.7) k/uL Lymphocytes # (1.0-4.8) k/uL Monocytes # (0-1.0) k/uL Eosinophils # (0-0.7) k/uL Basophils # (0-0.2) k/uL Hypochromasia PT (10.0-12.5) sec INR (<1.2) APTT (22.0-30.0) sec Sample Site ABG pH (7.35-7.45) ABG pCO2 (35-45) mmHg ABG pO2 (83-108) mmHg ABG HCO3 (21-25) mmol/L ABG Total CO2 (19-24) mmol/L ABG O2 Saturation (94-97) % ABG Base Excess mmol/L Jung Test Hemoglobin (13.0-17.5) gm/dL FiO2 % Sodium 145 (137-145) mmol/L Potassium 3.3 L (3.5-5.1) mmol/L Chloride 111 H (98-107) mmol/L Carbon Dioxide 17 L (22-30) mmol/L Anion Gap 17 mmol/L BUN 25 H (9-20) mg/dL Creatinine 1.25 (0.66-1.25) mg/dL Est GFR (CKD-EPI)AfAm 72 (>60 ml/min/1.73 sqM) Est GFR (CKD-EPI)NonAf 62 (>60 ml/min/1.73 sqM) Glucose 126 H (74-99) mg/dL POC Glucose (mg/dL) (70-110) mg/dL POC Glu Fish Bait Picker ID Plasma Lactic Acid Aniceto 11.0 H* (0.7-2.0) mmol/L Calcium 9.2 (8.4-10.2) mg/dL Total Bilirubin 1.0 (0.2-1.3) mg/dL AST 113 H (17-59) U/L ALT 66 H (4-49) U/L Alkaline Phosphatase 81 (38-126) U/L Ammonia 85 H (<30) umol/L Creatine Kinase 620 H (55-170) U/L Troponin I 0.020 (0.000-0.034) ng/mL Total Protein 7.0 (6.3-8.2) g/dL Albumin 4.6 (3.5-5.0) g/dL Lipase 86 (23-300) U/L Urine Color Urine Appearance (Clear) Urine pH (5.0-8.0) Ur Specific [place] (1.001-1.035) Urine Protein (Negative) Urine Glucose (UA) (Negative) Urine Ketones (Negative) Urine Blood (Negative) Urine Nitrite (Negative) Urine Bilirubin (Negative) Urine Urobilinogen (<2.0) mg/dL Ur Leukocyte Esterase (Negative) Urine RBC (0-5) /hpf Urine WBC (0-5) /hpf Ur Squamous Epith Cells (0-4) /hpf Urine Bacteria (None) /hpf Urine Mucus (None) /hpf Urine Opiates Screen (NotDetected) Ur Oxycodone Screen (NotDetected) Urine Methadone Screen (NotDetected) Acetaminophen <10.0 ug/mL Ur Barbiturates Screen (NotDetected) U Tricyclic Antidepress (NotDetected) Ur Phencyclidine Scrn (NotDetected) Ur Amphetamines Screen (NotDetected) U Methamphetamines Scrn (NotDetected) U Benzodiazepines Scrn (NotDetected) Urine Cocaine Screen (NotDetected) U Marijuana (THC) Screen (NotDetected) Serum Alcohol <10 mg/dL 04/06/24 04/06/24 04/06/24 Range/Units 17:57 17:57 18:02 WBC (3.8-10.6) k/uL RBC (4.30-5.90) m/uL Hgb (13.0-17.5) gm/dL Hct (39.0-53.0) % MCV (80.0-100.0) fL MCH (25.0-35.0) pg MCHC (31.0-37.0) g/dL RDW (11.5-15.5) % Plt Count (150-450) k/uL MPV Neutrophils % % Lymphocytes % % Monocytes % % Eosinophils % % Basophils % % Neutrophils # (1.3-7.7) k/uL Lymphocytes # (1.0-4.8) k/uL Monocytes # (0-1.0) k/uL Eosinophils # (0-0.7) k/uL Basophils # (0-0.2) k/uL Hypochromasia PT (10.0-12.5) sec INR (<1.2) APTT (22.0-30.0) sec Sample Site lrad ABG pH 6.97 L* (7.35-7.45) ABG pCO2 75 H* (35-45) mmHg ABG pO2 179 H (83-108) mmHg ABG HCO3 17 L (21-25) mmol/L ABG Total CO2 20 (19-24) mmol/L ABG O2 Saturation 98.3 H (94-97) % ABG Base Excess -15.9 mmol/L Jung Test Yes Hemoglobin 14.7 (13.0-17.5) gm/dL FiO2 100 % Sodium (137-145) mmol/L Potassium (3.5-5.1) mmol/L Chloride (98-107) mmol/L Carbon Dioxide (22-30) mmol/L Anion Gap mmol/L BUN (9-20) mg/dL Creatinine (0.66-1.25) mg/dL Est GFR (CKD-EPI)AfAm (>60 ml/min/1.73 sqM) Est GFR (CKD-EPI)NonAf (>60 ml/min/1.73 sqM) Glucose (74-99) mg/dL POC Glucose (mg/dL) (70-110) mg/dL POC Glu Fish Bait Picker ID Plasma Lactic Acid Aniceto (0.7-2.0) mmol/L Calcium (8.4-10.2) mg/dL Total Bilirubin (0.2-1.3) mg/dL AST (17-59) U/L ALT (4-49) U/L Alkaline Phosphatase (38-126) U/L Ammonia (<30) umol/L Creatine Kinase (55-170) U/L Troponin I (0.000-0.034) ng/mL Total Protein (6.3-8.2) g/dL Albumin (3.5-5.0) g/dL Lipase (23-300) U/L Urine Color Light Yellow Urine Appearance Cloudy (Clear) Urine pH 5.5 (5.0-8.0) Ur Specific [place] 1.015 (1.001-1.035) Urine Protein 2+ H (Negative) Urine Glucose (UA) Negative (Negative) Urine Ketones 1+ H (Negative) Urine Blood Large H (Negative) Urine Nitrite Negative (Negative) Urine Bilirubin Negative (Negative) Urine Urobilinogen <2.0 (<2.0) mg/dL Ur Leukocyte Esterase Negative (Negative) Urine RBC 10 H (0-5) /hpf Urine WBC 16 H (0-5) /hpf Ur Squamous Epith Cells 1 (0-4) /hpf Urine Bacteria Occasional H (None) /hpf Urine Mucus Few H (None) /hpf Urine Opiates Screen Detected H (NotDetected) Ur Oxycodone Screen Not Detected (NotDetected) Urine Methadone Screen Not Detected (NotDetected) Acetaminophen ug/mL Ur Barbiturates Screen Not Detected (NotDetected) U Tricyclic Antidepress Not Detected (NotDetected) Ur Phencyclidine Scrn Not Detected (NotDetected) Ur Amphetamines Screen Detected H (NotDetected) U Methamphetamines Scrn Not Detected (NotDetected) U Benzodiazepines Scrn Not Detected (NotDetected) Urine Cocaine Screen Not Detected (NotDetected) U Marijuana (THC) Screen Not Detected (NotDetected) Serum Alcohol mg/dL Disposition Clinical Impression: Cardiac arrest, Subdural hemorrhage, Rib fractures Disposition: ADMITTED IP TO THIS HOSP Condition: Critical Is patient prescribed a controlled substance at d/c from ED?: No Referrals: Daniela Rojo MD [Primary Care Provider] - 1-2 days Time of Disposition: 20:24 Decision to Admit Reason: Admit from EC Decision Date: 04/06/24 Decision Time: 20:24
[2024-04-06] MEDS: MIDAZOLAM HCL 50 MG in SODIUM CHLORIDE 0.9% 40 ML IV SCH (20:37)
[2024-04-06] MEDS: MORPHINE SULFATE 4 MG/ML SYRINGE IVP STA ×2 (20:47→22:28)
[2024-04-06 20:55] LABS: Glucose,Whole Blood 205 mg/dL (70-110)
[2024-04-06] MEDS: METOPROLOL TARTRATE 5 MG/5 ML VIAL IVP STA (22:30)
[2024-04-06] MEDS: CLEVIDIPINE BUTYRATE 25 MG in EMPTY BAG 1 BAG IV SCH (23:05)
[2024-04-06] MEDS ORDERED: NOREPINEPHRINE 4 MG in SODIUM CHLORIDE 0.9% 250 ML IV SCH (23:45)
[2024-04-06] MEDS: NOREPINEPHRINE 4 MG in SODIUM CHLORIDE 0.9% 250 ML IV SCH ×2 (23:50→23:55)
[2024-04-07 05:32] LABS: ABG Base Excess -3.2 mmol/L; ABG HCO3 23 mmol/L (21-25); ABG Oxygen Saturation 98.8 % (94-97); ABG PCO2 44 mmHg (35-45); ABG PH 7.33 (7.35-7.45); ABG PO2 115 mmHg (83-108); ABG TCO2 24 mmol/L (19-24); Allen Test Performed? Yes
[2024-04-07 06:19] LABS: HCT 43.3 % (39.0-53.0); HGB 14.1 gm/dL (13.0-17.5); Hypochromasia Slight; MCH 29.6 pg (25.0-35.0); MCHC 32.4 g/dL (31.0-37.0); MCV 91.1 fL (80.0-100.0); Mean Platelet Volume 7.7; Platelet Count 195 k/uL (150-450); RBC 4.75 m/uL (4.30-5.90); RDW 14.4 % (11.5-15.5); WBC 16.6 k/uL (3.8-10.6)
[2024-04-07] MEDS ORDERED: NALOXONE 0.4 MG/ML 1 ML VIAL IV PRN (06:23)
[2024-04-07 06:34] LABS: African American GFR (CKD) 90 (>60 ml/min/1.73 sqM); Anion Gap 6 mmol/L; Blood Urea Nitrogen 28 mg/dL (9-20); Carbon Dioxide 24 mmol/L (22-30); Chloride 123 mmol/L (98-107); Glucose 101 mg/dL (74-99); Non-African American GFR(CKD) 78 (>60 ml/min/1.73 sqM); Sodium 153 mmol/L (137-145)
--- NOTE | 2024-04-07 09:11 | XR ---
EXAMINATION TYPE: XR chest 1V portable DATE OF EXAM: 04/07/2024 5:21 AM COMPARISON: Chest radiograph from one day prior. CLINICAL INDICATION: Male, 63 years old with history of intubated; TECHNIQUE: XR chest 1V portable Frontal view of the chest. FINDINGS: Lungs/Pleura: There is no evidence of pleural effusion, focal consolidation, or pneumothorax. Pulmonary vascularity: Pulmonary vascular congestion. Heart/mediastinum: Cardiomediastinal silhouette is enlarged. Musculoskeletal: No acute osseous pathology. Other findings: None Lines/Tubes: Endotracheal tube with distal tip 7.1 cm above the [place]. Nasogastric tube with side-port projecting over the distal esophagus. IMPRESSION: 1. Nasogastric tube side-port in the distal esophagus consider advancement of 12 cm for optimal plac ement. 2. Endotracheal tube in high position 3. Cardiomegaly. 4. Pulmonary edema. [facility], , 04/07/2024 9:08 AM
--- NOTE | 2024-04-07 11:50 | P.CNPUL ---
History of Present Illness Consult date: 04/07/24 Requesting physician: Daniela Rojo Reason for consult: other (ICU management) Chief complaint: Cardiac arrest History of present illness: This is a 63-year-old white male with history of multiple medical problems including COPD, HIV, coronary artery disease, patient presented to the ER with cardiac arrest. His neighbor saw the patient around noontime, and he was not acting normal. Around 5 PM, the neighbor went into the house to check on the patient, and the patient was found unresponsive down on the floor. CPR was initiated and EMS was brought in. Patient did receive Narcan, received CPR for asystole, patient had 2 rounds of CPR and gave 2 epinephrines. Patient went into PEA and then to normal sinus rhythm. Patient was brought into the ER intubated, and apparently he had a prolonged downtime. CT of the brain showed a large left acute subdural hemorrhage with subfalcine herniation, and suspected earlier tonsillar herniation. Apparently the ER physician discussed his conditi on with family who recommended DNR CODE STATUS and willing to proceed with comfort care measures once more family members could make it back to town. Apparently has a sister that is traveling from out of state to arrive sometime later today. Patient was made DNR brought into the ICU, at 1 point the patient developed hypertension placed on Cleviprex, but later on developed hypotension required short brief course of norepinephrine but presently he is off pressors and off blood pressure medications. To be hemodynamically stable during my evaluation in the ICU. Patient is now on assist-control rate of 20 tidal volume 450 FiO2 60% PEEP of 5 ABG showed a pO2 of 115 pCO2 44 pH of 7.33 hence his rate was increased to 24, his FiO2 cut down to 50%, and kept otherwise on the same ventilator settings. WBC count this morning is 16.6 hemoglobin 14.1 sodium is high at 153 hence his IV fluid to be changed to D5W and his BUN is 28 creatinine 1.04 patient is being evaluated by [facility] for possible organ donation. Review of Systems ROS unobtainable: due to endotracheal tube, due to mental status Past Medical History Past Medical History: COPD, GERD/Reflux, Hypertension, Osteoarthritis (OA), Sleep Apnea/CPAP/BIPAP Additional Past Medical History / Comment(s): HIV/AIDS(1990) back pain, neuropathy,sleep apnea, ARTHRITIS History of Any Multi-Drug Resistant Organisms: None Reported Past Surgical History: Heart Catheterization With Stent Additional Past Surgical History / Comment(s): neck surgery, throat surgery, Past Anesthesia/Blood Transfusion Reactions: No Reported Reaction Date of Last Stent Placement:: 10/2021 Past Psychological History: Bipolar, Depression, Panic Disorder Additional Psychological History / Comment(s): Pt resides alone in an apartment. He uses a walker to ambulate. He is disabled. He drives. Smoking Status: Current every day smoker Past Alcohol Use History: Occasional Additional Past Alcohol Use History / Comment(s): Pt started smoking in 1976 and is about a ppd smoker. He occasionally drinks alcohol-[employer]. Past Drug Use History: Marijuana Additional Drug Use History / Comment(s): USES EDIBLES-FOR PAIN RELIEF - Past Family History Brother(s) Family Medical History: Diabetes Mellitus Father Family Medical History: Cancer Additional Family Medical History / Comment(s): Father of throat cancer. Mother Additional Family Medical History / Comment(s): Mother of a ruptured brain aneurysm. Medications and Allergies Home Medications Medication Instructions Recorded Confirmed Type Emtricitabine/Tenofov Alafenam 1 tab PO DAILY 09/01/18 04/07/24 History [Descovy 200-25 mg Tablet] Levothyroxine Sodium [Synthroid] 25 mcg PO DAILY 09/01/18 04/07/24 History Citalopram Hydrobromide [CeleXA] 40 mg PO DAILY 03/31/19 04/07/24 History Baclofen [Lioresal] 20 mg PO QID 11/22/20 04/07/24 History Cetirizine HCl [Zyrtec] 10 mg PO DAILY 11/22/20 04/07/24 History Gabapentin 800 mg PO TID 11/22/20 04/07/24 History Morphine Sulfate Ir [MSIR] 15 mg PO DAILY 05/10/21 04/07/24 History Dolutegravir Sodium [Tivicay] 50 mg PO DAILY 08/14/21 04/07/24 History Ipratropium [place] 0.06%Nasal 2 spray EA NOSTRIL BID PRN 08/14/21 04/07/24 History [Atrovent Nasal 0.06%] Docusate Sodium [Dok] 100 mg PO HS PRN 10/23/21 04/07/24 History Phentermine HCl [Adipex-P] 37.5 mg PO DAILY 10/23/21 04/07/24 History Clopidogrel [Plavix] 75 mg PO DAILY tab 11/04/21 04/07/24 Rx Nitroglycerin Sl Tabs [Nitrostat] 0.4 mg SUBLINGUAL Q5M PRN tab 11/04/21 04/07/24 Rx Etravirine 200 mg PO BID 01/02/22 04/07/24 History Rivaroxaban [Xarelto] 20 mg PO DAILY 01/02/22 04/07/24 History Albuterol Inhaler [Ventolin Hfa 2 puff INHALATION RT-Q4H PRN 04/07/24 04/07/24 History Inhaler] Atorvastatin [Lipitor] 40 mg PO DAILY 04/07/24 04/07/24 History Clindamycin Phosphate 1% Swab 1 applic TOPICAL BID PRN 04/07/24 04/07/24 History Furosemide [Lasix] 40 mg PO BID 04/07/24 04/07/24 History L.acidoph,Paracasei, B.lactis 1 cap PO DAILY 04/07/24 04/07/24 History [Probiotic] Metoprolol Tartrate [Lopressor] 25 mg PO BID 04/07/24 04/07/24 History Morphine Sulfate ER [Ms Contin] 15 mg PO BID 04/07/24 04/07/24 History Multivitamins, Thera [Multivitamin 1 tab PO DAILY 04/07/24 04/07/24 History (formulary)] Mupirocin 2% Oint [Bactroban 2% 1 applic TOPICAL TID 04/07/24 04/07/24 History Oint] Prostate Therapy Supplement 1 tab PO DAILY 04/07/24 04/07/24 History Tolterodine ER [Detrol LA] 4 mg PO DAILY 04/07/24 04/07/24 History polyethylene glycoL 3350 [Miralax] 17 gm PO DAILY 04/07/24 04/07/24 History traZODone HCL [Desyrel] 100 mg PO HS 04/07/24 04/07/24 History Allergies Allergy/AdvReac Type Severity Reaction Status Date / Time azithromycin Allergy Rash/Hives Verified 04/07/24 11:07 [From Zithromax Z-Simone] levofloxacin [From Levaquin] Allergy Verified 04/07/24 11:07 Sulfa (Sulfonamide Allergy Rash/Hives Verified 04/07/24 11:07 Antibiotics) Physical Exam Vitals: Vital Signs Temp Pulse Pulse Resp BP BP Pulse Ox 04/07/24 11:15 99 10 L 101/78 90 L 04/07/24 11:00 99 14 107/80 94 L 04/07/24 10:45 99 14 97/81 94 L 04/07/24 10:30 97 16 103/78 94 L 04/07/24 10:15 98 24 100/82 94 L 04/07/24 10:00 99 11 L 108/81 94 L 04/07/24 09:45 100 12 103/83 95 04/07/24 09:30 99 24 104/77 95 04/07/24 09:15 99 7 L 109/81 93 L 04/07/24 09:00 98 12 103/78 95 04/07/24 08:45 97 24 99/72 94 L 04/07/24 08:30 96 24 95/72 95 04/07/24 08:27 04/07/24 08:15 96 24 96/74 96 04/07/24 08:00 99.4 F 98 20 101/75 04/07/24 07:45 97 20 100/77 96 04/07/24 07:30 98 20 104/76 96 04/07/24 07:15 96 20 110/80 97 04/07/24 07:00 94 20 109/83 97 04/07/24 06:45 92 20 108/79 97 04/07/24 06:30 91 20 101/76 97 04/07/24 06:15 88 20 105/81 98 04/07/24 06:00 87 14 110/78 99 04/07/24 05:45 87 11 L 103/74 99 04/07/24 05:30 89 3 L 114/88 99 04/07/24 05:15 87 0 L 108/80 100 04/07/24 05:00 87 20 107/79 98 04/07/24 04:45 88 20 108/80 99 04/07/24 04:30 88 20 107/78 99 04/07/24 04:15 88 20 100/72 100 04/07/24 04:01 04/07/24 04:00 100.3 F H 88 20 98/73 99 04/07/24 03:45 87 20 97/70 99 04/07/24 03:30 86 20 93/65 98 04/07/24 03:15 87 20 124/87 100 04/07/24 03:00 87 20 115/76 99 04/07/24 02:45 86 20 120/85 100 04/07/24 02:30 87 20 119/87 100 04/07/24 02:15 85 20 93/67 98 04/07/24 02:00 86 20 115/83 100 04/07/24 01:45 86 20 117/85 100 04/07/24 01:30 86 20 116/86 100 04/07/24 01:15 85 20 119/87 100 04/07/24 01:00 85 20 115/88 100 04/07/24 00:52 04/07/24 00:45 84 20 94/69 04/07/24 00:30 82 20 98/74 04/07/24 00:15 88 20 128/96 04/07/24 00:00 100.2 F H 86 20 96/76 04/06/24 23:45 86 20 50/33 04/06/24 23:30 94 20 114/82 94 L 04/06/24 23:29 96 20 114/82 93 L 04/06/24 23:01 97.7 F 102 H 20 149/102 04/06/24 23:00 101 H 20 137/104 95 04/06/24 22:30 129 H 20 152/106 94 L 04/06/24 22:00 131 H 20 137/98 93 L 04/06/24 21:30 133 H 20 153/99 93 L 04/06/24 21:10 129 H 20 159/111 91 L 04/06/24 21:00 97.2 F L 23 176/128 04/06/24 20:20 115 H 20 174/118 94 L 04/06/24 19:57 04/06/24 19:45 105 H 18 151/101 94 L 04/06/24 19:27 99 20 120/82 94 L 04/06/24 18:57 94.3 F L 98 20 123/83 94 L 04/06/24 18:44 98 20 157/86 100 04/06/24 18:24 94.5 F L 105 H 20 137/68 100 04/06/24 18:12 112 H 20 163/80 97 04/06/24 18:09 04/06/24 17:57 95.2 F L 118 H 14 155/80 99 04/06/24 17:52 04/06/24 17:40 04/06/24 17:38 110 H 18 158/70 100 FiO2 04/07/24 11:15 50 04/07/24 11:00 04/07/24 10:45 04/07/24 10:30 04/07/24 10:15 04/07/24 10:00 04/07/24 09:45 04/07/24 09:30 04/07/24 09:15 04/07/24 09:00 04/07/24 08:45 04/07/24 08:30 04/07/24 08:27 50 04/07/24 08:15 04/07/24 08:00 50 04/07/24 07:45 04/07/24 07:30 04/07/24 07:15 04/07/24 07:00 04/07/24 06:45 04/07/24 06:30 04/07/24 06:15 04/07/24 06:00 04/07/24 05:45 04/07/24 05:30 04/07/24 05:15 04/07/24 05:00 04/07/24 04:45 04/07/24 04:30 04/07/24 04:15 04/07/24 04:01 60 04/07/24 04:00 60 04/07/24 03:45 04/07/24 03:30 04/07/24 03:15 04/07/24 03:00 04/07/24 02:45 04/07/24 02:30 04/07/24 02:15 04/07/24 02:00 04/07/24 01:45 04/07/24 01:30 04/07/24 01:15 04/07/24 01:00 04/07/24 00:52 60 04/07/24 00:45 04/07/24 00:30 04/07/24 00:15 04/07/24 00:00 60 04/06/24 23:45 04/06/24 23:30 04/06/24 23:29 04/06/24 23:01 60 04/06/24 23:00 04/06/24 22:30 04/06/24 22:00 04/06/24 21:30 04/06/24 21:10 04/06/24 21:00 60 04/06/24 20:20 04/06/24 19:57 60 04/06/24 19:45 04/06/24 19:27 04/06/24 18:57 04/06/24 18:44 04/06/24 18:24 04/06/24 18:12 04/06/24 18:09 60 04/06/24 17:57 04/06/24 17:52 100 04/06/24 17:40 100 04/06/24 17:38 Intake and Output 04/06/24 04/07/24 04/07/24 22:59 06:59 14:59 Intake Total 14.735 1366.803 40 Output Total 177 1910 1240 Balance -1760.265 -543.197 -1200 Intake: IV 1000 40 0.9 40 Sodium Chloride 0.9% 1, 1000 000 ml @ 999 mls/hr IV . Q1H1M ONE Rx#:[id number] Intake, IV Titration 14.735 366.803 Amount Clevidipine Butyrate 25 1.5 mg In Empty Bag 1 bag @ 1 MG/HR 2 mls/hr IV .Q24H MICHELLE Rx#:[id number] Midazolam HCl 50 mg In 2.716 22.333 Sodium Chloride 0.9% 40 ml @ 1 MG/HR 1 mls/hr IV .Q24H MICHELLE Rx#:[id number] Norepinephrine 4 mg In 2.592 Sodium Chloride 0.9% 250 ml @ 0.03 MCG/KG/MIN 10. 369 mls/hr IV .Q24H MICHELLE Rx#:[id number] Norepinephrine 4 mg In 185.494 Sodium Chloride 0.9% 250 ml @ 0.03 MCG/KG/MIN 10. 369 mls/hr IV .Q24H MICHELLE Rx#:[id number] propofoL 1,000 mg In 12.019 154.884 Empty Bag 1 bag @ 15 MCG/ KG/MIN 8.165 mls/hr IV . [id number] MICHELLE Rx#:[id number] Output: Urine 177 1910 1240 Coude 700 Other: Voiding Method Indwelling Catheter Indwelling Catheter Indwelling Catheter Weight 90.718 kg 92.6 kg General: Revealed 63-year-old white male intubated mechanically ventilated, unresponsive to any stimuli. Skin: Skin is warm and dry and no rashes or lesions are noted. Eye: Dilated and unreactive Ears, nose, mouth and throat: There are moist mucous membranes and no oral lesions. Endotracheal tube and orogastric tube are intact Neck: The neck is supple, there is no tenderness or JVD. Cardiovascular: There is a regular rate and rhythm. No murmur, rub or gallop is appreciated. Respiratory: Clear bilaterally no crackles rhonchi or wheezes Gastrointestinal: Soft nontender no rebound no guarding Musculoskeletal: No deformities, could not assess range of motion Neurological: Pupils are dilated and unreactive, patient is comatose Psychiatric: Could not assess Results - Laboratory Findings CBC and BMP: 04/07/24 05:53 04/07/24 05:53 ABG ABG pH 7.33 (7.35-7.45) L 04/07/24 05:31 ABG pCO2 44 mmHg (35-45) 04/07/24 05:31 ABG pO2 115 mmHg (83-108) H 04/07/24 05:31 ABG O2 Saturation 98.8 % (94-97) H 04/07/24 05:31 PT/INR, D-dimer PT 12.0 sec (10.0-12.5) 04/06/24 17:49 INR 1.1 (<1.2) 04/06/24 17:49 Abnormal lab findings: Abnormal Labs 04/06/24 04/06/24 04/06/24 17:41 17:49 17:49 WBC 20.3 H Neutrophils # 14.1 H Monocytes # 1.5 H ABG pH ABG pCO2 ABG pO2 ABG HCO3 ABG O2 Saturation Sodium Potassium 3.3 L Chloride 111 H Carbon Dioxide 17 L BUN 25 H Glucose 126 H POC Glucose (mg/dL) 128 H Plasma Lactic Acid Aniceto AST 113 H ALT 66 H Ammonia Creatine Kinase 620 H Urine Protein Urine Ketones Urine Blood Urine RBC Urine WBC Urine Bacteria Urine Mucus Urine Opiates Screen Ur Amphetamines Screen 04/06/24 04/06/24 04/06/24 17:49 17:57 17:57 WBC Neutrophils # Monocytes # ABG pH ABG pCO2 ABG pO2 ABG HCO3 ABG O2 Saturation Sodium Potassium Chloride Carbon Dioxide BUN Glucose POC Glucose (mg/dL) Plasma Lactic Acid Aniceto 11.0 H* AST ALT Ammonia 85 H Creatine Kinase Urine Protein 2+ H Urine Ketones 1+ H Urine Blood Large H Urine RBC 10 H Urine WBC 16 H Urine Bacteria Occasional H Urine Mucus Few H Urine Opiates Screen Detected H Ur Amphetamines Screen Detected H 04/06/24 04/06/24 04/07/24 18:02 20:54 05:31 WBC Neutrophils # Monocytes # ABG pH 6.97 L* 7.33 L ABG pCO2 75 H* ABG pO2 179 H 115 H ABG HCO3 17 L ABG O2 Saturation 98.3 H 98.8 H Sodium Potassium Chloride Carbon Dioxide BUN Glucose POC Glucose (mg/dL) 205 H Plasma Lactic Acid Aniceto AST ALT Ammonia Creatine Kinase Urine Protein Urine Ketones Urine Blood Urine RBC Urine WBC Urine Bacteria Urine Mucus Urine Opiates Screen Ur Amphetamines Screen 04/07/24 04/07/24 05:53 05:53 WBC 16.6 H Neutrophils # Monocytes # ABG pH ABG pCO2 ABG pO2 ABG HCO3 ABG O2 Saturation Sodium 153 H Potassium Chloride 123 H Carbon Dioxide BUN 28 H Glucose 101 H POC Glucose (mg/dL) Plasma Lactic Acid Aniceto AST ALT Ammonia Creatine Kinase Urine Protein Urine Ketones Urine Blood Urine RBC Urine WBC Urine Bacteria Urine Mucus Urine Opiates Screen Ur Amphetamines Screen - Diagnostic Findings Chest x-ray: image reviewed (Chest x-ray is relatively unremarkable no evidence of pulmonary edema and no evidence of infiltrate) Additional studies: CT brain showed acute subdural hematoma as noted in HPI Assessment and Plan Assessment: Impression: Acute hypoxic respiratory failure secondary to cardiac arrest Acute subdural hematoma/mass with herniation History of coronary artery disease with total occlusion of RCA History of underlying COPD History of benign essential hypertension History of HIV/AIDS syndrome Recommendation: Continue ventilatory support [facility] is evaluating the patient with family's permission Hemodynamic support if felt necessary Will proceed to comfort care measures once family is ready. Prognosis is extremely poor and guarded Will continue to follow Time with Patient: Greater than 30
--- NOTE | 2024-04-07 17:09 | P.HPIM ---
History of Present Illness H&P Date: 04/07/24 Jack Luna, is a 63-year-old male who was found unresponsive on the floor of his house by his neighbor, CPR was initiated and EMS were called patient was brought into emergency room. He was evaluated in the emergency room vital examination on presentation revealed a temperature of 95.2 pulse 110 respiration 18 blood pressure 158/70 pulse ox 100% on mechanical ventilation Laboratory data revealed a white blood count of 20.3 hemoglobin 15.4 platelet count 208 ABG revealed a pH of 6.97 pCO2 75 pO2 179 sodium 145 potassium 3.3 chloride 111 CO2 17 BUN 25 creatinine 1.23 AST 113 ALT 66 ammonia level 85 creatinine kinase 620 serum alcohol level less than 10 Testing in the emergency room revealed CT scan of the brain revealed left acute subdural hemorrhage with subfalcine herniation and suspected early tonsillar herniation. Family was contacted regarding patient condition in the emergency room, and need to transfer to a tertiary care center, however they opted for admission to our hospital with plan to proceed with comfort care only and hospice care. Patient was admitted to ICU, on mechanical ventilation, awaiting arrival of multiple family members Past medical history is significant for underlying history of hypertension, history of COPD, history of obstructive sleep apnea maintained on BiPAP, history of gastroesophageal reflux disease, history of osteoarthritis, and history of HIV AIDS syndrome. Past Medical History Past Medical History: COPD, GERD/Reflux, Hypertension, Osteoarthritis (OA), Sleep Apnea/CPAP/BIPAP Additional Past Medical History / Comment(s): HIV/AIDS(1990) back pain, neuropathy,sleep apnea, ARTHRITIS History of Any Multi-Drug Resistant Organisms: None Reported Past Surgical History: Heart Catheterization With Stent Additional Past Surgical History / Comment(s): neck surgery, throat surgery, Past Anesthesia/Blood Transfusion Reactions: No Reported Reaction Date of Last Stent Placement:: 10/2021 Past Psychological History: Bipolar, Depression, Panic Disorder Additional Psychological History / Comment(s): Pt resides alone in an apartment. He uses a walker to ambulate. He is disabled. He drives. Smoking Status: Current every day smoker Past Alcohol Use History: Occasional Additional Past Alcohol Use History / Comment(s): Pt started smoking in 1976 and is about a ppd smoker. He occasionally drinks alcohol-black carver radha. Past Drug Use History: Marijuana Additional Drug Use History / Comment(s): USES EDIBLES-FOR PAIN RELIEF - Past Family History Brother(s) Family Medical History: Diabetes Mellitus Father Family Medical History: Cancer Additional Family Medical History / Comment(s): Father of throat cancer. Mother Additional Family Medical History / Comment(s): Mother of a ruptured brain aneurysm. Medications and Allergies Home Medications Medication Instructions Recorded Confirmed Type Emtricitabine/Tenofov Alafenam 1 tab PO DAILY 09/01/18 04/07/24 History [Descovy 200-25 mg Tablet] Levothyroxine Sodium [Synthroid] 25 mcg PO DAILY 09/01/18 04/07/24 History Citalopram Hydrobromide [CeleXA] 40 mg PO DAILY 03/31/19 04/07/24 History Baclofen [Lioresal] 20 mg PO QID 11/22/20 04/07/24 History Cetirizine HCl [Zyrtec] 10 mg PO DAILY 11/22/20 04/07/24 History Gabapentin 800 mg PO TID 11/22/20 04/07/24 History Morphine Sulfate Ir [MSIR] 15 mg PO DAILY 05/10/21 04/07/24 History Dolutegravir Sodium [Tivicay] 50 mg PO DAILY 08/14/21 04/07/24 History Ipratropium Fraser 0.06%Nasal 2 spray EA NOSTRIL BID PRN 08/14/21 04/07/24 History [Atrovent Nasal 0.06%] Docusate Sodium [Dok] 100 mg PO HS PRN 10/23/21 04/07/24 History Phentermine HCl [Adipex-P] 37.5 mg PO DAILY 10/23/21 04/07/24 History Clopidogrel [Plavix] 75 mg PO DAILY tab 11/04/21 04/07/24 Rx Nitroglycerin Sl Tabs [Nitrostat] 0.4 mg SUBLINGUAL Q5M PRN tab 11/04/21 Rx Etravirine 200 mg PO BID 01/02/22 04/07/24 History Rivaroxaban [Xarelto] 20 mg PO DAILY 01/02/22 04/07/24 History Albuterol Inhaler [Ventolin Hfa 2 puff INHALATION RT-Q4H PRN 04/07/24 04/07/24 History Inhaler] Atorvastatin [Lipitor] 40 mg PO DAILY 04/07/24 04/07/24 History Clindamycin Phosphate 1% Swab 1 applic TOPICAL BID PRN 04/07/24 04/07/24 History Furosemide [Lasix] 40 mg PO BID 04/07/24 04/07/24 History L.acidoph,Paracasei, B.lactis 1 cap PO DAILY 04/07/24 04/07/24 History [Probiotic] Metoprolol Tartrate [Lopressor] 25 mg PO BID 04/07/24 04/07/24 History Morphine Sulfate ER [Ms Contin] 15 mg PO BID 04/07/24 04/07/24 History Multivitamins, Thera [Multivitamin 1 tab PO DAILY 04/07/24 04/07/24 History (formulary)] Mupirocin 2% Oint [Bactroban 2% 1 applic TOPICAL TID 04/07/24 04/07/24 History Oint] Prostate Therapy Supplement 1 tab PO DAILY 04/07/24 04/07/24 History Tolterodine ER [Detrol LA] 4 mg PO DAILY 04/07/24 04/07/24 History polyethylene glycoL 3350 [Miralax] 17 gm PO DAILY 04/07/24 04/07/24 History traZODone HCL [Desyrel] 100 mg PO HS 04/07/24 04/07/24 History Allergies Allergy/AdvReac Type Severity Reaction Status Date / Time azithromycin Allergy Rash/Hives Verified 04/07/24 11:07 [From Zithromax Z-Simone] levofloxacin [From Levaquin] Allergy Verified 04/07/24 11:07 Sulfa (Sulfonamide Allergy Rash/Hives Verified 04/07/24 11:07 Antibiotics) Physical Exam Vitals: Vital Signs Temp Pulse Pulse Resp BP BP Pulse Ox 04/07/24 08:27 04/07/24 07:00 94 20 109/83 97 04/07/24 06:45 92 20 108/79 97 04/07/24 06:30 91 20 101/76 97 04/07/24 06:15 88 20 105/81 98 04/07/24 06:00 87 14 110/78 99 04/07/24 05:45 87 11 L 103/74 99 04/07/24 05:30 89 3 L 114/88 99 04/07/24 05:15 87 0 L 108/80 100 04/07/24 05:00 87 20 107/79 98 04/07/24 04:45 88 20 108/80 99 04/07/24 04:30 88 20 107/78 99 04/07/24 04:15 88 20 100/72 100 04/07/24 04:01 04/07/24 04:00 100.3 F H 88 20 98/73 99 04/07/24 03:45 87 20 97/70 99 04/07/24 03:30 86 20 93/65 98 04/07/24 03:15 87 20 124/87 100 04/07/24 03:00 87 20 115/76 99 04/07/24 02:45 86 20 120/85 100 04/07/24 02:30 87 20 119/87 100 04/07/24 02:15 85 20 93/67 98 04/07/24 02:00 86 20 115/83 100 04/07/24 01:45 86 20 117/85 100 04/07/24 01:30 86 20 116/86 100 04/07/24 01:15 85 20 119/87 100 04/07/24 01:00 85 20 115/88 100 04/07/24 00:52 04/07/24 00:45 84 20 94/69 04/07/24 00:30 82 20 98/74 04/07/24 00:15 88 20 128/96 04/07/24 00:00 100.2 F H 86 20 96/76 04/06/24 23:45 86 20 50/33 04/06/24 23:30 94 20 114/82 94 L 04/06/24 23:29 96 20 114/82 93 L 04/06/24 23:01 97.7 F 102 H 20 149/102 04/06/24 23:00 101 H 20 137/104 95 04/06/24 22:30 129 H 20 152/106 94 L 04/06/24 22:00 131 H 20 137/98 93 L 04/06/24 21:30 133 H 20 153/99 93 L 04/06/24 21:10 129 H 20 159/111 91 L 04/06/24 21:00 97.2 F L 23 176/128 04/06/24 20:20 115 H 20 174/118 94 L 04/06/24 19:57 04/06/24 19:45 105 H 18 151/101 94 L 04/06/24 19:27 99 20 120/82 94 L 04/06/24 18:57 94.3 F L 98 20 123/83 94 L 04/06/24 18:44 98 20 157/86 100 04/06/24 18:24 94.5 F L 105 H 20 137/68 100 04/06/24 18:12 112 H 20 163/80 97 04/06/24 18:09 04/06/24 17:57 95.2 F L 118 H 14 155/80 99 04/06/24 17:52 04/06/24 17:40 04/06/24 17:38 110 H 18 158/70 100 FiO2 04/07/24 08:27 50 04/07/24 07:00 04/07/24 06:45 04/07/24 06:30 04/07/24 06:15 04/07/24 06:00 04/07/24 05:45 04/07/24 05:30 04/07/24 05:15 04/07/24 05:00 04/07/24 04:45 04/07/24 04:30 04/07/24 04:15 04/07/24 04:01 60 04/07/24 04:00 60 04/07/24 03:45 04/07/24 03:30 04/07/24 03:15 04/07/24 03:00 04/07/24 02:45 04/07/24 02:30 04/07/24 02:15 04/07/24 02:00 04/07/24 01:45 04/07/24 01:30 04/07/24 01:15 04/07/24 01:00 04/07/24 00:52 60 04/07/24 00:45 04/07/24 00:30 04/07/24 00:15 04/07/24 00:00 60 04/06/24 23:45 04/06/24 23:30 04/06/24 23:29 04/06/24 23:01 60 04/06/24 23:00 04/06/24 22:30 04/06/24 22:00 04/06/24 21:30 04/06/24 21:10 04/06/24 21:00 60 04/06/24 20:20 04/06/24 19:57 60 04/06/24 19:45 04/06/24 19:27 04/06/24 18:57 04/06/24 18:44 04/06/24 18:24 04/06/24 18:12 04/06/24 18:09 60 04/06/24 17:57 04/06/24 17:52 100 04/06/24 17:40 100 04/06/24 17:38 Intake and Output 04/06/24 04/07/24 04/07/24 22:59 06:59 14:59 Intake Total 14.735 1366.803 Output Total 1771909 340 Balance -1760.265 -543.197 -340 Intake: IV 1000 Sodium Chloride 0.9% 1, 1000 000 ml @ 999 mls/hr IV . Q1H1M [facility] Rx#:[id number] Intake, IV Titration 14.735 366.803 Amount Clevidipine Butyrate 25 1.5 mg In Empty Bag 1 bag @ 1 MG/HR 2 mls/hr IV .Q24H [facility] Rx#:[id number] Midazolam HCl 50 mg In 2.716 22.333 Sodium Chloride 0.9% 40 ml @ 1 MG/HR 1 mls/hr IV .Q24H [facility] Rx#:[id number] Norepinephrine 4 mg In 2.592 Sodium Chloride 0.9% 250 ml @ 0.03 MCG/KG/MIN 10. 369 mls/hr IV .Q24H [facility] Rx#:[id number] Norepinephrine 4 mg In 185.494 Sodium Chloride 0.9% 250 ml @ 0.03 MCG/KG/MIN 10. 369 mls/hr IV .Q24H [facility] Rx#:[id number] propofoL 1,000 mg In 12.019 154.884 Empty Bag 1 bag @ 15 MCG/ KG/MIN 8.165 mls/hr IV . [id number] [facility] Rx#:[id number] Output: Urine 17740 340 Coude 700 Other: Voiding Method Indwelling Catheter Indwelling Catheter Weight 90.718 kg 92.6 kg Patient is intubated sedated maintained on mechanical ventilation HEENT head normocephalic and atraumatic Neck is supple no JVD no goiter no lymphadenopathy no carotid bruit Chest examination is clear to auscultation no crackles no wheezing Cardiac exam reveals regular heart sounds S1 and S2 no gallops no murmurs Abdomen is soft nontender no organomegaly with normal bowel sounds Extremity exam reveals no edema no cyanosis or clubbing Neurological examination reveals no gross focal deficits Results CBC & Chem 7: 04/07/24 05:53 04/07/24 05:53 Labs: Abnormal Lab Results - Last 24 Hours (Table) 04/06/24 04/06/24 04/06/24 Range/Units 17:41 17:49 17:49 WBC 20.3 H (3.8-10.6) k/uL Neutrophils # 14.1 H (1.3-7.7) k/uL Monocytes # 1.5 H (0-1.0) k/uL ABG pH (7.35-7.45) ABG pCO2 (35-45) mmHg ABG pO2 (83-108) mmHg ABG HCO3 (21-25) mmol/L ABG O2 Saturation (94-97) % Sodium (137-145) mmol/L Potassium 3.3 L (3.5-5.1) mmol/L Chloride 111 H (98-107) mmol/L Carbon Dioxide 17 L (22-30) mmol/L BUN 25 H (9-20) mg/dL Glucose 126 H (74-99) mg/dL POC Glucose (mg/dL) 128 H (70-110) mg/dL Plasma Lactic Acid Aniceto (0.7-2.0) mmol/L AST 113 H (17-59) U/L ALT 66 H (4-49) U/L Ammonia (<30) umol/L Creatine Kinase 620 H (55-170) U/L Urine Protein (Negative) Urine Ketones (Negative) Urine Blood (Negative) Urine RBC (0-5) /hpf Urine WBC (0-5) /hpf Urine Bacteria (None) /hpf Urine Mucus (None) /hpf Urine Opiates Screen (NotDetected) Ur Amphetamines Screen (NotDetected) 04/06/24 04/06/24 04/06/24 Range/Units 17:49 17:57 17:57 WBC (3.8-10.6) k/uL Neutrophils # (1.3-7.7) k/uL Monocytes # (0-1.0) k/uL ABG pH (7.35-7.45) ABG pCO2 (35-45) mmHg ABG pO2 (83-108) mmHg ABG HCO3 (21-25) mmol/L ABG O2 Saturation (94-97) % Sodium (137-145) mmol/L Potassium (3.5-5.1) mmol/L Chloride (98-107) mmol/L Carbon Dioxide (22-30) mmol/L BUN (9-20) mg/dL Glucose (74-99) mg/dL POC Glucose (mg/dL) (70-110) mg/dL Plasma Lactic Acid Aniceto 11.0 H* (0.7-2.0) mmol/L AST (17-59) U/L ALT (4-49) U/L Ammonia 85 H (<30) umol/L Creatine Kinase (55-170) U/L Urine Protein 2+ H (Negative) Urine Ketones 1+ H (Negative) Urine Blood Large H (Negative) Urine RBC 10 H (0-5) /hpf Urine WBC 16 H (0-5) /hpf Urine Bacteria Occasional H (None) /hpf Urine Mucus Few H (None) /hpf Urine Opiates Screen Detected H (NotDetected) Ur Amphetamines Screen Detected H (NotDetected) 04/06/24 04/06/24 04/07/24 Range/Units 18:02 20:54 05:31 WBC (3.8-10.6) k/uL Neutrophils # (1.3-7.7) k/uL Monocytes # (0-1.0) k/uL ABG pH 6.97 L* 7.33 L (7.35-7.45) ABG pCO2 75 H* (35-45) mmHg ABG pO2 179 H 115 H (83-108) mmHg ABG HCO3 17 L (21-25) mmol/L ABG O2 Saturation 98.3 H 98.8 H (94-97) % Sodium (137-145) mmol/L Potassium (3.5-5.1) mmol/L Chloride (98-107) mmol/L Carbon Dioxide (22-30) mmol/L BUN (9-20) mg/dL Glucose (74-99) mg/dL POC Glucose (mg/dL) 205 H (70-110) mg/dL Plasma Lactic Acid Aniceto (0.7-2.0) mmol/L AST (17-59) U/L ALT (4-49) U/L Ammonia (<30) umol/L Creatine Kinase (55-170) U/L Urine Protein (Negative) Urine Ketones (Negative) Urine Blood (Negative) Urine RBC (0-5) /hpf Urine WBC (0-5) /hpf Urine Bacteria (None) /hpf Urine Mucus (None) /hpf Urine Opiates Screen (NotDetected) Ur Amphetamines Screen (NotDetected) 04/07/24 04/07/24 Range/Units 05:53 05:53 WBC 16.6 H (3.8-10.6) k/uL Neutrophils # (1.3-7.7) k/uL Monocytes # (0-1.0) k/uL ABG pH (7.35-7.45) ABG pCO2 (35-45) mmHg ABG pO2 (83-108) mmHg ABG HCO3 (21-25) mmol/L ABG O2 Saturation (94-97) % Sodium 153 H (137-145) mmol/L Potassium (3.5-5.1) mmol/L Chloride 123 H (98-107) mmol/L Carbon Dioxide (22-30) mmol/L BUN 28 H (9-20) mg/dL Glucose 101 H (74-99) mg/dL POC Glucose (mg/dL) (70-110) mg/dL Plasma Lactic Acid Aniceto (0.7-2.0) mmol/L AST (17-59) U/L ALT (4-49) U/L Ammonia (<30) umol/L Creatine Kinase (55-170) U/L Urine Protein (Negative) Urine Ketones (Negative) Urine Blood (Negative) Urine RBC (0-5) /hpf Urine WBC (0-5) /hpf Urine Bacteria (None) /hpf Urine Mucus (None) /hpf Urine Opiates Screen (NotDetected) Ur Amphetamines Screen (NotDetected) Assessment and Plan Plan: Acute subdural hematoma with evidence of herniation Cardiac arrest requiring prolonged resuscitation Acute hypoxic respiratory failure requiring mechanical ventilation Underlying history of HIV AIDS syndrome Underlying history of coronary artery disease Underlying history of hypertension Underlying history of COPD At this time patient is admitted to intensive care unit He was started on mechanical ventilation in the emergency room At this time we are awaiting arrival of multiple family members, they are waiting for gift of life evaluation Plan is to proceed with comfort care only and hospice care.
[2024-04-07 17:33] LABS: Basophils % (A) 0 %; Eosinophils % (A) 0 %; HCT 50.6 % (39.0-53.0); Hypochromasia Slight; Lymphocytes # (A) 1.7 k/uL (1.0-4.8); Lymphocytes % (A) 10 %; MCH 28.8 pg (25.0-35.0); MCHC 31.7 g/dL (31.0-37.0); MCV 90.8 fL (80.0-100.0); Mean Platelet Volume 7.1; Monocytes # (A) 1.2 k/uL (0-1.0); Monocytes % (A) 7 %; Neutrophils # (A) 13.8 k/uL (1.3-7.7); Neutrophils % (A) 81 %; Platelet Count 185 k/uL (150-450); RBC 5.57 m/uL (4.30-5.90); RDW 14.4 % (11.5-15.5)
[2024-04-07 17:42] LABS: ALT 84 U/L (4-49); AST 122 U/L (17-59); African American GFR (CKD) 74 (>60 ml/min/1.73 sqM); Albumin 4.1 g/dL (3.5-5.0); Alkaline Phosphatase 80 U/L (38-126); Amylase 60 U/L (30-110); Anion Gap 6 mmol/L; Bilirubin, Delta 0.4 mg/dL (0.0-0.2); Bilirubin,Unconjugated 0.9 mg/dL (0.0-1.1); Blood Urea Nitrogen 24 mg/dL (9-20); Calcium 9.7 mg/dL (8.4-10.2); Carbon Dioxide 23 mmol/L (22-30); Glucose 94 mg/dL (74-99); Lipase 169 U/L (23-300); Magnesium 2.6 mg/dL (1.6-2.3); Non-African American GFR(CKD) 64 (>60 ml/min/1.73 sqM); Phosphorus 2.2 mg/dL (2.5-4.5); Potassium 3.5 mmol/L (3.5-5.1); Total Bilirubin 1.3 mg/dL (0.2-1.3); Total Protein 6.7 g/dL (6.3-8.2)
[2024-04-07 17:49] LABS: INR 1.1 (<1.2); Prothrombin Time 11.9 sec (10.0-12.5)
[2024-04-07 17:57] LABS: Sodium 162 mmol/L (137-145)
[2024-04-07 17:58] LABS: Chloride 133 mmol/L (98-107)
[2024-04-07 18:06] LABS: Glucose,Whole Blood 108 mg/dL (70-110)
[2024-04-07 19:30] LABS: Appearance,Urine Clear (Clear); Bacteria,Urine Rare /hpf; Bilirubin,Urine Negative (Negative); Blood,Urine Moderate (Negative); Color,Urine Yellow; Glucose,Urine (UA) Negative (Negative); Ketones,Urine Negative (Negative); Leukocyte Esterase,Urine Negative (Negative); Nitrite,Urine Negative (Negative); Protein,Urine Trace (Negative); RBC,Urine 1 /hpf (0-5); Specific Gravity,Urine 1.012 (1.001-1.035); Urobilinogen,Urine <2.0 mg/dL (<2.0); WBC,Urine 2 /hpf (0-5)
[2024-04-07 21:37] LABS: African American GFR (CKD) 62 (>60 ml/min/1.73 sqM); Anion Gap 5 mmol/L; Blood Urea Nitrogen 26 mg/dL (9-20); Calcium 8.9 mg/dL (8.4-10.2); Carbon Dioxide 21 mmol/L (22-30); Chloride 127 mmol/L (98-107); Glucose 160 mg/dL (74-99); Magnesium 2.4 mg/dL (1.6-2.3); Non-African American GFR(CKD) 54 (>60 ml/min/1.73 sqM); Sodium 153 mmol/L (137-145)
[2024-04-07 21:42] LABS: Potassium 2.7 mmol/L (3.5-5.1)
[2024-04-07] MEDS ORDERED: Potassium Replacement Protocol 1 EACH MISC MISCELLANE PRN (21:44)
[2024-04-07] MEDS: DEXTROSE 5% IN WATER 1,000 ML IV SCH (22:07)
[2024-04-07] MEDS: POTASSIUM CHLORIDE 10 MEQ in WATER FOR INJECTION 1 100ML.BAG IVPB SCH (22:09)
[2024-04-07 23:33] LABS: Glucose,Whole Blood 78 mg/dL (70-110)
[2024-04-08 05:11] LABS: Basophils # (A) 0.1 k/uL (0-0.2); Basophils % (A) 0 %; Eosinophils # (A) 0.3 k/uL (0-0.7); Eosinophils % (A) 2 %; HCT 46.5 % (39.0-53.0); HGB 14.9 gm/dL (13.0-17.5); Hypochromasia Moderate; Lymphocytes # (A) 1.4 k/uL (1.0-4.8); Lymphocytes % (A) 8 %; MCH 29.2 pg (25.0-35.0); MCHC 32.1 g/dL (31.0-37.0); MCV 91.2 fL (80.0-100.0); Mean Platelet Volume 7.6; Monocytes % (A) 6 %; Neutrophils # (A) 14.6 k/uL (1.3-7.7); Neutrophils % (A) 83 %; Platelet Count 168 k/uL (150-450); RDW 14.5 % (11.5-15.5); WBC 17.6 k/uL (3.8-10.6)
[2024-04-08 05:21] LABS: ALT 61 U/L (4-49); African American GFR (CKD) 54 (>60 ml/min/1.73 sqM); Albumin 3.1 g/dL (3.5-5.0); Anion Gap 7 mmol/L; Blood Urea Nitrogen 28 mg/dL (9-20); Calcium 9.1 mg/dL (8.4-10.2); Carbon Dioxide 21 mmol/L (22-30); Chloride 122 mmol/L (98-107); Glucose 117 mg/dL (74-99); Non-African American GFR(CKD) 47 (>60 ml/min/1.73 sqM); Sodium 150 mmol/L (137-145); Total Bilirubin 1.3 mg/dL (0.2-1.3); Total Protein 5.5 g/dL (6.3-8.2)
[2024-04-08 05:24] LABS: AST 99 U/L (17-59); Alkaline Phosphatase 71 U/L (38-126)
[2024-04-08] MEDS: SODIUM BICARB 8.4% 50 ML SYR (1 MEQ/ML) IV STA ×4 (06:25→13:25)
[2024-04-08 06:45] LABS: Allen Test Performed? Yes
[2024-04-08 06:46] LABS: ABG HCO3 22 mmol/L (21-25)
--- NOTE | 2024-04-08 08:39 | P.PN ---
Subjective Progress Note Date: 04/08/24 Jack Luna, is a 63-year-old male who was found unresponsive on the floor of his house by his neighbor, CPR was initiated and EMS were called patient was brought into emergency room. He was evaluated in the emergency room vital examination on presentation revealed a temperature of 95.2 pulse 110 respiration 18 blood pressure 158/70 pulse ox 100% on mechanical ventilation Laboratory data revealed a white blood count of 20.3 hemoglobin 15.4 platelet count 208 ABG revealed a pH of 6.97 pCO2 75 pO2 179 sodium 145 potassium 3.3 chloride 111 CO2 17 BUN 25 creatinine 1.23 AST 113 ALT 66 ammonia level 85 c reatinine kinase 620 serum alcohol level less than 10 Testing in the emergency room revealed CT scan of the brain revealed left acute subdural hemorrhage with subfalcine herniation and suspected early tonsillar herniation. Family was contacted regarding patient condition in the emergency room, and need to transfer to a tertiary care center, however they opted for admission to our hospital with plan to proceed with comfort care only and hospice care. Patient was admitted to ICU, on mechanical ventilation, awaiting arrival of multiple family members Past medical history is significant for underlying history of hypertension, history of COPD, history of obstructive sleep apnea maintained on BiPAP, history of gastroesophageal reflux disease, history of osteoarthritis, and history of HIV AIDS syndrome. On 04/08/2024 patient remains in the intensive care unit on mechanical ventilation patient requiring increased vasopressors. Gift of life process has been initiated workup in process critical care and neurology services following. Objective - Vital Signs Vital signs: Vital Signs Temp 99.2 F 04/08/24 07:30 Pulse 109 H 04/08/24 08:15 Resp 28 H 04/08/24 08:15 BP 99/55 04/08/24 08:15 Pulse Ox 94 L 04/08/24 08:15 FiO2 60 04/08/24 06:08 Intake & Output 04/07/24 04/08/24 04/08/24 18:59 06:59 18:59 Intake Total 110 1780.796 444.770 Output Total 1840 585 30 Balance -1730 1195.796 414.770 Weight 91.4 kg Intake: IV 110 1735 125 0.9 110 10 Clevidipine Butyrate 25 1125 125 mg In Empty Bag 1 bag @ 1 MG/HR 2 mls/hr IV .Q24H [facility] Rx#:[id number] Potassium Chloride 10 meq 600 In Water For Injection 1 100ml.bag @ 100 mls/hr IVPB Q1H [facility] Rx#: [id number] Intake, IV Titration 45.796 319.770 Amount Midazolam HCl 50 mg In 0 Sodium Chloride 0.9% 40 ml @ 1 MG/HR 1 mls/hr IV .Q24H [facility] Rx#:[id number] Norepinephrine 4 mg In 45.796 194.770 Sodium Chloride 0.9% 250 ml @ 0.03 MCG/KG/MIN 10. 369 mls/hr IV .Q24H [facility] Rx#:[id number] Potassium Chloride 10 meq 125 In Water For Injection 1 100ml.bag @ 100 mls/hr IVPB Q1H [facility] Rx#: [id number] Output: Urine 1840 585 30 Other: Voiding Method Indwelling Catheter Indwelling Catheter - Exam Patient is intubated sedated maintained on mechanical ventilation HEENT head normocephalic and atraumatic Neck is supple no JVD no goiter no lymphadenopathy no carotid bruit Chest examination is clear to auscultation no crackles no wheezing Cardiac exam reveals regular heart sounds S1 and S2 no gallops no murmurs Abdomen is soft nontender no organomegaly with normal bowel sounds Extremity exam reveals no edema no cyanosis or clubbing - Labs CBC & Chem 7: 04/08/24 04:24 04/08/24 04:24 Labs: Abnormal Lab Results - Last 24 Hours (Table) 04/07/24 04/07/24 04/07/24 Range/Units 17:20 17:20 17:20 WBC 17.0 H (3.8-10.6) k/uL Neutrophils # 13.8 H (1.3-7.7) k/uL Monocytes # 1.2 H (0-1.0) k/uL ABG pH (7.35-7.45) ABG pO2 (83-108) mmHg ABG O2 Saturation (94-97) % Sodium 162 H* (137-145) mmol/L Potassium (3.5-5.1) mmol/L Chloride 133 H* (98-107) mmol/L Carbon Dioxide (22-30) mmol/L BUN 24 H (9-20) mg/dL Creatinine (0.66-1.25) mg/dL Glucose (74-99) mg/dL Phosphorus 2.2 L (2.5-4.5) mg/dL Magnesium 2.6 H (1.6-2.3) mg/dL Delta Bilirubin 0.4 H (0.0-0.2) mg/dL AST 122 H (17-59) U/L ALT 84 H (4-49) U/L Troponin I 0.676 H* (0.000-0.034) ng/mL Total Protein (6.3-8.2) g/dL Albumin (3.5-5.0) g/dL Urine Protein (Negative) Urine Blood (Negative) Urine Bacteria (None) /hpf 04/07/24 04/07/24 04/08/24 Range/Units 19:00 21:15 04:24 WBC 17.6 H (3.8-10.6) k/uL Neutrophils # 14.6 H (1.3-7.7) k/uL Monocytes # (0-1.0) k/uL ABG pH (7.35-7.45) ABG pO2 (83-108) mmHg ABG O2 Saturation (94-97) % Sodium 153 H (137-145) mmol/L Potassium 2.7 L* (3.5-5.1) mmol/L Chloride 127 H (98-107) mmol/L Carbon Dioxide 21 L (22-30) mmol/L BUN 26 H (9-20) mg/dL Creatinine 1.41 H (0.66-1.25) mg/dL Glucose 160 H (74-99) mg/dL Phosphorus (2.5-4.5) mg/dL Magnesium 2.4 H (1.6-2.3) mg/dL Delta Bilirubin (0.0-0.2) mg/dL AST (17-59) U/L ALT (4-49) U/L Troponin I (0.000-0.034) ng/mL Total Protein (6.3-8.2) g/dL Albumin (3.5-5.0) g/dL Urine Protein Trace H (Negative) Urine Blood Moderate H (Negative) Urine Bacteria Rare H (None) /hpf 04/08/24 04/08/24 Range/Units 04:24 05:50 WBC (3.8-10.6) k/uL Neutrophils # (1.3-7.7) k/uL Monocytes # (0-1.0) k/uL ABG pH 7.29 L (7.35-7.45) ABG pO2 66 L (83-108) mmHg ABG O2 Saturation 93.0 L (94-97) % Sodium 150 H (137-145) mmol/L Potassium (3.5-5.1) mmol/L Chloride 122 H (98-107) mmol/L Carbon Dioxide 21 L (22-30) mmol/L BUN 28 H (9-20) mg/dL Creatinine 1.57 H (0.66-1.25) mg/dL Glucose 117 H (74-99) mg/dL Phosphorus (2.5-4.5) mg/dL Magnesium (1.6-2.3) mg/dL Delta Bilirubin (0.0-0.2) mg/dL AST 99 H (17-59) U/L ALT 61 H (4-49) U/L Troponin I (0.000-0.034) ng/mL Total Protein 5.5 L (6.3-8.2) g/dL Albumin 3.1 L (3.5-5.0) g/dL Urine Protein (Negative) Urine Blood (Negative) Urine Bacteria (None) /hpf Assessment and Plan Plan: Acute subdural hematoma with evidence of herniation Cardiac arrest requiring prolonged resuscitation Acute hypoxic respiratory failure requiring mechanical ventilation Underlying history of HIV AIDS syndrome Underlying history of coronary artery disease Underlying history of hypertension Underlying history of COPD At this time patient is admitted to intensive care unit He was started on mechanical ventilation in the emergency room At this time we are awaiting arrival of multiple family members, they are waiting for gift of life evaluation Plan is to proceed with comfort care only and hospice care.
--- NOTE | 2024-04-08 08:50 | XR ---
EXAMINATION TYPE: XR chest 1V portable DATE OF EXAM: 04/08/2024 5:19 AM COMPARISON: Chest radiograph from one day prior. CLINICAL INDICATION: Male, 63 years old with history of intubated; [facility] TECHNIQUE: XR chest 1V portable Frontal view of the chest. FINDINGS: FINDINGS: Lungs/Pleura: There is no evidence of pleural effusion, focal consolidation, or pneumothorax. Pulmonary vascularity: Pulmonary vascular congestion. Heart/mediastinum: Cardiomediastinal silhouette is enlarged. Musculoskeletal: No acute osseous pathology. Other findings: None Lines/Tubes: Endotracheal tube with distal tip 7.3 cm above the [place]. Nasogastric tube with its distal tip and side-port projecting under the diaphragm. IMPRESSION: 1. Nasogastric tube now an optimal placement. 2. Endotracheal tube in high position, advancement of 4 cm recommended for optimal placement. 3. Cardiomegaly. [facility], , 04/08/2024 8:47 AM
[2024-04-08] MEDS: FUROSEMIDE 10 MG/ML 4 ML VIAL IV ONE (09:35)
[2024-04-08] MEDS: DEXTROSE 5% IN WATER 1,000 ML IV ONE (09:39)
--- NOTE | 2024-04-08 10:13 | XR ---
EXAMINATION TYPE: XR chest 1V portable DATE OF EXAM: 04/08/2024 9:21 AM COMPARISON: Chest radiographs from 04/08/2024 CLINICAL INDICATION: Male, 63 years old with history of central line placement; [facility] TECHNIQUE: XR chest 1V portable Frontal view of the chest. FINDINGS: Lungs/Pleura: Bibasilar atelectasis. No evidence for pneumothorax, pleural effusion or focal consolid ation. Pulmonary vascularity: Unremarkable. Heart/mediastinum: Cardiomediastinal silhouette is unremarkable. Musculoskeletal: Multiple level degenerative disc disease changes seen throughout the spine. Midline sternotomy wires are noted. Other findings: None Lines/Tubes: Endotracheal tube with distal tip 6.9 cm above the [place]. Nasogastric tube with side-port projecting over the distal esophagus. Right internal jugular central venous catheter with distal tip at the cavoatrial junction. IMPRESSION: Endotracheal tube in high position consider advancement of 3 cm for optimal placement. Nasogastric tube in high position consider advancement of 6 cm On placement. [facility], , 04/08/2024 10:11 AM
[2024-04-08] MEDS: VASOPRESSIN 20 UNIT in SODIUM CHLORIDE 0.9% 50 ML IV SCH (10:24)
[2024-04-08] MEDS: PIPERACILLIN-TAZOBACTAM 3.375 GM in SODIUM CHLORIDE 0.9% 100 ML IVPB SCH (10:31)
--- NOTE | 2024-04-08 10:34 | CT ---
EXAMINATION TYPE: CT ChestAbdPelvis w con DATE OF EXAM: 04/08/2024 1:14 AM COMPARISON: None. CLINICAL INDICATION: Male, 63 years old with history of [facility], [facility] TECHNIQUE: Axial images at 5 mm thick sections. Reconstructed images in the coronal plane. Delayed images through the kidneys. Contrast used:100 mL of Isovue 300 with IV Contrast, (none if empty) Oral contrast used: without Oral Contrast (none if empty) CT DLP: 1454.3 mGycm, Automated exposure control for dose reduction was used. FINDINGS: CT CHEST: Patient is intubated. Nasogastric tube is present. Portion of the thyroid visualized is normal. Bilateral pleural effusions are present. Some compressive atelectasis likely present.r No enlarged mediastinal or hilar adenopathy is evident. Emphysematous changes are present bilateral lung oconnor The ascending aorta diameter at the level of the main pulmonary artery is 3.4 cm. The main pulmonary artery diameter at the bifurcation is 3.[address] ABDOMEN: Liver: Heterogenous perfusion Spleen: Normal Pancreas: Atrophic Adrenal glands: The adrenal glands are normal. Gallbladder: Normal Kidneys: No masses are evident. No hydronephrosis is present. Several cysts are present within the bilateral renal cortex on the right is includes a 1.2 cm cyst posterior superior lateral and inferior 0.8 cm cortical renal cyst. On the left this includes tiny cortical renal cysts and a larger 1.5 cm superior medial left kidney. Additional cortical renal cyst is identified in the upper pole right ki dney on the delayed images. Aorta: Vascular calcification is within the aorta. Inferior vena cava: Normal. CT PELVIS: Loops of bowel within the abdomen and pelvis are normal. The rectum and fecal debris. Studies later al contrast evaluation. 3. Small bilateral pleural effusions with atelectasis Appendix: Normal as visualized. Urinary bladder: Decompressed with catheter Genitourinary structures: No prostate enlargement identified Osseous structures: No suspicious lytic or sclerotic lesions. Degenerative changes at the right sacro iliac joint activity is present left scoliosis. IMPRESSION: 1. Small bilateral cortical renal cysts. 2. Somewhat patchy appearance to the liver may be related to contrast perfusion. [facility], , 04/08/2024 10:32 AM
[2024-04-08] MEDS: LORazepam 2 MG/ML INJ IV PRN (11:07)
[2024-04-08 11:24] LABS: Glucose,Whole Blood 204 mg/dL (70-110)
[2024-04-08] MEDS ORDERED: DEXTROSE 50% SYRINGE 50 ML IVP PRN ×2 (12:02)
--- NOTE | 2024-04-08 12:07 | P.PN ---
Subjective Progress Note Date: 04/08/24 Principal diagnosis: Cardiac arrest This is a 63-year-old white male with history of multiple medical problems including COPD, HIV, coronary artery disease, patient presented to the ER with cardiac arrest. His neighbor saw the patient around noontime, and he was not acting normal. Around 5 PM, the neighbor went into the house to check on the patient, and the patient was found unresponsive down on the floor. CPR was initiated and EMS was brought in. Patient did receive Narcan, received CPR for asystole, patient had 2 rounds of CPR and gave 2 epinephrines. Patient went into PEA and then to normal sinus rhythm. Patient was brought into the ER intubated, and apparently he had a prolonged downtime. CT of the brain showed a large left acute subdural hemorrhage with subfalcine herniation, and suspected earlier tonsillar herniation. Apparently the ER physician discussed his condition with family who recommended DNR CODE STATUS and willing to proceed with comfort care measures once more family members could make it back to town. Apparently has a sister that is traveling from out of state to arrive sometime later today. Patient was made DNR brought into the ICU, at 1 point the patient developed hypertension placed on Cleviprex, but later on developed hypotension required short brief course of norepinephrine but presently he is off pressors and off blood pressure medications. To be hemodynamically stable during my evaluation in the ICU. Patient is now on assist-control rate of 20 tidal volume 450 FiO2 60% PEEP of 5 ABG showed a pO2 of 115 pCO2 44 pH of 7.33 hence his rate was increased to 24, his FiO2 cut down to 50%, and kept otherwise on the same ventilator settings. WBC count this morning is 16.6 hemoglobin 14.1 sodium is high at 153 hence his IV fluid to be changed to D5W and his BUN is 28 creatinine 1.04 patient is being evaluated by [facility] life for possible organ donation. Patient was seen today on 04/08/2024, patient remains in the, intubated and mechanically ventilated. Patient is being being evaluated by the gift of life team, undergoing further workup before salvaging any organs for transplantation by the gift of life team. Patient remains on assist-control rate of 24 tidal volume 450 FiO2 60% and PEEP of 5 ABG showed a pO2 of 66 pCO2 45 pH of 7.29 hence his rate was increased to 28, FiO2 increased to 100% and PEEP increased to 10. Patient was on Versed drip for intermittent episodes of myoclonic jerks and tremors recommended Ativan however Ativan did not seem to hold him well, recommended that he goes back on Versed. Patient is developing hypotension requiring norepinephrine and vasopressin. He is getting maximal on both, if not improved patient will be given more fluid boluses, may even add dobutamine. However considering the patient is having ectopic beats I believe dobutamine will make him more prone to tachycardia. May consider Bal-Synephrine if necessary to replace norepinephrine. Hoping will control his tachycardia better this way overall the patient has futile prognosis, but we are maintaining the patient at this point mostly for [facility] team and hopefully get his organ salvage in the next 24 hours. Patient to be seen by neurology, EEG was done today, clinically the patient is not considered brain WBC count is 17.6 hemoglobin 14.9 sodium is 116 has the patient remains on D5W trying to correct his hypernatremia BUN is 28 creatinine 1.57. Fluid balance is positive almost 2 L in the last 24 hours Objective - Vital Signs Vital signs: Vital Signs Temp 99.7 F H 04/08/24 10:30 Pulse 133 H 04/08/24 11:45 Resp 28 H 04/08/24 11:45 BP 88/56 04/08/24 11:45 Pulse Ox 88 L 04/08/24 11:45 FiO2 100 04/08/24 11:19 Intake & Output 04/07/24 04/08/24 04/08/24 18:59 06:59 18:59 Intake Total 110 2864.469 1039.626 Output Total 1840 585 70 Balance -1730 1610.555 9790.626 Weight 91.4 kg Intake: IV 110 1735 1125 0.9 110 10 Clevidipine Butyrate 25 1125 125 mg In Empty Bag 1 bag @ 1 MG/HR 2 mls/hr IV .Q24H MICHELLE Rx#:[id number] Dextrose 5% in Water 1, 1000 000 ml @ 999 mls/hr IV . Q1H1M ONE Rx#:[id number] Potassium Chloride 10 meq 600 In Water For Injection 1 100ml.bag @ 100 mls/hr IVPB Q1H MICHELLE Rx#: [id number] Intake, IV Titration 45.796 613.626 Amount Dextrose 5% in Water 1, 250 000 ml @ 125 mls/hr IV . Q8H MICHELLE Rx#:[id number] Midazolam HCl 50 mg In 1 Sodium Chloride 0.9% 40 ml @ 1 MG/HR 1 mls/hr IV .Q24H MICHELLE Rx#:[id number] Norepinephrine 4 mg In 45.796 212.626 Sodium Chloride 0.9% 250 ml @ 0.03 MCG/KG/MIN 10. 369 mls/hr IV .Q24H MICHELLE Rx#:[id number] Piperacillin-Tazobactam 3 25 .375 gm In Sodium Chloride 0.9% 100 ml @ 25 mls/hr IVPB Q8H MICHELLE Rx#: [id number] Potassium Chloride 10 meq 125 In Water For Injection 1 100ml.bag @ 100 mls/hr IVPB Q1H MICHELLE Rx#: [id number] Output: Urine 1840 585 70 Other: Voiding Method Indwelling Catheter Indwelling Catheter ABP, PAP, CO, CI - Last Documented Arterial Blood Pressure 83/53 - Exam General: Revealed 63-year-old white male intubated mechanically ventilated, unresponsive to any stimuli. Skin: Skin is warm and dry and no rashes or lesions are noted. Eye: Dilated and unreactive Ears, nose, mouth and throat: There are moist mucous membranes and no oral lesions. Endotracheal tube and orogastric tube are intact Neck: The neck is supple, there is no tenderness or JVD. Cardiovascular: There is a regular rate and rhythm. No murmur, rub or gallop is appreciated. Respiratory: Clear bilaterally no crackles rhonchi or wheezes Gastrointestinal: Soft nontender no rebound no guarding Musculoskeletal: No deformities, could not assess range of motion Neurological: Pupils are dilated and unreactive, patient is comatose Psychiatric: Could not assess - Labs CBC & Chem 7: 04/08/24 04:24 04/08/24 04:24 Labs: Abnormal Lab Results - Last 24 Hours (Table) 04/07/24 04/07/24 04/07/24 Range/Units 17:20 17:20 17:20 WBC 17.0 H (3.8-10.6) k/uL Neutrophils # 13.8 H (1.3-7.7) k/uL Monocytes # 1.2 H (0-1.0) k/uL ABG pH (7.35-7.45) ABG pO2 (83-108) mmHg ABG O2 Saturation (94-97) % Sodium 162 H* (137-145) mmol/L Potassium (3.5-5.1) mmol/L Chloride 133 H* (98-107) mmol/L Carbon Dioxide (22-30) mmol/L BUN 24 H (9-20) mg/dL Creatinine (0.66-1.25) mg/dL Glucose (74-99) mg/dL POC Glucose (mg/dL) (70-110) mg/dL Phosphorus 2.2 L (2.5-4.5) mg/dL Magnesium 2.6 H (1.6-2.3) mg/dL Delta Bilirubin 0.4 H (0.0-0.2) mg/dL AST 122 H (17-59) U/L ALT 84 H (4-49) U/L Troponin I 0.676 H* (0.000-0.034) ng/mL Total Protein (6.3-8.2) g/dL Albumin (3.5-5.0) g/dL Urine Protein (Negative) Urine Blood (Negative) Urine Bacteria (None) /hpf 04/07/24 04/07/24 04/08/24 Range/Units 19:00 21:15 04:24 WBC 17.6 H (3.8-10.6) k/uL Neutrophils # 14.6 H (1.3-7.7) k/uL Monocytes # (0-1.0) k/uL ABG pH (7.35-7.45) ABG pO2 (83-108) mmHg ABG O2 Saturation (94-97) % Sodium 153 H (137-145) mmol/L Potassium 2.7 L* (3.5-5.1) mmol/L Chloride 127 H (98-107) mmol/L Carbon Dioxide 21 L (22-30) mmol/L BUN 26 H (9-20) mg/dL Creatinine 1.41 H (0.66-1.25) mg/dL Glucose 160 H (74-99) mg/dL POC Glucose (mg/dL) (70-110) mg/dL Phosphorus (2.5-4.5) mg/dL Magnesium 2.4 H (1.6-2.3) mg/dL Delta Bilirubin (0.0-0.2) mg/dL AST (17-59) U/L ALT (4-49) U/L Troponin I (0.000-0.034) ng/mL Total Protein (6.3-8.2) g/dL Albumin (3.5-5.0) g/dL Urine Protein Trace H (Negative) Urine Blood Moderate H (Negative) Urine Bacteria Rare H (None) /hpf 04/08/24 04/08/24 04/08/24 Range/Units 04:24 05:50 11:21 WBC (3.8-10.6) k/uL Neutrophils # (1.3-7.7) k/uL Monocytes # (0-1.0) k/uL ABG pH 7.29 L (7.35-7.45) ABG pO2 66 L (83-108) mmHg ABG O2 Saturation 93.0 L (94-97) % Sodium 150 H (137-145) mmol/L Potassium (3.5-5.1) mmol/L Chloride 122 H (98-107) mmol/L Carbon Dioxide 21 L (22-30) mmol/L BUN 28 H (9-20) mg/dL Creatinine 1.57 H (0.66-1.25) mg/dL Glucose 117 H (74-99) mg/dL POC Glucose (mg/dL) 204 H (70-110) mg/dL Phosphorus (2.5-4.5) mg/dL Magnesium (1.6-2.3) mg/dL Delta Bilirubin (0.0-0.2) mg/dL AST 99 H (17-59) U/L ALT 61 H (4-49) U/L Troponin I (0.000-0.034) ng/mL Total Protein 5.5 L (6.3-8.2) g/dL Albumin 3.1 L (3.5-5.0) g/dL Urine Protein (Negative) Urine Blood (Negative) Urine Bacteria (None) /hpf Assessment and Plan Assessment: Impression: Acute hypoxic respiratory failure secondary to cardiac arrest Acute subdural hematoma/mass with herniation History of coronary artery disease with total occlusion of RCA History of underlying COPD History of benign essential hypertension History of HIV/AIDS syndrome Recommendation: Continue ventilatory support Continue hemodynamic support GI and DVT prophylaxis Nutritional support/enteral feeding [facility] is on board for possible organ salvage in the next 24 hours Prognosis is extremely poor and guarded Critical time is over 30 minutes not including time spent on procedures Will continue to follow Time with Patient: Greater than 30
[2024-04-08] MEDS: MIDAZOLAM HCL 50 MG in SODIUM CHLORIDE 0.9% 40 ML IV SCH (12:08)
[2024-04-08] MEDS: PHENYLEPHRINE 40 MG in SODIUM CHLORIDE 0.9% 250 ML IV SCH (12:17)
[2024-04-08 12:20] LABS: HCT 46.9 % (39.0-53.0); HGB 14.5 gm/dL (13.0-17.5); Hypochromasia Marked; MCH 28.9 pg (25.0-35.0); MCHC 30.8 g/dL (31.0-37.0); MCV 93.8 fL (80.0-100.0); Mean Platelet Volume 7.8; Platelet Count 164 k/uL (150-450); RDW 14.4 % (11.5-15.5); WBC 12.3 k/uL (3.8-10.6)
[2024-04-08 12:24] LABS: INR 1.4 (<1.2); Partial Thromboplastin Time 24.6 sec (22.0-30.0); Prothrombin Time 14.2 sec (10.0-12.5)
[2024-04-08] MEDS: HYDROCORTISONE SUCCINATE 100 MG/2 ML VIAL IV SCH (12:28)
[2024-04-08] MEDS: INSULIN ASPART (NovoLOG) 100 UNIT/ML VIAL SQ SCH (12:29)
[2024-04-08 12:35] LABS: ALT 51 U/L (4-49); AST 75 U/L (17-59); African American GFR (CKD) 46 (>60 ml/min/1.73 sqM); Albumin 2.7 g/dL (3.5-5.0); Alkaline Phosphatase 70 U/L (38-126); Anion Gap 6 mmol/L; Bilirubin, Delta 0.3 mg/dL (0.0-0.2); Bilirubin,Unconjugated 0.4 mg/dL (0.0-1.1); Blood Urea Nitrogen 28 mg/dL (9-20); Calcium 8.7 mg/dL (8.4-10.2); Carbon Dioxide 19 mmol/L (22-30); Chloride 119 mmol/L (98-107); Glucose 221 mg/dL (74-99); Magnesium 1.9 mg/dL (1.6-2.3); Non-African American GFR(CKD) 40 (>60 ml/min/1.73 sqM); Phosphorus 2.3 mg/dL (2.5-4.5); Potassium 3.2 mmol/L (3.5-5.1); Sodium 144 mmol/L (137-145); Total Bilirubin 0.7 mg/dL (0.2-1.3)
[2024-04-08 13:09] LABS: ABG PCO2 76 mmHg (35-45); ABG PH 7.07 (7.35-7.45); ABG PO2 56 mmHg (83-108); ABG TCO2 24 mmol/L (19-24)
[2024-04-08 13:10] LABS: ABG Oxygen Saturation 82.3 % (94-97)
[2024-04-08 13:17] LABS: ABG Base Excess 1.1 mmol/L; ABG HCO3 31 mmol/L (21-25); ABG Oxygen Saturation 89.4 % (94-97); ABG PH 7.23 (7.35-7.45); ABG TCO2 33 mmol/L (19-24); Allen Test Performed? Yes
--- NOTE | 2024-04-08 13:21 | P.CRDCN ---
History of Present Illness Consult date: 04/08/24 History of present illness: History of Present Illness: The patient is a 63-year-old male who presented following an unwitnessed cardiac arrest and was found to have a large subdural hematoma with herniation and was made DNR. He has been evaluated for gift of life. Cardiology consultation was requested because of hemodynamic instability prior to harvesting organs. The patient is acidotic. Prior to that apparently he has been stable. Reviewing his records he has a history of CAD has been seen by Dr. Solomon. Underwent cardiac catheterization in 2021 and had severe distal left main disease and chronically occluded RCA. He underwent stenting of the left main with Impella support, had a subsequent procedure to try to recanalize the RCA that was unsuccessful. At that time his left ventricle systolic function was preserved. No other history is available from the cardiac standpoint. The patient has been in sinus mechanism. He is acidotic, requiring vasopressors but his blood pressure was better with bicarb injections. There is no evidence of ventricular tachycardia. No other history could be obtained at this point. Medications: As an outpatient included Lopressor 25 mg twice a day metoprolol 40 mg daily, Xarelto, furosemide, Detrol, Desyrel, Lasix, Atrovent, Plavix, Celexa. Accuracy of the list is not clear. Review of Systems: Could not be obtained Physical Examination: 63-year-old male, intubated unresponsive,Blood pressure 110/70, Heart rate 95 Head: Normocephalic. Eyes: Sclerae nonicteric. Pupils fixed and nonreactive Neck: Good carotid upstroke, no bruit, no jugular venous distention. Lungs: Clear to auscultation, anteriorly. Heart: Regular rate and rhythm, S1-S2, no S3, no rub. Systolic ejection murmur. Abdomen: Soft , positive bowel sounds no organomegaly. Extremities: No edema, intact distal pulses. Labs: WBC 12.3, pH 7.29, pO2 66. BUN 28, creatinine 1.79. On presentation lactic acid 11. CT scan of the head showed left acute subdural hemorrhage with subfalcine herniation and suspected early or tonsillar herniation EKG: Sinus mechanism, right bundle branch block Impression: 1. Cardiac arrest with subdural hematoma 2. Known history of severe CAD 3. Hemodynamic instability with acidosis probably central 4. Acute renal injury Plan: 1. Obtain an echocardiogram 2. His decompensation is most likely related to the hematoma and the herniation 3. Bicarb drip to see if he can be stabilized to undergo gift of life donation 4. Thank you for this consult 5. Case was discussed with Dr. Onofre Past Medical History Past Medical History: COPD, GERD/Reflux, Hypertension, Osteoarthritis (OA), Sleep Apnea/CPAP/BIPAP Additional Past Medical History / Comment(s): HIV/AIDS(1990) back pain, neuropathy,sleep apnea, ARTHRITIS History of Any Multi-Drug Resistant Organisms: None Reported Past Surgical History: Heart Catheterization With Stent Additional Past Surgical History / Comment(s): neck surgery, throat surgery, Past Anesthesia/Blood Transfusion Reactions: No Reported Reaction Date of Last Stent Placement:: 10/2021 Past Psychological History: Bipolar, Depression, Panic Disorder Additional Psychological History / Comment(s): Pt resides alone in an apartment. He uses a walker to ambulate. He is disabled. He drives. Smoking Status: Current every day smoker Past Alcohol Use History: Occasional Additional Past Alcohol Use History / Comment(s): Pt started smoking in 1976 and is about a ppd smoker. He occasionally drinks alcohol-[employer]. Past Drug Use History: Marijuana Additional Drug Use History / Comment(s): USES EDIBLES-FOR PAIN RELIEF - Past Family History Brother(s) Family Medical History: Diabetes Mellitus Father Family Medical History: Cancer Additional Family Medical History / Comment(s): Father of throat cancer. Mother Additional Family Medical History / Comment(s): Mother of a ruptured brain aneurysm. Medications and Allergies Home Medications Medication Instructions Recorded Confirmed Type Emtricitabine/Tenofov Alafenam 1 tab PO DAILY 09/01/18 04/07/24 History [Descovy 200-25 mg Tablet] Levothyroxine Sodium [Synthroid] 25 mcg PO DAILY 09/01/18 04/07/24 History Citalopram Hydrobromide [CeleXA] 40 mg PO DAILY 03/31/19 04/07/24 History Baclofen [Lioresal] 20 mg PO QID 11/22/20 04/07/24 History Cetirizine HCl [Zyrtec] 10 mg PO DAILY 11/22/20 04/07/24 History Gabapentin 800 mg PO TID 11/22/20 04/07/24 History Morphine Sulfate Ir [MSIR] 15 mg PO DAILY 05/10/21 04/07/24 History Dolutegravir Sodium [Tivicay] 50 mg PO DAILY 08/14/21 04/07/24 History Ipratropium Dickens 0.06%Nasal 2 spray EA NOSTRIL BID PRN 08/14/21 04/07/24 History [Atrovent Nasal 0.06%] Docusate Sodium [Dok] 100 mg PO HS PRN 10/23/21 04/07/24 History Phentermine HCl [Adipex-P] 37.5 mg PO DAILY 10/23/21 04/07/24 History Clopidogrel [Plavix] 75 mg PO DAILY tab 11/04/21 04/07/24 Rx Nitroglycerin Sl Tabs [Nitrostat] 0.4 mg SUBLINGUAL Q5M PRN tab 11/04/21 04/07/24 Rx Etravirine 200 mg PO BID 01/02/22 04/07/24 History Rivaroxaban [Xarelto] 20 mg PO DAILY 01/02/22 04/07/24 History Albuterol Inhaler [Ventolin Hfa 2 puff INHALATION RT-Q4H PRN 04/07/24 04/07/24 History Inhaler] Atorvastatin [Lipitor] 40 mg PO DAILY 04/07/24 04/07/24 History Clindamycin Phosphate 1% Swab 1 applic TOPICAL BID PRN 04/07/24 04/07/24 History Furosemide [Lasix] 40 mg PO BID 04/07/24 04/07/24 History L.acidoph,Paracasei, B.lactis 1 cap PO DAILY 04/07/24 04/07/24 History [Probiotic] Metoprolol Tartrate [Lopressor] 25 mg PO BID 04/07/24 04/07/24 History Morphine Sulfate ER [Ms Contin] 15 mg PO BID 04/07/24 04/07/24 History Multivitamins, Thera [Multivitamin 1 tab PO DAILY 04/07/24 04/07/24 History (formulary)] Mupirocin 2% Oint [Bactroban 2% 1 applic TOPICAL TID 04/07/24 04/07/24 History Oint] Prostate Therapy Supplement 1 tab PO DAILY 04/07/24 04/07/24 History Tolterodine ER [Detrol LA] 4 mg PO DAILY 04/07/24 04/07/24 History polyethylene glycoL 3350 [Miralax] 17 gm PO DAILY 04/07/24 04/07/24 History traZODone HCL [Desyrel] 100 mg PO HS 04/07/24 04/07/24 History Allergies Allergy/AdvReac Type Severity Reaction Status Date / Time azithromycin Allergy Rash/Hives Verified 04/07/24 11:07 [From Zithromax Z-Simone] levofloxacin [From Levaquin] Allergy Verified 04/07/24 11:07 Sulfa (Sulfonamide Allergy Rash/Hives Verified 04/07/24 11:07 Antibiotics) Physical Exam Vitals: Vital Signs Temp Pulse Resp BP Pulse Ox FiO2 04/08/24 12:45 140 H 28 H 76/58 84 L 04/08/24 12:30 137 H 28 H 79/53 83 L 04/08/24 12:15 138 H 28 H 81/51 84 L 04/08/24 12:00 131 H 28 H 86/49 89 L 04/08/24 11:45 133 H 28 H 88/56 88 L 04/08/24 11:30 126 H 28 H 96/56 04/08/24 11:19 100 04/08/24 11:15 126 H 28 H 105/52 88 L 100 04/08/24 11:00 123 H 28 H 110/68 97 100 04/08/24 10:45 130 H 28 H 89/61 100 04/08/24 10:30 99.7 F H 129 H 28 H 89/61 96 04/08/24 10:15 130 H 28 H 89/61 96 04/08/24 10:00 124 H 28 H 85/56 95 04/08/24 09:45 128 H 28 H 85/56 97 04/08/24 09:30 135 H 28 H 96/60 98 04/08/24 09:15 117 H 28 H 83/63 04/08/24 09:00 117 H 28 H 98/70 04/08/24 08:45 112 H 28 H 79/62 100 04/08/24 08:30 112 H 28 H 88/56 92 L 04/08/24 08:15 109 H 28 H 99/55 94 L 04/08/24 08:00 113 H 28 H 83/45 91 L 04/08/24 07:45 123 H 28 H 158/96 91 L 04/08/24 07:30 99.2 F 118 H 28 H 66/50 92 L 04/08/24 07:15 102 H 28 H 106/72 04/08/24 07:00 98 28 H 86/47 04/08/24 06:45 102 H 28 H 73/58 04/08/24 06:30 100 28 H 72/55 95 04/08/24 06:15 101 H 28 H 96/59 96 04/08/24 06:08 60 04/08/24 06:00 101 H 24 100/52 96 04/08/24 05:45 98 24 107/48 96 04/08/24 05:30 105 H 24 97/61 97 04/08/24 05:15 101 H 24 81/58 97 04/08/24 05:00 105 H 24 101/57 95 04/08/24 04:45 104 H 24 83/54 96 04/08/24 04:30 105 H 24 108/72 96 04/08/24 04:15 104 H 24 101/55 96 04/08/24 04:02 60 04/08/24 04:00 99 F 103 H 24 97/60 97 60 04/08/24 03:45 96 24 103/57 96 04/08/24 03:30 102 H 24 96/51 96 04/08/24 03:15 94 24 82/61 96 04/08/24 03:00 98 24 86/55 94 L 04/08/24 02:45 103 H 24 80/56 93 L 04/08/24 02:30 100 24 80/56 93 L 04/08/24 02:15 101 H 24 80/60 93 L 04/08/24 02:00 98 24 85/56 92 L 04/08/24 01:45 100 24 104/74 94 L 04/08/24 01:30 95 24 104/74 94 L 04/08/24 01:15 98 24 104/74 95 04/08/24 00:45 94/65 04/08/24 00:30 94 24 84/63 04/08/24 00:15 96 24 86/64 94 L 04/08/24 00:12 95 24 86/64 94 L 04/08/24 00:00 99.1 F 101 H 24 89/65 94 L 60 04/07/24 23:45 100 24 92/62 93 L 24 23:40 60 04/07/24 23:30 101 H 24 90/67 93 L 24 23:15 100 24 78/57 92 L 24 23:00 100 24 79/56 92 L 24 22:45 98 24 81/65 92 L 24 22:30 93 24 78/60 91 L 24 22:15 90 24 90/63 90 L 24 22:00 95 24 82/59 89 L 24 21:45 93 24 80/62 90 L 24 21:30 94 24 79/58 91 L 24 21:15 89 24 78/62 92 L 24 21:00 93 24 89/71 91 L 24 20:45 94 24 96/74 92 L 04/07/24 20:30 92 24 75/54 91 L 04/07/24 20:15 95 24 97/69 90 L 04/07/24 20:00 99 F 93 24 73/57 90 L 60 04/07/24 19:56 50 04/07/24 19:45 93 24 80/57 90 L 24 19:30 93 24 83/60 91 L 04/07/24 19:15 95 24 93/68 90 L 24 19:00 95 24 83/65 91 L 24 18:45 95 24 83/65 90 L 24 18:30 96 24 84/63 91 L 04/07/24 18:15 98 24 83/64 92 L 24 18:00 98 24 79/64 91 L 24 17:45 96 24 82/65 90 L 1424 17:30 100 24 79/66 90 L 1424 17:15 98 24 79/64 94 L 1424 17:00 98 24 107/79 91 L 1424 16:45 99 24 93/73 91 L 1424 16:30 98 24 90/71 92 L 1424 16:15 96 24 92/72 93 L 1424 16:00 98 24 95/77 93 L 60 04/07/24 15:45 98 24 98/77 93 L 04/07/24 15:36 50 04/07/24 15:30 95 24 99/76 93 L 04/07/24 15:15 98 24 95/75 92 L 04/07/24 15:00 94 5 L 92/73 93 L 04/07/24 14:45 94 6 L 99/73 93 L 04/07/24 14:30 98 7 L 96/76 93 L 04/07/24 14:15 98 4 L 103/75 93 L 04/07/24 14:00 99 4 L 99/77 93 L 04/07/24 13:45 96 10 L 105/82 92 L 04/07/24 13:30 98 7 L 104/79 92 L 04/07/24 13:15 96 16 105/77 89 L Intake and Output 04/07/24 04/08/24 04/08/24 22:59 06:59 14:59 Intake Total 598.656 1165.436 1740.226 Output Total 430 305 70 Balance -527.672 9997.436 1670.226 Intake: IV 165 1600 1125 0.9 40 Clevidipine Butyrate 25 125 1000 125 mg In Empty Bag 1 bag @ 1 MG/HR 2 mls/hr IV .Q24H [facility] Rx#:[id number] Dextrose 5% in Water 1, 1000 000 ml @ 999 mls/hr IV . Q1H1M [facility] Rx#:[id number] Potassium Chloride 10 meq 600 In Water For Injection 1 100ml.bag @ 100 mls/hr IVPB Q1H [facility] Rx#: [id number] Intake, IV Titration 16.360 29.436 615.226 Amount Dextrose 5% in Water 1, 250 000 ml @ 125 mls/hr IV . Q8H [facility] Rx#:[id number] Midazolam HCl 50 mg In 1 Sodium Chloride 0.9% 40 ml @ 1 MG/HR 1 mls/hr IV .Q24H [facility] Rx#:[id number] Midazolam HCl 50 mg In 1.6 Sodium Chloride 0.9% 40 ml @ 3 MG/HR 3 mls/hr IV .[id number] [facility] Rx#: [id number] Norepinephrine 4 mg In 16.360 29.436 212.626 Sodium Chloride 0.9% 250 ml @ 0.03 MCG/KG/MIN 10. 369 mls/hr IV .Q24H [facility] Rx#:[id number] Piperacillin-Tazobactam 3 25 .375 gm In Sodium Chloride 0.9% 100 ml @ 25 mls/hr IVPB Q8H [facility] Rx#: [id number] Potassium Chloride 10 meq 125 In Water For Injection 1 100ml.bag @ 100 mls/hr IVPB Q1H [facility] Rx#: [id number] Output: Urine 430 305 70 Other: Voiding Method Indwelling Catheter Indwelling Catheter Weight 91.4 kg ABP, PAP, CO, CI - Last 8 Hours Arterial Blood Pressure 73/55 Arterial Blood Pressure 66/50 Arterial Blood Pressure 65/48 Arterial Blood Pressure 66/48 Arterial Blood Pressure 83/53 Arterial Blood Pressure 99/61 Arterial Blood Pressure 94/54 Arterial Blood Pressure 103/61 Arterial Blood Pressure 76/48 Arterial Blood Pressure 102/65 Results 04/08/24 11:45 04/08/24 11:45 Cardiac Enzymes 04/07/24 04/07/24 04/08/24 Range/Units 17:20 17:20 04:24 AST 122 H 99 H (17-59) U/L Troponin I 0.676 H* (0.000-0.034) ng/mL 04/08/24 Range/Units 11:45 AST 75 H (17-59) U/L Troponin I (0.000-0.034) ng/mL Coagulation 04/07/24 04/08/24 Range/Units 17:20 11:45 PT 11.9 14.2 H (10.0-12.5) sec APTT 23.0 24.6 (22.0-30.0) sec CBC 04/07/24 04/08/24 04/08/24 Range/Units 17:20 04:24 11:45 WBC 17.0 H 17.6 H 12.3 H (3.8-10.6) k/uL RBC 5.57 5.10 5.00 (4.30-5.90) m/uL Hgb 16.0 14.9 14.5 (13.0-17.5) gm/dL Hct 50.6 46.5 46.9 (39.0-53.0) % Plt Count 185 168 164 (150-450) k/uL Comprehensive Metabolic Panel 04/07/24 04/07/24 04/08/24 Range/Units 17:20 21:15 04:24 Sodium 162 H* 153 H 150 H (137-145) mmol/L Potassium 3.5 2.7 L* 4.0 (3.5-5.1) mmol/L Chloride 133 H* 127 H 122 H (98-107) mmol/L Carbon Dioxide 23 21 L 21 L (22-30) mmol/L BUN 24 H 26 H 28 H (9-20) mg/dL Creatinine 1.22 1.41 H 1.57 H (0.66-1.25) mg/dL Glucose 94 160 H 117 H (74-99) mg/dL Calcium 9.7 8.9 9.1 (8.4-10.2) mg/dL Unconjugated Bilirubin 0.9 (0.0-1.1) mg/dL AST 122 H 99 H (17-59) U/L ALT 84 H 61 H (4-49) U/L Alkaline Phosphatase 80 71 (38-126) U/L Total Protein 6.7 5.5 L (6.3-8.2) g/dL Albumin 4.1 3.1 L (3.5-5.0) g/dL 04/08/24 Range/Units 11:45 Sodium 144 (137-145) mmol/L Potassium 3.2 L (3.5-5.1) mmol/L Chloride 119 H (98-107) mmol/L Carbon Dioxide 19 L (22-30) mmol/L BUN 28 H (9-20) mg/dL Creatinine 1.79 H (0.66-1.25) mg/dL Glucose 221 H (74-99) mg/dL Calcium 8.7 (8.4-10.2) mg/dL Unconjugated Bilirubin 0.4 (0.0-1.1) mg/dL AST 75 H (17-59) U/L ALT 51 H (4-49) U/L Alkaline Phosphatase 70 (38-126) U/L Total Protein 5.0 L (6.3-8.2) g/dL Albumin 2.7 L (3.5-5.0) g/dL Current Medications Generic Name Dose Route Start Last Admin Trade Name Freq PRN Reason Stop Dose Admin Dextrose/Water 25 ml 04/08/24 12:02 Dextrose 50% Syringe 50 Ml IVP PER PROTOCOL PRN Hypoglycemia Protocol Dextrose/Water 50 ml 04/08/24 12:02 Dextrose 50% Syringe 50 Ml IVP PER PROTOCOL PRN Hypoglycemia Protocol Hydrocortisone Sodium Succinate 100 mg 04/08/24 12:00 04/08/24 12:28 Hydrocortisone Succinate 100 Mg/2 Ml Vial IV 100 mg Q8H [facility] Administration Propofol 1,000 mg/ IV Solution 100 mls @ 8.165 mls/hr 04/06/24 19:15 04/08/24 12:54 IV Not Given .[id number] [facility] Protocol 15 MCG/KG/MIN Clevidipine 25 mg/ IV Solution 50 mls @ 2 mls/hr 04/06/24 22:30 04/07/24 20:34 IV Not Given .Q24H [facility] Protocol 1 MG/HR Norepinephrine Bitartrate 4 mg 254 mls @ 10.369 mls/hr 04/06/24 23:45 04/08/24 10:42 / Sodium Chloride IV 0.14 mcg/kg/min .Q24H [facility] 48.389 mls/hr Administration Protocol 0.03 MCG/KG/MIN Dextrose/Water 1,000 mls @ 125 mls/hr 04/07/24 22:00 04/08/24 06:25 Dextrose 5%-Water Iv Soln IV 125 mls/hr .Q8H [facility] Administration Piperacillin Sod/Tazobactam 100 mls @ 25 mls/hr 04/08/24 10:00 04/08/24 10:31 Sod 3.375 gm/ Sodium Chloride IVPB 25 mls/hr Q8H [facility] Administration Protocol Vasopressin 20 unit/ Sodium 51 mls @ 4.59 mls/hr 04/08/24 10:15 04/08/24 10:24 Chloride IV 0.03 units/min .[id number] [facility] 4.59 mls/hr Administration Protocol 0.03 UNITS/MIN Midazolam HCl 50 mg/ Sodium 50 mls @ 3 mls/hr 04/08/24 12:30 04/08/24 12:40 Chloride IV 0 mg/hr .[id number] [facility] 0 mls/hr Titration Protocol 3 MG/HR Phenylephrine HCl 40 mg/ 254 mls @ 17.412 mls/hr 04/08/24 12:15 11/15/24 12:17 Sodium Chloride IV 0.5 mcg/kg/min .[id number] [facility] 17.412 mls/hr Administration Protocol 0.5 MCG/KG/MIN Sodium Bicarbonate 150 ml/ 1,150 mls @ 100 mls/hr 04/08/24 13:15 Dextrose/Water IV .[id number] [facility] Insulin Aspart 0 unit 04/08/24 12:00 04/08/24 12:29 Insulin Aspart (Novolog) 100 Unit/Ml Vial SQ 4 unit Q4H [facility] Administration Protocol Miscellaneous Information 1 each 04/07/24 21:44 Potassium Replacement Protocol 1 Each [facility] MISCELLANE DAILY PRN Per Protocol Protocol Morphine Sulfate 2 mg 04/06/24 20:24 Morphine Sulfate 2 Mg/Ml Syringe IV Q2HR PRN Moderate Pain (Scale 4 to 6) Naloxone HCl 0.2 mg 04/07/24 06:23 Naloxone 0.4 Mg/Ml 1 Ml Vial IV Q2M PRN Opioid Reversal Intake and Output 04/07/24 04/08/24 04/08/24 22:59 06:59 14:59 Intake Total 480.519 2998.436 1740.226 Output Total 430 305 70 Balance -751.498 6306.436 1670.226 Intake: IV 165 1600 1125 0.9 40 Clevidipine Butyrate 25 125 1000 125 mg In Empty Bag 1 bag @ 1 MG/HR 2 mls/hr IV .Q24H [facility] Rx#:[id number] Dextrose 5% in Water 1, 1000 000 ml @ 999 mls/hr IV . Q1H1M [facility] Rx#:[id number] Potassium Chloride 10 meq 600 In Water For Injection 1 100ml.bag @ 100 mls/hr IVPB Q1H [facility] Rx#: [id number] Intake, IV Titration 16.360 29.436 615.226 Amount Dextrose 5% in Water 1, 250 000 ml @ 125 mls/hr IV . Q8H [facility] Rx#:[id number] Midazolam HCl 50 mg In 1 Sodium Chloride 0.9% 40 ml @ 1 MG/HR 1 mls/hr IV .Q24H [facility] Rx#:[id number] Midazolam HCl 50 mg In 1.6 Sodium Chloride 0.9% 40 ml @ 3 MG/HR 3 mls/hr IV .[id number] [facility] Rx#: [id number] Norepinephrine 4 mg In 16.360 29.436 212.626 Sodium Chloride 0.9% 250 ml @ 0.03 MCG/KG/MIN 10. 369 mls/hr IV .Q24H [facility] Rx#:[id number] Piperacillin-Tazobactam 3 25 .375 gm In Sodium Chloride 0.9% 100 ml @ 25 mls/hr IVPB Q8H [facility] Rx#: [id number] Potassium Chloride 10 meq 125 In Water For Injection 1 100ml.bag @ 100 mls/hr IVPB Q1H [facility] Rx#: [id number] Output: Urine 430 305 70 Other: Voiding Method Indwelling Catheter Indwelling Catheter Weight 91.4 kg 04/08/24 11:45 04/08/24 11:45
[2024-04-08] MEDS: DEXTROSE 5% IN WATER 1,000 ML with SODIUM BICARB (1 MEQ/ML) 150 ML IV SCH (13:23)
[2024-04-08 13:31] LABS: ABG PCO2 74 mmHg (35-45); ABG PO2 59 mmHg (83-108)
[2024-04-08] MEDS: DEXAMETHASONE SOD PHOSPHATE 10 MG/ML 1 ML VIAL IVP STA (13:35)
--- NOTE | 2024-04-08 13:47 | XR ---
EXAMINATION TYPE: XR chest 1V portable DATE OF EXAM: 04/08/2024 1:23 PM COMPARISON: Chest radiographs from CLINICAL INDICATION: Male, 63 years old with history of decreased ABG; [facility] TECHNIQUE: XR chest 1V portable Frontal view of the chest. FINDINGS: Lungs/Pleura: There is no evidence of pleural effusion, focal consolidation, or pneumothorax. Pulmonary vascularity: Unremarkable. Heart/mediastinum: Cardiomediastinal silhouette is unremarkable. Musculoskeletal: No acute osseous pathology. Other findings: None Lines/Tubes: Endotracheal tube with distal tip 8.9 cm above the [place]. Nasogastric tube with side-port projecting over the distal esophagus. IMPRESSION: Endotracheal tube in high position and advancement of 6 cm recommended for optimal placement. Nasogastric tube in high position and advancement of 8 cm recommended for optimal placement [facility], , 04/08/2024 1:44 PM
[2024-04-08 13:50] LABS: ABG PCO2 76 mmHg (35-45); ABG PH 7.07 (7.35-7.45)
[2024-04-08 13:51] LABS: ABG HCO3 22 mmol/L (21-25); ABG Oxygen Saturation 82.3 % (94-97); ABG PO2 56 mmHg (83-108); ABG TCO2 24 mmol/L (19-24)
[2024-04-08] MEDS: NOREPINEPHRINE 8 MG in SODIUM CHLORIDE 0.9% 250 ML IV SCH (14:15)
[2024-04-08 17:23] LABS: Glucose,Whole Blood 139 mg/dL (70-110)
[2024-04-08 17:54] LABS: Glucose,Whole Blood 138 mg/dL (70-110)
--- NOTE | 2024-04-08 18:39 | OP ---
OPERATIVE REPORT DATE OF SERVICE : PROCEDURE PERFORMED: Placement of a right IJ triple-lumen catheter. MACHINE SETTER AUTOMATIC: Dr. Wes Cm/Internal Medicine resident. PREOPERATIVE DIAGNOSIS: Acute hypoxic respiratory failure and subdural hematoma/cardiac arrest. POSTOPERATIVE DIAGNOSIS: Acute hypoxic respiratory failure and subdural hematoma/cardiac arrest. ANESTHESIA USED: 2 mL of 1% lidocaine. DESCRIPTION OF PROCEDURE: The patient was placed in a Trendelenburg position, the area of the right neck was prepared in a sterile fashion. Drapes were applied. The area behind the posterior belly of the sternocleidomastoid was locally anesthetized with lidocaine. Then using the posterior approach, the right internal jugular vein was easily cannulated, a guidewire was placed, and a triple-lumen catheter was inserted over the guidewire, and the guidewire was removed. Good blood flow was noted in the 3 different ports of the triple-lumen catheter, line was secured using 3.0 silk sutures, and chest x-ray showed adequate placement of the line and no complications. Procedure was well tolerated. MMODL / ALVARON: [id number] /
[2024-04-08] MEDS: POTASSIUM CHLORIDE 20 MEQ in WATER FOR INJECTION 1 100ML.BAG IVPB SCH (18:44)
--- NOTE | 2024-04-08 18:53 | PCN ---
PROCEDURE NOTE PROCEDURE: Placement of a left radial arterial line. PREOPERATIVE DIAGNOSIS: Acute hypoxic respiratory failure. POSTOPERATIVE DIAGNOSIS: Acute hypoxic respiratory failure. ANESTHESIA USED: None deployed. DESCRIPTION OF PROCEDURE: The patient was placed in a supine position, the left wrist was prepared in a sterile fashion, drapes were applied. The left radial artery was palpated, cannulated, and a guidewire was placed. A Cook catheter was inserted over the guidewire, and the guidewire was removed. Good blood flow, good waveform, no complications, line was secured using 3.0 silk sutures. MMODL / IJN: [id number] /
--- NOTE | 2024-04-08 19:14 | CA ---
Transthoracic Echo Report Name: Jack Luna Age: 63 Gender: M : 1960 Exam Date: 04/08/2024 14:47 Exam Location: [facility] Ht (in): 67 Wt (lb): 201 Ordering Physician: Roni Onofre MD Attending/Referring Phys: Social Media Strategist Michelle Lopez RDCS Procedure CPT: Indications: cardiac issues Cardiac Hx: Technical Quality: Technically difficult study Contrast 1: Definity Total Dose (mL): 2 Contrast 2: Total Dose (mL): MEASUREMENTS (Male / Female) Normal Values 2D ECHO LV Diastolic Diameter PLAX 3.5 cm 4.2 - 5.9 / 3.9 - 5.3 cm LV Systolic Diameter PLAX 2.8 cm IVS Diastolic Thickness 1.6 cm 0.6 - 1.0 / 0.6 - 0.9 cm LVPW Diastolic Thickness 1.5 cm 0.6 - 1.0 / 0.6 - 0.9 cm LV Relative Wall Thickness 0.9 RV Internal Dim ED PLAX 2.9 cm LV Diastolic Volume MOD 4C 83.2 cm??? LV Systolic Volume MOD 4C 58.2 cm??? LV Ejection Fraction MOD 4C 30.0 % LV Cardiac Index MOD 4C 1434.7 cm???/min???m??? LV Diastolic Length 4C 7.3 cm LV Systolic Length 4C 6.7 cm M-MODE Aortic Root Diameter MM 3.1 cm AV Cusp Separation MM 1.5 cm DOPPLER AV Peak Velocity 153.9 cm/s AV Peak Gradient 9.5 mmHg TR Peak Velocity 235.6 cm/s TR Peak Gradient 22.2 mmHg Right Ventricular Systolic Press 32.4 mmHg FINDINGS Left Ventricle Left ventricular ejection fraction is estimated at 40 %. Small left ventricular cavity. Moderate concentric left ventricular hypertrophy. Moderately reduced global left ventricular systolic function. Right Ventricle Normal right ventricular size and function. Right ventricular systolic pressure within normal limits. Right Atrium Right atrium not well visualized. Left Atrium Left atrium not well visualized. Mitral Valve Structurally normal mitral valve. No mitral stenosis, regurgitation or prolapse. Aortic Valve Aortic valve not well visualized. No aortic valve stenosis or regurgitation. Tricuspid Valve Tricuspid valve not well visualized. Mild tricuspid regurgitation. Pulmonic Valve Pulmonic valve not well visualized. Pericardium No pericardial or pleural effusion. Aorta Normal size aortic root and proximal ascending aorta. CONCLUSIONS Technically difficult study for interpretation. Poorly visualized endocardium. The patient was tachycardic Is difficult to assess ejection fraction. The EF is probably around 40% Overall normal intracardiac valves Normal pulmonary artery systolic pressure No pericardial effusion Previewed by: Dr. Tony Zhong MD (Electronically Signed) Final Date: 08 April 2024 19:13
[2024-04-08 20:39] LABS: HCT 44.7 % (39.0-53.0); HGB 14.4 gm/dL (13.0-17.5); Hypochromasia Slight; MCH 29.1 pg (25.0-35.0); MCHC 32.2 g/dL (31.0-37.0); MCV 90.7 fL (80.0-100.0); Mean Platelet Volume 7.9; Platelet Count 177 k/uL (150-450); RBC 4.93 m/uL (4.30-5.90); RDW 14.6 % (11.5-15.5); WBC 20.4 k/uL (3.8-10.6)
[2024-04-08 20:47] LABS: INR 1.6 (<1.2); Partial Thromboplastin Time 26.1 sec (22.0-30.0); Prothrombin Time 16.4 sec (10.0-12.5)
[2024-04-08] MEDS: SODIUM CHLORIDE 0.9% 1,000 ML IV SCH (20:56)
[2024-04-08 21:06] LABS: Glucose,Whole Blood 198 mg/dL (70-110)
[2024-04-08 21:15] LABS: ABG Base Excess 1.5 mmol/L; ABG HCO3 26 mmol/L (21-25); ABG PCO2 41 mmHg (35-45); ABG PH 7.42 (7.35-7.45); ABG PO2 151 mmHg (83-108); ABG TCO2 27 mmol/L (19-24); Allen Test Performed? Yes
[2024-04-08 21:25] LABS: ALT 48 U/L (4-49); AST 82 U/L (17-59); African American GFR (CKD) 52 (>60 ml/min/1.73 sqM); Albumin 2.4 g/dL (3.5-5.0); Alkaline Phosphatase 65 U/L (38-126); Anion Gap 5 mmol/L; Bilirubin, Delta 0.5 mg/dL (0.0-0.2); Bilirubin,Unconjugated 0.5 mg/dL (0.0-1.1); Blood Urea Nitrogen 28 mg/dL (9-20); Calcium 8.1 mg/dL (8.4-10.2); Carbon Dioxide 23 mmol/L (22-30); Chloride 113 mmol/L (98-107); Glucose 168 mg/dL (74-99); Magnesium 1.6 mg/dL (1.6-2.3); Non-African American GFR(CKD) 45 (>60 ml/min/1.73 sqM); Phosphorus 1.6 mg/dL (2.5-4.5); Potassium 4.4 mmol/L (3.5-5.1); Sodium 141 mmol/L (137-145); Total Protein 4.6 g/dL (6.3-8.2)
[2024-04-08 23:04] LABS: Glucose,Whole Blood 189 mg/dL (70-110)
[2024-04-09 00:04] LABS: Glucose,Whole Blood 226 mg/dL (70-110)
--- NOTE | 2024-04-09 00:35 | P.CNNES ---
History of Present Illness Consult date: 04/08/24 Requesting physician: Daniela Rojo Reason for Consult: subdural hemorrhage, gift of life candidate History of Present Illness: Patient is a 63-year-old male, with past medical history of HIV, COPD, chronic pain, brought to the hospital by ambulance 2 days ago, 04/06/2024 at 5:35 PM for cardiac arrest. Patient not able to provide any history. As per EMS flowsheet, when they arrived on the scene, patient was in cardiac arrest. Patient was last seen normal around noon that day (EMS activated at 4:57 PM). He was found down by neighbor, pulseless and apneic at 5 PM. This arrest was unwitnessed, unknown etiology. CPR was initiated by neighbor. Patient was placed on AED by FD prior to EMS arrival with no shock advised. CPR was continued by FD. Patient was intubated. IV access obtained and patient given epinephrine at 5:12 PM. Pulse check revealed PEA. CPR was continued. Second epi given at 5:16 PM. Upon pulse check, patient was found to have a strong pulse present, both radial and femoral. ROSC achieved at 5:17 PM. Patient was in sinus tachycardia. Vital signs on arrival blood pressure 158/70, pulse rate 110. Temperature 95.2. Tmax 100.3. Blood test shows WBC 20.3 hemoglobin 15.4, normal platelets. PT PTT normal. ABG with pH 6.97, pCO2 75, pO2 179. Sodium normal potassium 3.3, BUN 25 creatinine 1.25. AST 1 and 13, ALT 66, lactate 11.0. CK6 20, UA negative. Urine drug screen positive for amphetamines. Coronavirus PCR negative. Patient's sodium has gone up to 162, now 150. CT head revealed left acute subdural hemorrhage with sulfacytine herniation and suspected earlier tonsillar herniation. I have personally reviewed CT head, agree with the findings. CT of the cervical spine showed no evidence of cervical spine fracture, mild multilevel degenerative disease, posterior left and lateral right rib fractures. EKG showed atrial fibrillation with rapid ventricular response. Most recent chest x-ray showed endotracheal tube in high position. CT of abdomen chest and pelvis revealed somewhat patchy appearance to the liver may be related to contrast perfusion. Small bilateral cortical renal cysts. Home medications include Lipitor 40 mg, morphine sulfate 50 mg twice daily trazodone Detrol Xarelto 20 mg daily, Plavix 20 mg daily phentermine, MS IR 15 mg daily, baclofen 20 mg 4 times daily gabapentin. Patient at present is deeply comatose, with no cortical or brainstem functions noted. Please refer to examination below. Review of Systems ROS unobtainable: due to endotracheal tube, due to mental status Past Medical History Past Medical History: COPD, GERD/Reflux, Hypertension, Osteoarthritis (OA), Sleep Apnea/CPAP/BIPAP Additional Past Medical History / Comment(s): HIV/AIDS(1990) back pain, neuropathy,sleep apnea, ARTHRITIS History of Any Multi-Drug Resistant Organisms: None Reported Past Surgical History: Heart Catheterization With Stent Additional Past Surgical History / Comment(s): neck surgery, throat surgery, Past Anesthesia/Blood Transfusion Reactions: No Reported Reaction Date of Last Stent Placement:: 10/2021 Past Psychological History: Bipolar, Depression, Panic Disorder Additional Psychological History / Comment(s): Pt resides alone in an apartment. He uses a walker to ambulate. He is disabled. He drives. Smoking Status: Current every day smoker Past Alcohol Use History: Occasional Additional Past Alcohol Use History / Comment(s): Pt started smoking in 1976 and is about a ppd smoker. He occasionally drinks alcohol-[employer]. Past Drug Use History: Marijuana Additional Drug Use History / Comment(s): USES EDIBLES-FOR PAIN RELIEF - Past Family History Brother(s) Family Medical History: Diabetes Mellitus Father Family Medical History: Cancer Additional Family Medical History / Comment(s): Father of throat cancer. Mother Additional Family Medical History / Comment(s): Mother of a ruptured brain aneurysm. Medications and Allergies Home Medications Medication Instructions Recorded Confirmed Type Emtricitabine/Tenofov Alafenam 1 tab PO DAILY 09/01/18 04/07/24 History [Descovy 200-25 mg Tablet] Levothyroxine Sodium [Synthroid] 25 mcg PO DAILY 09/01/18 04/07/24 History Citalopram Hydrobromide [CeleXA] 40 mg PO DAILY 03/31/19 04/07/24 History Baclofen [Lioresal] 20 mg PO QID 11/22/20 04/07/24 History Cetirizine HCl [Zyrtec] 10 mg PO DAILY 11/22/20 04/07/24 History Gabapentin 800 mg PO TID 11/22/20 04/07/24 History Morphine Sulfate Ir [MSIR] 15 mg PO DAILY 05/10/21 04/07/24 History Dolutegravir Sodium [Tivicay] 50 mg PO DAILY 08/14/21 04/07/24 History Ipratropium [place] 0.06%Nasal 2 spray EA NOSTRIL BID PRN 08/14/21 04/07/24 History [Atrovent Nasal 0.06%] Docusate Sodium [Dok] 100 mg PO HS PRN 10/23/21 04/07/24 History Phentermine HCl [Adipex-P] 37.5 mg PO DAILY 10/23/21 04/07/24 History Clopidogrel [Plavix] 75 mg PO DAILY tab 11/04/21 04/07/24 Rx Nitroglycerin Sl Tabs [Nitrostat] 0.4 mg SUBLINGUAL Q5M PRN tab 11/04/21 04/07/24 Rx Etravirine 200 mg PO BID 01/02/22 04/07/24 History Rivaroxaban [Xarelto] 20 mg PO DAILY 01/02/22 04/07/24 History Albuterol Inhaler [Ventolin Hfa 2 puff INHALATION RT-Q4H PRN 04/07/24 04/07/24 History Inhaler] Atorvastatin [Lipitor] 40 mg PO DAILY 04/07/24 04/07/24 History Clindamycin Phosphate 1% Swab 1 applic TOPICAL BID PRN 04/07/24 04/07/24 History Furosemide [Lasix] 40 mg PO BID 04/07/24 04/07/24 History L.acidoph,Paracasei, B.lactis 1 cap PO DAILY 04/07/24 04/07/24 History [Probiotic] Metoprolol Tartrate [Lopressor] 25 mg PO BID 04/07/24 04/07/24 History Morphine Sulfate ER [Ms Contin] 15 mg PO BID 04/07/24 04/07/24 History Multivitamins, Thera [Multivitamin 1 tab PO DAILY 04/07/24 04/07/24 History (formulary)] Mupirocin 2% Oint [Bactroban 2% 1 applic TOPICAL TID 04/07/24 04/07/24 History Oint] Prostate Therapy Supplement 1 tab PO DAILY 04/07/24 04/07/24 History Tolterodine ER [Detrol LA] 4 mg PO DAILY 04/07/24 04/07/24 History polyethylene glycoL 3350 [Miralax] 17 gm PO DAILY 04/07/24 04/07/24 History traZODone HCL [Desyrel] 100 mg PO HS 04/07/24 04/07/24 History Allergies Allergy/AdvReac Type Severity Reaction Status Date / Time azithromycin Allergy Rash/Hives Verified 04/07/24 11:07 [From Zithromax Z-Simone] levofloxacin [From Levaquin] Allergy Verified 04/07/24 11:07 Sulfa (Sulfonamide Allergy Rash/Hives Verified 04/07/24 11:07 Antibiotics) Physical Examination - Vital Signs Vital Signs: Vital Signs Temp Pulse Resp BP Pulse Ox FiO2 04/08/24 10:30 99.7 F H 129 H 28 H 89/61 96 04/08/24 10:15 130 H 28 H 89/61 96 04/08/24 10:00 124 H 28 H 85/56 95 04/08/24 09:45 128 H 28 H 85/56 97 04/08/24 09:30 135 H 28 H 96/60 98 04/08/24 09:15 117 H 28 H 83/63 04/08/24 09:00 117 H 28 H 98/70 04/08/24 08:45 112 H 28 H 79/62 100 04/08/24 08:30 112 H 28 H 88/56 92 L 04/08/24 08:15 109 H 28 H 99/55 94 L 04/08/24 08:00 113 H 28 H 83/45 91 L 04/08/24 07:45 123 H 28 H 158/96 91 L 04/08/24 07:30 99.2 F 118 H 28 H 66/50 92 L 04/08/24 07:15 102 H 28 H 106/72 04/08/24 07:00 98 28 H 86/47 04/08/24 06:45 102 H 28 H 73/58 04/08/24 06:30 100 28 H 72/55 95 04/08/24 06:15 101 H 28 H 96/59 96 04/08/24 06:08 60 04/08/24 06:00 101 H 24 100/52 96 04/08/24 05:45 98 24 107/48 96 04/08/24 05:30 105 H 24 97/61 97 04/08/24 05:15 101 H 24 81/58 97 04/08/24 05:00 105 H 24 101/57 95 04/08/24 04:45 104 H 24 83/54 96 04/08/24 04:30 105 H 24 108/72 96 04/08/24 04:15 104 H 24 101/55 96 04/08/24 04:02 60 04/08/24 04:00 99 F 103 H 24 97/60 97 60 04/08/24 03:45 96 24 103/57 96 04/08/24 03:30 102 H 24 96/51 96 04/08/24 03:15 94 24 82/61 96 04/08/24 03:00 98 24 86/55 94 L 04/08/24 02:45 103 H 24 80/56 93 L 04/08/24 02:30 100 24 80/56 93 L 04/08/24 02:15 101 H 24 80/60 93 L 04/08/24 02:00 98 24 85/56 92 L 04/08/24 01:45 100 24 104/74 94 L 04/08/24 01:30 95 24 104/74 94 L 04/08/24 01:15 98 24 104/74 95 04/08/24 00:45 94/65 04/08/24 00:30 94 24 84/63 04/08/24 00:15 96 24 86/64 94 L 04/08/24 00:12 95 24 86/64 94 L 04/08/24 00:00 99.1 F 101 H 24 89/65 94 L 60 04/07/24 23:45 100 24 92/62 93 L 04/07/24 23:40 60 04/07/24 23:30 101 H 24 90/67 93 L 04/07/24 23:15 100 24 78/57 92 L 04/07/24 23:00 100 24 79/56 92 L 04/07/24 22:45 98 24 81/65 92 L 04/07/24 22:30 93 24 78/60 91 L 04/07/24 22:15 90 24 90/63 90 L 04/07/24 22:00 95 24 82/59 89 L 04/07/24 21:45 93 24 80/62 90 L 04/07/24 21:30 94 24 79/58 91 L 04/07/24 21:15 89 24 78/62 92 L 04/07/24 21:00 93 24 89/71 91 L 04/07/24 20:45 94 24 96/74 92 L 04/07/24 20:30 92 24 75/54 91 L 04/07/24 20:15 95 24 97/69 90 L 04/07/24 20:00 99 F 93 24 73/57 90 L 60 04/07/24 19:56 50 04/07/24 19:45 93 24 80/57 90 L 04/07/24 19:30 93 24 83/60 91 L 04/07/24 19:15 95 24 93/68 90 L 04/07/24 19:00 95 24 83/65 91 L 04/07/24 18:45 95 24 83/65 90 L 04/07/24 18:30 96 24 84/63 91 L 04/07/24 18:15 98 24 83/64 92 L 04/07/24 18:00 98 24 79/64 91 L 04/07/24 17:45 96 24 82/65 90 L 04/07/24 17:30 100 24 79/66 90 L 04/07/24 17:15 98 24 79/64 94 L 04/07/24 17:00 98 24 107/79 91 L 04/07/24 16:45 99 24 93/73 91 L 04/07/24 16:30 98 24 90/71 92 L 04/07/24 16:15 96 24 92/72 93 L 04/07/24 16:00 98 24 95/77 93 L 60 04/07/24 15:45 98 24 98/77 93 L 04/07/24 15:36 50 04/07/24 15:30 95 24 99/76 93 L 04/07/24 15:15 98 24 95/75 92 L 04/07/24 15:00 94 5 L 92/73 93 L 04/07/24 14:45 94 6 L 99/73 93 L 04/07/24 14:30 98 7 L 96/76 93 L 04/07/24 14:15 98 4 L 103/75 93 L 04/07/24 14:00 99 4 L 99/77 93 L 04/07/24 13:45 96 10 L 105/82 92 L 04/07/24 13:30 98 7 L 104/79 92 L 04/07/24 13:15 96 16 105/77 89 L 04/07/24 13:00 96 16 100/80 92 L 04/07/24 12:45 99 16 101/81 92 L 04/07/24 12:30 100 12 104/82 92 L 04/07/24 12:15 100 14 107/81 92 L 04/07/24 12:00 99.6 F 98 9 L 108/77 92 L 50 04/07/24 11:45 99 16 99/76 92 L 04/07/24 11:30 96 16 102/80 93 L 04/07/24 11:15 99 10 L 101/78 90 L 50 04/07/24 11:00 99 14 107/80 94 L Intake and Output 04/07/24 04/08/24 04/08/24 22:59 06:59 14:59 Intake Total 376.788 6752.436 1738.626 Output Total 430 305 70 Balance -301.570 3135.436 1668.626 Intake: IV 165 1600 1125 0.9 40 Clevidipine Butyrate 25 125 1000 125 mg In Empty Bag 1 bag @ 1 MG/HR 2 mls/hr IV .Q24H [facility] Rx#:[id number] Dextrose 5% in Water 1, 1000 000 ml @ 999 mls/hr IV . Q1H1M ONE Rx#:[id number] Potassium Chloride 10 meq 600 In Water For Injection 1 100ml.bag @ 100 mls/hr IVPB Q1H [facility] Rx#: [id number] Intake, IV Titration 16 29.436 613.626 Amount Dextrose 5% in Water 1, 250 000 ml @ 125 mls/hr IV . Q8H [facility] Rx#:[id number] Midazolam HCl 50 mg In 1 Sodium Chloride 0.9% 40 ml @ 1 MG/HR 1 mls/hr IV .Q24H [facility] Rx#:[id number] Norepinephrine 4 mg In 16.360 29.436 212.626 Sodium Chloride 0.9% 250 ml @ 0.03 MCG/KG/MIN 10. 369 mls/hr IV .Q24H [facility] Rx#:[id number] Piperacillin-Tazobactam 3 25 .375 gm In Sodium Chloride 0.9% 100 ml @ 25 mls/hr IVPB Q8H [facility] Rx#: [id number] Potassium Chloride 10 meq 125 In Water For Injection 1 100ml.bag @ 100 mls/hr IVPB Q1H [facility] Rx#: [id number] Output: Urine 430 305 70 Other: Voiding Method Indwelling Catheter Indwelling Catheter Weight 91.4 kg ABP, PAP, CO, CI - Last 8 Hours Arterial Blood Pressure 94/54 Arterial Blood Pressure 103/61 Arterial Blood Pressure 76/48 Arterial Blood Pressure 102/65 Patient is a late middle-aged male, who is intubated, comatose with GCS of 3. Patient currently on norepinephrine 0.42 mcg/kg/min, vasopressin 0.04 units/min, neoone 0.1 mcg/kg/min. He was also on Versed 1 to 2 mg/h, which was turned off at 3 AM. He has received 1 mg of Versed at 8 AM and also Ativan 1 mg at 11:07 AM. This was given, because patient was having very prominence movement of the chest, and some concern was raised about seizure, although EEG did not reveal any seizure activity. It was felt this chest movement was related to hyperdynamic cardiac activity from cardiac arrest and from central mechanisms. Patient is deeply comatose, not responding to any stimuli. Patient is in tubated. Not on any sedation at this moment. On cranial nerve examination, pupils are dilated about 5 to 6 mm, fixed, nonreactive. Oculocephalics are absent. Corneal reflex is absent. There is no gag reflex, no cough reflex with suctioning. No obvious seizure-like activity noted. On muscle strength testing, patient does not respond to any noxious stimulus or deep sternal rub. Deep tendon reflexes absent, plantar is flat. Sensory to touch or pinprick are sternal rub did not elicit any response Cerebellar function cannot be assessed. Tone and bulk of muscles normal. Gait deferred.. On general examination, there is no murmur, S1-S2 audible. Chest is clear on consultation. Abdomen is soft nontender. No organomegaly. Results - Laboratory Findings CBC and BMP: 04/08/24 20:07 04/08/24 20:07 Abnormal Lab Findings: Abnormal Labs 11/13/24 11/13/24 11/13/24 17:41 17:49 17:49 WBC 20.3 H Neutrophils # 14.1 H Monocytes # 1.5 H ABG pH ABG pCO2 ABG pO2 ABG HCO3 ABG O2 Saturation Sodium Potassium 3.3 L Chloride 111 H Carbon Dioxide 17 L BUN 25 H Creatinine Glucose 126 H POC Glucose (mg/dL) 128 H Plasma Lactic Acid Aniceto Phosphorus Magnesium Delta Bilirubin AST 113 H ALT 66 H Ammonia Creatine Kinase 620 H Troponin I Total Protein Albumin Urine Protein Urine Ketones Urine Blood Urine RBC Urine WBC Urine Bacteria Urine Mucus Urine Opiates Screen Ur Amphetamines Screen 04/06/24 04/06/24 04/06/24 17:49 17:57 17:57 WBC Neutrophils # Monocytes # ABG pH ABG pCO2 ABG pO2 ABG HCO3 ABG O2 Saturation Sodium Potassium Chloride Carbon Dioxide BUN Creatinine Glucose POC Glucose (mg/dL) Plasma Lactic Acid Aniceto 11.0 H* Phosphorus Magnesium Delta Bilirubin AST ALT Ammonia 85 H Creatine Kinase Troponin I Total Protein Albumin Urine Protein 2+ H Urine Ketones 1+ H Urine Blood Large H Urine RBC 10 H Urine WBC 16 H Urine Bacteria Occasional H Urine Mucus Few H Urine Opiates Screen Detected H Ur Amphetamines Screen Detected H 04/06/24 04/06/24 04/07/24 18:02 20:54 05:31 WBC Neutrophils # Monocytes # ABG pH 6.97 L* 7.33 L ABG pCO2 75 H* ABG pO2 179 H 115 H ABG HCO3 17 L ABG O2 Saturation 98.3 H 98.8 H Sodium Potassium Chloride Carbon Dioxide BUN Creatinine Glucose POC Glucose (mg/dL) 205 H Plasma Lactic Acid Aniceto Phosphorus Magnesium Delta Bilirubin AST ALT Ammonia Creatine Kinase Troponin I Total Protein Albumin Urine Protein Urine Ketones Urine Blood Urine RBC Urine WBC Urine Bacteria Urine Mucus Urine Opiates Screen Ur Amphetamines Screen 04/07/24 04/07/24 04/07/24 05:53 05:53 17:20 WBC 16.6 H 17.0 H Neutrophils # 13.8 H Monocytes # 1.2 H ABG pH ABG pCO2 ABG pO2 ABG HCO3 ABG O2 Saturation Sodium 153 H Potassium Chloride 123 H Carbon Dioxide BUN 28 H Creatinine Glucose 101 H POC Glucose (mg/dL) Plasma Lactic Acid Aniceto Phosphorus Magnesium Delta Bilirubin AST ALT Ammonia Creatine Kinase Troponin I Total Protein Albumin Urine Protein Urine Ketones Urine Blood Urine RBC Urine WBC Urine Bacteria Urine Mucus Urine Opiates Screen Ur Amphetamines Screen 04/07/24 04/07/24 04/07/24 17:20 17:20 19:00 WBC Neutrophils # Monocytes # ABG pH ABG pCO2 ABG pO2 ABG HCO3 ABG O2 Saturation Sodium 162 H* Potassium Chloride 133 H* Carbon Dioxide BUN 24 H Creatinine Glucose POC Glucose (mg/dL) Plasma Lactic Acid Aniceto Phosphorus 2.2 L Magnesium 2.6 H Delta Bilirubin 0.4 H AST 122 H ALT 84 H Ammonia Creatine Kinase Troponin I 0.676 H* Total Protein Albumin Urine Protein Trace H Urine Ketones Urine Blood Moderate H Urine RBC Urine WBC Urine Bacteria Rare H Urine Mucus Urine Opiates Screen Ur Amphetamines Screen 04/07/24 04/08/24 04/08/24 21:15 04:24 04:24 WBC 17.6 H Neutrophils # 14.6 H Monocytes # ABG pH ABG pCO2 ABG pO2 ABG HCO3 ABG O2 Saturation Sodium 153 H 150 H Potassium 2.7 L* Chloride 127 H 122 H Carbon Dioxide 21 L 21 L BUN 26 H 28 H Creatinine 1.41 H 1.57 H Glucose 160 H 117 H POC Glucose (mg/dL) Plasma Lactic Acid Aniceto Phosphorus Magnesium 2.4 H Delta Bilirubin AST 99 H ALT 61 H Ammonia Creatine Kinase Troponin I Total Protein 5.5 L Albumin 3.1 L Urine Protein Urine Ketones Urine Blood Urine RBC Urine WBC Urine Bacteria Urine Mucus Urine Opiates Screen Ur Amphetamines Screen 04/08/24 05:50 WBC Neutrophils # Monocytes # ABG pH 7.29 L ABG pCO2 ABG pO2 66 L ABG HCO3 ABG O2 Saturation 93.0 L Sodium Potassium Chloride Carbon Dioxide BUN Creatinine Glucose POC Glucose (mg/dL) Plasma Lactic Acid Aniceto Phosphorus Magnesium Delta Bilirubin AST ALT Ammonia Creatine Kinase Troponin I Total Protein Albumin Urine Protein Urine Ketones Urine Blood Urine RBC Urine WBC Urine Bacteria Urine Mucus Urine Opiates Screen Ur Amphetamines Screen Assessment and Plan Assessment: * Unwitnessed, out of hospital, cardiac arrest with prolonged downtime. ROSC obtained 20 minutes after patient was found to have cardiac arrest. However patient was last seen normal was 5 hours prior to the time he was found in cardiac arrest. Patient has severe anoxic encephalopathy * Massive subdural hematoma left side, with subfalcine herniation and suspected earlier tonsillar herniation. * Probable brain * Acute respiratory failure due to cardiac arrest * HIV * Hypertension * COPD Plan: * Patient has no cortical or brainstem functions noted clinically. * Cold calorics were performed, which showed no evoked response on either side with cold or warm water. * EEG was performed. It was severely attenuated suppressed, with no clear-cut discernible brain waves noticed. Very low amplitude activity was seen, which likely was technical reasons. There was no response to photic stimulation, or any activation procedure. No epileptiform activity was seen. * CT head revealed massive left subdural hematoma, with mass effect, midline shift (24.45 mm), subfalcine herniation * Apnea test was considered, but per critical team, patient is extremely hemodynamically unstable, can develop another cardiac arrest. * Gift of life is also involved, awaiting final determination of cerebral . * Discussed with family members, ICU team multiple times. * Dr. Fernández will cover neurology service over the weekend. * Thank you for the consult. Time with Patient: Greater than 30
--- NOTE | 2024-04-09 02:35 | EEG ---
ELECTROENCEPHALOGRAM REPORT PREAMBLE: This is a 63-year-old male with cardiac arrest and acute subdural hematoma. EEG FINDINGS: This is a 21-channel digital EEG recorded with video component, utilizing 10/20 international system with referential and bipolar montages. The recording starts and continues with presence of very severely attenuated, low-amplitude, almost less than 5 microvolts activity in generalized distribution in both hemispheric regions. Background does not seem to be reactive to manual eye opening or closing. Photic driving response was not seen. Different stages of sleep were not seen. No focal or generalized epileptiform activity was seen. The patient did have activation procedures performed with nailbed pressure in all 4 extremities. No response or change in background was elicited. IMPRESSION: Very severely attenuated low-amplitude activity in bihemispheric region, consistent with severe anoxic encephalopathy. This EEG pertains very poor prognosis. No focal or generalized epileptiform activity was seen. MMANGELA / ALVARON: [id number] / MTDD
[2024-04-09 04:21] LABS: Glucose,Whole Blood 201 mg/dL (70-110)
[2024-04-09 04:29] LABS: HCT 33.4 % (39.0-53.0); Hypochromasia Slight; MCH 29.7 pg (25.0-35.0); MCHC 32.9 g/dL (31.0-37.0); MCV 90.3 fL (80.0-100.0); Platelet Count 114 k/uL (150-450); RDW 14.4 % (11.5-15.5); WBC 21.4 k/uL (3.8-10.6)
[2024-04-09 04:40] LABS: INR 2.2 (<1.2); Partial Thromboplastin Time 31.9 sec (22.0-30.0); Prothrombin Time 22.3 sec (10.0-12.5)
[2024-04-09 04:42] LABS: ALT 48 U/L (4-49); AST 92 U/L (17-59); African American GFR (CKD) 60 (>60 ml/min/1.73 sqM); Albumin 2.3 g/dL (3.5-5.0); Alkaline Phosphatase 65 U/L (38-126); Anion Gap 0 mmol/L; Bilirubin, Delta 0.5 mg/dL (0.0-0.2); Bilirubin,Unconjugated 0.6 mg/dL (0.0-1.1); Blood Urea Nitrogen 27 mg/dL (9-20); Calcium 7.8 mg/dL (8.4-10.2); Carbon Dioxide 28 mmol/L (22-30); Chloride 113 mmol/L (98-107); Glucose 216 mg/dL (74-99); Magnesium 1.5 mg/dL (1.6-2.3); Non-African American GFR(CKD) 52 (>60 ml/min/1.73 sqM); Phosphorus 2.3 mg/dL (2.5-4.5); Potassium 4.4 mmol/L (3.5-5.1); Sodium 141 mmol/L (137-145); Total Bilirubin 1.1 mg/dL (0.2-1.3); Total Protein 4.4 g/dL (6.3-8.2)
[2024-04-09 05:11] LABS: ABG Base Excess 4.3 mmol/L; ABG HCO3 28 mmol/L (21-25); ABG Oxygen Saturation 94.9 % (94-97); ABG PCO2 36 mmHg (35-45); ABG PH 7.49 (7.35-7.45); ABG PO2 60 mmHg (83-108); ABG TCO2 29 mmol/L (19-24); Allen Test Performed? Yes
[2024-04-09 05:44] LABS: INR 2.1 (<1.2); Partial Thromboplastin Time 28.3 sec (22.0-30.0); Prothrombin Time 20.9 sec (10.0-12.5)
[2024-04-09 05:47] LABS: Basophils # (A) 0.1 k/uL (0-0.2); Basophils % (A) 0 %; Eosinophils % (A) 0 %; HCT 40.6 % (39.0-53.0); HGB 13.2 gm/dL (13.0-17.5); Lymphocytes # (A) 0.5 k/uL (1.0-4.8); Lymphocytes % (A) 2 %; MCHC 32.6 g/dL (31.0-37.0); Monocytes # (A) 1.6 k/uL (0-1.0); Monocytes % (A) 7 %; Neutrophils # (A) 21.2 k/uL (1.3-7.7); Neutrophils % (A) 90 %; Platelet Count 145 k/uL (150-450); RBC 4.56 m/uL (4.30-5.90); RDW 14.5 % (11.5-15.5); WBC 23.5 k/uL (3.8-10.6)
[2024-04-09 06:06] LABS: Tear Drop Cells Present
[2024-04-09] MEDS ORDERED: Magnesium Replacement Protocol 1 EACH MISC MISCELLANE PRN (07:33)
[2024-04-09 07:53] LABS: Glucose,Whole Blood 236 mg/dL (70-110)
[2024-04-09] MEDS: MAGNESIUM SULFATE-D5W PMX 1 GM in DEXTROSE/WATER 1 100ML.BAG IVPB SCH (07:54)
--- NOTE | 2024-04-09 08:00 | XR ---
EXAMINATION TYPE: XR chest 1V portable DATE OF EXAM: 04/09/2024 5:13 AM COMPARISON: None. CLINICAL INDICATION: Male, 63 years old with history of copd/intubated, cultivating TECHNIQUE: XR chest 1V portable view(s) obtained. FINDINGS: The heart size is normal. The pulmonary vasculature is normal. Basilar infiltrates are present. Endotracheal tube tip is 6 cm above the [place]. Nasogastric tube transverses the thorax. Right centra l venous catheter tips in superior vena cava region IMPRESSION: 1. Bibasilar infiltrates increasing from comparison. Correlate for atelectasis and pneumonia. 2. Lines and catheters discussed above [facility], , 04/09/2024 7:58 AM
--- NOTE | 2024-04-09 10:04 | P.PN ---
Subjective Progress Note Date: 04/09/24 PROGRESS NOTE The patient is a 63-year-old male who presented following an unwitnessed cardiac arrest and was found to have a large subdural hematoma with herniation and was made DNR. He has been evaluated for gift of life. Cardiology consultation was requested because of hemodynamic instability prior to harvesting organs. The patient is acidotic. Prior to that apparently he has been stable. Reviewing his records he has a history of CAD has been seen by Dr. Solomon. Underwent cardiac catheterization in 2021 and had severe distal left main disease and chronically occluded RCA. He underwent stenting of the left main with Impella support, had a subsequent procedure to try to recanalize the RCA that was unsuccessful. At that time his left ventricle systolic function was preserved. No other history is available from the cardiac standpoint. The patient has been in sinus mechanism. He is acidotic, requiring vasopressors but his blood pressure was better with bicarb injections. There is no evidence of ventricular tachycardia. No other history could be obtained at this point. April 09: The patient is more stable hemodynamically, in sinus mechanism and less vasopressors and no significant arrhythmia. He is in sinus mechanism with PACs. His echocardiogram showed an ejection fraction of 40%. His urinary output has been stable. He has been evaluated for possible organ harvesting tomorrow. PHYSICAL EXAMINATION: Blood pressure 107/60 heart rate 90, intubated LUNGS: Clear to auscultation HEART: Regular rate and rhythm, S1, S2. No S3. Systolic ejection murmur ABDOMEN: Soft, no organomegaly EXTREMETIES: No edema LAB: Hemoglobin 13.2, INR 2.1, plasma lactic acid 3.1, potassium 4.4, BUN 27, creatinine 1.45 IMPRESSION: 1. Cardiac arrest with subdural hematoma 2. History of cardiac disease 3. Acute renal injury 4. History of HIV PLAN: Plan to proceed with gift of life and organ harvesting probably tomorrow. Objective - Vital Signs Vital signs: Vital Signs Temp 102.7 F H 04/09/24 09:15 Pulse 93 04/09/24 09:15 Resp 32 H 04/09/24 09:15 BP 117/80 04/09/24 08:00 Pulse Ox 91 L 04/09/24 09:15 FiO2 90 04/09/24 08:00 Intake & Output 04/08/24 04/09/24 04/09/24 18:59 06:59 18:59 Intake Total 4009.589 3490.953 956.084 Output Total 665 770 220 Balance 3344.589 2720.953 736.084 Weight 101.7 kg Intake: IV 1128 86 209 .9NS Pressure bag 3 36 9 Clevidipine Butyrate 25 125 mg In Empty Bag 1 bag @ 1 MG/HR 2 mls/hr IV .Q24H MICHELLE Rx#:[id number] Dextrose 5% in Water 1, 1000 000 ml @ 999 mls/hr IV . Q1H1M ONE Rx#:[id number] Magnesium Sulfate-D5w Pmx 200 1 gm In Dextrose/Water 1 100ml.bag @ 100 mls/hr IVPB Q1H MICHELLE Rx#: [id number] Potassium Chloride 10 meq 50 In Water For Injection 1 100ml.bag @ 100 mls/hr IVPB Q1H MICHELLE Rx#: [id number] Intake, IV Titration 2881.589 3404.953 747.084 Amount Dextrose 5% in Water 1, 500 1200 300 000 ml @ 100 mls/hr IV . [id number] MICHELLE with Sodium Bicarb (1 Meq/ml) 150 ml Rx#:[id number] Dextrose 5% in Water 1, 1250 125 000 ml @ 125 mls/hr IV . Q8H MICHELLE Rx#:[id number] Midazolam HCl 50 mg In 1 Sodium Chloride 0.9% 40 ml @ 1 MG/HR 1 mls/hr IV .Q24H MICHELLE Rx#:[id number] Midazolam HCl 50 mg In 1.6 Sodium Chloride 0.9% 40 ml @ 3 MG/HR 3 mls/hr IV .[id number] MICHELLE Rx#: [id number] Norepinephrine 4 mg In 375.478 Sodium Chloride 0.9% 250 ml @ 0.03 MCG/KG/MIN 10. 369 mls/hr IV .Q24H MICHELLE Rx#:[id number] Norepinephrine 8 mg In 205.422 98.541 Sodium Chloride 0.9% 250 ml @ 0.03 MCG/KG/MIN 5. 306 mls/hr IV .Q24H MICHELLE Rx#:[id number] Phenylephrine 40 mg In 254.000 361.430 72.084 Sodium Chloride 0.9% 250 ml @ 0.5 MCG/KG/MIN 17. 412 mls/hr IV .[id number] MICHELLE Rx#:[id number] Piperacillin-Tazobactam 3 125 100 .375 gm In Sodium Chloride 0.9% 100 ml @ 25 mls/hr IVPB Q8H MICHELLE Rx#: [id number] Potassium Chloride 10 meq 125 In Water For Injection 1 100ml.bag @ 100 mls/hr IVPB Q1H MICHELLE Rx#: [id number] Potassium Chloride 20 meq 100 In Water For Injection 1 100ml.bag @ 50 mls/hr IVPB Q2H MICHELLE Rx#: [id number] Sodium Chloride 0.9% 1, 1375 375 000 ml @ 125 mls/hr IV . Q8H MICHELLE Rx#:[id number] Vasopressin 20 unit In 44.089 44.982 Sodium Chloride 0.9% 50 ml @ 0.03 UNITS/MIN 4.59 mls/hr IV .[id number] MICHELLE Rx# :[id number] Output: Urine 665 770 220 Other: Voiding Method Indwelling Catheter Indwelling Catheter ABP, PAP, CO, CI - Last Documented Arterial Blood Pressure 107/63 - Labs CBC & Chem 7: 04/09/24 05:23 04/09/24 04:10 Labs: Abnormal Lab Results - Last 24 Hours (Table) 04/08/24 04/08/24 04/08/24 Range/Units 05:50 11:21 11:45 WBC (3.8-10.6) k/uL RBC (4.30-5.90) m/uL Hgb (13.0-17.5) gm/dL Hct (39.0-53.0) % MCHC (31.0-37.0) g/dL Plt Count (150-450) k/uL Neutrophils # (1.3-7.7) k/uL Lymphocytes # (1.0-4.8) k/uL Monocytes # (0-1.0) k/uL PT (10.0-12.5) sec INR (<1.2) APTT (22.0-30.0) sec D-Dimer (<0.60) mg/L FEU ABG pH 7.07 L* (7.35-7.45) ABG pCO2 76 H* (35-45) mmHg ABG pO2 56 L* (83-108) mmHg ABG HCO3 (21-25) mmol/L ABG Total CO2 (19-24) mmol/L ABG O2 Saturation 82.3 L (94-97) % Potassium 3.2 L (3.5-5.1) mmol/L Chloride 119 H (98-107) mmol/L Carbon Dioxide 19 L (22-30) mmol/L BUN 28 H (9-20) mg/dL Creatinine 1.79 H (0.66-1.25) mg/dL Glucose 221 H (74-99) mg/dL POC Glucose (mg/dL) 204 H (70-110) mg/dL Plasma Lactic Acid Aniceto (0.7-2.0) mmol/L Calcium (8.4-10.2) mg/dL Phosphorus 2.3 L (2.5-4.5) mg/dL Magnesium (1.6-2.3) mg/dL Delta Bilirubin 0.3 H (0.0-0.2) mg/dL AST 75 H (17-59) U/L ALT 51 H (4-49) U/L Total Protein 5.0 L (6.3-8.2) g/dL Albumin 2.7 L (3.5-5.0) g/dL 04/08/24 04/08/24 04/08/24 Range/Units 11:45 11:45 11:45 WBC 12.3 H (3.8-10.6) k/uL RBC (4.30-5.90) m/uL Hgb (13.0-17.5) gm/dL Hct (39.0-53.0) % MCHC 30.8 L (31.0-37.0) g/dL Plt Count (150-450) k/uL Neutrophils # (1.3-7.7) k/uL Lymphocytes # (1.0-4.8) k/uL Monocytes # (0-1.0) k/uL PT 14.2 H (10.0-12.5) sec INR 1.4 H (<1.2) APTT (22.0-30.0) sec D-Dimer 6.85 H (<0.60) mg/L FEU ABG pH (7.35-7.45) ABG pCO2 (35-45) mmHg ABG pO2 (83-108) mmHg ABG HCO3 (21-25) mmol/L ABG Total CO2 (19-24) mmol/L ABG O2 Saturation (94-97) % Potassium (3.5-5.1) mmol/L Chloride (98-107) mmol/L Carbon Dioxide (22-30) mmol/L BUN (9-20) mg/dL Creatinine (0.66-1.25) mg/dL Glucose (74-99) mg/dL POC Glucose (mg/dL) (70-110) mg/dL Plasma Lactic Acid Aniceto 2.7 H* (0.7-2.0) mmol/L Calcium (8.4-10.2) mg/dL Phosphorus (2.5-4.5) mg/dL Magnesium (1.6-2.3) mg/dL Delta Bilirubin (0.0-0.2) mg/dL AST (17-59) U/L ALT (4-49) U/L Total Protein (6.3-8.2) g/dL Albumin (3.5-5.0) g/dL 04/08/24 04/08/24 04/08/24 Range/Units 12:37 13:15 14:55 WBC (3.8-10.6) k/uL RBC (4.30-5.90) m/uL Hgb (13.0-17.5) gm/dL Hct (39.0-53.0) % MCHC (31.0-37.0) g/dL Plt Count (150-450) k/uL Neutrophils # (1.3-7.7) k/uL Lymphocytes # (1.0-4.8) k/uL Monocytes # (0-1.0) k/uL PT (10.0-12.5) sec INR (<1.2) APTT (22.0-30.0) sec D-Dimer (<0.60) mg/L FEU ABG pH 7.07 L* 7.23 L (7.35-7.45) ABG pCO2 76 H* 74 H* (35-45) mmHg ABG pO2 56 L* 59 L* (83-108) mmHg ABG HCO3 31 H (21-25) mmol/L ABG Total CO2 33 H (19-24) mmol/L ABG O2 Saturation 82.3 L 89.4 L (94-97) % Potassium (3.5-5.1) mmol/L Chloride (98-107) mmol/L Carbon Dioxide (22-30) mmol/L BUN (9-20) mg/dL Creatinine (0.66-1.25) mg/dL Glucose (74-99) mg/dL POC Glucose (mg/dL) (70-110) mg/dL Plasma Lactic Acid Aniceto 2.8 H* (0.7-2.0) mmol/L Calcium (8.4-10.2) mg/dL Phosphorus (2.5-4.5) mg/dL Magnesium (1.6-2.3) mg/dL Delta Bilirubin (0.0-0.2) mg/dL AST (17-59) U/L ALT (4-49) U/L Total Protein (6.3-8.2) g/dL Albumin (3.5-5.0) g/dL 04/08/24 04/08/24 04/08/24 Range/Units 17:21 17:52 18:15 WBC (3.8-10.6) k/uL RBC (4.30-5.90) m/uL Hgb (13.0-17.5) gm/dL Hct (39.0-53.0) % MCHC (31.0-37.0) g/dL Plt Count (150-450) k/uL Neutrophils # (1.3-7.7) k/uL Lymphocytes # (1.0-4.8) k/uL Monocytes # (0-1.0) k/uL PT (10.0-12.5) sec INR (<1.2) APTT (22.0-30.0) sec D-Dimer (<0.60) mg/L FEU ABG pH (7.35-7.45) ABG pCO2 (35-45) mmHg ABG pO2 (83-108) mmHg ABG HCO3 (21-25) mmol/L ABG Total CO2 (19-24) mmol/L ABG O2 Saturation (94-97) % Potassium (3.5-5.1) mmol/L Chloride (98-107) mmol/L Carbon Dioxide (22-30) mmol/L BUN (9-20) mg/dL Creatinine (0.66-1.25) mg/dL Glucose (74-99) mg/dL POC Glucose (mg/dL) 139 H 138 H (70-110) mg/dL Plasma Lactic Acid Aniceto 3.0 H* (0.7-2.0) mmol/L Calcium (8.4-10.2) mg/dL Phosphorus (2.5-4.5) mg/dL Magnesium (1.6-2.3) mg/dL Delta Bilirubin (0.0-0.2) mg/dL AST (17-59) U/L ALT (4-49) U/L Total Protein (6.3-8.2) g/dL Albumin (3.5-5.0) g/dL 04/08/24 04/08/24 04/08/24 Range/Units 20:07 20:07 20:07 WBC 20.4 H (3.8-10.6) k/uL RBC (4.30-5.90) m/uL Hgb (13.0-17.5) gm/dL Hct (39.0-53.0) % MCHC (31.0-37.0) g/dL Plt Count (150-450) k/uL Neutrophils # (1.3-7.7) k/uL Lymphocytes # (1.0-4.8) k/uL Monocytes # (0-1.0) k/uL PT 16.4 H (10.0-12.5) sec INR 1.6 H (<1.2) APTT (22.0-30.0) sec D-Dimer (<0.60) mg/L FEU ABG pH (7.35-7.45) ABG pCO2 (35-45) mmHg ABG pO2 (83-108) mmHg ABG HCO3 (21-25) mmol/L ABG Total CO2 (19-24) mmol/L ABG O2 Saturation (94-97) % Potassium (3.5-5.1) mmol/L Chloride 113 H (98-107) mmol/L Carbon Dioxide (22-30) mmol/L BUN 28 H (9-20) mg/dL Creatinine 1.63 H (0.66-1.25) mg/dL Glucose 168 H (74-99) mg/dL POC Glucose (mg/dL) (70-110) mg/dL Plasma Lactic Acid Aniceto (0.7-2.0) mmol/L Calcium 8.1 L (8.4-10.2) mg/dL Phosphorus 1.6 L (2.5-4.5) mg/dL Magnesium (1.6-2.3) mg/dL Delta Bilirubin 0.5 H (0.0-0.2) mg/dL AST 82 H (17-59) U/L ALT (4-49) U/L Total Protein 4.6 L (6.3-8.2) g/dL Albumin 2.4 L (3.5-5.0) g/dL 04/08/24 04/08/24 04/08/24 Range/Units 20:07 21:04 21:12 WBC (3.8-10.6) k/uL RBC (4.30-5.90) m/uL Hgb (13.0-17.5) gm/dL Hct (39.0-53.0) % MCHC (31.0-37.0) g/dL Plt Count (150-450) k/uL Neutrophils # (1.3-7.7) k/uL Lymphocytes # (1.0-4.8) k/uL Monocytes # (0-1.0) k/uL PT (10.0-12.5) sec INR (<1.2) APTT (22.0-30.0) sec D-Dimer (<0.60) mg/L FEU ABG pH (7.35-7.45) ABG pCO2 (35-45) mmHg ABG pO2 151 H (83-108) mmHg ABG HCO3 26 H (21-25) mmol/L ABG Total CO2 27 H (19-24) mmol/L ABG O2 Saturation 100.0 H (94-97) % Potassium (3.5-5.1) mmol/L Chloride (98-107) mmol/L Carbon Dioxide (22-30) mmol/L BUN (9-20) mg/dL Creatinine (0.66-1.25) mg/dL Glucose (74-99) mg/dL POC Glucose (mg/dL) 198 H (70-110) mg/dL Plasma Lactic Acid Aniceto 3.5 H* (0.7-2.0) mmol/L Calcium (8.4-10.2) mg/dL Phosphorus (2.5-4.5) mg/dL Magnesium (1.6-2.3) mg/dL Delta Bilirubin (0.0-0.2) mg/dL AST (17-59) U/L ALT (4-49) U/L Total Protein (6.3-8.2) g/dL Albumin (3.5-5.0) g/dL 04/08/24 04/08/24 04/08/24 Range/Units 21:20 23:02 23:44 WBC (3.8-10.6) k/uL RBC (4.30-5.90) m/uL Hgb (13.0-17.5) gm/dL Hct (39.0-53.0) % MCHC (31.0-37.0) g/dL Plt Count (150-450) k/uL Neutrophils # (1.3-7.7) k/uL Lymphocytes # (1.0-4.8) k/uL Monocytes # (0-1.0) k/uL PT (10.0-12.5) sec INR (<1.2) APTT (22.0-30.0) sec D-Dimer (<0.60) mg/L FEU ABG pH (7.35-7.45) ABG pCO2 (35-45) mmHg ABG pO2 (83-108) mmHg ABG HCO3 (21-25) mmol/L ABG Total CO2 (19-24) mmol/L ABG O2 Saturation (94-97) % Potassium (3.5-5.1) mmol/L Chloride (98-107) mmol/L Carbon Dioxide (22-30) mmol/L BUN (9-20) mg/dL Creatinine (0.66-1.25) mg/dL Glucose (74-99) mg/dL POC Glucose (mg/dL) 189 H (70-110) mg/dL Plasma Lactic Acid Aniceto 6.4 H* 5.9 H* (0.7-2.0) mmol/L Calcium (8.4-10.2) mg/dL Phosphorus (2.5-4.5) mg/dL Magnesium (1.6-2.3) mg/dL Delta Bilirubin (0.0-0.2) mg/dL AST (17-59) U/L ALT (4-49) U/L Total Protein (6.3-8.2) g/dL Albumin (3.5-5.0) g/dL 04/09/24 04/09/24 04/09/24 Range/Units 00:02 04:10 04:10 WBC 21.4 H (3.8-10.6) k/uL RBC 3.70 L (4.30-5.90) m/uL Hgb 11.0 L D (13.0-17.5) gm/dL Hct 33.4 L (39.0-53.0) % MCHC (31.0-37.0) g/dL Plt Count 114 L (150-450) k/uL Neutrophils # (1.3-7.7) k/uL Lymphocytes # (1.0-4.8) k/uL Monocytes # (0-1.0) k/uL PT 22.3 H (10.0-12.5) sec INR 2.2 H (<1.2) APTT 31.9 H (22.0-30.0) sec D-Dimer (<0.60) mg/L FEU ABG pH (7.35-7.45) ABG pCO2 (35-45) mmHg ABG pO2 (83-108) mmHg ABG HCO3 (21-25) mmol/L ABG Total CO2 (19-24) mmol/L ABG O2 Saturation (94-97) % Potassium (3.5-5.1) mmol/L Chloride (98-107) mmol/L Carbon Dioxide (22-30) mmol/L BUN (9-20) mg/dL Creatinine (0.66-1.25) mg/dL Glucose (74-99) mg/dL POC Glucose (mg/dL) 226 H (70-110) mg/dL Plasma Lactic Acid Aniceto (0.7-2.0) mmol/L Calcium (8.4-10.2) mg/dL Phosphorus (2.5-4.5) mg/dL Magnesium (1.6-2.3) mg/dL Delta Bilirubin (0.0-0.2) mg/dL AST (17-59) U/L ALT (4-49) U/L Total Protein (6.3-8.2) g/dL Albumin (3.5-5.0) g/dL 04/09/24 04/09/24 04/09/24 Range/Units 04:10 04:10 04:15 WBC (3.8-10.6) k/uL RBC (4.30-5.90) m/uL Hgb (13.0-17.5) gm/dL Hct (39.0-53.0) % MCHC (31.0-37.0) g/dL Plt Count (150-450) k/uL Neutrophils # (1.3-7.7) k/uL Lymphocytes # (1.0-4.8) k/uL Monocytes # (0-1.0) k/uL PT (10.0-12.5) sec INR (<1.2) APTT (22.0-30.0) sec D-Dimer (<0.60) mg/L FEU ABG pH (7.35-7.45) ABG pCO2 (35-45) mmHg ABG pO2 (83-108) mmHg ABG HCO3 (21-25) mmol/L ABG Total CO2 (19-24) mmol/L ABG O2 Saturation (94-97) % Potassium (3.5-5.1) mmol/L Chloride 113 H (98-107) mmol/L Carbon Dioxide (22-30) mmol/L BUN 27 H (9-20) mg/dL Creatinine 1.45 H (0.66-1.25) mg/dL Glucose 216 H (74-99) mg/dL POC Glucose (mg/dL) 201 H (70-110) mg/dL Plasma Lactic Acid Aniceto 2.5 H* (0.7-2.0) mmol/L Calcium 7.8 L (8.4-10.2) mg/dL Phosphorus 2.3 L (2.5-4.5) mg/dL Magnesium 1.5 L (1.6-2.3) mg/dL Delta Bilirubin 0.5 H (0.0-0.2) mg/dL AST 92 H (17-59) U/L ALT (4-49) U/L Total Protein 4.4 L (6.3-8.2) g/dL Albumin 2.3 L (3.5-5.0) g/dL 04/09/24 04/09/24 04/09/24 Range/Units 05:10 05:23 05:23 WBC 23.5 H (3.8-10.6) k/uL RBC (4.30-5.90) m/uL Hgb (13.0-17.5) gm/dL Hct (39.0-53.0) % MCHC (31.0-37.0) g/dL Plt Count 145 L (150-450) k/uL Neutrophils # 21.2 H (1.3-7.7) k/uL Lymphocytes # 0.5 L (1.0-4.8) k/uL Monocytes # 1.6 H (0-1.0) k/uL PT 20.9 H (10.0-12.5) sec INR 2.1 H (<1.2) APTT (22.0-30.0) sec D-Dimer (<0.60) mg/L FEU ABG pH 7.49 H (7.35-7.45) ABG pCO2 (35-45) mmHg ABG pO2 60 L (83-108) mmHg ABG HCO3 28 H (21-25) mmol/L ABG Total CO2 29 H (19-24) mmol/L ABG O2 Saturation (94-97) % Potassium (3.5-5.1) mmol/L Chloride (98-107) mmol/L Carbon Dioxide (22-30) mmol/L BUN (9-20) mg/dL Creatinine (0.66-1.25) mg/dL Glucose (74-99) mg/dL POC Glucose (mg/dL) (70-110) mg/dL Plasma Lactic Acid Aniceto (0.7-2.0) mmol/L Calcium (8.4-10.2) mg/dL Phosphorus (2.5-4.5) mg/dL Magnesium (1.6-2.3) mg/dL Delta Bilirubin (0.0-0.2) mg/dL AST (17-59) U/L ALT (4-49) U/L Total Protein (6.3-8.2) g/dL Albumin (3.5-5.0) g/dL 04/09/24 04/09/24 Range/Units 07:51 09:08 WBC (3.8-10.6) k/uL RBC (4.30-5.90) m/uL Hgb (13.0-17.5) gm/dL Hct (39.0-53.0) % MCHC (31.0-37.0) g/dL Plt Count (150-450) k/uL Neutrophils # (1.3-7.7) k/uL Lymphocytes # (1.0-4.8) k/uL Monocytes # (0-1.0) k/uL PT (10.0-12.5) sec INR (<1.2) APTT (22.0-30.0) sec D-Dimer (<0.60) mg/L FEU ABG pH (7.35-7.45) ABG pCO2 (35-45) mmHg ABG pO2 (83-108) mmHg ABG HCO3 (21-25) mmol/L ABG Total CO2 (19-24) mmol/L ABG O2 Saturation (94-97) % Potassium (3.5-5.1) mmol/L Chloride (98-107) mmol/L Carbon Dioxide (22-30) mmol/L BUN (9-20) mg/dL Creatinine (0.66-1.25) mg/dL Glucose (74-99) mg/dL POC Glucose (mg/dL) 236 H (70-110) mg/dL Plasma Lactic Acid Aniceto 3.1 H* (0.7-2.0) mmol/L Calcium (8.4-10.2) mg/dL Phosphorus (2.5-4.5) mg/dL Magnesium (1.6-2.3) mg/dL Delta Bilirubin (0.0-0.2) mg/dL AST (17-59) U/L ALT (4-49) U/L Total Protein (6.3-8.2) g/dL Albumin (3.5-5.0) g/dL
--- NOTE | 2024-04-09 12:16 | P.PN ---
Subjective Progress Note Date: 04/09/24 Principal diagnosis: Cardiac arrest This is a 63-year-old white male with history of multiple medical problems including COPD, HIV, coronary artery disease, patient presented to the ER with cardiac arrest. His neighbor saw the patient around noontime, and he was not acting normal. Around 5 PM, the neighbor went into the house to check on the patient, and the patient was found unresponsive down on the floor. CPR was initiated and EMS was brought in. Patient did receive Narcan, received CPR for asystole, patient had 2 rounds of CPR and gave 2 epinephrines. Patient went into PEA and then to normal sinus rhythm. Patient was brought into the ER intubated, and apparently he had a prolonged downtime. CT of the brain showed a large left acute subdural hemorrhage with subfalcine herniation, and suspected earlier tonsillar herniation. Apparently the ER physician discussed his condition with family who recommended DNR CODE STATUS and willing to proceed with comfort care measures once more family members could make it back to town. Apparently has a sister that is traveling from out of state to arrive sometime later today. Patient was made DNR brought into the ICU, at 1 point the patient developed hypertension placed on Cleviprex, but later on developed hypotension required short brief course of norepinephrine but presently he is off pressors and off blood pressure medications. To be hemodynamically stable during my evaluation in the ICU. Patient is now on assist-control rate of 20 tidal volume 450 FiO2 60% PEEP of 5 ABG showed a pO2 of 115 pCO2 44 pH of 7.33 hence his rate was increased to 24, his FiO2 cut down to 50%, and kept otherwise on the same ventilator settings. WBC count this morning is 16.6 hemoglobin 14.1 sodium is high at 153 hence his IV fluid to be changed to D5W and his BUN is 28 creatinine 1.04 patient is being evaluated by [facility] for possible organ donation. Patient was seen today on 04/08/2024, patient remains in the, intubated and mechanically ventilated. Patient is being being evaluated by the [facility] team, undergoing further workup before salvaging any organs for transplantation by the [facility] team. Patient remains on assist-control rate of 24 tidal volume 450 FiO2 60% and PEEP of 5 ABG showed a pO2 of 66 pCO2 45 pH of 7.29 hence his rate was increased to 28, FiO2 increased to 100% and PEEP increased to 10. Patient was on Versed drip for intermittent episodes of myoclonic jerks and tremors recommended Ativan however Ativan did not seem to hold him well, recommended that he goes back on Versed. Patient is developing hypotension requiring norepinephrine and vasopressin. He is getting maximal on both, if not improved patient will be given more fluid boluses, may even add dobutamine. However considering the patient is having ectopic beats I believe dobutamine will make him more prone to tachycardia. May consider Bal-Synephrine if necessary to replace norepinephrine. Hoping will control his tachycardia better this way overall the patient has futile prognosis, but we are maintaining the patient at this point mostly for [facility] team and hopefully get his organ salvage in the next 24 hours. Patient to be seen by neurology, EEG was done today, clinically the patient is not considered brain WBC count is 17.6 hemoglobin 14.9 sodium is 116 has the patient remains on D5W trying to correct his hypernatremia BUN is 28 creatinine 1.57. Fluid balance is positive almost 2 L in the last 24 hours Patient was today on 04/09/2024, remains in the ICU, remains intubated and mec hanically ventilated, much better today compared to yesterday nonetheless he still requiring high FiO2 of 90% with a PEEP of 8 still requiring pressors in the form of vasopressin and Bal-Synephrine heart rate seems to be better controlled today compared to yesterday. Patient is developing a picture of metabolic and respiratory alkalosis hence sodium bicarb this few infusion was discontinued. Patient is on 85% FiO2 with tidal volume of 550 rate of 32 and a PEEP of 8 showed a pO2 of 60 pCO2 36 pH of 7.49. Remains on Solu-Cortef at 100 mg IV push every 8 hours Bal-Synephrine is 0.1 mcg/kg/min vasopressin 0.03 units/min and he is on IV fluid at 125 cc/h. Sodium bicarb has been discontinued WBC count is 23.5 hemoglobin 13.2 lactic acid today is 3.1. Objective - Vital Signs Vital signs: Vital Signs Temp 102.7 F H 04/09/24 09:15 Pulse 90 04/09/24 11:15 Resp 32 H 04/09/24 11:15 BP 117/80 04/09/24 08:00 Pulse Ox 93 L 11/16/24 11:15 FiO2 90 04/09/24 11:09 Intake & Output 04/08/24 04/09/24 04/09/24 18:59 06:59 18:59 Intake Total 4009.589 3490.953 1318.731 Output Total 665 770 330 Balance 3344.589 2720.953 988.731 Weight 101.7 kg Intake: IV 1128 86 215 .9NS Pressure bag 3 36 15 Clevidipine Butyrate 25 125 mg In Empty Bag 1 bag @ 1 MG/HR 2 mls/hr IV .Q24H MICHELLE Rx#:[id number] Dextrose 5% in Water 1, 1000 000 ml @ 999 mls/hr IV . Q1H1M ONE Rx#:[id number] Magnesium Sulfate-D5w Pmx 200 1 gm In Dextrose/Water 1 100ml.bag @ 100 mls/hr IVPB Q1H MICHELLE Rx#: [id number] Potassium Chloride 10 meq 50 In Water For Injection 1 100ml.bag @ 100 mls/hr IVPB Q1H MICHELLE Rx#: [id number] Intake, IV Titration 2881.589 3404.953 1103.731 Amount Dextrose 5% in Water 1, 500 1200 300 000 ml @ 100 mls/hr IV . [id number] MICHELLE with Sodium Bicarb (1 Meq/ml) 150 ml Rx#:[id number] Dextrose 5% in Water 1, 1250 125 000 ml @ 125 mls/hr IV . Q8H MICHELLE Rx#:[id number] Midazolam HCl 50 mg In 1 Sodium Chloride 0.9% 40 ml @ 1 MG/HR 1 mls/hr IV .Q24H MICHELLE Rx#:[id number] Midazolam HCl 50 mg In 1.6 Sodium Chloride 0.9% 40 ml @ 3 MG/HR 3 mls/hr IV .[id number] MICHELLE Rx#: [id number] Norepinephrine 4 mg In 375.478 Sodium Chloride 0.9% 250 ml @ 0.03 MCG/KG/MIN 10. 369 mls/hr IV .Q24H MICHELLE Rx#:[id number] Norepinephrine 8 mg In 205.422 98.541 Sodium Chloride 0.9% 250 ml @ 0.03 MCG/KG/MIN 5. 306 mls/hr IV .Q24H MICHELLE Rx#:[id number] Phenylephrine 40 mg In 254.000 361.430 128.731 Sodium Chloride 0.9% 250 ml @ 0.5 MCG/KG/MIN 17. 412 mls/hr IV .[id number] MICHELLE Rx#:[id number] Piperacillin-Tazobactam 3 125 100 50 .375 gm In Sodium Chloride 0.9% 100 ml @ 25 mls/hr IVPB Q8H MICHELLE Rx#: [id number] Potassium Chloride 10 meq 125 In Water For Injection 1 100ml.bag @ 100 mls/hr IVPB Q1H MICHELLE Rx#: [id number] Potassium Chloride 20 meq 100 In Water For Injection 1 100ml.bag @ 50 mls/hr IVPB Q2H MICHELLE Rx#: [id number] Sodium Chloride 0.9% 1, 1375 625 000 ml @ 125 mls/hr IV . Q8H MICHELLE Rx#:[id number] Vasopressin 20 unit In 44.089 44.982 Sodium Chloride 0.9% 50 ml @ 0.03 UNITS/MIN 4.59 mls/hr IV .[id number] MICHELLE Rx# :[id number] Output: Urine 665 770 330 Other: Voiding Method Indwelling Catheter Indwelling Catheter ABP, PAP, CO, CI - Last Documented Arterial Blood Pressure 112/66 - Exam General: Revealed 63-year-old white male intubated mechanically ventilated, unresponsive to any stimuli. Skin: Skin is warm and dry and no rashes or lesions are noted. Eye: Dilated and unreactive Ears, nose, mouth and throat: There are moist mucous membranes and no oral lesions. Endotracheal tube and orogastric tube are intact Neck: The neck is supple, there is no tenderness or JVD. Cardiovascular: There is a regular rate and rhythm. No murmur, rub or gallop is appreciated. Respiratory: Clear bilaterally no crackles rhonchi or wheezes Gastrointestinal: Soft nontender no rebound no guarding Musculoskeletal: No deformities, could not assess range of motion Neurological: Patient has no brainstem reflexes patient is comatose, apneic once disconnected from mechanical ventilation patient has negative corneal reflex negative caloric reflex no gag reflex, patient is brain- and papers were filled out documenting the findings Psychiatric: Could not assess - Labs CBC & Chem 7: 04/09/24 05:23 04/09/24 04:10 Labs: Abnormal Lab Results - Last 24 Hours (Table) 04/08/24 04/08/24 04/08/24 Range/Units 05:50 11:45 11:45 WBC 12.3 H (3.8-10.6) k/uL RBC (4.30-5.90) m/uL Hgb (13.0-17.5) gm/dL Hct (39.0-53.0) % MCHC 30.8 L (31.0-37.0) g/dL Plt Count (150-450) k/uL Neutrophils # (1.3-7.7) k/uL Lymphocytes # (1.0-4.8) k/uL Monocytes # (0-1.0) k/uL PT (10.0-12.5) sec INR (<1.2) APTT (22.0-30.0) sec D-Dimer (<0.60) mg/L FEU ABG pH 7.07 L* (7.35-7.45) ABG pCO2 76 H* (35-45) mmHg ABG pO2 56 L* (83-108) mmHg ABG HCO3 (21-25) mmol/L ABG Total CO2 (19-24) mmol/L ABG O2 Saturation 82.3 L (94-97) % Potassium 3.2 L (3.5-5.1) mmol/L Chloride 119 H (98-107) mmol/L Carbon Dioxide 19 L (22-30) mmol/L BUN 28 H (9-20) mg/dL Creatinine 1.79 H (0.66-1.25) mg/dL Glucose 221 H (74-99) mg/dL POC Glucose (mg/dL) (70-110) mg/dL Plasma Lactic Acid Aniceto (0.7-2.0) mmol/L Calcium (8.4-10.2) mg/dL Phosphorus 2.3 L (2.5-4.5) mg/dL Magnesium (1.6-2.3) mg/dL Delta Bilirubin 0.3 H (0.0-0.2) mg/dL AST 75 H (17-59) U/L ALT 51 H (4-49) U/L Total Protein 5.0 L (6.3-8.2) g/dL Albumin 2.7 L (3.5-5.0) g/dL 04/08/24 04/08/24 04/08/24 Range/Units 11:45 11:45 12:37 WBC (3.8-10.6) k/uL RBC (4.30-5.90) m/uL Hgb (13.0-17.5) gm/dL Hct (39.0-53.0) % MCHC (31.0-37.0) g/dL Plt Count (150-450) k/uL Neutrophils # (1.3-7.7) k/uL Lymphocytes # (1.0-4.8) k/uL Monocytes # (0-1.0) k/uL PT 14.2 H (10.0-12.5) sec INR 1.4 H (<1.2) APTT (22.0-30.0) sec D-Dimer 6.85 H (<0.60) mg/L FEU ABG pH 7.07 L* (7.35-7.45) ABG pCO2 76 H* (35-45) mmHg ABG pO2 56 L* (83-108) mmHg ABG HCO3 (21-25) mmol/L ABG Total CO2 (19-24) mmol/L ABG O2 Saturation 82.3 L (94-97) % Potassium (3.5-5.1) mmol/L Chloride (98-107) mmol/L Carbon Dioxide (22-30) mmol/L BUN (9-20) mg/dL Creatinine (0.66-1.25) mg/dL Glucose (74-99) mg/dL POC Glucose (mg/dL) (70-110) mg/dL Plasma Lactic Acid Aniceto 2.7 H* (0.7-2.0) mmol/L Calcium (8.4-10.2) mg/dL Phosphorus (2.5-4.5) mg/dL Magnesium (1.6-2.3) mg/dL Delta Bilirubin (0.0-0.2) mg/dL AST (17-59) U/L ALT (4-49) U/L Total Protein (6.3-8.2) g/dL Albumin (3.5-5.0) g/dL 04/08/24 04/08/24 04/08/24 Range/Units 13:15 14:55 17:21 WBC (3.8-10.6) k/uL RBC (4.30-5.90) m/uL Hgb (13.0-17.5) gm/dL Hct (39.0-53.0) % MCHC (31.0-37.0) g/dL Plt Count (150-450) k/uL Neutrophils # (1.3-7.7) k/uL Lymphocytes # (1.0-4.8) k/uL Monocytes # (0-1.0) k/uL PT (10.0-12.5) sec INR (<1.2) APTT (22.0-30.0) sec D-Dimer (<0.60) mg/L FEU ABG pH 7.23 L (7.35-7.45) ABG pCO2 74 H* (35-45) mmHg ABG pO2 59 L* (83-108) mmHg ABG HCO3 31 H (21-25) mmol/L ABG Total CO2 33 H (19-24) mmol/L ABG O2 Saturation 89.4 L (94-97) % Potassium (3.5-5.1) mmol/L Chloride (98-107) mmol/L Carbon Dioxide (22-30) mmol/L BUN (9-20) mg/dL Creatinine (0.66-1.25) mg/dL Glucose (74-99) mg/dL POC Glucose (mg/dL) 139 H (70-110) mg/dL Plasma Lactic Acid Aniceto 2.8 H* (0.7-2.0) mmol/L Calcium (8.4-10.2) mg/dL Phosphorus (2.5-4.5) mg/dL Magnesium (1.6-2.3) mg/dL Delta Bilirubin (0.0-0.2) mg/dL AST (17-59) U/L ALT (4-49) U/L Total Protein (6.3-8.2) g/dL Albumin (3.5-5.0) g/dL 04/08/24 04/08/24 04/08/24 Range/Units 17:52 18:15 20:07 WBC 20.4 H (3.8-10.6) k/uL RBC (4.30-5.90) m/uL Hgb (13.0-17.5) gm/dL Hct (39.0-53.0) % MCHC (31.0-37.0) g/dL Plt Count (150-450) k/uL Neutrophils # (1.3-7.7) k/uL Lymphocytes # (1.0-4.8) k/uL Monocytes # (0-1.0) k/uL PT (10.0-12.5) sec INR (<1.2) APTT (22.0-30.0) sec D-Dimer (<0.60) mg/L FEU ABG pH (7.35-7.45) ABG pCO2 (35-45) mmHg ABG pO2 (83-108) mmHg ABG HCO3 (21-25) mmol/L ABG Total CO2 (19-24) mmol/L ABG O2 Saturation (94-97) % Potassium (3.5-5.1) mmol/L Chloride (98-107) mmol/L Carbon Dioxide (22-30) mmol/L BUN (9-20) mg/dL Creatinine (0.66-1.25) mg/dL Glucose (74-99) mg/dL POC Glucose (mg/dL) 138 H (70-110) mg/dL Plasma Lactic Acid Aniceto 3.0 H* (0.7-2.0) mmol/L Calcium (8.4-10.2) mg/dL Phosphorus (2.5-4.5) mg/dL Magnesium (1.6-2.3) mg/dL Delta Bilirubin (0.0-0.2) mg/dL AST (17-59) U/L ALT (4-49) U/L Total Protein (6.3-8.2) g/dL Albumin (3.5-5.0) g/dL 04/08/24 04/08/24 04/08/24 Range/Units 20:07 20:07 20:07 WBC (3.8-10.6) k/uL RBC (4.30-5.90) m/uL Hgb (13.0-17.5) gm/dL Hct (39.0-53.0) % MCHC (31.0-37.0) g/dL Plt Count (150-450) k/uL Neutrophils # (1.3-7.7) k/uL Lymphocytes # (1.0-4.8) k/uL Monocytes # (0-1.0) k/uL PT 16.4 H (10.0-12.5) sec INR 1.6 H (<1.2) APTT (22.0-30.0) sec D-Dimer (<0.60) mg/L FEU ABG pH (7.35-7.45) ABG pCO2 (35-45) mmHg ABG pO2 (83-108) mmHg ABG HCO3 (21-25) mmol/L ABG Total CO2 (19-24) mmol/L ABG O2 Saturation (94-97) % Potassium (3.5-5.1) mmol/L Chloride 113 H (98-107) mmol/L Carbon Dioxide (22-30) mmol/L BUN 28 H (9-20) mg/dL Creatinine 1.63 H (0.66-1.25) mg/dL Glucose 168 H (74-99) mg/dL POC Glucose (mg/dL) (70-110) mg/dL Plasma Lactic Acid Aniceto 3.5 H* (0.7-2.0) mmol/L Calcium 8.1 L (8.4-10.2) mg/dL Phosphorus 1.6 L (2.5-4.5) mg/dL Magnesium (1.6-2.3) mg/dL Delta Bilirubin 0.5 H (0.0-0.2) mg/dL AST 82 H (17-59) U/L ALT (4-49) U/L Total Protein 4.6 L (6.3-8.2) g/dL Albumin 2.4 L (3.5-5.0) g/dL 04/08/24 04/08/24 04/08/24 Range/Units 21:04 21:12 21:20 WBC (3.8-10.6) k/uL RBC (4.30-5.90) m/uL Hgb (13.0-17.5) gm/dL Hct (39.0-53.0) % MCHC (31.0-37.0) g/dL Plt Count (150-450) k/uL Neutrophils # (1.3-7.7) k/uL Lymphocytes # (1.0-4.8) k/uL Monocytes # (0-1.0) k/uL PT (10.0-12.5) sec INR (<1.2) APTT (22.0-30.0) sec D-Dimer (<0.60) mg/L FEU ABG pH (7.35-7.45) ABG pCO2 (35-45) mmHg ABG pO2 151 H (83-108) mmHg ABG HCO3 26 H (21-25) mmol/L ABG Total CO2 27 H (19-24) mmol/L ABG O2 Saturation 100.0 H (94-97) % Potassium (3.5-5.1) mmol/L Chloride (98-107) mmol/L Carbon Dioxide (22-30) mmol/L BUN (9-20) mg/dL Creatinine (0.66-1.25) mg/dL Glucose (74-99) mg/dL POC Glucose (mg/dL) 198 H (70-110) mg/dL Plasma Lactic Acid Aniceto 6.4 H* (0.7-2.0) mmol/L Calcium (8.4-10.2) mg/dL Phosphorus (2.5-4.5) mg/dL Magnesium (1.6-2.3) mg/dL Delta Bilirubin (0.0-0.2) mg/dL AST (17-59) U/L ALT (4-49) U/L Total Protein (6.3-8.2) g/dL Albumin (3.5-5.0) g/dL 04/08/24 04/08/24 04/09/24 Range/Units 23:02 23:44 00:02 WBC (3.8-10.6) k/uL RBC (4.30-5.90) m/uL Hgb (13.0-17.5) gm/dL Hct (39.0-53.0) % MCHC (31.0-37.0) g/dL Plt Count (150-450) k/uL Neutrophils # (1.3-7.7) k/uL Lymphocytes # (1.0-4.8) k/uL Monocytes # (0-1.0) k/uL PT (10.0-12.5) sec INR (<1.2) APTT (22.0-30.0) sec D-Dimer (<0.60) mg/L FEU ABG pH (7.35-7.45) ABG pCO2 (35-45) mmHg ABG pO2 (83-108) mmHg ABG HCO3 (21-25) mmol/L ABG Total CO2 (19-24) mmol/L ABG O2 Saturation (94-97) % Potassium (3.5-5.1) mmol/L Chloride (98-107) mmol/L Carbon Dioxide (22-30) mmol/L BUN (9-20) mg/dL Creatinine (0.66-1.25) mg/dL Glucose (74-99) mg/dL POC Glucose (mg/dL) 189 H 226 H (70-110) mg/dL Plasma Lactic Acid Aniceto 5.9 H* (0.7-2.0) mmol/L Calcium (8.4-10.2) mg/dL Phosphorus (2.5-4.5) mg/dL Magnesium (1.6-2.3) mg/dL Delta Bilirubin (0.0-0.2) mg/dL AST (17-59) U/L ALT (4-49) U/L Total Protein (6.3-8.2) g/dL Albumin (3.5-5.0) g/dL 04/09/24 04/09/24 04/09/24 Range/Units 04:10 04:10 04:10 WBC 21.4 H (3.8-10.6) k/uL RBC 3.70 L (4.30-5.90) m/uL Hgb 11.0 L D (13.0-17.5) gm/dL Hct 33.4 L (39.0-53.0) % MCHC (31.0-37.0) g/dL Plt Count 114 L (150-450) k/uL Neutrophils # (1.3-7.7) k/uL Lymphocytes # (1.0-4.8) k/uL Monocytes # (0-1.0) k/uL PT 22.3 H (10.0-12.5) sec INR 2.2 H (<1.2) APTT 31.9 H (22.0-30.0) sec D-Dimer (<0.60) mg/L FEU ABG pH (7.35-7.45) ABG pCO2 (35-45) mmHg ABG pO2 (83-108) mmHg ABG HCO3 (21-25) mmol/L ABG Total CO2 (19-24) mmol/L ABG O2 Saturation (94-97) % Potassium (3.5-5.1) mmol/L Chloride 113 H (98-107) mmol/L Carbon Dioxide (22-30) mmol/L BUN 27 H (9-20) mg/dL Creatinine 1.45 H (0.66-1.25) mg/dL Glucose 216 H (74-99) mg/dL POC Glucose (mg/dL) (70-110) mg/dL Plasma Lactic Acid Aniceto (0.7-2.0) mmol/L Calcium 7.8 L (8.4-10.2) mg/dL Phosphorus 2.3 L (2.5-4.5) mg/dL Magnesium 1.5 L (1.6-2.3) mg/dL Delta Bilirubin 0.5 H (0.0-0.2) mg/dL AST 92 H (17-59) U/L ALT (4-49) U/L Total Protein 4.4 L (6.3-8.2) g/dL Albumin 2.3 L (3.5-5.0) g/dL 04/09/24 04/09/24 04/09/24 Range/Units 04:10 04:15 05:10 WBC (3.8-10.6) k/uL RBC (4.30-5.90) m/uL Hgb (13.0-17.5) gm/dL Hct (39.0-53.0) % MCHC (31.0-37.0) g/dL Plt Count (150-450) k/uL Neutrophils # (1.3-7.7) k/uL Lymphocytes # (1.0-4.8) k/uL Monocytes # (0-1.0) k/uL PT (10.0-12.5) sec INR (<1.2) APTT (22.0-30.0) sec D-Dimer (<0.60) mg/L FEU ABG pH 7.49 H (7.35-7.45) ABG pCO2 (35-45) mmHg ABG pO2 60 L (83-108) mmHg ABG HCO3 28 H (21-25) mmol/L ABG Total CO2 29 H (19-24) mmol/L ABG O2 Saturation (94-97) % Potassium (3.5-5.1) mmol/L Chloride (98-107) mmol/L Carbon Dioxide (22-30) mmol/L BUN (9-20) mg/dL Creatinine (0.66-1.25) mg/dL Glucose (74-99) mg/dL POC Glucose (mg/dL) 201 H (70-110) mg/dL Plasma Lactic Acid Aniceto 2.5 H* (0.7-2.0) mmol/L Calcium (8.4-10.2) mg/dL Phosphorus (2.5-4.5) mg/dL Magnesium (1.6-2.3) mg/dL Delta Bilirubin (0.0-0.2) mg/dL AST (17-59) U/L ALT (4-49) U/L Total Protein (6.3-8.2) g/dL Albumin (3.5-5.0) g/dL 04/09/24 04/09/24 04/09/24 Range/Units 05:23 05:23 07:51 WBC 23.5 H (3.8-10.6) k/uL RBC (4.30-5.90) m/uL Hgb (13.0-17.5) gm/dL Hct (39.0-53.0) % MCHC (31.0-37.0) g/dL Plt Count 145 L (150-450) k/uL Neutrophils # 21.2 H (1.3-7.7) k/uL Lymphocytes # 0.5 L (1.0-4.8) k/uL Monocytes # 1.6 H (0-1.0) k/uL PT 20.9 H (10.0-12.5) sec INR 2.1 H (<1.2) APTT (22.0-30.0) sec D-Dimer (<0.60) mg/L FEU ABG pH (7.35-7.45) ABG pCO2 (35-45) mmHg ABG pO2 (83-108) mmHg ABG HCO3 (21-25) mmol/L ABG Total CO2 (19-24) mmol/L ABG O2 Saturation (94-97) % Potassium (3.5-5.1) mmol/L Chloride (98-107) mmol/L Carbon Dioxide (22-30) mmol/L BUN (9-20) mg/dL Creatinine (0.66-1.25) mg/dL Glucose (74-99) mg/dL POC Glucose (mg/dL) 236 H (70-110) mg/dL Plasma Lactic Acid Aniceto (0.7-2.0) mmol/L Calcium (8.4-10.2) mg/dL Phosphorus (2.5-4.5) mg/dL Magnesium (1.6-2.3) mg/dL Delta Bilirubin (0.0-0.2) mg/dL AST (17-59) U/L ALT (4-49) U/L Total Protein (6.3-8.2) g/dL Albumin (3.5-5.0) g/dL 04/09/24 Range/Units 09:08 WBC (3.8-10.6) k/uL RBC (4.30-5.90) m/uL Hgb (13.0-17.5) gm/dL Hct (39.0-53.0) % MCHC (31.0-37.0) g/dL Plt Count (150-450) k/uL Neutrophils # (1.3-7.7) k/uL Lymphocytes # (1.0-4.8) k/uL Monocytes # (0-1.0) k/uL PT (10.0-12.5) sec INR (<1.2) APTT (22.0-30.0) sec D-Dimer (<0.60) mg/L FEU ABG pH (7.35-7.45) ABG pCO2 (35-45) mmHg ABG pO2 (83-108) mmHg ABG HCO3 (21-25) mmol/L ABG Total CO2 (19-24) mmol/L ABG O2 Saturation (94-97) % Potassium (3.5-5.1) mmol/L Chloride (98-107) mmol/L Carbon Dioxide (22-30) mmol/L BUN (9-20) mg/dL Creatinine (0.66-1.25) mg/dL Glucose (74-99) mg/dL POC Glucose (mg/dL) (70-110) mg/dL Plasma Lactic Acid Aniceto 3.1 H* (0.7-2.0) mmol/L Calcium (8.4-10.2) mg/dL Phosphorus (2.5-4.5) mg/dL Magnesium (1.6-2.3) mg/dL Delta Bilirubin (0.0-0.2) mg/dL AST (17-59) U/L ALT (4-49) U/L Total Protein (6.3-8.2) g/dL Albumin (3.5-5.0) g/dL Assessment and Plan Assessment: Impression: Acute hypoxic respiratory failure secondary to cardiac arrest Acute subdural hematoma/mass with herniation History of coronary artery disease with total occlusion of RCA History of underlying COPD History of benign essential hypertension History of HIV/AIDS syndrome Recommendation: Brain protocol was done today could not do the apnea test, as he seems extremely marginal Continue ventilatory support Continue hemodynamic support GI and DVT prophylaxis Nutritional support/enteral feeding [facility] is on board Critical time is over 30 minutes Will continue to follow Time with Patient: Greater than 30
[2024-04-09 12:37] LABS: ABG Base Excess 5.5 mmol/L; ABG HCO3 28 mmol/L (21-25); ABG Oxygen Saturation 90.2 % (94-97); ABG PCO2 34 mmHg (35-45); ABG PH 7.53 (7.35-7.45); ABG TCO2 29 mmol/L (19-24)
[2024-04-09 12:38] LABS: ABG PO2 49 mmHg (83-108); Allen Test Performed? no
[2024-04-09 12:39] LABS: Glucose,Whole Blood 194 mg/dL (70-110)
--- NOTE | 2024-04-09 13:16 | P.PN ---
Subjective Progress Note Date: 04/09/24 Jack Luna, is a 63-year-old male who was found unresponsive on the floor of his house by his neighbor, CPR was initiated and EMS were called patient was brought into emergency room. He was evaluated in the emergency room vital examination on presentation revealed a temperature of 95.2 pulse 110 respiration 18 blood pressure 158/70 pulse ox 100% on mechanical ventilation Laboratory data revealed a white blood count of 20.3 hemoglobin 15.4 platelet count 208 ABG revealed a pH of 6.97 pCO2 75 pO2 179 sodium 145 potassium 3.3 chloride 111 CO2 17 BUN 25 creatinine 1.23 AST 113 ALT 66 ammonia level 85 c reatinine kinase 620 serum alcohol level less than 10 Testing in the emergency room revealed CT scan of the brain revealed left acute subdural hemorrhage with subfalcine herniation and suspected early tonsillar herniation. Family was contacted regarding patient condition in the emergency room, and need to transfer to a tertiary care center, however they opted for admission to our hospital with plan to proceed with comfort care only and hospice care. Patient was admitted to ICU, on mechanical ventilation, awaiting arrival of multiple family members Past medical history is significant for underlying history of hypertension, history of COPD, history of obstructive sleep apnea maintained on BiPAP, history of gastroesophageal reflux disease, history of osteoarthritis, and history of HIV AIDS syndrome. On 04/08/2024 patient remains in the intensive care unit on mechanical ventilation patient requiring increased vasopressors. [facility] process has been initiated workup in process critical care and neurology services following. On 04/09/2024, patient was seen and examined in the ICU, he is intubated sedated maintained on mechanical ventilation, his O2 saturation remains low, despite high FiO2 of 85%, and PEEP of 8. At this time family are working with [employer], to help with organ donation process. Patient is comfortable on current measures. Objective - Vital Signs Vital signs: Vital Signs Temp 102.7 F H 04/09/24 12:45 Pulse 86 04/09/24 13:00 Resp 32 H 04/09/24 13:00 BP 112/81 04/09/24 13:00 Pulse Ox 94 L 04/09/24 13:00 FiO2 100 04/09/24 13:00 Intake & Output 04/08/24 04/09/24 04/09/24 18:59 06:59 18:59 Intake Total 4009.589 3490.953 1624.731 Output Total 665 770 440 Balance 3344.589 2720.953 1184.731 Weight 101.7 kg Intake: IV 1128 86 221 .9NS Pressure bag 3 36 21 Clevidipine Butyrate 25 125 mg In Empty Bag 1 bag @ 1 MG/HR 2 mls/hr IV .Q24H MICHELLE Rx#:[id number] Dextrose 5% in Water 1, 1000 000 ml @ 999 mls/hr IV . Q1H1M ONE Rx#:[id number] Magnesium Sulfate-D5w Pmx 200 1 gm In Dextrose/Water 1 100ml.bag @ 100 mls/hr IVPB Q1H MICHELLE Rx#: [id number] Potassium Chloride 10 meq 50 In Water For Injection 1 100ml.bag @ 100 mls/hr IVPB Q1H MICHELLE Rx#: [id number] Intake, IV Titration 2881.589 3404.953 1403.731 Amount Dextrose 5% in Water 1, 500 1200 300 000 ml @ 100 mls/hr IV . [id number] MICHELLE with Sodium Bicarb (1 Meq/ml) 150 ml Rx#:[id number] Dextrose 5% in Water 1, 1250 125 000 ml @ 125 mls/hr IV . Q8H MICHELLE Rx#:[id number] Midazolam HCl 50 mg In 1 Sodium Chloride 0.9% 40 ml @ 1 MG/HR 1 mls/hr IV .Q24H MICHELLE Rx#:[id number] Midazolam HCl 50 mg In 1.6 Sodium Chloride 0.9% 40 ml @ 3 MG/HR 3 mls/hr IV .[id number] MICHELLE Rx#: [id number] Norepinephrine 4 mg In 375.478 Sodium Chloride 0.9% 250 ml @ 0.03 MCG/KG/MIN 10. 369 mls/hr IV .Q24H MICHELLE Rx#:[id number] Norepinephrine 8 mg In 205.422 98.541 Sodium Chloride 0.9% 250 ml @ 0.03 MCG/KG/MIN 5. 306 mls/hr IV .Q24H MICHELLE Rx#:[id number] Phenylephrine 40 mg In 254.000 361.430 128.731 Sodium Chloride 0.9% 250 ml @ 0.5 MCG/KG/MIN 17. 412 mls/hr IV .[id number] MICHELLE Rx#:[id number] Piperacillin-Tazobactam 3 125 100 100 .375 gm In Sodium Chloride 0.9% 100 ml @ 25 mls/hr IVPB Q8H MICHELLE Rx#: [id number] Potassium Chloride 10 meq 125 In Water For Injection 1 100ml.bag @ 100 mls/hr IVPB Q1H MICHELLE Rx#: [id number] Potassium Chloride 20 meq 100 In Water For Injection 1 100ml.bag @ 50 mls/hr IVPB Q2H MICHELLE Rx#: [id number] Sodium Chloride 0.9% 1, 1375 875 000 ml @ 125 mls/hr IV . Q8H MICHELLE Rx#:[id number] Vasopressin 20 unit In 44.089 44.982 Sodium Chloride 0.9% 50 ml @ 0.03 UNITS/MIN 4.59 mls/hr IV .[id number] MICHELLE Rx# :[id number] Output: Urine 665 770 440 Other: Voiding Method Indwelling Catheter Indwelling Catheter ABP, PAP, CO, CI - Last Documented Arterial Blood Pressure 110/62 - Exam Patient is intubated sedated maintained on mechanical ventilation HEENT head normocephalic and atraumatic Neck is supple no JVD no goiter no lymphadenopathy no carotid bruit Chest examination is clear to auscultation no crackles no wheezing Cardiac exam reveals regular heart sounds S1 and S2 no gallops no murmurs Abdomen is soft nontender no organomegaly with normal bowel sounds Extremity exam reveals no edema no cyanosis or clubbing - Labs CBC & Chem 7: 04/09/24 05:23 04/09/24 04:10 Labs: Abnormal Lab Results - Last 24 Hours (Table) 04/08/24 04/08/24 04/08/24 Range/Units 05:50 12:37 13:15 WBC (3.8-10.6) k/uL RBC (4.30-5.90) m/uL Hgb (13.0-17.5) gm/dL Hct (39.0-53.0) % Plt Count (150-450) k/uL Neutrophils # (1.3-7.7) k/uL Lymphocytes # (1.0-4.8) k/uL Monocytes # (0-1.0) k/uL PT (10.0-12.5) sec INR (<1.2) APTT (22.0-30.0) sec ABG pH 7.07 L* 7.07 L* 7.23 L (7.35-7.45) ABG pCO2 76 H* 76 H* 74 H* (35-45) mmHg ABG pO2 56 L* 56 L* 59 L* (83-108) mmHg ABG HCO3 31 H (21-25) mmol/L ABG Total CO2 33 H (19-24) mmol/L ABG O2 Saturation 82.3 L 82.3 L 89.4 L (94-97) % Hemoglobin (13.0-17.5) gm/dL Chloride (98-107) mmol/L BUN (9-20) mg/dL Creatinine (0.66-1.25) mg/dL Glucose (74-99) mg/dL POC Glucose (mg/dL) (70-110) mg/dL Plasma Lactic Acid Aniceto (0.7-2.0) mmol/L Calcium (8.4-10.2) mg/dL Phosphorus (2.5-4.5) mg/dL Magnesium (1.6-2.3) mg/dL Delta Bilirubin (0.0-0.2) mg/dL AST (17-59) U/L Total Protein (6.3-8.2) g/dL Albumin (3.5-5.0) g/dL 04/08/24 04/08/24 04/08/24 Range/Units 14:55 17:21 17:52 WBC (3.8-10.6) k/uL RBC (4.30-5.90) m/uL Hgb (13.0-17.5) gm/dL Hct (39.0-53.0) % Plt Count (150-450) k/uL Neutrophils # (1.3-7.7) k/uL Lymphocytes # (1.0-4.8) k/uL Monocytes # (0-1.0) k/uL PT (10.0-12.5) sec INR (<1.2) APTT (22.0-30.0) sec ABG pH (7.35-7.45) ABG pCO2 (35-45) mmHg ABG pO2 (83-108) mmHg ABG HCO3 (21-25) mmol/L ABG Total CO2 (19-24) mmol/L ABG O2 Saturation (94-97) % Hemoglobin (13.0-17.5) gm/dL Chloride (98-107) mmol/L BUN (9-20) mg/dL Creatinine (0.66-1.25) mg/dL Glucose (74-99) mg/dL POC Glucose (mg/dL) 139 H 138 H (70-110) mg/dL Plasma Lactic Acid Aniceto 2.8 H* (0.7-2.0) mmol/L Calcium (8.4-10.2) mg/dL Phosphorus (2.5-4.5) mg/dL Magnesium (1.6-2.3) mg/dL Delta Bilirubin (0.0-0.2) mg/dL AST (17-59) U/L Total Protein (6.3-8.2) g/dL Albumin (3.5-5.0) g/dL 04/08/24 04/08/24 04/08/24 Range/Units 18:15 20:07 20:07 WBC 20.4 H (3.8-10.6) k/uL RBC (4.30-5.90) m/uL Hgb (13.0-17.5) gm/dL Hct (39.0-53.0) % Plt Count (150-450) k/uL Neutrophils # (1.3-7.7) k/uL Lymphocytes # (1.0-4.8) k/uL Monocytes # (0-1.0) k/uL PT 16.4 H (10.0-12.5) sec INR 1.6 H (<1.2) APTT (22.0-30.0) sec ABG pH (7.35-7.45) ABG pCO2 (35-45) mmHg ABG pO2 (83-108) mmHg ABG HCO3 (21-25) mmol/L ABG Total CO2 (19-24) mmol/L ABG O2 Saturation (94-97) % Hemoglobin (13.0-17.5) gm/dL Chloride (98-107) mmol/L BUN (9-20) mg/dL Creatinine (0.66-1.25) mg/dL Glucose (74-99) mg/dL POC Glucose (mg/dL) (70-110) mg/dL Plasma Lactic Acid Aniceto 3.0 H* (0.7-2.0) mmol/L Calcium (8.4-10.2) mg/dL Phosphorus (2.5-4.5) mg/dL Magnesium (1.6-2.3) mg/dL Delta Bilirubin (0.0-0.2) mg/dL AST (17-59) U/L Total Protein (6.3-8.2) g/dL Albumin (3.5-5.0) g/dL 04/08/24 04/08/24 04/08/24 Range/Units 20:07 20:07 21:04 WBC (3.8-10.6) k/uL RBC (4.30-5.90) m/uL Hgb (13.0-17.5) gm/dL Hct (39.0-53.0) % Plt Count (150-450) k/uL Neutrophils # (1.3-7.7) k/uL Lymphocytes # (1.0-4.8) k/uL Monocytes # (0-1.0) k/uL PT (10.0-12.5) sec INR (<1.2) APTT (22.0-30.0) sec ABG pH (7.35-7.45) ABG pCO2 (35-45) mmHg ABG pO2 (83-108) mmHg ABG HCO3 (21-25) mmol/L ABG Total CO2 (19-24) mmol/L ABG O2 Saturation (94-97) % Hemoglobin (13.0-17.5) gm/dL Chloride 113 H (98-107) mmol/L BUN 28 H (9-20) mg/dL Creatinine 1.63 H (0.66-1.25) mg/dL Glucose 168 H (74-99) mg/dL POC Glucose (mg/dL) 198 H (70-110) mg/dL Plasma Lactic Acid Aniceto 3.5 H* (0.7-2.0) mmol/L Calcium 8.1 L (8.4-10.2) mg/dL Phosphorus 1.6 L (2.5-4.5) mg/dL Magnesium (1.6-2.3) mg/dL Delta Bilirubin 0.5 H (0.0-0.2) mg/dL AST 82 H (17-59) U/L Total Protein 4.6 L (6.3-8.2) g/dL Albumin 2.4 L (3.5-5.0) g/dL 04/08/24 04/08/24 04/08/24 Range/Units 21:12 21:20 23:02 WBC (3.8-10.6) k/uL RBC (4.30-5.90) m/uL Hgb (13.0-17.5) gm/dL Hct (39.0-53.0) % Plt Count (150-450) k/uL Neutrophils # (1.3-7.7) k/uL Lymphocytes # (1.0-4.8) k/uL Monocytes # (0-1.0) k/uL PT (10.0-12.5) sec INR (<1.2) APTT (22.0-30.0) sec ABG pH (7.35-7.45) ABG pCO2 (35-45) mmHg ABG pO2 151 H (83-108) mmHg ABG HCO3 26 H (21-25) mmol/L ABG Total CO2 27 H (19-24) mmol/L ABG O2 Saturation 100.0 H (94-97) % Hemoglobin (13.0-17.5) gm/dL Chloride (98-107) mmol/L BUN (9-20) mg/dL Creatinine (0.66-1.25) mg/dL Glucose (74-99) mg/dL POC Glucose (mg/dL) 189 H (70-110) mg/dL Plasma Lactic Acid Aniceto 6.4 H* (0.7-2.0) mmol/L Calcium (8.4-10.2) mg/dL Phosphorus (2.5-4.5) mg/dL Magnesium (1.6-2.3) mg/dL Delta Bilirubin (0.0-0.2) mg/dL AST (17-59) U/L Total Protein (6.3-8.2) g/dL Albumin (3.5-5.0) g/dL 04/08/24 04/09/24 04/09/24 Range/Units 23:44 00:02 04:10 WBC 21.4 H (3.8-10.6) k/uL RBC 3.70 L (4.30-5.90) m/uL Hgb 11.0 L D (13.0-17.5) gm/dL Hct 33.4 L (39.0-53.0) % Plt Count 114 L (150-450) k/uL Neutrophils # (1.3-7.7) k/uL Lymphocytes # (1.0-4.8) k/uL Monocytes # (0-1.0) k/uL PT (10.0-12.5) sec INR (<1.2) APTT (22.0-30.0) sec ABG pH (7.35-7.45) ABG pCO2 (35-45) mmHg ABG pO2 (83-108) mmHg ABG HCO3 (21-25) mmol/L ABG Total CO2 (19-24) mmol/L ABG O2 Saturation (94-97) % Hemoglobin (13.0-17.5) gm/dL Chloride (98-107) mmol/L BUN (9-20) mg/dL Creatinine (0.66-1.25) mg/dL Glucose (74-99) mg/dL POC Glucose (mg/dL) 226 H (70-110) mg/dL Plasma Lactic Acid Aniceto 5.9 H* (0.7-2.0) mmol/L Calcium (8.4-10.2) mg/dL Phosphorus (2.5-4.5) mg/dL Magnesium (1.6-2.3) mg/dL Delta Bilirubin (0.0-0.2) mg/dL AST (17-59) U/L Total Protein (6.3-8.2) g/dL Albumin (3.5-5.0) g/dL 04/09/24 04/09/24 04/09/24 Range/Units 04:10 04:10 04:10 WBC (3.8-10.6) k/uL RBC (4.30-5.90) m/uL Hgb (13.0-17.5) gm/dL Hct (39.0-53.0) % Plt Count (150-450) k/uL Neutrophils # (1.3-7.7) k/uL Lymphocytes # (1.0-4.8) k/uL Monocytes # (0-1.0) k/uL PT 22.3 H (10.0-12.5) sec INR 2.2 H (<1.2) APTT 31.9 H (22.0-30.0) sec ABG pH (7.35-7.45) ABG pCO2 (35-45) mmHg ABG pO2 (83-108) mmHg ABG HCO3 (21-25) mmol/L ABG Total CO2 (19-24) mmol/L ABG O2 Saturation (94-97) % Hemoglobin (13.0-17.5) gm/dL Chloride 113 H (98-107) mmol/L BUN 27 H (9-20) mg/dL Creatinine 1.45 H (0.66-1.25) mg/dL Glucose 216 H (74-99) mg/dL POC Glucose (mg/dL) (70-110) mg/dL Plasma Lactic Acid Aniceto 2.5 H* (0.7-2.0) mmol/L Calcium 7.8 L (8.4-10.2) mg/dL Phosphorus 2.3 L (2.5-4.5) mg/dL Magnesium 1.5 L (1.6-2.3) mg/dL Delta Bilirubin 0.5 H (0.0-0.2) mg/dL AST 92 H (17-59) U/L Total Protein 4.4 L (6.3-8.2) g/dL Albumin 2.3 L (3.5-5.0) g/dL 04/09/24 04/09/24 04/09/24 Range/Units 04:15 05:10 05:23 WBC (3.8-10.6) k/uL RBC (4.30-5.90) m/uL Hgb (13.0-17.5) gm/dL Hct (39.0-53.0) % Plt Count (150-450) k/uL Neutrophils # (1.3-7.7) k/uL Lymphocytes # (1.0-4.8) k/uL Monocytes # (0-1.0) k/uL PT 20.9 H (10.0-12.5) sec INR 2.1 H (<1.2) APTT (22.0-30.0) sec ABG pH 7.49 H (7.35-7.45) ABG pCO2 (35-45) mmHg ABG pO2 60 L (83-108) mmHg ABG HCO3 28 H (21-25) mmol/L ABG Total CO2 29 H (19-24) mmol/L ABG O2 Saturation (94-97) % Hemoglobin (13.0-17.5) gm/dL Chloride (98-107) mmol/L BUN (9-20) mg/dL Creatinine (0.66-1.25) mg/dL Glucose (74-99) mg/dL POC Glucose (mg/dL) 201 H (70-110) mg/dL Plasma Lactic Acid Aniceto (0.7-2.0) mmol/L Calcium (8.4-10.2) mg/dL Phosphorus (2.5-4.5) mg/dL Magnesium (1.6-2.3) mg/dL Delta Bilirubin (0.0-0.2) mg/dL AST (17-59) U/L Total Protein (6.3-8.2) g/dL Albumin (3.5-5.0) g/dL 04/09/24 04/09/24 04/09/24 Range/Units 05:23 07:51 09:08 WBC 23.5 H (3.8-10.6) k/uL RBC (4.30-5.90) m/uL Hgb (13.0-17.5) gm/dL Hct (39.0-53.0) % Plt Count 145 L (150-450) k/uL Neutrophils # 21.2 H (1.3-7.7) k/uL Lymphocytes # 0.5 L (1.0-4.8) k/uL Monocytes # 1.6 H (0-1.0) k/uL PT (10.0-12.5) sec INR (<1.2) APTT (22.0-30.0) sec ABG pH (7.35-7.45) ABG pCO2 (35-45) mmHg ABG pO2 (83-108) mmHg ABG HCO3 (21-25) mmol/L ABG Total CO2 (19-24) mmol/L ABG O2 Saturation (94-97) % Hemoglobin (13.0-17.5) gm/dL Chloride (98-107) mmol/L BUN (9-20) mg/dL Creatinine (0.66-1.25) mg/dL Glucose (74-99) mg/dL POC Glucose (mg/dL) 236 H (70-110) mg/dL Plasma Lactic Acid Aniceto 3.1 H* (0.7-2.0) mmol/L Calcium (8.4-10.2) mg/dL Phosphorus (2.5-4.5) mg/dL Magnesium (1.6-2.3) mg/dL Delta Bilirubin (0.0-0.2) mg/dL AST (17-59) U/L Total Protein (6.3-8.2) g/dL Albumin (3.5-5.0) g/dL 04/09/24 04/09/24 Range/Units 12:35 12:36 WBC (3.8-10.6) k/uL RBC (4.30-5.90) m/uL Hgb (13.0-17.5) gm/dL Hct (39.0-53.0) % Plt Count (150-450) k/uL Neutrophils # (1.3-7.7) k/uL Lymphocytes # (1.0-4.8) k/uL Monocytes # (0-1.0) k/uL PT (10.0-12.5) sec INR (<1.2) APTT (22.0-30.0) sec ABG pH 7.53 H (7.35-7.45) ABG pCO2 34 L (35-45) mmHg ABG pO2 49 L* (83-108) mmHg ABG HCO3 28 H (21-25) mmol/L ABG Total CO2 29 H (19-24) mmol/L ABG O2 Saturation 90.2 L (94-97) % Hemoglobin 12.6 L (13.0-17.5) gm/dL Chloride (98-107) mmol/L BUN (9-20) mg/dL Creatinine (0.66-1.25) mg/dL Glucose (74-99) mg/dL POC Glucose (mg/dL) 194 H (70-110) mg/dL Plasma Lactic Acid Aniceto (0.7-2.0) mmol/L Calcium (8.4-10.2) mg/dL Phosphorus (2.5-4.5) mg/dL Magnesium (1.6-2.3) mg/dL Delta Bilirubin (0.0-0.2) mg/dL AST (17-59) U/L Total Protein (6.3-8.2) g/dL Albumin (3.5-5.0) g/dL Assessment and Plan Plan: Acute subdural hematoma with evidence of herniation Cardiac arrest requiring prolonged resuscitation Acute hypoxic respiratory failure requiring mechanical ventilation Underlying history of HIV AIDS syndrome Underlying history of coronary artery disease Underlying history of hypertension Underlying history of COPD At this time patient is admitted to intensive care unit He was started on mechanical ventilation in the emergency room At this time we are awaiting arrival of multiple family members, they are waiting for gift of life evaluation Plan is to proceed with comfort care only and hospice care.
[2024-04-09 13:56] LABS: HCT 38.2 % (39.0-53.0); HGB 12.3 gm/dL (13.0-17.5); MCH 28.6 pg (25.0-35.0); MCHC 32.1 g/dL (31.0-37.0); MCV 89.3 fL (80.0-100.0); Platelet Count 132 k/uL (150-450); RBC 4.28 m/uL (4.30-5.90); RDW 14.6 % (11.5-15.5); WBC 22.6 k/uL (3.8-10.6)
[2024-04-09 14:08] LABS: ALT 45 U/L (4-49); AST 89 U/L (17-59); African American GFR (CKD) 60 (>60 ml/min/1.73 sqM); Albumin 2.2 g/dL (3.5-5.0); Alkaline Phosphatase 75 U/L (38-126); Anion Gap 6 mmol/L; Bilirubin, Delta 0.5 mg/dL (0.0-0.2); Bilirubin,Unconjugated 0.6 mg/dL (0.0-1.1); Blood Urea Nitrogen 26 mg/dL (9-20); Calcium 7.9 mg/dL (8.4-10.2); Carbon Dioxide 28 mmol/L (22-30); Chloride 111 mmol/L (98-107); Glucose 173 mg/dL (74-99); Magnesium 2.1 mg/dL (1.6-2.3); Non-African American GFR(CKD) 52 (>60 ml/min/1.73 sqM); Phosphorus 2.1 mg/dL (2.5-4.5); Potassium 3.9 mmol/L (3.5-5.1); Sodium 145 mmol/L (137-145); Total Bilirubin 1.1 mg/dL (0.2-1.3); Total Protein 4.3 g/dL (6.3-8.2)
[2024-04-09 14:12] LABS: INR 1.7 (<1.2)
[2024-04-09 14:13] LABS: Partial Thromboplastin Time 29.3 sec (22.0-30.0); Prothrombin Time 17.2 sec (10.0-12.5)
[2024-04-09 17:03] LABS: Glucose,Whole Blood 163 mg/dL (70-110)
[2024-04-09 19:50] LABS: ABG Base Excess 4.5 mmol/L; ABG HCO3 27 mmol/L (21-25); ABG PCO2 33 mmHg (35-45); ABG PH 7.53 (7.35-7.45); ABG TCO2 28 mmol/L (19-24); Allen Test Performed? Yes
[2024-04-09 19:52] LABS: Glucose,Whole Blood 193 mg/dL (70-110)
[2024-04-09 19:54] LABS: ABG PO2 51 mmHg (83-108)
[2024-04-09 20:43] LABS: HCT 36.6 % (39.0-53.0); HGB 12.1 gm/dL (13.0-17.5); MCH 29.5 pg (25.0-35.0); MCHC 33.2 g/dL (31.0-37.0); MCV 88.9 fL (80.0-100.0); Mean Platelet Volume 8.2; Platelet Count 121 k/uL (150-450); RBC 4.11 m/uL (4.30-5.90); RDW 14.6 % (11.5-15.5); WBC 21.4 k/uL (3.8-10.6)
[2024-04-09 20:56] LABS: INR 1.6 (<1.2); Partial Thromboplastin Time 29.4 sec (22.0-30.0)
[2024-04-09 20:57] LABS: ALT 47 U/L (4-49); AST 86 U/L (17-59); African American GFR (CKD) 67 (>60 ml/min/1.73 sqM); Albumin 2.2 g/dL (3.5-5.0); Alkaline Phosphatase 73 U/L (38-126); Anion Gap 6 mmol/L; Bilirubin, Delta 0.6 mg/dL (0.0-0.2); Bilirubin,Unconjugated 0.7 mg/dL (0.0-1.1); Blood Urea Nitrogen 29 mg/dL (9-20); Carbon Dioxide 26 mmol/L (22-30); Chloride 113 mmol/L (98-107); Glucose 170 mg/dL (74-99); Magnesium 2.1 mg/dL (1.6-2.3); Non-African American GFR(CKD) 58 (>60 ml/min/1.73 sqM); Phosphorus 2.1 mg/dL (2.5-4.5); Potassium 3.4 mmol/L (3.5-5.1); Sodium 145 mmol/L (137-145); Total Bilirubin 1.3 mg/dL (0.2-1.3); Total Protein 4.4 g/dL (6.3-8.2)
[2024-04-09] MEDS: POTASSIUM BICARBONATE/CIT AC 20 MEQ TABLET.EFF NG-TUBE SCH (21:45)
[2024-04-09 23:28] LABS: Glucose,Whole Blood 191 mg/dL (70-110)
[2024-04-10 01:22] LABS: African American GFR (CKD) 73 (>60 ml/min/1.73 sqM); Anion Gap 2 mmol/L; Blood Urea Nitrogen 30 mg/dL (9-20); Carbon Dioxide 25 mmol/L (22-30); Chloride 117 mmol/L (98-107); Glucose 184 mg/dL (74-99); Non-African American GFR(CKD) 63 (>60 ml/min/1.73 sqM); Potassium 3.2 mmol/L (3.5-5.1); Sodium 144 mmol/L (137-145)
[2024-04-10] MEDS: POTASSIUM CHLORIDE 20 MEQ in WATER FOR INJECTION 1 100ML.BAG IVPB SCH (01:55)
[2024-04-10 04:10] LABS: ABG Base Excess 4.4 mmol/L; ABG HCO3 27 mmol/L (21-25); ABG Oxygen Saturation 92.2 % (94-97); ABG PCO2 32 mmHg (35-45); ABG PH 7.53 (7.35-7.45); ABG TCO2 28 mmol/L (19-24); Allen Test Performed? Yes
[2024-04-10 04:11] LABS: Glucose,Whole Blood 184 mg/dL (70-110)
[2024-04-10 04:40] LABS: HCT 34.5 % (39.0-53.0); HGB 11.3 gm/dL (13.0-17.5); MCH 29.1 pg (25.0-35.0); MCHC 32.8 g/dL (31.0-37.0); MCV 88.7 fL (80.0-100.0); Mean Platelet Volume 8.1; Platelet Count 108 k/uL (150-450); RBC 3.89 m/uL (4.30-5.90); RDW 14.8 % (11.5-15.5); WBC 17.3 k/uL (3.8-10.6)
[2024-04-10 04:58] LABS: INR 1.5 (<1.2); Partial Thromboplastin Time 28.2 sec (22.0-30.0); Prothrombin Time 15.5 sec (10.0-12.5)
[2024-04-10 05:03] LABS: ALT 47 U/L (4-49); AST 81 U/L (17-59); African American GFR (CKD) 81 (>60 ml/min/1.73 sqM); Alkaline Phosphatase 67 U/L (38-126); Anion Gap 1 mmol/L; Bilirubin, Delta 0.5 mg/dL (0.0-0.2); Bilirubin,Unconjugated 0.6 mg/dL (0.0-1.1); Blood Urea Nitrogen 31 mg/dL (9-20); Calcium 8.1 mg/dL (8.4-10.2); Carbon Dioxide 25 mmol/L (22-30); Chloride 118 mmol/L (98-107); Glucose 168 mg/dL (74-99); Magnesium 2.1 mg/dL (1.6-2.3); Non-African American GFR(CKD) 70 (>60 ml/min/1.73 sqM); Phosphorus 1.7 mg/dL (2.5-4.5); Potassium 3.4 mmol/L (3.5-5.1); Sodium 144 mmol/L (137-145); Total Bilirubin 1.1 mg/dL (0.2-1.3); Total Protein 4.2 g/dL (6.3-8.2)
[2024-04-10 05:34] LABS: ABG PO2 57 mmHg (83-108)
--- NOTE | 2024-04-10 07:57 | XR ---
EXAMINATION TYPE: XR chest 1V portable DATE OF EXAM: 04/10/2024 6:31 AM COMPARISON: None. CLINICAL INDICATION: Male, 63 years old with history of copd/intubated, TECHNIQUE: XR chest 1V portable view(s) obtained. Patient rotated to the left FINDINGS: The heart size is normal. The pulmonary vasculature is normal. Bibasilar infiltrates are present. Nasogastric tube transverses the thorax with tip in the left upper quadrant of the abdomen. Endotrach eal tube tip is 4.8 cm above the. Right central venous catheter tip within the superior vena cava reg ion. IMPRESSION: 1. Bibasilar infiltrates. Small effusions may be present [facility], , 04/10/2024 7:54 AM
[2024-04-10 08:04] LABS: Glucose,Whole Blood 154 mg/dL (70-110)
[2024-04-10 08:07] VITALS: TEMP 98
[2024-04-10 08:55] LABS: Appearance,Urine Clear (Clear); Bilirubin,Urine Negative (Negative); Blood,Urine Large (Negative); Color,Urine Yellow; Glucose,Urine (UA) Negative (Negative); Ketones,Urine Negative (Negative); Leukocyte Esterase,Urine Negative (Negative); Nitrite,Urine Negative (Negative); PH, Urine 7.5 (5.0-8.0); Protein,Urine 1+ (Negative); RBC,Urine 2 /hpf (0-5); Specific Gravity,Urine 1.025 (1.001-1.035); Squamous Epithelial Cell,Urine <1 /hpf (0-4); WBC,Urine 2 /hpf (0-5)
[2024-04-10] MEDS: FUROSEMIDE 10 MG/ML 2 ML VIAL IV ONE (08:58)
--- NOTE | 2024-04-10 09:46 | P.PN ---
Subjective Progress Note Date: 04/10/24 Jack Luna, is a 63-year-old male who was found unresponsive on the floor of his house by his neighbor, CPR was initiated and EMS were called patient was brought into emergency room. He was evaluated in the emergency room vital examination on presentation revealed a temperature of 95.2 pulse 110 respiration 18 blood pressure 158/70 pulse ox 100% on mechanical ventilation Laboratory data revealed a white blood count of 20.3 hemoglobin 15.4 platelet count 208 ABG revealed a pH of 6.97 pCO2 75 pO2 179 sodium 145 potassium 3.3 chloride 111 CO2 17 BUN 25 creatinine 1.23 AST 113 ALT 66 ammonia level 85 c reatinine kinase 620 serum alcohol level less than 10 Testing in the emergency room revealed CT scan of the brain revealed left acute subdural hemorrhage with subfalcine herniation and suspected early tonsillar herniation. Family was contacted regarding patient condition in the emergency room, and need to transfer to a tertiary care center, however they opted for admission to our hospital with plan to proceed with comfort care only and hospice care. Patient was admitted to ICU, on mechanical ventilation, awaiting arrival of multiple family members Past medical history is significant for underlying history of hypertension, history of COPD, history of obstructive sleep apnea maintained on BiPAP, history of gastroesophageal reflux disease, history of osteoarthritis, and history of HIV AIDS syndrome. On 04/08/2024 patient remains in the intensive care unit on mechanical ventilation patient requiring increased vasopressors. Gift of life process has been initiated workup in process critical care and neurology services following. On 04/09/2024, patient was seen and examined in the ICU, he is intubated sedated maintained on mechanical ventilation, his O2 saturation remains low, despite high FiO2 of 85%, and PEEP of 8. At this time family are working with gift of life, to help with organ donation process. Patient is comfortable on current measures. On 04/10/2024 patient remains in the intensive care unit gift of life process initiated. Per nursing's services patient will go to the OR today for gift of life. Patient remains on mechanical ventilation without sedation brain protocol completed. Objective - Vital Signs Vital signs: Vital Signs Temp 98.0 F 04/10/24 08:00 Pulse 80 04/10/24 09:00 Resp 21 04/10/24 09:00 BP 108/75 04/10/24 09:00 Pulse Ox 91 L 04/10/24 09:00 FiO2 100 11/17/24 08:00 Intake & Output 04/09/24 04/10/24 04/10/24 18:59 06:59 18:59 Intake Total 2441.029 2064.317 394 Output Total 720 915 145 Balance 3835.064 9047.317 249 Weight 102 kg Intake: IV 286 186 9 .9NS Pressure bag 36 36 9 Magnesium Sulfate-D5w Pmx 200 1 gm In Dextrose/Water 1 100ml.bag @ 100 mls/hr IVPB Q1H [facility] Rx#: [id number] Piperacillin-Tazobactam 3 50 150 .375 gm In Sodium Chloride 0.9% 100 ml @ 25 mls/hr IVPB Q8H [facility] Rx#: [id number] Intake, IV Titration 2155.029 1878.317 385 Amount Dextrose 5% in Water 1, 300 000 ml @ 100 mls/hr IV . [id number] [facility] with Sodium Bicarb (1 Meq/ml) 150 ml Rx#:[id number] Phenylephrine 40 mg In 204.029 110.155 Sodium Chloride 0.9% 250 ml @ 0.5 MCG/KG/MIN 17. 412 mls/hr IV .[id number] [facility] Rx#:[id number] Piperacillin-Tazobactam 3 100 .375 gm In Sodium Chloride 0.9% 100 ml @ 25 mls/hr IVPB Q8H [facility] Rx#: [id number] Potassium Chloride 20 meq 200 In Water For Injection 1 100ml.bag @ 50 mls/hr IVPB Q2H [facility] Rx#: [id number] Sodium Chloride 0.9% 1, 1500 1500 385 000 ml @ 125 mls/hr IV . Q8H [facility] Rx#:[id number] Vasopressin 20 unit In 51 68.162 Sodium Chloride 0.9% 50 ml @ 0.03 UNITS/MIN 4.59 mls/hr IV .[id number] [facility] Rx# :[id number] Output: Gastric Drainage 250 Urine 720 665 145 Other: Voiding Method Indwelling Catheter Indwelling Catheter ABP, PAP, CO, CI - Last Documented Arterial Blood Pressure 106/65 - Exam Patient is intubated sedated maintained on mechanical ventilation HEENT head normocephalic and atraumatic Neck is supple no JVD no goiter no lymphadenopathy no carotid bruit Chest examination is clear to auscultation no crackles no wheezing Cardiac exam reveals regular heart sounds S1 and S2 no gallops no murmurs Abdomen is soft nontender no organomegaly with normal bowel sounds Extremity exam reveals no edema no cyanosis or clubbing - Labs CBC & Chem 7: 04/10/24 04:02 04/10/24 04:02 Labs: Abnormal Lab Results - Last 24 Hours (Table) 04/07/24 04/09/24 04/09/24 Range/Units 17:20 12:35 12:36 WBC (3.8-10.6) k/uL RBC (4.30-5.90) m/uL Hgb (13.0-17.5) gm/dL Hct (39.0-53.0) % Plt Count (150-450) k/uL PT (10.0-12.5) sec INR (<1.2) ABG pH 7.53 H (7.35-7.45) ABG pCO2 34 L (35-45) mmHg ABG pO2 49 L* (83-108) mmHg ABG HCO3 28 H (21-25) mmol/L ABG Total CO2 29 H (19-24) mmol/L ABG O2 Saturation 90.2 L (94-97) % Hemoglobin 12.6 L (13.0-17.5) gm/dL Potassium (3.5-5.1) mmol/L Chloride (98-107) mmol/L BUN (9-20) mg/dL Creatinine (0.66-1.25) mg/dL Glucose (74-99) mg/dL POC Glucose (mg/dL) 194 H (70-110) mg/dL Plasma Lactic Acid Aniceto (0.7-2.0) mmol/L Calcium (8.4-10.2) mg/dL Phosphorus (2.5-4.5) mg/dL Delta Bilirubin (0.0-0.2) mg/dL AST (17-59) U/L Total Protein (6.3-8.2) g/dL Albumin (3.5-5.0) g/dL Urine Protein (Negative) Urine Blood (Negative) Crossmatch See Detail 04/09/24 04/09/24 04/09/24 Range/Units 12:36 12:36 12:36 WBC 22.6 H (3.8-10.6) k/uL RBC 4.28 L (4.30-5.90) m/uL Hgb 12.3 L (13.0-17.5) gm/dL Hct 38.2 L (39.0-53.0) % Plt Count 132 L (150-450) k/uL PT 17.2 H (10.0-12.5) sec INR 1.7 H (<1.2) ABG pH (7.35-7.45) ABG pCO2 (35-45) mmHg ABG pO2 (83-108) mmHg ABG HCO3 (21-25) mmol/L ABG Total CO2 (19-24) mmol/L ABG O2 Saturation (94-97) % Hemoglobin (13.0-17.5) gm/dL Potassium (3.5-5.1) mmol/L Chloride 111 H (98-107) mmol/L BUN 26 H (9-20) mg/dL Creatinine 1.45 H (0.66-1.25) mg/dL Glucose 173 H (74-99) mg/dL POC Glucose (mg/dL) (70-110) mg/dL Plasma Lactic Acid Aniceto (0.7-2.0) mmol/L Calcium 7.9 L (8.4-10.2) mg/dL Phosphorus 2.1 L (2.5-4.5) mg/dL Delta Bilirubin 0.5 H (0.0-0.2) mg/dL AST 89 H (17-59) U/L Total Protein 4.3 L (6.3-8.2) g/dL Albumin 2.2 L (3.5-5.0) g/dL Urine Protein (Negative) Urine Blood (Negative) Crossmatch 04/09/24 04/09/24 04/09/24 Range/Units 14:04 17:01 19:47 WBC (3.8-10.6) k/uL RBC (4.30-5.90) m/uL Hgb (13.0-17.5) gm/dL Hct (39.0-53.0) % Plt Count (150-450) k/uL PT (10.0-12.5) sec INR (<1.2) ABG pH 7.53 H (7.35-7.45) ABG pCO2 33 L (35-45) mmHg ABG pO2 51 L* (83-108) mmHg ABG HCO3 27 H (21-25) mmol/L ABG Total CO2 28 H (19-24) mmol/L ABG O2 Saturation 90.0 L (94-97) % Hemoglobin 12.5 L (13.0-17.5) gm/dL Potassium (3.5-5.1) mmol/L Chloride (98-107) mmol/L BUN (9-20) mg/dL Creatinine (0.66-1.25) mg/dL Glucose (74-99) mg/dL POC Glucose (mg/dL) 163 H (70-110) mg/dL Plasma Lactic Acid Aniceto 2.3 H* (0.7-2.0) mmol/L Calcium (8.4-10.2) mg/dL Phosphorus (2.5-4.5) mg/dL Delta Bilirubin (0.0-0.2) mg/dL AST (17-59) U/L Total Protein (6.3-8.2) g/dL Albumin (3.5-5.0) g/dL Urine Protein (Negative) Urine Blood (Negative) Crossmatch 04/09/24 04/09/24 04/09/24 Range/Units 19:50 19:52 19:52 WBC 21.4 H (3.8-10.6) k/uL RBC 4.11 L (4.30-5.90) m/uL Hgb 12.1 L (13.0-17.5) gm/dL Hct 36.6 L (39.0-53.0) % Plt Count 121 L (150-450) k/uL PT 16.0 H (10.0-12.5) sec INR 1.6 H (<1.2) ABG pH (7.35-7.45) ABG pCO2 (35-45) mmHg ABG pO2 (83-108) mmHg ABG HCO3 (21-25) mmol/L ABG Total CO2 (19-24) mmol/L ABG O2 Saturation (94-97) % Hemoglobin (13.0-17.5) gm/dL Potassium (3.5-5.1) mmol/L Chloride (98-107) mmol/L BUN (9-20) mg/dL Creatinine (0.66-1.25) mg/dL Glucose (74-99) mg/dL POC Glucose (mg/dL) 193 H (70-110) mg/dL Plasma Lactic Acid Aniceto (0.7-2.0) mmol/L Calcium (8.4-10.2) mg/dL Phosphorus (2.5-4.5) mg/dL Delta Bilirubin (0.0-0.2) mg/dL AST (17-59) U/L Total Protein (6.3-8.2) g/dL Albumin (3.5-5.0) g/dL Urine Protein (Negative) Urine Blood (Negative) Crossmatch 04/09/24 04/09/24 04/09/24 Range/Units 19:52 19:52 23:26 WBC (3.8-10.6) k/uL RBC (4.30-5.90) m/uL Hgb (13.0-17.5) gm/dL Hct (39.0-53.0) % Plt Count (150-450) k/uL PT (10.0-12.5) sec INR (<1.2) ABG pH (7.35-7.45) ABG pCO2 (35-45) mmHg ABG pO2 (83-108) mmHg ABG HCO3 (21-25) mmol/L ABG Total CO2 (19-24) mmol/L ABG O2 Saturation (94-97) % Hemoglobin (13.0-17.5) gm/dL Potassium 3.4 L (3.5-5.1) mmol/L Chloride 113 H (98-107) mmol/L BUN 29 H (9-20) mg/dL Creatinine 1.32 H (0.66-1.25) mg/dL Glucose 170 H (74-99) mg/dL POC Glucose (mg/dL) 191 H (70-110) mg/dL Plasma Lactic Acid Aniceto 2.6 H* (0.7-2.0) mmol/L Calcium 8.0 L (8.4-10.2) mg/dL Phosphorus 2.1 L (2.5-4.5) mg/dL Delta Bilirubin 0.6 H (0.0-0.2) mg/dL AST 86 H (17-59) U/L Total Protein 4.4 L (6.3-8.2) g/dL Albumin 2.2 L (3.5-5.0) g/dL Urine Protein (Negative) Urine Blood (Negative) Crossmatch 04/10/24 04/10/24 04/10/24 Range/Units 01:00 04:02 04:02 WBC 17.3 H (3.8-10.6) k/uL RBC 3.89 L (4.30-5.90) m/uL Hgb 11.3 L (13.0-17.5) gm/dL Hct 34.5 L (39.0-53.0) % Plt Count 108 L (150-450) k/uL PT 15.5 H (10.0-12.5) sec INR 1.5 H (<1.2) ABG pH (7.35-7.45) ABG pCO2 (35-45) mmHg ABG pO2 (83-108) mmHg ABG HCO3 (21-25) mmol/L ABG Total CO2 (19-24) mmol/L ABG O2 Saturation (94-97) % Hemoglobin (13.0-17.5) gm/dL Potassium 3.2 L (3.5-5.1) mmol/L Chloride 117 H (98-107) mmol/L BUN 30 H (9-20) mg/dL Creatinine (0.66-1.25) mg/dL Glucose 184 H (74-99) mg/dL POC Glucose (mg/dL) (70-110) mg/dL Plasma Lactic Acid Aniceto (0.7-2.0) mmol/L Calcium 8.0 L (8.4-10.2) mg/dL Phosphorus (2.5-4.5) mg/dL Delta Bilirubin (0.0-0.2) mg/dL AST (17-59) U/L Total Protein (6.3-8.2) g/dL Albumin (3.5-5.0) g/dL Urine Protein (Negative) Urine Blood (Negative) Crossmatch 04/10/24 04/10/24 04/10/24 Range/Units 04:02 04:08 04:09 WBC (3.8-10.6) k/uL RBC (4.30-5.90) m/uL Hgb (13.0-17.5) gm/dL Hct (39.0-53.0) % Plt Count (150-450) k/uL PT (10.0-12.5) sec INR (<1.2) ABG pH 7.53 H (7.35-7.45) ABG pCO2 32 L (35-45) mmHg ABG pO2 57 L* (83-108) mmHg ABG HCO3 27 H (21-25) mmol/L ABG Total CO2 28 H (19-24) mmol/L ABG O2 Saturation 92.2 L (94-97) % Hemoglobin 11.6 L (13.0-17.5) gm/dL Potassium 3.4 L (3.5-5.1) mmol/L Chloride 118 H (98-107) mmol/L BUN 31 H (9-20) mg/dL Creatinine (0.66-1.25) mg/dL Glucose 168 H (74-99) mg/dL POC Glucose (mg/dL) 184 H (70-110) mg/dL Plasma Lactic Acid Aniceto (0.7-2.0) mmol/L Calcium 8.1 L (8.4-10.2) mg/dL Phosphorus 1.7 L (2.5-4.5) mg/dL Delta Bilirubin 0.5 H (0.0-0.2) mg/dL AST 81 H (17-59) U/L Total Protein 4.2 L (6.3-8.2) g/dL Albumin 2.0 L (3.5-5.0) g/dL Urine Protein (Negative) Urine Blood (Negative) Crossmatch 04/10/24 04/10/24 Range/Units 08:02 08:45 WBC (3.8-10.6) k/uL RBC (4.30-5.90) m/uL Hgb (13.0-17.5) gm/dL Hct (39.0-53.0) % Plt Count (150-450) k/uL PT (10.0-12.5) sec INR (<1.2) ABG pH (7.35-7.45) ABG pCO2 (35-45) mmHg ABG pO2 (83-108) mmHg ABG HCO3 (21-25) mmol/L ABG Total CO2 (19-24) mmol/L ABG O2 Saturation (94-97) % Hemoglobin (13.0-17.5) gm/dL Potassium (3.5-5.1) mmol/L Chloride (98-107) mmol/L BUN (9-20) mg/dL Creatinine (0.66-1.25) mg/dL Glucose (74-99) mg/dL POC Glucose (mg/dL) 154 H (70-110) mg/dL Plasma Lactic Acid Aniceto (0.7-2.0) mmol/L Calcium (8.4-10.2) mg/dL Phosphorus (2.5-4.5) mg/dL Delta Bilirubin (0.0-0.2) mg/dL AST (17-59) U/L Total Protein (6.3-8.2) g/dL Albumin (3.5-5.0) g/dL Urine Protein 1+ H (Negative) Urine Blood Large H (Negative) Crossmatch Assessment and Plan Plan: Acute subdural hematoma with evidence of herniation Cardiac arrest requiring prolonged resuscitation Acute hypoxic respiratory failure requiring mechanical ventilation Underlying history of HIV AIDS syndrome Underlying history of coronary artery disease Underlying history of hypertension Underlying history of COPD At this time patient is admitted to intensive care unit He was started on mechanical ventilation in the emergency room At this time we are awaiting arrival of multiple family members, they are waiting for gift of life evaluation Plan is to proceed with comfort care only and hospice care.
--- NOTE | 2024-04-10 11:17 | P.PN ---
Subjective Progress Note Date: 04/10/24 Principal diagnosis: Cardiac arrest This is a 63-year-old white male with history of multiple medical problems including COPD, HIV, coronary artery disease, patient presented to the ER with cardiac arrest. His neighbor saw the patient around noontime, and he was not acting normal. Around 5 PM, the neighbor went into the house to check on the patient, and the patient was found unresponsive down on the floor. CPR was initiated and EMS was brought in. Patient did receive Narcan, received CPR for asystole, patient had 2 rounds of CPR and gave 2 epinephrines. Patient went into PEA and then to normal sinus rhythm. Patient was brought into the ER intubated, and apparently he had a prolonged downtime. CT of the brain showed a large left acute subdural hemorrhage with subfalcine herniation, and suspected earlier tonsillar herniation. Apparently the ER physician discussed his condition with family who recommended DNR CODE STATUS and willing to proceed with comfort care measures once more family members could make it back to town. Apparently has a sister that is traveling from out of state to arrive sometime later today. Patient was made DNR brought into the ICU, at 1 point the patient developed hypertension placed on Cleviprex, but later on developed hypotension required short brief course of norepinephrine but presently he is off pressors and off blood pressure medications. To be hemodynamically stable during my evaluation in the ICU. Patient is now on assist-control rate of 20 tidal volume 450 FiO2 60% PEEP of 5 ABG showed a pO2 of 115 pCO2 44 pH of 7.33 hence his rate was increased to 24, his FiO2 cut down to 50%, and kept otherwise on the same ventilator settings. WBC count this morning is 16.6 hemoglobin 14.1 sodium is high at 153 hence his IV fluid to be changed to D5W and his BUN is 28 creatinine 1.04 patient is being evaluated by [facility] for possible organ donation. Patient was seen today on 04/08/2024, patient remains in the, intubated and mechanically ventilated. Patient is being being evaluated by the [facility] team, undergoing further workup before salvaging any organs for transplantation by the [facility] team. Patient remains on assist-control rate of 24 tidal volume 450 FiO2 60% and PEEP of 5 ABG showed a pO2 of 66 pCO2 45 pH of 7.29 hence his rate was increased to 28, FiO2 increased to 100% and PEEP increased to 10. Patient was on Versed drip for intermittent episodes of myoclonic jerks and tremors recommended Ativan however Ativan did not seem to hold him well, recommended that he goes back on Versed. Patient is developing hypotension requiring norepinephrine and vasopressin. He is getting maximal on both, if not improved patient will be given more fluid boluses, may even add dobutamine. However considering the patient is having ectopic beats I believe dobutamine will make him more prone to tachycardia. May consider Abl-Synephrine if necessary to replace norepinephrine. Hoping will control his tachycardia better this way overall the patient has futile prognosis, but we are maintaining the patient at this point mostly for [facility] team and hopefully get his organ salvage in the next 24 hours. Patient to be seen by neurology, EEG was done today, clinically the patient is not considered brain WBC count is 17.6 hemoglobin 14.9 sodium is 116 has the patient remains on D5W trying to correct his hypernatremia BUN is 28 creatinine 1.57. Fluid balance is positive almost 2 L in the last 24 hours Patient was today on 04/09/2024, remains in the ICU, remains intubated and mec hanically ventilated, much better today compared to yesterday nonetheless he still requiring high FiO2 of 90% with a PEEP of 8 still requiring pressors in the form of vasopressin and Bal-Synephrine heart rate seems to be better controlled today compared to yesterday. Patient is developing a picture of metabolic and respiratory alkalosis hence sodium bicarb this few infusion was discontinued. Patient is on 85% FiO2 with tidal volume of 550 rate of 32 and a PEEP of 8 showed a pO2 of 60 pCO2 36 pH of 7.49. Remains on Solu-Cortef at 100 mg IV push every 8 hours Bal-Synephrine is 0.1 mcg/kg/min vasopressin 0.03 units/min and he is on IV fluid at 125 cc/h. Sodium bicarb has been discontinued WBC count is 23.5 hemoglobin 13.2 lactic acid today is 3.1. Patient was seen today on 04/10/2024, remains in the ICU, patient is basically about the same. On assist-control rate of 32 tidal volume 550 FiO2 of 100% and PEEP of 5 ABG is marginal with a pO2 of 57 pCO2 32 pH of 7.53. Patient is not requiring as much pressors, he is off Bal-Synephrine he is on vasopressin at 0.02 units/min IV fluid remains at 125 cc/h, the team of [facility] is now recommending cardiac rather than brain protocol. Patient is supposed to have organ salvage sometime later today around 1 PM, and they are going to do the cardiac protocol rather than the brain protocol as it could not be fully completed.Patient remains unresponsive WBC count is 17.3 hemoglobin 11.3 basic metabolic profile is normal except for potassium of 3.4 renal profile is improving creatinine down to 1.13.Liver enzymes are normal. Chest x-ray is showing bibasilar atelectasis and small pleural effusions has the patient was given a dose of Lasix 20 mg IV push x 1 today Objective - Vital Signs Vital signs: Vital Signs Temp 98.0 F 04/10/24 08:00 Pulse 79 04/10/24 11:00 Resp 32 H 04/10/24 11:00 BP 102/71 04/10/24 11:00 Pulse Ox 98 04/10/24 11:00 FiO2 100 04/10/24 08:00 Intake & Output 04/09/24 04/10/24 04/10/24 18:59 06:59 18:59 Intake Total 2441.029 2064.317 760 Output Total 720 915 465 Balance 5333.679 2664.317 295 Weight 102 kg Intake: IV 286 186 115 .9NS Pressure bag 36 36 15 Magnesium Sulfate-D5w Pmx 200 1 gm In Dextrose/Water 1 100ml.bag @ 100 mls/hr IVPB Q1H MICHELLE Rx#: [id number] Piperacillin-Tazobactam 3 50 150 100 .375 gm In Sodium Chloride 0.9% 100 ml @ 25 mls/hr IVPB Q8H MICHELLE Rx#: [id number] Intake, IV Titration 2155.029 1878.317 645 Amount Dextrose 5% in Water 1, 300 000 ml @ 100 mls/hr IV . [id number] MICHELLE with Sodium Bicarb (1 Meq/ml) 150 ml Rx#:[id number] Phenylephrine 40 mg In 204.029 110.155 Sodium Chloride 0.9% 250 ml @ 0.5 MCG/KG/MIN 17. 412 mls/hr IV .[id number] MICHELLE Rx#:[id number] Piperacillin-Tazobactam 3 100 .375 gm In Sodium Chloride 0.9% 100 ml @ 25 mls/hr IVPB Q8H MICHELLE Rx#: [id number] Potassium Chloride 20 meq 200 In Water For Injection 1 100ml.bag @ 50 mls/hr IVPB Q2H MICHELLE Rx#: [id number] Sodium Chloride 0.9% 1, 1500 1500 645 000 ml @ 125 mls/hr IV . Q8H MICHELLE Rx#:[id number] Vasopressin 20 unit In 51 68.162 Sodium Chloride 0.9% 50 ml @ 0.03 UNITS/MIN 4.59 mls/hr IV .[id number] MICHELLE Rx# :[id number] Output: Gastric Drainage 250 Urine 720 665 465 Other: Voiding Method Indwelling Catheter Indwelling Catheter Indwelling Catheter ABP, PAP, CO, CI - Last Documented Arterial Blood Pressure 108/65 - Exam General: Revealed 63-year-old white male intubated mechanically ventilated Skin: Skin is warm and dry and no rashes or lesions are noted. Eye: Dilated and unreactive Ears, nose, mouth and throat: There are moist mucous membranes and no oral lesions. Endotracheal tube and orogastric tube are intact Neck: The neck is supple, there is no tenderness or JVD. Cardiovascular: There is a regular rate and rhythm. No murmur, rub or gallop is appreciated. Respiratory: Clear bilaterally no crackles rhonchi or wheezes Gastrointestinal: Soft nontender no rebound no guarding Musculoskeletal: No deformities, could not assess range of motion Neurological: Patient has no brainstem reflexes patient is comatose, apneic once disconnected from mechanical ventilation patient has negative corneal reflex negative caloric reflex no gag reflex, not do apnea test. As the patient's pulmonary status is marginal Psychiatric: Could not assess - Labs CBC & Chem 7: 04/10/24 04:02 04/10/24 04:02 Labs: Abnormal Lab Results - Last 24 Hours (Table) 04/07/24 04/09/24 04/09/24 Range/Units 17:20 12:35 12:36 WBC (3.8-10.6) k/uL RBC (4.30-5.90) m/uL Hgb (13.0-17.5) gm/dL Hct (39.0-53.0) % Plt Count (150-450) k/uL PT (10.0-12.5) sec INR (<1.2) ABG pH 7.53 H (7.35-7.45) ABG pCO2 34 L (35-45) mmHg ABG pO2 49 L* (83-108) mmHg ABG HCO3 28 H (21-25) mmol/L ABG Total CO2 29 H (19-24) mmol/L ABG O2 Saturation 90.2 L (94-97) % Hemoglobin 12.6 L (13.0-17.5) gm/dL Potassium (3.5-5.1) mmol/L Chloride (98-107) mmol/L BUN (9-20) mg/dL Creatinine (0.66-1.25) mg/dL Glucose (74-99) mg/dL POC Glucose (mg/dL) 194 H (70-110) mg/dL Plasma Lactic Acid Aniceto (0.7-2.0) mmol/L Calcium (8.4-10.2) mg/dL Phosphorus (2.5-4.5) mg/dL Delta Bilirubin (0.0-0.2) mg/dL AST (17-59) U/L Total Protein (6.3-8.2) g/dL Albumin (3.5-5.0) g/dL Urine Protein (Negative) Urine Blood (Negative) Crossmatch See Detail 04/09/24 04/09/24 04/09/24 Range/Units 12:36 12:36 12:36 WBC 22.6 H (3.8-10.6) k/uL RBC 4.28 L (4.30-5.90) m/uL Hgb 12.3 L (13.0-17.5) gm/dL Hct 38.2 L (39.0-53.0) % Plt Count 132 L (150-450) k/uL PT 17.2 H (10.0-12.5) sec INR 1.7 H (<1.2) ABG pH (7.35-7.45) ABG pCO2 (35-45) mmHg ABG pO2 (83-108) mmHg ABG HCO3 (21-25) mmol/L ABG Total CO2 (19-24) mmol/L ABG O2 Saturation (94-97) % Hemoglobin (13.0-17.5) gm/dL Potassium (3.5-5.1) mmol/L Chloride 111 H (98-107) mmol/L BUN 26 H (9-20) mg/dL Creatinine 1.45 H (0.66-1.25) mg/dL Glucose 173 H (74-99) mg/dL POC Glucose (mg/dL) (70-110) mg/dL Plasma Lactic Acid Aniceto (0.7-2.0) mmol/L Calcium 7.9 L (8.4-10.2) mg/dL Phosphorus 2.1 L (2.5-4.5) mg/dL Delta Bilirubin 0.5 H (0.0-0.2) mg/dL AST 89 H (17-59) U/L Total Protein 4.3 L (6.3-8.2) g/dL Albumin 2.2 L (3.5-5.0) g/dL Urine Protein (Negative) Urine Blood (Negative) Crossmatch 04/09/24 04/09/24 04/09/24 Range/Units 14:04 17:01 19:47 WBC (3.8-10.6) k/uL RBC (4.30-5.90) m/uL Hgb (13.0-17.5) gm/dL Hct (39.0-53.0) % Plt Count (150-450) k/uL PT (10.0-12.5) sec INR (<1.2) ABG pH 7.53 H (7.35-7.45) ABG pCO2 33 L (35-45) mmHg ABG pO2 51 L* (83-108) mmHg ABG HCO3 27 H (21-25) mmol/L ABG Total CO2 28 H (19-24) mmol/L ABG O2 Saturation 90.0 L (94-97) % Hemoglobin 12.5 L (13.0-17.5) gm/dL Potassium (3.5-5.1) mmol/L Chloride (98-107) mmol/L BUN (9-20) mg/dL Creatinine (0.66-1.25) mg/dL Glucose (74-99) mg/dL POC Glucose (mg/dL) 163 H (70-110) mg/dL Plasma Lactic Acid Aniceto 2.3 H* (0.7-2.0) mmol/L Calcium (8.4-10.2) mg/dL Phosphorus (2.5-4.5) mg/dL Delta Bilirubin (0.0-0.2) mg/dL AST (17-59) U/L Total Protein (6.3-8.2) g/dL Albumin (3.5-5.0) g/dL Urine Protein (Negative) Urine Blood (Negative) Crossmatch 04/09/24 04/09/24 04/09/24 Range/Units 19:50 19:52 19:52 WBC 21.4 H (3.8-10.6) k/uL RBC 4.11 L (4.30-5.90) m/uL Hgb 12.1 L (13.0-17.5) gm/dL Hct 36.6 L (39.0-53.0) % Plt Count 121 L (150-450) k/uL PT 16.0 H (10.0-12.5) sec INR 1.6 H (<1.2) ABG pH (7.35-7.45) ABG pCO2 (35-45) mmHg ABG pO2 (83-108) mmHg ABG HCO3 (21-25) mmol/L ABG Total CO2 (19-24) mmol/L ABG O2 Saturation (94-97) % Hemoglobin (13.0-17.5) gm/dL Potassium (3.5-5.1) mmol/L Chloride (98-107) mmol/L BUN (9-20) mg/dL Creatinine (0.66-1.25) mg/dL Glucose (74-99) mg/dL POC Glucose (mg/dL) 193 H (70-110) mg/dL Plasma Lactic Acid Aniceto (0.7-2.0) mmol/L Calcium (8.4-10.2) mg/dL Phosphorus (2.5-4.5) mg/dL Delta Bilirubin (0.0-0.2) mg/dL AST (17-59) U/L Total Protein (6.3-8.2) g/dL Albumin (3.5-5.0) g/dL Urine Protein (Negative) Urine Blood (Negative) Crossmatch 04/09/24 04/09/24 04/09/24 Range/Units 19:52 19:52 23:26 WBC (3.8-10.6) k/uL RBC (4.30-5.90) m/uL Hgb (13.0-17.5) gm/dL Hct (39.0-53.0) % Plt Count (150-450) k/uL PT (10.0-12.5) sec INR (<1.2) ABG pH (7.35-7.45) ABG pCO2 (35-45) mmHg ABG pO2 (83-108) mmHg ABG HCO3 (21-25) mmol/L ABG Total CO2 (19-24) mmol/L ABG O2 Saturation (94-97) % Hemoglobin (13.0-17.5) gm/dL Potassium 3.4 L (3.5-5.1) mmol/L Chloride 113 H (98-107) mmol/L BUN 29 H (9-20) mg/dL Creatinine 1.32 H (0.66-1.25) mg/dL Glucose 170 H (74-99) mg/dL POC Glucose (mg/dL) 191 H (70-110) mg/dL Plasma Lactic Acid Aniceto 2.6 H* (0.7-2.0) mmol/L Calcium 8.0 L (8.4-10.2) mg/dL Phosphorus 2.1 L (2.5-4.5) mg/dL Delta Bilirubin 0.6 H (0.0-0.2) mg/dL AST 86 H (17-59) U/L Total Protein 4.4 L (6.3-8.2) g/dL Albumin 2.2 L (3.5-5.0) g/dL Urine Protein (Negative) Urine Blood (Negative) Crossmatch 04/10/24 04/10/24 04/10/24 Range/Units 01:00 04:02 04:02 WBC 17.3 H (3.8-10.6) k/uL RBC 3.89 L (4.30-5.90) m/uL Hgb 11.3 L (13.0-17.5) gm/dL Hct 34.5 L (39.0-53.0) % Plt Count 108 L (150-450) k/uL PT 15.5 H (10.0-12.5) sec INR 1.5 H (<1.2) ABG pH (7.35-7.45) ABG pCO2 (35-45) mmHg ABG pO2 (83-108) mmHg ABG HCO3 (21-25) mmol/L ABG Total CO2 (19-24) mmol/L ABG O2 Saturation (94-97) % Hemoglobin (13.0-17.5) gm/dL Potassium 3.2 L (3.5-5.1) mmol/L Chloride 117 H (98-107) mmol/L BUN 30 H (9-20) mg/dL Creatinine (0.66-1.25) mg/dL Glucose 184 H (74-99) mg/dL POC Glucose (mg/dL) (70-110) mg/dL Plasma Lactic Acid Aniceto (0.7-2.0) mmol/L Calcium 8.0 L (8.4-10.2) mg/dL Phosphorus (2.5-4.5) mg/dL Delta Bilirubin (0.0-0.2) mg/dL AST (17-59) U/L Total Protein (6.3-8.2) g/dL Albumin (3.5-5.0) g/dL Urine Protein (Negative) Urine Blood (Negative) Crossmatch 04/10/24 04/10/24 04/10/24 Range/Units 04:02 04:08 04:09 WBC (3.8-10.6) k/uL RBC (4.30-5.90) m/uL Hgb (13.0-17.5) gm/dL Hct (39.0-53.0) % Plt Count (150-450) k/uL PT (10.0-12.5) sec INR (<1.2) ABG pH 7.53 H (7.35-7.45) ABG pCO2 32 L (35-45) mmHg ABG pO2 57 L* (83-108) mmHg ABG HCO3 27 H (21-25) mmol/L ABG Total CO2 28 H (19-24) mmol/L ABG O2 Saturation 92.2 L (94-97) % Hemoglobin 11.6 L (13.0-17.5) gm/dL Potassium 3.4 L (3.5-5.1) mmol/L Chloride 118 H (98-107) mmol/L BUN 31 H (9-20) mg/dL Creatinine (0.66-1.25) mg/dL Glucose 168 H (74-99) mg/dL POC Glucose (mg/dL) 184 H (70-110) mg/dL Plasma Lactic Acid Aniceto (0.7-2.0) mmol/L Calcium 8.1 L (8.4-10.2) mg/dL Phosphorus 1.7 L (2.5-4.5) mg/dL Delta Bilirubin 0.5 H (0.0-0.2) mg/dL AST 81 H (17-59) U/L Total Protein 4.2 L (6.3-8.2) g/dL Albumin 2.0 L (3.5-5.0) g/dL Urine Protein (Negative) Urine Blood (Negative) Crossmatch 04/10/24 04/10/24 Range/Units 08:02 08:45 WBC (3.8-10.6) k/uL RBC (4.30-5.90) m/uL Hgb (13.0-17.5) gm/dL Hct (39.0-53.0) % Plt Count (150-450) k/uL PT (10.0-12.5) sec INR (<1.2) ABG pH (7.35-7.45) ABG pCO2 (35-45) mmHg ABG pO2 (83-108) mmHg ABG HCO3 (21-25) mmol/L ABG Total CO2 (19-24) mmol/L ABG O2 Saturation (94-97) % Hemoglobin (13.0-17.5) gm/dL Potassium (3.5-5.1) mmol/L Chloride (98-107) mmol/L BUN (9-20) mg/dL Creatinine (0.66-1.25) mg/dL Glucose (74-99) mg/dL POC Glucose (mg/dL) 154 H (70-110) mg/dL Plasma Lactic Acid Aniceto (0.7-2.0) mmol/L Calcium (8.4-10.2) mg/dL Phosphorus (2.5-4.5) mg/dL Delta Bilirubin (0.0-0.2) mg/dL AST (17-59) U/L Total Protein (6.3-8.2) g/dL Albumin (3.5-5.0) g/dL Urine Protein 1+ H (Negative) Urine Blood Large H (Negative) Crossmatch Assessment and Plan Assessment: Impression: Acute hypoxic respiratory failure secondary to cardiac arrest Acute subdural hematoma/mass with herniation History of coronary artery disease with total occlusion of RCA History of underlying COPD History of benign essential hypertension History of HIV/AIDS syndrome Recommendation: Brain protocol was done today could not do the apnea test, as he seems extremely marginal Continue ventilatory support Continue hemodynamic support GI and DVT prophylaxis [facility] is on board, planning organ salvage later today around 1 PM Critical time is over 30 minutes Will continue to follow Time with Patient: Greater than 30
[2024-04-10 11:21] LABS: Glucose,Whole Blood 155 mg/dL (70-110)
[2024-04-10] MEDS ORDERED: MORPHINE SULFATE 2 MG/ML SYRINGE IVP PRN (12:45)
[2024-04-10] MEDS: HEPARIN SODIUM 1,000 UN/ML (10ML VL) IVP ONE (13:12)
[2024-04-10 13:24] VITALS: RESP 0
[2024-04-10 13:41] VITALS: PULSE 35
[2024-04-10 13:46] VITALS: BP 28/21
--- NOTE | 2024-04-11 09:25 | P.DS ---
Providers Date of admission: 04/06/24 20:34 Expected date of discharge: 04/11/24 Attending physician: Daniela Rojo Consults: 04/06/24 20:25 Consult Physician Stat Consulting Provider: Roni Onofre Consult Reason/Comments: cardiac arrest, subdural Do you want consulting provider notified?: Already Contacted 04/08/24 06:41 Consult Physician Stat Consulting Provider: Fady Dickinson Consult Reason/Comments: subdural hemorrhage, [facility] of life candidate Do you want consulting provider notified?: Yes 04/08/24 12:34 Consult Physician Routine Consulting Provider: Mina Wallace Consult Reason/Comments: fast heart rate Do you want consulting provider notified?: Yes Primary care physician: Daniela Rojo [facility] Course: Diagnosis on discharge: Acute subdural hematoma with evidence of herniation Cardiac arrest requiring prolonged resuscitation Acute hypoxic respiratory failure requiring mechanical ventilation Underlying history of HIV AIDS syndrome Underlying history of coronary artery disease Underlying history of hypertension Underlying history of COPD Hospital course: Jack Luna, is a 63-year-old male who was found unresponsive on the floor of his house by his neighbor, CPR was initiated and EMS were called patient was brought into emergency room. He was evaluated in the emergency room vital examination on presentation revealed a temperature of 95.2 pulse 110 respiration 18 blood pressure 158/70 pulse ox 100% on mechanical ventilation Laboratory data revealed a white blood count of 20.3 hemoglobin 15.4 platelet count 208 ABG revealed a pH of 6.97 pCO2 75 pO2 179 sodium 145 potassium 3.3 chloride 111 CO2 17 BUN 25 creatinine 1.23 AST 113 ALT 66 ammonia level 85 creatinine kinase 620 serum alcohol level less than 10 Testing in the emergency room revealed CT scan of the brain revealed left acute subdural hemorrhage with subfalcine herniation and suspected early tonsillar herniation. Family was contacted regarding patient condition in the emergency room, and need to transfer to a tertiary care center, however they opted for admission to our hospital with plan to proceed with comfort care only and hospice care. Patient was admitted to ICU, on mechanical ventilation, awaiting arrival of multiple family members Past medical history is significant for underlying history of hypertension, history of COPD, history of obstructive sleep apnea maintained on BiPAP, history of gastroesophageal reflux disease, history of osteoarthritis, and history of HIV AIDS syndrome. On 04/08/2024 patient remains in the intensive care unit on mechanical ventilation patient requiring increased vasopressors. [facility] life process has been initiated workup in process critical care and neurology services following. On 04/09/2024, patient was seen and examined in the ICU, he is intubated sedated maintained on mechanical ventilation, his O2 saturation remains low, despite high FiO2 of 85%, and PEEP of 8. At this time family are working with [facility] of [facility], to help with organ donation process. Patient is comfortable on current measures. On 04/10/2024 patient remains in the intensive care unit gift of life process initiated. Per nursing's services patient will go to the OR today for [facility] of life. Patient remains on mechanical ventilation without sedation brain protocol completed. Patient on 04/10/2024 Patient Condition at Discharge: Critical Plan - Discharge Summary New Discharge Prescriptions: No Action Levothyroxine Sodium [Synthroid] 25 mcg PO DAILY Emtricitabine/Tenofov Alafenam [Descovy 200-25 mg Tablet] 1 tab PO DAILY Citalopram Hydrobromide [CeleXA] 40 mg PO DAILY Gabapentin 800 mg PO TID Cetirizine HCl [Zyrtec] 10 mg PO DAILY Baclofen [Lioresal] 20 mg PO QID Nitroglycerin Sl Tabs [Nitrostat] 0.4 mg SUBLINGUAL Q5M PRN tab PRN Reason: Chest Pain Clopidogrel [Plavix] 75 mg PO DAILY tab Clindamycin Phosphate 1% Swab 1 applic TOPICAL BID PRN PRN Reason: skin issues Prostate Therapy Supplement 1 tab PO DAILY Albuterol Inhaler [Ventolin Hfa Inhaler] 2 puff INHALATION RT-Q4H PRN PRN Reason: Shortness Of Breath Atorvastatin [Lipitor] 40 mg PO DAILY Furosemide [Lasix] 40 mg PO BID L.acidoph,Paracasei, B.lactis [Probiotic] 1 cap PO DAILY Metoprolol Tartrate [Lopressor] 25 mg PO BID polyethylene glycoL 3350 [Miralax] 17 gm PO DAILY Tolterodine ER [Detrol LA] 4 mg PO DAILY traZODone HCL [Desyrel] 100 mg PO HS Morphine Sulfate Ir [MSIR] 15 mg PO DAILY Dolutegravir Sodium [Tivicay] 50 mg PO DAILY Ipratropium Eitzen 0.06%Nasal [Atrovent Nasal 0.06%] 2 spray EA NOSTRIL BID PRN PRN Reason: Allergy Symptoms Phentermine HCl [Adipex-P] 37.5 mg PO DAILY Docusate Sodium [Dok] 100 mg PO HS PRN PRN Reason: Constipation Rivaroxaban [Xarelto] 20 mg PO DAILY Etravirine 200 mg PO BID Morphine Sulfate ER [Ms Contin] 15 mg PO BID Multivitamins, Thera [Multivitamin (formulary)] 1 tab PO DAILY Mupirocin 2% Oint [Bactroban 2% Oint] 1 applic TOPICAL TID Discharge Medication List Emtricitabine/Tenofov Alafenam [Descovy 200-25 mg Tablet] 1 tab PO DAILY 09/01/18 [History] Levothyroxine Sodium [Synthroid] 25 mcg PO DAILY 09/01/18 [History] Citalopram Hydrobromide [CeleXA] 40 mg PO DAILY 03/31/19 [History] Baclofen [Lioresal] 20 mg PO QID 11/22/20 [History] Cetirizine HCl [Zyrtec] 10 mg PO DAILY 11/22/20 [History] Gabapentin 800 mg PO TID 11/22/20 [History] Morphine Sulfate Ir [MSIR] 15 mg PO DAILY 05/10/21 [History] Dolutegravir Sodium [Tivicay] 50 mg PO DAILY 08/14/21 [History] Ipratropium Eitzen 0.06%Nasal [Atrovent Nasal 0.06%] 2 spray EA NOSTRIL BID PRN 08/14/21 [History] Docusate Sodium [Dok] 100 mg PO HS PRN 10/23/21 [History] Phentermine HCl [Adipex-P] 37.5 mg PO DAILY 10/23/21 [History] Clopidogrel [Plavix] 75 mg PO DAILY tab 11/04/21 [Rx] Nitroglycerin Sl Tabs [Nitrostat] 0.4 mg SUBLINGUAL Q5M PRN tab 11/04/21 [Rx] Etravirine 200 mg PO BID 01/02/22 [History] Rivaroxaban [Xarelto] 20 mg PO DAILY 01/02/22 [History] Albuterol Inhaler [Ventolin Hfa Inhaler] 2 puff INHALATION RT-Q4H PRN 04/07/24 [History] Atorvastatin [Lipitor] 40 mg PO DAILY 04/07/24 [History] Clindamycin Phosphate 1% Swab 1 applic TOPICAL BID PRN 04/07/24 [History] Furosemide [Lasix] 40 mg PO BID 04/07/24 [History] L.acidoph,Paracasei, B.lactis [Probiotic] 1 cap PO DAILY 04/07/24 [History] Metoprolol Tartrate [Lopressor] 25 mg PO BID 04/07/24 [History] Morphine Sulfate ER [Ms Contin] 15 mg PO BID 04/07/24 [History] Multivitamins, Thera [Multivitamin (formulary)] 1 tab PO DAILY 04/07/24 [History] Mupirocin 2% Oint [Bactroban 2% Oint] 1 applic TOPICAL TID 04/07/24 [History] Prostate Therapy Supplement 1 tab PO DAILY 04/07/24 [History] Tolterodine ER [Detrol LA] 4 mg PO DAILY 04/07/24 [History] polyethylene glycoL 3350 [Miralax] 17 gm PO DAILY 04/07/24 [History] traZODone HCL [Desyrel] 100 mg PO HS 04/07/24 [History] Follow up Appointment(s)/Referral(s): Daniela Rojo MD [Primary Care Provider] - 1-2 days Discharge Disposition: - Preliminary Cause of Preliminary Cause of : intracranial bleed
== END 2024-04-10 13:54 | disposition expired | DRG 64 ==
LOC: EC 17:35 → 2SICU 20:34
PROVIDERS: ADMIT Internal Medicine; ATTEND Internal Medicine
PROC: 5A1945Z Respiratory Ventilation, 24-96 Consecutive Hours (ICD-10-PCS; principal; 2024-04-06)
PROC: 3E043XZ Introduction of Vasopressor into Central Vein, Percutaneous Approach (ICD-10-PCS; 2024-04-06)
PROC: 5A12012 Performance of Cardiac Output, Single, Manual (ICD-10-PCS; 2024-04-06)
PROC: 02HV33Z Insertion of Infusion Device into Superior Vena Cava, Percutaneous Approach (ICD-10-PCS; 2024-04-08)
PROC: 03HY32Z Insertion of Monitoring Device into Upper Artery, Percutaneous Approach (ICD-10-PCS; 2024-04-08)
PROC: 4A133B1 Monitoring of Arterial Pressure, Peripheral, Percutaneous Approach (ICD-10-PCS; 2024-04-08)
PROC: 4A133J1 Monitoring of Arterial Pulse, Peripheral, Percutaneous Approach (ICD-10-PCS; 2024-04-08)
DX: I62.01 Nontraumatic acute subdural hemorrhage (principal); G93.5 Compression of brain; J96.01 Acute respiratory failure with hypoxia; J98.11 Atelectasis; N17.9 Acute kidney failure, unspecified; B20 Human immunodeficiency virus [HIV] disease; E87.0 Hyperosmolality and hypernatremia; E87.4 Mixed disorder of acid-base balance; G93.1 Anoxic brain damage, not elsewhere classified; I49.49 Other premature depolarization; I48.91 Unspecified atrial fibrillation; J44.9 Chronic obstructive pulmonary disease, unspecified; N28.1 Cyst of kidney, acquired; I10 Essential (primary) hypertension; R40.2A Nontraumatic coma due to underlying condition; I95.9 Hypotension, unspecified; F32.A Depression, unspecified; Z51.5 Encounter for palliative care; Z66 Do not resuscitate; I45.10 Unspecified right bundle-branch block; G62.9 Polyneuropathy, unspecified; I46.9 Cardiac arrest, cause unspecified; M19.90 Unspecified osteoarthritis, unspecified site; Z79.01 Long term (current) use of anticoagulants; G47.33 Obstructive sleep apnea (adult) (pediatric); K21.9 Gastro-esophageal reflux disease without esophagitis; M54.9 Dorsalgia, unspecified; F17.200 Nicotine dependence, unspecified, uncomplicated; F41.0 Panic disorder [episodic paroxysmal anxiety]; I25.10 Atherosclerotic heart disease of native coronary artery without angina pectoris; I25.82 Chronic total occlusion of coronary artery; Z79.02 Long term (current) use of antithrombotics/antiplatelets; Z79.82 Long term (current) use of aspirin; Z79.890 Hormone replacement therapy; Z79.899 Other long term (current) drug therapy; Z95.5 Presence of coronary angioplasty implant and graft; Z60.2 Problems related to living alone; Z88.1 Allergy status to other antibiotic agents; Z88.2 Allergy status to sulfonamides
CPT/HCPCS: 36415; 36600; 70450; 71045; 71260; 72125; 74177; 80048; 80053; 80143; 80306; 80320; 81001; 82140; 82150; 82248; 82550; 82805; 83605; 83690; 83735; 84100; 84484; 85025; 85027; 85379; 85384; 85610; 85730; 86850; 86900; 86901; 86920; 87635; 93005; 93306; 94003; 95822